=== PATIENT | male | born 1955 | race Caucasian/White ===

== ENCOUNTER 2016-12-09 04:18 | Inpatient (IN) | payer MEDICARE, OTHER ==
[2016-12-09] MEDS ORDERED: NS 0.9% 1000 ML* 1,000 ML IV SCH (04:45)
[2016-12-09 04:57] LABS: Hematocrit 38 % (42-52); Hemoglobin 12.8 g/dl (14.0-18.0); Mean Corpuscular HGB Conc 34 g/dl (31-36); Mean Corpuscular Hemoglobin 28 pg (27-31); Mean Corpuscular Volume 84 fL (80-94); Mean Platelet Volume 9 um3 (7.4-10.4); Red Blood Count 4.51 10^6/ul (4.0-5.4); Red Cell Distribution Width 13 % (10.5-15); White Blood Count 6.5 10^3/ul (3.5-10.8)
[2016-12-09 05:07] LABS: Albumin 3.8 g/dL (3.2-5.2); BUN/Creatinine Ratio 13.3 (8-20); Calcium 9.1 mg/dL (8.6-10.3); EGFR African American 84.3 (>60); EGFR Non-African American 65.5 (>60); Globulin 3.1 g/dL (2-4); Total Bilirubin 0.3 mg/dL (0.2-1.0); Total Protein 6.9 g/dL (6.4-8.9)
[2016-12-09] MEDS ORDERED: Insulin REGULAR(*) 1 UNITS UNIT IV PUSH ONE (05:12)
[2016-12-09] MEDS ORDERED: hydrALAZINE IV* 20 MG/ML VIAL IV PRN (05:50)
[2016-12-09] MEDS ORDERED: Melatonin (NF) 3 MG TAB PO PRN (05:50)
[2016-12-09] MEDS ORDERED: Acetaminophen TAB* 325 MG PO PRN (05:50)
[2016-12-09] MEDS ORDERED: Ondansetron INJ* 2 MG/ML VIAL IV PRN (05:53)
--- NOTE | 2016-12-09 06:14 | ED ---
Rachel Ugalde Matthew, scribed for Nicanor Knowles on 12/09/16 at 0523 . Neurological HPI - HPI Summary HPI Summary: A 61 y/o male presents to the ED by EMS after sustaining a fall this morning. Per EMS, the patient was found on the ground. At that time, he had slurred speech and unsteady gait. The patient was last seen well at 21:00 yesterday. Upon arrival to the ED, the patient states that he feels fine and denies any complaints. - History of Current Complaint Chief Complaint: EDNeurologicalDeficit Stated Complaint: STROKE Time Seen by Provider: 12/09/16 04:27 Hx Obtained From: Patient Onset/Duration: Started hours ago, Resolved Onset Severity: Moderate Current Severity: None Pain Intensity: 0 Pain Scale Used: 0-10 Numeric Associated Signs and Symptoms: Positive: Negative - Additional Pertinent History Primary Care Physician: ARABELLA - Allergy/Home Medications Allergies/Adverse Reactions: Allergies Allergy/AdvReac Type Severity Reaction Status Date / Time No Known Allergies Allergy Verified 03/12/13 05:38 PMH/Surg Hx/FS Hx/Imm Hx Endocrine/Hematology History: Reports: Hx Diabetes Cardiovascular History: Reports: Hx Angina, Hx Coronary Artery Disease, Hx Hypercholesterolemia, Hx Hypertension, Other Cardiovascular Problems/Disorders - carotid stenosis, intermediate coronary syndrome Denies: Hx Pacemaker/ICD Respiratory History: Reports: Other Respiratory Problems/Disorders - smoker Denies: Hx Asthma, Hx Chronic Obstructive Pulmonary Disease (COPD) History: Denies: Hx Dialysis, Hx Renal Disease Musculoskeletal History: Reports: Hx Back Problems - spinal fusion, laminerctomy decompression Sensory History: Reports: Hx Contacts or Glasses Denies: Hx Hearing Aid Opthamlomology History: Reports: Hx Contacts or Glasses Neurological History: Reports: Hx Seizures, Hx Spinal Cord Injury, Hx Transient Ischemic Attacks (TIA), Other Neuro Impairments/Disorders - essential tremor disorder Denies: Hx Dementia Psychiatric History: Reports: Hx Depression - off & on past 25 yrs, Hx Inpatient Treatment - in [facility] 2009, Hx Suicide Attempt - SI/ATTEMPT 05/2010 Denies: Hx Panic Disorder, Hx of Violent Episodes Against Others - Surgical History Surgery Procedure, Year, and Place: cardiac event, [facility] 1979, spinal fusion 1969-no metal he believes, lamanectomy, dental work, multiple broken bones including skull in high school PRIOR MRI 06/20/08, right CEA Hx Anesthesia Reactions: No - Immunization History Date of Tetanus Vaccine: unk Date of Influenza Vaccine: unk Infectious Disease History: No Infectious Disease History: Denies: Traveled Outside the [place] in Last 30 Days - Family History Known Family History: Positive: Diabetes - Social History Alcohol Use: None Hx Substance Use: No Substance Use Type: Reports: None Hx Tobacco Use: Yes Smoking Status (MU): Heavy Every Day Tobacco Smoker Type: Cigarettes Amount Used/How Often: 1 PPD Length of Time of Smoking/Using Tobacco: 40 years Have You Smoked in the Last Year: Yes Review of Systems Constitutional: Negative Eyes: Negative ENT: Negative Cardiovascular: Negative Respiratory: Negative Gastrointestinal: Negative Genitourinary: Negative Musculoskeletal: Negative Skin: Negative Neurological: Negative Psychological: Normal All Other Systems Reviewed And Are Negative: Yes Physical Exam Triage Information Reviewed: Yes Vital Signs On Initial Exam: Initial Vitals Temp Pulse Resp BP Pulse Ox 98.0 F 84 16 126/66 100 12/09/16 04:51 12/09/16 04:51 12/09/16 04:51 12/09/16 04:51 12/09/16 04:51 Vital Signs Reviewed: Yes Appearance: Positive: Well-Appearing, No Pain Distress Skin: Positive: Warm, Skin Color Reflects Adequate Perfusion, Dry Head/Face: Positive: Normal Head/Face Inspection Eyes: Positive: EOMI, [place] ENT: Positive: Normal ENT inspection Neck: Positive: Supple, Nontender Respiratory/Lung Sounds: Positive: Clear to Auscultation, Breath Sounds Present Cardiovascular: Positive: RRR, Pulses are Symmetrical in both Upper and Lower Extremities Abdomen Description: Positive: Nontender, Soft Bowel Sounds: Positive: Present Musculoskeletal: Positive: Normal, Strength/ROM Intact Neurological: Positive: Normal, Sensory/Motor Intact, Alert, Oriented to Person Place, Time, CN Intact II-III, Speech Normal. Negative: Facial Droop, Slurred Speech, Pronator Drift Present Psychiatric: Positive: Affect/Mood Appropriate - Brittney Coma Scale Coma Scale Total: 15 Diagnostics - Vital Signs Vital Signs Temp Pulse Resp BP Pulse Ox 12/09/16 04:51 98.0 F 84 16 126/66 100 - Laboratory Lab Results: Lab Results 12/09/16 Range/Units 04:45 WBC 6.5 (3.5-10.8) 10^3/ul RBC 4.51 (4.0-5.4) 10^6/ul Hgb 12.8 L (14.0-18.0) g/dl Hct 38 L (42-52) % MCV 84 (80-94) fL MCH 28 (27-31) pg MCHC 34 (31-36) g/dl RDW 13 (10.5-15) % Plt Count 154 (150-450) 10^3/ul MPV 9 (7.4-10.4) um3 Neut % (Auto) 70.4 (38-83) % Lymph % (Auto) 15.6 L (25-47) % [place] % (Auto) 10.6 H (1-9) % Eos % (Auto) 2.2 (0-6) % Baso % (Auto) 1.2 (0-2) % Absolute Neuts (auto) 4.6 (1.5-7.7) 10^3/ul Absolute Lymphs (auto) 1.0 (1.0-4.8) 10^3/ul Absolute Monos (auto) 0.7 (0-0.8) 10^3/ul Absolute Eos (auto) 0.1 (0-0.6) 10^3/ul Absolute Basos (auto) 0.1 (0-0.2) 10^3/ul Absolute Nucleated RBC 0 10^3/ul Nucleated RBC % 0 Result Diagrams: 12/09/16 04:45 12/09/16 04:45 Lab Statement: Any lab studies that have been ordered have been reviewed, and results considered in the medical decision making process. - Radiology CXR Xray Interpretation: No Acute Changes Radiology Interpretation Completed By: ED Physician - CT Brain CT CT Interpretation: No Acute Changes - No CT evidence of acute infarct, hemorrhage, or mass effect. Patchy periventricular and subcortical white matter hypoattenuations seen. These are nonspecific and can be seen in the setting of chronic microvascular ischemic changes. Intracranial vascular calcifications noted. Nonspecific 8.3mm lobular hyper density seen in the left foramina of luscka of unclear clinical significance. Recommended follow up with MRI for further characterization. No hydrocephalus. CT Interpretation Completed By: Radiologist NIH Scale - NIH Scale Level of Consciousness: Alert/Keenly Responsive Ask Patient the Month and His/Her Age: Both Correct Ask Pt to Open/Close Eyes and Crude Tester/Release Non-Paretic Hand: Both Correctly Best Gaze (Only Horizontal Eye Movement): Normal Visual Field Testing: No Visual Loss Facial Paresis-Pt to Smile & Close Eyes or Grimace Symmetry: Normal/Symmetrical Motor Function - Right Arm: No Drift-Holds 10 Seconds Motor Function - Left Arm: No Drift-Holds 10 Seconds Motor Function - Right Leg: No Drift-Holds 10 Seconds Motor Function - Left Leg: No Drift-Holds 10 Seconds Limb Ataxia-Must be out of Proportion to Weakness Present: Absent Sensory (Use Pinprick to Test Arms/Legs/Trunk/Face): Normal Best Language (Describe Picture, Name Items): No Aphasia Dysarthria (Read Several Words): Normal Extinction and Inattention: No Abnormality Total Score: 0 Course/Dx - Course Assessment/Plan: A 61 y/o male presents to the ED by EMS after sustaining a fall this morning. Per EMS, the patient was found on the ground. At that time, he had slurred speech and unsteady gait. The patient was last seen well at 21: 00 yesterday. Upon arrival to the ED, the patient states that he feels fine and denies any complaints. Labs were reviewed and show an elevated glucose of 537. CXR shows no acute changes. Brain CT shows no evidence of acute infarct, hemorrhage, or mass effect. NIH was found to be 0. The patients symptoms were resolving upon arrival to the ED. Discussed the case with Dr. Junior who will admit the patient into his services. - Diagnoses Provider Diagnoses: TIA (transient ischemic attack), Hyperglycemia During the Visit The Following Alert/Code Occurred: Code Romero - Physician Notifications Discussed Care of Patient With: Dr. Junior (Hospitalist) at 05:44 -- Notified of patient's history and will admit the patient into his services. - Critical Care Time Critical Care Time: 30-74 min Discharge - Discharge Plan Condition: Stable Disposition: ADMITTED TO [facility] documentation as recorded by the Rachel shah Matthew accurately reflects the service I personally performed and the decisions made by me, Nicanor Knowles.
[2016-12-09 07:00] LABS: HDL Cholesterol 44.9 mg/dL
--- NOTE | 2016-12-09 08:02 | RAD ---
Indication: Stroke, weakness. CT of the brain was performed without IV contrast. Comparison is made with previous exam dated March 12, 2013 Ventricular structures are midline. No midline shift is noted. The extraction spaces are unremarkable. There is no evidence of intracranial mass or hemorrhage. No other high or low density lesions are identified. Periventricular lucency consistent with chronic ischemic White matter change is noted. No significant change is noted since prior exam. The bony structures demonstrates mastoid air cells and paranasal sinuses to be grossly unremarkable. IMPRESSION: CHRONIC ISCHEMIC WHITE MATTER CHANGE WITH NO INTRACRANIAL MASS OR HEMORRHAGE. Findings discussed with Dr. Knowles at 4:[address] Whitten from [facility]. This is documented on PACS.
--- NOTE | 2016-12-09 08:04 | HP ---
H&P (Free Text) History and Physical: PCP: Arcenio Shell MD Date/Time of Evaluation: 12/09/2016 0600 CC: syncope, TIA HPI: Mr Doty is a 61YO male HX recurrent TIAs & DM who was up at 0215 having some diarrhea. After leaving the restroom, he suddenly developed some spinning dizziness and the next thing he knew he was on his hands and knees across his house outside of his bedroom door on his hands and knees. His who had been asleep heard him knocking and helped him up to bed. He was noted to have a lump on the back of his head. Some uncertain time later, he got up to use the restroom again having diarrhea and upon leaving the bathroom his noticed he paused and stared into space, not responding to her talking to him. This lasted only a minute and when he came out of it his speech was garbled and he had a R facial droop. Upon arrival to [facility], all his symptoms were resolved. He does admit to some non-radiating substernal chest pressure with mild SOB, but no N/V, diaphoresis, or other associations after the syncope. PMedHx DM2 HTN septic knee recurrent TIAs carotid artery disease s/p R CEA essential tremor depression Allergies No Known Allergies Allergy (Verified 03/12/13 05:38) Ambulatory Orders Nursing to reconcile. PSurgHx lumbar laminectomy R CEA SocHx: current 1/2PPD cigarettes, no alcohol or recreational drugs; lives with his ; full code status FamHx: positive for HTN, DM ROS: as above, otherwise reviewed and all were negative Constitutional: NAD, normally developed, obese white male vitals: Vital Signs Temp 36.7 C 12/09/16 04:51 Pulse 84 12/09/16 04:51 Resp 16 12/09/16 04:51 BP 126/66 12/09/16 04:51 Pulse Ox 100 12/09/16 04:51 Intake & Output 12/08/16 12/08/16 12/09/16 11:59 23:59 12:59 Weight 79.832 kg HEENM: atraumatic; sclera/conjunctiva: non-icteric/clear; hearing: clinically intact; oropharynx: clear, mucosa moist Neck: soft tissue: non-tender; thyroid: normal Pulmonary: clear to auscultation bilaterally, good aeration, no accessory muscle use CV: RR/RR, normal S1S2, no carotid bruit, no jugular venous distention, 2+ B DP/ PT, no edema Abdominal: soft, non-distended, non-tender, no rebound/guarding/rigidity, normoactive bowel sounds, no hepatosplenomegaly or masses, no costovertebral angle tenderness Musculoskeletal: general: grossly intact; gait: stable Integumental: normal appearance & texture of exposed skin Neurological cranial nerves III/IV/: symmetric light reflex, EOMI/PERRLA V: intact facial sensation VII: intact facial symmetry VIII: intact hearing IX/X: symmetric palatal motion, no dysarthria XII: midline tongue protrusion, normal voice articulation motor: L handed LUE: 4/5 proximally, distally, & delivery helper strength RUE: 4/5 proximally, distally, & delivery helper strength LLE: 4/5 proximally & distally RLE: 4/5 proximally & distally coordination finger/nose: symmetric, hindered by essential tremor sensory crude touch: intact globally pinprick: mildly decreased LUE proprioception: intact B feet Psychiatric orientation: AA&O to PPS affect: calm mood: cooperative/pleasant eye contact: good content: reliable memory: absent regarding part of event responses: timely insight: fair Testing: Lab Results 12/09/16 12/09/16 12/09/16 Range/Units 04:45 04:45 04:45 WBC 6.5 (3.5-10.8) 10^3/ul RBC 4.51 (4.0-5.4) 10^6/ul Hgb 12.8 L (14.0-18.0) g/dl Hct 38 L (42-52) % MCV 84 (80-94) fL MCH 28 (27-31) pg MCHC 34 (31-36) g/dl RDW 13 (10.5-15) % Plt Count 154 (150-450) 10^3/ul MPV 9 (7.4-10.4) um3 Neut % (Auto) 70.4 (38-83) % Lymph % (Auto) 15.6 L (25-47) % [place] % (Auto) 10.6 H (1-9) % Eos % (Auto) 2.2 (0-6) % Baso % (Auto) 1.2 (0-2) % Absolute Neuts (auto) 4.6 (1.5-7.7) 10^3/ul Absolute Lymphs (auto) 1.0 (1.0-4.8) 10^3/ul Absolute Monos (auto) 0.7 (0-0.8) 10^3/ul Absolute Eos (auto) 0.1 (0-0.6) 10^3/ul Absolute Basos (auto) 0.1 (0-0.2) 10^3/ul Absolute Nucleated RBC 0 10^3/ul Nucleated RBC % 0 INR (Anticoag Therapy) 0.86 L (0.89-1.11) Sodium 128 L (133-145) mmol/L Potassium 5.0 (3.5-5.0) mmol/L Chloride 96 L (101-111) mmol/L Carbon Dioxide 27 (22-32) mmol/L Anion Gap 5 (2-11) mmol/L BUN 15 (6-24) mg/dL Creatinine 1.13 (0.67-1.17) mg/dL Est GFR ( Amer) 84.3 (>60) Est GFR (Non-Af Amer) 65.5 (>60) BUN/Creatinine Ratio 13.3 (8-20) Glucose 537 H* (70-100) mg/dL POC Glucose (mg/dL) (74-106) mg/dL Calcium 9.1 (8.6-10.3) mg/dL Total Bilirubin 0.30 (0.2-1.0) mg/dL AST 8 L (13-39) U/L ALT 13 (7-52) U/L Alkaline Phosphatase 61 (34-104) U/L Total Protein 6.9 (6.4-8.9) g/dL Albumin 3.8 (3.2-5.2) g/dL Globulin 3.1 (2-4) g/dL Albumin/Globulin Ratio 1.2 (1-3) Triglycerides 300 mg/dL Cholesterol 173 mg/dL LDL Cholesterol 68 mg/dL HDL Cholesterol 44.9 mg/dL 12/09/16 12/09/16 Range/Units 06:39 07:36 WBC (3.5-10.8) 10^3/ul RBC (4.0-5.4) 10^6/ul Hgb (14.0-18.0) g/dl Hct (42-52) % MCV (80-94) fL MCH (27-31) pg MCHC (31-36) g/dl RDW (10.5-15) % Plt Count (150-450) 10^3/ul MPV (7.4-10.4) um3 Neut % (Auto) (38-83) % Lymph % (Auto) (25-47) % [place] % (Auto) (1-9) % Eos % (Auto) (0-6) % Baso % (Auto) (0-2) % Absolute Neuts (auto) (1.5-7.7) 10^3/ul Absolute Lymphs (auto) (1.0-4.8) 10^3/ul Absolute Monos (auto) (0-0.8) 10^3/ul Absolute Eos (auto) (0-0.6) 10^3/ul Absolute Basos (auto) (0-0.2) 10^3/ul Absolute Nucleated RBC 10^3/ul Nucleated RBC % INR (Anticoag Therapy) (0.89-1.11) Sodium (133-145) mmol/L Potassium (3.5-5.0) mmol/L Chloride (101-111) mmol/L Carbon Dioxide (22-32) mmol/L Anion Gap (2-11) mmol/L BUN (6-24) mg/dL Creatinine (0.67-1.17) mg/dL Est GFR ( Amer) (>60) Est GFR (Non-Af Amer) (>60) BUN/Creatinine Ratio (8-20) Glucose (70-100) mg/dL POC Glucose (mg/dL) 233 H 252 H (74-106) mg/dL Calcium (8.6-10.3) mg/dL Total Bilirubin (0.2-1.0) mg/dL AST (13-39) U/L ALT (7-52) U/L Alkaline Phosphatase (34-104) U/L Total Protein (6.4-8.9) g/dL Albumin (3.2-5.2) g/dL Globulin (2-4) g/dL Albumin/Globulin Ratio (1-3) Triglycerides mg/dL Cholesterol mg/dL LDL Cholesterol mg/dL HDL Cholesterol mg/dL ECG, personally reviewed: CXR, personally reviewed: IMPRESSION: No CT evidence of acute infarct, hemorrhage, or mass effect. Patchy periventricular and subcortical white matter hypoattenuation seen. These are non-specific and can be seen in the setting of chronic microvascular ischemic changes. Intracranial vascular calcifications noted. Impression: 61M presenting with syncope and post-dromal chest pressure/SOB, slurred speech, & R facial droop DIAGNOSIS & PLAN Primary syncope/TIA : telemetry : neurochecks : supplemental oxygen : aspirin : carotid US : MRI brain WO : no indication for PT/ST/OT : supportive care chest pressure : telemetry : supplemental oxygen : aspirin : trend troponin : consider stress test on Saturday vs cardiology consult in AM DM2, uncontrolled : insulin carb ratio diet : basal/bolus/correctional protocol : check A1c Secondary HTN : review meds once reconciled carotid artery disease s/p R CEA : review meds once reconciled essential tremor : review meds once reconciled depression : review meds once reconciled Admission Rational: inpatient for TIA & cardiac work up not able to be completed w/i 24hours DVTp: heparin SQ Code Status: full HCP:
[2016-12-09 08:34] LABS: Troponin I 0.01 ng/mL (<0.04)
--- NOTE | 2016-12-09 08:37 | PN ---
Subjective Date of Service: 12/09/16 Interval History: Patient reports he feels much better and his symptoms resolved prior to coming into the hospital and haven't returned. He reports it has been "many years since a TIA, maybe 2012". He denies any weakness, dizziness, numbness or tingling. No slurred speech. He reports he feels a little wobbly on his feet. Per patient he started to developed diarrhea 10 months ago intermittently, starting 3 months ago it has been daily with up to 6 water stools a day. He is followed by Dr. Farris. Objective Active Medications: Acetaminophen (Tylenol Tab*) 650 mg PO Q6H PRN PRN Reason: FEVER/PAIN Aspirin (Aspirin Tab*) 325 mg PO DAILY ANGUS Docusate Sodium (Colace Cap*) 200 mg PO BID ANGUS Heparin Sodium (Porcine) (Heparin Vial(*)) 5,000 units SUBCUT Q8HR ANGUS Hydralazine HCl (Apresoline Iv*) 10 mg IV Q4H PRN PRN Reason: Systolic >170 Sodium Chloride (Ns 0.9% 1000 Ml*) 1,000 mls @ 125 mls/hr IV PER RATE [facility] Insulin Glargine (Lantus(*)) 16 units SUBCUT 2100 ANGUS Stop: 12/10/16 20:00 Insulin Human Lispro (Humalog*) 0 units SUBCUT AC ANGUS PRN Reason: Protocol Insulin Human Lispro (Humalog*) 0 units SUBCUT ACHS ANGUS PRN Reason: Protocol Melatonin (Melatonin (Nf)) 3 mg PO BEDTIME PRN; Protocol PRN Reason: Sleep Omeprazole (Prilosec Cap*) 20 mg PO DAILY@0600 ANGUS Ondansetron HCl (Zofran Inj*) 4 mg IV Q6H PRN PRN Reason: NAUSEA Vital Signs 12/09/16 12/09/16 12/09/16 06:00 06:30 07:00 Pulse Rate 77 Respiratory 15 16 17 Rate Blood Pressure 114/59 107/40 104/51 (mmHg) O2 Sat by Pulse 99 Oximetry 12/09/16 08:08 Pulse Rate 81 Respiratory 18 Rate Blood Pressure (mmHg) O2 Sat by Pulse Oximetry Oxygen Devices in Use Now: None Appearance: obese female laying in bed in NAD. A+O x3 Eyes: No Scleral Icterus, PERRLA Ears/Nose/Mouth/Throat: - - Dry MM Neck: NL Appearance and Movements; NL JVP Respiratory: Symmetrical Chest Expansion and Respiratory Effort, Clear to Auscultation Cardiovascular: NL Sounds; No Murmurs; No JVD, RRR, No Edema Abdominal: NL Sounds; No Tenderness; No Distention Extremities: No Edema, No Clubbing, Cyanosis Skin: No Rash or Ulcers, No Nodules or Sclerosis Neurological: Alert and Oriented x 3, NL Sensation, NL Muscle Strength and Tone , - - tongue is midlien. No noted facial droop. No pronator drift, Clear speech. 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 Strength 5/5 throught, full ROM throughout. + sensation to extremities Lines/Tubes/Other Access: Clean, Dry and Intact Peripheral IV Nutrition: Taking PO's Result Diagrams: 12/09/16 04:45 12/09/16 04:45 Additional Lab and Data: Lab Results 12/09/16 Range/Units 04:45 WBC 6.5 (3.5-10.8) 10^3/ul RBC 4.51 (4.0-5.4) 10^6/ul Hgb 12.8 L (14.0-18.0) g/dl Hct 38 L (42-52) % MCV 84 (80-94) fL MCH 28 (27-31) pg MCHC 34 (31-36) g/dl RDW 13 (10.5-15) % Plt Count 154 (150-450) 10^3/ul MPV 9 (7.4-10.4) um3 Neut % (Auto) 70.4 (38-83) % Lymph % (Auto) 15.6 L (25-47) % [place] % (Auto) 10.6 H (1-9) % Eos % (Auto) 2.2 (0-6) % Baso % (Auto) 1.2 (0-2) % Absolute Neuts (auto) 4.6 (1.5-7.7) 10^3/ul Absolute Lymphs (auto) 1.0 (1.0-4.8) 10^3/ul Absolute Monos (auto) 0.7 (0-0.8) 10^3/ul Absolute Eos (auto) 0.1 (0-0.6) 10^3/ul Absolute Basos (auto) 0.1 (0-0.2) 10^3/ul Absolute Nucleated RBC 0 10^3/ul Nucleated RBC % 0 Assess/Plan/Problems-Billing Assessment: Mr. Doty is a 61 yo male with a PMH of hx of stroke 13 years ago , and hx of multiple TIAs, s/p carotid endarectomy, DM2, hx of septic knee and HTN who presented to the emergency department on 12/09 with c/o syncope, Chest pressure/sob, diarrhea, dizziness and slurred speech and R facial droop, symptoms resolved [place] [facility] [place] - Patient Problems (1) TIA (transient ischemic attack) Comment: - Concerning for TIA. Possible syncopal episode. Pts symptoms have resolved. - Plan for MRI WO, carotid US, CTA head/neck - Continue tele monitoring, neuro checks - Pt underwent a SINGH 02/2013 with no noted PFO. Plan to repeat TTE with bubble study. - Neuro consult - check fasting lipids in am (2) Syncope Comment: - unclear etiology at this time - continue tele monitoring - check orthostatic - TTE (3) Chest pain Comment: - resolved, suspect stress related - Initial troponin 0.01, recheck 2nd trop - negative Nuclear stress test 12/2015 (4) Hyponatremia Comment: - suspect dehydration. - continue NS @ 125 ml/hr - recheck in am (5) Diabetes mellitus Comment: - FSBG ACHS - Continue Lantus 16 units Qday, Lispro SS and carb counting scale - add on HgA1C (6) Essential tremor Comment: - continue lamictal (7) Chronic diarrhea Comment: - followed by Dr. Farris - developed diarrhea 10 months ago, no dx. Plan for Barium study at the end of the month. - suspect the patient is dehydrated. - Fluid resusitation. - monitor stool output (8) DVT prophylaxis Comment: SQ heparin (9) Full code status Status and Disposition: inpatient for syncope, and concern for TIA. Home when medically stable
--- NOTE | 2016-12-09 08:47 | RAD ---
Indication: Stroke. Single frontal view of the chest performed at 0446 hours was reviewed. Comparison is made with previous exam dated April 19, 2016. No mediastinal shift is noted. Heart is of normal size and configuration. Lung landers appear clear. IMPRESSION: NO ACTIVE CARDIOPULMONARY DISEASE IS NOTED.
[2016-12-09] MEDS ORDERED: Docusate CAP* 100 MG PO SCH (09:00)
[2016-12-09] MEDS ORDERED: Iohexol 350* (CONTRAST) 500 ML MDV IV ONE (09:27)
[2016-12-09] MEDS: Aspirin TAB* 325 MG PO SCH ×2 (10:08→11:04)
[2016-12-09] MEDS: Insulin LISPRO* 1 UNITS UNIT SUBCUT SCH ×7 (10:09→21:06)
[2016-12-09] MEDS: Omeprazole CAP* 20 MG PO SCH (10:09)
--- NOTE | 2016-12-09 11:54 | RAD ---
Indication: Transient ischemic attack. Contrast: Administered 80.3 ml of OMNIPAQUE 350 mg/ml CTA of the neck and head was performed after IV contrast administration. Coronal, sagittal and 3-D reconstructed images were obtained. The aortic arch and origin of the great vessels are unremarkable. Atherosclerosis of the aortic arch is noted. The common carotid arteries bilaterally are unremarkable. The right common carotid bulb demonstrates no intimal wall thickening. The origin of the right internal carotid artery is unremarkable. No evidence of carotid artery dissection is noted. The left common carotid artery demonstrates soft plaque in the mid left common carotid artery. There is plaque at the origin of the left internal carotid artery which is calcific. There may be a less than 50% stenosis of the origin of left internal carotid artery. No evidence of carotid artery dissection is noted. CTA of the head demonstrates intracranial carotid arteries demonstrate normal bifurcation. Anterior and middle cerebral arteries are unremarkable. Posterior cerebral arteries are unremarkable. No aneurysmal dilatation or branch occlusion is noted. IMPRESSION: Less than 50% STENOSIS AT THE ORIGIN OF THE LEFT INTERNAL CAROTID ARTERY DUE TO CALCIFIED PLAQUE. NO CAROTID ARTERY DISSECTION IS NOTED. NO BRANCH OCCLUSION IS NOTED. NO A RESIDUAL DILATATION IS NOTED.
[2016-12-09] MEDS: NS 0.9% 1000 ML* 1,000 ML IV SCH ×2 (12:55→21:23)
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
[2016-12-09] MEDS ORDERED: Ondansetron TAB* 4 MG PO PRN (17:57)
[2016-12-09] MEDS: Dicyclomine CAP* 10 MG PO SCH ×2 (20:11→23:27)
[2016-12-09] MEDS ORDERED: Insulin GLARGINE(*) 1 UNITS UNIT SUBCUT SCH ×3 (21:00)
[2016-12-09] MEDS: lamoTRIgine TAB(*) 100 MG PO SCH (21:05)
[2016-12-09] MEDS: LORazepam TAB(*) 1 MG PO SCH (21:06)
[2016-12-10] MEDS: Dicyclomine CAP* 10 MG PO SCH ×3 (05:58→17:33)
[2016-12-10] MEDS: Heparin VIAL(*) 5000 UNITS/ML VIAL (FIVE THOUSAND) SUBCUT SCH ×2 (05:59→13:54)
[2016-12-10] MEDS: Omeprazole CAP* 20 MG PO SCH (05:59)
[2016-12-10 07:05] LABS: Hematocrit 35 % (42-52); Mean Corpuscular HGB Conc 35 g/dl (31-36); Mean Corpuscular Hemoglobin 29 pg (27-31); Mean Corpuscular Volume 84 fL (80-94); Mean Platelet Volume 8 um3 (7.4-10.4); Red Blood Count 4.16 10^6/ul (4.0-5.4); Red Cell Distribution Width 13 % (10.5-15); White Blood Count 6.9 10^3/ul (3.5-10.8)
[2016-12-10 07:17] LABS: BUN/Creatinine Ratio 11.7 (8-20); Calcium 8.8 mg/dL (8.6-10.3); EGFR African American 104.2 (>60); EGFR Non-African American 81.1 (>60); HDL Cholesterol 46.7 mg/dL; Potassium 4.4 mmol/L (3.5-5.0)
[2016-12-10] MEDS ORDERED: BuPROPion XL* 300 MG TAB.XL PO SCH (09:00)
[2016-12-10] MEDS ORDERED: Sertraline* 50 MG TAB PO SCH (09:00)
[2016-12-10] MEDS: Insulin LISPRO* 1 UNITS UNIT SUBCUT SCH ×6 (09:28→17:33)
[2016-12-10] MEDS: Aspirin TAB* 325 MG PO SCH (09:29)
[2016-12-10] MEDS: LORazepam TAB(*) 1 MG PO SCH ×2 (09:30→17:26)
[2016-12-10] MEDS: lamoTRIgine TAB(*) 100 MG PO SCH (09:30)
--- NOTE | 2016-12-10 10:05 | RAD ---
Indication: Transient ischemic attack, weakness. Image Sequences: Sagittal and axial T1, axial T2, FLAIR, diffusion and susceptibility weighted images of the brain were obtained. Comparison is made with previous exam dated March 12, 2013. Ventricular structures are midline. No midline shift is noted. The extra-axial spaces are unremarkable. Periventricular signal abnormality in the left parietal lobe is noted. This was present on previous exam and has not significantly changed. This likely represents an old infarct and is unchanged. No restriction of diffusion is noted. Currently, no areas of restriction of diffusion is noted. The FLAIR images demonstrate some increased signal in the bridgette which is unchanged from previous exam. Mild ethmoid sinusitis is noted. The orbits are otherwise unremarkable. The mastoid air cells are unremarkable. IMPRESSION: 1. On the FLAIR images, periventricular signal abnormality in the left lateral ventricle appears to be unchanged from previous exam and is consistent with old infarct. No restriction of diffusion is noted currently. 2. Chronic ischemic White matter change is noted. This appears stable since previous exam.
[2016-12-10 12:22] VITALS: BP 138/64
--- NOTE | 2016-12-10 14:28 | CONSULT ---
Subjective Reason for Visit: syncope, TIA Admission Date: 12/09/16 Glucose Level On Admission: 537 History Of Present Illness: Mr. Doty is a 61 year old male who was found by his after a syncopal episode with garbled speech and right sided facial droop. He has a history of multiple TIAs in the past. He was brought to the hospital and admitted. On admission, he was found to have a glucose of 537. He has been a type II diabetic for years. Has never had any formal diabetes education. Does not count carbohydrates. Checks blood sugar twice a day. He reports that his fasting blood glucose has been in the 170-200 range. On the day that he had the syncopal episode, he ate a pint of ice cream and some banana cream pie. He is not exercising at all right now due to a healing ulcer on his right foot, but has been more active in the past. Patient History Surgical History: Yes Surgery Procedure, Year, and Place: SPINAL FUSION, ENDARTECTOMY 2012, COMPRESSION FX, LAMINECTOMY, KNEE SURGERY Lives With: Partner Marital Status: Social Support: is at bedside and is supportive Preferred/Primary Language: Frisian Hx Tobacco Use: Yes Exercise: none now, enjoys swimming Review Of Systems - Review of Systems Constant: No Weight Loss, No Weight Gain, No Anorexia, No Poor Appetite Respiratory: No Shortness Of Breath, No Productive Cough, No Pulmonary Conditions, - Abdominal: - - reports diarrhea Skin: - - healing ulcer plantar aspect of right foot Endocrine: - - reports polyuria, polyphagia, and polydipsia Objective Allergies Allergy/AdvReac Type Severity Reaction Status Date / Time No Known Allergies Allergy Verified 03/12/13 05:38 Home Medications Medication Instructions Recorded Confirmed Type glipiZIDE TAB.XL* [Glucotrol Xl*] 5 mg PO DAILY 03/12/13 12/09/16 History BuPROPion XL* [Bupropion XL*] 300 mg PO DAILY tab.xl 10/03/15 12/09/16 Rx lamoTRIgine TAB(*) [Lamictal 200 mg PO BID tab 10/03/15 12/09/16 Rx TAB(*)] metFORMIN* [Glucophage 1000 MG TAB 1,000 mg PO 0800,1700 tab 10/03/15 12/09/16 Rx *] Lisinopril TAB* [Prinivil TAB 10 20 mg PO DAILY #30 tab 10/19/15 12/09/16 Rx MG*] Dicyclomine CAP* [Bentyl CAP*] 10 mg PO Q6H 12/09/16 12/09/16 History Insulin LISPRO* [HumaLOG*] 1 units SUBCUT SEE INSTRUCTIONS 12/09/16 12/09/16 History Lorazepam [Ativan 1 MG TAB] 1 mg PO TID 12/09/16 12/09/16 History Metoclopramide TAB* 10 mg PO TID PRN 12/09/16 12/09/16 History Ondansetron HCl [Zofran 4 MG TAB] 4 mg PO Q8H PRN 12/09/16 12/09/16 History Pravastatin Sodium [Pravachol] 20 mg PO DAILY 12/09/16 12/09/16 History Sertraline HCl 50 mg PO DAILY 12/09/16 12/09/16 History Sertraline HCl [Zoloft] 200 mg PO BID 12/09/16 12/09/16 History Hospital Medications: Current Medications Acetaminophen (Tylenol Tab*) 650 mg PO Q6H PRN PRN Reason: FEVER/PAIN Aspirin (Aspirin Tab*) 325 mg PO DAILY [facility] Last Admin: 12/10/16 09:29 Dose: 325 mg Bupropion HCl (Bupropion Xl*) 300 mg PO DAILY [facility] Last Admin: 12/10/16 09:49 Dose: 300 mg Dicyclomine HCl (Bentyl Cap*) 10 mg PO Q6H [facility] Last Admin: 12/10/16 13:49 Dose: 10 mg Heparin Sodium (Porcine) (Heparin Vial(*)) 5,000 units SUBCUT Q8HR [facility] Last Admin: 12/10/16 13:54 Dose: Not Given Hydralazine HCl (Apresoline Iv*) 10 mg IV Q4H PRN PRN Reason: Systolic >170 Insulin Glargine (Lantus(*)) 16 units SUBCUT 2100 [facility] Stop: 12/10/16 20:00 Last Admin: 12/09/16 21:07 Dose: 16 units Insulin Human Lispro (Humalog*) 0 units SUBCUT AC [facility] PRN Reason: Protocol Last Admin: 12/10/16 13:14 Dose: 7 units Insulin Human Lispro (Humalog*) 0 units SUBCUT ACHS [facility] PRN Reason: Protocol Last Admin: 12/10/16 13:15 Dose: 6 units Lamotrigine (Lamictal Tab(*)) 200 mg PO BID [facility] Last Admin: 12/10/16 09:30 Dose: 200 mg Lorazepam (Ativan Tab(*)) 1 mg PO TID [facility] Last Admin: 12/10/16 09:30 Dose: 1 mg Melatonin (Melatonin (Nf)) 3 mg PO BEDTIME PRN; Protocol PRN Reason: Sleep Omeprazole (Prilosec Cap*) 20 mg PO DAILY@0600 [facility] Last Admin: 12/10/16 05:59 Dose: 20 mg Ondansetron HCl (Zofran Inj*) 4 mg IV Q6H PRN PRN Reason: NAUSEA Ondansetron HCl (Zofran Tab*) 4 mg PO Q8H PRN PRN Reason: NAUSEA Sertraline HCl (Zoloft*) 50 mg PO DAILY [facility] Last Admin: 12/10/16 09:32 Dose: 50 mg Lab Data: Sodium 134 mmol/L (133-145) 12/10/16 06:31 Potassium 4.4 mmol/L (3.5-5.0) 12/10/16 06:31 BUN 11 mg/dL (6-24) 12/10/16 06:31 Creatinine 0.94 mg/dL (0.67-1.17) 12/10/16 06:31 Hemoglobin A1c 9.7 % (Less than 6.0) H 12/09/16 04:45 Calcium 8.8 mg/dL (8.6-10.3) 12/10/16 06:31 AST 8 U/L (13-39) L 12/09/16 04:45 ALT 13 U/L (7-52) 12/09/16 04:45 Triglycerides 239 mg/dL 12/10/16 06:31 Cholesterol 179 mg/dL 12/10/16 06:31 LDL Cholesterol 85 mg/dL 12/10/16 06:31 Vital Signs: Vital Signs 12/10/16 12/10/16 12/10/16 07:51 07:58 08:00 Temperature Pulse Rate 70 Respiratory 20 15 15 Rate Blood Pressure 115/60 (mmHg) O2 Sat by Pulse 96 Oximetry 12/10/16 12/10/16 12/10/16 09:30 11:30 12:09 Temperature 36.7 C Pulse Rate 72 Respiratory 14 15 14 Rate Blood Pressure 138/64 (mmHg) O2 Sat by Pulse 99 Oximetry 12/10/16 13:49 Temperature Pulse Rate Respiratory 16 Rate Blood Pressure (mmHg) O2 Sat by Pulse Oximetry Height: 5 ft 7 in Weight: 80.286 kg Body Mass Index (BMI): 27.7 Physical Exam General Appearance: Positive: Alert, Oriented x3, Well Developed, Overweight, Lying In Bed Dentition: Positive: Dentition in Good Repair Respiratory: Positive: Non-Labored Peripheral Extremities: Positive: Pulse: Dosalis Pedis Skin: Ulcers - 1 cm healing ulcer right plantar foot, Insulin Injection Sites - benign Plan Of Care Patient's Next Step: Pt to be discharged to home. He has a significant knowledge deficit related to diabetes. We discussed in detail carbohydrate counting and reading nutrition labels, as well as signs and symptoms of hyper and hypoglycemia. Discussed weight and exercise and their role in the disease process. Briefly discussed the pathophysiology and progression of the disease. I encouraged him to follow up at [facility] for further diabetes education, Living Well with Diabetes, and/or DSME classes. He and his are interested in this and will follow up on an outpatient basis Referral To: [facility] For Further OutPT Diabetic Training Diagnosis: Type II diabetes, not well controlled Discharge Plan: Follow up at [facility] as an outpatient Education Prior Diabetic Education: No Education Provided: Insulin To Carb Ratio and Carb Counting, Blood Glucose Monitoring Handouts Provided: Living well with diabetes, my plate, 60 gm. carbohydrate Goals Goals: According to the [place] [employer], the following are your goals for Hemaglobin A1C, Blood Glucose, Cholesterol and Blood Pressure. Hemaglobin A1C * <7.0% for most * <6.5% for "healthy" * <8.0% for "Less Healthy" Blood Glucose * Fasting Blood Glucose: 80-130 mg/dl * 2 Hour Post Prandial Glucose <180 mg/dl Cholesterol * Triglycerides <150 * LDL <100, Overt CVD <70 * HDL >40
--- NOTE | 2016-12-10 16:44 | DCNOTE ---
Subjective Date of Service: 12/10/16 Interval History: Pt reports he feels much better and would like to go home. Pt has been ambulating around the unit w/o difficulty. No dizziness, sob or CP. No fevers or chills Objective Active Medications: Acetaminophen (Tylenol Tab*) 650 mg PO Q6H PRN PRN Reason: FEVER/PAIN Aspirin (Aspirin Tab*) 325 mg PO DAILY [facility] Last Admin: 12/10/16 09:29 Dose: 325 mg Bupropion HCl (Bupropion Xl*) 300 mg PO DAILY [facility] Last Admin: 12/10/16 09:49 Dose: 300 mg Dicyclomine HCl (Bentyl Cap*) 10 mg PO Q6H [facility] Last Admin: 12/10/16 13:49 Dose: 10 mg Heparin Sodium (Porcine) (Heparin Vial(*)) 5,000 units SUBCUT Q8HR [facility] Last Admin: 12/10/16 13:54 Dose: Not Given Hydralazine HCl (Apresoline Iv*) 10 mg IV Q4H PRN PRN Reason: Systolic >170 Insulin Glargine (Lantus(*)) 16 units SUBCUT 2100 [facility] Stop: 12/10/16 20:00 Last Admin: 12/09/16 21:07 Dose: 16 units Insulin Human Lispro (Humalog*) 0 units SUBCUT AC [facility] PRN Reason: Protocol Last Admin: 12/10/16 13:14 Dose: 7 units Insulin Human Lispro (Humalog*) 0 units SUBCUT ACHS [facility] PRN Reason: Protocol Last Admin: 12/10/16 13:15 Dose: 6 units Lamotrigine (Lamictal Tab(*)) 200 mg PO BID [facility] Last Admin: 12/10/16 09:30 Dose: 200 mg Lorazepam (Ativan Tab(*)) 1 mg PO TID [facility] Last Admin: 12/10/16 09:30 Dose: 1 mg Melatonin (Melatonin (Nf)) 3 mg PO BEDTIME PRN; Protocol PRN Reason: Sleep Omeprazole (Prilosec Cap*) 20 mg PO DAILY@0600 [facility] Last Admin: 12/10/16 05:59 Dose: 20 mg Ondansetron HCl (Zofran Inj*) 4 mg IV Q6H PRN PRN Reason: NAUSEA Ondansetron HCl (Zofran Tab*) 4 mg PO Q8H PRN PRN Reason: NAUSEA Sertraline HCl (Zoloft*) 50 mg PO DAILY [facility] Last Admin: 12/10/16 09:32 Dose: 50 mg Vital Signs 12/09/16 12/09/16 12/09/16 19:40 20:00 20:11 Temperature 98.4 F Pulse Rate 91 Respiratory 16 15 16 Rate Blood Pressure 112/88 (mmHg) O2 Sat by Pulse 97 Oximetry 12/09/16 12/09/16 12/09/16 21:06 22:11 23:06 Temperature Pulse Rate Respiratory 16 14 15 Rate Blood Pressure (mmHg) O2 Sat by Pulse Oximetry 12/09/16 12/09/16 12/10/16 23:27 23:54 03:59 Temperature 98.7 F 98.2 F Pulse Rate 81 71 Respiratory 15 16 16 Rate Blood Pressure 137/59 146/63 (mmHg) O2 Sat by Pulse 97 96 Oximetry 12/10/16 12/10/16 12/10/16 05:58 07:51 07:58 Temperature Pulse Rate 70 Respiratory 16 20 15 Rate Blood Pressure 115/60 (mmHg) O2 Sat by Pulse 96 Oximetry 12/10/16 12/10/16 12/10/16 08:00 09:30 11:30 Temperature Pulse Rate Respiratory 15 14 15 Rate Blood Pressure (mmHg) O2 Sat by Pulse Oximetry 12/10/16 12/10/16 12:09 13:49 Temperature 98.0 F Pulse Rate 72 Respiratory 14 16 Rate Blood Pressure 138/64 (mmHg) O2 Sat by Pulse 99 Oximetry Oxygen Devices in Use Now: None Appearance: 61 yo male sitting up on the side of the bed in NAD. A+Ox3. Eyes: No Scleral Icterus, PERRLA Ears/Nose/Mouth/Throat: NL Teeth, Lips, Gums, Mucous Membranes Moist Neck: NL Appearance and Movements; NL JVP Respiratory: Symmetrical Chest Expansion and Respiratory Effort, Clear to Auscultation Cardiovascular: NL Sounds; No Murmurs; No JVD, RRR, No Edema Abdominal: NL Sounds; No Tenderness; No Distention Extremities: No Edema, No Clubbing, Cyanosis Skin: No Rash or Ulcers, No Nodules or Sclerosis Neurological: Alert and Oriented x 3, NL Sensation, NL Gait, NL Muscle Strength and Tone Lines/Tubes/Other Access: Clean, Dry and Intact Peripheral IV Nutrition: Taking PO's Result Diagrams: 12/10/16 06:31 12/10/16 06:31 Additional Lab and Data: Lab Results 12/09/16 Range/Units 04:45 WBC 6.5 (3.5-10.8) 10^3/ul RBC 4.51 (4.0-5.4) 10^6/ul Hgb 12.8 L (14.0-18.0) g/dl Hct 38 L (42-52) % MCV 84 (80-94) fL MCH 28 (27-31) pg MCHC 34 (31-36) g/dl RDW 13 (10.5-15) % Plt Count 154 (150-450) 10^3/ul MPV 9 (7.4-10.4) um3 Neut % (Auto) 70.4 (38-83) % Lymph % (Auto) 15.6 L (25-47) % Giles % (Auto) 10.6 H (1-9) % Eos % (Auto) 2.2 (0-6) % Baso % (Auto) 1.2 (0-2) % Absolute Neuts (auto) 4.6 (1.5-7.7) 10^3/ul Absolute Lymphs (auto) 1.0 (1.0-4.8) 10^3/ul Absolute Monos (auto) 0.7 (0-0.8) 10^3/ul Absolute Eos (auto) 0.1 (0-0.6) 10^3/ul Absolute Basos (auto) 0.1 (0-0.2) 10^3/ul Absolute Nucleated RBC 0 10^3/ul Nucleated RBC % 0 Assess/Plan/Problems-Billing Assessment: Mr. Doty is a 61 yo male with a PMH of hx of stroke 13 years ago , and hx of multiple TIAs, s/p carotid endarectomy, DM2, hx of septic knee and HTN who presented to the emergency department on 12/09 with c/o syncope, Chest pressure/sob, diarrhea, dizziness and slurred speech and R facial droop, symptoms resolved upon arrival to [facility] [place]. - Patient Problems (1) TIA (transient ischemic attack) Comment: - Possible TIA vs hypovolemia, with dizziness, difficulty talking and possible right-sided facial droop episode. was found to have positive orthostasis suspect 2nd to hypovolemia from diarrhea/dehydration. - Appreciate neuro consult - agrees that this could be a possible TIA but in the setting of orthostasis and hyperglycemia this episode pore likely mimics a TIA. - Plan for MRI brain wo showing no acute cva - carotid US, - CTA head/neck - less than 50% stenosis at the origin of the left internal carotid artery, no dissection or branch occlusion noted. - Pt underwent a SINGH 02/2013 with no noted PFO. - TTE with bubble study - shows no PFO, normal TTE with EF 55-60% - Per Neuro continue ASA 325 mg po daily and statin (2) Syncope Comment: - suspect orthostasis (3) Chest pain Comment: - resolved, suspect stress related - Initial troponin 0.01, recheck 2nd trop - negative Nuclear stress test 12/2015 (4) Hyponatremia Comment: - suspect dehydration, resolved with IVFs. (5) Diabetes mellitus Comment: - FSBG ACHS - Continue Lantus 16 units Qday, Lispro SS and carb counting scale - add on HgA1C (6) Essential tremor Comment: - continue lamictal (7) Chronic diarrhea Comment: - followed by Dr. Farris - developed diarrhea 10 months ago, no dx. Plan for Barium study at the end of the month. - suspect the patient is dehydrated. - Fluid resusitation. - monitor stool output (8) DVT prophylaxis Comment: SQ heparin (9) Full code status Status and Disposition: inpatient for syncope, and concern for TIA. DC home today
--- NOTE | 2016-12-10 17:47 | ECHO ---
Patient: SANDRITA GUARDADO [facility] Rec#: [id number] : 1955 Date: 12/10/2016 Age: 61y Height: 170.18 cm / 67.0 in Weight: 80.29 kg / 177.0 lbs Sex: M BSA: 1.92 Room#: [facility] Admit Date#: 12/09/2016 Type: Inpatient Referring: Tiffanie Hope Reading: Jayy Carroll MD Skimmer Scoop Operator: Juan Monson RDCS CC: Gabbie Shell Transthoracic Echocardiogram Indication: TIA BP: 146/63 HR: 78 Rhythm: NSR Findings History: DM,ANGINA,CAD, HLD, HTN, carotid stenosissmoker. depression tia, seizure Technical Comments: The study quality is fair. Completed 1635 Left Ventricle: The left ventricular chamber size is normal. Mild concentric left ventricular hypertrophy is observed. Global left ventricular wall motion and contractility are within normal limits. There is normal left ventricular systolic function. The estimated ejection fraction is 55-60%. Abnormal left ventricular diastolic filling is observed, consistent with impaired relaxation. Left Atrium: The left atrial chamber size is normal. Right Ventricle: The right ventricular cavity size is normal. The right ventricular global systolic function is normal. Right Atrium: The right atrial cavity size is normal. Interatrial septum appears intact without evidence of shunting. The bubble study is negative. Aortic Valve: The aortic valve is trileaflet. There is no evidence of aortic regurgitation. There is no evidence of aortic stenosis. Mitral Valve: The mitral valve leaflets appear normal. There is no evidence of mitral regurgitation. There is no evidence of mitral stenosis. Tricuspid Valve: There is no evidence of tricuspid valve regurgitation. Pulmonic Valve: The pulmonic valve appears normal. There is no evidence of pulmonic regurgitation. There is no pulmonic stenosis. Pericardium: There is no pericardial effusion. Aorta: The ascending aorta is not well visualized. There is no dilatation of the aortic arch. There is no dilation of the aortic root. Pulmonary Artery: The main pulmonary artery is not well visualized. Venous: The inferior vena cava is dilated. There is a greater than 50% respiratory change in the inferior vena cava dimension. Contrast: Normal saline was used as contrast for the bubble study. image 64 Conclusions Global left ventricular wall motion and contractility are within normal limits. There is normal left ventricular systolic function. The estimated ejection fraction is 55-60%. Mild concentric left ventricular hypertrophy is observed. The right ventricular global systolic function is normal. Interatrial septum appears intact without evidence of shunting. The bubble study is negative. There is no evidence of aortic regurgitation. There is no evidence of aortic stenosis. There is no evidence of mitral regurgitation. There is no evidence of tricuspid valve regurgitation. There is no pericardial effusion. Measurements Name Value Normal Range RVIDd (AP) 2D 1.8 cm (0.9 - 2.6) RVDdMajor (2D) 2.6 cm (2.2 - 4.4) RAd ISD 4CH 3.7 cm (3.4 - 4.9) RA (A4C)W 3.1 cm (2.9 - 4.6) IVSd (2D) 1.2 cm (0.6 - 1) LVPWd (2D) 1.1 cm (0.6 - 1) LVIDd (2D) 4 cm (3.6 - 5.4) LVIDs (2D) 2.9 cm - LV FS (2D) 26 % (25 - 45) Aortic Annulus 2.1 cm (1.4 - 2.6) Ao root diameter (2D) 2.3 cm (2.1 - 3.5) Aortic arch 2.1 cm (1.8 - 3.4) LA dimension (AP) 2D 3.4 cm (2.3 - 3.8) LAd ISD 4CH 4.5 cm (2.9 - 5.3) LA ISD 4CH W 3.9 cm (2.5 - 4.5) Name Value Normal Range LA ESV SP 4CH (A/L) 41 ml - LA ESV SP 2CH (A/L) 26 ml - LA ESV BP (A/L) 34 ml - LA ESV BP (A/L) index 17.89 ml/m2 - LA ESV SP 4CH (MOD) 37 ml - LA ESV SP 2CH (MOD) 26 ml - Name Value Normal Range MV E-wave Vmax 0.67 m/sec - MV deceleration time 133 msec - MV A-wave Vmax 0.76 m/sec - MV E:A ratio 0.88 ratio - LV septal e' Vmax 0.06 m/sec - LV lateral e' Vmax 0.06 m/sec - LV E:e' septal ratio 11.1 ratio - LV E:e' lateral ratio 11.1 ratio - Name Value Normal Range LVOT diameter 2 cm - LVOT Vmax 0.8 m/sec - LVOT mean gradient 1.51 mmHg - Name Value Normal Range IVC diameter 2.1 cm - Name Value Normal Range PV Vmax 0.9 m/sec -
--- NOTE | 2016-12-11 07:33 | PN ---
NEUROLOGICAL FOLLOWUP: DATE OF FOLLOWUP: 12/10/2016. PATIENT OF: Tiffanie Hope NP HISTORY: The patient was seen by Dr. Major yesterday. The patient notes he feels back to normal other than being tired. He had some mild possible right facial droop yesterday and had some difficulty with speech. Dr. Major was not sure whether this was a TIA or TIA mimic from his hyperglycemia. He has had no further symptoms. MEDICATIONS: He is now on aspirin in addition to his home medicines as listed yesterday includin. Metformin 1000 mg b.i.d. 2. Lamotrigine 1200 b.i.d. for depression. 3. Glipizide 5 mg daily. 4. Sertraline 50 daily/200 b.i.d. 5. Pravachol 20 mg daily. 6. Zofran 4 mg q.8 hours. 7. Metoclopramide 10 mg t.i.d. 8. Lisinopril 20 mg daily. 9. Insulin Lantus. 10. Bupropion. PHYSICAL EXAMINATION: Temperature 98, pulse 72, respirations 16, blood pressure 138/64. He is alert and oriented with normal speech and comprehension. Cranial nerves II through XII intact. Motor exam revealed normal tone and strength. Negative pronator drift. Sensation intact to light touch. Reflexes 1 and equal. Chest: Clear. Cardiovascular: Regular rate and rhythm. Abdomen: Soft, positive bowel sounds. DIAGNOSTIC STUDIES/LAB DATA: His echo was pending. His MRI scan was reviewed and showed some small vessel ischemic disease, but no acute stroke. His CTA as reported by Dr. Major yesterday showed some left carotid stenosis of less than 50%. His LDL was 85. IMPRESSION AND PLAN: Mr. Doty is currently asymptomatic and may have had a transient ischemic attack or transient ischemic attack mimic yesterday. Has no additional recommendations other than him being on an antiplatelet medication. He should be resumed on a statin. It would be reasonable to get a followup carotid ultrasound sometime in the next year to track his carotid stenosis. No other recommendation at this time. Thank you for sharing his case. [id number]/[facility] #: [id number] LETY
--- NOTE | 2016-12-11 12:22 | DS ---
DISCHARGE SUMMARY: DATE OF ADMISSION: 12/09/16 DATE OF DISCHARGE: 12/10/16 PROVIDER: Aissatou Castellanos NP ATTENDING PHYSICIAN: Dr. Shell* (report dictated by Aissatou Castellanos NP) PRIMARY CARE PROVIDER: Dr. Gabbie Shell. PRIMARY DIAGNOSES: 1. Possible transient ischemic attack versus orthostasis secondary to dehydration. 2. Uncontrolled diabetes. HISTORY OF PRESENT ILLNESS AND HOSPITAL COURSE: Please see history and physical by Dr. Junior for full admission details. In summary, this is a 61-year-old male with a past medical history of TIA and history of stroke approximately 13 years ago. Status post carotid endarterectomy, insulin- dependent type 2 diabetes, history of septic knee and hypertension who presented to the emergency department on 12/09/16 with a complaint of syncope, chest discomfort, shortness of breath, dizziness, slurred speech, and possible right fascial droop. The patient reports that he had gotten up in the middle of the night, went to the bathroom, when he got off the toilet he suddenly developed some spinning dizziness and the next thing he knew he was on his hands and knees on the opposite side of the room. He reports that he did hit his head and had a lump on the back of his head. The patient's helped the patient back to the bed. Later in the evening the patient got up to the bathroom again, reports he was having diarrhea and his noted that he was staring out into space, not responding to her talking to him and had some garbled speech and possible right-sided fascial droop. The patient then came to the emergency department for further evaluation. In the emergency department , the patient reports that all of his symptoms resolved. He underwent a brain CT which showed "chronic ischemic white matter change with no intracranial mass or hemorrhage". The patient was admitted to the hospitalist service on telemetry. He was seen in consultation by Dr. Major who recommended the patient should undergo a stroke workup and which he did with a brain MRI, head and neck CTA, and transthoracic echocardiogram with bubble study. The patient's workup was completely negative. Dr. Major suspects that this could possibly be a TIA, but also notes that the patient was found to have positive orthostatic vital signs on admission and also was hyperglycemic with blood sugar in the 400s. The patient has been well throughout his hospitalization. Symptoms completely resolved. On examination of the patient yesterday, the patient was noted to have very dry mucous membranes. His orthostatic vital signs were checked and was noted to be significant orthostasis. He was given IV fluids and the patient reports he feels much better. The patient reports that he is followed for chronic diarrhea by Dr. Farris and is supposed to undergo a barium fluoroscopy later this month. He reports over the past 3 months his diarrhea has become chronic having up to 6 watery stools a day. Most likely this has caused the patient to be dehydrated. His sodium was noted to be 128 on admission which resolved after he was given fluid. In regards, to the patient's uncontrolled type 2 diabetes the patient was seen in consultation by [facility] elementary educator who has referred the patient for followup in their office. The patient's blood sugars were noted to be around the 200s; however, we did have him off most of his home medications and had him on a sliding scale. The patient is going to return back on his prior medications and is going to keep a blood sugar log, as well as a food diary. In regards to the patient's syncope, suspected secondary to orthostasis. The patient did complain of chest pressure after one of his episodes in the bathroom , but suspect this is stress related as his troponins were negative at 0.01. He had no noted EKG changes. DISCHARGE MEDICATIONS: 1. Insulin Lispro per the patient's instructions with his insulin pump. 2. Wellbutrin XL 300 mg p.o. daily. 3. Sertraline HCL 50 mg p.o. daily. 4. Metoclopramide 10 mg p.o. t.i.d. p.r.n. 5. Bentyl 10 mg p.o. q.6 hours. 6. Pravastatin sodium 20 mg p.o. daily. 7. Zoloft 200 mg p.o. b.i.d. 8. Ativan 1 mg p.o. t.i.d. 9. Zofran 4 mg p.o. q.8 hours p.r.n. 10. Lisinopril 20 mg p.o. daily. 11. Metformin 1000 mg p.o. b.i.d. 12. Lamictal 20 mg p.o. b.i.d. 13. Glipizide XL 500 mg p.o. daily. 14. Aspirin 325 mg p.o. daily. DISCHARGE PLAN: 1. The patient is stable for discharge home. The patient has been ambulating around the unit without any difficulty and without any dizziness. 2. Followup with Dr. Gabbie Shell within 3 to 5 days. 3. Neurology recommended the patient followup with a carotid ultrasound in 1 year. 4. Recommendation from neurology was to continue on aspirin 325 mg daily and his statin. 5. Referral to [facility] for diabetes education and management. TIME SPENT: Approximately 60 minutes was spent on this discharge. AISSATOU CASTELLANOS NP CC: Dr. Gabbie Shell* [id number]/[facility] #: [id number] MTDD
[2016-12-11 13:42] LABS: Dil Russell Viper Ven Confirm 1.2 ratio (0.0 - 1.1); LAC DRVVT Mix Ratio 1.2 ratio (0.0 - 1.1); LUP Hexthrombin Time (Bovine) 18 sec (15 - 23); Protein C Activity 152 % (70 - 150)
[2016-12-11 17:02] LABS: LAC APTT 31 sec (26 - 36); LAC INR 0.9; Lac DRVVT Screen Ratio 1.2 ratio (0.0 - 1.1); Prothrombin Time(LAC) 9.9 sec
[2016-12-13 11:55] LABS: Prothrombin 20210 Mutation Negative (Negative)
[2017-01-03 11:50] LABS: Thrombin Time 18 sec (15 - 23)
== END 2016-12-10 18:55 | disposition home or self-care (01) | DRG 312 ==
LOC: ED 04:18 → MEDTELE 05:59
PROVIDERS: ADMIT Hospitalist; ATTEND Internal Medicine
DX: I95.1 Orthostatic hypotension (principal); E11.65 Type 2 diabetes mellitus with hyperglycemia; E87.1 Hypo-osmolality and hyponatremia; G45.9 Transient cerebral ischemic attack, unspecified; I25.10 Atherosclerotic heart disease of native coronary artery without angina pectoris; E78.00 Pure hypercholesterolemia, unspecified; F17.210 Nicotine dependence, cigarettes, uncomplicated; Z98.1 Arthrodesis status; Z86.73 Personal history of transient ischemic attack (TIA), and cerebral infarction without residual deficits; F32.9 Major depressive disorder, single episode, unspecified; R29.700 NIHSS score 0; Z82.49 Family history of ischemic heart disease and other diseases of the circulatory system; Z83.3 Family history of diabetes mellitus; E66.9 Obesity, unspecified; R07.89 Other chest pain; R25.1 Tremor, unspecified; K52.9 Noninfective gastroenteritis and colitis, unspecified; Z68.27 Body mass index [BMI] 27.0-27.9, adult; Z80.9 Family history of malignant neoplasm, unspecified; E86.0 Dehydration; Z79.82 Long term (current) use of aspirin; Z79.4 Long term (current) use of insulin
CPT/HCPCS: 36415; 70450; 70496; 70498; 70551; 71010; 80048; 80053; 80061; 81240; 82550; 82553; 83036; 84484; 85025; 85300; 85303; 85306; 85307; 85390; 85610; 85613; 85670; 85730; 93005; 93306; 99221; A9270-GY; J1644; Q9967

== ENCOUNTER 2018-04-14 19:57 | Inpatient (IN) | payer MEDICARE, OTHER ==
[2018-04-14 21:01] LABS: ABS Basophils 0.1 10^3/ul (0-0.2); ABS Eosinophils 0.1 10^3/ul (0-0.6); ABS Lymphocytes 0.6 10^3/ul (1.0-4.8); ABS Monocytes 0.7 10^3/ul (0-0.8); ABS Neutrophils 5.6 10^3/ul (1.5-7.7); ABS Nucleated RBC 0 10^3/ul; Eosinophil % 1.6 % (0-6); Hematocrit 43 % (42-52); Hemoglobin 14.8 g/dl (14.0-18.0); Lymphocyte % 8.5 % (25-47); Mean Corpuscular HGB Conc 34 g/dl (31-36); Mean Corpuscular Hemoglobin 31 pg (27-31); Mean Corpuscular Volume 90 fL (80-94); Mean Platelet Volume 7.3 um3 (7.4-10.4); Nucleated Red Blood Cells % 0.1; Platelet Count 183 10^3/ul (150-450); Red Blood Count 4.78 10^6/ul (4.00-5.40); Red Cell Distribution Width 14 % (10.5-15); White Blood Count 7.2 10^3/ul (3.5-10.8)
[2018-04-14 21:20] LABS: EGFR Non-African American 69.6 (>60)
--- NOTE | 2018-04-14 22:19 | ED ---
Lower Extremity - HPI Summary HPI Summary: Patient sent from urgent care for further evaluation of redness and discoloration to left foot with possible necrosis of left great toe, possible ischemia to second third and fourth toes of left foot. Patient states area of darkened skin appeared until about 4 days ago. Denies fever, pain, purulent discharge, trauma, N/V, abdominal pain, cp, sob, change in urine oir BM.. History of DM, CAD, HTN, HDL, TIA - History of Current Complaint Chief Complaint: EDExtremityLower Stated Complaint: LT FT TOE INJURY Time Seen by Provider: 04/14/18 20:28 Hx Obtained From: Patient Mechanism Of Injury: Unknown Severity Currently: None Pain Intensity: 0 Pain Scale Used: 0-10 Numeric Associated Signs And Symptoms: Positive: Swelling, Redness - Risk Factors Gout Risk Factors: Age Over 40, Male, Diabetes - Allergies/Home Medications Allergies/Adverse Reactions: Allergies Allergy/AdvReac Type Severity Reaction Status Date / Time No Known Allergies Allergy Verified 04/14/18 20:05 PMH/Surg Hx/FS Hx/Imm Hx Endocrine/Hematology History: Reports: Hx Diabetes Cardiovascular History: Reports: Hx Angina, Hx Coronary Artery Disease, Hx Hypercholesterolemia, Hx Hypertension - pt denies, Other Cardiovascular Problems /Disorders - carotid stenosis, intermediate coronary syndrome Denies: Hx Pacemaker/ICD Respiratory History: Reports: Other Respiratory Problems/Disorders - smoker Denies: Hx Asthma, Hx Chronic Obstructive Pulmonary Disease (COPD) History: Denies: Hx Dialysis, Hx Renal Disease Musculoskeletal History: Reports: Hx Back Problems - spinal fusion, laminerctomy decompression, Hx Orthopedic Injury - septic arthritis left knee Sensory History: Reports: Hx Contacts or Glasses Denies: Hx Hearing Aid Opthamlomology History: Reports: Hx Contacts or Glasses Neurological History: Reports: Hx Seizures, Hx Spinal Cord Injury, Hx Transient Ischemic Attacks (TIA), Other Neuro Impairments/Disorders - essential tremor disorder Denies: Hx Dementia Psychiatric History: Reports: Hx Depression - off & on past 25 yrs, Hx Inpatient Treatment - in [facility], Hx Suicide Attempt - SI/ATTEMPT 05/2010 Denies: Hx Panic Disorder, Hx of Violent Episodes Against Others - Surgical History Surgery Procedure, Year, and Place: SPINAL FUSION, ENDARTECTOMY 2012, COMPRESSION FX, LAMINECTOMY, KNEE SURGERY Hx Anesthesia Reactions: No - Immunization History Date of Tetanus Vaccine: Shot "within past ten years" Date of Influenza Vaccine: unk Infectious Disease History: No Infectious Disease History: Denies: Traveled Outside the [place] in Last 30 Days - Family History Known Family History: Positive: Diabetes - Social History Alcohol Use: None Hx Substance Use: No Substance Use Type: Reports: None Hx Tobacco Use: Yes Smoking Status (MU): Heavy Every Day Tobacco Smoker Type: Cigarettes Amount Used/How Often: 1 PPD Length of Time of Smoking/Using Tobacco: 40 years Have You Smoked in the Last Year: Yes Review of Systems Constitutional: Negative Eyes: Negative ENT: Negative Cardiovascular: Negative Respiratory: Negative Gastrointestinal: Negative Genitourinary: Negative Musculoskeletal: Negative Skin: Other Neurological: Negative Psychological: Normal All Other Systems Reviewed And Are Negative: Yes Physical Exam - Summary Physical Exam Summary: Likely necrosis medial aspect of left great toe. Signs of ischemia on toe tenderness for of left foot. Redness to left foot and ankle versus right foot. Nontender. Pulses and sensation intact. No purulent discharge or foul odor noted. Triage Information Reviewed: Yes Vital Signs On Initial Exam: Initial Vitals Temp Pulse Resp BP Pulse Ox 97.7 F 95 16 150/81 96 04/14/18 20:05 04/14/18 20:05 04/14/18 20:05 04/14/18 20:05 04/14/18 20:05 Vital Signs Reviewed: Yes Appearance: Positive: Well-Appearing Skin: Positive: Warm Head/Face: Positive: Normal Head/Face Inspection Eyes: Positive: Normal Neck: Positive: Supple Respiratory/Lung Sounds: Positive: Clear to Auscultation Cardiovascular: Positive: Normal Abdomen Description: Positive: Nontender Musculoskeletal: Positive: Normal Neurological: Positive: Normal Psychiatric: Positive: Normal AVPU Assessment: Alert - Brittney Coma Scale Best Eye Response: 4 - Spontaneous Best Motor Response: 6 - Obeys Commands Best Verbal Response: 5 - Oriented Coma Scale Total: 15 Diagnostics - Vital Signs Vital Signs Temp Pulse Resp BP Pulse Ox 04/14/18 21:14 98.1 F 86 18 137/69 100 04/14/18 20:05 97.7 F 95 16 150/81 96 - Laboratory Lab Results: Lab Results 04/14/18 04/14/18 04/14/18 Range/Units 20:49 20:49 20:49 WBC 7.2 (3.5-10.8) 10^3/ul RBC 4.78 (4.00-5.40) 10^6/ul Hgb 14.8 (14.0-18.0) g/dl Hct 43 (42-52) % MCV 90 (80-94) fL MCH 31 (27-31) pg MCHC 34 (31-36) g/dl RDW 14 (10.5-15) % Plt Count 183 (150-450) 10^3/ul MPV 7.3 L (7.4-10.4) um3 Neut % (Auto) 78.4 (38-83) % Lymph % (Auto) 8.5 L (25-47) % Bowman % (Auto) 10.2 H (0-7) % Eos % (Auto) 1.6 (0-6) % Baso % (Auto) 1.3 (0-2) % Absolute Neuts (auto) 5.6 (1.5-7.7) 10^3/ul Absolute Lymphs (auto) 0.6 L (1.0-4.8) 10^3/ul Absolute Monos (auto) 0.7 (0-0.8) 10^3/ul Absolute Eos (auto) 0.1 (0-0.6) 10^3/ul Absolute Basos (auto) 0.1 (0-0.2) 10^3/ul Absolute Nucleated RBC 0 10^3/ul Nucleated RBC % 0.1 Sodium 134 L (135-145) mmol/L Potassium 4.0 (3.5-5.0) mmol/L Chloride 96 L (101-111) mmol/L Carbon Dioxide 29 (22-32) mmol/L Anion Gap 9 (2-11) mmol/L BUN 15 (6-24) mg/dL Creatinine 1.07 (0.67-1.17) mg/dL Est GFR ( Amer) 84.2 (>60) Est GFR (Non-Af Amer) 69.6 (>60) BUN/Creatinine Ratio 14.0 (8-20) Glucose 342 H (70-100) mg/dL Lactic Acid 2.2 H* (0.5-2.0) mmol/L Calcium 9.7 (8.6-10.3) mg/dL Total Bilirubin 0.50 (0.2-1.0) mg/dL AST 12 L (13-39) U/L ALT 11 (7-52) U/L Alkaline Phosphatase 66 (34-104) U/L C-Reactive Protein 56.04 H (<8.01) mg/L Total Protein 7.0 (6.4-8.9) g/dL Albumin 3.6 (3.2-5.2) g/dL Globulin 3.4 (2-4) g/dL Albumin/Globulin Ratio 1.1 (1-3) Result Diagrams: 04/14/18 20:49 04/14/18 20:49 Lab Statement: Any lab studies that have been ordered have been reviewed, and results considered in the medical decision making process. Lower Extremity Course/Dx - Course Course Of Treatment: Patient sent from urgent care for further evaluation of redness and discoloration to left foot with possible necrosis of left great toe , possible ischemia to second third and fourth toes of left foot. Patient states area of darkened skin appeared until about 4 days ago. Denies fever, pain, purulent discharge, trauma, N/V, abdominal pain, cp, sob, change in urine oir BM.. History of DM, CAD, HTN, HDL, TIA. PE:" Likely necrosis medial aspect of left great toe. Signs of ischemia on toe tenderness for of left foot. Redness to left foot and ankle versus right foot. Nontender. Pulses and sensation intact. No purulent discharge or foul odor noted. Vital signs within normal limits and stable. Labs unremarkable other than lactic of 2.2. Imaging negative for osteo. - Diagnoses Provider Diagnoses: Diabetic infection of left foot Discharge - Sign-Out/Discharge Documenting (check all that apply): Patient Departure - Discharge Plan Condition: Stable Disposition: ADMITTED TO [facility] Referrals: Gabbie Shell MD [Primary Care Provider] - - Billing Disposition and Condition Condition: STABLE Disposition: Admitted to [facility]
[2018-04-14] MEDS ORDERED: Vancomycin(*) 1,000 MG in NS 0.9% 250 ML* 250 ML IVPB ONE (22:21)
[2018-04-15] MEDS ORDERED: Senna TAB PO PRN (00:32)
[2018-04-15] MEDS ORDERED: Ondansetron INJ* 2 MG/ML VIAL IV PRN (00:32)
[2018-04-15] MEDS ORDERED: Docusate CAP* 100 MG PO PRN (00:32)
[2018-04-15] MEDS ORDERED: Acetaminophen TAB* 325 MG PO PRN (00:32)
[2018-04-15] MEDS ORDERED: Dextrose 50% Syringe 50 ML* 25 GM/50 ML SYRINGE IV PUSH PRN ×2 (00:34→08:48)
[2018-04-15] MEDS ORDERED: Cefepime 2 GM in Dextrose(*) 2 GM/50 ML BAG IV ONE (00:59)
[2018-04-15] MEDS ORDERED: Insulin GLARGINE(*) 1 UNITS UNIT SUBCUT SCH (01:00)
[2018-04-15] MEDS ORDERED: Vancomycin(*) 0 MG in NS 0.9% 250 ML* 250 ML IVPB SCH (01:00)
[2018-04-15] MEDS: Cefepime 2 GM in Dextrose(*) 2 GM/50 ML BAG IV SCH ×2 (01:10→12:52)
[2018-04-15] MEDS ORDERED: Vancomycin per Pharmacy* NOTE FOLLOW UP PRN (01:27)
[2018-04-15] MEDS ORDERED: Vancomycin(*) 500 MG in NS 0.9% 250 ML* 250 ML IVPB ONE (01:30)
[2018-04-15] MEDS: metroNIDAZOLE IV 500 MG/100ML* 500 MG/100 ML BAG IVPB SCH ×2 (01:50→14:06)
--- NOTE | 2018-04-15 04:23 | HP ---
HISTORY AND PHYSICAL: DATE OF ADMISSION: 04/15/18 TIME OF EVALUATION: 0030. PRIMARY CARE PHYSICIAN: Doroteo Willis MD CHIEF COMPLAINT: Right first toe wound. HISTORY OF PRESENT ILLNESS: This is a 62-year-old male with past medical history of diabetes and tobacco use, presents to the emergency room from urgent care with a right great toe wound. The patient states he had a pedicure few weeks ago, but had no complications or wounds after that, and then 3 to 4 days ago, he noticed a wound on his right great toe and over the past few days, the redness, swelling and pain have gotten worse. He went to urgent care and they sent him here to the emergency room. The patient states in the past he had a left heel ulcer. He had some subjective fevers and chills at home. He denies any neuropathy or complications from his diabetes, however, 2 weeks ago, his hemoglobin A1c was 8.1. He also complains of left calf pain when ambulating. No chest pain or shortness of breath. No nausea, vomiting, diarrhea, abdominal pain, or urinary symptoms. Otherwise, review of systems is negative. In the emergency room, the patient had labs, imaging. He was given vancomycin and referred to the hospitalist service for further evaluation. PAST MEDICAL HISTORY: 1. Diabetes. 2. History of recurrent TIAs. 3. History of coronary artery disease, status post right CVA. 4. Essential tremor. 5. Depression. 6. History of septic knee. 7. Hypertension. 8. History of mild traumatic brain injury. MEDICATIONS: 1. CBD oil one cap p.o. q. 6 hours as needed for his essential tremor. 2. Lamictal 200 mg p.o. daily. 3. Zoloft 100 mg daily. 4. Metformin 1000 mg p.o. b.i.d. 5. Glucotrol 10 mg daily. 6. Humalog as directed, a.c. ALLERGIES: No known drug allergies. FAMILY HISTORY: Reviewed and noncontributory. SOCIAL HISTORY: The patient lives at home with his . He is still smoking one pack a day for the past 50 years. No alcohol or illicit drug use. 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 His healthcare proxy is , Maryam. Code status, full code. REVIEW OF SYSTEMS: A 14-point review of systems as mentioned in the HPI. Otherwise, negative. PHYSICAL EXAMINATION GENERAL: In no acute distress, resting comfortably. VITAL SIGNS: Temp 98.1, pulse rate 84, respiratory rate 18, oxygen saturation 100% on room air, and blood pressure 166/94. HEENT: Head: Normocephalic. Pupils are equal, reactive, anicteric. Oropharynx: Mucous membranes are moist. NECK: Supple. No lymphadenopathy. RESPIRATORY: Diminished breath sounds. No wheezing, rhonchi, or rales. CARDIAC: Regular rate and rhythm. Soft systolic murmur heard throughout. ABDOMEN: Soft, nontender, nondistended. EXTREMITIES: His right foot, more predominantly on his great toe has surrounding erythema and ecchymosis with a necrotic wound on the lateral aspect of his right great toe. He has pulses, DP and posterior tibialis on Doppler bilaterally. He has good cap refill. Extremities are warm. NEUROLOGIC: Alert and oriented x3. No gross focal neurologic deficits. LABORATORY DATA: White count 7.2, hemoglobin 14.8, hematocrit 43, platelets 193. Sodium 134, potassium 4, chloride 96, bicarb 29. BUN 15 and creatinine 1.07. Glucose 342. Lactic 2.2. CRP is 56. ASSESSMENT AND PLAN: This is a 62-year-old male with past medical history of diabetes and tobacco use, who presents to the emergency room from urgent care with great toe necrotic ulcer. 1. Right great toe necrotic ulcer with surrounding cellulitis. Assessment: The patient does not meet criteria for sepsis. Blood cultures were drawn. He was given vancomycin. I suspect he has underlying peripheral vascular disease with his history and cannot rule out a DVT as well. There is also concern for possible osteomyelitis; however, he states the swelling has been going on for the past 3 to 4 days. Plan: We will continue the vancomycin , add cefepime and Flagyl. Check his hemoglobin A1c. We will order ankle brachial indices to evaluate for peripheral vascular disease. He will likely be a candidate for revascularization. Consider follow with Infectious Disease and further imaging of his toe per ID recommendations and we will order a Doppler ultrasound to rule out DVT. 2. Chronic medical problems, diabetes. We will hold on the oral agents, and place him on lispro sliding scale, and Lantus at 10. 3. Depression. Continue his Lamictal and sertraline. 4. FEN: Place the patient on diabetic diet. 5. DVT prophylaxis: The patient scores high risk. We will place him on heparin subcu t.i.d. 6. Code status: Full code. PATIENT TIME: Greater than 40 minutes was spent doing history and physical, more than half the time was spent in direct patient contact. [id number]/[facility] #: [id number] MTDD
[2018-04-15] MEDS: Heparin VIAL(*) 5000 UNITS/ML VIAL (FIVE THOUSAND) SUBCUT SCH ×3 (05:31→21:26)
[2018-04-15] MEDS ORDERED: Insulin LISPRO* 1 UNITS UNIT SUBCUT SCH (07:30)
[2018-04-15] MEDS ORDERED: Vancomycin(*) 1,000 MG in NS 0.9% 250 ML* 250 ML IVPB SCH (07:30)
--- NOTE | 2018-04-15 08:05 | RAD ---
INDICATION: Erythema of the left great toe COMPARISON: None. TECHNIQUE: 3 views of the left foot were obtained. FINDINGS: The adequately corticated bones are properly aligned. Joint spaces appear maintained. No fracture, dislocation or focal bony abnormality is seen. There is calcified atherosclerosis overlying the distal LEGAL TECHNICIAN and plantar arteries posteriorly and BRYN and dorsalis pedis anteriorly. IMPRESSION: 1. NO RADIOGRAPHIC EVIDENCE OF OSTEOMYELITIS. 2. THERE IS COARSE CALCIFICATION OF THE VISUALIZED INFRAPOPLITEAL ARTERIES. PLEASE CORRELATE TO SIGNS AND SYMPTOMS OF ARTERIAL INSUFFICIENCY IN ADEQUATE ARTERIAL FLOW CAN EXACERBATE LOWER EXTREMITY WOUNDS (I.E. "CRITICAL LIMB ISCHEMIA"). NONINVASIVE VASCULAR WORKUP COULD INCLUDE JOSE AND LEFT LOWER EXTREMITY ARTERIAL DUPLEX SONOGRAPHY.
[2018-04-15] MEDS: lamoTRIgine TAB(*) 100 MG PO SCH (08:37)
[2018-04-15] MEDS: Sertraline* 100 MG TAB PO SCH (08:38)
--- NOTE | 2018-04-15 12:06 | RAD ---
INDICATION: Necrotic left great toe COMPARISON: None. TECHNIQUE: Ankle-brachial indices and Doppler tracings were obtained of the lower extremities bilaterally. Volume pulse recordings were acquired at the bilateral ankles. REPORT: Ankle-brachial indices: Right: Value (SBP) Index Brachial: 171 Posterior tibialis: 151 0.87 Dorsalis pedis: 145 0.83 Left: Value (SBP) Index Brachial: 174 Posterior tibialis: 121 0.70 Dorsalis pedis: 107 0.61 Doppler waveforms (acquired at rest): In the interrogated lower extremity arteries, Doppler waveforms are biphasic in all distributions with reduced amplitude recorded in the left relative to the right. Volume pulse recordings (acquired at rest): Volume pulse recordings, measured at the bilateral ankles, are symmetric. IMPRESSION: ABIs are consistent with arterial insufficiency/claudication worse at the left than the right with derangement waveforms bilaterally and reduced amplitude recorded on the left.
--- NOTE | 2018-04-15 12:21 | RAD ---
INDICATION: Necrotic left great toe COMPARISON: Same day JOSE that demonstrates left worse than right claudication values TECHNIQUE: Escobar scale, color Doppler, and spectral analysis utilized to image the left lower extremity arteries. Flow velocities were determined at each visualized artery. REPORT: The left common femoral artery, proximal femoral profundus, superficial femoral artery, popliteal artery and infrapopliteal arteries exhibit patency. At the distal superficial femoral artery there are increased velocities measuring 155 cm/s which is more than 2 standard deviations above the average velocity. More proximally the flow velocity is measured at 83 cm/s yielding an approximate velocity ratio between the arteries of 221 which potentially corresponds to 50-75% degree stenosis. At other levels the arterial flow velocities and ratios of the femoral-popliteal arteries are within normal limits. There is no abrupt transition and velocities to indicate significant stenosis. There are no pathologically dilated arteries visualized. IMPRESSION: Elevated flow velocities at the distal left superficial femoral artery when compared to the more proximal segment of the artery correspond to at least 50% degree stenosis. Mean Arterial diameter and Peak Systolic Flow Velocities Artery Diameter SD (cm) Velocity SD (cm/sec) Ext. Iliac 0.79 +/- 0.13 119.3 +/- 21.7 Common Femoral 0.82 +/- 0.14 114.1 +/- 24.9 Superficial Femoral (Prox.) 0.60 +/- 0.12 90.8 +/- 13.6 Superficial Femoral (Dist.) 0.54 +/- 0.11 93.6 +/- 14.1 Popliteal 0.52 +/- 0.11 68.8 +/- 13.5 Adapted from [employer] Introduction to Vascular Sonography 5th ed. Diagnostic Criteria Femoral Popliteal Segment Stenosis Peak Velocity Velocity Ratio Normal < 150 cm/sec < 1.5:1 30%-49% 150 -200 cm/sec 1.5:1 ? 2:1 50%-75% 200 ? 400 cm/sec 2:1 ? 4::1 Occlusion No color saturation Adapted from Edwar DV, Teo MANE, et al.
[2018-04-15] MEDS: Insulin LISPRO* 1 UNITS UNIT SUBCUT SCH ×3 (12:50→21:25)
[2018-04-15] MEDS: Insulin GLARGINE(*) 1 UNITS UNIT SUBCUT SCH (12:51)
--- NOTE | 2018-04-15 15:31 | PN ---
Subjective Date of Service: 04/15/18 Interval History: Patient seen and examined. Patient complaints of left calf pain with ambulation , and some pain in the left foot. Denies SOB, no chest pain, no fevers or chills , sign other at bedside. No further complaints. Objective Active Medications: Acetaminophen (Tylenol Tab*) 650 mg PO Q4H PRN PRN Reason: FEVER/PAIN Al Hydrox/Mg Hydrox/Simethicone (Maalox Plus*) 30 ml PO Q6H PRN PRN Reason: INDIGESTION Dextrose (D50w Syringe 50 Ml*) 12.5 gm IV PUSH .FOR FS < 60 - SS PRN PRN Reason: FS < 60 Docusate Sodium (Colace Cap*) 100 mg PO BID PRN PRN Reason: CONSTIPATION Heparin Sodium (Porcine) (Heparin Vial(*)) 5,000 units SUBCUT Q8HR [facility] Last Admin: 04/15/18 13:10 Dose: 5,000 units Cefepime HCl (Maxipime 2 Gm In Dextrose Duplex (*)) 2 gm in 50 mls @ 100 mls/ hr IV Q12H [facility] Last Admin: 04/15/18 12:52 Dose: 100 mls/hr Metronidazole/Sodium Chloride (Flagyl 500 Mg Ivpb*) 500 mg in 100 mls @ 100 mls /hr IVPB Q12H [facility] Last Admin: 04/15/18 14:06 Dose: 100 mls/hr Insulin Glargine (Lantus(*)) 20 units SUBCUT Q24H [facility] Last Admin: 04/15/18 12:51 Dose: 20 units Insulin Human Lispro (Humalog*) 0 units SUBCUT ACHS [facility]; Protocol Last Admin: 04/15/18 12:50 Dose: 4 units Lamotrigine (Lamictal Tab(*)) 200 mg PO DAILY [facility] Last Admin: 04/15/18 08:37 Dose: 200 mg Ondansetron HCl (Zofran Inj*) 4 mg IV Q4H PRN PRN Reason: NAUSEA/VOMITING Pharmacy Profile Note (Vancomycin Trough Check) 1 note FOLLOW UP 729 ONE Stop: 04/16/18 07:31 Senna (Senokot Tab*) 1 tab PO BID PRN PRN Reason: CONSTIPATION Sertraline HCl (Zoloft*) 100 mg PO DAILY [facility] Last Admin: 04/15/18 08:38 Dose: 100 mg Vital Signs - 8 hr 04/15/18 04/15/18 07:40 08:00 Temperature 97.9 F Pulse Rate 80 Respiratory 17 16 Rate Blood Pressure 155/85 (mmHg) O2 Sat by Pulse 98 Oximetry Oxygen Devices in Use Now: None Appearance: Alert, NAD Eyes: No Scleral Icterus, PERRLA Ears/Nose/Mouth/Throat: NL Teeth, Lips, Gums, Mucous Membranes Moist Neck: NL Appearance and Movements; NL JVP, Trachea Midline Respiratory: Symmetrical Chest Expansion and Respiratory Effort, Clear to Auscultation Cardiovascular: NL Sounds; No Murmurs; No JVD, - - edema and erythema to the dorsal aspect of the left foot Abdominal: NL Sounds; No Tenderness; No Distention, No Hepatosplenomegaly Extremities: - - unable to palpate pulses on left DP and PT, doppler pulses auscultated Skin: - - necrotic left great toe with dusky appearance on the plantar aspect of the left toes, healed wound to right foot also on the plantar aspect Neurological: Alert and Oriented x 3 Nutrition: Taking PO's Result Diagrams: 04/14/18 20:49 04/14/18 20:49 Additional Lab and Data: Lab Results 04/14/18 04/14/18 04/14/18 Range/Units 20:49 20:49 20:49 WBC 7.2 (3.5-10.8) 10^3/ul RBC 4.78 (4.00-5.40) 10^6/ul Hgb 14.8 (14.0-18.0) g/dl Hct 43 (42-52) % MCV 90 (80-94) fL MCH 31 (27-31) pg MCHC 34 (31-36) g/dl RDW 14 (10.5-15) % Plt Count 183 (150-450) 10^3/ul MPV 7.3 L (7.4-10.4) um3 Neut % (Auto) 78.4 (38-83) % Lymph % (Auto) 8.5 L (25-47) % [place] % (Auto) 10.2 H (0-7) % Eos % (Auto) 1.6 (0-6) % Baso % (Auto) 1.3 (0-2) % Absolute Neuts (auto) 5.6 (1.5-7.7) 10^3/ul Absolute Lymphs (auto) 0.6 L (1.0-4.8) 10^3/ul Absolute Monos (auto) 0.7 (0-0.8) 10^3/ul Absolute Eos (auto) 0.1 (0-0.6) 10^3/ul Absolute Basos (auto) 0.1 (0-0.2) 10^3/ul Absolute Nucleated RBC 0 10^3/ul Nucleated RBC % 0.1 Sodium 134 L (135-145) mmol/L Potassium 4.0 (3.5-5.0) mmol/L Chloride 96 L (101-111) mmol/L Carbon Dioxide 29 (22-32) mmol/L Anion Gap 9 (2-11) mmol/L BUN 15 (6-24) mg/dL Creatinine 1.07 (0.67-1.17) mg/dL Est GFR ( Amer) 84.2 (>60) Est GFR (Non-Af Amer) 69.6 (>60) BUN/Creatinine Ratio 14.0 (8-20) Glucose 342 H (70-100) mg/dL Lactic Acid 2.2 H* (0.5-2.0) mmol/L Calcium 9.7 (8.6-10.3) mg/dL Total Bilirubin 0.50 (0.2-1.0) mg/dL AST 12 L (13-39) U/L ALT 11 (7-52) U/L Alkaline Phosphatase 66 (34-104) U/L C-Reactive Protein 56.04 H (<8.01) mg/L Total Protein 7.0 (6.4-8.9) g/dL Albumin 3.6 (3.2-5.2) g/dL Globulin 3.4 (2-4) g/dL Albumin/Globulin Ratio 1.1 (1-3) Assess/Plan/Problems-Billing Assessment: THis is a 62 year old male patient with history of DM, PAD and chronic foot wounds that has presented with necrotic lrft great toe, r/o osteomyelitis. - Patient Problems (1) Non-healing open wound of toe Code(s): S91.109A - UNSP OPEN WOUND OF UNSP TOE(S) W/O DAMAGE TO NAIL, INIT SNOMED Code(s): 263560037 Comment: - Likely 2/2 PAD and DM - MRI foot to r/o osteo, consult ortho when results obtained - Consult ID for atbx management - ABIs and arterial dopplers complete, see above - Consult Dr. Mahan for revascularization evaluation - Continue cefepime and vanco for now (2) Peripheral arterial disease Code(s): I73.9 - PERIPHERAL VASCULAR DISEASE, UNSPECIFIED SNOMED Code(s): 051659562 Comment: - Positive for claudication per patient report - Vascular studies as above with ABIs - Consult placed with Dr. Mahan for vascular evaluation (3) Diabetes mellitus Code(s): E11.9 - TYPE 2 DIABETES MELLITUS WITHOUT COMPLICATIONS SNOMED Code(s) : 61873643 Comment: - Increase lantus in presence of necrosis - lispro SS, monitor ACHS (4) DVT prophylaxis Code(s): DEJ0747 - SNOMED Code(s): 683003049 Comment: - SQ heparin (5) Full code status Code(s): Z78.9 - OTHER SPECIFIED HEALTH STATUS SNOMED Code(s): 769576891 Status and Disposition: remain inpatient pending surgical evaluation and IV atbx.
--- NOTE | 2018-04-15 15:41 | CONS ---
CONSULTATION REPORT: DATE OF CONSULT: 04/15/18 REQUESTING PROVIDER: Steffanie Bradley NP. CONSULTING SERVICE: Infectious Disease. REASON FOR CONSULT: Left foot infection. IMPRESSION: 1. Left medial great toe small area of dry gangrene in the setting of what looks like diffuse emboli throughout his left foot. This is in the setting of claudication range JOSE. 2. Type 2 diabetes. 3. History of transient ischemic attack and stroke. 4. History of staphylococcal cellulitis and abscess after a left knee trauma. RECOMMENDATIONS: We will stop his vancomycin and change to cefepime and ceftriaxone. Continue the Flagyl. Most importantly, he will need a vascular evaluation to prevent further embolization. HISTORY OF PRESENT ILLNESS: This is a 62-year-old man with diabetes, admitted with left great toe pain and swelling. It came on over the last few days, initially with swelling, redness, and spread throughout the forefoot and then half of his toe turned black, so he came to the hospital yesterday. He has had weeks of fevers, chills, and sweats. When he came to the hospital, his white count was 7. He was afebrile. Blood cultures were sent and are pending. He had an x-ray of his foot that showed calcification of the arteries in the foot. He had an JOSE that showed claudication range changes in the left foot and leg. Today, the redness and swelling in his foot has improved both he thinks with keeping his foot up and from antibiotics. He was not keeping his foot up for the most part at home. PAST MEDICAL HISTORY: 1. Type 2 diabetes with peripheral neuropathy. 2. History of TIA. 3. Coronary artery disease. 4. Essential tremor. 5. Depression. 6. Trauma to the left knee, complicated by infection. 7. Hypertension. 8. Mild traumatic brain injury. MEDICATIONS: 1. Tylenol. 2. Docusate. 3. Heparin subcutaneous injection. 4. Insulin glargine. 5. Lamictal. 6. Cefepime 2 g every 12 hours. 7. Flagyl 500 mg every 12 hours. 8. Vancomycin. 9. Sertraline. 10. Senna. ALLERGIES: No known drug allergies. SOCIAL HISTORY: He lives in [place]. No injection drugs. He lives with his . 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 REVIEW OF SYSTEMS: All negative to a 14-point review of systems, except as noted above in the history of present illness. PHYSICAL EXAM: Vital Signs: Temperature is 36.6, heart rate 80, respiratory rate 17, blood pressure 155/85, oxygen saturation 98% on room air. In general, he is awake, not in distress. Neurologic: He is oriented x3. Follows all commands. Moves all of his extremities. HEENT: There is no conjunctival hemorrhage. Oropharynx is without lesions. Neck is supple without mass. Heart has regular rate and rhythm without murmurs, rubs, or gallops. Lungs are clear to auscultation bilaterally. Abdomen: Soft, nontender, nondistended. There are bowel sounds present. Skin: There is splinter hemorrhage or rash. Musculoskeletal: The left great toe medial third of it is necrotic and black with surrounding blanched skin and then erythematous skin extending up into the forefoot with diffuse edema in that distribution and then petechiae throughout the first through fifth toes as well. There is no tenderness to palpation. LABORATORY DATA: White blood cell count 7, hemoglobin 14, platelets 183. Creatinine is 1. CRP 56. Please see impressions and recommendations as outlined above. Thanks for asking me to see Mr. Doty in consultation. [id number]/[facility] #: [id number] LETY
[2018-04-16] MEDS: Cefepime 2 GM in Dextrose(*) 2 GM/50 ML BAG IV SCH ×2 (00:41→13:18)
[2018-04-16] MEDS: metroNIDAZOLE IV 500 MG/100ML* 500 MG/100 ML BAG IVPB SCH ×2 (01:22→14:06)
[2018-04-16] MEDS: Heparin VIAL(*) 5000 UNITS/ML VIAL (FIVE THOUSAND) SUBCUT SCH ×3 (05:44→21:35)
[2018-04-16] MEDS ORDERED: Vancomycin Trough Check NOTE FOLLOW UP ONE (07:30)
[2018-04-16] MEDS: lamoTRIgine TAB(*) 100 MG PO SCH (08:06)
[2018-04-16] MEDS: Sertraline* 100 MG TAB PO SCH (08:07)
[2018-04-16] MEDS: Insulin LISPRO* 1 UNITS UNIT SUBCUT SCH ×4 (08:07→20:33)
--- NOTE | 2018-04-16 09:04 | RAD ---
Indication: Left great toe osteomyelitis. Image sequences: Sagittal T1, STIR, coronal T1, STIR, axial T1 and STIR images great toe was obtained. There is ulcer of the dorsal aspect of the great toe distal phalanx. There is some bone marrow edema noted in the distal phalanx of the great toe however no bone marrow replacement is noted. This is likely due to reactive edema. Diffuse soft tissue swelling of the foot is noted. No evidence of drainable fluid collections are noted. Muscular edema surrounds the foot especially at the region of the metatarsals. IMPRESSION: Minimal bone marrow edema is noted in the distal phalanx of the great toe. No bone marrow replacement is noted in the abnormal signal is likely due to reactive edema. Diffuse muscular edema is noted surrounding the foot with no other evidence of osteomyelitis.
--- NOTE | 2018-04-16 12:31 | CONSULT ---
Consult Consult: Date of Service: 04/16/18 Consulting Service: Hospitalists Reason: Vascular evaluation in a patient with a necrotic left great toe DATE OF ADMISSION: 04/15/18 PRIMARY CARE PHYSICIAN: Gabbie Shell MD (Focused) HISTORY OF PRESENT ILLNESS: The patient's "Melvi" is at his bedside during H&P and supplements his history. This is a 62-year-old male with past medical history of diabetes and tobacco use , presented to the emergency room from urgent care with a left great toe wound. The patient states he had a pedicure few weeks ago, but had no complications or wounds after that, and then 3 to 4 days ago, he noticed a wound on his right great toe and over the past few days, the redness, swelling and pain have gotten worse. He went to urgent care and they sent him here to the emergency room. The patient states in the past he had a left heel ulcer. He reports ~6 months of left calf aching when he walks to his mailbox and back ( about 50 yards). He also reports having to take "rests" when taking his dog for a walk due to left calf aching that resolves with rest. No chest pain or shortness of breath. No nausea, vomiting, diarrhea, abdominal pain, or urinary symptoms. Otherwise, review of systems is negative. PAST MEDICAL HISTORY: 1. Diabetes. 2. History of recurrent TIAs. 3. History of coronary artery disease, status post right CVA. 4. Essential tremor. 5. Depression. 6. History of septic knee. 7. Hypertension. 8. History of mild traumatic brain injury. MEDICATIONS: 1. CBD oil one cap p.o. q. 6 hours as needed for his essential tremor. 2. Lamictal 200 mg p.o. daily. 3. Zoloft 100 mg daily. 4. Metformin 1000 mg p.o. b.i.d. 5. Glucotrol 10 mg daily. 6. Humalog as directed, a.c. ALLERGIES: No known drug allergies. Physical Exam: Selected Entries 04/16/18 07:17 Temperature 98.1 F Temperature Oral Source Pulse Rate 78 Respiratory 15 Rate Blood Pressure 140/85 (mmHg) Blood Pressure 96 Mean O2 Sat by Pulse 96 Oximetry Patient on Room Yes Air NAD, AAO x 3 CTAB RRR, S1/S2 2+ pulses palpated at the bilateral upper extremities 2+ pulses at the bilateral [employer], right pop and right DPA Questionable pulse palpated at left pop Cannot palpate left pedal pulses Black, necrotic tissue overlying the medial cuticle of the left great toe. There is mottling of the remainder of the left great toe and similar mottling is seen at the remaining left toes Neuromuscular function of LE is grossly intact. Patient reports + light touch sensation on plantar surface of feet Relevant Imaging: Patient Name: SANDRITA GUARDADO Medical Record#: [id number] Ordering Physician: Steffanie Bradley NP Acct.#: [id number] : 1955 Age: 62 Sex: M Location: [address] [place] [address] Exam Date: 04/15/18835 ADM Status: ADM IN Order Information: VL ANK/ BRACHIAL INDICES Accession Number: [id number] CPT: 31691 INDICATION: Necrotic left great toe COMPARISON: None. TECHNIQUE: Ankle-brachial indices and Doppler tracings were obtained of the lower extremities bilaterally. Volume pulse recordings were acquired at the bilateral ankles. REPORT: Ankle-brachial indices: Right: Value (SBP) Index Brachial: 171 Posterior tibialis: 151 0.87 Dorsalis pedis: 145 0.83 Left: Value (SBP) Index Brachial: 174 Posterior tibialis: 121 0.70 Dorsalis pedis: 107 0.61 Doppler waveforms (acquired at rest): In the interrogated lower extremity arteries, Doppler waveforms are biphasic in all distributions with reduced amplitude recorded in the left relative to the right. Volume pulse recordings (acquired at rest): Volume pulse recordings, measured at the bilateral ankles, are symmetric. IMPRESSION: ABIs are consistent with arterial insufficiency/claudication worse at the left than the right with derangement waveforms bilaterally and reduced amplitude recorded on the left. Patient Name: SANDRITA GUARDADO Medical Record#: [id number] Ordering Physician: Steffanie Bradley NP Acct.#: [id number] : 1955 Age: 62 Sex: M Location: [address] [place] [address] Exam Date: 04/15/18832 ADM Status: ADM IN Order Information: VL LOWER EXT ART DUPLEX LEFT Accession Number: [id number] CPT: 42325 INDICATION: Necrotic left great toe COMPARISON: Same day JOSE that demonstrates left worse than right claudication values TECHNIQUE: Escobar scale, color Doppler, and spectral analysis utilized to image the left lower extremity arteries. Flow velocities were determined at each visualized artery. REPORT: The left common femoral artery, proximal femoral profundus, superficial femoral artery, popliteal artery and infrapopliteal arteries exhibit patency. At the distal superficial femoral artery there are increased velocities measuring 155 cm/s which is more than 2 standard deviations above the average velocity. More proximally the flow velocity is measured at 83 cm/s yielding an approximate velocity ratio between the arteries of 221 which potentially corresponds to 50-75% degree stenosis. At other levels the arterial flow velocities and ratios of the femoral- popliteal arteries are within normal limits. There is no abrupt transition and velocities to indicate significant stenosis. There are no pathologically dilated arteries visualized. IMPRESSION: Elevated flow velocities at the distal left superficial femoral artery when compared to the more proximal segment of the artery correspond to at least 50% degree stenosis. Labs: Laboratory Tests 04/14/18 04/14/18 04/15/18 20:49 20:49 07:27 WBC 7.2 RBC 4.78 Hgb 14.8 Hct 43 Neut % (Auto) 78.4 BUN 15 Creatinine 1.07 Est GFR (Non-Af Amer) 69.6 POC Glucose (mg/dL) 233 H Glucose Meter Confirm C-Reactive Protein 56.04 H 04/15/18 04/15/18 04/15/18 11:34 16:36 20:49 WBC RBC Hgb Hct Neut % (Auto) BUN Creatinine Est GFR (Non-Af Amer) POC Glucose (mg/dL) 305 H 323 H Glucose Meter Confirm 312 H C-Reactive Protein 04/16/18 04/16/18 07:23 11:58 WBC RBC Hgb Hct Neut % (Auto) BUN Creatinine Est GFR (Non-Af Amer) POC Glucose (mg/dL) 178 H > 444 H* Glucose Meter Confirm C-Reactive Protein Summary: Critical Limb Ischemia. Mr. Guardado is a 62 year old cigarette smoking diabetic with a partially necrotic left great toe. Recent non-invasive vascular imaging indicates bilateral lower extremity arterial insufficiency, worse on the left. This is consistent with his reported history of left calf claudication and now a necrotic wound at the left great toe. He has high velocity flow in the left SFA consistent with at least 50% stenosis which corresponds to his weak left popliteal pulse and claudication history. The good news is the MRI does definitely show signs of osteomyelitis and he is not currently exhibiting signs of systemic sepsis other then elevated CRP. Recommendation/Plan: 1. Left leg arteriogram with anticipated revascularization/augmentation. I anticipate he will at least have a left SFA lesion to treat. 2. Systemic antibiotic therapy per Dr. Pérez (the patient is familiar with him and speaks of him highly). 3. I want to discuss with orthopaedic surgery about planning angiography with potential amputation and/or debridement. 4. The angiogram could occur on this hospital admission or later as an outpatient. 5. Recommend ASA 81 mg PO daily and start Plavix 75 mg po daily.
[2018-04-16] MEDS: Insulin GLARGINE(*) 1 UNITS UNIT SUBCUT SCH (13:21)
[2018-04-16] MEDS ORDERED: Insulin LISPRO* 1 UNITS UNIT SUBCUT ONE (14:00)
--- NOTE | 2018-04-16 19:48 | CONS ---
CONSULTATION REPORT: DATE OF CONSULT: 04/15/18 ATTENDING PROVIDER: Dr. Sanchez Webster. REASON FOR CONSULT: Left foot infection, dry gangrene of left great toe. HISTORY OF PRESENT ILLNESS: Mr. Doty is a 62-year-old male with past medical history of diabetes, tobacco use, recurrent TIAs, coronary artery disease, who presented to the emergency room on 04/15/18 after being sent in from an Urgent Care due to left great toe necrosis and infection. He states that the black discoloration of his great toe did not start until 3 to 4 days before he came into the hospital. He states that it started as a small black dot and the blackened area has worsened, and the foot has become erythematous. He also notes that he did not have any dusky discoloration throughout the toes until the past 3 days. He does have some mild pain of the left foot. He states that since he has arrived to the hospital, the swelling and erythema of the left foot has greatly improved. At baseline he does have some decreased sensation of bilateral lower extremities; but he does have the ability to feel all aspects of his feet. The patient is a diabetic and his last A1c was 8.1. His blood sugars usually run between 175 and 225. Over the past 3 months he has experienced left calf pain with ambulation that occurs with walking to the end of his driveway, which is roughly 20 yards. The patient has had some subjective fever and chills at home. PAST MEDICAL HISTORY: Includes diabetes; recurrent TIAs; last 1 year ago, 2 strokes, last in 2003 with memory impairment, resultant in essential tremor; depression; history of septic knee; hypertension; history of mild traumatic brain injury. PAST PSYCHIATRIC HISTORY: No history of adverse effects from anesthesia, laminectomy at age 15, carotid endarterectomy, and appendectomy. MEDICATIONS: 1. Lamictal 200 mg p.o. daily, though the patient denies any history of seizures. 2. Zoloft 100 mg p.o. daily. 3. Metformin 500 mg p.o. b.i.d. 4. Glucotrol 10 mg daily. 5. Humalog 30 units daily is used via 24-hour pump. He does not currently use CBD oil as listed in his chart, he has been certified and will be starting use in the future. ALLERGIES: No known drug allergies. FAMILY HISTORY: None noted. SOCIAL HISTORY: The patient lives at home with his , Maryam, who is his healthcare proxy. He smokes 1 pack per day for the past 50 years. No alcohol or illicit drug use. 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 REVIEW OF SYSTEMS: General: Confirms fever and chills prior to admission HEENT: Does have history of mild TBI, stroke and multiple CVAs. No headache or change in vision Cardiac: Denies chest pain or irregular beats. Denies history of heart attack Respiratory: Denies shortness of breath or cough. Denies history of asthma or COPD GI: Denies abdominal pain, nausea, vomiting, diarrhea : No dysuria, no known BPH MSK: left foot with redness and blackened great toe Neuro: Denies tingling or numbness of extremities Skin: red left foot, black spot of left great toe Hematology: Denies history of blood clot. PHYSICAL EXAM: The patient is well appearing, in no acute distress. Vital Signs: Temperature 98.1, pulse rate 78, respiratory rate 15, oxygen saturation 96, blood pressure 148/85. HEENT: Head normocephalic and atraumatic. Pupils EOMI. Respiratory: Normal rate and effort of breathing. Cardiovascular: Radial pulse 2+ and regular. On the left lower extremity, DP and PT are not palpable, though confirmed by Hospitalist with Doppler. Right lower extremity DP 1+, PT not palpable, though again confirmed by Hospitalist with Doppler. Extremities: Left great toe with a necrotic wound along the medial and inferior nail bed. Mild erythema spanning to mid foot. Dusky appearance of toes 1 through 4 both on the dorsal and plantar surface. The patient's sensation is intact to light touch throughout the left lower extremity, though he states that he has a decreased sensation. He is able to wiggle all toes. There is no foul odor. Toe was not hot to touch. There is no discharge. ASSESSMENT: Left medial great toe with dark dry gangrene. PLAN/RECOMMENDATIONS: The patient will be seen by Dr. Mahan today to determine if revascularization is an option. After vascular status is optimized , debridement of the gangrenous area would be required. As long as patient does not become systemically ill, and appearance of toes does not worsen, it would be acceptable to hold surgical debridement/ amputation for a short time until revascularization is complete. The patient will remain on antibiotics as recommended by Hospitalist and infectious disease service. He will be weightbearing as tolerated. His left toes should be wrapped with a loose gauze dressing for protection and prevention of infection. SAIDA ADAM [id number]/[facility] #: [id number] MTDRosa
[2018-04-17] MEDS: Cefepime 2 GM in Dextrose(*) 2 GM/50 ML BAG IV SCH ×2 (01:06→13:36)
[2018-04-17] MEDS: metroNIDAZOLE IV 500 MG/100ML* 500 MG/100 ML BAG IVPB SCH ×2 (01:49→14:13)
[2018-04-17] MEDS: Heparin VIAL(*) 5000 UNITS/ML VIAL (FIVE THOUSAND) SUBCUT SCH ×3 (06:04→22:13)
[2018-04-17] MEDS: lamoTRIgine TAB(*) 100 MG PO SCH (08:38)
[2018-04-17] MEDS: Sertraline* 100 MG TAB PO SCH (08:38)
[2018-04-17] MEDS: Insulin LISPRO* 1 UNITS UNIT SUBCUT SCH ×4 (08:39→22:07)
--- NOTE | 2018-04-17 08:45 | CONSULT ---
Consult Consult: I saw Price this morning. Please see Jyoti Mcdaniels's note for full H&P details. Price has DM, PVD and is a smoker. He has a few days of necrosis developing at the medial aspect of his left hallux. His other toes on the left are dusky with sluggish capillary refill. He had abnormal JOSE's. MRI did not reveal underlying osteomyelitis. I spoke with Dr. Mahan and he will do angiogram and try to improve vascular supply. I explained to Price that I am worried that he could lose the forefoot given the appearance. I discussed the need to quit smoking. He will remain on oral antibotics. We will await the results of his angiogram and vascular intervention. Jose Juan King MD
[2018-04-17] MEDS: Al Hydrox/Mg Hydrox/Simet LIQ* 30 ML UDC PO PRN ×2 (12:12→22:15)
[2018-04-17] MEDS: Insulin GLARGINE(*) 1 UNITS UNIT SUBCUT SCH (12:13)
--- NOTE | 2018-04-17 16:23 | PN ---
Subjective Date of Service: 04/17/18 Interval History: He denies pain or numbness of either foot. He states the L foot looks better today--it was darker yesterday. No chills, sweats. Appetite OK. Objective Active Medications: Acetaminophen (Tylenol Tab*) 650 mg PO Q4H PRN PRN Reason: FEVER/PAIN Al Hydrox/Mg Hydrox/Simethicone (Maalox Plus*) 30 ml PO Q6H PRN PRN Reason: INDIGESTION Last Admin: 04/17/18 12:12 Dose: 30 ml Dextrose (D50w Syringe 50 Ml*) 12.5 gm IV PUSH .FOR FS < 60 - SS PRN PRN Reason: FS < 60 Docusate Sodium (Colace Cap*) 100 mg PO BID PRN PRN Reason: CONSTIPATION Heparin Sodium (Porcine) (Heparin Vial(*)) 5,000 units SUBCUT Q8HR [facility] Last Admin: 04/17/18 14:14 Dose: 5,000 units Cefepime HCl (Maxipime 2 Gm In Dextrose Duplex (*)) 2 gm in 50 mls @ 100 mls/ hr IV Q12H [facility] Last Admin: 04/17/18 13:36 Dose: 100 mls/hr Metronidazole/Sodium Chloride (Flagyl 500 Mg Ivpb*) 500 mg in 100 mls @ 100 mls /hr IVPB Q12H [facility] Last Admin: 04/17/18 14:13 Dose: 100 mls/hr Insulin Glargine (Lantus(*)) 20 units SUBCUT Q24H [facility] Last Admin: 04/17/18 12:13 Dose: 20 units Insulin Human Lispro (Humalog*) 0 units SUBCUT ACHS [facility]; Protocol Last Admin: 04/17/18 12:12 Dose: 3 units Lamotrigine (Lamictal Tab(*)) 200 mg PO DAILY [facility] Last Admin: 04/17/18 08:38 Dose: 200 mg Ondansetron HCl (Zofran Inj*) 4 mg IV Q4H PRN PRN Reason: NAUSEA/VOMITING Senna (Senokot Tab*) 1 tab PO BID PRN PRN Reason: CONSTIPATION Sertraline HCl (Zoloft*) 100 mg PO DAILY [facility] Last Admin: 04/17/18 08:38 Dose: 100 mg Vital Signs - 8 hr 04/17/18 04/17/18 04/17/18 08:24 11:21 15:21 Temperature 97.9 F 98.2 F Pulse Rate 88 77 Respiratory 20 20 18 Rate Blood Pressure 137/69 136/63 (mmHg) O2 Sat by Pulse 99 93 Oximetry Oxygen Devices in Use Now: None Appearance: Alert, supine in bed. In good spirits. Looks comfortable. Eyes: No Scleral Icterus Respiratory: Symmetrical Chest Expansion and Respiratory Effort, Clear to Auscultation, Clear to Percussion Cardiovascular: NL Sounds; No Murmurs; No JVD, RRR, No Edema, - Extremities: No Edema, No Clubbing, Cyanosis, - Skin: No Nodules or Sclerosis, - - L toes all dusky. L great toe open most of lateral surface, dry gangrene Result Diagrams: 04/14/18 20:49 04/14/18 20:49 Additional Lab and Data: Lab Results 04/14/18 04/14/18 04/14/18 Range/Units 20:49 20:49 20:49 WBC 7.2 (3.5-10.8) 10^3/ul RBC 4.78 (4.00-5.40) 10^6/ul Hgb 14.8 (14.0-18.0) g/dl Hct 43 (42-52) % MCV 90 (80-94) fL MCH 31 (27-31) pg MCHC 34 (31-36) g/dl RDW 14 (10.5-15) % Plt Count 183 (150-450) 10^3/ul MPV 7.3 L (7.4-10.4) um3 Neut % (Auto) 78.4 (38-83) % Lymph % (Auto) 8.5 L (25-47) % [place] % (Auto) 10.2 H (0-7) % Eos % (Auto) 1.6 (0-6) % Baso % (Auto) 1.3 (0-2) % Absolute Neuts (auto) 5.6 (1.5-7.7) 10^3/ul Absolute Lymphs (auto) 0.6 L (1.0-4.8) 10^3/ul Absolute Monos (auto) 0.7 (0-0.8) 10^3/ul Absolute Eos (auto) 0.1 (0-0.6) 10^3/ul Absolute Basos (auto) 0.1 (0-0.2) 10^3/ul Absolute Nucleated RBC 0 10^3/ul Nucleated RBC % 0.1 Sodium 134 L (135-145) mmol/L Potassium 4.0 (3.5-5.0) mmol/L Chloride 96 L (101-111) mmol/L Carbon Dioxide 29 (22-32) mmol/L Anion Gap 9 (2-11) mmol/L BUN 15 (6-24) mg/dL Creatinine 1.07 (0.67-1.17) mg/dL Est GFR ( Amer) 84.2 (>60) Est GFR (Non-Af Amer) 69.6 (>60) BUN/Creatinine Ratio 14.0 (8-20) Glucose 342 H (70-100) mg/dL Lactic Acid 2.2 H* (0.5-2.0) mmol/L Calcium 9.7 (8.6-10.3) mg/dL Total Bilirubin 0.50 (0.2-1.0) mg/dL AST 12 L (13-39) U/L ALT 11 (7-52) U/L Alkaline Phosphatase 66 (34-104) U/L C-Reactive Protein 56.04 H (<8.01) mg/L Total Protein 7.0 (6.4-8.9) g/dL Albumin 3.6 (3.2-5.2) g/dL Globulin 3.4 (2-4) g/dL Albumin/Globulin Ratio 1.1 (1-3) Microbiology and Other Data: Microbiology 04/14/18 20:48 Aerobic Blood Culture - Preliminary Blood Venous No Growth Day 2 Anaerobic Blood Culture - Preliminary No Growth Day 2 04/14/18 20:48 Aerobic Blood Culture - Preliminary Blood Venous No Growth Day 2 Anaerobic Blood Culture - Preliminary No Growth Day 2 Assess/Plan/Problems-Billing Assessment: THis is a 62 year old male patient with history of DM, PAD and chronic foot wounds that has presented with necrotic lrft great toe, r/o osteomyelitis. - Patient Problems (1) Non-healing open wound of toe Current Visit: Yes Status: Acute Code(s): S91.109A - UNSP OPEN WOUND OF UNSP TOE(S) W/O DAMAGE TO NAIL, INIT SNOMED Code(s): 232829146 Comment: - Likely 2/2 PAD and DM - MRI foot did not show definite evidence of osteo. - ABIs and arterial dopplers complete, likely SFA lesion +/- other lesions. Dr. Mahan will do angiogram/revasc 04/18. - Continue cefepime and metronidazole. (2) Diabetes mellitus Current Visit: No Status: Chronic Code(s): E11.9 - TYPE 2 DIABETES MELLITUS WITHOUT COMPLICATIONS SNOMED Code(s): 59157988 Comment: - Increase lantus to 26 U start 04/18, extra 6 U 04/17 to catch up. - lispro SS, monitor ACHS Hold home metformin. (3) Tobacco abuse Current Visit: Yes Status: Acute Code(s): Z72.0 - TOBACCO USE SNOMED Code( s): 111888901 Comment: Pt advised to quit smoking and avoid second hand smoke. I warned him that smoking would make it more likely for his foot problem to ascend his leg. (4) Mild traumatic brain injury Current Visit: No Status: Acute Priority: High Onset Date: 09/29/15 Code (s): S06.9X9A - UNSP INTRACRANIAL INJURY W LOC OF UNSP DURATION, INIT SNOMED Code(s): 374304261 Comment: Possible reason he is on lamotrigine. Status and Disposition: remain inpatient pending surgical evaluation and IV atbx.
[2018-04-17] MEDS ORDERED: Insulin GLARGINE(*) 1 UNITS UNIT SUBCUT ONE (16:24)
[2018-04-17] MEDS: Aspirin 81 mg CHEW TAB* 81 MG TAB.CHEW PO SCH (18:06)
[2018-04-17] MEDS: Clopidogrel TAB* 75 MG PO SCH (18:06)
[2018-04-17] MEDS ORDERED: Insulin LISPRO* 1 UNITS UNIT SUBCUT ONE (21:55)
[2018-04-18] MEDS: metroNIDAZOLE IV 500 MG/100ML* 500 MG/100 ML BAG IVPB SCH ×2 (01:38→17:05)
[2018-04-18] MEDS: Cefepime 2 GM in Dextrose(*) 2 GM/50 ML BAG IV SCH ×2 (02:50→18:20)
[2018-04-18] MEDS: Heparin VIAL(*) 5000 UNITS/ML VIAL (FIVE THOUSAND) SUBCUT SCH ×3 (04:10→21:00)
[2018-04-18] MEDS: Insulin LISPRO* 1 UNITS UNIT SUBCUT SCH ×4 (08:16→20:59)
[2018-04-18] MEDS: lamoTRIgine TAB(*) 100 MG PO SCH (08:54)
[2018-04-18] MEDS: Sertraline* 100 MG TAB PO SCH (08:54)
[2018-04-18] MEDS: Aspirin 81 mg CHEW TAB* 81 MG TAB.CHEW PO SCH (08:54)
[2018-04-18] MEDS: Clopidogrel TAB* 75 MG PO SCH (08:54)
[2018-04-18] MEDS ORDERED: Iohexol 350 (CONTRAST) 200 ML MDV IV ONE (11:47)
[2018-04-18] MEDS ORDERED: Lidocaine 1% INJ* 10 MG/ML 30 ML SDV ONE (11:47)
[2018-04-18] MEDS ORDERED: Heparin 2 UNITS/ML IVPREMIX* 2,000 ML IV ONE (11:47)
[2018-04-18] MEDS ORDERED: Midazolam* 1 MG/ML 10 ML VIAL (10 MG) ONE (12:02)
[2018-04-18] MEDS ORDERED: fentaNYL* 50 MCG/ML 5 ML VIAL (250 MCG VIAL) ONE (12:02)
[2018-04-18] MEDS ORDERED: nitroGLYCERIN DRIP* 25,000 MCG/250 ML BTL ONE (12:03)
[2018-04-18] MEDS ORDERED: Heparin(*) 1000 UNIT/ML 10 ML VIAL CATH LAB IV ONE (12:13)
[2018-04-18] MEDS ORDERED: Al Hydrox/Mg Hydrox/Simet LIQ* 30 ML UDC ONE (12:15)
[2018-04-18] MEDS ORDERED: Ondansetron INJ* 2 MG/ML VIAL ONE ×2 (12:18→16:13)
[2018-04-18] MEDS ORDERED: VERAPAMIL 2.5 MG/ML 2 ML VIAL ** 5 mg/2 ml ONE (13:29)
[2018-04-18] MEDS ORDERED: Heparin 2 UNITS/ML IVPREMIX* 1,000 ML IV ONE (14:00)
--- NOTE | 2018-04-18 17:31 | PN ---
Subjective Date of Service: 04/18/18 Interval History: Patient was seen and examined. Reports feeling well. Spoke with Dr. Mahan earlier, hade LLE revascular procedure done today. Please refer to procedure note for details. Patient denies leg pain, calf pain or SOB. Feels hungry, denies abdominal pain or nausea. Had 2 episodes of emesis at begining and end of procedure, he thinks due to meds, but feels better now. Dr. Mahan described coffee ground emesis to me, will plan on coverage with PPI and check labs in AM. Family History: Unchanged from Admission Social History: Unchanged from Admission Past Medical History: Unchanged from Admission Objective Active Medications: Acetaminophen (Tylenol Tab*) 650 mg PO Q4H PRN PRN Reason: FEVER/PAIN Al Hydrox/Mg Hydrox/Simethicone (Maalox Plus*) 30 ml PO Q6H PRN PRN Reason: INDIGESTION Last Admin: 04/17/18 22:15 Dose: 30 ml Aspirin (Aspirin 81 Mg Chew Tab*) 81 mg PO DAILY [facility] Last Admin: 04/18/18 08:54 Dose: 81 mg Clopidogrel Bisulfate (Plavix Tab*) 75 mg PO DAILY [facility] Last Admin: 04/18/18 08:54 Dose: 75 mg Dextrose (D50w Syringe 50 Ml*) 12.5 gm IV PUSH .FOR FS < 60 - SS PRN PRN Reason: FS < 60 Docusate Sodium (Colace Cap*) 100 mg PO BID PRN PRN Reason: CONSTIPATION Heparin Sodium (Porcine) (Heparin Vial(*)) 5,000 units SUBCUT Q8HR [facility] Last Admin: 04/18/18 16:11 Dose: Not Given Cefepime HCl (Maxipime 2 Gm In Dextrose Duplex (*)) 2 gm in 50 mls @ 100 mls/ hr IV Q12H [facility] Last Admin: 04/18/18 02:50 Dose: 100 mls/hr Metronidazole/Sodium Chloride (Flagyl 500 Mg Ivpb*) 500 mg in 100 mls @ 100 mls /hr IVPB Q12H [facility] Last Admin: 04/18/18 17:05 Dose: 100 mls/hr Insulin Glargine (Lantus(*)) 26 units SUBCUT Q24HR@1200 [facility] Insulin Human Lispro (Humalog*) 0 units SUBCUT ACHS [facility]; Protocol Lamotrigine (Lamictal Tab(*)) 200 mg PO DAILY [facility] Last Admin: 04/18/18 08:54 Dose: 200 mg Ondansetron HCl (Zofran Inj*) 4 mg IV Q4H PRN PRN Reason: NAUSEA/VOMITING Pantoprazole Sodium (Protonix Iv*) 40 mg IV BID [facility] Senna (Senokot Tab*) 1 tab PO BID PRN PRN Reason: CONSTIPATION Sertraline HCl (Zoloft*) 100 mg PO DAILY [facility] Last Admin: 04/18/18 08:54 Dose: 100 mg Vital Signs - 8 hr 04/18/18 04/18/18 04/18/18 09:31 09:37 09:41 Temperature Pulse Rate 83 84 Respiratory 16 16 17 Rate Blood Pressure 135/83 (mmHg) O2 Sat by Pulse 98 92 Oximetry 04/18/18 04/18/18 04/18/18 09:42 10:00 10:12 Temperature Pulse Rate 84 82 82 Respiratory 17 15 20 Rate Blood Pressure 133/89 147/83 (mmHg) O2 Sat by Pulse 97 97 95 Oximetry 04/18/18 04/18/18 04/18/18 10:42 11:00 11:12 Temperature Pulse Rate 80 81 89 Respiratory 19 15 21 Rate Blood Pressure 142/68 157/77 (mmHg) O2 Sat by Pulse 96 94 97 Oximetry 04/18/18 04/18/18 04/18/18 11:42 16:54 16:57 Temperature 97.8 F 97.8 F Pulse Rate 86 79 79 Respiratory 18 18 Rate Blood Pressure 138/79 157/85 157/85 (mmHg) O2 Sat by Pulse 94 96 96 Oximetry Oxygen Devices in Use Now: None Appearance: Appears comfortable and in NAD Eyes: No Scleral Icterus, PERRLA Ears/Nose/Mouth/Throat: Clear Oropharnyx, Mucous Membranes Moist Neck: NL Appearance and Movements; NL JVP, Trachea Midline Respiratory: Symmetrical Chest Expansion and Respiratory Effort, Clear to Auscultation Cardiovascular: NL Sounds; No Murmurs; No JVD, RRR Abdominal: NL Sounds; No Tenderness; No Distention Extremities: No Edema, - - LLE with a clean dry dressing just next to medial maleulus. No bleeding or discharge. Left great toe with black eschar noted at tip and medial aspect. 2nd toe appears to be more "pink" per patient. Pedal pulse 1+ Skin: No Rash or Ulcers Neurological: Alert and Oriented x 3, NL Sensation, NL Muscle Strength and Tone Nutrition: Taking PO's Result Diagrams: 04/14/18 20:49 04/14/18 20:49 Additional Lab and Data: Lab Results 04/14/18 04/14/18 04/14/18 Range/Units 20:49 20:49 20:49 WBC 7.2 (3.5-10.8) 10^3/ul RBC 4.78 (4.00-5.40) 10^6/ul Hgb 14.8 (14.0-18.0) g/dl Hct 43 (42-52) % MCV 90 (80-94) fL MCH 31 (27-31) pg MCHC 34 (31-36) g/dl RDW 14 (10.5-15) % Plt Count 183 (150-450) 10^3/ul MPV 7.3 L (7.4-10.4) um3 Neut % (Auto) 78.4 (38-83) % Lymph % (Auto) 8.5 L (25-47) % [place] % (Auto) 10.2 H (0-7) % Eos % (Auto) 1.6 (0-6) % Baso % (Auto) 1.3 (0-2) % Absolute Neuts (auto) 5.6 (1.5-7.7) 10^3/ul Absolute Lymphs (auto) 0.6 L (1.0-4.8) 10^3/ul Absolute Monos (auto) 0.7 (0-0.8) 10^3/ul Absolute Eos (auto) 0.1 (0-0.6) 10^3/ul Absolute Basos (auto) 0.1 (0-0.2) 10^3/ul Absolute Nucleated RBC 0 10^3/ul Nucleated RBC % 0.1 Sodium 134 L (135-145) mmol/L Potassium 4.0 (3.5-5.0) mmol/L Chloride 96 L (101-111) mmol/L Carbon Dioxide 29 (22-32) mmol/L Anion Gap 9 (2-11) mmol/L BUN 15 (6-24) mg/dL Creatinine 1.07 (0.67-1.17) mg/dL Est GFR ( Amer) 84.2 (>60) Est GFR (Non-Af Amer) 69.6 (>60) BUN/Creatinine Ratio 14.0 (8-20) Glucose 342 H (70-100) mg/dL Lactic Acid 2.2 H* (0.5-2.0) mmol/L Calcium 9.7 (8.6-10.3) mg/dL Total Bilirubin 0.50 (0.2-1.0) mg/dL AST 12 L (13-39) U/L ALT 11 (7-52) U/L Alkaline Phosphatase 66 (34-104) U/L C-Reactive Protein 56.04 H (<8.01) mg/L Total Protein 7.0 (6.4-8.9) g/dL Albumin 3.6 (3.2-5.2) g/dL Globulin 3.4 (2-4) g/dL Albumin/Globulin Ratio 1.1 (1-3) Microbiology and Other Data: Microbiology 04/14/18 20:48 Aerobic Blood Culture - Preliminary Blood Venous No Growth Day 2 Anaerobic Blood Culture - Preliminary No Growth Day 2 04/14/18 20:48 Aerobic Blood Culture - Preliminary Blood Venous No Growth Day 2 Anaerobic Blood Culture - Preliminary No Growth Day 2 Diagnostic Imaging: . EKG Data: . Assess/Plan/Problems-Billing Assessment: THis is a 62 year old male patient with history of DM, PAD and chronic foot wounds that has presented with necrotic left great toe with surrounding dry gangrene, who is s/p revascularization earlier today. - Patient Problems (1) Non-healing open wound of toe Current Visit: Yes Status: Acute Comment: - Likely 2/2 PAD and DM - MRI foot did not show definite evidence of osteo. - ABIs and arterial dopplers complete, likely SFA lesion +/- other lesions. Dr. Mahan did an angiogram/revasc 04/18. - Continue cefepime and metronidazole. - May still need partial or total big toe amputation, awit orthopedic recommendation (2) Peripheral arterial disease Current Visit: Yes Status: Acute Comment: - Positive for claudication per patient report - Vascular studies as above with ABIs - Consult placed with Dr. Mahan for vascular evaluation (3) Tobacco abuse Current Visit: Yes Status: Acute Comment: - Pt advised to quit smoking and avoid second hand smoke. - I warned him that smoking would make it more likely for his foot problem to ascend his leg. (4) Depression Current Visit: No Status: Acute Comment: - Continue wellbutrin and zoloft. (5) Diabetes mellitus Current Visit: No Status: Chronic Comment: - Increase lantus to 26 U start 04/18, extra 6 U 04/17 to catch up. - lispro SS, monitor ACHS - Hold home metformin. - Patient would like to resume his Insulin pump, will re-evaluate in AM since he has been NPO most of today. (6) Essential tremor Current Visit: No Status: Chronic Comment: - Continue lamictal (7) DVT prophylaxis Current Visit: No Status: Acute Comment: - SQ heparin (8) Full code status Current Visit: No Status: Acute Status and Disposition: Remain inpatient, anticipate discharge when medically stable.
--- NOTE | 2018-04-18 18:00 | RAD ---
CPT II Codes: G9500 Procedure(s) performed: 1. Diagnostic pelvic and right lower extremity arteriogram. 2. Revascularization of 100% occluded right popliteal artery and tibioperoneal trunk. 3. Atherectomy of right superficial femoral artery, popliteal artery and tibioperoneal trunk. 4. Balloon angioplasty of the right superficial femoral artery, popliteal artery, tibioperoneal trunk and posterior tibial artery. 5. Percutaneous Minx closure device deployed at the right common femoral artery. Date of service: April 18, 2018 Indication for procedure: Critical limb ischemia. Partially gangrenous left great toe. Six-month history of walking limiting claudication pain. Comparison: Lower extremity arterial duplex and JOSE dated April 15, 2018 Contrast: 130 mL on the patent 350 Fluoroscopy Time: 29 minutes Vessels Accessed: 1. Percutaneous access was obtained with ultrasound guidance in the right common femoral artery in the retrograde direction towards the heart. 2. Left posterior tibial artery in the retrograde direction towards the heart. Catheter arteriography, with the catheter tip located within the lumen of the following arteries, was performed at the right external iliac artery, aorta, left external iliac artery, left common femoral artery, left superficial femoral artery and left posterior tibial artery.. Anesthesia: Conscious sedation with IV Fentanyl and Versed as well as local 1% lidocaine injected locally at the arteriotomy site. Conscious sedation time: Timeout: 1222 hours Case end: 1600 hours Total conscious sedation time: 3 hours and 38 minutes Additional medications: * 900 mcg IA nitroglycerin injected intermittently throughout the course of the procedure to alleviate arterial spasm. * IV heparin 5000 Units to achieve a goal ACT of 250-300. * The patient received 1 mg of p.o. Ativan prior to the onset of the procedure. * The patient received a "radial cocktail" injected into the left posterior tibial artery which included 3000 units heparin, 3 mg of verapamil and 300 mcg of nitroglycerin. PROCEDURE NOTE AND INTRAPROCEDURAL IMAGING FINDINGS: Immediately prior to the procedure the patient signed consent after thoroughly discussing all risks, benefits and alternative therapies. The patient was positioned on the fluoroscopy table in the supine position and the bilateral groins were shaved, prepped and the patient was draped in standard sterile fashion. Using fluoroscopic imaging the location of the right common femoral head was marked externally with a skin marker on the patient's groin. Utilizing sonographic guidance and palpation, the right common femoral artery was cannulated overlying the femoral head with a 21-gauge needle. An ultrasound image was saved. A microwire was slowly and smoothly advanced into the common femoral artery under fluoroscopic imaging. No buckling of the wire was visualized to indicate dissection. With the wire securing percutaneous arterial access, the needle was removed and a 5-[place] access sheath was advanced under fluoroscopic control into the common femoral artery retrograde into the right external iliac artery securing access. Contrast injected into the access sheath with the tip at the right external iliac artery demonstrates appropriate arteriotomy access point above the femoral bifurcation and below the inferior per gastric artery. Patent arterial flow is documented from the right external iliac artery into the proximal femoral profundus and right superficial femoral artery. A 0.035 inch wire was advanced into the aorta followed by a multi sidehole flush catheter. Power injector aortography was performed showing the infrarenal abdominal aorta to be adequately patent with adequate flow in the bilateral iliac arteries as far as the bilateral proximal superficial femoral arteries and femoral profundus arteries. The wire was reinserted and access was obtained across the iliac bifurcation with a C2 C5 [place] catheter. A 0.035 inch hydrophilic wire was advanced into the left superficial femoral artery and over this wire the multiside hole flush catheter was advanced until the tip was in the left common femoral artery. Arteriography of the proximal left superficial femoral artery shows the proximal artery as well as the femoral profundus to be adequately patent. Beginning at the mid-level superficial femoral artery there are series of high-grade stenoses culminating and complete occlusion of the the popliteal artery. Hypertrophy of the medial geniculate arteries indicate a chronic condition. More inferiorly the proximal BRYN, PRESSFITTER and peroneal arteries fill by collateralized flow. The tibioperoneal trunk is occluded as well. Over the wire securing access across the iliac bifurcation the short 5-[place] sheath was removed and replaced with a 65 cm length 7-[place] destination sheath which was advanced until the tip was in the left common femoral artery under fluoroscopic control. Arteriography of the upper left lower leg shows the PRESSFITTER, peroneal and BRYN arteries to be mostly patent. There are several small foci of narrowing in the left PRESSFITTER and likely in the BRYN as well. Under fluoroscopic guidance the long access sheath was advanced into the left superficial femoral artery as far as it would go to provide support for revascularization. Utilizing a wire and catheter combination attempt was made to revascularize the occluded popliteal artery from the right common femoral access point. This proved unsuccessful. It was decided this point to access the left posterior tibial artery to revascularize the occluded left popliteal artery in the retrograde fashion. The left foot and ankle were prepped and draped according to sterile procedure. The skin overlying the left PRESSFITTER was anesthetized with 1% lidocaine and access was obtained in the artery with a 21-gauge needle under sonographic guidance. An image was saved of the wire and needle in the left posterior tibial artery. Utilizing a combination of a destination microcatheter and 0.014" Runthrough wire the occluded left popliteal artery and tibioperoneal trunk was revascularize without signs of dissection. The microwire was advanced into the long access sheath and advanced out of the right common femoral arteriotomy. At this point "through and through" access was obtained from the right common femoral artery to the posterior tibial artery. The destination microcatheter was advanced over the microwire from the right common femoral artery as far as the left posterior tibial artery. The wire was then removed and standard access was obtained from the right common femoral artery across the occluded left popliteal and tibioperoneal trunk. The microwire was exchanged for a 0.014 inch Viperwire for the purpose of atherectomy. Over the microwire a 2.2 mm Vanleer atherectomy device was advanced to the mid-level left superficial femoral artery and atherectomy was performed at the area of multiple stenoses of the left superficial femoral artery. The device was advanced further and slow atherectomy was performed at the occluded left popliteal artery into the tibioperoneal trunk. A total of 3 atherectomy passes were made under fluoroscopic control. Subsequent arteriogram showed some restored flow through the previously occluded popliteal artery. The atherectomy device was removed and the Viper wire was exchanged for the 0.014" Runthrough and the tip was positioned in the distal left posterior tibial artery. Over this wire balloon angioplasty was performed across the left SFA and popliteal artery utilizing a 4 mm x 120 mm Nanocross balloon balloon angioplasty was performed into the ostium of the left posterior tibial artery as well. During each inflation the balloon was inflated up to 13 himanshu corresponding to a diameter measurement of 4.3 mm. The balloon was removed and subsequent arteriogram showed improved flow through the previously occluded arterial circuit. Next, a 2.5-3.0 mm by 210 mm Nanocross balloon was advanced over the microwire and balloon angioplasty was performed with long the entire length of the left posterior tibial artery. The balloon was ultimately inflated to 13 himanshu corresponding to a distal diameter measurement of 2.7 mm in a proximal diameter measurement of 3.3 mm. The balloon remained inflated for a total of 4 minutes to address vasospasm. The balloon was removed and arteriogram with the tip of the sheath in the mid-level left superficial femoral artery demonstrates in-line flow as far as the distal PRESSFITTER and peroneal arteries. A catheter was advanced over the wire and the microwire was exchanged for a 0.035 inch hydrophilic wire which was advanced into the distal posterior tibial artery. Over this wire a 5 mm x 120 mm paclitaxel coated InPact balloon was advanced across the previously occluded left popliteal artery and tibioperoneal trunk and balloon angioplasty was performed. The balloon was inflated to 8 himanshu corresponding to a diameter measurement of 5 mm and remain inflated for a total of 4 minutes to ensure adequate drug delivery to the endothelium. The same balloon was drawn back and balloon angioplasty was performed throughout the remainder of the SFA up to the proximal portion, this time inflating the balloon to 13 himanshu corresponding to a diameter measurement of 5.3 mm. During each inflation the balloon remained inflated for a total of 3 minutes. Final arteriogram shows vastly improved brisk flow from the mid-level SFA as far as the distal infrapopliteal arteries. Of particular relevance is filling of the dorsalis pedis artery and pedal loop via the anterior tibial artery and branches of the left peroneal artery. The posterior tibial artery fills briskly up to the distal access sheath, not an unexpected finding with an access sheath occluding the lumen distally. Over the wire the 65 cm length access sheath was exchanged for a new 7-[place], 11 cm length access sheath intended specifically for percutaneous arterial closure. Through the side arm of the access sheath arteriography of the right common femoral artery demonstrated an appropriate puncture of the common femoral artery above the bifurcation and below the inferior epigastric artery. After an appropriate resterilization of the arteriotomy and exchange for new sterile gloves, a Minx closure device was deployed at the common femoral arteriotomy and pressure held for approximately 15 minutes. Simultaneously the 4-[place] sheath at the left posterior tibial artery was removed and direct manual pressure was held for approximately 20 minutes. There is no signs of bleeding and a sterile bandage was applied to the medial left ankle. There were no signs of bleeding at the right common femoral artery percutaneous arterial access site and the site was dressed with sterile gauze and Tegaderm. The patient tolerated the procedure well and was transferred to angiography holding bay for standard post procedural observation. SUMMARY OF PROCEDURE, IMAGING FINDINGS AND INTERVENTIONS PERFORMED: 1. Diagnostic studies performed: * Arterial access was obtained at the right common femoral artery in the retrograde direction (i.e. towards the heart) with ultrasound guidance. A sonographic image was recorded. * After unsuccessful attempts to revascularize the occluded popliteal artery from an antegrade approach, arterial access was obtained at the left posterior tibial artery in the retrograde direction (i.e. towards the heart) with ultrasound guidance. A sonographic image was recorded. * Diagnostic catheter angiography (necessary to perform the appropriate interventions) was performed with the catheter tip in the right external iliac artery, aorta, left external iliac artery, left common femoral artery, left superficial femoral artery and left posterior tibial artery. * Catheter arteriography was performed of the lower abdominal aorta and bilateral iliac arterial system as far as the proximal femoral arteries bilaterally followed by the entire arterial circuit of the left lower extremity as far as the forefoot. * At the conclusion of the procedure arteriography was performed through the side arm of the access sheath to image the distal right external iliac artery, right common femoral artery and proximal superficial femoral artery and femoral profundus. 2. Interpretation of diagnostic studies performed: * Multifocal stenoses beginning at the mid-level left superficial femoral artery culminating and complete occlusion of the left popliteal artery that extends into the left tibioperoneal trunk. The infrapopliteal arteries fill by collateralized flow, predominantly the left geniculate arteries. * I suspect that the previous arterial duplex which documented a patent popliteal artery was in fact measuring the hypertrophied collateralized left geniculate arteries. * Multifocal stenoses in the left posterior tibial artery and to a lesser extent the left anterior tibial artery. * Arteriography performed for the purpose of deploying a percutaneous arterial closure device demonstrates adequately patent right external iliac artery, common femoral artery and proximal superficial femoral artery and femoral profundus. 3. Surgical interventions performed: * Catheter wire revascularization of the 100% occluded left popliteal artery and tibioperoneal trunk. After attempt to revascularize from the antegrade direction was unsuccessful, percutaneous access was obtained at the left posterior tibial artery and the occluded arteries were revascularized from the retrograde approach. * Frontal cutting atherectomy of the left superficial femoral artery, popliteal artery and tibioperoneal trunk with a 2.2 mm Vanleer atherectomy device. * Balloon angioplasty of the left popliteal artery, tibioperoneal trunk and proximal most posterior tibial artery with a 4 mm x 120 mm Nanocross balloon. * Balloon angioplasty of the left posterior tibial artery with a 2.5-3.0 mm x 120 mm Nanocross balloon. * Balloon angioplasty of the left popliteal artery and tibioperoneal trunk with a 5 mm x 120 mm paclitaxel coated InPact balloon. * Balloon angioplasty of the left mid-level and distal superficial femoral artery with a 5 mm x 120 mm paclitaxel coated InPact balloon (after the drug been deployed in the popliteal artery and tibioperoneal trunk). In the SFA the 5 mm balloon was inflated to 13 himanshu corresponding to a diameter measurement of 5.39 mm. * Closure of the right common femoral artery was achieved with a Minx closure device followed by 15 minutes of gentle manual pressure. Closure of the left posterior tibial artery was achieved with direct manual pressure x20 minutes. 4. Interpretation of interventions performed: * Final arteriography demonstrated widely patent brisk flow through the left superficial femoral artery through the previously occluded left popliteal artery and tibioperoneal trunk and into the infrapopliteal arteries. * Of particular relevance in the presence of a necrotic left great toe there is filling of the pedal loop from the BRYN and branches of the peroneal artery. * The percutaneous access sheath in the left posterior tibial artery occludes flow during this final arteriogram but in-line flow is anticipated in the distal most left posterior tibial artery after the sheath is removed.. Plan: 1. Aspirin 81 mg p.o. daily for life. 2. Plavix 75 mg p.o. daily x 6 months. 3. Clinical and imaging follow-up according to standard Interventional Radiology protocol. 4. The patient will return to his inpatient room to be managed medically by the hospitalist service. 5. The patient had two episodes of emesis while in the care of IR. He received IV zofran 4 mg x 2. I advised Aldo CINTRON that the emesis appeared like "coffee grounds" indicating possible bleed. I advised IV Protonix as discontinuing ASA and Plavix will increase the likelihood of re-occluding the left popliteal artery.
[2018-04-18] MEDS: Insulin GLARGINE(*) 1 UNITS UNIT SUBCUT SCH (18:19)
[2018-04-18] MEDS: Pantoprazole IV* 40 MG IV SCH (21:00)
[2018-04-19] MEDS: Cefepime 2 GM in Dextrose(*) 2 GM/50 ML BAG IV SCH ×2 (00:21→13:27)
[2018-04-19] MEDS: metroNIDAZOLE IV 500 MG/100ML* 500 MG/100 ML BAG IVPB SCH ×2 (01:07→14:22)
[2018-04-19] MEDS: Heparin VIAL(*) 5000 UNITS/ML VIAL (FIVE THOUSAND) SUBCUT SCH ×2 (05:39→14:21)
[2018-04-19 06:38] LABS: ABS Basophils 0.1 10^3/ul (0-0.2); ABS Eosinophils 0.2 10^3/ul (0-0.6); ABS Lymphocytes 0.6 10^3/ul (1.0-4.8); ABS Monocytes 0.8 10^3/ul (0-0.8); ABS Neutrophils 5.5 10^3/ul (1.5-7.7); ABS Nucleated RBC 0 10^3/ul; Eosinophil % 2.3 % (0-6); Hematocrit 40 % (42-52); Lymphocyte % 7.9 % (25-47); Mean Corpuscular HGB Conc 35 g/dl (31-36); Mean Corpuscular Hemoglobin 31 pg (27-31); Mean Corpuscular Volume 89 fL (80-94); Nucleated Red Blood Cells % 0; Platelet Count 160 10^3/ul (150-450); Red Blood Count 4.46 10^6/ul (4.00-5.40); Red Cell Distribution Width 14 % (10.5-15); White Blood Count 7.1 10^3/ul (3.5-10.8)
[2018-04-19 06:57] LABS: EGFR Non-African American 80.8 (>60)
[2018-04-19] MEDS: Sertraline* 100 MG TAB PO SCH (09:11)
[2018-04-19] MEDS: Clopidogrel TAB* 75 MG PO SCH (09:11)
[2018-04-19] MEDS: lamoTRIgine TAB(*) 100 MG PO SCH (09:11)
[2018-04-19] MEDS: Aspirin 81 mg CHEW TAB* 81 MG TAB.CHEW PO SCH (09:11)
[2018-04-19] MEDS: Insulin LISPRO* 1 UNITS UNIT SUBCUT SCH ×2 (09:13→13:28)
[2018-04-19] MEDS: Pantoprazole IV* 40 MG IV SCH (09:13)
--- NOTE | 2018-04-19 10:24 | CONSULT ---
Consult Consult: I saw Price this morning. He had a catheter revascularization yesterday. He tolerated this well. The hallux looks about the same. It is still dusky. There is still the necrotic area medially. The other toes may look a little bit better. We will plan to continue antibiotics for now. We will give the revascularization more time and give the hallux some more time to declare itself or improve. If he is otherwise, ready for discharge, he will followup with me on Saturday for a repeat check of the toes. We discussed concerning symptoms that should prompt a trip to the emergency room earlier than Saturday. Jose Juan King MD
[2018-04-19] MEDS: Insulin GLARGINE(*) 1 UNITS UNIT SUBCUT SCH (13:27)
[2018-04-19 15:23] VITALS: BP 151/81
--- NOTE | 2018-04-21 06:26 | DS ---
DISCHARGE SUMMARY: DATE OF ADMISSION: 04/15/18 DATE OF DISCHARGE: 04/19/18 ADMITTING PROVIDER: Michelle Siu MD ATTENDING PHYSICIAN ON DAY OF DISCHARGE: Sami Nicholson MD CONSULTING INFECTIOUS DISEASE PHYSICIAN: Jamar Pérez MD CONSULTING INTERVENTIONAL RADIOLOGIST: Richardson Kahn MD CONSULTING ORTHOPEDIC SURGEON: Jose Juan King MD PRIMARY CARE PHYSICIAN: Dr. Gabbie Shell. CHIEF COMPLAINT: Left first toe wound with pain and erythema; claudication. PRINCIPAL DIAGNOSES: 1. Critical limb ischemia of the left foot; status post revascularization via Interventional Radiology with Dr. Mahan. 2. Diabetic foot wound. 3. Uncontrolled diabetes mellitus. HISTORY OF PRESENT ILLNESS AND HOSPITAL COURSE: Price Doty is a 62-year-old male with past medical history of insulin dependent (uses insulin pump) diabetes mellitus, tobacco use, coronary artery disease, TIAs, right CVA, essential tremor, depression, septic knee, hypertension, mild traumatic brain injury, who had noticed wounds of his left great toe over the last week with increased redness, swelling, and pain, also had subjective fevers and chills. He also complained of left calf pain with ambulation. He was referred to hospitalist service for admission, started on vancomycin. There was suspicion for peripheral vascular disease. He had an MRI of the left lower extremity without contrast, which showed minimal bone marrow edema noted in the distal phalanx of the great toe, no bone marrow replacement is noted. Abnormal signals likely due to reactive edema, diffuse muscular edema is noted surrounding the foot with no other evidence of osteomyelitis. He had ankle brachial index consistent with arterial insufficiency/qualitatively worse at the left than the right with left posterior tibialis 0.70 and left dorsal pedis 0.61, right posterior tibialis 0.87 and right dorsalis pedis 0.83. He had arterial duplex of the left lower extremity, which showed elevated distal left superficial femoral artery flow velocities corresponding to at least [address] Kishan Pérez of Infectious Disease was consulted and the patient was switched to cefepime and Flagyl. Dr. Mahan of Interventional Radiology performed a complex revascularization procedure on 04/18/18. Please see his note for full details, but briefly there was found to be multifocal stenosis beginning at the midlevel of the left superficial femoral artery culminating with complete occlusion of the left popliteal artery that extends into the left tibioperoneal trunk. There was infrapopliteal artery filled by collateralized flow predominantly via the left geniculate artery. There is multifocal stenosis of the left posterior tibial artery and to the lesser extent the left anterior tibial artery. After failed anterograde revascularization from the right common femoral artery, a retrograde approach from the left posterior tibial artery resulted in a widely patent brisk flow of the left superficial femoral artery to the previously occluded left popliteal artery in the tibioperoneal trunk into the inferior popliteal arteries. There was filling noted in the left pedal loop from the BRYN and branches of the peroneal artery. The patient was started on aspirin 81 mg daily for life and Plavix 75 mg p.o. daily for 6 months. He had an episode of emesis both before and after the procedure, which was suspicious for possible coffee-grounds and started on a Protonix IV given the necessity for the dual antiplatelet unless there be reocclusion of the left popliteal artery. Dr. King followed the patient throughout the admission and is planning on seeing the patient as an outpatient on 04/22/18, to check on the progress of his dusky, necrotic toe as there is concern that even with revascularization, the toe and the forefoot may still be in danger of needing amputation. The patient, of note, did not show any signs of systemic illness. He had no white count, was afebrile. He was continued on the IV antibiotics through the day of discharge and then transitioned tentatively to oral agents, clindamycin and Levaquin until final antibiotic arrangements from Dr. Kishan Pérez can be obtained. Of note, the patient's A1c 2 weeks prior to admission was reportedly 8.1%. He uses insulin pump. The patient was able to ambulate and was stable for discharge. The patient had no growth for 5 days from 2 sets of blood cultures. His initial CRP on admission was 56. He had a lactic acid of 2.2. DISCHARGE MEDICATIONS: Include: 1. Amlodipine 5 mg daily (new). 2. Aspirin 81 mg daily (new). 3. CBD 1 capsule p.o. q.6 hours p.r.n. 4. Clindamycin 300 mg p.o. t.i.d. for 10 days (new). 5. Plavix 75 mg p.o. daily (for at least 6 months, new). 6. Docusate 100 mg p.o. b.i.d. 40 tabs (new). 7. Glipizide 10 mg p.o. daily. 8. Lamictal 200 mg p.o. daily. 9. Levaquin 750 mg p.o. daily for 10 days (new). 10. Metformin 1000 mg p.o. b.i.d. 11. Nicotine patch 14 mg transdermal patch daily (new). 12. Sertraline 100 mg p.o. daily. 13. Insulin Lispro per insulin pump. DISCHARGE DIET: Heart-healthy, consistent carbohydrates. ACTIVITY LEVEL: No restrictions. Weightbearing as tolerated on the left forefoot/toe. FOLLOWUP: The patient is going to follow up with Dr. King on 04/22/18, 3 days after discharge. He also should call the office of Dr. Kishan Pérez to schedule outpatient followup and get final recommendations for his antibiotic use. Attempts were made to clarify with Dr. Kishan Pérez prior to discharge, but not available by phone. The patient should follow up with his primary care provider, Dr. Gabbie Shell within 7 days of discharge. He is also given a card for the [facility] if Dr. Shell or associates are not available. TIME SPENT ON DISCHARGE: 45 minutes. [id number]/[facility] #: [id number] [facility]
--- NOTE | 2018-04-25 16:29 | PN ---
Subjective Date of Service: 04/16/18 Interval History: Patient seen and examined, states pain and claudication in the calf, denies fever or chills, states toe wound looking worse/larger. No SOB, no chest pain. Family History: Unchanged from Admission Social History: Unchanged from Admission Past Medical History: Unchanged from Admission Objective Oxygen Devices in Use Now: None Appearance: Alert, NAD Eyes: No Scleral Icterus, PERRLA Ears/Nose/Mouth/Throat: NL Teeth, Lips, Gums, Clear Oropharnyx Neck: NL Appearance and Movements; NL JVP, Trachea Midline Respiratory: Symmetrical Chest Expansion and Respiratory Effort, Clear to Auscultation Cardiovascular: NL Sounds; No Murmurs; No JVD, RRR Abdominal: NL Sounds; No Tenderness; No Distention Extremities: - - foot edema increasing Neurological: Alert and Oriented x 3, NL Sensation Nutrition: Taking PO's Result Diagrams: 04/19/18 06:25 04/19/18 06:25 Additional Lab and Data: Lab Results 04/14/18 04/14/18 04/14/18 Range/Units 20:49 20:49 20:49 WBC 7.2 (3.5-10.8) 10^3/ul RBC 4.78 (4.00-5.40) 10^6/ul Hgb 14.8 (14.0-18.0) g/dl Hct 43 (42-52) % MCV 90 (80-94) fL MCH 31 (27-31) pg MCHC 34 (31-36) g/dl RDW 14 (10.5-15) % Plt Count 183 (150-450) 10^3/ul MPV 7.3 L (7.4-10.4) um3 Neut % (Auto) 78.4 (38-83) % Lymph % (Auto) 8.5 L (25-47) % Branch % (Auto) 10.2 H (0-7) % Eos % (Auto) 1.6 (0-6) % Baso % (Auto) 1.3 (0-2) % Absolute Neuts (auto) 5.6 (1.5-7.7) 10^3/ul Absolute Lymphs (auto) 0.6 L (1.0-4.8) 10^3/ul Absolute Monos (auto) 0.7 (0-0.8) 10^3/ul Absolute Eos (auto) 0.1 (0-0.6) 10^3/ul Absolute Basos (auto) 0.1 (0-0.2) 10^3/ul Absolute Nucleated RBC 0 10^3/ul Nucleated RBC % 0.1 Sodium 134 L (135-145) mmol/L Potassium 4.0 (3.5-5.0) mmol/L Chloride 96 L (101-111) mmol/L Carbon Dioxide 29 (22-32) mmol/L Anion Gap 9 (2-11) mmol/L BUN 15 (6-24) mg/dL Creatinine 1.07 (0.67-1.17) mg/dL Est GFR ( Amer) 84.2 (>60) Est GFR (Non-Af Amer) 69.6 (>60) BUN/Creatinine Ratio 14.0 (8-20) Glucose 342 H (70-100) mg/dL Lactic Acid 2.2 H* (0.5-2.0) mmol/L Calcium 9.7 (8.6-10.3) mg/dL Total Bilirubin 0.50 (0.2-1.0) mg/dL AST 12 L (13-39) U/L ALT 11 (7-52) U/L Alkaline Phosphatase 66 (34-104) U/L C-Reactive Protein 56.04 H (<8.01) mg/L Total Protein 7.0 (6.4-8.9) g/dL Albumin 3.6 (3.2-5.2) g/dL Globulin 3.4 (2-4) g/dL Albumin/Globulin Ratio 1.1 (1-3) Microbiology and Other Data: Microbiology 04/14/18 20:48 Aerobic Blood Culture - Preliminary Blood Venous No Growth Day 2 Anaerobic Blood Culture - Preliminary No Growth Day 2 04/14/18 20:48 Aerobic Blood Culture - Preliminary Blood Venous No Growth Day 2 Anaerobic Blood Culture - Preliminary No Growth Day 2 Diagnostic Imaging: . EKG Data: . Assess/Plan/Problems-Billing Assessment: This is a 62 year old male patient with history of DM, PAD and chronic foot wounds that has presented with necrotic left great toe with surrounding dry gangrene, who is in need of orthopedic evaluation and arterial revascularization. - Patient Problems (1) Non-healing open wound of toe Code(s): S91.109A - UNSP OPEN WOUND OF UNSP TOE(S) W/O DAMAGE TO NAIL, INIT SNOMED Code(s): 173225063 Comment: - Likely 2/2 PAD and DM - MRI foot did not show definite evidence of osteo. - ABIs and arterial dopplers complete, revascularization planned for this week with Dr. Armenta. - Continue cefepime and metronidazole - May still need partial or total big toe amputation, awit orthopedic recommendation (2) Peripheral arterial disease Code(s): I73.9 - PERIPHERAL VASCULAR DISEASE, UNSPECIFIED SNOMED Code(s): 606468559 Comment: - Positive for claudication per patient report - Vascular studies as above with ABIs - Dr. Mahan following (3) Diabetes mellitus Code(s): E11.9 - TYPE 2 DIABETES MELLITUS WITHOUT COMPLICATIONS SNOMED Code(s) : 51078705 Comment: - Continue lantus and lispro SS and adjust based on sugars (4) DVT prophylaxis Code(s): LCS2659 - SNOMED Code(s): 521838452 Comment: - SQ heparin (5) Full code status Code(s): Z78.9 - OTHER SPECIFIED HEALTH STATUS SNOMED Code(s): 529080890 Status and Disposition: Remain inpatient, DC home vs rehab after procedures complete.
== END 2018-04-19 17:15 | disposition home or self-care (01) | DRG 271 ==
LOC: ED 19:57 → MED 04-15 00:32
PROVIDERS: ADMIT Pediatrics; ATTEND Internal Medicine
PROC: 04CT3ZZ Extirpation of Matter from Right Peroneal Artery, Percutaneous Approach (ICD-10-PCS; 2018-04-18)
PROC: 047K3ZZ Dilation of Right Femoral Artery, Percutaneous Approach (ICD-10-PCS; 2018-04-18)
PROC: 047R3ZZ Dilation of Right Posterior Tibial Artery, Percutaneous Approach (ICD-10-PCS; 2018-04-18)
PROC: 047T3ZZ Dilation of Right Peroneal Artery, Percutaneous Approach (ICD-10-PCS; 2018-04-18)
PROC: 04CM3ZZ Extirpation of Matter from Right Popliteal Artery, Percutaneous Approach (ICD-10-PCS; 2018-04-18)
PROC: 04CK3ZZ Extirpation of Matter from Right Femoral Artery, Percutaneous Approach (ICD-10-PCS; 2018-04-18)
PROC: B41FYZZ Fluoroscopy of Right Lower Extremity Arteries using Other Contrast (ICD-10-PCS; 2018-04-18)
PROC: 047M3ZZ Dilation of Right Popliteal Artery, Percutaneous Approach (ICD-10-PCS; principal; 2018-04-18 12:30)
DX: E11.52 Type 2 diabetes mellitus with diabetic peripheral angiopathy with gangrene (principal); L97.528 Non-pressure chronic ulcer of other part of left foot with other specified severity; I70.262 Atherosclerosis of native arteries of extremities with gangrene, left leg; E11.621 Type 2 diabetes mellitus with foot ulcer; L97.519 Non-pressure chronic ulcer of other part of right foot with unspecified severity; I25.10 Atherosclerotic heart disease of native coronary artery without angina pectoris; I10 Essential (primary) hypertension; E78.5 Hyperlipidemia, unspecified; R40.2142 Coma scale, eyes open, spontaneous, at arrival to emergency department; R40.2362 Coma scale, best motor response, obeys commands, at arrival to emergency department; R40.2252 Coma scale, best verbal response, oriented, at arrival to emergency department; G25.0 Essential tremor; F17.210 Nicotine dependence, cigarettes, uncomplicated; F32.9 Major depressive disorder, single episode, unspecified; E11.40 Type 2 diabetes mellitus with diabetic neuropathy, unspecified; L03.031 Cellulitis of right toe; Z86.73 Personal history of transient ischemic attack (TIA), and cerebral infarction without residual deficits; Z98.1 Arthrodesis status; Z83.3 Family history of diabetes mellitus
CPT/HCPCS: 36415; 75736; 76937; 80048; 80053; 80202; 82947; 83605; 85025; 85347; 86140; 87040; 93922; 99156; 99157; 99284; A9270-GY; C1724; C1725; C1760; C1769; C1887; C1894; J0692; J1644; J2250; J2405; J3010; J3370; J3490

== ENCOUNTER 2018-04-24 08:05 | Day surgery (SDC) | payer OTHER, MEDICARE ==
[~2018-04-24 08:05] MED LIST: Buffered Lidocaine 0.9% SYRIN* 5 ML/SYR SYRINGE INTRADERM ONE; Famotidine IV* 10 MG/ML 2 ML (20 mg) IV ONE
[2018-04-24] MEDS ORDERED: Famotidine IV* 10 MG/ML 2 ML (20 mg) ONE (08:10)
[2018-04-24] MEDS ORDERED: ceFAZolin 2 GM PREMIX (*) 2 GM/50 ML BAG IVPB ONE (08:11)
[2018-04-24] MEDS ORDERED: Insulin LISPRO* 1 UNITS UNIT SUBCUT ONE ×2 (08:44→12:35)
[2018-04-24] MEDS ORDERED: fentaNYL* 50 MCG/ML 2 ML VIAL (100 MCG VIAL) ONE (11:06)
[2018-04-24] MEDS ORDERED: Midazolam* 1 MG/ML 5 ML VIAL (5 MG) ONE (11:06)
[2018-04-24] MEDS ORDERED: Bupivacaine 0.25% SDV PF* 10 ML VIAL INJ ONE (11:19)
[2018-04-24] MEDS ORDERED: HYDROcodone/ACETAMIN 5-325 MG* 1 TAB PO PRN (11:23)
[2018-04-24] MEDS ORDERED: fentaNYL* 50 MCG/ML 2 ML VIAL (100 MCG VIAL) IV PRN (11:23)
[2018-04-24] MEDS ORDERED: oxyCODONE/Acetamin 5/325 MG* TAB PO PRN (11:23)
[2018-04-24] MEDS ORDERED: Naloxone* 0.4 MG/ML 1 ML VIAL IV PRN (11:23)
[2018-04-24] MEDS ORDERED: PROCHLORPERAZINE INJ 5 MG/ML 2 ML VIAL IV PRN (11:23)
[2018-04-24] MEDS ORDERED: Labetalol IV* 5 MG/ML 20 ML VIAL ONE (11:48)
--- NOTE | 2018-04-24 12:27 | OP ---
Operative Report - Blank - Operative Report Date of Operation: 04/24/18 Note: PATIENT: Price Doty DATE OF : 1955 DATE OF SURGERY: 04/24/2018 SURGEON: Jose Juan King MD SYSTEMS DEVELOPMENT MANAGER: SAIDA Rea, whos assistance was necessary for positioning, retraction, help with instrumentation, and closure. ANESTHESIOLOGIST: Dr. Louis PREOPERATIVE DIAGNOSIS: Left great toe gangrene and osteomyelitis POSTOPERATIVE DIAGNOSIS: Left great toe gangrene and osteomyelitis OPERATION: Left great toe amputation ANESTHESIA: MAC IMPLANTS: none TOURNIQUET TIME: none SPECIMENS: Toe to pathology ESTIMATED BLOOD LOSS: minimal COMPLICATIONS: none STATUS: Stable from the operating room to the recovery room. INDICATIONS FOR PROCEDURE: Price has left great toe gangrene with infection and osteomyelitis. He recently underwent interventional revascularization of the left lower extremity. Both operative and non operative treatment alternatives were reviewed. Further, the nature and risks of surgery were reviewed in careful detail. Our discussions regarding the risks of surgery included, but were not limited to, wound infection, wound problems, nerve injury, neuroma, RSD, persistent symptoms, blood clot, persistent or worsening infection, failure of the surgery, need for further amputation, and even the remote chance of catastrophic complication, including loss of limb. DESCRIPTION OF PROCEDURE: The patient was seen in the preoperative holding unit and informed written consent was obtained. The appropriate extremity was marked. The patient was then brought to the operating room and carefully positioned on the operating room table. Anesthesia was induced. All bony prominences were padded with great care. A chlorhexidine based pre-scrub was performed followed by a chloraprep prep and drape in standard sterile fashion. A surgical safety pause was then conducted in which we confirmed the appropriate patient, extremity, planned procedure, availability of equipment, indication and administration of antibiotics, and DVT prophylaxis in the form of a compression boot on the non- surgical extremity. I made an incision to remove the distal aspect of the toe. I maintained as much healthy soft-tissue length as was possible. The phalanges were dissected out and the toe was amputated at the level of the mid-proximal phalanx by utilizing an oscillating saw. The toe was then sent to pathology. The remaining soft tissues were healthy appearing. There was no purulence expressed from more proximal. We then irrigated copiously. The skin edges were pink. We closed with 3-0 monocryl and then 3-0 nylon and then placed a sterile dressing. The patient was then awakened from anesthesia and transferred to the recovery room in stable condition. There were no complications. All needle and sponge counts were correct at the end of the case. ATTESTATION: I attest I was present and scrubbed and performed the critical portions of the procedure myself. POSTOPERATIVE PLAN: The patient may be heel weight-bearing in a post-operative shoe and will follow up will be in 1 week for a wound check, but we will likely leave the sutures in for 3 weeks. Antibiotic treatment will be guided by the infectious disease service.
[2018-04-24] MEDS ORDERED: oxyCODONE/Acetamin 5/325 MG* TAB ONE (13:20)
[2018-04-24 13:38] VITALS: BP 147/75
== END 2018-04-24 13:56 | disposition home or self-care (01) ==
LOC: OR 08:05
PROVIDERS: ATTEND Orthopaedic Surgery
DX: M86.172 Other acute osteomyelitis, left ankle and foot (principal); E11.52 Type 2 diabetes mellitus with diabetic peripheral angiopathy with gangrene; Z79.84 Long term (current) use of oral hypoglycemic drugs; F17.210 Nicotine dependence, cigarettes, uncomplicated; Z86.73 Personal history of transient ischemic attack (TIA), and cerebral infarction without residual deficits; R25.1 Tremor, unspecified; I10 Essential (primary) hypertension; Z87.820 Personal history of traumatic brain injury; I25.10 Atherosclerotic heart disease of native coronary artery without angina pectoris; I73.9 Peripheral vascular disease, unspecified
CPT/HCPCS: 88305; 88311; A9270-GY; J0690; J2250; J3010; J3490

== ENCOUNTER 2018-05-27 16:11 | Inpatient (IN) | payer OTHER, MEDICARE ==
[2018-05-27] MEDS ORDERED: Acetaminophen TAB* 325 MG PO PRN (16:20)
[2018-05-27] MEDS ORDERED: diPHENhydraMINE IV* 50 MG/ML 1 ml VIAL (BENADRYL) IV PRN (16:26)
[2018-05-27] MEDS ORDERED: Ondansetron INJ* 2 MG/ML VIAL IV PRN (16:26)
--- OUTSIDE RECORDS SUMMARY | 2018-05-27 17:06 | XMS REPORT ---
:1955 External Reference #:[id number] Author Organization [employer] Address [address] [facility] [place] [address] [place] [address] Phone [phone] Care Team Providers Name Role Phone Gabbie Shell MD Primary Care Physician Unavailable Payers Type Date Identification Numbers Payment Provider Subscriber Commercial Effective: Policy Number: [id number] salome-[facility] Maryam Guardado 2010 PayID: [id number] [address] [place] [address] Medigap Part B Policy Number: [id number] Medicare Price Guardado PayID: [id number] [address] [place] [address] Medigap Part B Expires: 2018 Policy Number: [employer] Maryam Waterman [id number] Debby Group Number: [id number] [address] PayID: [id number] [place] [address] Workers Compensation Onset: 2015 Policy Number: Jorden Price Guardado [id number] Group Number: [id number] [address] PayID: [id number] [place] [address] Problems Date Description Provider Status Onset: 04/24/2018 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 Onset: 04/22/2018 Acute osteomyelitis of ankle Jose Juan King MD Active and/or foot Onset: 04/16/2018 Type 2 diabetes w diabetic Steffanie Bradley NP Active 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 Onset: 04/16/2018 Peripheral vascular disease Steffanie Bradley NP Active Social History Type Date Description Comments Smoking Patient is a current smoker, smokes every day 1 ppd x 45 yrs Allergies, Adverse Reactions, Alerts Date Description Reaction Status Severity Comments 05/12/2013 NKDA active Medications Medication Date Status Form Strength Qnty SIG Indications Ordering Provider Keflex 05/05/ Active Capsules 250mg 30caps Take 1 [facility] 2018 capsule chanell King MD Oxycodone HCL 04/24/ Active Tablets 5mg 15tabs 1 tab [facility] 2018 every 4-6 jose King as MD needed for pain mdd 4 Metformin HCL / Active Tablets 1000mg 180tab 1 po bid Unknown 0000 s Zoloft / Active 100mg 2 po Unknown 0000 daily Lamictal / Active Tablets 200mg 1 by Unknown 0000 mouth twice daily Lisinopril / Active Tablets 20mg 1 by Unknown 0000 mouth every day Glipizide / Active Tablets 5mg 1 by Unknown 0000 mouth once a day Glucotrol XL / Active Tablets ER 10mg Unknown 0000 24HR Humalog / Active Unknown 0000 Clindamycin HCL 05/02/ Hx Capsules 300mg 30caps Take 1 [facility] 2017 - Capsule Fernando, 05/07/ By Mouth 2017 Three Times Daily Clindamycin HCL 11/01/ Hx Capsules 300mg 90caps 1 tabs by Jamar Jordan 2015 - mouth 3 Macqueen, 01/03/ times a M.D. 2015 day Lamictal 05/13/ Hx Tablets 25mg Paul Macario 2012 - Dori, 05/13/ M.D. 2012 Lamictal 05/13/ Hx Tablets 100mg 90tabs 1 and 12 Paul Macario 2012 - malika and Dori, 10/26/ /2 qhs M.D. 2015 for 2 wks then 1 and /2 qam and 1 qhs for 2 wks then 1 and 1/2 bid Lantus Solostar / Hx Solution 100Unit/ML 5units inject 50 Unknown 0000 - units sc 04/21/ in 2018 morning, inject 7 units sc at hs Bupropion HCL / Hx Tablets ER 300mg 1 by Unknown ER (XL) 0000 - 24HR mouth 04/21/ every day 2018 Lamictal 00/00/ Hx (?) 1 po Unknown 0000 - daily 2012 Lipitor /00/ Hx Tablets 20mg 90tabs one tab Unknown 0000 - po qhs 2015 Aspirin 00/00/ Hx 325mg 1 tab po Unknown 0000 - daily 2015 Clindamycin HCL 00/00/ Hx Capsules 300mg 1 capsule Unknown 0000 - by mouth 2016 times a day Cefazolin 0000/ Hx Solution 1gm 2 gm iv Unknown Sodium 0000 - Rec every 17/ hours 2016 Percocet 0000/ Hx Tablets 5-325mg 1 by Unknown 0000 - mouth 04/21/ every 2018 hours as needed pain Bentyl 00/ Hx Capsules 10mg take 1 Unknown 0000 - tablet by 2015 with every meal Tramadol HCL 00/ Hx Tablets 50mg 1 tablets Unknown 0000 - every 04/06/ hours as 2016 needed Levofloxacin /00/ Hx Tablets 750mg Take 1 Unknown 0000 - Tablet By Mouth 2017 Every Day Clindamycin HCL 00/00/ Hx Capsules 300mg Take 1 Unknown 0000 - Capsule 04/21/ By Mouth 2017 Three Times Daily Metronidazole /00/ Hx Tablets 500mg Take 1 Unknown 0000 - Tablet By 04/21/ Mouth 2017 Three Times Daily Vital Signs Date Vital Result Comment 05/20/2018 Height 67 inches 5'7" Weight 183.00 lb Heart Rate 88 /min BP Systolic Sitting 112 mmHg BP Diastolic Sitting 72 mmHg Body Temperature 97.4 F Pain Level 0 BMI (Body Mass Index) 28.7 kg/m2 05/09/2018 Height 66 inches 5'6" Weight 182.00 lb Heart Rate 88 /min BP Systolic Sitting 148 mmHg BP Diastolic Sitting 80 mmHg Body Temperature 97.3 F BMI (Body Mass Index) 29.4 kg/m2 05/08/2018 Height 66 inches 5'6" Weight 184.00 lb Heart Rate 86 /min BP Systolic Sitting 102 mmHg BP Diastolic Sitting 64 mmHg Respiratory Rate 14 /min Body Temperature 97.3 F BMI (Body Mass Index) 29.7 kg/m2 05/02/2018 Height 66 inches 5'6" Weight 192.00 lb Heart Rate 84 /min BP Systolic Sitting 110 mmHg BP Diastolic Sitting 68 mmHg Body Temperature 99.3 F Pain Level 0 BMI (Body Mass Index) 31.0 kg/m2 04/22/2018 Height 66 inches 5'6" Weight 192.00 lb Heart Rate 92 /min Respiratory Rate 20 /min Body Temperature 20.0 F Pain Level 1 BMI (Body Mass Index) 31.0 kg/m2 01/05/2016 Height 66 inches 5'6" Weight 200.00 lb Body Temperature 96.7 F Pain Level 0 BMI (Body Mass Index) 32.3 kg/m2 11/30/2015 Height 66 inches 5'6" Weight 191.00 lb Heart Rate 84 /min BP Systolic Sitting 106 mmHg BP Diastolic Sitting 60 mmHg Respiratory Rate 14 /min Body Temperature 96.9 F BMI (Body Mass Index) 30.8 kg/m2 11/16/2015 Height 66 inches 5'6" Weight 200.00 lb Heart Rate 84 /min BP Systolic Sitting 124 mmHg BP Diastolic Sitting 82 mmHg Respiratory Rate 14 /min Body Temperature 98.2 F BMI (Body Mass Index) 32.3 kg/m2 11/11/2015 Height 66 inches 5'6" Weight 200.00 lb Respiratory Rate 18 /min Pain Level 0 BMI (Body Mass Index) 32.3 kg/m2 11/03/2015 Height 66 inches 5'6" Weight 203.00 lb Heart Rate 96 /min BP Systolic Sitting 130 mmHg BP Diastolic Sitting 72 mmHg Respiratory Rate 16 /min Body Temperature 97.7 F BMI (Body Mass Index) 32.8 kg/m2 10/28/2015 Height 66 inches 5'6" Weight 195.00 lb Body Temperature 97.1 F BMI (Body Mass Index) 31.5 kg/m2 07/29/2013 Heart Rate 76 /min BP Systolic Sitting 118 mmHg BP Diastolic Sitting 82 mmHg Pain Level 18 05/12/2013 Heart Rate 84 /min BP Systolic Sitting 148 mmHg BP Diastolic Sitting 84 mmHg Respiratory Rate 16 /min Results Test Date Test Result H/L Range Note Laboratory test 04/24/2018 Surgical Pathology SEE RESULT BELOW 1 finding Laboratory test 04/24/2018 Point of Care 234 mg/dL High 70-100 2 finding Glucose Laboratory test 04/24/2018 Point of Care 232 mg/dL High 70-100 3 finding Glucose Laboratory test 04/24/2018 Point of Care 281 mg/dL High 70-100 4 finding Glucose Laboratory test 04/24/2018 Point of Care 331 mg/dL High 70-100 5 finding Glucose Comp Metabolic Panel 11/14/2015 Sodium 135 mmol/L 133-145 Potassium 5.0 mmol/L 3.5-5.0 Chloride 101 mmol/L 101-111 Co2 Carbon Dioxide 27 mmol/L 22-32 Anion Gap 7 mmol/L 2-11 Glucose 192 mg/dL High 70-100 Blood Urea Nitrogen 16 mg/dL 6-24 Creatinine 0.88 mg/dL 0.67-1.17 BUN/Creatinine Ratio 18.2 8-20 Calcium 8.7 mg/dL 8.6-10.3 Total Protein 6.0 g/dL Low 6.4-8.9 Albumin 3.4 g/dL 3.2-5.2 Globulin 2.6 g/dL 2-4 Albumin/Globulin Ratio 1.3 1-3 Total Bilirubin 0.20 mg/dL 0.2-1.0 Alkaline Phosphatase 69 U/L 34-104 Alt 4 U/L Low 7-52 Ast 12 U/L Low 13-39 Egfr Non- 87.8 >60 Egfr 112.9 >60 6 Laboratory test finding 11/14/2015 C Reactive Protein 2.79 mg/L < 5.00 7 CBC Auto Diff 11/14/2015 White Blood Count 8.0 10^3/uL 3.5-10.8 Red Blood Count 4.22 10^6/uL 4.0-5.4 Hemoglobin 11.8 g/dL Low 14.0-18.0 Hematocrit 36 % Low 42-52 Mean Corpuscular Volume 84 fL 80-94 Mean Corpuscular Hemoglobin 28 pg 27-31 Mean Corpuscular HGB Conc 33 g/dL 31-36 Red Cell Distribution Width 14 % 10.5-15 Platelet Count 150 10^3/uL 150-450 Mean Platelet Volume 8 um3 7.4-10.4 Abs Neutrophils 5.8 10^3/uL 1.5-7.7 Abs Lymphocytes 1.0 10^3/uL 1.0-4.8 Abs Monocytes 0.7 10^3/uL 0-0.8 Abs Eosinophils 0.5 10^3/uL 0-0.6 Abs Basophils 0.1 10^3/uL 0-0.2 Abs Nucleated RBC 0.01 10^3/uL Granulocyte % 72.4 % 38-83 Lymphocyte % 12.0 % Low 25-47 Monocyte % 8.6 % 1-9 Eosinophil % 6.0 % 0-6 Basophil % 1.0 % 0-2 Nucleated Red Blood Cells % 0.1 Laboratory test finding 11/14/2015 Erythrocyte Sed Rate 66 mm/Hr High 0- 20 Comp Metabolic Panel 11/08/2015 Sodium 135 mmol/L 133-145 Potassium 5.1 mmol/L High 3.5-5.0 Chloride 101 mmol/L 101-111 Co2 Carbon Dioxide 27 mmol/L 22-32 Anion Gap 7 mmol/L 2-11 Glucose 307 mg/dL High 70-100 Blood Urea Nitrogen 12 mg/dL 6-24 Creatinine 0.93 mg/dL 0.67-1.17 BUN/Creatinine Ratio 12.9 8-20 Calcium 9.0 mg/dL 8.6-10.3 Total Protein 6.3 g/dL Low 6.4-8.9 Albumin 3.6 g/dL 3.2-5.2 Globulin 2.7 g/dL 2-4 Albumin/Globulin Ratio 1.3 1-3 Total Bilirubin 0.20 mg/dL 0.2-1.0 Alkaline Phosphatase 89 U/L 34-104 Alt 5 U/L Low 7-52 Ast 13 U/L 13-39 Egfr Non- 82.3 >60 Egfr 105.9 >60 8 Laboratory test finding 11/08/2015 C Reactive Protein 4.89 mg/L < 5.00 9 CBC Auto Diff 11/08/2015 White Blood Count 7.3 10^3/uL 3.5-10.8 Red Blood Count 4.45 10^6/uL 4.0-5.4 Hemoglobin 12.3 g/dL Low 14.0-18.0 Hematocrit 38 % Low 42-52 Mean Corpuscular Volume 84 fL 80-94 Mean Corpuscular Hemoglobin 28 pg 27-31 Mean Corpuscular HGB Conc 33 g/dL 31-36 Red Cell Distribution Width 14 % 10.5-15 Platelet Count 184 10^3/uL 150-450 Mean Platelet Volume 8 um3 7.4-10.4 Abs Neutrophils 5.4 10^3/uL 1.5-7.7 Abs Lymphocytes 0.9 10^3/uL Low 1.0-4.8 Abs Monocytes 0.6 10^3/uL 0-0.8 Abs Eosinophils 0.3 10^3/uL 0-0.6 Abs Basophils 0.1 10^3/uL 0-0.2 Abs Nucleated RBC 0.04 10^3/uL Granulocyte % 74.1 % 38-83 Lymphocyte % 12.3 % Low 25-47 Monocyte % 8.4 % 1-9 Eosinophil % 4.2 % 0-6 Basophil % 1.0 % 0-2 Nucleated Red Blood Cells % 0.6 Laboratory test finding 11/08/2015 Erythrocyte Sed Rate 77 mm/Hr High 0- 20 Laboratory test finding 10/31/2015 Erythrocyte Sed Rate 95 mm/Hr High 0- 20 CBC Auto Diff 10/31/2015 White Blood Count 9.1 10^3/uL 3.5-10.8 Red Blood Count 4.36 10^6/uL 4.0-5.4 Hemoglobin 12.3 g/dL Low 14.0-18.0 Hematocrit 36 % Low 42-52 Mean Corpuscular Volume 82 fL 80-94 Mean Corpuscular Hemoglobin 28 pg 27-31 Mean Corpuscular HGB Conc 35 g/dL 31-36 Red Cell Distribution Width 14 % 10.5-15 Platelet Count 228 10^3/uL 150-450 Mean Platelet Volume 8 um3 7.4-10.4 Abs Neutrophils 6.8 10^3/uL 1.5-7.7 Abs Lymphocytes 1.1 10^3/uL 1.0-4.8 Abs Monocytes 0.8 10^3/uL 0-0.8 Abs Eosinophils 0.4 10^3/uL 0-0.6 Abs Basophils 0.1 10^3/uL 0-0.2 Abs Nucleated RBC 0.01 10^3/uL Granulocyte % 74.6 % 38-83 Lymphocyte % 11.6 % Low 25-47 Monocyte % 8.8 % 1-9 Eosinophil % 4.4 % 0-6 Basophil % 0.6 % 0-2 Nucleated Red Blood Cells % 0.1 Laboratory test finding 10/31/2015 C Reactive Protein 9.73 mg/L High < 5.00 10 Comp Metabolic Panel 10/31/2015 Sodium 134 mmol/L 133-145 Potassium 4.3 mmol/L 3.5-5.0 Chloride 100 mmol/L Low 101-111 Co2 Carbon Dioxide 27 mmol/L 22-32 Anion Gap 7 mmol/L 2-11 Glucose 140 mg/dL High 70-100 Blood Urea Nitrogen 19 mg/dL 6-24 Creatinine 0.96 mg/dL 0.67-1.17 BUN/Creatinine Ratio 19.8 8-20 Calcium 8.6 mg/dL 8.6-10.3 Total Protein 6.3 g/dL Low 6.4-8.9 Albumin 3.4 g/dL 3.2-5.2 Globulin 2.9 g/dL 2-4 Albumin/Globulin Ratio 1.2 1-3 Total Bilirubin 0.30 mg/dL 0.2-1.0 Alkaline Phosphatase 96 U/L 34-104 Alt 5 U/L Low 7-52 Ast 13 U/L 13-39 Egfr Non- 79.4 >60 Egfr 102.1 >60 11 CBC Auto Diff 10/24/2015 White Blood Count 10.3 10^3/uL 3.5-10.8 Red Blood Count 4.23 10^6/uL 4.0-5.4 Hemoglobin 11.9 g/dL Low 14.0-18.0 Hematocrit 35 % Low 42-52 Mean Corpuscular Volume 84 fL 80-94 Mean Corpuscular Hemoglobin 28 pg 27-31 Mean Corpuscular HGB Conc 34 g/dL 31-36 Red Cell Distribution Width 14 % 10.5-15 Platelet Count 203 10^3/uL 150-450 Mean Platelet Volume 8 um3 7.4-10.4 Abs Neutrophils 8.3 10^3/uL High 1.5-7.7 Abs Lymphocytes 0.7 10^3/uL Low 1.0-4.8 Abs Monocytes 0.9 10^3/uL High 0-0.8 Abs Eosinophils 0.3 10^3/uL 0-0.6 Abs Basophils 0.1 10^3/uL 0-0.2 Abs Nucleated RBC 0 10^3/uL Granulocyte % 80.4 % 38-83 Lymphocyte % 7.0 % Low 25-47 Monocyte % 8.7 % 1-9 Eosinophil % 3.3 % 0-6 Basophil % 0.6 % 0-2 Nucleated Red Blood Cells % 0 Comp Metabolic Panel 10/24/2015 Sodium 136 mmol/L 133-145 Potassium 4.9 mmol/L 3.5-5.0 Chloride 102 mmol/L 101-111 Co2 Carbon Dioxide 27 mmol/L 22-32 Anion Gap 7 mmol/L 2-11 Glucose 215 mg/dL High 70-100 Blood Urea Nitrogen 15 mg/dL 6-24 Creatinine 1.05 mg/dL 0.67-1.17 BUN/Creatinine Ratio 14.3 8-20 Calcium 8.9 mg/dL 8.6-10.3 Total Protein 6.4 g/dL 6.4-8.9 Albumin 3.6 g/dL 3.2-5.2 Globulin 2.8 g/dL 2-4 Albumin/Globulin Ratio 1.3 1-3 Total Bilirubin 0.30 mg/dL 0.2-1.0 Alkaline Phosphatase 104 U/L 34-104 Alt 6 U/L Low 7-52 Ast 15 U/L 13-39 Egfr Non- 71.6 >60 Egfr 92.0 >60 12 Laboratory test 10/24/2015 C Reactive Protein 15.74 mg/L High < 5.00 13 finding Laboratory test 10/13/2015 Point of Care 150 mg/dL High 74-106 14 finding Glucose Laboratory test 10/13/2015 Wound Culture/Sensi SEE RESULT BELOW 15 finding Tissue (BX) Culture & Gram St SEE RESULT BELOW 16 MRSA/S. aureus Ssti PCR SEE RESULT BELOW 17 Anaerobic Culture SEE RESULT BELOW 18 Laboratory test finding 10/13/2015 Wound Culture/Sensi SEE RESULT BELOW 19 Tissue (BX) Culture & Gram St SEE RESULT BELOW 20 MRSA/S. aureus Ssti PCR SEE RESULT BELOW 21 Anaerobic Culture SEE RESULT BELOW 22 Laboratory test finding 10/13/2015 Wound Culture/Sensi SEE RESULT BELOW 23 Tissue (BX) Culture & Gram St SEE RESULT BELOW 24 MRSA/S. aureus Ssti PCR SEE RESULT BELOW 25 Anaerobic Culture SEE RESULT BELOW 26 Laboratory test finding 10/13/2015 Wound Culture/Sensi SEE RESULT BELOW 27 Tissue (BX) Culture & Gram St SEE RESULT BELOW 28 MRSA/S. aureus Ssti PCR SEE RESULT BELOW 29 Anaerobic Culture SEE RESULT BELOW 30 Laboratory test finding 10/13/2015 Mycobacterial Culture See Comment 31 1 SEE RESULT BELOW Name: PRICE GUARDADO : [address]: Jose Juan King MD Acct: [id number] Unit: [id number] AGE: 62 Location: OR Re04/24/18 SEX: M Status: DEP [facility] SPEC: [id number] GABO: 04/24/18- SUBM DR: Jose Juan King MD REQ: [id number] RECD: 04/24/18 STATUS: SOUT _ ORDERED: Decal, LEVEL 4 FINAL DIAGNOSIS Left great toe, amputation: -- Suppurative gangrenous necrosis with abscess formation. -- Soft tissue margins of resection are viable. -- No evidence of acute osteomyelitis. PRE-OPERATIVE DIAGNOSIS Left hallux gangrene with infection GROSS DESCRIPTION The specimen is received in formalin labeled, Left Great Toe, and consists of a 4.3 x 3.2 by up to 2.2 cm disarticulated digit partially surfaced by a chavez-white unguis. The margin of resection appears viable. The specimen is partially surface by a black desiccated to scabrous lesion measuring up to 3.6 cm, 0.2 cm from the dorsal skin margin. The remaining skin is chavez-pink wrinkled and scaly. The subcutaneous tissue is focally erythematous. The specimen is inked as follows: dorsal margin blue and plantar margin black, and computer help desk representative sections are submitted in cassettes A and B to include bone following decalcification in cassette A. Signed by and Reported on: Abby Ellis MD 04/29/18 1052 END OF REPORT DEPARTMENT OF PATHOLOGY, [address] [place] [address] Vinayak Yanez M.D. Director [facility] # [id number] 2 Senior Windows Administrator: [id number] 3 Senior Windows Administrator: [id number] 4 Senior Windows Administrator: [id number] 5 Senior Windows Administrator: [id number] 6 Because ethnic data is not always readily available, this report includes an eGFR for both -Americans and non- Americans. The National Kidney Disease Education Program (NKDEP) does not endorse the use of the MDRD equation for patients that are not between the ages of 18 and 70, are , have extremes of body size, muscle mass, or nutritional status, or are non- or non-. According to the National Kidney Foundation, irrespective of diagnosis, the stage of the disease is based on the level of kidney function: Stage Description GFR(mL/min/1.73 m(2)) 1 Kidney damage with normal or decreased GFR 90 2 Kidney damage with mild decrease in GFR 60-89 3 Moderate decrease in GFR 30-59 4 Severe decrease in GFR 15-29 5 Kidney failure <15 (or dialysis) 7 Acute inflammation: >10.00 8 Because ethnic data is not always readily available, this report includes an eGFR for both -Americans and non- Americans. The National Kidney Disease Education Program (NKDEP) does not endorse the use of the MDRD equation for patients that are not between the ages of 18 and 70, are , have extremes of body size, muscle mass, or nutritional status, or are non- or non-. According to the National Kidney Foundation, irrespective of diagnosis, the stage of the disease is based on the level of kidney function: Stage Description GFR(mL/min/1.73 m(2)) 1 Kidney damage with normal or decreased GFR 90 2 Kidney damage with mild decrease in GFR 60-89 3 Moderate decrease in GFR 30-59 4 Severe decrease in GFR 15-29 5 Kidney failure <15 (or dialysis) 9 Acute inflammation: >10.00 10 Acute inflammation: >10.00 11 Because ethnic data is not always readily available, this report includes an eGFR for both -Americans and non- Americans. The National Kidney Disease Education Program (NKDEP) does not endorse the use of the MDRD equation for patients that are not between the ages of 18 and 70, are , have extremes of body size, muscle mass, or nutritional status, or are non- or non-. According to the National Kidney Foundation, irrespective of diagnosis, the stage of the disease is based on the level of kidney function: Stage Description GFR(mL/min/1.73 m(2)) 1 Kidney damage with normal or decreased GFR 90 2 Kidney damage with mild decrease in GFR 60-89 3 Moderate decrease in GFR 30-59 4 Severe decrease in GFR 15-29 5 Kidney failure <15 (or dialysis) 12 Because ethnic data is not always readily available, this report includes an eGFR for both -Americans and non- Americans. The National Kidney Disease Education Program (NKDEP) does not endorse the use of the MDRD equation for patients that are not between the ages of 18 and 70, are , have extremes of body size, muscle mass, or nutritional status, or are non- or non-. According to the National Kidney Foundation, irrespective of diagnosis, the stage of the disease is based on the level of kidney function: Stage Description GFR(mL/min/1.73 m(2)) 1 Kidney damage with normal or decreased GFR 90 2 Kidney damage with mild decrease in GFR 60-89 3 Moderate decrease in GFR 30-59 4 Severe decrease in GFR 15-29 5 Kidney failure <15 (or dialysis) 13 Acute inflammation: >10.00 14 Senior Windows Administrator: [id number] FERNANDO PETTIT 15 SEE RESULT BELOW Name: PRICE GUARDADO : [address]: Jessie Lazar MD Acct: [id number] Unit: [id number] AGE: 60 Location: SDS Re10/13/15 SEX: M Status: REG SDC SPEC: [id number] GABO: 10/13/15-[address]: Jessie Lazar MD REQ: [id number] RECD: 10/13/15 STATUS: RES OTHR DR: Gabbie Shell MD _ SOURCE: WOUND SPDESC:KNEE LEFT ORDERED: Anaerobic Cult/R, MRSA/SA SSTI/R, Culture Stain/R, Fungal - Other /R, Acid Fast Stain/U Procedure Result Reported Site Anaerobic Culture PENDING MRSA/S. aureus SSTI PCR PENDING Wound/Misc Gram Stain Final 10/13/15- 1846 ML 3+ Neutrophils 4+ Gram Positive Cocci 3+ Gram Positive Bacilli 1+ Gram Negative Bacilli Wound/Misc Culture PENDING Fungal Cult - Other Sources PENDING Acid Fast Stain - Direct PENDING * ML - MAIN LAB (PSYCHIATRIC) . END OF REPORT * ML=Testing performed at Main Lab DEPARTMENT OF PATHOLOGY, [address] [place] [address] Vinayak Yanez M.D. Director [facility] # [id number] 16 SEE RESULT BELOW Name: PRICE GUARDADO : [address]: Jessie Lazar MD Acct: [id number] Unit: [id number] AGE: 60 Location: [facility] [id number] Re10/13/15 Dis: 10/19/15 SEX: M Status: DIS IN SPEC: [id number] GABO: 10/13/15-1640 [facility] DR: Jessie Lazar MD REQ: [id number] RECD: 10/13/15286 STATUS: RES OTHR DR: Gabbie Shell MD _ SOURCE: WOUND SPDESC:KNEE LEFT ORDERED: Tissue Cult/GS/R, Fungal - Other/R, Acid Fast Stain/U COMMENTS: CLOSTRIDIUM FINDINGS IN ADDITION TO S. AUREUS: Verbal to DR. SHELL by [id number] at 1411 on 10/15/15. Results read back accurately. Procedure Result Reported Site Tissue Gram Stain Final 10/13/15- 1850 ML 2+ Neutrophils 2+ Gram Positive Cocci 2+ Gram Positive Bacilli Preparation By Direct Smear Tissue Culture Final 10/17/15- 0836 ML Organism 1 STAPHYLOCOCCUS AUREUS Quantity 3+ Organism 2 CLOSTRIDIUM PERFRINGENS Quantity 3+ Anaerobic sensitivities are not routinely performed. Positive isolates will be saved for one week. Please call the Microbiology Laboratory if susceptibility testing is needed. Fungal Cult - Other Sources Preliminary 10/24/15- 1326 ML Fungal Culture No Growth of Mycotic Organisms 1 week Acid Fast Stain - Direct Final 10/14/15- 0818 ML AFB Smear Result No Acid Fast Bacillus Present (Negative) Preparation By Direct Smear CONTINUED ON NEXT PAGE * ML=Testing performed at Main Lab DEPARTMENT OF PATHOLOGY, [address] [place] [address] Vinayak Yanez M.D. Director [facility] # [id number] Patient: PRICE GUARDADO [id number] (Continued) Specimen: [id number] Collected: 10/13/15 Received: 10/13/15 (Continued) Procedure Result Reported Site Acid Fast Stain - Direct Final (continued) 10/14/15817 Due to limited sensitivity of the smear, results should be used as an adjunct in evaluating the patient's status and cultural examination is highly recommended for diagnosis. * ML - MAIN LAB ([facility]) . END OF REPORT * ML=Testing performed at Main Lab DEPARTMENT OF PATHOLOGY, [address] [place] [address] Vinayak Ynaez M.D. Director [facility] # [id number] 17 SEE RESULT BELOW Name: DEBBYPRICE : [address]: Jessie Lazar MD Acct: [id number] Unit: [id number] AGE: 60 Location: [place] [address] Re10/13/15 SEX: M Status: ADM IN SPEC: [id number] GABO: 10/13/15-1640 [facility] DR: Jessie Lazar MD REQ: [id number] RECD: 10/13/15296 STATUS: RES OTHR DR: Gabbie Shell MD _ SOURCE: WOUND SPDESC:KNEE LEFT ORDERED: Anaerobic Cult/R, MRSA/SA SSTI/R, Culture Stain/R, Fungal - Other /R, Acid Fast Stain/U COMMENTS: Verbal to GEMINI CHAWLA by [id number] at 2020 on 10/13/15. Results read back accurately. Procedure Result Reported Site Anaerobic Culture PENDING MRSA/S. aureus SSTI PCR Final 10/13/15- 2017 ML Organism 1 MRSA NEGATIVE Organism 2 S.AUREUS POSITIVE Wound/Misc Gram Stain Final 10/13/15- 184 ML 3+ Neutrophils 4+ Gram Positive Cocci 3+ Gram Positive Bacilli 1+ Gram Negative Bacilli Wound/Misc Culture Preliminary 10/14/15- 1330 ML Organism 1 STAPHYLOCOCCUS AUREUS Quantity 3+ Fungal Cult - Other Sources PENDING Acid Fast Stain - Direct Final 10/14/15- 0810 ML AFB Smear Result No Acid Fast Bacillus Present (Negative) Preparation By Direct Smear CONTINUED ON NEXT PAGE * ML=Testing performed at Main Lab DEPARTMENT OF PATHOLOGY, [address] [place] [address] Vinayak Yanez M.D. Director [facility] # [id number] Patient: PRICE GUARDADO [id number] (Continued) Specimen: [id number] Collected: 10/13/15 Received: 10/13/15 (Continued) Procedure Result Reported Site Acid Fast Stain - Direct Final (continued) 10/14/15809 Due to limited sensitivity of the smear, results should be used as an adjunct in evaluating the patient's status and cultural examination is highly recommended for diagnosis. * ML - MAIN LAB ([facility]) . END OF REPORT * ML=Testing performed at Main Lab DEPARTMENT OF PATHOLOGY, [address] [place] [address] Vinayak Yanez M.D. Director [facility] # [id number] 18 SEE RESULT BELOW Name: PRICE GUARDADO : [address]: Jessie Lazar MD Acct: [id number] Unit: [id number] AGE: 60 Location: [facility] 338-01 Re10/13/15 Dis: 10/19/15 SEX: M Status: DIS IN SPEC: [id number] GABO: 10/13/15-1640 [facility] DR: Jessie Lazar MD REQ: [id number] RECD: 10/13/15 STATUS: RES OTHR DR: Gabbie Shell MD _ SOURCE: WOUND SPDESC:KNEE LEFT ORDERED: Anaerobic Cult/R, MRSA/SA SSTI/R, Culture Stain/R, Fungal - Other /R, Acid Fast Stain/U COMMENTS: Verbal to GEMINI CHAWLA by [id number] at 2020 on 10/13/15. Results read back accurately. CLOSTRIDIUM FINDINGS IN ADDITION TO S. AUREUS: Verbal to DR. SHELL by [id number] at 1411 on 10/15/15. Results read back accurately. Procedure Result Reported Site Anaerobic Culture Final 10/17/15- 834 ML Organism 1 CLOSTRIDIUM PERFRINGENS Quantity 3+ Anaerobic sensitivities are not routinely performed. Positive isolates will be saved for one week. Please call the Microbiology Laboratory if susceptibility testing is needed. MRSA/S. aureus SSTI PCR Final 10/13/15- 2017 ML Organism 1 MRSA NEGATIVE Organism 2 S.AUREUS POSITIVE Wound/Misc Gram Stain Final 10/15/15845 ML 3+ Neutrophils 4+ Gram Positive Cocci 3+ Gram Positive Bacilli 1+ Gram Negative Bacilli Wound/Misc Culture Final 10/15/15- 845 ML CONTINUED ON NEXT PAGE * ML=Testing performed at Main Lab DEPARTMENT OF PATHOLOGY, [address] [place] [address] Vinayak Yanez M.D. Director [facility] # [id number] Patient: PRICE GUARDADO [id number] (Continued) Specimen: [id number] Collected: 10/13/15 Received: 10/13/15 (Continued) Procedure Result Reported Site Wound/Misc Culture Final (continued) 10/15/15 08 Organism 1 STAPHYLOCOCCUS AUREUS Quantity 3+ 1. STAPHYLOCOCCUS AUREUS M.I.C. RX --------- ------ Penicillin >=0.5 R Clindamycin <=0.25 S Erythromycin <=0.25 S Gentamicin <=0.5 S Linezolid 2 S Nitrofurantoin 32 S Oxacillin <=0.25 S * Quinupristin/Dalfopristin <=0.25 S Rifampin <=0.5 S Tetracycline <=1 S Doxycycline - Deduced S * Minocycline - Deduced S Trimethoprim/Sulfamethoxazole <=10 S Vancomycin 1 S Imipenem-Deduced S * Ampicillin/Sulbactam-Deduced S Cefazolin-Deduced S * These antibiotics are not available in the [facility] Formulary Contact the Microbiology Department for any additional antibiotic reporting. Fungal Cult - Other Sources Preliminary 10/24/15- 1325 ML Fungal Culture No Growth of Mycotic Organisms 1 week Acid Fast Stain - Direct Final 10/14/15- 0810 ML CONTINUED ON NEXT PAGE * ML=Testing performed at Main Lab DEPARTMENT OF PATHOLOGY, [address] [place] [address] Vinayak Yanez M.D. Director [facility] # [id number] Patient: PRICE GUARDADO [id number] (Continued) Specimen: [id number] Collected: 10/13/15 Received: 10/13/15 (Continued) Procedure Result Reported Site Acid Fast Stain - Direct Final (continued) 10/14/15809 AFB Smear Result No Acid Fast Bacillus Present (Negative) Preparation By Direct Smear Due to limited sensitivity of the smear, results should be used as an adjunct in evaluating the patient's status and cultural examination is highly recommended for diagnosis. * ML - MAIN LAB (PSYCHIATRIC) . END OF REPORT * ML=Testing performed at Main Lab DEPARTMENT OF PATHOLOGY, [address] [place] [address] Vinayak Yanez M.D. Director [facility] # [id number] 19 SEE RESULT BELOW Name: PRICE GUARDADO : [address]: Jessie Lazar MD Acct: [id number] Unit: [id number] AGE: 60 Location: [facility] Re10/13/15 SEX: M Status: REG SDC SPEC: [id number] GABO: 10/13/15-1640 [facility] DR: Jessie Lazar MD REQ: [id number] RECD: 10/13/15-8034 STATUS: RES OTHR DR: Gabbie Shell MD _ SOURCE: WOUND SPDESC:KNEE LEFT ORDERED: Anaerobic Cult/R, MRSA/SA SSTI/R, Culture Stain/R, Fungal - Other /R, Acid Fast Stain/U Procedure Result Reported Site Anaerobic Culture PENDING MRSA/S. aureus SSTI PCR PENDING Wound/Misc Gram Stain Final 10/13/15- 1846 ML 3+ Neutrophils 4+ Gram Positive Cocci 3+ Gram Positive Bacilli 1+ Gram Negative Bacilli Wound/Misc Culture PENDING Fungal Cult - Other Sources PENDING Acid Fast Stain - Direct PENDING * ML - MAIN LAB ([facility]) . END OF REPORT * ML=Testing performed at Main Lab DEPARTMENT OF PATHOLOGY, [address] [place] [address] Vinayak Yanez M.D. Director [facility] # [id number] 20 SEE RESULT BELOW Name: PRICE GUARDADO : [address]: Jessie Lazar MD Acct: [id number] Unit: [id number] AGE: 60 Location: [place] [address]- Re10/13/15 Dis: 10/19/15 SEX: M Status: DIS IN SPEC: [id number] GABO: 10/13/15-1640 [facility] DR: Jessie Lazar MD REQ: [id number] RECD: 10/13/15 STATUS: RES OTHR DR: Gabbie Shell MD _ SOURCE: WOUND SPDESC:KNEE LEFT ORDERED: Tissue Cult/GS/R, Fungal - Other/R, Acid Fast Stain/U COMMENTS: CLOSTRIDIUM FINDINGS IN ADDITION TO S. AUREUS: Verbal to DR. SHELL by [id number] at 1411 on 10/15/15. Results read back accurately. Procedure Result Reported Site Tissue Gram Stain Final 10/13/15- 1850 ML 2+ Neutrophils 2+ Gram Positive Cocci 2+ Gram Positive Bacilli Preparation By Direct Smear Tissue Culture Final 10/17/15- 835 ML Organism 1 STAPHYLOCOCCUS AUREUS Quantity 3+ Organism 2 CLOSTRIDIUM PERFRINGENS Quantity 3+ Anaerobic sensitivities are not routinely performed. Positive isolates will be saved for one week. Please call the Microbiology Laboratory if susceptibility testing is needed. Fungal Cult - Other Sources Preliminary 10/24/15- 1326 ML Fungal Culture No Growth of Mycotic Organisms 1 week Acid Fast Stain - Direct Final 10/14/15- 817 ML AFB Smear Result No Acid Fast Bacillus Present (Negative) Preparation By Direct Smear CONTINUED ON NEXT PAGE * ML=Testing performed at Main Lab DEPARTMENT OF PATHOLOGY, [address] [place] [address] Vinayak Yanez M.D. Director [facility] # [id number] Patient: PRICE GUARDADO [id number] (Continued) Specimen: [id number] Collected: 10/13/15 Received: 10/13/15 (Continued) Procedure Result Reported Site Acid Fast Stain - Direct Final (continued) 10/14/15817 Due to limited sensitivity of the smear, results should be used as an adjunct in evaluating the patient's status and cultural examination is highly recommended for diagnosis. * ML - MAIN LAB ([facility]) . END OF REPORT * ML=Testing performed at Main Lab DEPARTMENT OF PATHOLOGY, [address] [place] [address] Vinayak Yanez M.D. Director [facility] # [id number] 21 SEE RESULT BELOW Name: PRICE GUARDADO : [address]: Jessie Lazar MD Acct: [id number] Unit: [id number] AGE: 60 Location: [facility] 338- Re10/13/15 SEX: M Status: ADM IN SPEC: [id number] GABO: 10/13/15-1640 [facility] DR: Jessie Lazar MD REQ: [id number] RECD: 10/13/15 STATUS: RES OTHR DR: Gabbie Shell MD _ SOURCE: WOUND SPDESC:KNEE LEFT ORDERED: Anaerobic Cult/R, MRSA/SA SSTI/R, Culture Stain/R, Fungal - Other /R, Acid Fast Stain/U COMMENTS: Verbal to GEMINI CHAWLA by [id number] at 2020 on 10/13/15. Results read back accurately. Procedure Result Reported Site Anaerobic Culture PENDING MRSA/S. aureus SSTI PCR Final 10/13/15- 2018 ML Organism 1 MRSA NEGATIVE Organism 2 S.AUREUS POSITIVE Wound/Misc Gram Stain Final 10/13/15- 1846 ML 3+ Neutrophils 4+ Gram Positive Cocci 3+ Gram Positive Bacilli 1+ Gram Negative Bacilli Wound/Misc Culture Preliminary 10/14/15- 1331 ML Organism 1 STAPHYLOCOCCUS AUREUS Quantity 3+ Fungal Cult - Other Sources PENDING Acid Fast Stain - Direct Final 10/14/15- 10 ML AFB Smear Result No Acid Fast Bacillus Present (Negative) Preparation By Direct Smear CONTINUED ON NEXT PAGE * ML=Testing performed at Main Lab DEPARTMENT OF PATHOLOGY, [address] [place] [address] Vinayak Yanez M.D. Director [facility] # [id number] Patient: PRICE GUARDADO [id number] (Continued) Specimen: [id number] Collected: 10/13/15 Received: 10/13/15 (Continued) Procedure Result Reported Site Acid Fast Stain - Direct Final (continued) 10/14/15- 809 Due to limited sensitivity of the smear, results should be used as an adjunct in evaluating the patient's status and cultural examination is highly recommended for diagnosis. * ML - MAIN LAB ([facility]) . END OF REPORT * ML=Testing performed at Main Lab DEPARTMENT OF PATHOLOGY, [address] [place] [address] Vinayak Yanez M.D. Director [facility] # [id number] 22 SEE RESULT BELOW Name: PRICE GUARDADO : [address]: Jessie Lazar MD Acct: [id number] Unit: [id number] AGE: 60 Location: [facility] 338-01 Re10/13/15 Dis: 10/19/15 SEX: M Status: DIS IN SPEC: [id number] GABO: 10/13/15-[address]: Jessie Lazar MD REQ: [id number] RECD: 10/13/15 STATUS: RES OTHR DR: Gabbie Shell MD _ SOURCE: WOUND SPDESC:KNEE LEFT ORDERED: Anaerobic Cult/R, MRSA/SA SSTI/R, Culture Stain/R, Fungal - Other /R, Acid Fast Stain/U COMMENTS: Verbal to GEMINI CHAWLA by [id number] at 2020 on 10/13/15. Results read back accurately. CLOSTRIDIUM FINDINGS IN ADDITION TO S. AUREUS: Verbal to DR. SHELL by [id number] at 1411 on 10/15/15. Results read back accurately. Procedure Result Reported Site Anaerobic Culture Final 10/17/15- 834 ML Organism 1 CLOSTRIDIUM PERFRINGENS Quantity 3+ Anaerobic sensitivities are not routinely performed. Positive isolates will be saved for one week. Please call the Microbiology Laboratory if susceptibility testing is needed. MRSA/S. aureus SSTI PCR Final 10/13/15- 2017 ML Organism 1 MRSA NEGATIVE Organism 2 S.AUREUS POSITIVE Wound/Misc Gram Stain Final 10/15/15845 ML 3+ Neutrophils 4+ Gram Positive Cocci 3+ Gram Positive Bacilli 1+ Gram Negative Bacilli Wound/Misc Culture Final 10/15/15- 845 ML CONTINUED ON NEXT PAGE * ML=Testing performed at Main Lab DEPARTMENT OF PATHOLOGY, [address] [place] [address] Vinayak Yanez M.D. Director [facility] # [id number] Patient: PRICE GUARDADO [id number] (Continued) Specimen: [id number] Collected: 10/13/15 Received: 10/13/15 (Continued) Procedure Result Reported Site Wound/Misc Culture Final (continued) 10/15/15845 Organism 1 STAPHYLOCOCCUS AUREUS Quantity 3+ 1. STAPHYLOCOCCUS AUREUS M.I.C. RX --------- ------ Penicillin >=0.5 R Clindamycin <=0.25 S Erythromycin <=0.25 S Gentamicin <=0.5 S Linezolid 2 S Nitrofurantoin 32 S Oxacillin <=0.25 S * Quinupristin/Dalfopristin <=0.25 S Rifampin <=0.5 S Tetracycline <=1 S Doxycycline - Deduced S * Minocycline - Deduced S Trimethoprim/Sulfamethoxazole <=10 S Vancomycin 1 S Imipenem-Deduced S * Ampicillin/Sulbactam-Deduced S Cefazolin-Deduced S * These antibiotics are not available in the [facility] Formulary Contact the Microbiology Department for any additional antibiotic reporting. Fungal Cult - Other Sources Preliminary 10/31/15- 1443 ML Fungal Culture No Growth of Mycotic Organisms 2 weeks Acid Fast Stain - Direct Final 10/14/15- 0810 ML CONTINUED ON NEXT PAGE * ML=Testing performed at Main Lab DEPARTMENT OF PATHOLOGY, [address] [place] [address] Vinayak Yanez M.D. Director [facility] # [id number] Patient: PRICE GUARDADO [id number] (Continued) Specimen: [id number] Collected: 10/13/15-1640 Received: 10/13/15-1753 (Continued) Procedure Result Reported Site Acid Fast Stain - Direct Final (continued) 10/14/15809 AFB Smear Result No Acid Fast Bacillus Present (Negative) Preparation By Direct Smear Due to limited sensitivity of the smear, results should be used as an adjunct in evaluating the patient's status and cultural examination is highly recommended for diagnosis. * ML - MAIN LAB ([facility]) . END OF REPORT * ML=Testing performed at Main Lab DEPARTMENT OF PATHOLOGY, [address] [place] [address] Vinayak Yanez M.D. Director [facility] # [id number] 23 SEE RESULT BELOW Name: PRICE GUARDADO : [address]: Jessie Lazar MD Acct: [id number] Unit: [id number] AGE: 60 Location: [facility] Re10/13/15 SEX: M Status: REG SDC SPEC: [id number] GABO: 10/13/15-1640 [facility] DR: Jessie Lazar MD REQ: [id number] RECD: 10/13/15 STATUS: RES OTHR DR: Gabbie Shell MD _ SOURCE: WOUND SPDESC:KNEE LEFT ORDERED: Anaerobic Cult/R, MRSA/SA SSTI/R, Culture Stain/R, Fungal - Other /R, Acid Fast Stain/U Procedure Result Reported Site Anaerobic Culture PENDING MRSA/S. aureus SSTI PCR PENDING Wound/Misc Gram Stain Final 10/13/15- 1846 ML 3+ Neutrophils 4+ Gram Positive Cocci 3+ Gram Positive Bacilli 1+ Gram Negative Bacilli Wound/Misc Culture PENDING Fungal Cult - Other Sources PENDING Acid Fast Stain - Direct PENDING * ML - MAIN LAB ([facility]) . END OF REPORT * ML=Testing performed at Main Lab DEPARTMENT OF PATHOLOGY, [address] [place] [address] Vinayak Yanez M.D. Director [facility] # [id number] 24 SEE RESULT BELOW Name: PRICE GUARDADO : [address]: Jessie Lazar MD Acct: [id number] Unit: [id number] AGE: 60 Location: [facility] 338-01 Re10/13/15 Dis: 10/19/15 SEX: M Status: DIS IN SPEC: [id number] GABO: 10/13/15-[address] [place] [address] DR: Jessie Lazar MD REQ: [id number] RECD: 10/13/157656 STATUS: RES OTHR DR: Gabbie Shell MD _ SOURCE: WOUND SPDESC:KNEE LEFT ORDERED: Tissue Cult/GS/R, Fungal - Other/R, Acid Fast Stain/U COMMENTS: CLOSTRIDIUM FINDINGS IN ADDITION TO S. AUREUS: Verbal to DR. SHELL by [id number] at 1411 on 10/15/15. Results read back accurately. Procedure Result Reported Site Tissue Gram Stain Final 10/13/15- 1850 ML 2+ Neutrophils 2+ Gram Positive Cocci 2+ Gram Positive Bacilli Preparation By Direct Smear Tissue Culture Final 10/17/15- 0836 ML Organism 1 STAPHYLOCOCCUS AUREUS Quantity 3+ Organism 2 CLOSTRIDIUM PERFRINGENS Quantity 3+ Anaerobic sensitivities are not routinely performed. Positive isolates will be saved for one week. Please call the Microbiology Laboratory if susceptibility testing is needed. Fungal Cult - Other Sources Preliminary 11/07/15- 1230 ML Fungal Culture No Growth of Mycotic Organisms 3 weeks Acid Fast Stain - Direct Final 10/14/15- 0818 ML AFB Smear Result No Acid Fast Bacillus Present (Negative) Preparation By Direct Smear CONTINUED ON NEXT PAGE * ML=Testing performed at Main Lab DEPARTMENT OF PATHOLOGY, [address] [place] [address] Vinayak Yanez M.D. Director [facility] # [id number] Patient: PRICE GUARDADO [id number] (Continued) Specimen: [id number] Collected: 10/13/15 Received: 10/13/15 (Continued) Procedure Result Reported Site Acid Fast Stain - Direct Final (continued) 10/14/15817 Due to limited sensitivity of the smear, results should be used as an adjunct in evaluating the patient's status and cultural examination is highly recommended for diagnosis. * ML - MAIN LAB ([facility]) . END OF REPORT * ML=Testing performed at Main Lab DEPARTMENT OF PATHOLOGY, [address] [place] [address] Vinayak Yanez M.D. Director [facility] # [id number] 25 SEE RESULT BELOW Name: PRICE GUARDADO : [address]: Jessie Lazar MD Acct: [id number] Unit: [id number] AGE: 60 Location: [place] [address] Re10/13/15 SEX: M Status: ADM IN SPEC: [id number] GABO: 10/13/15-1640 [facility] DR: Jessie Lazar MD REQ: [id number] RECD: 10/13/152644 STATUS: RES OTHR DR: Gabbie Shell MD _ SOURCE: WOUND SPDESC:KNEE LEFT ORDERED: Anaerobic Cult/R, MRSA/SA SSTI/R, Culture Stain/R, Fungal - Other /R, Acid Fast Stain/U COMMENTS: Verbal to GEMINI CHAWLA by [id number] at 2020 on 10/13/15. Results read back accurately. Procedure Result Reported Site Anaerobic Culture PENDING MRSA/S. aureus SSTI PCR Final 10/13/15- 2017 ML Organism 1 MRSA NEGATIVE Organism 2 S.AUREUS POSITIVE Wound/Misc Gram Stain Final 10/13/15- 1846 ML 3+ Neutrophils 4+ Gram Positive Cocci 3+ Gram Positive Bacilli 1+ Gram Negative Bacilli Wound/Misc Culture Preliminary 10/14/15- 1331 ML Organism 1 STAPHYLOCOCCUS AUREUS Quantity 3+ Fungal Cult - Other Sources PENDING Acid Fast Stain - Direct Final 10/14/15- 0810 ML AFB Smear Result No Acid Fast Bacillus Present (Negative) Preparation By Direct Smear CONTINUED ON NEXT PAGE * ML=Testing performed at Main Lab DEPARTMENT OF PATHOLOGY, [address] [place] [address] Vinayak Yanez M.D. Director [facility] # [id number] Patient: PRICE GUARDADO [id number] (Continued) Specimen: [id number] Collected: 10/13/15 Received: 10/13/15 (Continued) Procedure Result Reported Site Acid Fast Stain - Direct Final (continued) 10/14/15809 Due to limited sensitivity of the smear, results should be used as an adjunct in evaluating the patient's status and cultural examination is highly recommended for diagnosis. * ML - MAIN LAB (PSYCHIATRIC) . END OF REPORT * ML=Testing performed at Main Lab DEPARTMENT OF PATHOLOGY, [address] [place] [address] Vinayak Yanez M.D. Director [facility] # [id number] 26 SEE RESULT BELOW Name: DEBBYPRICE : [address]: Jessie Lazar MD Acct: [id number] Unit: [id number] AGE: 60 Location: [place] [address]- Re10/13/15 Dis: 10/19/15 SEX: M Status: DIS IN SPEC: [id number] GABO: 10/13/15-1640 [facility] DR: Jessie Lazar MD REQ: [id number] RECD: 10/13/15 STATUS: RES OTHR DR: Gabbie Shell MD _ SOURCE: WOUND SPDESC:KNEE LEFT ORDERED: Anaerobic Cult/R, MRSA/SA SSTI/R, Culture Stain/R, Fungal - Other /R, Acid Fast Stain/U COMMENTS: Verbal to GEMINI CHAWLA by [id number] at 2020 on 10/13/15. Results read back accurately. CLOSTRIDIUM FINDINGS IN ADDITION TO S. AUREUS: Verbal to DR. SHELL by [id number] at 1411 on 10/15/15. Results read back accurately. Procedure Result Reported Site Anaerobic Culture Final 10/17/15834 ML Organism 1 CLOSTRIDIUM PERFRINGENS Quantity 3+ Anaerobic sensitivities are not routinely performed. Positive isolates will be saved for one week. Please call the Microbiology Laboratory if susceptibility testing is needed. MRSA/S. aureus SSTI PCR Final 10/13/152017 ML Organism 1 MRSA NEGATIVE Organism 2 S.AUREUS POSITIVE Wound/Misc Gram Stain Final 10/15/15845 ML 3+ Neutrophils 4+ Gram Positive Cocci 3+ Gram Positive Bacilli 1+ Gram Negative Bacilli Wound/Misc Culture Final 10/15/15845 ML CONTINUED ON NEXT PAGE * ML=Testing performed at Main Lab DEPARTMENT OF PATHOLOGY, [address] [place] [address] Vinayak Yanez M.D. Director [facility] # [id number] Patient: PRICE GUARDADO [id number] (Continued) Specimen: [id number] Collected: 10/13/15 Received: 10/13/15 (Continued) Procedure Result Reported Site Wound/Misc Culture Final (continued) 10/15/15845 Organism 1 STAPHYLOCOCCUS AUREUS Quantity 3+ 1. STAPHYLOCOCCUS AUREUS M.I.C. RX --------- ------ Penicillin >=0.5 R Clindamycin <=0.25 S Erythromycin <=0.25 S Gentamicin <=0.5 S Linezolid 2 S Nitrofurantoin 32 S Oxacillin <=0.25 S * Quinupristin/Dalfopristin <=0.25 S Rifampin <=0.5 S Tetracycline <=1 S Doxycycline - Deduced S * Minocycline - Deduced S Trimethoprim/Sulfamethoxazole <=10 S Vancomycin 1 S Imipenem-Deduced S * Ampicillin/Sulbactam-Deduced S Cefazolin-Deduced S * These antibiotics are not available in the [facility] Formulary Contact the Microbiology Department for any additional antibiotic reporting. Fungal Cult - Other Sources Preliminary 11/07/15- 1229 ML Fungal Culture No Growth of Mycotic Organisms 3 weeks Acid Fast Stain - Direct Final 10/14/15- 0810 ML CONTINUED ON NEXT PAGE * ML=Testing performed at Main Lab DEPARTMENT OF PATHOLOGY, [address] [place] [address] Vinayak Yanez M.D. Director [facility] # [id number] Patient: PRICE GUARDADO [id number] (Continued) Specimen: [id number] Collected: 10/13/15 Received: 10/13/15 (Continued) Procedure Result Reported Site Acid Fast Stain - Direct Final (continued) 10/14/15809 AFB Smear Result No Acid Fast Bacillus Present (Negative) Preparation By Direct Smear Due to limited sensitivity of the smear, results should be used as an adjunct in evaluating the patient's status and cultural examination is highly recommended for diagnosis. * ML - MAIN LAB (PSYCHIATRIC) . END OF REPORT * ML=Testing performed at Main Lab DEPARTMENT OF PATHOLOGY, [address] [place] [address] Vinayak Yanez M.D. Director [facility] # [id number] 27 SEE RESULT BELOW Name: PRICE GUARDADO : [address]: Jessie Lazar MD Acct: [id number] Unit: [id number] AGE: 60 Location: [facility] Re10/13/15 SEX: M Status: REG [facility] SPEC: [id number] GABO: 10/13/15-[address] [place] [address] DR: Jessie Lazar MD REQ: [id number] RECD: 10/13/15 STATUS: RES ILANAHR DR: Gabbie Shell MD _ SOURCE: WOUND SPDESC:KNEE LEFT ORDERED: Anaerobic Cult/R, MRSA/SA SSTI/R, Culture Stain/R, Fungal - Other /R, Acid Fast Stain/U Procedure Result Reported Site Anaerobic Culture PENDING MRSA/S. aureus SSTI PCR PENDING Wound/Misc Gram Stain Final 10/13/151845 ML 3+ Neutrophils 4+ Gram Positive Cocci 3+ Gram Positive Bacilli 1+ Gram Negative Bacilli Wound/Misc Culture PENDING Fungal Cult - Other Sources PENDING Acid Fast Stain - Direct PENDING * ML - MAIN LAB ([facility]) . END OF REPORT * ML=Testing performed at Main Lab DEPARTMENT OF PATHOLOGY, [address] [place] [address] Vinayak Yanez M.D. Director [facility] # [id number] 28 SEE RESULT BELOW Name: DEBBYPRICE Arcenio : [address]: Jessie Lazar MD Acct: [id number] Unit: [id number] AGE: 60 Location: [facility] 338- Re10/13/15 Dis: 10/19/15 SEX: M Status: DIS IN SPEC: [id number] GABO: 10/13/15-1640 [facility] DR: Jessie Lazar MD REQ: [id number] RECD: 10/13/15 STATUS: DOLORES CARLOS DR: Gabbie Shell MD _ SOURCE: WOUND SPDESC:KNEE LEFT ORDERED: Tissue Cult/GS/R, Fungal - Other/R, Acid Fast Stain/U COMMENTS: CLOSTRIDIUM FINDINGS IN ADDITION TO S. AUREUS: Verbal to DR. SHELL by [id number] at 1411 on 10/15/15. Results read back accurately. Procedure Result Reported Site Tissue Gram Stain Final 10/13/15- 1850 ML 2+ Neutrophils 2+ Gram Positive Cocci 2+ Gram Positive Bacilli Preparation By Direct Smear Tissue Culture Final 10/17/15- 0836 ML Organism 1 STAPHYLOCOCCUS AUREUS Quantity 3+ Organism 2 CLOSTRIDIUM PERFRINGENS Quantity 3+ Anaerobic sensitivities are not routinely performed. Positive isolates will be saved for one week. Please call the Microbiology Laboratory if susceptibility testing is needed. Fungal Cult - Other Sources Final 11/14/15- 1428 ML Fungal Culture No Growth of Mycotic Organisms 4 weeks Acid Fast Stain - Direct Final 10/14/15- 08 ML AFB Smear Result No Acid Fast Bacillus Present (Negative) Preparation By Direct Smear CONTINUED ON NEXT PAGE * ML=Testing performed at Main Lab DEPARTMENT OF PATHOLOGY, [address] [place] [address] Vinayak Yanez M.D. Director [facility] # [id number] Patient: PRICE GUARDADO [id number] (Continued) Specimen: [id number] Collected: 10/13/15 Received: 10/13/15 (Continued) Procedure Result Reported Site Acid Fast Stain - Direct Final (continued) 10/14/15817 Due to limited sensitivity of the smear, results should be used as an adjunct in evaluating the patient's status and cultural examination is highly recommended for diagnosis. * ML - MAIN LAB ([facility]) . END OF REPORT * ML=Testing performed at Main Lab DEPARTMENT OF PATHOLOGY, [address] [place] [address] Vinayak Yanez M.D. Director [facility] # [id number] 29 SEE RESULT BELOW Name: PRICE GUARDADO : [address]: Jessie Lazar MD Acct: [id number] Unit: [id number] AGE: 60 Location: [place] [address]- Re10/13/15 SEX: M Status: ADM IN SPEC: [id number] GABO: 10/13/15-1640 [facility] DR: Jessie Lazar MD REQ: [id number] RECD: 10/13/15 STATUS: RES OTHR DR: Gabbie Shell MD _ SOURCE: WOUND SPDESC:KNEE LEFT ORDERED: Anaerobic Cult/R, MRSA/SA SSTI/R, Culture Stain/R, Fungal - Other /R, Acid Fast Stain/U COMMENTS: Verbal to GEMINI CHAWLA by [id number] at 2020 on 10/13/15. Results read back accurately. Procedure Result Reported Site Anaerobic Culture PENDING MRSA/S. aureus SSTI PCR Final 10/13/152017 ML Organism 1 MRSA NEGATIVE Organism 2 S.AUREUS POSITIVE Wound/Misc Gram Stain Final 10/13/15- 1846 ML 3+ Neutrophils 4+ Gram Positive Cocci 3+ Gram Positive Bacilli 1+ Gram Negative Bacilli Wound/Misc Culture Preliminary 10/14/15- 1331 ML Organism 1 STAPHYLOCOCCUS AUREUS Quantity 3+ Fungal Cult - Other Sources PENDING Acid Fast Stain - Direct Final 10/14/15- 0810 ML AFB Smear Result No Acid Fast Bacillus Present (Negative) Preparation By Direct Smear CONTINUED ON NEXT PAGE * ML=Testing performed at Main Lab DEPARTMENT OF PATHOLOGY, [address] [place] [address] Vinayak Yanez M.D. Director [facility] # [id number] Patient: PRICE GUARDADO [id number] (Continued) Specimen: [id number] Collected: 10/13/15-1639 Received: 10/13/15-1753 (Continued) Procedure Result Reported Site Acid Fast Stain - Direct Final (continued) 10/14/15809 Due to limited sensitivity of the smear, results should be used as an adjunct in evaluating the patient's status and cultural examination is highly recommended for diagnosis. * ML - MAIN LAB ([facility]) . END OF REPORT * ML=Testing performed at Main Lab DEPARTMENT OF PATHOLOGY, [address] [place] [address] Vinayak Yanez M.D. Director [place] # [id number] SEE RESULT BELOW Name: PRICE GUARDADO : [address]: Jessie Lazar MD Acct: [id number] Unit: [id number] AGE: 60 Location: [facility] 338-01 Re10/13/15 Dis: 10/19/15 SEX: M Status: DIS IN SPEC: [id number] GABO: 10/13/15-1640 [facility] DR: Jessie Lazar MD REQ: [id number] RECD: 10/13/15 STATUS: COMP [facility] DR: Gabbie Shell MD _ SOURCE: WOUND SPDESC:KNEE LEFT ORDERED: Anaerobic Cult/R, MRSA/SA SSTI/R, Culture Stain/R, Fungal - Other /R, Acid Fast Stain/U COMMENTS: Verbal to GEMINI CHAWLA by [id number] at 2020 on 10/13/15. Results read back accurately. CLOSTRIDIUM FINDINGS IN ADDITION TO S. AUREUS: Verbal to DR. SHELL by [id number] at 1411 on 10/15/15. Results read back accurately. Procedure Result Reported Site Anaerobic Culture Final 10/17/15- 834 ML Organism 1 CLOSTRIDIUM PERFRINGENS Quantity 3+ Anaerobic sensitivities are not routinely performed. Positive isolates will be saved for one week. Please call the Microbiology Laboratory if susceptibility testing is needed. MRSA/S. aureus SSTI PCR Final 10/13/15- 2017 ML Organism 1 MRSA NEGATIVE Organism 2 S.AUREUS POSITIVE Wound/Misc Gram Stain Final 10/15/15845 ML 3+ Neutrophils 4+ Gram Positive Cocci 3+ Gram Positive Bacilli 1+ Gram Negative Bacilli Wound/Misc Culture Final 10/15/15845 ML CONTINUED ON NEXT PAGE * ML=Testing performed at Main Lab DEPARTMENT OF PATHOLOGY, [address] [place] [address] Vinayak Yanez M.D. Director [facility] # [id number] Patient: PRICE GUARDADO [id number] (Continued) Specimen: [id number] Collected: 10/13/15-1639 Received: 10/13/15-1753 (Continued) Procedure Result Reported Site Wound/Misc Culture Final (continued) 10/15/15845 Organism 1 STAPHYLOCOCCUS AUREUS Quantity 3+ 1. STAPHYLOCOCCUS AUREUS M.I.C. RX --------- ------ Penicillin >=0.5 R Clindamycin <=0.25 S Erythromycin <=0.25 S Gentamicin <=0.5 S Linezolid 2 S Nitrofurantoin 32 S Oxacillin <=0.25 S * Quinupristin/Dalfopristin <=0.25 S Rifampin <=0.5 S Tetracycline <=1 S Doxycycline - Deduced S * Minocycline - Deduced S Trimethoprim/Sulfamethoxazole <=10 S Vancomycin 1 S Imipenem-Deduced S * Ampicillin/Sulbactam-Deduced S Cefazolin-Deduced S * These antibiotics are not available in the [facility] Formulary Contact the Microbiology Department for any additional antibiotic reporting. Fungal Cult - Other Sources Final 11/14/15- 1427 ML Fungal Culture No Growth of Mycotic Organisms 4 weeks Acid Fast Stain - Direct Final 10/14/15- 0810 ML CONTINUED ON NEXT PAGE * ML=Testing performed at Main Lab DEPARTMENT OF PATHOLOGY, [address] [place] [address] Vinayak Yanez M.D. Director [facility] # [id number] Patient: PRICE GUARDADO [id number] (Continued) Specimen: [id number] Collected: 10/13/15 Received: 10/13/15 (Continued) Procedure Result Reported Site Acid Fast Stain - Direct Final (continued) 10/14/15809 AFB Smear Result No Acid Fast Bacillus Present (Negative) Preparation By Direct Smear Due to limited sensitivity of the smear, results should be used as an adjunct in evaluating the patient's status and cultural examination is highly recommended for diagnosis. * ML - MAIN LAB (PSYCHIATRIC) . END OF REPORT * ML=Testing performed at Main Lab DEPARTMENT OF PATHOLOGY, [address] [place] [address] Vinayak Yanez M.D. Director [facility] # [id number] SOURCE: KNEE, KNEE WOUND SWAB MYCOBACTERIAL CULTURE FINAL No growth after 60 days of incubation. Test Performed by: [facility] - [address] [address] Planimeter Operator: Cam Isidro II, M.D., Ph.D. Procedures Date CPT Code Description Status 04/24/2018 72860 Amputation,Toe;Interphalangeal Joint Completed 04/24/2018 46307 Amputation,Toe;Interphalangeal Joint Completed 04/24/2018 48637 Amputation,Toe;Interphalangeal Joint Completed 04/24/2018 91133 Amputation,Toe;Interphalangeal Joint Completed 04/18/2018 37821 Moderate Sedation Services; Same Phys Each Additional Completed 15 Mins 04/18/2018 24917 Moderate Sedation Services; Same Phys Intl 15 Mins; PT Completed >=5 Years 04/18/2018 93705 Ultrasound Guidance For Vascular Access Completed 04/18/2018 57612 Angio Extremity, Bilateral Completed 04/18/2018 83396 Revascularization,Endovascular W/Atherectomy, Inc Completed Angioplasty 04/18/2018 38813 Revascularization,Endovascular W/Atherectomy, Inc Completed Angioplasty 12/10/2016 74271 ECHO Transthorasic Realtime 2D W Doppler & Color Flow Completed Hosp 12/09/2016 45785 EKG, Interpretation Only Completed 01/10/2016 92569 Stress Test Supervsn W/Out I/R Completed 01/10/2016 83365 Treadmill Interp/Report Only Completed 10/15/2015 65695 Arthroscopy,Knee For Infection,Lavage & Drainage Completed 10/15/2015 57289 Arthroscopy,Knee For Infection,Lavage & Drainage Completed 10/15/2015 18131 Arthroscopy,Knee For Infection,Lavage & Drainage Completed 10/15/2015 95725 Arthroscopy,Knee For Infection,Lavage & Drainage Completed 10/13/2015 19947 Arthroscopy,Knee,Meniscectomy Medial Or Lateral Completed 10/13/2015 25630 Arthroscopy,Knee,Meniscectomy Medial Or Lateral Completed 10/13/2015 18520 Arthroscopy,Knee For Infection,Lavage & Drainage Completed 05/18/2013 23111 EEG Recording Awake & Asleep Completed 03/13/2013 48286 Color Flow Doppler/Interp & Reprt Completed 03/13/2013 79224 Pulse Wave/Continuous-Interp.RPT Completed 03/13/2013 50672 Echocardiography, Transesophageal, Real Time W/Image 2D Completed W/W/O M-M Encounters Type Date Location Provider CPT E/M Dx Office Visit 05/08/2018 [facility] Madalyn Jordan 43181 Z89.412 1:40p Infectious Diseases Gabrielle García E11.52 Office Visit 04/22/2018 1:30p [facility] [place] [address] M86.172 C.M.A. Office Visit 04/19/2018 9:33a [facility] [place] [address] Z47.89 C.M.A. Office Visit 04/19/2018 11:31a [facility] [place] [address] L97.513 Assoc,pc Hospitalists E11.52 I73.9 Office Visit 04/18/2018 11:30a [facility] Aldo Lambert, 90150 L97.513 Assoc,pc Hospitalists [place] E11.52 I73.9 F32.9 G25.0 Office Visit 04/17/2018 11:30a [facility] Assoc,pc Joe Ramírez, 53552 L97.513 Hospitalists Gabrielle E11.52 Office Visit 04/16/2018 1:09p [facility] Assoc,pc Steffanie Larsen 64424 I73.9 Hospitalists MARJORIE Bradley E11.51 Office Visit 04/16/2018 9:11a [facility] Richardson Mahan, 91920 I70.213 Of Pal Anthony M87.878 Office Visit 04/15/2018 2:11p [facility] SAIDA Rea 48084 M87.078 C.M.A. L03.032 Office Visit 04/15/2018 11:29a [facility] [place]oc,[place] [address] L97.513 Hospitalists E11.9 F32.9 Office Visit 04/15/2018 12:44p [facility] Madalyn García, 62826 E11.52 Infectious Diseases Gabrielle Z86.73 Office Visit 12/10/2016 2:49p [facility] [address] G45.9 Office Visit 12/10/2016 3:56p [facility], Tiffanie Hope, 03561 R07.2 Hospitalists ARCHITECTURAL INTERN R55 E11.9 G45.9 Office Visit 12/09/2016 1:48p [facility] Sae Major, 38828 G45.9 M.D. Office Visit 12/09/2016 3:55p [facility], Orlin Junior 45546 R55 Hospitalstephan LI M.D. R07.2 E11.9 G45.9 Office Visit 01/10/2016 12:51p [facility] Sadie Rivera, 12837 R07.9 Assoc, ARCHITECTURAL INTERN Hospitalists N17.9 E11.9 I10 Office Visit 01/09/2016 12:50p [facility], Ezekiel Curtis.Lionel 38452 R07.9 Hospitalists E11.9 N17.9 I10 Office Visit 11/30/2015 3:20p [facility] Madalyn Jordan 49656 M00.062 Infectious Noé García M.D. Office Visit 11/16/2015 3:20p [facility] Madalyn Jordan 11670 M00.062 Infectious Noé García M.D. B96.7 Office Visit 11/03/2015 2:00p [facility] Madalyn Jordan 22347 M00.062 Infectious Noé García M.D. M00.062 Office Visit 10/19/2015 9:02a [facility] Madalyn Jordan 95533 M00.062 Infectious Noé García M.D. L02.416 Office Visit 10/19/2015 10:02a [facility] [place] [address] M00.062 Assoc, Hospitalists B96.7 E11.8 Office Visit 10/18/2015 8:56a [facility] Madalyn Jordan 35077 M00.062 Infectious Noé García M.D. R19.7 V99.xxxA B96.7 Office Visit 10/18/2015 10:02a [facility], Sanchez Shell, 92368 M00.062 Hospitalstephan Anthony E11.8 B96.7 Office Visit 10/17/2015 10:01a [facility], Sanchez Shell, 94196 M00.062 Hospitalists Gabrielle B96.7 E11.8 Office Visit 10/16/2015 10:00a [facility], [place], 10618 M00.062 Hospitalists Gabrielle B96.7 E11.8 Office Visit 10/15/2015 10:00a [facility], [place], 12079 M00.062 Hospitalists Gabrielle B96.7 E11.8 Office Visit 10/14/2015 9:59a [facility], Nasima [place], 13167 M00.062 Hospitalists D.O. E11.8 Office Visit 10/13/2015 9:58a [facility] Tiffanie Hope, 27471 M00.062 Assoc, Hospitalists ARCHITECTURAL INTERN E11.8 Office Visit 10/13/2015 7:00a [facility] [place] [address] M25.562 C.M.A. M25.462 S81.012A B96.89 Office Visit 07/29/2013 8:30a [facility] [place], 58066 333.1 Services Of Rag Baler M.D. Office Visit 06/19/2013 11:30a [facility] [place], 93481 437.9 Services Of Rag Baler M.D. Office Visit 05/12/2013 10:45a [facility] [place], 93007 345.40 Services Of Rag Baler M.D. 438.89 331.83 Office Visit 03/13/2013 12:53p [facility] Sanchez [place], 13693 435.9 Services Of Rag Baler M.D. Office Visit 03/13/2013 2:43p [facility] Nasiam Colmenares, 44120 784.51 Assoc, Hospitalists D.O. 272.2 435.9 305.1 Office Visit 03/12/2013 12:52p [facility] [place], 86866 435.9 Services Of Rag Baler M.D. Office Visit 03/12/2013 2:42p [facility] [place] [address] 784.51 Assoc, Hospitalists 272.2 434.11 305.1 Plan of Care Future Appointment(s):05/27/2018 3:00 pm - Jose Juan King [facility]
--- OUTSIDE RECORDS SUMMARY | 2018-05-27 17:06 | XMS REPORT ---
:1955 External Reference #:[id number] Author Organization [employer] Address [address] [place] [address] [place] [address] Phone [phone] Care Team Providers Name Role Phone Gabbie Shell MD Primary Care Physician Unavailable Payers Type Date Identification Numbers Payment Provider Subscriber Commercial Effective: Policy Number: [id number] [facility] Maryam Guardado 2010 PayID: [id number] [address] [place] [address] Medigap Part B Expires: 2018 Policy Number: Medicare Price Guardado [id number] PayID: [id number] [address] [place] [address] Medigap Part B Expires: 2018 Policy Number: Medicare Price Guardado [id number] PayID: [id number] [address] [place] [address] Medigap Part B Expires: 2018 Policy Number: [employer] Maryam Guevara [id number] Debby Group Number: [id number] [address] PayID: [id number] [place] [address] Workers Compensation Onset: 2015 Policy Number: Jorden Guardado [id number] Group Number: [id number] [address] PayID: [id number] [place] Pardo [id number] Problems Date Description Provider Status Onset: 05/27/2018 Cellulitis of left lower limb Jose Juan King MD Active Onset: 05/27/2018 Dehiscence of surgical wound Jose Juan King MD Active Onset: 04/24/2018 Type 2 diabetes mellitus with [...] 05/05/ Active Capsules 250mg 30caps Take 1 [facility] 2017 capsule viridiana Kingd Oxycodone HCL 04/24/ Active Tablets 5mg 15tabs 1 tab [facility] 2017 every 4-6 Fernando, hours as MD needed for pain mdd 4 [...] 05/02/ Hx Capsules 300mg 30caps Take 1 [facility] 2017 - Capsule Fernando, 05/07/ By Mouth 2018 Three Times Daily Clindamycin HCL 11/01/ Hx Capsules 300mg 90caps 1 tabs by Jamar Jordan 2015 - mouth 3 Macqueen, 01/03/ times a M.D. 2015 day Lamictal 05/13/ Hx Tablets 25mg Paul Macario 2012 - Dori, 05/13/ M.D. 2012 Lamictal 05/13/ Hx Tablets 100mg 90tabs 1 and 10/01 Paul Macario 2012 - qa and Dori, 10/26/ 10/01 qhs M.D. 2016 for 2 wks then 1 and 1/2 qam and 1 qhs for 2 wks then 1 and 1/2 bid Lantus Solostar // Hx Solution 100Unit/ML 5units inject 50 Unknown 0000 - units sc in 2018 morning, inject 7 units sc at hs Bupropion HCL 00/00/ Hx Tablets ER 300mg 1 by Unknown ER (XL) 0000 - 24HR mouth every day 2017 Lamictal 00/00/ Hx (?) 1 po Unknown 0000 - daily 2012 Lipitor /00/ Hx Tablets 20mg 90tabs one tab Unknown 0000 - po qhs 2015 Aspirin /00/ Hx 325mg 1 tab po Unknown 0000 - daily 2015 Clindamycin HCL 00/00/ Hx Capsules 300mg 1 capsule Unknown 0000 - by mouth 11/01/ four 2016 times a day Cefazolin 00/00/ Hx Solution 1gm 2 gm iv Unknown Sodium 0000 - Rec every 8 02/17/ hours 2015 Percocet 00/ Hx Tablets 5-325mg 1 by Unknown 0000 - mouth 04/21/ every 4 2018 hours as needed pain Bentyl 00/00/ Hx Capsules 10mg take 1 Unknown 0000 - tablet by 2015 with every meal Tramadol HCL 00/ Hx Tablets 50mg 1 tablets Unknown 0000 - every 6 04/06/ hours as 2016 needed Levofloxacin /00/ Hx Tablets 750mg Take 1 Unknown 0000 - Tablet By 04/21/ Mouth 2017 Every Day Clindamycin HCL 00/00/ Hx Capsules 300mg Take 1 Unknown 0000 - Capsule 04/21/ By Mouth 2017 Three Times Daily Metronidazole /00/ Hx Tablets 500mg Take 1 Unknown 0000 - Tablet By 04/21/ Mouth 2017 Three Times Daily Vital Signs Date Vital Result Comment 05/27/2018 Height 67 inches 5'7" Heart Rate 68 /min Respiratory Rate 20 /min Body Temperature 99.9 F Pain Level 0 05/20/2018 Height 67 inches 5'7" Weight 183.00 [...] Comment 31 1 SEE RESULT BELOW Name: DEBBYPRICE Arcenio : [address]: Jose Juan King MD Acct: [id number] Unit: [id number] AGE: 62 Location: [place] Re04/24/18 SEX: M Status: [facility]C: [id number] GABO: 04/24/18- [facility] DR: Jose Juan King MD REQ: [id number] RECD: 04/24/181440 STATUS: SOUT _ ORDERED: [facility], LEVEL 4 FINAL DIAGNOSIS Left great toe, [...] margin blue and plantar margin black, and sales representative jewelry sections are submitted in cassettes A and B to include bone following decalcification in cassette A. Signed by and Reported on: Abby Ellis MD 04/29/18 1052 END OF REPORT DEPARTMENT OF PATHOLOGY, [address] [place] [address] Vinayak Yanez M.D. Director [facility] # [id number] 2 Investment Counselor: [id number] 3 Investment Counselor: [id number] 4 Investment Counselor: [id number] 5 Investment Counselor: [id number] 6 Because ethnic data is not always [...] (or dialysis) 13 Acute inflammation: >10.00 14 Investment Counselor: [id number] FERNANDO HODAN 15 SEE RESULT BELOW Name: PRICE GUARDADO Arcenio : [address]: Jessie Lazar MD Acct: [id number] Unit: [id number] AGE: 60 Location: SDS Re10/13/15 SEX: M Status: REG SDC SPEC: [id number] GABO: 10/13/15-[address]: Jessie Lazar MD REQ: [id number] RECD: 10/13/15 STATUS: RES OTHR DR: Gabbie [...] Direct PENDING * ML - MAIN LAB ([facility]) . END OF REPORT * ML=Testing performed at Main Lab DEPARTMENT OF PATHOLOGY, [address] [place] [address] Vinayak Yanez M.D. Director [facility] # [id number] 16 SEE RESULT BELOW Name: PRICE GUARDADO : [address]: Jessie Lazar MD Acct: [id number] Unit: [id number] AGE: 60 Location: [facility] 338-01 Re10/13/15 Dis: 10/19/15 SEX: M Status: DIS IN SPEC: [id number] GABO: 10/13/15-[address]: Jessie Lazar MD REQ: [id number] RECD: 10/13/15 STATUS: RES OTHR DR: Gabbie Shell MD _ SOURCE: WOUND SPDESC:KNEE LEFT ORDERED: Tissue Cult/GS/R, Fungal - Other/R, Acid Fast Stain/U COMMENTS: CLOSTRIDIUM FINDINGS IN ADDITION TO S. AUREUS: Verbal to DR. SHELL by [id number] at 1411 on 10/15/15. Results read back [...] performed at Main Lab DEPARTMENT OF PATHOLOGY, [address] [place] [address] Vinayak Yanez M.D. Director [facility] # [id number] Patient: PRICE GUARDADO [id number] (Continued) Specimen: [id number] Collected: 10/13/15 Received: 10/13/15 (Continued) Procedure Result Reported Site Acid Fast Stain - Direct Final (continued) 10/14/15817 Due to limited sensitivity of the smear, results should be used as an adjunct in evaluating the patient's status and cultural examination is highly recommended for diagnosis. * ML - MAIN LAB ([facility]) . END OF REPORT * ML=Testing performed at Main Lab DEPARTMENT OF PATHOLOGY, [address] [place] [address] Vinayak Yanez M.D. Director [facility] # [id number] 17 SEE RESULT BELOW Name: PRICE GUARDADO : [address]: Jessie Lazar MD Acct: [id number] Unit: [id number] AGE: 60 Location: [facility] 338-01 Re10/13/15 SEX: M Status: ADM IN SPEC: [id number] GABO: 10/13/15-[address] [facility] [address]: Jessie Lazar MD REQ: [id number] RECD: 10/13/15 STATUS: RES OTHR DR: Gabbie Shell MD _ SOURCE: WOUND SPDESC:KNEE LEFT ORDERED: Anaerobic Cult/R, MRSA/SA SSTI/R, Culture Stain/R, Fungal - Other /R, Acid Fast Stain/U COMMENTS: Verbal to GEMINI HASKINSZONIA CHAWLA by [id number] at 2020 on 10/13/15. Results read back [...] performed at Main Lab DEPARTMENT OF PATHOLOGY, [address] [place] [address] Vinayak Yanez M.D. Director [facility] # [id number] Patient: PRICE GUARDADO [id number] (Continued) Specimen: [id number] Collected: 10/13/15 Received: 10/13/15175 (Continued) Procedure Result Reported Site Acid Fast Stain - Direct Final (continued) 10/14/15 01 Due to limited sensitivity of the smear, results should be used as an adjunct in evaluating the patient's status and cultural examination is highly recommended for diagnosis. * ML - MAIN LAB ([facility]) . END OF REPORT * ML=Testing performed at Main Lab DEPARTMENT OF PATHOLOGY, [address] [place] [address] Vinayak Yanez M.D. Director [facility] # [id number] 18 SEE RESULT BELOW Name: PRICE GUARDADO : [address]: Jessie Lazar MD Acct: [id number] Unit: [id number] AGE: 60 Location: [place] [address]- Re10/13/15 Dis: 10/19/15 SEX: M Status: DIS IN SPEC: [id number] GABO: 10/13/15-16[address] [facility] [address]: Jessie Lazar MD REQ: [id number] RECD: 10/13/15337 STATUS: RES OTHR DR: Gabbie Shell MD _ SOURCE: WOUND SPDESC:KNEE LEFT ORDERED: Anaerobic Cult/R, MRSA/SA SSTI/R, Culture Stain/R, Fungal - Other /R, Acid Fast Stain/U COMMENTS: Verbal to GEMINI CHAWLA by [id number] at 2020 on 10/13/15. Results read back accurately. CLOSTRIDIUM FINDINGS IN ADDITION TO S. AUREUS: Verbal to DR. SHELL by [id number] at 1411 on 10/15/15. Results read back [...] 2 S.AUREUS POSITIVE Wound/Misc Gram Stain Final 10/15/15- 845 ML 3+ Neutrophils 4+ Gram Positive Cocci 3+ Gram Positive Bacilli 1+ Gram Negative Bacilli Wound/Misc Culture Final 10/15/15845 ML CONTINUED ON NEXT PAGE * ML=Testing performed at Main Lab DEPARTMENT OF PATHOLOGY, [address] [place] [address] Vinayak Yanez M.D. Director [facility] # [id number] Patient: PRICE GUARDADO [id number] (Continued) Specimen: [id number] Collected: 10/13/15 Received: 10/13/15 (Continued) Procedure Result [...] These antibiotics are not available in the [facility] Formulary Contact the Microbiology Department for any additional antibiotic reporting. Fungal Cult - Other Sources Preliminary 10/24/15- 1325 ML Fungal Culture No Growth of Mycotic Organisms 1 week Acid Fast Stain - Direct Final 10/14/15- 0810 ML CONTINUED ON NEXT PAGE * ML=Testing performed at Main Lab DEPARTMENT OF PATHOLOGY, [address] [place] [address] Vinayak Yanez M.D. Director [facility] # [id number] Patient: PRICE GUARDADO [id number] (Continued) Specimen: [id number] Collected: 10/13/15 Received: 10/13/15 (Continued) Procedure Result Reported Site Acid Fast Stain - Direct Final (continued) 10/14/15- 08 AFB Smear Result No Acid Fast Bacillus Present (Negative) Preparation By Direct Smear Due to limited sensitivity of the smear, results should be used as an adjunct in evaluating the patient's status and cultural examination is highly recommended for diagnosis. * ML - MAIN LAB ([facility]) . END OF REPORT * ML=Testing performed at Main Lab DEPARTMENT OF PATHOLOGY, [address] [place] [address] Vinayak Yanez M.D. Director [facility] # [id number] 19 SEE RESULT BELOW Name: PRICE GUARDADO : [address]: Jessie Lazar MD Acct: [id number] Unit: [id number] AGE: 60 Location: [facility] Re10/13/15 SEX: M Status: REG [facility] SPEC: [id number] GABO: 10/13/15-[address] [facility] [address]: Jessie Lazar MD REQ: [id number] RECD: 10/13/15 STATUS: RES OTHR DR: Gabbie Shell MD _ SOURCE: WOUND SPDESC:KNEE LEFT ORDERED: Anaerobic Cult/R, MRSA/SA SSTI/R, Culture Stain/R, Fungal - Other /R, Acid Fast Stain/U Procedure Result Reported Site Anaerobic Culture PENDING MRSA/S. aureus SSTI PCR PENDING Wound/Misc Gram Stain Final 10/13/15- 1845 ML 3+ Neutrophils 4+ Gram Positive Cocci 3+ Gram Positive Bacilli 1+ Gram Negative Bacilli Wound/Misc Culture PENDING Fungal Cult - Other Sources PENDING Acid Fast Stain - Direct PENDING * ML - MAIN LAB ([facility]) . END OF REPORT * ML=Testing performed at Main Lab DEPARTMENT OF PATHOLOGY, [address] [place] [address] Vinayak Yanez M.D. Director [facility] # [id number] 20 SEE RESULT BELOW Name: SHOELAYNEPRICE : [address]: Jessie Lazar MD Acct: [id number] Unit: [id number] AGE: 60 Location: [place] [address]- Re10/13/15 Dis: 10/19/15 SEX: M Status: DIS IN SPEC: [id number] GABO: 10/13/15-[address] [facility] [address]: Jessie Lazar MD REQ: [id number] RECD: 10/13/15 STATUS: RES OTHR DR: Gabbie Shell MD _ SOURCE: WOUND SPDESC:KNEE LEFT ORDERED: Tissue Cult/GS/R, Fungal - Other/R, Acid Fast Stain/U COMMENTS: CLOSTRIDIUM FINDINGS IN ADDITION TO S. AUREUS: Verbal to DR. SHELL by [id number] at 1411 on 10/15/15. Results read back [...] performed at Main Lab DEPARTMENT OF PATHOLOGY, [address] [place] [address] iVnayak Yanez M.D. Director [facility] # [id number] Patient: PRICE GUARDADO [id number] (Continued) Specimen: [id number] Collected: 10/13/15 Received: 10/13/15-1755 (Continued) Procedure Result Reported Site Acid Fast Stain - Direct Final (continued) 10/14/15817 Due to limited sensitivity of the smear, results should be used as an adjunct in evaluating the patient's status and cultural examination is highly recommended for diagnosis. * ML - MAIN LAB ([facility]) . END OF REPORT * ML=Testing performed at Main Lab DEPARTMENT OF PATHOLOGY, [address] [place] [address] Vinayak Yanez M.D. Director [facility] # [id number] 21 SEE RESULT BELOW Name: PRICE GUARDADO : [address]: Jessie Lazar MD Acct: [id number] Unit: [id number] AGE: 60 Location: [facility] 338- Re10/13/15 SEX: M Status: ADM IN SPEC: [id number] GABO: 10/13/15-[address] [facility] [address]: Jessie Lazar MD REQ: [id number] RECD: 10/13/15 STATUS: RES OTHR DR: Gabbie Shell MD _ SOURCE: WOUND SPDESC:KNEE LEFT ORDERED: Anaerobic Cult/R, MRSA/SA SSTI/R, Culture Stain/R, Fungal - Other /R, Acid Fast Stain/U COMMENTS: Verbal to GEMINI CHAWLA by [id number] at 2020 on 10/13/15. Results read back [...] performed at Main Lab DEPARTMENT OF PATHOLOGY, [address] [place] [address] Vinayak Yanez M.D. Director [facility] # [id number] Patient: PRICE GUARDADO [id number] (Continued) Specimen: [id number] Collected: 10/13/15 Received: 10/13/15 (Continued) Procedure Result Reported Site Acid Fast Stain - Direct Final (continued) 10/14/15809 Due to limited sensitivity of the smear, results should be used as an adjunct in evaluating the patient's status and cultural examination is highly recommended for diagnosis. * ML - MAIN LAB ([facility]) . END OF REPORT * ML=Testing performed at Main Lab DEPARTMENT OF PATHOLOGY, [address] [place] [address] Vinayak Yanez M.D. Director [facility] # [id number] 22 SEE RESULT BELOW Name: PRICE GUARDADO : [address]: Jessie Lazar MD Acct: [id number] Unit: [id number] AGE: 60 Location: [place] [address]- Re10/13/15 Dis: 10/19/15 SEX: M Status: DIS IN SPEC: [id number] GABO: 10/13/15-[address] [facility] [address]: Jessie Laazr MD REQ: [id number] RECD: 10/13/15 STATUS: RES OTHR DR: Gabbie Shell MD _ SOURCE: WOUND SPDESC:KNEE LEFT ORDERED: Anaerobic Cult/R, MRSA/SA SSTI/R, Culture Stain/R, Fungal - Other /R, Acid Fast Stain/U COMMENTS: Verbal to GEMINI CHAWLA by [id number] at 2020 on 10/13/15. Results read back accurately. CLOSTRIDIUM FINDINGS IN ADDITION TO S. AUREUS: Verbal to DR. SHELL by [id number] at 1411 on 10/15/15. Results read back accurately. Procedure Result Reported Site Anaerobic Culture Final 10/17/15- 0835 ML Organism 1 CLOSTRIDIUM PERFRINGENS Quantity 3+ [...] ON NEXT PAGE * ML=Testing performed at [facility] Lab DEPARTMENT OF PATHOLOGY, [address] [place] [address] Vinayak Yanez M.D. Director [facility] # [id number] Patient: PRICE GUARDADO [id number] (Continued) Specimen: [id number] Collected: 10/13/15 Received: 10/13/15 (Continued) Procedure Result Reported Site Wound/Misc Culture Final (continued) 10/15/15- 845 Organism 1 STAPHYLOCOCCUS AUREUS Quantity 3+ 1. [...] These antibiotics are not available in the [facility] Formulary Contact the Microbiology Department for any additional antibiotic reporting. Fungal Cult - Other Sources Preliminary 10/31/15- 1443 ML Fungal Culture No Growth of Mycotic Organisms 2 weeks Acid Fast Stain - Direct Final 10/14/15- 0810 ML CONTINUED ON NEXT PAGE * ML=Testing performed at Main Lab DEPARTMENT OF PATHOLOGY, [address] [place] [address] Vinayak Yanez M.D. Director [facility] # [id number] Patient: PRICE GUARDADO [id number] (Continued) Specimen: [id number] Collected: 10/13/15 Received: 10/13/15 (Continued) Procedure Result Reported Site Acid Fast Stain - Direct Final (continued) 10/14/15809 AFB Smear Result No Acid Fast Bacillus Present (Negative) Preparation By Direct Smear Due to limited sensitivity of the smear, results should be used as an adjunct in evaluating the patient's status and cultural examination is highly recommended for diagnosis. * ML - MAIN LAB ([facility]) . END OF REPORT * ML=Testing performed at Main Lab DEPARTMENT OF PATHOLOGY, [address] [place] [address] Vinayak Yanez M.D. Director [facility] # [id number] 23 SEE RESULT BELOW Name: PRICE GUARDADO : [address]: Jessie Lazar MD Acct: [id number] Unit: [id number] AGE: 60 Location: [facility] Re10/13/15 SEX: M Status: REG SDC SPEC: [id number] GABO: 10/13/15-[address] [facility] [address]: Jessie Lazar MD REQ: [id number] RECD: 10/13/15 STATUS: RES [facility] DR: Gabbie Shell MD _ SOURCE: WOUND SPDESC:KNEE LEFT ORDERED: Anaerobic Cult/R, MRSA/SA SSTI/R, Culture Stain/R, Fungal - Other /R, Acid Fast Stain/U Procedure Result Reported Site Anaerobic Culture PENDING MRSA/S. aureus SSTI PCR PENDING Wound/Misc Gram Stain Final 10/13/15- 1845 ML 3+ Neutrophils 4+ Gram Positive Cocci 3+ Gram Positive Bacilli 1+ Gram Negative Bacilli Wound/Misc Culture PENDING Fungal Cult - Other Sources PENDING Acid Fast Stain - Direct PENDING * ML - MAIN LAB ([facility]) . END OF REPORT * ML=Testing performed at Main Lab DEPARTMENT OF PATHOLOGY, [address] [place] [address] Vinayak Yanez M.D. Director [facility] # [id number] 24 SEE RESULT BELOW Name: PRICE GUARDADO : [address]: Jessie Lazar MD Acct: [id number] Unit: [id number] AGE: 60 Location: [facility] 338-01 Re10/13/15 Dis: 10/19/15 SEX: M Status: DIS IN SPEC: [id number] GABO: 10/13/15-[address] [facility] [address]: Jessie Lazar MD REQ: [id number] RECD: 10/13/15 STATUS: RES OTHR DR: Gabbie Shell MD _ SOURCE: WOUND SPDESC:KNEE LEFT ORDERED: Tissue Cult/GS/R, Fungal - Other/R, Acid Fast Stain/U COMMENTS: CLOSTRIDIUM FINDINGS IN ADDITION TO S. AUREUS: Verbal to DR. SHELL by [id number] at 1411 on 10/15/15. Results read back [...] performed at Main Lab DEPARTMENT OF PATHOLOGY, [address] [place] [address] Vinayak Yanez M.D. Director [facility] # [id number] Patient: PRICE GUARDADO [id number] (Continued) Specimen: [id number] Collected: 10/13/15-1639 Received: 10/13/15 (Continued) Procedure Result Reported Site Acid Fast Stain - Direct Final (continued) 10/14/15- 817 Due to limited sensitivity of the smear, results should be used as an adjunct in evaluating the patient's status and cultural examination is highly recommended for diagnosis. * ML - MAIN LAB ([facility]) . END OF REPORT * ML=Testing performed at Main Lab DEPARTMENT OF PATHOLOGY, [address] [place] [address] Vinayak Yanez M.D. Director [facility] # [id number] 25 SEE RESULT BELOW Name: PRICE GUARDADO : [address]: Jessie Lazar MD Acct: [id number] Unit: [id number] AGE: 60 Location: [place] [address] Re10/13/15 SEX: M Status: ADM IN SPEC: [id number] GABO: 10/13/15-[address] [facility] [address]: Jessie Lazar MD REQ: [id number] RECD: 10/13/15 STATUS: RES OTHR DR: Gabbie Shell MD _ SOURCE: WOUND SPDESC:KNEE LEFT ORDERED: Anaerobic Cult/R, MRSA/SA SSTI/R, Culture Stain/R, Fungal - Other /R, Acid Fast Stain/U COMMENTS: Verbal to GEMINI CHAWLA by [id number] at 2020 on 10/13/15. Results read back [...] performed at Main Lab DEPARTMENT OF PATHOLOGY, [address] [place] [address] Vinayak Yanez M.D. Director [facility] # [id number] Patient: PRICE GUARDADO [id number] (Continued) Specimen: [id number] Collected: 10/13/15 Received: 10/13/15 (Continued) Procedure Result Reported Site Acid Fast Stain - Direct Final (continued) 10/14/15 Due to limited sensitivity of the smear, results should be used as an adjunct in evaluating the patient's status and cultural examination is highly recommended for diagnosis. * ML - MAIN LAB ([facility]) . END OF REPORT * ML=Testing performed at Main Lab DEPARTMENT OF PATHOLOGY, [address] [place] [address] Vinayak Yanez M.D. Director [facility] # [id number] 26 SEE RESULT BELOW Name: PRICE GUARDADO : [address]: Jessie Lazar MD Acct: [id number] Unit: [id number] AGE: 60 Location: [facility] 338-01 Re10/13/15 Dis: 10/19/15 SEX: M Status: DIS IN SPEC: [id number] GABO: 10/13/15-[address] [facility] [address]: Jessie Lazar MD REQ: [id number] RECD: 10/13/15657 STATUS: RES OTHR DR: Gabbie Shell MD _ SOURCE: WOUND SPDESC:KNEE LEFT ORDERED: Anaerobic Cult/R, MRSA/SA SSTI/R, Culture Stain/R, Fungal - Other /R, Acid Fast Stain/U COMMENTS: Verbal to GEMINI CHAWLA by [id number] at 2020 on 10/13/15. Results read back accurately. CLOSTRIDIUM FINDINGS IN ADDITION TO S. AUREUS: Verbal to DR. SHELL by [id number] at 1411 on 10/15/15. Results read back [...] performed at Main Lab DEPARTMENT OF PATHOLOGY, [address] [place] [address] Vinayak Yanez M.D. Director [facility] # [id number] Patient: PRICE GUARDADO [id number] (Continued) Specimen: [id number] Collected: 10/13/15-1639 Received: 10/13/15175 (Continued) Procedure Result Reported Site Wound/Misc Culture [...] These antibiotics are not available in the [facility] Formulary Contact the Microbiology Department for any additional antibiotic reporting. Fungal Cult - Other Sources Preliminary 11/07/15- 1229 ML Fungal Culture No Growth of Mycotic Organisms 3 weeks Acid Fast Stain - Direct Final 10/14/15- 0810 ML CONTINUED ON NEXT PAGE * ML=Testing performed at Main Lab DEPARTMENT OF PATHOLOGY, [address] [place] [address] Vianyak Yanez M.D. Director [facility] # [id number] Patient: PRICE GUARDADO [id number] (Continued) Specimen: [id number] Collected: 10/13/15-1639 Received: 10/13/15175 (Continued) Procedure Result Reported Site Acid Fast Stain - Direct Final (continued) 10/14/15809 AFB Smear Result No Acid Fast Bacillus Present (Negative) Preparation By Direct Smear Due to limited sensitivity of the smear, results should be used as an adjunct in evaluating the patient's status and cultural examination is highly recommended for diagnosis. * ML - MAIN LAB ([facility]) . END OF REPORT * ML=Testing performed at Main Lab DEPARTMENT OF PATHOLOGY, [address] [place] [address] Vinayak Yanez M.D. Director [facility] # [id number] 27 SEE RESULT BELOW Name: PRICE GUARDADO : [address]: Jessie Lazar MD Acct: [id number] Unit: [id number] AGE: 60 Location: [facility] Re/14/16 SEX: M Status: REG SDC SPEC: [id number] GABO: 10/13/15-[address] [facility] [address]: Jessie Lazar MD REQ: [id number] RECD: 10/13/15 STATUS: RES OTHR DR: Gabbie Shell MD _ SOURCE: WOUND SPDESC:KNEE LEFT ORDERED: Anaerobic Cult/R, MRSA/SA SSTI/R, Culture Stain/R, Fungal - Other /R, Acid Fast Stain/U Procedure Result Reported Site Anaerobic Culture PENDING MRSA/S. aureus SSTI PCR PENDING Wound/Misc Gram Stain Final 10/13/15- 8265 ML 3+ Neutrophils 4+ Gram Positive Cocci 3+ Gram Positive Bacilli 1+ Gram Negative Bacilli Wound/Misc Culture PENDING Fungal Cult - Other Sources PENDING Acid Fast Stain - Direct PENDING * ML - MAIN LAB ([facility]) . END OF REPORT * ML=Testing performed at Main Lab DEPARTMENT OF PATHOLOGY, [address] [place] [address] Vinayak Yanez M.D. Director [facility] # [id number] 28 SEE RESULT BELOW Name: PRICE GUARDADO : [address]: Jessie Lazar MD Acct: [id number] Unit: [id number] AGE: 60 Location: [facility] 338- Re10/13/15 Dis: 10/19/15 SEX: M Status: DIS IN SPEC: [id number] GABO: 10/13/15-[address] [facility] [address]: Jessie Lazar MD REQ: [id number] RECD: 10/13/15979 STATUS: COMP OTHR DR: Gabbie Shell MD _ SOURCE: WOUND SPDESC:KNEE LEFT ORDERED: Tissue Cult/GS/R, Fungal - Other/R, Acid Fast Stain/U COMMENTS: CLOSTRIDIUM FINDINGS IN ADDITION TO S. AUREUS: Verbal to DR. SHELL by [id number] at 1411 on 01/16/16. Results read back accurately. Procedure Result Reported [...] performed at Main Lab DEPARTMENT OF PATHOLOGY, [address] [place] [address] Vinayak Yanez M.D. Director [facility] # [id number] Patient: PRICE GUARDADO [id number] (Continued) Specimen: [id number] Collected: 10/13/15 Received: 10/13/15 (Continued) Procedure Result Reported Site Acid Fast Stain - Direct Final (continued) 10/14/15817 Due to limited sensitivity of the smear, results should be used as an adjunct in evaluating the patient's status and cultural examination is highly recommended for diagnosis. * ML - MAIN LAB ([facility]) . END OF REPORT * ML=Testing performed at Main Lab DEPARTMENT OF PATHOLOGY, [address] [place] [id number] Vinayak Yanez M.D. Director [facility] # [id number] 29 SEE RESULT BELOW Name: DEBBYPRICE C : [address]: Jessie Lazar MD Acct: [id number] Unit: [id number] AGE: 60 Location: [place] [address]- Re10/13/15 SEX: M Status: ADM IN SPEC: [id number] GABO: 10/13/15-[address] [facility] [address]: Jessie Lazar MD REQ: [id number] RECD: 10/13/15 STATUS: RES OTHR DR: Gabbie Shell MD _ SOURCE: WOUND SPDESC:KNEE LEFT ORDERED: Anaerobic Cult/R, MRSA/SA SSTI/R, Culture Stain/R, Fungal - Other /R, Acid Fast Stain/U COMMENTS: Verbal to GEMINI CHAWLA by [id number] at 2020 on 10/13/15. Results read back accurately. Procedure Result Reported Site Anaerobic Culture PENDING MRSA/S. aureus SSTI PCR Final 10/13/15- 2017 ML Organism 1 MRSA NEGATIVE Organism 2 S.AUREUS POSITIVE Wound/Misc Gram Stain Final 10/13/15- 1846 ML 3+ Neutrophils 4+ Gram Positive Cocci 3+ Gram Positive Bacilli 1+ Gram Negative Bacilli Wound/Misc Culture Preliminary 10/14/15- 133 ML Organism 1 STAPHYLOCOCCUS AUREUS Quantity 3+ Fungal Cult - Other Sources PENDING Acid Fast Stain - Direct Final 10/14/15- 0810 ML AFB Smear Result No Acid Fast Bacillus Present (Negative) Preparation By Direct Smear CONTINUED ON NEXT PAGE * ML=Testing performed at Main Lab DEPARTMENT OF PATHOLOGY, [address] [place] [address] Vinayak Yanez M.D. Director [facility] # [id number] Patient: PRICE GUARDADO [id number] (Continued) Specimen: [id number] Collected: 10/13/15-1639 Received: 10/13/15 (Continued) Procedure Result Reported Site Acid Fast Stain - Direct Final (continued) 10/14/15809 Due to limited sensitivity of the smear, results should be used as an adjunct in evaluating the patient's status and cultural examination is highly recommended for diagnosis. * ML - MAIN LAB ([facility]) . END OF REPORT * ML=Testing performed at Main Lab DEPARTMENT OF PATHOLOGY, [address] [place] [address] Vinayak Yanez M.D. Director [facility] # [id number] 30 SEE RESULT BELOW Name: PRICE GUARDADO : [address]: Jessie Lazar MD Acct: [id number] Unit: [id number] AGE: 60 Location: [place] [address] Re10/13/15 Dis: 10/19/15 SEX: M Status: DIS IN SPEC: [id number] GABO: 10/13/15-[address] [facility] [address]: Jessie Lazar MD REQ: [id number] RECD: 10/13/15 STATUS: COMP [facility] DR: Gabbie Shell MD _ SOURCE: WOUND SPDESC:KNEE LEFT ORDERED: Anaerobic Cult/R, MRSA/SA SSTI/R, Culture Stain/R, Fungal - Other /R, Acid Fast Stain/U COMMENTS: Verbal to GEMINI CHAWLA by [email or web address] at 2020 on 10/13/15. Results read back accurately. CLOSTRIDIUM FINDINGS IN ADDITION TO S. AUREUS: Verbal to DR. SHELL by [id number] at 1411 on 10/15/15. Results read back [...] performed at Main Lab DEPARTMENT OF PATHOLOGY, [address] [place] [address] Vinayak Yanez M.D. Director [facility] # [id number] Patient: PRICE GUARDADO [id number] (Continued) Specimen: [id number] Collected: 10/13/15-1639 Received: 10/13/15175 (Continued) Procedure Result Reported Site Wound/Misc Culture [...] These antibiotics are not available in the [facility] Formulary Contact the Microbiology Department for any additional antibiotic reporting. Fungal Cult - Other Sources Final 11/14/15- 1426 ML Fungal Culture No Growth of Mycotic Organisms 4 weeks Acid Fast Stain - Direct Final 10/14/15 08 ML CONTINUED ON NEXT PAGE * ML=Testing performed at Main Lab DEPARTMENT OF PATHOLOGY, [address] [place] [address] Vinayak Yanez M.D. Director [facility] # [id number] Patient: PRICE GUARDADO [id number] (Continued) Specimen: [id number] Collected: 10/13/15 Received: 10/13/15175 (Continued) Procedure Result Reported Site Acid Fast [...] performed at Main Lab DEPARTMENT OF PATHOLOGY, [address] [place] [address] Vinayak Yanez M.D. Director [facility] # [id number] 31 SOURCE: KNEE, KNEE WOUND SWAB MYCOBACTERIAL CULTURE FINAL No growth after 60 days of incubation. Test Performed by: [place] [address] [employer] Weaver: Cam Isidro II, M.D., Ph.D. Procedures Date CPT Code Description Status 04/24/2018 24126 Amputation,Toe;Interphalangeal Joint Completed 04/24/2018 05164 Amputation,Toe;Interphalangeal Joint Completed 04/24/2018 08158 Amputation,Toe;Interphalangeal Joint Completed 04/24/2018 22804 Amputation,Toe;Interphalangeal Joint Completed 04/18/2018 16294 Moderate Sedation Services; Same Phys Each Additional Completed 15 Mins 04/18/2018 47691 Moderate Sedation Services; Same Phys Intl 15 Mins; PT Completed >=5 Years 04/18/2018 81613 Ultrasound Guidance For Vascular Access Completed 04/18/2018 04898 Angio Extremity, Bilateral Completed 04/18/2018 60917 Revascularization,Endovascular W/Atherectomy, Inc Completed Angioplasty 04/18/2018 30358 Revascularization,Endovascular W/Atherectomy, Inc Completed Angioplasty 12/10/2016 40955 ECHO Transthorasic Realtime 2D W Doppler & Color Flow Completed Hosp 12/09/2016 81558 EKG, Interpretation Only Completed 01/10/2016 05017 Stress Test Supervsn W/Out I/R Completed 01/10/2016 97756 Treadmill Interp/Report Only Completed 10/15/2015 40902 Arthroscopy,Knee For Infection,Lavage & Drainage Completed 10/15/2015 99897 Arthroscopy,Knee For Infection,Lavage & Drainage Completed 10/15/2015 35608 Arthroscopy,Knee For Infection,Lavage & Drainage Completed 10/15/2015 82879 Arthroscopy,Knee For Infection,Lavage & Drainage Completed 10/13/2015 41259 Arthroscopy,Knee,Meniscectomy Medial Or Lateral Completed 10/13/2015 57004 Arthroscopy,Knee,Meniscectomy Medial Or Lateral Completed 10/13/2015 53857 Arthroscopy,Knee For Infection,Lavage & Drainage Completed 05/18/2013 54563 EEG Recording Awake & Asleep Completed 03/13/2013 90498 Color Flow Doppler/Interp & Reprt Completed 03/13/2013 70317 Pulse Wave/Continuous-Interp.RPT Completed 03/13/2013 01723 Echocardiography, Transesophageal, Real Time W/Image 2D Completed W/W/O M-M Encounters Type Date Location Provider CPT E/M Dx [facility] [address] Z89.412 1:40p Infectious Diseases Gabrielle García E11.52 Office Visit 04/22/2018 1:30p [facility] [place] [address] M86.172 [facility] Office Visit 04/19/2018 9:33a [facility] [place] [address] Z47.89 C[facility] Office Visit 04/19/2018 11:31a [facility] [place] [address] L97.513 Assoc, Hospitalists E11.52 I73.9 Office Visit 04/18/2018 11:30a [facility] Aldo Lambert, 57078 L97.513 Assoc,pc Hospitalists [place] E11.52 I73.9 F32.9 G25.0 Office Visit 04/17/2018 11:30a [facility] Assoc,pc Joe Ramírez, [address]9541 L97.513 Hospitalists Gabrielle E11.52 Office Visit 04/16/2018 1:09p [facility] Assoc,pc Steffanie Larsen [address]75[address] I73.9 Hospitalists MARJORIE Bradley E11.51 Office Visit 04/16/2018 9:11a [facility] Richardson Mahan, [address] I70.213 Of Pal Anthony M87.878 Office Visit 04/15/2018 2:11p [facility] SAIDA Rea [address] M87.078 C.M[facility]A. L03.032 Office Visit 04/15/2018 11:29a [facility] [address] L97.513 Hospitalists E11.9 F32.9 Office Visit 04/15/2018 12:44p [facility] Madalyn García, 29006 E11.52 Elizabeth Umanzor M.D. Z86.73 Office Visit 12/10/2016 2:49p [facility] [address] G45.9 Office Visit 12/10/2016 3:56p [facility], Tiffanie Hope, 30555 R07.2 Hospitalists [employer] SAL[employer]IST R55 E11.9 G45.9 Office Visit 12/09/2016 1:48p [facility] Sae Major, 70701 G45.9 M.D. Office Visit 12/09/2016 3:55p [facility], rOlin Junior [address]306 R55 Hospitalstephan LI M.D. 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 82719 R07.9 Hospitalists E11.9 N17.9 I10 Office Visit 11/30/2015 3:20p [facility] Madalyn Jordan 75594 M00.062 Infectious Noé García M.D. Office Visit 11/16/2015 3:20p [facility] Madalyn Jordan 49033 M00.062 Infectious Noé García M.D. B96.7 Office Visit 11/03/2015 2:00p [facility] Madalyn Jordan 77291 M00.062 Elizabeth García M.D. M00.062 Office Visit 10/19/2015 9:02a [facility] Madalyn Jordan [address]9623 M00.062 Infectious Noé García M.D. L02.416 Office Visit 10/19/2015 10:02a [facility] [place] [address] M00.062 Assoc, Hospitalists B96.7 E11.8 Office Visit 10/18/2015 8:56a [facility] Jamar Jordan 81836 M00.062 Infectious Diseases Gabrielle García R19.7 V99.xxxA B96.7 Office Visit 10/18/2015 10:02a [facility] Assoc, [place], [address] M00.062 Hospitalists Gabrielle E11.8 B96.7 Office Visit 10/17/2015 10:01a [facility] Assoc, [place], [address] M00.062 Hospitalists Gabrielle B96.7 E11.8 Office Visit 10/16/2015 10:00a [facility] Assoc, [place], [address]157 M00.062 Hospitalists MFreda B96.7 E11.8 Office Visit 10/15/2015 10:00a [facility] Assoc, [place], 609[address] M00.062 Hospitalists Gabrielle B96.7 E11.8 Office Visit 10/14/2015 9:59a [facility] Assoc, Nasima [place], 42318 M00.062 Hospitalists D.O. E11.8 Office Visit 10/13/2015 9:58a [facility] Tiffanie Hope, 05024 M00.062 Assoc, Hospitalists [employer] SAL[employer] SPECIALIST E11.8 Office Visit 10/13/2015 7:00a [facility] [place] [address] M25.562 C.M.A. M25.462 S81.012A B96.89 Office Visit 07/29/2013 8:30a [facility] [place], 238[address] 333.1 Services Of [employer] M.D. Office Visit 06/19/2013 11:30a [facility] [place] 62014 437.9 Services Of [employer] M.D. Office Visit 05/12/2013 10:45a [facility] [place] [address] 345.40 Services [facility] [employer] Gabrielle 438.89 331.83 Office Visit 03/13/2013 12:53p [facility] [place] [address] 435.9 Services Of [employer] M.D. Office Visit 03/13/2013 2:43p [facility] Nasima Colmenares, 16589 784.51 Assoc, Hospitalists D.O. 272.2 435.9 305.1 Office Visit 03/12/2013 12:52p [facility] [place], [address]39 435.9 Services Of [facility] M.D. Office Visit 03/12/2013 2:42p [facility] Michelle Siu, 77290 784.51 Assoc, Hospitalists 272.2 434.11 305.1 Plan of Care Future Appointment(s):05/29/2018 3:45 pm - USMAN Strange at [facility]05/29/2018 3:45 pm - Jose Juan King MD at [facility]05/27/2018 - [facility] King MDL03.116 Cellulitis of left lower limbFollow up:Follow Up:T81.31xA Disruption of external operation ( surgical) wound, NEC, init
--- OUTSIDE RECORDS SUMMARY | 2018-05-27 17:07 | XMS REPORT ---
:1955 External Reference #:[id number] Author Organization [employer] Address [address] [place] [address] [place] [address] Phone [phone] Care Team Providers Name Role Phone Gabbie Shell MD Primary Care Physician Unavailable Payers Type Date Identification Numbers Payment Provider Subscriber Commercial Effective: Policy Number: [id number] salome-[facility] Maryam Guardado 2010 PayID: [id number] [address] [place] [address] Medigap Part B Policy Number: [id number] Medicare Price Guardado PayID: [id number] [address] [place] [address] Medigap Part B Expires: 2018 Policy Number: [employer] Maryam Waterman [id number] Debby Group Number: [id number] [address] PayID: [id number] [place] [address] Workers Compensation Onset: 2015 Policy Number: Jorden Price Guardado [id number] Group Number: [id number] [address] PayID: [id number] [place] [address] Problems Date Description Provider Status Onset: 04/24/2018 [...] 05/05/ Active Capsules 250mg 30caps Take 1 [facility] 2018 capsule chanell King MD Oxycodone HCL 04/24/ Active Tablets 5mg 15tabs 1 tab [facility] 2018 every 4-6 jose King as [...] 05/02/ Hx Capsules 300mg 30caps Take 1 [facility] 2017 - Capsule Fernando, 05/07/ By [...] po Unknown 0000 - daily 2012 Lipitor 00/00/ Hx Tablets 20mg 90tabs one tab Unknown 0000 - po qhs 2015 Aspirin 00/00/ Hx 325mg 1 tab po Unknown 0000 - daily 2015 Clindamycin HCL 00/00/ Hx Capsules 300mg 1 capsule Unknown 0000 - by mouth 2016 times a day Cefazolin 0000/ Hx Solution 1gm 2 gm iv Unknown Sodium 0000 - Rec every 11/16/ hours 2016 Percocet 0000/ Hx Tablets 5-325mg 1 by Unknown 0000 - mouth 04/21/ every 2018 hours as needed pain Bentyl 0000/ Hx Capsules 10mg take 1 Unknown 0000 - tablet by 2015 with every meal Tramadol HCL 00/ Hx Tablets 50mg 1 tablets Unknown 0000 - every 6 04/06/ hours as 2016 needed Levofloxacin 00/ Hx Tablets 750mg Take 1 Unknown 0000 - Tablet By Mouth 2017 Every Day Clindamycin HCL 00/00/ Hx Capsules 300mg Take 1 Unknown 0000 - Capsule By Mouth 2017 Three Times Daily Metronidazole 00/00/ Hx Tablets 500mg Take 1 Unknown 0000 - Tablet By 04/21/ Mouth 2017 Three Times Daily Vital Signs Date Vital Result Comment 05/09/2018 Height 66 inches 5'6" Weight 182.00 [...] Attend Dr: Jose Juan King MD Acct: [id number] Unit: [id number] AGE: 62 Location: [place] Re04/24/18 SEX: M Status: [place]P [facility] SPEC: [id number] GABO: 04/24/18- [facility] DR: Jose Juan King MD REQ: [id number] RECD: 04/24/181440 STATUS: SOUT _ ORDERED: Decal, LEVEL 4 [...] margin blue and plantar margin black, and clearance representative sections are submitted in cassettes A and B to include bone following decalcification in cassette A. Signed by and Reported on: Abby Ellis MD 04/29/18 1052 END OF REPORT DEPARTMENT OF PATHOLOGY, [address] [place] [address] Vinayak Yanez M.D. 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 END OF REPORT * ML=Testing performed at Main Lab DEPARTMENT OF PATHOLOGY, [address] [place] [address] Vinayak Yanez M.D. Director [facility] # [id number] 16 SEE RESULT BELOW Name: PRICE GUARDADO : [address]: Jessie Lazar MD Acct: [id number] Unit: [id number] AGE: 60 Location: [facility] 338-01 Re10/13/15 Dis: 10/19/15 SEX: M Status: DIS IN SPEC: [id number] GABO: 10/13/15-[address] [facility] [address]: Jessie Lazar MD REQ: [id number] RECD: 10/13/15384 STATUS: RES OTHR DR: Gabbie Shell MD _ SOURCE: WOUND SPDESC:KNEE LEFT ORDERED: Tissue Cult/GS/R, Fungal - Other/R, Acid Fast Stain/U COMMENTS: CLOSTRIDIUM FINDINGS IN ADDITION TO S. AUREUS: Verbal to DR. SHELL by [id number] at 1411 on 10/15/15. Results read back [...] performed at Main Lab DEPARTMENT OF PATHOLOGY, [address] [place] [address] Vinayak Yanez M.D. Director [facility] # [id number] Patient: PRICE GUARDADO [id number] (Continued) Specimen: [id number] Collected: 10/13/15-1639 Received: 10/13/15 (Continued) Procedure Result Reported Site Acid Fast Stain - Direct Final (continued) 10/14/15817 Due to limited sensitivity of the smear, results should be used as an adjunct in evaluating the patient's status and cultural examination is highly recommended for diagnosis. * ML - MAIN LAB ([facility]) . END OF REPORT * ML=Testing performed at Main Lab DEPARTMENT OF PATHOLOGY, [address] [place] [address] Vinayak Yanez M.D. Director [facility] # [id number] 17 SEE RESULT BELOW Name: PRICE GUARDADO : [address]: Jessie Lazar MD Acct: [id number] Unit: [id number] AGE: 60 Location: [place] [address] Re10/13/15 SEX: M Status: ADM IN SPEC: [id number] GABO: 10/13/15-[address] [facility] [address]: Jessie Lazar MD REQ: [id number] RECD: 10/13/15 STATUS: RES OTHR DR: Gabbie Shell MD _ SOURCE: WOUND SPDESC:KNEE LEFT ORDERED: Anaerobic Cult/R, MRSA/SA SSTI/R, Culture Stain/R, Fungal - Other /R, Acid Fast Stain/U COMMENTS: Verbal to GEMINI CHAWLA by [id number] at 2020 on 10/13/15. Results read back [...] performed at Main Lab DEPARTMENT OF PATHOLOGY, [address] [place] [address] Vinayak Yanez M.D. Director [facility] # [id number] Patient: PRICE GUARDADO [id number] (Continued) Specimen: [id number] Collected: 10/13/15-1640 Received: 10/13/15 (Continued) Procedure Result Reported Site Acid Fast Stain - Direct Final (continued) 10/14/15809 Due to limited sensitivity of the smear, results should be used as an adjunct in evaluating the patient's status and cultural examination is highly recommended for diagnosis. * ML - MAIN LAB ([facility]) . END OF REPORT * ML=Testing performed at Main Lab DEPARTMENT OF PATHOLOGY, [address] [place] [address] Vinayak Yanez M.D. Director [facility] # [id number] 18 SEE RESULT BELOW Name: PRICE GUARDADO : [address]: Jessie Lazar MD Acct: [id number] Unit: [id number] AGE: 60 Location: [facility] 338-01 Re10/13/15 Dis: 10/19/15 SEX: M Status: DIS IN SPEC: [id number] GABO: 10/13/15-[address] [facility] [address]: Jessie Lazar MD REQ: [id number] RECD: 10/13/15 STATUS: RES OTHR DR: Gabbie Shell MD _ SOURCE: WOUND SPDESC:KNEE LEFT ORDERED: Anaerobic Cult/R, MRSA/SA SSTI/R, Culture Stain/R, Fungal - Other /R, Acid Fast Stain/U COMMENTS: Verbal to GEMINI CHAWLA by [id number] at 2020 on 10/13/15. Results read back accurately. CLOSTRIDIUM FINDINGS IN ADDITION TO S. AUREUS: Verbal to DR. SHELL by [id number] at 1411 on 10/15/15. Results read back accurately. Procedure Result Reported Site Anaerobic Culture Final 10/17/15- 08 ML Organism 1 CLOSTRIDIUM PERFRINGENS Quantity 3+ [...] performed at Main Lab DEPARTMENT OF PATHOLOGY, [address] [place] [address] Vinayak Yanez M.D. Director [facility] # [id number] Patient: PRICE GUARDADO [id number] (Continued) Specimen: [id number] Collected: 10/13/15 Received: 10/13/15175 (Continued) Procedure Result [...] These antibiotics are not available in the [facility] Formulary Contact the Microbiology Department for any additional antibiotic reporting. Fungal Cult - Other Sources Preliminary 10/24/15- 1325 ML Fungal Culture No Growth of Mycotic Organisms 1 week Acid Fast Stain - Direct Final 10/14/15- 0810 ML CONTINUED ON NEXT PAGE * ML=Testing performed at Main Lab DEPARTMENT OF PATHOLOGY, [address] [place] [address] Vinayak Yanez M.D. Director [facility] # [id number] Patient: PRICE GUARDADO [id number] (Continued) Specimen: [id number] Collected: 10/13/15 Received: 10/13/15 (Continued) Procedure Result Reported Site Acid Fast Stain - Direct Final (continued) 10/14/15809 AFB Smear Result No Acid Fast Bacillus Present (Negative) Preparation By Direct Smear Due to limited sensitivity of the smear, results should be used as an adjunct in evaluating the patient's status and cultural examination is highly recommended for diagnosis. * ML - MAIN LAB (PSYCHIATRIC1) . END OF REPORT * ML=Testing performed at Main Lab DEPARTMENT OF PATHOLOGY, [address] [place] [address] Vinayak Yanez M.D. Director [facility] # [id number] 19 SEE RESULT BELOW Name: PRICE GUARDADO : [address]: Jessie Lazar MD Acct: [id number] Unit: [id number] AGE: 60 Location: [facility] Re10/13/15 SEX: M Status: REG SDC SPEC: [id number] GABO: 10/13/15-[address] [facility] [address]: Jessie Lazar MD REQ: [id number] RECD: 10/13/15999 STATUS: RES OTHR DR: Gabbie Shell MD [...] Direct PENDING * ML - MAIN LAB (PSYCHIATRIC1) . END OF REPORT * ML=Testing performed at Main Lab DEPARTMENT OF PATHOLOGY, [address] [place] [address] Vinayak Yanez M.D. Director [facility] # [id number] 20 SEE RESULT BELOW Name: PRICE GUARDADO : [address]: Jessie Lazar MD Acct: [id number] Unit: [id number] AGE: 60 Location: [facility] 338-01 Re10/13/15 Dis: 10/19/15 SEX: M Status: DIS IN SPEC: [id number] GABO: 10/13/15-[address]: Jessie Lazar MD REQ: [id number] RECD: 10/13/15 STATUS: RES OTHR DR: Gabbie Shell MD _ SOURCE: WOUND SPDESC:KNEE LEFT ORDERED: Tissue Cult/GS/R, Fungal - Other/R, Acid Fast Stain/U COMMENTS: CLOSTRIDIUM FINDINGS IN ADDITION TO S. AUREUS: Verbal to DR. SHELL by [id number] at 1411 on 10/15/15. Results read back [...] performed at Main Lab DEPARTMENT OF PATHOLOGY, [address] [place] [address] Vinayak Yanez M.D. Director [facility] # [id number] Patient: PRICE GUARDADO [id number] (Continued) Specimen: [id number] Collected: 10/13/15 Received: 10/13/15-175 (Continued) Procedure Result Reported Site Acid Fast Stain - Direct Final (continued) 10/14/15- 817 Due to limited sensitivity of the smear, results should be used as an adjunct in evaluating the patient's status and cultural examination is highly recommended for diagnosis. * ML - MAIN LAB ([facility]) . END OF REPORT * ML=Testing performed at Main Lab DEPARTMENT OF PATHOLOGY, [address] [place] [address] Vinayak Yanez M.D. Director [facility] # [id number] 21 SEE RESULT BELOW Name: PRICE GUARDADO : [address]: Jessie Lazar MD Acct: [id number] Unit: [id number] AGE: 60 Location: [facility] 338-01 Re10/13/15 SEX: M Status: ADM IN SPEC: [id number] GABO: 10/13/15-[address]: Jessie Lazar MD REQ: [id number] RECD: 10/13/15 STATUS: RES OTHR DR: Gabbie Shell MD _ SOURCE: WOUND SPDESC:KNEE LEFT ORDERED: Anaerobic Cult/R, MRSA/SA SSTI/R, Culture Stain/R, Fungal - Other /R, Acid Fast Stain/U COMMENTS: Verbal to GEMINI CHAWLA by [id number] at 2020 on 10/13/15. Results read back [...] performed at Main Lab DEPARTMENT OF PATHOLOGY, [address] [place] [address] Vinayak Yanez M.D. Director [facility] # [id number] Patient: PRICE GUARDADO [id number] (Continued) Specimen: [id number] Collected: 10/13/15 Received: 10/13/15 (Continued) Procedure Result Reported Site Acid Fast Stain - Direct Final (continued) 10/14/15 02 Due to limited sensitivity of the smear, results should be used as an adjunct in evaluating the patient's status and cultural examination is highly recommended for diagnosis. * ML - MAIN LAB (PSYCHIATRIC1) . END OF REPORT * ML=Testing performed at Main Lab DEPARTMENT OF PATHOLOGY, [address] [place] [address] Vinayak Yanez M.D. Director [facility] # [id number] 22 SEE RESULT BELOW Name: PRICE GUARDADO : [address]: Jessie Lazar MD Acct: [id number] Unit: [id number] AGE: 60 Location: [facility] 338-01 Re10/13/15 Dis: 10/19/15 SEX: M Status: DIS IN SPEC: [id number] GABO: 10/13/15-[address] [facility] [address]: Jessie Lazar MD REQ: [id number] RECD: 10/13/15 STATUS: RES OTHR DR: Gabbie Shell MD _ SOURCE: WOUND SPDESC:KNEE LEFT ORDERED: Anaerobic Cult/R, MRSA/SA SSTI/R, Culture Stain/R, Fungal - Other /R, Acid Fast Stain/U COMMENTS: Verbal to GEMINI HASKINSZONIA CHAWLA by [id number] at 2020 on 10/13/15. Results read back accurately. CLOSTRIDIUM FINDINGS IN ADDITION TO S. AUREUS: Verbal to DR. SHELL by [id number] at 1411 on 10/15/15. Results read back [...] performed at Main Lab DEPARTMENT OF PATHOLOGY, [address] [place] [address] Vinayak Yanez M.D. Director [facility] # [id number] Patient: PRICE GUARDADO [id number] (Continued) Specimen: [id number] Collected: 10/13/15 Received: 10/13/15 (Continued) Procedure Result [...] These antibiotics are not available in the [facility] Formulary Contact the Microbiology Department for any additional antibiotic reporting. Fungal Cult - Other Sources Preliminary 10/31/15- 1443 ML Fungal Culture No Growth of Mycotic Organisms 2 weeks Acid Fast Stain - Direct Final 10/14/15- 0810 ML CONTINUED ON NEXT PAGE * ML=Testing performed at Main Lab DEPARTMENT OF PATHOLOGY, [address] [place] [address] Vinayak Yanez M.D. Director [facility] # [id number] Patient: PRICE GUARDADO [id number] (Continued) Specimen: [id number] Collected: 10/13/15-1639 Received: 10/13/15-1754 (Continued) Procedure Result Reported Site Acid Fast Stain - Direct Final (continued) 10/14/15809 AFB Smear Result No Acid Fast Bacillus Present (Negative) Preparation By Direct Smear Due to limited sensitivity of the smear, results should be used as an adjunct in evaluating the patient's status and cultural examination is highly recommended for diagnosis. * ML - MAIN LAB (PSYCHIATRIC1) . END OF REPORT * ML=Testing performed at Main Lab DEPARTMENT OF PATHOLOGY, [address] [place] [address] Vinayak Yanez M.D. Director [facility] # [id number] 23 SEE RESULT BELOW Name: PRICE GUARDADO : [address]: Jessie Lazar MD Acct: [id number] Unit: [id number] AGE: 60 Location: [facility] Re10/13/15 SEX: M Status: REG SDC SPEC: [id number] GABO: 10/13/15-[address] [facility] [address]: Jessie Lazar MD REQ: [id number] RECD: 10/13/15 STATUS: RES OTHR DR: Gabbie [...] Direct PENDING * ML - MAIN LAB ([facility]) . END OF REPORT * ML=Testing performed at Main Lab DEPARTMENT OF PATHOLOGY, [address] [place] [address] Vinayak Yanez M.D. Director [facility] # [id number] 24 SEE RESULT BELOW Name: PRICE GUARDADO : [address]: Jessie Lazar MD Acct: [id number] Unit: [id number] AGE: 60 Location: [facility] 338-01 Re10/13/15 Dis: 10/19/15 SEX: M Status: DIS IN SPEC: [id number] GABO: 10/13/15-[address] [facility] [address]: Jessie Lazar MD REQ: [id number] RECD: 10/13/15 STATUS: RES OTHR DR: Gabbie Shell MD _ SOURCE: WOUND SPDESC:KNEE LEFT ORDERED: Tissue Cult/GS/R, Fungal - Other/R, Acid Fast Stain/U COMMENTS: CLOSTRIDIUM FINDINGS IN ADDITION TO S. AUREUS: Verbal to DR. SHELL by [id number] at 1411 on 10/15/15. Results read back [...] performed at Main Lab DEPARTMENT OF PATHOLOGY, [address] [place] [address] Vinayak Yanez M.D. Director [facility] # [id number] Patient: PRICE GUARDADO [id number] (Continued) Specimen: [id number] Collected: 10/13/15 Received: 10/13/15 (Continued) Procedure Result Reported Site Acid Fast Stain - Direct Final (continued) 10/14/15817 Due to limited sensitivity of the smear, results should be used as an adjunct in evaluating the patient's status and cultural examination is highly recommended for diagnosis. * ALICIA - MAIN LAB (PSYCHIATRIC1) . END OF REPORT * ML=Testing performed at Main Lab DEPARTMENT OF PATHOLOGY, [address] [place] [address] Vinayak Yanez M.D. Director [facility] # [id number] 25 SEE RESULT BELOW Name: DEBBYPRICE : [address]: Jessie Lazar MD Acct: [id number] Unit: [id number] AGE: 60 Location: [place] [address] Re10/13/15 SEX: M Status: ADM IN SPEC: [id number] GABO: 10/13/15-[address] [facility] [address]: Jessie Lazar MD REQ: [id number] RECD: 10/13/15 STATUS: RES OTHR DR: Gabbie Shell MD _ SOURCE: WOUND SPDESC:KNEE LEFT ORDERED: Anaerobic Cult/R, MRSA/SA SSTI/R, Culture Stain/R, Fungal - Other /R, Acid Fast Stain/U COMMENTS: Verbal to GEMINI CHAWLA by [id number] at 2020 on 10/13/15. Results read back accurately. Procedure Result Reported Site Anaerobic Culture PENDING MRSA/S. aureus SSTI PCR Final 10/13/15- 2017 ML Organism 1 MRSA NEGATIVE Organism 2 S.AUREUS POSITIVE Wound/Misc Gram Stain Final 10/13/15- 1845 ML [...] performed at Main Lab DEPARTMENT OF PATHOLOGY, [address] [place] [address] Vinayak Yanez M.D. Director [facility] # [id number] Patient: PRICE GUARDADO [id number] (Continued) Specimen: [id number] Collected: 10/13/15-1639 Received: 10/13/15-1753 (Continued) Procedure Result Reported Site Acid Fast Stain - Direct Final (continued) 10/14/15809 Due to limited sensitivity of the smear, results should be used as an adjunct in evaluating the patient's status and cultural examination is highly recommended for diagnosis. * ML - MAIN LAB (PSYCHIATRIC1) . END OF REPORT * ML=Testing performed at Main Lab DEPARTMENT OF PATHOLOGY, [address] [place] [address] Vinayak Yanez M.D. Director [facility] # [id number] 26 SEE RESULT BELOW Name: PRICE GUARDADO : [address]: Jessie Lazar MD Acct: [id number] Unit: [id number] AGE: 60 Location: [facility] 338-01 Re10/13/15 Dis: 10/19/15 SEX: M Status: DIS IN SPEC: [id number] GABO: 10/13/15-[address] [facility] [address]: Jessie Lazar MD REQ: [id number] RECD: 10/13/15 STATUS: RES OTHR DR: Gabbie Shell MD _ SOURCE: WOUND SPDESC:KNEE LEFT ORDERED: Anaerobic Cult/R, MRSA/SA SSTI/R, Culture Stain/R, Fungal - Other /R, Acid Fast Stain/U COMMENTS: Verbal to GEMINI CHAWLA by [id number] at 2020 on 10/13/15. Results read back accurately. CLOSTRIDIUM FINDINGS IN ADDITION TO S. AUREUS: Verbal to DR. SHELL by [id number] at 1411 on 10/15/15. Results read back [...] performed at Main Lab DEPARTMENT OF PATHOLOGY, [address] [place] [address] Vinayak Yanez M.D. Director [facility] # [id number] Patient: PRICE GUARDADO [id number] (Continued) Specimen: [id number] Collected: 10/13/15 Received: 10/13/15 (Continued) Procedure Result [...] These antibiotics are not available in the [facility] Formulary Contact the Microbiology Department for any additional antibiotic reporting. Fungal Cult - Other Sources Preliminary 11/07/15- 1229 ML Fungal Culture No Growth of Mycotic Organisms 3 weeks Acid Fast Stain - Direct Final 10/14/15- 0810 ML CONTINUED ON NEXT PAGE * ML=Testing performed at Main Lab DEPARTMENT OF PATHOLOGY, [address] [place] [address] Vinayak Yanez M.D. Director [facility] # [id number] Patient: PRICE GUARDADO [id number] (Continued) Specimen: [id number] Collected: 10/13/15 Received: 10/13/15 (Continued) Procedure Result Reported Site Acid Fast Stain - Direct Final (continued) 10/14/15809 AFB Smear Result No Acid Fast Bacillus Present (Negative) Preparation By Direct Smear Due to limited sensitivity of the smear, results should be used as an adjunct in evaluating the patient's status and cultural examination is highly recommended for diagnosis. * ML - MAIN LAB (PSYCHIATRIC1) . END OF REPORT * ML=Testing performed at Main Lab DEPARTMENT OF PATHOLOGY, [address] [place] [address] Vinayak Yanez M.D. Director [facility] # [id number] 27 SEE RESULT BELOW Name: PRICE GUARDADO : [address]: Jessie Lazar MD Acct: [id number] Unit: [id number] AGE: 60 Location: [facility] Re10/13/15 SEX: M Status: REG SDC SPEC: [id number] GABO: 10/13/15-[address] [facility] [address]: Jessie Lazar MD REQ: [id number] RECD: 10/13/151754 STATUS: RES OTHR DR: Gabbie Shell MD _ SOURCE: WOUND SPDESC:KNEE LEFT ORDERED: Anaerobic Cult/R, MRSA/SA SSTI/R, Culture Stain/R, Fungal - Other /R, Acid Fast Stain/U Procedure Result Reported Site Anaerobic Culture PENDING MRSA/S. aureus SSTI PCR PENDING Wound/Misc Gram Stain Final 10/13/15- 6 ML 3+ Neutrophils 4+ Gram Positive Cocci 3+ Gram Positive Bacilli 1+ Gram Negative Bacilli Wound/Misc Culture PENDING Fungal Cult - Other Sources PENDING Acid Fast Stain - Direct PENDING * ML - MAIN LAB ([facility]) . END OF REPORT * ML=Testing performed at Main Lab DEPARTMENT OF PATHOLOGY, [address] [place] [address] Vinayak Yanez M.D. Director [facility] # [id number] 28 SEE RESULT BELOW Name: PRICE GUARDADO : [address]: Jessie Lazar MD Acct: [id number] Unit: [id number] AGE: 60 Location: [facility] 338-01 Re10/13/15 Dis: 10/19/15 SEX: M Status: DIS IN SPEC: [id number] GABO: 10/13/15-[address] [facility] [address]: Jessie Lazar MD REQ: [id number] RECD: 10/13/15 STATUS: COMP OTHR DR: Gabbie Shell MD _ SOURCE: WOUND SPDESC:KNEE LEFT ORDERED: Tissue Cult/GS/R, Fungal - Other/R, Acid Fast Stain/U COMMENTS: CLOSTRIDIUM FINDINGS IN ADDITION TO S. AUREUS: Verbal to DR. SHELL by [id number] at 1411 on 10/15/15. Results read back [...] Fungal Cult - Other Sources Final 11/14/15- 142 ML Fungal Culture No Growth of Mycotic Organisms 4 weeks Acid Fast Stain - Direct Final 10/14/15- 817 ML AFB Smear Result No Acid Fast Bacillus Present (Negative) Preparation By Direct Smear CONTINUED ON NEXT PAGE * ML=Testing performed at Main Lab DEPARTMENT OF PATHOLOGY, [address] [place] [address] Vinayak Yanez M.D. Director [facility] # [id number] Patient: PRICE GUARDADO [id number] (Continued) Specimen: [id number] Collected: 10/13/15-1639 Received: 10/13/15-175 (Continued) Procedure Result Reported Site Acid Fast Stain - Direct Final (continued) 10/14/15817 Due to limited sensitivity of the smear, results should be used as an adjunct in evaluating the patient's status and cultural examination is highly recommended for diagnosis. * ML - MAIN LAB (PSYCHIATRIC1) . END OF REPORT * ML=Testing performed at Main Lab DEPARTMENT OF PATHOLOGY, [address] [place] [address] Vinayak Yanez M.D. Director [facility] # [id number] 29 SEE RESULT BELOW Name: RPICE GUARDADO : [address]: Jessie Lazar MD Acct: [id number] Unit: [id number] AGE: 60 Location: [facility] 338- Re10/13/15 SEX: M Status: ADM IN SPEC: [id number] GABO: 10/13/15-[address] [facility] [address]: Jessie Lazar MD REQ: [id number] RECD: 10/13/15 STATUS: RES OTHR DR: Gabbie Shell MD _ SOURCE: WOUND SPDESC:KNEE LEFT ORDERED: Anaerobic Cult/R, MRSA/SA SSTI/R, Culture Stain/R, Fungal - Other /R, Acid Fast Stain/U COMMENTS: Verbal to GEMINI CHAWLA by [id number] at 2020 on 10/13/15. Results read back [...] performed at Main Lab DEPARTMENT OF PATHOLOGY, [address] [place] [address] Vinayak Yanez M.D. Director [facility] # [id number] Patient: PRICE GUARDADO [id number] (Continued) Specimen: [id number] Collected: 10/13/15 Received: 10/13/15175 (Continued) Procedure Result Reported Site Acid Fast Stain - Direct Final (continued) 10/14/15- 08 Due to limited sensitivity of the smear, results should be used as an adjunct in evaluating the patient's status and cultural examination is highly recommended for diagnosis. * ML - MAIN LAB (PSYCHIATRIC1) . END OF REPORT * ML=Testing performed at Main Lab DEPARTMENT OF PATHOLOGY, [address] [place] [address] Vinayak Yanez M.D. Director [facility] # [id number] 30 SEE RESULT BELOW Name: PRICE GUARDADO : [address]: Jessie Lazar MD Acct: [id number] Unit: [id number] AGE: 60 Location: [facility] 338-01 Re10/13/15 Dis: 10/19/15 SEX: M Status: DIS IN SPEC: [id number] GABO: 10/13/15-[address]: Jessie Lazar MD REQ: [id number] RECD: 10/13/15 STATUS: COMP [facility] DR: Gabbie Shell MD _ SOURCE: WOUND SPDESC:KNEE LEFT ORDERED: Anaerobic Cult/R, MRSA/SA SSTI/R, Culture Stain/R, Fungal - Other /R, Acid Fast Stain/U COMMENTS: Verbal to GEMINI CHAWLA by [id number] at 2020 on 10/13/15. Results read back accurately. CLOSTRIDIUM FINDINGS IN ADDITION TO S. AUREUS: Verbal to DR. SHELL by [id number] at 1411 on 10/15/15. Results read back [...] performed at Main Lab DEPARTMENT OF PATHOLOGY, [address] [place] [address] Vinayak Yanez M.D. Director [facility] # [id number] Patient: PRICE GUARDADO [id number] (Continued) Specimen: [id number] Collected: 10/13/15 Received: 10/13/15 (Continued) Procedure Result Reported Site Wound/Misc Culture Final (continued) 01/16/16- 0846 Organism 1 STAPHYLOCOCCUS AUREUS Quantity 3+ 1. [...] These antibiotics are not available in the [facility] Formulary Contact the Microbiology Department for any additional antibiotic reporting. Fungal Cult - Other Sources Final 11/14/15- 1427 ML Fungal Culture No Growth of Mycotic Organisms 4 weeks Acid Fast Stain - Direct Final 10/14/15- 0810 ML CONTINUED ON NEXT PAGE * ML=Testing performed at Main Lab DEPARTMENT OF PATHOLOGY, [address] [place] [address] Vinayak Yanez M.D. Director [facility] # [id number] Patient: PRICE GUARDADO [id number] (Continued) Specimen: [id number] Collected: 10/13/15-1640 Received: 10/13/15 (Continued) Procedure Result Reported Site Acid Fast Stain - Direct Final (continued) 10/14/15809 AFB Smear Result No Acid Fast Bacillus Present (Negative) Preparation By Direct Smear Due to limited sensitivity of the smear, results should be used as an adjunct in evaluating the patient's status and cultural examination is highly recommended for diagnosis. * ML - MAIN LAB (PSYCHIATRIC1) . END OF REPORT * ML=Testing performed at Main Lab DEPARTMENT OF PATHOLOGY, [address] [place] [address] Vinayak Yanez M.D. Director [facility] # [id number] SOURCE: KNEE, KNEE WOUND SWAB MYCOBACTERIAL CULTURE FINAL No growth after 60 days of incubation. Test Performed by: [place] [address] Asset Accountant: Cam Isidro II, M.D., Ph.D. Procedures Date CPT Code Description Status 04/24/2018 49108 Amputation,Toe;Interphalangeal Joint Completed 04/24/2018 02805 Amputation,Toe;Interphalangeal Joint Completed 04/24/2018 99763 Amputation,Toe;Interphalangeal Joint Completed 04/24/2018 13171 Amputation,Toe;Interphalangeal Joint Completed 12/10/2016 17392 ECHO Transthorasic Realtime 2D W Doppler & Color Flow Completed Hosp 12/09/2016 08846 EKG, Interpretation Only Completed 01/10/2016 20871 Treadmill Interp/Report Only Completed 01/10/2016 10609 Stress Test Supervsn W/Out I/R Completed 10/15/2015 97846 Arthroscopy,Knee For Infection,Lavage & Drainage Completed 10/15/2015 26515 Arthroscopy,Knee For Infection,Lavage & Drainage Completed 10/15/2015 84386 Arthroscopy,Knee For Infection,Lavage & Drainage Completed 10/15/2015 81020 Arthroscopy,Knee For Infection,Lavage & Drainage Completed 10/13/2015 91487 Arthroscopy,Knee,Meniscectomy Medial Or Lateral Completed 10/13/2015 84501 Arthroscopy,Knee,Meniscectomy Medial Or Lateral Completed 10/13/2015 21463 Arthroscopy,Knee For Infection,Lavage & Drainage Completed 05/18/2013 40984 EEG Recording Awake & Asleep Completed 03/13/2013 97152 Color Flow Doppler/Interp & Reprt Completed 03/13/2013 30806 Pulse Wave/Continuous-Interp.RPT Completed 03/13/2013 90978 Echocardiography, Transesophageal, Real Time W/Image 2D Completed W/W/O M-M Encounters Type Date Location Provider CPT E/M Dx Office Visit 04/22/2018 [facility] [place] [address] M86.172 1:30p C.M.A. Office Visit 04/19/2018 [facility] [place] [address] Z47.89 9:33a C.M.A. Office Visit 04/19/2018 [facility] [place] [address] L97.513 11:31a Hospitalists E11.52 I73.9 Office Visit 04/18/2018 11:30a [facility] Fausto, 83734 L97.513 Assoc,pc Hospitalists SAIDA E11.52 I73.9 F32.9 G25.0 Office Visit 04/17/2018 11:30a [facility] Joe Ramírez, 30646 L97.513 Hospitalists Gabrielle E11.52 Office Visit 04/16/2018 1:09p [facility] Steffanie Larsen 03644 I73.9 Hospitalists MARJORIE Bradley E11.51 Office Visit 04/15/2018 12:44p [facility] Madalyn García, 10614 E11.52 Infectious Diseases Gabrielle Z86.73 Office Visit 04/15/2018 11:29a [facility], [place] [address] L97.513 Hospitalists E11.9 F32.9 Office Visit 12/10/2016 2:49p [facility] [address] G45.9 Office Visit 12/10/2016 3:56p [facility], Tiffanie Hope, 83666 R07.2 Hospitalists [place] [employer] R55 E11.9 G45.9 Office Visit 12/09/2016 3:55p [facility] [place], [address] R55 Hospitalists Gabrielle R07.2 E11.9 G45.9 Office Visit 12/09/2016 1:48p [facility] Sae Major, 53261 G45.9 M.D. Office Visit 01/10/2016 12:51p [facility], Sadie 01918 R07.9 Hospitalists Xavier harrison NP N17.9 E11.9 I10 Office Visit 01/09/2016 12:50p [facility] Estefanía Lewis, N.PAdrianna 53733 R07.9 Hospitalists E11.9 N17.9 I10 Office Visit 11/30/2015 3:20p [facility] Madalyn Jordan 35986 M00.062 Infectious Diseases Gabrielle García Office Visit 11/16/2015 3:20p [facility] Madalyn Jordan 71137 M00.062 Infectious Diseases Gabrielle García B96.7 Office Visit 11/03/2015 2:00p [facility] Jamar Jordan 58733 M00.062 Infectious Diseases Gabrilele García M00.062 Office Visit 10/19/2015 10:02a [facility] [place] [address] M00.062 Assoc, Hospitalists B96.7 E11.8 Office Visit 10/19/2015 9:02a [facility] Jamar Jordan 38628 M00.062 Infectious Diseases Gabrielle García L02.416 Office Visit 10/18/2015 8:56a [facility] Jamar Jordan 38501 M00.062 Infectious Diseases Gabrielle García R19.7 V99.xxxA B96.7 Office Visit 10/18/2015 10:02a [facility], 61232 M00.062 Hospitalists Gabrielle E11.8 B96.7 Office Visit 10/17/2015 10:[facility], 47540 M00.062 Hospitalists Gabrielle B96.7 E11.8 Office Visit 10/16/2015 10:00a [facility], 08262 M00.062 Hospitalists Gabrielle B96.7 E11.8 Office Visit 10/15/2015 10:00a [facility], 57392 M00.062 Hospitalists Gabrielle B96.7 E11.8 Office Visit 10/14/2015 9:59a [facility], Nasima Colmenares, 60203 M00.062 Hospitalists D.O. E11.8 Office Visit 10/13/2015 9:58a [facility] Tiffanie Hope, 01942 M00.062 Assoc, Hospitalists [employer] [place] [employer] E11.8 Office Visit 10/13/2015 7:00a [facility] [place] [address] M25.562 C.M.A. M25.462 S81.012A B96.89 Office Visit 07/29/2013 8:30a [facility] [place], [address]98 333.1 [facility] Worker M.D. Office Visit 06/19/2013 11:30a [facility] [place], 87997 437.9 [facility] [facility] M.D. Office Visit 05/12/2013 10:45a [facility] [place], 88178 345.40 [facility] M.D. 438.89 331.83 Office Visit 03/13/2013 12:53p [facility] Sanchez [place], 16609 435.9 [facility] M.D. Office Visit 03/13/2013 2:43p [facility] Nasima Colmenares, 43356 784.51 Assoc, Hospitalists D.O. 272.2 435.9 305.1 Office Visit 03/12/2013 12:52p [facility] [place], 85231 435.9 [facility] [facility] M.D. Office Visit 03/12/2013 2:42p [facility] Michelleying SiuDO 49783 784.51 Assoc, Hospitalists 272.2 434.11 305.1 Plan of Care Future Appointment(s):05/20/2018 1:00 pm - [facility] at [facility]05/09/2018 - [facility] MDZ89.412 Acquired absence of left great toeFollow up:Follow Up: 1 week
--- OUTSIDE RECORDS SUMMARY | 2018-05-27 17:07 | XMS REPORT ---
:1955 External Reference #:[id number] Author Organization [employer] Address [address] [place] [address] [place] [address] Phone [phone] Care Team Providers Name Role Phone Gabbie Shell MD Primary Care Physician Unavailable Payers Type Date Identification Numbers Payment Provider Subscriber Commercial Effective: Policy Number: [id number] salome-[facility] Maryam Guardado 2010 PayID: [id number] [address] [place] [address] Medigap Part B Policy Number: [id number] Medicare Price Guardado PayID: [id number] [address] [place] [address] Medigap Part B Expires: 2018 Policy Number: [employer] Maryam Waterman [id number] Debby Group Number: [id number] [address] PayID: [id number] [place] [address] Workers Compensation Onset: 2015 Policy Number: Jorden Price Guardado [id number] Group Number: [id number] [address] PayID: [id number] [place] [address] Problems Date Description Provider Status Onset: 04/24/2018 [...] Form Strength Qnty SIG Indications Ordering Provider Oxycodone HCL 04/24/ Active Tablets 5mg 15tabs 1 tab Jose Juan 2018 every 4-6 Fernando, hours as MD needed [...] Humalog / Active Unknown 0000 Clindamycin HCL 11/01/ Hx Capsules 300mg 90caps 1 tabs by Jamar Jordan 2015 - mouth 3 Macqueen, 01/03/ times a M.D. 2015 day Lamictal 05/13/ Hx Tablets 25mg Paul Macario 2012 - Dori, 05/13/ M.D. 2012 Lamictal 05/13/ Hx Tablets 100mg 90tabs 1 and 12 Paul Macario 2012 - malika and Dori, 10/26/ 10/01 qhs M.D. 2015 for 2 wks then 1 and 2 qam and 1 qhs for 2 wks then 1 and /2 bid Lantus Solostar / Hx Solution 100Unit/ML 5units inject 50 Unknown 0000 - units sc 04/21/ in 2018 morning, inject 7 units sc at hs Bupropion HCL / Hx Tablets ER 300mg 1 by Unknown ER (XL) 0000 - 24HR mouth 04/21/ every day 2018 Lamictal / Hx (?) 1 po Unknown 0000 - daily 2012 Lipitor / Hx Tablets 20mg 90tabs one tab Unknown 0000 - po qhs 2015 Aspirin / Hx 325mg 1 tab po Unknown 0000 - daily 2015 Clindamycin HCL 00/00/ Hx Capsules 300mg 1 capsule Unknown 0000 - by mouth 2016 times a day Cefazolin 0000/ Hx Solution 1gm 2 gm iv Unknown Sodium 0000 - Rec every 8 2015 Percocet 00/00/ Hx Tablets 5-325mg 1 by Unknown 0000 - mouth 04/21/ every 2018 hours as needed pain Bentyl 0000/ Hx Capsules 10mg take 1 Unknown 0000 - tablet by 2015 with every meal Tramadol HCL 00/ Hx Tablets 50mg 1 tablets Unknown 0000 - every 6 01/03/ hours as 2016 needed Levofloxacin 0000/ Hx Tablets 750mg Take 1 Unknown 0000 - Tablet By Mouth 2017 Every Day Clindamycin HCL 00/00/ Hx Capsules 300mg Take 1 Unknown 0000 - Capsule By Mouth 2017 Three Times Daily Metronidazole 00/00/ Hx Tablets 500mg Take 1 Unknown 0000 - Tablet By Mouth 2017 Three Times Daily Vital Signs Date Vital Result Comment 05/02/2018 Height 66 inches 5'6" Weight 192.00 [...] Attend Dr: Jose Juan King MD Acct: [id number] Unit: [id number] AGE: 62 Location: [place] Re04/24/18 SEX: M Status: WINIFRED DIXON SPEC: [id number] GABO: 04/24/18- [facility] DR: Jose Juan King MD REQ: [id number] RECD: 04/24/18-1440 STATUS: SOUT _ ORDERED: Decal, LEVEL 4 [...] margin blue and plantar margin black, and office machines sales representative sections are submitted in cassettes A and B to include bone following decalcification in cassette A. Signed by and Reported on: Abby Ellis MD 04/29/18 1052 END OF REPORT DEPARTMENT OF PATHOLOGY, [address] [place] [address] Vinayak Yanez M.D. Director [facility] # [id number] 2 Fiberglass Laminator: [id number] 3 Fiberglass Laminator: [id number] 4 Fiberglass Laminator: [id number] 5 Fiberglass Laminator: [id number] 6 Because ethnic data is not always [...] (or dialysis) 13 Acute inflammation: >10.00 14 Fiberglass Laminator: [id number] FERNANDO PETTIT 15 SEE RESULT BELOW Name: DEBBYPRICE : [address]: Jessie Lazar MD Acct: [id number] Unit: [id number] AGE: 60 Location: [facility] Re10/13/15 SEX: M Status: REG SDC SPEC: [id number] GABO: 10/13/15-[address] [facility] [address]: Jessie Lazar MD REQ: [id number] RECD: 10/13/151754 STATUS: RES OT DR: Gabbie Shell MD _ SOURCE: WOUND [...] Direct PENDING * ML - MAIN LAB ([facility]) . END OF REPORT * ML=Testing performed at Main Lab DEPARTMENT OF PATHOLOGY, [address] [place] [address] Vinayak Yanez M.D. Director [facility] # [id number] 16 SEE RESULT BELOW Name: PRICE GUARDADO : [address]: Jessie Lazar MD Acct: [id number] Unit: [id number] AGE: 60 Location: [place] [address]- Re10/13/15 Dis: 10/19/15 SEX: M Status: DIS IN SPEC: [id number] GABO: 10/13/15-[address] [facility] [address]: Jessie Lazar MD REQ: [id number] RECD: 10/13/15 STATUS: RES OTHR DR: Gabbie Shell MD _ SOURCE: WOUND SPDESC:KNEE LEFT ORDERED: Tissue Cult/GS/R, Fungal - Other/R, Acid Fast Stain/U COMMENTS: CLOSTRIDIUM FINDINGS IN ADDITION TO S. AUREUS: Verbal to DR. SHELL by [id number] at 1411 on 10/15/15. Results read back [...] performed at Main Lab DEPARTMENT OF PATHOLOGY, [address] [place] [address] Vinayak Yanez M.D. Director [facility] # [id number] Patient: PRICE GUARDADO [id number] (Continued) Specimen: [id number] Collected: 10/13/15 Received: 10/13/15 (Continued) Procedure Result Reported Site Acid Fast Stain - Direct Final (continued) 10/14/15817 Due to limited sensitivity of the smear, results should be used as an adjunct in evaluating the patient's status and cultural examination is highly recommended for diagnosis. * ML - MAIN LAB ([facility]) . END OF REPORT * ML=Testing performed at Main Lab DEPARTMENT OF PATHOLOGY, [address] [place] [address] Vinayak Yanez M.D. Director [facility] # [id number] 17 SEE RESULT BELOW Name: PRICE GUARDADO : [address]: Jessie Lazar MD Acct: [id number] Unit: [id number] AGE: 60 Location: [facility] 338- Re10/13/15 SEX: M Status: ADM IN SPEC: [id number] GABO: 10/13/15-[address] [facility] [address]: Jessie Lazar MD REQ: [id number] RECD: 10/13/15 STATUS: RES OTHR DR: Gabbie Shell MD _ SOURCE: WOUND SPDESC:KNEE LEFT ORDERED: Anaerobic Cult/R, MRSA/SA SSTI/R, Culture Stain/R, Fungal - Other /R, Acid Fast Stain/U COMMENTS: Verbal to GEMINI CHAWLA by [id number] at 2020 on 10/13/15. Results read back [...] performed at Main Lab DEPARTMENT OF PATHOLOGY, [address] [place] [address] Vinayak Yanez M.D. Director [facility] # [id number] Patient: PRICE GUARDADO [id number] (Continued) Specimen: [id number] Collected: 10/13/15-1639 Received: 10/13/15355 (Continued) Procedure Result Reported Site Acid Fast Stain - Direct Final (continued) 10/14/15- 809 Due to limited sensitivity of the smear, results should be used as an adjunct in evaluating the patient's status and cultural examination is highly recommended for diagnosis. * ML - MAIN LAB ([facility]) . END OF REPORT * ML=Testing performed at Main Lab DEPARTMENT OF PATHOLOGY, [address] [place] [address] Vinayak Yanez M.D. Director [facility] # [id number] 18 SEE RESULT BELOW Name: PRICE GUARDADO : [address]: Jessie Lazar MD Acct: [id number] Unit: [id number] AGE: 60 Location: [facility] 338-01 Re10/13/15 Dis: 10/19/15 SEX: M Status: DIS IN SPEC: [id number] GABO: 10/13/15-[address]: Jessie Lazar MD REQ: [id number] RECD: 10/13/15 STATUS: RES OTHR DR: Gabbie Shell MD _ SOURCE: WOUND SPDESC:KNEE LEFT ORDERED: Anaerobic Cult/R, MRSA/SA SSTI/R, Culture Stain/R, Fungal - Other /R, Acid Fast Stain/U COMMENTS: Verbal to GEMINI CHAWLA by [id number] at 2020 on 10/13/15. Results read back accurately. CLOSTRIDIUM FINDINGS IN ADDITION TO S. AUREUS: Verbal to DR. SHELL by [id number] at 1411 on 10/15/15. Results read back [...] performed at Main Lab DEPARTMENT OF PATHOLOGY, [address] [place] [address] Vinayak Yanez M.D. Director [facility] # [id number] Patient: PRICE GUARDADO [id number] (Continued) Specimen: [id number] Collected: 10/13/15 Received: 10/13/15 (Continued) Procedure Result [...] These antibiotics are not available in the [facility] Formulary Contact the Microbiology Department for any additional antibiotic reporting. Fungal Cult - Other Sources Preliminary 10/24/15- 1325 ML Fungal Culture No Growth of Mycotic Organisms 1 week Acid Fast Stain - Direct Final 10/14/15- 0810 ML CONTINUED ON NEXT PAGE * ML=Testing performed at Main Lab DEPARTMENT OF PATHOLOGY, [address] [place] [address] Vinayak Yanez M.D. Director [facility] # [id number] Patient: PRICE GUARDADO [id number] (Continued) Specimen: [id number] Collected: 10/13/15-1640 Received: 10/13/15-1753 (Continued) Procedure Result Reported Site Acid Fast Stain - Direct Final (continued) 10/14/15809 AFB Smear Result No Acid Fast Bacillus Present (Negative) Preparation By Direct Smear Due to limited sensitivity of the smear, results should be used as an adjunct in evaluating the patient's status and cultural examination is highly recommended for diagnosis. * ML - MAIN LAB ([facility]) . END OF REPORT * ML=Testing performed at Main Lab DEPARTMENT OF PATHOLOGY, [address] [place] [address] Vinayak Yanez M.D. Director [facility] # [id number] 19 SEE RESULT BELOW Name: PRICE GUARDADO : [address]: Jessie Lazar MD Acct: [id number] Unit: [id number] AGE: 60 Location: [facility] Re10/13/15 SEX: M Status: REG SDC SPEC: [id number] GABO: 10/13/15-[address] [facility] [address]: Jessie Lazar MD REQ: [id number] RECD: 10/13/15 STATUS: RES OTHR DR: Gabbie [...] performed at Main Lab DEPARTMENT OF PATHOLOGY, [address] [place] [address] Vinayak Yanez M.D. Director [facility] # [id number] 20 SEE RESULT BELOW Name: PRICE GUARDADO : [address]: Jessie Lazar MD Acct: [id number] Unit: [id number] AGE: 60 Location: [facility] 338-01 Re10/13/15 Dis: 10/19/15 SEX: M Status: DIS IN SPEC: [id number] GABO: 10/13/[address]: Jessie Lazar MD REQ: [id number] RECD: 10/13/15725 STATUS: RES OTHR DR: Gabbie Shell MD _ SOURCE: WOUND SPDESC:KNEE LEFT ORDERED: Tissue Cult/GS/R, Fungal - Other/R, Acid Fast Stain/U COMMENTS: CLOSTRIDIUM FINDINGS IN ADDITION TO S. AUREUS: Verbal to DR. SHELL by [id number] at 1411 on 10/15/15. Results read back [...] performed at Main Lab DEPARTMENT OF PATHOLOGY, [address] [place] [address] Vinayak Yanez M.D. Director [facility] # [id number] Patient: PRICE GUARDADO [id number] (Continued) Specimen: [id number] Collected: 10/13/15 Received: 10/13/15 (Continued) Procedure Result Reported Site Acid Fast Stain - Direct Final (continued) 10/14/15817 Due to limited sensitivity of the smear, results should be used as an adjunct in evaluating the patient's status and cultural examination is highly recommended for diagnosis. * ML - MAIN LAB ([facility]) . END OF REPORT * ML=Testing performed at Main Lab DEPARTMENT OF PATHOLOGY, [address] [place] [address] Vinayak Yanez M.D. Director [facility] # [id number] 21 SEE RESULT BELOW Name: PRICE GUARDADO : [address]: Jessie Lazar MD Acct: [id number] Unit: [id number] AGE: 60 Location: [place] [address] Re10/13/15 SEX: M Status: ADM IN SPEC: [id number] GABO: 10/13/15-[address] [facility] [address]: Jessie Lazar MD REQ: [id number] RECD: 10/13/154264 STATUS: RES OTHR DR: Gabbie Shell MD _ SOURCE: WOUND SPDESC:KNEE LEFT ORDERED: Anaerobic Cult/R, MRSA/SA SSTI/R, Culture Stain/R, Fungal - Other /R, Acid Fast Stain/U COMMENTS: Verbal to GEMINI REYES PHARM by [id number] at 2020 on 10/13/15. Results read back [...] performed at Main Lab DEPARTMENT OF PATHOLOGY, [address] [place] [address] Vinayak Yanez M.D. Director [facility] # [id number] Patient: PRICE GUARDADO [id number] (Continued) Specimen: [id number] Collected: 10/13/15 Received: 10/13/15 (Continued) Procedure Result Reported Site Acid Fast Stain - Direct Final (continued) 10/14/15809 Due to limited sensitivity of the smear, results should be used as an adjunct in evaluating the patient's status and cultural examination is highly recommended for diagnosis. * ML - MAIN LAB ([facility]) . END OF REPORT * ML=Testing performed at Main Lab DEPARTMENT OF PATHOLOGY, [address] [place] [address] Vinayak Yanez M.D. Director [facility] # [id number] 22 SEE RESULT BELOW Name: DEBBYPRICE : [address]: Jessie Lazar MD Acct: [id number] Unit: [id number] AGE: 60 Location: [place] [address]- Re10/13/15 Dis: 10/19/15 SEX: M Status: DIS IN SPEC: [id number] GABO: 10/13/15-[address] [facility] [address]: Jessie Lazar MD REQ: [id number] RECD: 10/13/15 STATUS: RES OTHR DR: Gabbie Shell MD _ SOURCE: WOUND SPDESC:KNEE LEFT ORDERED: Anaerobic Cult/R, MRSA/SA SSTI/R, Culture Stain/R, Fungal - Other /R, Acid Fast Stain/U COMMENTS: Verbal to GEMINI REYES PHARM by [id number] at 2020 on 10/13/15. Results read back accurately. CLOSTRIDIUM FINDINGS IN ADDITION TO S. AUREUS: Verbal to DR. SHELL by [id number] at 1411 on 10/15/15. Results read back [...] performed at Main Lab DEPARTMENT OF PATHOLOGY, [address] [place] [address] Vinayka Yanez M.D. Director [facility] # [id number] Patient: PRICE GUARDADO [id number] (Continued) Specimen: [id number] Collected: 10/13/15 Received: 10/13/15 (Continued) Procedure Result [...] These antibiotics are not available in the [facility] Formulary Contact the Microbiology Department for any additional antibiotic reporting. Fungal Cult - Other Sources Preliminary 10/31/15- 1443 ML Fungal Culture No Growth of Mycotic Organisms 2 weeks Acid Fast Stain - Direct Final 10/14/15- 0810 ML CONTINUED ON NEXT PAGE * ML=Testing performed at Main Lab DEPARTMENT OF PATHOLOGY, [address] [place] [address] Vinayak Yanez M.D. Director [facility] # [id number] Patient: PRICE GUARDADO [id number] (Continued) Specimen: [id number] Collected: 10/13/15 Received: 10/13/15 (Continued) Procedure Result Reported Site Acid Fast Stain - Direct Final (continued) 10/14/15809 AFB Smear Result No Acid Fast Bacillus Present (Negative) Preparation By Direct Smear Due to limited sensitivity of the smear, results should be used as an adjunct in evaluating the patient's status and cultural examination is highly recommended for diagnosis. * ML - MAIN LAB ([facility]) . END OF REPORT * ML=Testing performed at Main Lab DEPARTMENT OF PATHOLOGY, [address] [place] [address] Vinayak Yanez M.D. Director [facility] # [id number] 23 SEE RESULT BELOW Name: DEBBYPRICE : [address]: Jessie Lazar MD Acct: [id number] Unit: [id number] AGE: 60 Location: [facility] Re10/13/15 SEX: M Status: [facility] SPEC: [id number] GABO: 10/13/15-[address] [facility] [address]: Jessie Lazar MD REQ: [id number] RECD: 10/13/15 STATUS: RES OTHR DR: Gabbie [...] Direct PENDING * ML - MAIN LAB ([facility]) . END OF REPORT * ML=Testing performed at Main Lab DEPARTMENT OF PATHOLOGY, [address] [place] [address] Vinayak Yanez M.D. Director [facility] # [id number] 24 SEE RESULT BELOW Name: PRICE GUARDADO Arcenio : [address]: Jessie Lazar MD Acct: [id number] Unit: [id number] AGE: 60 Location: [facility] 338- Re10/13/15 Dis: 10/19/15 SEX: M Status: DIS IN SPEC: [id number] GABO: 10/13/15-[address] [facility] [address]: Jessie Lazar MD REQ: [id number] RECD: 10/13/15 STATUS: RES OTHR DR: Gabbie Shell MD _ SOURCE: WOUND SPDESC:KNEE LEFT ORDERED: Tissue Cult/GS/R, Fungal - Other/R, Acid Fast Stain/U COMMENTS: CLOSTRIDIUM FINDINGS IN ADDITION TO S. AUREUS: Verbal to DR. SHELL by [id number] at 1411 on 10/15/15. Results read back [...] performed at Main Lab DEPARTMENT OF PATHOLOGY, [address] [place] [address] Vinayak Yanez M.D. Director [facility] # [id number] Patient: PRICE GUARDADO [id number] (Continued) Specimen: [id number] Collected: 10/13/15 Received: 10/13/15829 (Continued) Procedure Result Reported Site Acid Fast Stain - Direct Final (continued) 10/14/15817 Due to limited sensitivity of the smear, results should be used as an adjunct in evaluating the patient's status and cultural examination is highly recommended for diagnosis. * ML - MAIN LAB ([facility]) . END OF REPORT * ML=Testing performed at Main Lab DEPARTMENT OF PATHOLOGY, [address] [place] [address] Vinayak Yanez M.D. Director [facility] # [id number] 25 SEE RESULT BELOW Name: PRICE GUARDADO : [address]: Jessie Lazar MD Acct: [id number] Unit: [id number] AGE: 60 Location: [place] [address] Re10/13/15 SEX: M Status: ADM IN SPEC: [id number] GABO: 10/13/15-[address] [facility] [address]: Jessie Lazar MD REQ: [id number] RECD: 10/13/15 STATUS: RES OTHR DR: Gabbie Shell MD _ SOURCE: WOUND SPDESC:KNEE LEFT ORDERED: Anaerobic Cult/R, MRSA/SA SSTI/R, Culture Stain/R, Fungal - Other /R, Acid Fast Stain/U COMMENTS: Verbal to GEMINI CHAWLA by [id number] at 2020 on 10/13/15. Results read back [...] performed at Main Lab DEPARTMENT OF PATHOLOGY, [address] [place] [address] Vinayak Yanez M.D. Director [facility] # [id number] Patient: PRICE GUARDADO [id number] (Continued) Specimen: [id number] Collected: 10/13/15-1639 Received: 10/13/15-1753 (Continued) Procedure Result Reported Site Acid Fast Stain - Direct Final (continued) 10/14/15- 809 Due to limited sensitivity of the smear, results should be used as an adjunct in evaluating the patient's status and cultural examination is highly recommended for diagnosis. * ML - MAIN LAB ([facility]) . END OF REPORT * ML=Testing performed at Main Lab DEPARTMENT OF PATHOLOGY, [address] [place] [address] Vinayak Yanez M.D. Director [facility] # [id number] 26 SEE RESULT BELOW Name: PRICE GUARDADO : [address]: Jessie Lazar MD Acct: [id number] Unit: [id number] AGE: 60 Location: [facility] 338-01 Re10/13/15 Dis: 10/19/15 SEX: M Status: DIS IN SPEC: [id number] GABO: 10/13/15-[address] [facility] [address]: Jsesie Lazar MD REQ: [id number] RECD: 10/13/15 STATUS: RES OTHR DR: Gabbie Shell MD _ SOURCE: WOUND SPDESC:KNEE LEFT ORDERED: Anaerobic Cult/R, MRSA/SA SSTI/R, Culture Stain/R, Fungal - Other /R, Acid Fast Stain/U COMMENTS: Verbal to GEMINI CHAWLA by [id number] at 2020 on 10/13/15. Results read back accurately. CLOSTRIDIUM FINDINGS IN ADDITION TO S. AUREUS: Verbal to DR. SHELL by [id number] at 1411 on 10/15/15. Results read back [...] performed at Main Lab DEPARTMENT OF PATHOLOGY, [address] [place] [address] Vinayak Yanez M.D. Director [facility] # [id number] Patient: PRICE GUARDADO [id number] (Continued) Specimen: [id number] Collected: 10/13/15 Received: 10/13/15-175 (Continued) Procedure Result Reported Site Wound/Misc Culture [...] These antibiotics are not available in the [facility] Formulary Contact the Microbiology Department for any additional antibiotic reporting. Fungal Cult - Other Sources Preliminary 11/07/15- 1229 ML Fungal Culture No Growth of Mycotic Organisms 3 weeks Acid Fast Stain - Direct Final 10/14/15- 0810 ML CONTINUED ON NEXT PAGE * ML=Testing performed at Main Lab DEPARTMENT OF PATHOLOGY, [address] [place] [address] Vinayak Yanez M.D. Director [facility] # [id number] Patient: PRICE GUARDADO [id number] (Continued) Specimen: [id number] Collected: 10/13/15 Received: 10/13/15 (Continued) Procedure Result Reported Site Acid Fast Stain - Direct Final (continued) 10/14/15809 AFB Smear Result No Acid Fast Bacillus Present (Negative) Preparation By Direct Smear Due to limited sensitivity of the smear, results should be used as an adjunct in evaluating the patient's status and cultural examination is highly recommended for diagnosis. * ML - MAIN LAB ([facility]) . END OF REPORT * ML=Testing performed at Main Lab DEPARTMENT OF PATHOLOGY, [address] [place] [address] Vinayak Yanez M.D. Director [facility] # [id number] 27 SEE RESULT BELOW Name: PRICE GUARDADO Arcenio : [address]: Jessie Lazar MD Acct: [id number] Unit: [id number] AGE: 60 Location: [facility] Re10/13/15 SEX: M Status: REG SDC SPEC: [id number] GABO: 10/13/15-[address] [facility] [address]: Jessie Lazar MD REQ: [id number] RECD: 10/13/15 STATUS: RES OTHR DR: Gabbie [...] Direct PENDING * ML - MAIN LAB ([facility]) . END OF REPORT * ML=Testing performed at Main Lab DEPARTMENT OF PATHOLOGY, [address] [place] [address] Vinayak Yanez M.D. Director [facility] # [id number] 28 SEE RESULT BELOW Name: PRICE GUARDADO : [address]: Jessie Lazar MD Acct: [id number] Unit: [id number] AGE: 60 Location: [facility] 338-01 Re10/13/15 Dis: 10/19/15 SEX: M Status: DIS IN SPEC: [id number] GABO: 10/13/15-[address]: Jessie Lazar MD REQ: [id number] RECD: 10/13/15 STATUS: DOLORES ACRLOS DR: Gabbie Shell MD _ SOURCE: WOUND SPDESC:KNEE LEFT ORDERED: Tissue Cult/GS/R, Fungal - Other/R, Acid Fast Stain/U COMMENTS: CLOSTRIDIUM FINDINGS IN ADDITION TO S. AUREUS: Verbal to DR. SHELL by [id number] at 1411 on 10/15/15. Results read back [...] performed at Main Lab DEPARTMENT OF PATHOLOGY, [address] [place] [address] Vinayak Yanez M.D. Director [facility] # [id number] Patient: PRICE GUARDADO [id number] (Continued) Specimen: [id number] Collected: 10/13/15 Received: 10/13/15 (Continued) Procedure Result Reported Site Acid Fast Stain - Direct Final (continued) 10/14/15817 Due to limited sensitivity of the smear, results should be used as an adjunct in evaluating the patient's status and cultural examination is highly recommended for diagnosis. * ML - MAIN LAB ([facility]) . END OF REPORT * ML=Testing performed at Main Lab DEPARTMENT OF PATHOLOGY, [address] [place] [address] Vinayak Yanez M.D. Director [facility] # [id number] 29 SEE RESULT BELOW Name: PRICE GUARDADO : [address]: Jessie Lazar MD Acct: [id number] Unit: [id number] AGE: 60 Location: [facility] 338-01 Re10/13/15 SEX: M Status: ADM IN SPEC: [id number] GABO: 10/13/15-[address] [facility] [address]: Jessie Lazar MD REQ: [id number] RECD: 10/13/15 STATUS: RES OTHR DR: Gabbie Rudyard MD _ SOURCE: WOUND SPDESC:KNEE LEFT ORDERED: Anaerobic Cult/R, MRSA/SA SSTI/R, Culture Stain/R, Fungal - Other /R, Acid Fast Stain/U COMMENTS: Verbal to GEMINI CHAWLA by [id number] at 2020 on 10/13/15. Results read back [...] performed at Main Lab DEPARTMENT OF PATHOLOGY, [address] [place] [address] Vinayak Yanez M.D. Director [facility] # [id number] Patient: PRICE GUARDADO [id number] (Continued) Specimen: [id number] Collected: 10/13/15 Received: 10/13/15 (Continued) Procedure Result Reported Site Acid Fast Stain - Direct Final (continued) 10/14/15809 Due to limited sensitivity of the smear, results should be used as an adjunct in evaluating the patient's status and cultural examination is highly recommended for diagnosis. * ML - MAIN LAB ([facility]) . END OF REPORT * ML=Testing performed at Main Lab DEPARTMENT OF PATHOLOGY, [address] [place] [address] Vinayak Yanez M.D. Director [facility] # [id number] 30 SEE RESULT BELOW Name: PRICE GUARDADO Arcenio : [address]: Jessie Lazar MD Acct: [id number] Unit: [id number] AGE: 60 Location: [place] [address] Re10/13/15 Dis: 10/19/15 SEX: M Status: DIS IN SPEC: [id number] GABO: 10/13/15-[address] [facility] [address]: Jessie Lazar MD REQ: [id number] RECD: 10/13/15773 STATUS: COMP OTHR DR: Gabbie Shell MD _ SOURCE: WOUND SPDESC:KNEE LEFT ORDERED: Anaerobic Cult/R, MRSA/SA SSTI/R, Culture Stain/R, Fungal - Other /R, Acid Fast Stain/U COMMENTS: Verbal to GEMINI CHAWLA by [id number] at 2020 on 10/13/15. Results read back accurately. CLOSTRIDIUM FINDINGS IN ADDITION TO S. AUREUS: Verbal to DR. SHELL by [id number] at 1411 on 10/15/15. Results read back [...] performed at Main Lab DEPARTMENT OF PATHOLOGY, [address] [place] [address] Vinayak Yanez M.D. Director [facility] # [id number] Patient: PRICE GUARDADO [id number] (Continued) Specimen: [id number] Collected: 10/13/15-1639 Received: 10/13/15 (Continued) Procedure Result [...] These antibiotics are not available in the [facility] Formulary Contact the Microbiology Department for any additional antibiotic reporting. Fungal Cult - Other Sources Final 11/14/15- 1427 ML Fungal Culture No Growth of Mycotic Organisms 4 weeks Acid Fast Stain - Direct Final 10/14/15- 0810 ML CONTINUED ON NEXT PAGE * ML=Testing performed at Main Lab DEPARTMENT OF PATHOLOGY, [address] [place] [address] Vinayak Yanez M.D. Director [facility] # [id number] Patient: PRICE GUARDADO [id number] (Continued) Specimen: [id number] Collected: 10/13/15-1639 Received: 10/13/15-175 (Continued) Procedure Result Reported Site Acid Fast Stain - Direct Final (continued) 10/14/15- 08 AFB Smear Result No Acid Fast Bacillus Present (Negative) Preparation By Direct Smear Due to limited sensitivity of the smear, results should be used as an adjunct in evaluating the patient's status and cultural examination is highly recommended for diagnosis. * ML - MAIN LAB ([facility]) . END OF REPORT * ML=Testing performed at Main Lab DEPARTMENT OF PATHOLOGY, [address] [place] [address] Vinayak Yanez M.D. Director [facility] # [id number] SOURCE: KNEE, KNEE WOUND SWAB MYCOBACTERIAL CULTURE FINAL No growth after 60 days of incubation. Test Performed by: [address] [address] [employer]: Cam Isidro II, M.D., Ph.D. Procedures Date CPT Code Description Status 04/24/2018 04782 Amputation,Toe;Interphalangeal Joint Completed 04/24/2018 37251 Amputation,Toe;Interphalangeal Joint Completed 04/24/2018 42724 Amputation,Toe;Interphalangeal Joint Completed 04/24/2018 34619 Amputation,Toe;Interphalangeal Joint Completed 12/10/2016 52771 ECHO Transthorasic Realtime 2D W Doppler & Color Flow Completed Hosp 12/09/2016 85970 EKG, Interpretation Only Completed 01/10/2016 30276 Treadmill Interp/Report Only Completed 01/10/2016 66822 Stress Test Supervsn W/Out I/R Completed 10/15/2015 62300 Arthroscopy,Knee For Infection,Lavage & Drainage Completed 10/15/2015 34793 Arthroscopy,Knee For Infection,Lavage & Drainage Completed 10/15/2015 02696 Arthroscopy,Knee For Infection,Lavage & Drainage Completed 10/15/2015 91080 Arthroscopy,Knee For Infection,Lavage & Drainage Completed 10/13/2015 32794 Arthroscopy,Knee,Meniscectomy Medial Or Lateral Completed 10/13/2015 90170 Arthroscopy,Knee,Meniscectomy Medial Or Lateral Completed 10/13/2015 51620 Arthroscopy,Knee For Infection,Lavage & Drainage Completed 05/18/2013 84814 EEG Recording Awake & Asleep Completed 03/13/2013 87536 Color Flow Doppler/Interp & Reprt Completed 03/13/2013 93068 Pulse Wave/Continuous-Interp.RPT Completed 03/13/2013 03888 Echocardiography, Transesophageal, Real Time W/Image 2D Completed W/W/O M-M Encounters Type Date Location Provider CPT E/M Dx Office Visit 04/22/2018 [facility] [place] [address] M86.172 1:30p C.M.A. Office Visit 04/19/2018 [facility] [place] [address] Z47.89 9:33a C.M.A. Office Visit [facility]/19[facility]2018 [facility] [place] [address] L97.513 11:31a Hospitalists E11.52 I73.9 Office Visit 04/18/2018 11:30a [facility] Aldo Lamebrt, 58292 L97.513 Assoc,pc Hospitalists [place] E11.52 I73.9 F32.9 G25.0 Office Visit 04/17/2018 11:30a [facility],pc Joe Ramírez, 74856 L97.513 Hospitalists Gabrielle E11.52 Office Visit 04/16/2018 1:09p [facility],pc Steffanie Larsen 18224 I73.9 Hospitalists MARJORIE Bradley E11.51 Office Visit 04/15/2018 12:44p [facility] Madalyn García, 07241 E11.52 Infectious Diseases Gabrielle Z86.73 Office Visit 04/15/2018 11:29a [facility], [place] [address] L97.513 Hospitalists E11.9 F32.9 Office Visit 12/10/2016 2:49p [facility] [address] G45.9 Office Visit 12/10/2016 3:56p [facility], Tiffanie Hope, 48407 R07.2 Hospitalists [employer] R55 E11.9 G45.9 Office Visit 12/09/2016 3:55p [facility], [place], [address] R55 Hospitalists M.DAdrianna R07.2 E11.9 G45.9 Office Visit 12/09/2016 1:48p [facility] Sae Major, 09086 G45.9 M.D. Office Visit 01/10/2016 12:51p [facility], Sadie 93164 R07.9 Hospitalists Xavier harrison NP N17.9 E11.9 I10 Office Visit 01/09/2016 12:50p [facility], Ezekiel Curtis.Lionel 83955 R07.9 Hospitalists E11.9 N17.9 I10 Office Visit 11/30/2015 3:20p [facility] Madalyn Jordan 24943 M00.062 Infectious Noé García M.D. Office Visit 11/16/2015 3:20p [facility] Madalyn Jordan 13057 M00.062 Infectious Noé García M.D. B96.7 Office Visit 11/03/2015 2:00p [facility] Madalyn Jordan 80009 M00.062 Infectious Noé García M.D. M00.062 Office Visit 10/19/2015 10:02a [facility] [place] [address] M00.062 Assoc, Hospitalists B96.7 E11.8 Office Visit 10/19/2015 9:02a [facility] Madalyn Jordan 36925 M00.062 Infectious Noé García M.D. L02.416 Office Visit 10/18/2015 8:56a [facility] Madalyn Jordan 87462 M00.062 Infectious Noé García M.D. R19.7 V99.xxxA B96.7 Office Visit 10/18/2015 10:02a [facility], Sanchez Rudyard, 50274 M00.062 Hospitalists M.Julian E11.8 B96.7 Office Visit 10/17/2015 10:01a [facility], Sanchez Rudyard, 00458 M00.062 Hospitalists Gabrielle B96.7 E11.8 Office Visit 10/16/2015 10:00a [facility], Sanchez Rudyard, 48488 M00.062 Hospitalists MFreda B96.7 E11.8 Office Visit 10/15/2015 10:00a [facility], Sanchez Rudyard, 51686 M00.062 Hospitalists MFreda B96.7 E11.8 Office Visit 10/14/2015 9:59a [facility], Nasima Darrian, 55903 M00.062 Hospitalists D.O. E11.8 Office Visit 10/13/2015 9:58a [facility] Tiffanie Hope, 24234 M00.062 Assoc, Hospitalists [employer] E11.8 Office Visit 10/13/2015 7:00a [facility] [place] [address] M25.562 C.M.A. M25.462 S81.012A B96.89 Office Visit 07/29/2013 8:30a [facility] Paul [place], 19198 333.1 Services Of [employer] M.D. Office Visit 06/19/2013 11:30a [facility] [place], 40695 437.9 Services Of [employer] M.D. Office Visit 05/12/2013 10:45a [facility] [place] 65286 345.40 Services [facility] [employer] M.D. 438.89 331.83 Office Visit 03/13/2013 12:53p [facility] Sanchez Warren, 82058 435.9 Services Of [employer] M.D. Office Visit 03/13/2013 2:43p [facility] Nasima Colmenares, 049[address] 784.51 Assoc, Hospitalists D.O. 272.2 435.9 305.1 Office Visit 03/12/2013 12:52p [facility] Sanchez [place], 37906 435.9 Services [facility] [employer] M.D. Office Visit 03/12/2013 2:42p [facility] [place] [address] 784.51 Assoc, Hospitalists 272.2 434.11 305.1 Plan of Care Future Appointment(s):05/09/2018 1:15 pm - Jose Juan King MD at [facility].05/08/2018 1:40 pm - Jamar García M.D. at [facility]
--- OUTSIDE RECORDS SUMMARY | 2018-05-27 17:07 | XMS REPORT ---
:1955 External Reference #:[id number] Author Organization [facility] Address [address] [place] [address] [place] [address] Phone [phone] Care Team Providers Name Role Phone Gabbie Shell MD Primary Care Physician Unavailable Payers Type Date Identification Numbers Payment Provider Subscriber Medicare Primary Policy Number: [id number] Medicare Price Guardado PayID: [id number] [address] [place] [address] Commercial Effective: 2010 Policy Number: Aetna-CPHL Maryam Guardado [id number] PayID: [id number] [address] [place] [address] Medigap Part B Expires: 2018 Policy Number: Aetna Insurance Maryam Waterman [id number] Debby Group Number: [id number] [address] PayID: [id number] [place] [address] Workers Compensation Onset: 2015 Policy Number: Jorden Price Guardado [id number] Group Number: [id number] [address] PayID: [id number] [place] [address] Problems Date Description Provider Status Onset: 04/24/2018 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 Onset: 04/22/2018 Acute osteomyelitis of ankle Jose Juan King MD Active and/or foot Onset: 04/16/2018 Type 2 diabetes w diabetic Steffanie Bradley NP Active 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 Onset: 04/16/2018 Peripheral vascular disease Steffanie Bradley, MARJORIE Active Social History Type Date Description Comments Smoking Patient is a current smoker, smokes every day 1 ppd x 45 yrs Allergies, Adverse Reactions, Alerts Date Description Reaction Status Severity Comments 05/12/2013 NKDA active Medications Medication Date Status Form Strength Qnty SIG Indications Ordering Provider Keflex 05/05/ Active Capsules 250mg 30caps Take 1 [facility] 2017 capsule chanell King MD Oxycodone HCL 04/24/ Active Tablets 5mg 15tabs 1 tab [facility] 2018 every 4-6 jose King as MD [...] 05/02/ Hx Capsules 300mg 30caps Take 1 [facility] 2017 - Capsule Fernando, 05/07/ By Mouth [...] 2015 for 2 wks then 1 and 1/2 [...] Unknown Sodium 0000 - Rec every 8 0217/ hours 2016 Percocet 00/00/ Hx Tablets 5-325mg 1 by Unknown 0000 - mouth 04/21/ every 2018 hours as needed pain Bentyl 0000/ Hx Capsules 10mg take 1 Unknown 0000 - tablet by 2015 with every meal Tramadol HCL 00/ Hx Tablets 50mg 1 tablets Unknown 0000 - every 6 04/06/ hours as 2016 needed Levofloxacin 00/00/ Hx Tablets 750mg Take 1 Unknown 0000 - Tablet By Mouth 2018 Every Day Clindamycin HCL 00/00/ Hx Capsules 300mg Take 1 Unknown 0000 - Capsule 04/21/ By Mouth 2018 Three Times Daily Metronidazole 00/00/ Hx Tablets 500mg Take 1 Unknown 0000 - Tablet By 04/21/ Mouth 2017 Three Times Daily Vital Signs Date Vital Result Comment 05/08/2018 Height 66 inches 5'6" Weight 184.00 [...] Attend Dr: Jose Juan King MD Acct: [id number] Unit: [id number] AGE: 62 Location: [place] Re04/24/18 SEX: M Status: WINIFRED SMITH SPEC: [id number] GABO: 04/24/18- [facility] DR: Jose Juan King MD REQ: [id number] RECD: 04/24/181440 STATUS: SOUT _ ORDERED: Decal, [...] margin blue and plantar margin black, and billing representative sections are submitted in cassettes A and B to include bone following decalcification in cassette A. Signed by and Reported on: Abby Ellis MD 04/29/18 1052 END OF REPORT DEPARTMENT OF PATHOLOGY, [address] [place] [address] Vinayak Yanez M.D. Director [facility] # [id number] 2 Portable Track Crew Chief: [id number] 3 Portable Track Crew Chief: [id number] 4 Portable Track Crew Chief: [id number] 5 Portable Track Crew Chief: [id number] 6 Because ethnic data is not always [...] (or dialysis) 13 Acute inflammation: >10.00 14 Portable Track Crew Chief: [id number] FERNANDO PETTIT 15 SEE RESULT BELOW Name: PRICE GUARDADO : [address]: Jessie Lazar MD Acct: [id number] Unit: [id number] AGE: 60 Location: [facility] Re10/13/15 SEX: M Status: REG [facility] SPEC: [id number] GABO: 10/13/15-1640 [facility] DR: Jessie Lazar MD REQ: [id number] RECD: 10/13/15 STATUS: RES OTHR DR: Gabbie [...] Direct PENDING * ML - MAIN LAB ([facility]) . END OF REPORT * ML=Testing performed at Main Lab DEPARTMENT OF PATHOLOGY, [address] [place] [address] Vinayak Yanez M.D. Director [facility] # [id number] 16 SEE RESULT BELOW Name: PRICE GUARADDO : [address]: Jessie Lazar MD Acct: [id number] Unit: [id number] AGE: 60 Location: [place] [address] Re10/13/15 Dis: 10/19/15 SEX: M Status: DIS IN SPEC: [id number] GABO: 10/13/15-1640 [facility] DR: Jessie Lazar MD REQ: [id number] RECD: 10/13/15 STATUS: RES OTHR DR: Gabbie Shell MD _ SOURCE: WOUND SPDESC:KNEE LEFT ORDERED: Tissue Cult/GS/R, Fungal - Other/R, Acid Fast Stain/U COMMENTS: CLOSTRIDIUM FINDINGS IN ADDITION TO S. AUREUS: Verbal to DR. SHELL by [id number] at 1411 on 10/15/15. Results read back [...] performed at Main Lab DEPARTMENT OF PATHOLOGY, [address] [place] [address] Vinayak Yanez M.D. Director [facility] # [id number] Patient: PRICE GUARDADO [id number] (Continued) Specimen: [id number] Collected: 10/13/15-1639 Received: 10/13/15 (Continued) Procedure Result Reported Site Acid Fast Stain - Direct Final (continued) 10/14/15- 817 Due to limited sensitivity of the smear, results should be used as an adjunct in evaluating the patient's status and cultural examination is highly recommended for diagnosis. * ML - MAIN LAB ([facility]) . END OF REPORT * ML=Testing performed at Main Lab DEPARTMENT OF PATHOLOGY, [address] [place] [address] Vinayak Yanez M.D. Director [facility] # [id number] 17 SEE RESULT BELOW Name: PRICE GUARDADO : [address]: Jessie Lazar MD Acct: [id number] Unit: [id number] AGE: 60 Location: [facility] Re10/13/15 SEX: M Status: ADM IN SPEC: [id number] GABO: 10/13/15-1640 [facility] DR: Jessie Lazar MD REQ: [id number] RECD: 10/13/15 STATUS: RES OTHR DR: Gabbie Shell MD _ SOURCE: WOUND SPDESC:KNEE LEFT ORDERED: Anaerobic Cult/R, MRSA/SA SSTI/R, Culture Stain/R, Fungal - Other /R, Acid Fast Stain/U COMMENTS: Verbal to GEMINI CHAWLA by [id number] at 2020 on 10/13/15. Results read back [...] performed at Main Lab DEPARTMENT OF PATHOLOGY, [address] [place] [address] Vinayak Yanez M.D. Director [facility] # [id number] Patient: PRICE GUARDADO [id number] (Continued) Specimen: [id number] Collected: 10/13/15 Received: 10/13/15 (Continued) Procedure Result Reported Site Acid Fast Stain - Direct Final (continued) 10/14/15809 Due to limited sensitivity of the smear, results should be used as an adjunct in evaluating the patient's status and cultural examination is highly recommended for diagnosis. * ML - MAIN LAB ([facility]) . END OF REPORT * ML=Testing performed at Main Lab DEPARTMENT OF PATHOLOGY, [address] [place] [address] Vinayak Yanez M.D. Director [facility] # [id number] 18 SEE RESULT BELOW Name: PRICE GUARDADO : [address]: Jessie Lazar MD Acct: [id number] Unit: [id number] AGE: 60 Location: [facility] 338-01 Re10/13/15 Dis: 10/19/15 SEX: M Status: DIS IN SPEC: [id number] GABO: 10/13/15-1640 [facility] DR: Jessie Lazar MD REQ: [id number] RECD: 10/13/15 STATUS: RES OTHR DR: Gabbie Shell MD _ SOURCE: WOUND SPDESC:KNEE LEFT ORDERED: Anaerobic Cult/R, MRSA/SA SSTI/R, Culture Stain/R, Fungal - Other /R, Acid Fast Stain/U COMMENTS: Verbal to GEMINI CHAWLA by [id number] at 2020 on 10/13/15. Results read back accurately. CLOSTRIDIUM FINDINGS IN ADDITION TO S. AUREUS: Verbal to DR. SHELL by [id number] at 1411 on 10/15/15. Results read back [...] ON NEXT PAGE * ML=Testing performed at [facility] Lab DEPARTMENT OF PATHOLOGY, [address] [place] [address] Vinayak Yanez M.D. Director [facility] # [id number] Patient: PRICE GUARDADO [id number] (Continued) Specimen: [id number] Collected: 10/13/15-1639 Received: 10/13/15 (Continued) Procedure Result [...] These antibiotics are not available in the [facility] Formulary Contact the Microbiology Department for any additional antibiotic reporting. Fungal Cult - Other Sources Preliminary 10/24/15- 1325 ML Fungal Culture No Growth of Mycotic Organisms 1 week Acid Fast Stain - Direct Final 10/14/15- 0810 ML CONTINUED ON NEXT PAGE * ML=Testing performed at Main Lab DEPARTMENT OF PATHOLOGY, [address] [place] [address] Vinayak Yanez M.D. Director [facility] # [id number] Patient: PRICE GUARDADO [id number] (Continued) Specimen: [id number] Collected: 10/13/15-1639 Received: 10/13/15 (Continued) Procedure Result Reported Site Acid Fast Stain - Direct Final (continued) 10/14/15809 AFB Smear Result No Acid Fast Bacillus Present (Negative) Preparation By Direct Smear Due to limited sensitivity of the smear, results should be used as an adjunct in evaluating the patient's status and cultural examination is highly recommended for diagnosis. * ML - MAIN LAB ([facility]) . END OF REPORT * ML=Testing performed at Main Lab DEPARTMENT OF PATHOLOGY, [address], [place], [place] [address] Vinayak Yanez M.D. Director [facility] # [id number] 19 SEE RESULT BELOW Name: PRICE GUARDADO : [address]: Jessie Lazar MD Acct: [id number] Unit: [id number] AGE: 60 Location: [facility] Re10/13/15 SEX: M Status: REG SDC SPEC: [id number] GABO: 10/13/15-1640 [facility] DR: Jessie Lazar MD REQ: [id number] RECD: 10/13/15 STATUS: RES OTHR DR: Gabbie [...] performed at Main Lab DEPARTMENT OF PATHOLOGY, [address] [place] [address] Vinayak Yanez M.D. Director [facility] # [id number] 20 SEE RESULT BELOW Name: PRICE GUARDADO : [address]: Jessie Lazar MD Acct: [id number] Unit: [id number] AGE: 60 Location: [facility] 338-01 Re10/13/15 Dis: 10/19/15 SEX: M Status: DIS IN SPEC: [id number] GABO: 10/13/15-1640 [facility] DR: Jessie Lazar MD REQ: [id number] RECD: 10/13/15 STATUS: RES OTHR DR: Gabbie Shell MD _ SOURCE: WOUND SPDESC:KNEE LEFT ORDERED: Tissue Cult/GS/R, Fungal - Other/R, Acid Fast Stain/U COMMENTS: CLOSTRIDIUM FINDINGS IN ADDITION TO S. AUREUS: Verbal to DR. SHELL by [id number] at 1411 on 10/15/15. Results read back [...] performed at Main Lab DEPARTMENT OF PATHOLOGY, [address] [place] [address] Vinayak Yanez M.D. Director [facility] # [id number] Patient: PRICE GUARDADO [id number] (Continued) Specimen: [id number] Collected: 10/13/15-1639 Received: 10/13/15175 (Continued) Procedure Result Reported Site Acid Fast Stain - Direct Final (continued) 10/14/15- 817 Due to limited sensitivity of the smear, results should be used as an adjunct in evaluating the patient's status and cultural examination is highly recommended for diagnosis. * ML - MAIN LAB ([facility]) . END OF REPORT * ML=Testing performed at Main Lab DEPARTMENT OF PATHOLOGY, [address] [place] [address] Vinayak Yanez M.D. Director [facility] # [id number] 21 SEE RESULT BELOW Name: PRICE GUARDADO : [address]: Jessie Lazar MD Acct: [id number] Unit: [id number] AGE: 60 Location: [facility] 338-01 Re10/13/15 SEX: M Status: ADM IN SPEC: [id number] GABO: 10/13/15-[address]: Jessie Lazar MD REQ: [id number] RECD: 10/13/15 STATUS: RES OTHR DR: Gabbie Shell MD _ SOURCE: WOUND SPDESC:KNEE LEFT ORDERED: Anaerobic Cult/R, MRSA/SA SSTI/R, Culture Stain/R, Fungal - Other /R, Acid Fast Stain/U COMMENTS: Verbal to GEMINI HASKINSZONIA CHAWLA by [id number] at 2020 on 10/13/15. Results read back [...] performed at Main Lab DEPARTMENT OF PATHOLOGY, [address] [place] [address] Vinayak Yanez M.D. Director [facility] # [id number] Patient: PRICE GUARDADO [id number] (Continued) Specimen: [id number] Collected: 10/13/15 Received: 10/13/15 (Continued) Procedure Result Reported Site Acid Fast Stain - Direct Final (continued) 10/14/15809 Due to limited sensitivity of the smear, results should be used as an adjunct in evaluating the patient's status and cultural examination is highly recommended for diagnosis. * ML - MAIN LAB ([facility]) . END OF REPORT * ML=Testing performed at Main Lab DEPARTMENT OF PATHOLOGY, [address] [place] [address] Vinayak Yanez M.D. Director [facility] # [id number] 22 SEE RESULT BELOW Name: PRICE GUARDADO : [address]: Jessie Lazar MD Acct: [id number] Unit: [id number] AGE: 60 Location: [place] [address]- Re10/13/15 Dis: 10/19/15 SEX: M Status: DIS IN SPEC: [id number] GABO: 10/13/15-1640 [facility] DR: Jessie Lazar MD REQ: [id number] RECD: 10/13/15-1754 STATUS: RES OTHR DR: Gabbie Shell MD _ SOURCE: WOUND SPDESC:KNEE LEFT ORDERED: Anaerobic Cult/R, MRSA/SA SSTI/R, Culture Stain/R, Fungal - Other /R, Acid Fast Stain/U COMMENTS: Verbal to GEMINI AMY CHAWLA by [id number] at 2020 on 10/13/15. Results read back accurately. CLOSTRIDIUM FINDINGS IN ADDITION TO S. AUREUS: Verbal to DR. SHELL by [id number] at 1411 on 10/15/15. Results read back [...] performed at Main Lab DEPARTMENT OF PATHOLOGY, [address] [place] [address] Vinayak Yanez M.D. Director [facility] # [id number] Patient: PRICE GUARDADO [id number] (Continued) Specimen: [id number] Collected: 10/13/15 Received: 10/13/15 (Continued) Procedure Result [...] These antibiotics are not available in the [facility] Formulary Contact the Microbiology Department for any additional antibiotic reporting. Fungal Cult - Other Sources Preliminary 10/31/15- 1443 ML Fungal Culture No Growth of Mycotic Organisms 2 weeks Acid Fast Stain - Direct Final 10/14/15- 0810 ML CONTINUED ON NEXT PAGE * ML=Testing performed at Main Lab DEPARTMENT OF PATHOLOGY, [address] [place] [address] Vinayak Yanez M.D. Director [facility] # [id number] Patient: PRICE GUARDADO [id number] (Continued) Specimen: [id number] Collected: 10/13/15-1639 Received: 10/13/15-175 (Continued) Procedure Result Reported Site Acid Fast Stain - Direct Final (continued) 10/14/15- 809 AFB Smear Result No Acid Fast Bacillus Present (Negative) Preparation By Direct Smear Due to limited sensitivity of the smear, results should be used as an adjunct in evaluating the patient's status and cultural examination is highly recommended for diagnosis. * ML - MAIN LAB ([facility]) . END OF REPORT * ML=Testing performed at Main Lab DEPARTMENT OF PATHOLOGY, [address] [place] [address] Vinayak Yanez M.D. Director [facility] # [id number] 23 SEE RESULT BELOW Name: PRICE GUARDADO : [address]: Jessie Lazar MD Acct: [id number] Unit: [id number] AGE: 60 Location: [facility] Re10/13/15 SEX: M Status: REG [facility] SPEC: [id number] GABO: 10/13/15-1640 [facility] DR: Jessie Lazar MD REQ: [id number] RECD: 10/13/15 STATUS: RES OTHR DR: Gabbie [...] Direct PENDING * ML - MAIN LAB ([facility]) . END OF REPORT * ML=Testing performed at Main Lab DEPARTMENT OF PATHOLOGY, [address] [place] [address] Vinayak Yanez M.D. Director [facility] # [id number] 24 SEE RESULT BELOW Name: PRICE GUARDADO : [address]: Jessie Lazar MD Acct: [id number] Unit: [id number] AGE: 60 Location: [facility] 338-01 Re10/13/15 Dis: 10/19/15 SEX: M Status: DIS IN SPEC: [id number] GABO: 10/13/15-1640 [facility] DR: Jessie Lazar MD REQ: [id number] RECD: 10/13/15722 STATUS: RES OTHR DR: Gabbie Shell MD _ SOURCE: WOUND SPDESC:KNEE LEFT ORDERED: Tissue Cult/GS/R, Fungal - Other/R, Acid Fast Stain/U COMMENTS: CLOSTRIDIUM FINDINGS IN ADDITION TO S. AUREUS: Verbal to DR. SHELL by [id number] at 1411 on 10/15/15. Results read back [...] performed at Main Lab DEPARTMENT OF PATHOLOGY, [address] [place] [address] Vinayak Yanez M.D. Director [facility] # [id number] Patient: PRICE GUARDADO [id number] (Continued) Specimen: [id number] Collected: 10/13/15-1639 Received: 10/13/15 (Continued) Procedure Result Reported Site Acid Fast Stain - Direct Final (continued) 10/14/15817 Due to limited sensitivity of the smear, results should be used as an adjunct in evaluating the patient's status and cultural examination is highly recommended for diagnosis. * ML - MAIN LAB ([facility]) . END OF REPORT * ML=Testing performed at Main Lab DEPARTMENT OF PATHOLOGY, [address] [place] [address] Vinayak Yanez M.D. Director [facility] # [id number] 25 SEE RESULT BELOW Name: PRICE GUARDADO : [address]: Jessie Lazar MD Acct: [id number] Unit: [id number] AGE: 60 Location: [address] Re10/13/15 SEX: M Status: ADM IN SPEC: [id number] GABO: 10/13/15-1640 [facility] DR: Jessie Lazar MD REQ: [id number] RECD: 10/13/15 STATUS: RES OTHR DR: Gabbie Shell MD _ SOURCE: WOUND SPDESC:KNEE LEFT ORDERED: Anaerobic Cult/R, MRSA/SA SSTI/R, Culture Stain/R, Fungal - Other /R, Acid Fast Stain/U COMMENTS: Verbal to GEMINI CHAWLA by [id number] at 2020 on 10/13/15. Results read back [...] ON NEXT PAGE * ML=Testing performed at [facility] Lab DEPARTMENT OF PATHOLOGY, [address] [place] [address] Vinayak Yanez M.D. Director [facility] # [id number] Patient: PRICE GUARDADO [id number] (Continued) Specimen: [id number] Collected: 10/13/15-1640 Received: 10/13/15 (Continued) Procedure Result Reported Site Acid Fast Stain - Direct Final (continued) 10/14/15809 Due to limited sensitivity of the smear, results should be used as an adjunct in evaluating the patient's status and cultural examination is highly recommended for diagnosis. * ML - MAIN LAB ([facility]) . END OF REPORT * ML=Testing performed at Main Lab DEPARTMENT OF PATHOLOGY, [address] [place] [address] Vinayak Yanez M.D. Director [facility] # [id number] 26 SEE RESULT BELOW Name: PRICE GUARDADO : [address]: Jessie Lazar MD Acct: [id number] Unit: [id number] AGE: 60 Location: [place] [address]- Re10/13/15 Dis: 10/19/15 SEX: M Status: DIS IN SPEC: [id number] GABO: 10/13/15-1640 [facility] DR: Jessie Lazar MD REQ: [id number] RECD: 10/13/15 STATUS: RES OTHR DR: Gabbie Shell MD _ SOURCE: WOUND SPDESC:KNEE LEFT ORDERED: Anaerobic Cult/R, MRSA/SA SSTI/R, Culture Stain/R, Fungal - Other /R, Acid Fast Stain/U COMMENTS: Verbal to GEMINI CHAWLA by [id number] at 2020 on 10/13/15. Results read back accurately. CLOSTRIDIUM FINDINGS IN ADDITION TO S. AUREUS: Verbal to DR. SHELL by [id number] at 1411 on 10/15/15. Results read back [...] ON NEXT PAGE * ML=Testing performed at [facility] Lab DEPARTMENT OF PATHOLOGY, [address] [place] [address] Vinayak Yanez M.D. Director [facility] # [id number] Patient: PRICE GUARDADO [id number] (Continued) Specimen: [id number] Collected: 10/13/15 Received: 10/13/15 (Continued) Procedure Result [...] These antibiotics are not available in the [facility] Formulary Contact the Microbiology Department for any additional antibiotic reporting. Fungal Cult - Other Sources Preliminary 11/07/15- 1229 ML Fungal Culture No Growth of Mycotic Organisms 3 weeks Acid Fast Stain - Direct Final 10/14/15809 ML CONTINUED ON NEXT PAGE * ML=Testing performed at Main Lab DEPARTMENT OF PATHOLOGY, [address] [place] [address] Vinayak Yanez M.D. Director [facility] # [id number] Patient: PRICE GUARDADO [id number] (Continued) Specimen: [id number] Collected: 10/13/15 Received: 10/13/15 (Continued) Procedure Result [...] performed at Main Lab DEPARTMENT OF PATHOLOGY, [address] [place] [address] Vinayak Yanez M.D. Director [facility] # [id number] 27 SEE RESULT BELOW Name: PRICE GUARDADO : [address]: Jessie Lazar MD Acct: [id number] Unit: [id number] AGE: 60 Location: [facility] Re10/13/15 SEX: M Status: REG SDC SPEC: [id number] GABO: 10/13/15-1640 [facility] DR: Jessie Lazar MD REQ: [id number] RECD: 10/13/15921 STATUS: RES OTHR DR: Gabbie Shell MD [...] Direct PENDING * ML - MAIN LAB ([facility]) . END OF REPORT * ML=Testing performed at Main Lab DEPARTMENT OF PATHOLOGY, [address] [place] [address] Vinayak Yanez M.D. Director [facility] # [id number] 28 SEE RESULT BELOW Name: PRICE GUARDADO : [address]: Jessie Lazar MD Acct: [id number] Unit: [id number] AGE: 60 Location: [facility] 338-01 Re10/13/15 Dis: 10/19/15 SEX: M Status: DIS IN SPEC: [id number] GABO: 10/13/15-1640 [facility] DR: Jessie Lazar MD REQ: [id number] RECD: 10/13/15 STATUS: COMP OTHR DR: Gabbie Shell MD _ SOURCE: WOUND SPDESC:KNEE LEFT ORDERED: Tissue Cult/GS/R, Fungal - Other/R, Acid Fast Stain/U COMMENTS: CLOSTRIDIUM FINDINGS IN ADDITION TO S. AUREUS: Verbal to DR. SHELL by [id number] at 1411 on 10/15/15. Results read back [...] ON NEXT PAGE * ML=Testing performed at [facility] Lab DEPARTMENT OF PATHOLOGY, [address] [place] [address] Vinayak Yanez M.D. Director [facility] # [id number] Patient: PRICE GUARDADO [id number] (Continued) Specimen: [id number] Collected: 10/13/15-1639 Received: 10/13/15-175 (Continued) Procedure Result Reported Site Acid Fast Stain - Direct Final (continued) 10/14/15- 817 Due to limited sensitivity of the smear, results should be used as an adjunct in evaluating the patient's status and cultural examination is highly recommended for diagnosis. * ML - MAIN LAB ([facility]) . END OF REPORT * ML=Testing performed at Main Lab DEPARTMENT OF PATHOLOGY, [address] [place] [address] Vinayak Yanez M.D. Director [facility] # [id number] 29 SEE RESULT BELOW Name: PRICE GUARDADO : [address]: Jessie Lazar MD Acct: [id number] Unit: [id number] AGE: 60 Location: [facility] 338-01 Re10/13/15 SEX: M Status: ADM IN SPEC: [id number] GABO: 10/13/15-[address]: Jessie Lazar MD REQ: [id number] RECD: 10/13/15 STATUS: RES OTHR DR: Gabbie Shell MD _ SOURCE: WOUND SPDESC:KNEE LEFT ORDERED: Anaerobic Cult/R, MRSA/SA SSTI/R, Culture Stain/R, Fungal - Other /R, Acid Fast Stain/U COMMENTS: Verbal to GMEINI CHAWLA by [id number] at 2020 on 10/13/15. Results read back [...] performed at Main Lab DEPARTMENT OF PATHOLOGY, [address] [place] [address] Vinayak Yanez M.D. Director [facility] # [id number] Patient: PRICE GUARDADO [id number] (Continued) Specimen: [id number] Collected: 10/13/15 Received: 10/13/15 (Continued) Procedure Result Reported Site Acid Fast Stain - Direct Final (continued) 10/14/15809 Due to limited sensitivity of the smear, results should be used as an adjunct in evaluating the patient's status and cultural examination is highly recommended for diagnosis. * ML - MAIN LAB ([facility]) . END OF REPORT * ML=Testing performed at Main Lab DEPARTMENT OF PATHOLOGY, [address] [place] [address] Vinayak Yanez M.D. Director [facility] # [id number] 30 SEE RESULT BELOW Name: PRICE GUARDADO Arcenio : [address]: Jessie Lazar MD Acct: [id number] Unit: [id number] AGE: 60 Location: [facility] 338-01 Re10/13/15 Dis: 10/19/15 SEX: M Status: DIS IN SPEC: [id number] GABO: 10/13/15-[address] [place] [address] DR: Jessie Lazar MD REQ: [id number] RECD: 10/13/15 STATUS: DOLORES CARLOS DR: Gabbie Shell MD _ SOURCE: WOUND SPDESC:KNEE LEFT ORDERED: Anaerobic Cult/R, MRSA/SA SSTI/R, Culture Stain/R, Fungal - Other /R, Acid Fast Stain/U COMMENTS: Verbal to GEMINI AMY CHAWLA by [id number] at 2020 on 10/13/15. Results read back accurately. CLOSTRIDIUM FINDINGS IN ADDITION TO S. AUREUS: Verbal to DR. SHELL by [id number] at 1411 on 10/15/15. Results read back [...] performed at Main Lab DEPARTMENT OF PATHOLOGY, [address] [place] [address] Vinayak Yanez M.D. Director [facility] # [id number] Patient: DEBBYPRICE Rg [id number] (Continued) Specimen: [id number] Collected: 10/13/15 Received: 10/13/15 (Continued) Procedure Result [...] These antibiotics are not available in the [facility] Formulary Contact the Microbiology Department for any additional antibiotic reporting. Fungal Cult - Other Sources Final 11/14/15- 1427 ML Fungal Culture No Growth of Mycotic Organisms 4 weeks Acid Fast Stain - Direct Final 10/14/15- 0810 ML CONTINUED ON NEXT PAGE * ML=Testing performed at Main Lab DEPARTMENT OF PATHOLOGY, [address] [place] [address] Vinayak Yanez M.D. Director [facility] # [id number] Patient: PRICE GUARDADO [id number] (Continued) Specimen: [id number] Collected: 10/13/15 Received: 10/13/151754 (Continued) Procedure Result Reported Site Acid Fast Stain - Direct Final (continued) 10/14/15809 AFB Smear Result No Acid Fast Bacillus Present (Negative) Preparation By Direct Smear Due to limited sensitivity of the smear, results should be used as an adjunct in evaluating the patient's status and cultural examination is highly recommended for diagnosis. * ML - MAIN LAB ([facility]) . END OF REPORT * ML=Testing performed at Main Lab DEPARTMENT OF PATHOLOGY, [address] [place] [address] Vinayak Yanez M.D. Director [facility] # [id number] SOURCE: KNEE, KNEE WOUND SWAB MYCOBACTERIAL CULTURE FINAL No growth after 60 days of incubation. Test Performed by: [address] [address] Engraving Operator: Cam Isidro II, M.D., Ph.D. Procedures Date CPT Code Description Status 04/24/2018 60968 Amputation,Toe;Interphalangeal Joint Completed 04/24/2018 09782 Amputation,Toe;Interphalangeal Joint Completed 04/24/2018 24887 Amputation,Toe;Interphalangeal Joint Completed 04/24/2018 71110 Amputation,Toe;Interphalangeal Joint Completed 12/10/2016 59724 ECHO Transthorasic Realtime 2D W Doppler & Color Flow Completed Hosp 12/09/2016 89307 EKG, Interpretation Only Completed 01/10/2016 34046 Treadmill Interp/Report Only Completed 01/10/2016 89119 Stress Test Supervsn W/Out I/R Completed 10/15/2015 47975 Arthroscopy,Knee For Infection,Lavage & Drainage Completed 10/15/2015 72762 Arthroscopy,Knee For Infection,Lavage & Drainage Completed 10/15/2015 17605 Arthroscopy,Knee For Infection,Lavage & Drainage Completed 10/15/2015 26124 Arthroscopy,Knee For Infection,Lavage & Drainage Completed 10/13/2015 54480 Arthroscopy,Knee,Meniscectomy Medial Or Lateral Completed 10/13/2015 50652 Arthroscopy,Knee,Meniscectomy Medial Or Lateral Completed 10/13/2015 00216 Arthroscopy,Knee For Infection,Lavage & Drainage Completed 05/18/2013 10435 EEG Recording Awake & Asleep Completed 03/13/2013 85709 Color Flow Doppler/Interp & Reprt Completed 03/13/2013 53740 Pulse Wave/Continuous-Interp.RPT Completed 03/13/2013 50145 Echocardiography, Transesophageal, Real Time W/Image 2D Completed W/W/O M-M Encounters Type Date Location Provider CPT E/M Dx [facility] [address] Z89.412 1:40p Infectious Diseases Gabrielle García E11.52 Office Visit 04/22/2018 1:30p [facility] [place] [address] M86.172 C[facility] Office Visit 04/19/2018 9:33a [facility] [place] [address] Z47.89 C.M.A. Office Visit 04/19/2018 11:31a [facility] [place] [address] L97.513 Assoc,pc Hospitalists E11.52 I73.9 Office Visit 04/18/2018 11:30a [facility] Aldo Lambert 99021 L97.513 Assoc,pc Hospitalists [place] E11.52 I73.9 F32.9 G25.0 Office Visit 04/17/2018 11:30a [facility] Joe Ramírez, [address]124 L97.513 Hospitalists Gabrielle E11.52 Office Visit 04/16/2018 1:09p [facility] Steffanie [place] [address] I73.9 Hospitalists MARJORIE Bradley E11.51 Office Visit 04/15/2018 12:44p [facility] Madalyn García, 17286 E11.52 Infectious Diseases Gabrielle Z86.73 Office Visit 04/15/2018 11:29a [facility] [address] L97.513 Hospitalists E11.9 F32.9 Office Visit 12/10/2016 2:49p [facility] [address] G45.9 Office Visit 12/10/2016 3:56p [facility], Tiffanie Hope, 12091 R07.2 Hospitalists CATTLE KILLER R55 E11.9 G45.9 Office Visit 12/09/2016 1:48p [facility] Sae Major, 33271 G45.9 M.D. Office Visit 12/09/2016 3:55p [facility] Orlin Junior 74000 R55 Hospitalists Gabrielle LI R07.2 E11.9 G45.9 Office Visit 01/10/2016 12:51p [facility] Sadie Rivera, 82808 R07.9 Assoc, CATTLE KILLER Hospitalists N17.9 E11.9 I10 Office Visit 01/09/2016 12:50p [facility] Estefanía Lewis, N.P. 08551 R07.9 Hospitalists E11.9 N17.9 I10 Office Visit 11/30/2015 3:20p [facility] Madalyn Jordan 15501 M00.062 Infectious Noé García M.D. Office Visit 11/16/2015 3:20p [facility] Madalyn Jordan 32502 M00.062 Infectious Diseases Gabrielle García B96.7 Office Visit 11/03/2015 2:00p [facility] Madalyn Jordan 51682 M00.062 Infectious Diseases Gabrielle García M00.062 Office Visit 10/19/2015 9:02a [facility] Jamar Jordan 30177 M00.062 Infectious Diseases Gabrielle García L02.416 Office Visit 10/19/2015 10:02a [facility] [place] [address] M00.062 Assoc, Hospitalists B96.7 E11.8 Office Visit 10/18/2015 8:56a [facility] Jamar Jordan 40862 M00.062 Infectious Diseases Gabrielle García R19.7 V99.xxxA B96.7 Office Visit 10/18/2015 10:02a [facility] Assoc, [place], 55549 M00.062 Hospitalists Gabrielle E11.8 B96.7 Office Visit 10/17/2015 [facility] [place], 24119 M00.062 Hospitalists Gabirelle B96.7 E11.8 Office Visit 10/16/2015 10:00a [facility] Assoc, [place], 55153 M00.062 Hospitalists Gabrielle B96.7 E11.8 Office Visit 10/15/2015 10:00a [facility] [place], [address]858 M00.062 Hospitalists Gabrielle B96.7 E11.8 Office Visit 10/14/2015 9:59a [facility], Nasima Colmenares, 71639 M00.062 Hospitalists D.O. E11.8 Office Visit 10/13/2015 9:58a [facility] Tiffanie Hope, 38702 M00.062 Assoc, Hospitalists CATTLE KILLER E11.8 Office Visit 10/13/2015 7:00a [facility] [place] [address] M25.562 C.M.A. M25.462 S81.012A B96.89 Office Visit 07/29/2013 8:30a [facility] [place], 22343 333.1 Services Of Pal Anthony Office Visit 06/19/2013 11:30a [facility] [place], 48858 437.9 Services Of Continuity Tester M.D. Office Visit 05/12/2013 10:45a [facility] Paul Macario Arnold, 67231 345.40 Services Of Continuity Tester M.D. 438.89 331.83 Office Visit 03/13/2013 12:53p [facility] [place], [address]0864 435.9 Services Of Continuity Tester M.D. Office Visit 03/13/2013 2:43p [facility] Nasima Col[place], [address] 784.51 [facility] D.O. 272.2 435.9 305.1 Office Visit 03/12/2013 12:52p [facility] Sanchez [place], 29827 435.9 Services Of [facility] M.D. Office Visit 03/12/2013 2:42p [facility] [place] [address] 784.51 [facility] Hospital[facility] 272.2 434.11 305.1 Plan of Care Future Appointment(s):05/09/2018 1:15 pm - Jose Juan King MD at [facility].M.A.05/08/2018 - Jamar García M.D.Z89.412 Acquired absence of left great toeComments:call if drainage, swelling, or nsygiY90.52 Type 2 diabetes w diabetic peripheral angiopathy w gangreneComments:healing well , no cellulitis, finish keflex as prescribed
--- OUTSIDE RECORDS SUMMARY | 2018-05-27 17:09 | XMS REPORT ---
:1955 External Reference #:[id number] Author Organization [facility] Address [address] [place] [address] Phone [phone] Care Team Providers Name Role Phone Gabbie Botello M.D. Care Team Information Release Specialist Unavailable Gabbie Botello M.D. Primary Care Physician Unavailable Payers Type Date Identification Payment Subscriber Numbers Provider Health Maintenance Effective: Policy Number: [facility] ([facility]) 09/30/2010 [id number] [facility] Number: [id number] [id number] PayID: [id number] [place] [address] Commercial Policy Number: [id number] Insurance Change Price [employer] Name: Medicare PayID: [id number] Problems Date Description Provider Status Onset: 10/28/2014 Essential tremor Cas Salas Active Onset: 10/28/2014 Mixed hyperlipidemia Cas Salas Active Onset: 10/28/2014 Depressive disorder Doroteo Willis M.D. Active Onset: 10/28/2014 Type 2 diabetes mellitus with Gabbie Botello M.D. Active multiple complications Onset: 10/28/2014 Complex partial epileptic seizure Gabbie Botello M.D. Active Onset: 10/28/2014 History of cerebrovascular Gabbie Botello M.D. Active accident without residual deficits Onset: 09/08/2015 Type II diabetes mellitus Gabbie Botello M.D. Active uncontrolled Onset: 01/17/2016 Tobacco user Gabbie Botello M.D. Active Onset: 04/19/2016 Nausea and vomiting Paco Hurt M.D. 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 Active Onset: 05/02/2012 Cellulitis and abscess of upper Yogesh Eliud Hutton M.D. Resolved limb Resolved: 10/28/2014 Onset: 10/28/2014 Cerebral artery occlusion Doroteo Willis M.D. Resolved Resolved: 05/08/2016 Family History Date Family Member(s) Problem(s) Comments Father Cancer Father due to Cancer () Father Heart Disease Mother due to Natural Causes () Mother Hypertension Number of Children 3 Social History Type Date Description Comments Marital Status Patient is Diet Patient is on a diabetic diet Occupation working for [email or web address] Cigarette Use Former Cigarette Smoker ETOH Use Denies alcohol use Smoking Patient is a former smoker Allergies, Adverse Reactions, Alerts Date Description Reaction Status Severity Comments 05/02/2012 NKDA active Medications Medication Date Status Form Strength Qnty SIG Indications Ordering Provider Loperamide 02/22/ Active Capsules 2mg 90cap 2 tabs at R19.7 Gabbie HCL 2018 s onset of [place], diarrhea and M.D. can repeat after each loose stool max 8 tabs daily Lancets Ultra 10/02/ Active Misc Thin 30G 300un tests blood Gabbie Thin 30G 2018 its glucose three [place], times day - M.D. dx: e11.9 - last seen 08/29/17 Glipizide ER 06/19/ Active Tablets 10mg 30tab 1 tab by E11.65 Gabbie 2017 ER 24HR s mouth every [place], day M.D. Metformin HCL 04/16/ Active Tablets 500mg 1 by mouth E11.65 2016 daily [place], M.D. Lorazepam 11/27/ Active Tablets 1mg 90tab 1/2-1 tab by F33.0 Gabbie 2016 s mouth three [place], times a day M.D. as needed Freestyle 05/03/ Active Strips 180un test 3x daily E11.65 Gabbie Insulinx 2015 its dx:e11.9 [place], Blood Glucose M.D. Test Strips Freestyle 02/05/ Active Kit W/Device 1unit monitor blood Gabbie Insulinx 2016 s glucose [place], Blood Glucose fasting 3x M.D. Monitoring daily System Pravastatin 05/16/ Active Tablets 20mg 90tab Take 1 Tablet E78.2 Paco F. Sodium 2014 s By Mouth [place], Every Day M.D. Maximum Daily Dose Of 1 Per Day Wellbutrin / Active Tablets 300mg 1 po qd Unknown 0000 Lamictal / Active Tablets 200mg 1 po bid Unknown 0000 V-Go 30 / Active insulin Unknown 0000 disposable pump-apply daily to deliver 1.25 units per hour and on demand Docusate / Active Capsules 100mg 1 by mouth Unknown Sodium 0000 twice a day as needed constipation Plavix / Active Tablets 75mg 1 by mouth Unknown 0000 every day Nicotine / Active Patches 14mg/24HR apply new Unknown Transdermal 0000 24HR patch daily System Glipizide ER 08/30/ Hx Tablets 5mg 90tab 1 tab by E11.65 Gabbie 2016 - ER 24HR s mouth every , 04/16/ day M.D. 2017 Dicyclomine 07/25/ Hx Capsules 10mg 90cap 1 tab every 6 R15.2 Gabbie HCL 2016 - s hours a , 04/16/ needed M.D. 2017 Reglan 05/03/ Hx Tablets 10mg 30tab take 1 tablet R11.2 Doroteo Nava 2016 - s by mouth 3 [place], 06/19/ times daily M.D. 2017 as needed Lisinopril 12/05/ Hx Tablets 20mg 30tab 1 by mouth E11.65 Gabbie 2016 - s every day , 06/19/ M.D. 2017 Dicyclomine 05/05/ Hx Capsules 10mg 90cap 1 tab every 6 R15.2 Gabbie HCL 2015 - s hours a [place], 01/16/ needed M.D. 2016 Lisinopril 01/14/ Hx Tablets 5mg 30tab 1 by mouth E11.65 Gabbie 2015 - s every day , 12/05/ M.D. 2016 Glipizide ER 10/28/ Hx Tablets 10mg 30tab 1 tab by E11.65 Gabbie 2015 - ER 24HR s mouth every , 08/30/ day M.D. 2016 Lantus 10/28/ Hx Solution 100Unit/M 6unit 25 units in E11.65 Doroteo Chiu 2015 - Pen-Injec L s the morning Breiman, 06/19/ t and 50 units M.D. 2016 at night Lantus 10/11/ Hx Solution 100Unit/M 1mont inject 55 Doroteo Chiu 2015 - Pen-Injec L h units q pm as Isadorapiterberenice, 10/28/ t directed M.D. 2015 Glipizide XL 04/04/ Hx Tablets 5mg 30tab Take 1 Tablet Doroteo Nava 2013 - ER 24HR s By Mouth One Lazaro, 01/08/ Time Daily M.D. 2015 Pravastatin 07/21/ Hx Tablets 10mg 30tab 1 by mouth 272.2 Gabbie Sodium 2012 - s every day [place], 05/16/ M.D. 2015 Bactrim DS 11/04/ Hx Tablets 800-160mg 20tab 1 po bid x 10 682.3 Heidi 2012 - january fill Rm, 11/18/ w/ generic Afnp-C 2013 Glipizide ER 11/04/ Hx Tablets 5mg 30tab Take One 250.00 Heidi 2012 - ER 24HR s Tablet By Rm, 10/28/ Mouth Once Afnp-C 2015 Daily Amoxicillin/C 05/02/ Hx Tablets 875-125mg 20tab 1 bid w/ Yogesh kulkarniulanate 2011 - s food. Midura, Potassium 09/02/ M.D. 2012 Keflex 05/07/ Hx Capsules 500mg 20cap 1 po bid Doroteo Nava 2010 - s Lazaro, 05/02/ M.D. 2012 BD Pen Needle 04/09/ Hx 100un use twice a Doroteo Coates 2010 - day with Lazaro, 31GX5/16"_8mm 06/19/ lantus pen dx M.D. 2016 250.00 Vicodin 03/02/ Hx Tablets 5-500mg 30tab 1 po q4hrs Doroteo Nava 2010 - s prn Lazaro, 05/02/ M.D. 2012 Handicapped 02/21/ Hx needs Doroteo Nava [place]ing [place] 2010 - handicapped Lazaro, 01/11/ sticker for M.D. 2015 3 mths due to back pain [place] 01/12/ Hx use day Doroteo Haider 2010 - Lazaro, 09/02/ M.D. 2012 Lantus 01/12/ Hx Sopn 100Unit/M 15uni inject 55 Doroteo Chiu 2010 - L ts units under Breiman, 10/11/ the skin M.D. 2015 every evening as directed Ativan 04/06/ Hx Tablets 0.5mg 90tab 1 po tid Doroteo Nava 2010 - s [place], 01/12/ M.D. 2010 Elete 01/26/ Hx 1BLT elete Doroteo Nava 2009 - glucometer [facility], 01/16/ sticks M.D. 2016 Lantus 01/26/ Hx Solution 100Unit/M 1vial 30units daily [facility] 2009 [facility] adventis M.[facility]. 2011 santifi pen Lantus 01/25/ Hx use 10 Doroteo Alcaraz 2009 - units at [facility], 02/21/ night M.D. 2010 Lantus Pen 01/25/ Hx Misc 31GX5/16 100un syringes and Doroteo Nava [place] 2009 - its needles [facility] 06[facility]19/ M.D. 2016 Pravachol 05/06/ Hx Tabs 40mg 30tab Take One Doroteo Messina - s Tablet By Lazaro, 09/02/ Mouth AT M.D. 2011 Bedtime Lexapro 04/25/ Hx Tablets 10mg 30tab 1 po qd Doroteo Nava 2009 - s Breimaberenice, 06/20/ M.D. 2009 Penvk 03/18/ Hx 500 20uni use bid x Doroteo Nava 2009 - ts 10 days Isadoraimaberenice, 04/25/ M.D. 2009 Vitamin B 02/04/ Hx Capsules po qd [facility] 2009 - [facility] 02/21/ [facility] 2011 [facility] [place] Aspirin 02/04/ Hx Tablets 81mg 1 po qd [facility] - [facility] 05/05/ [facility] 2015 [facility] [place] Metformin HCL 02/04/ Hx Tablets 1000mg 60tab take 1 tablet E11.65 Doroteo Nava 2009 - s by mouth two Breiman, 04/16/ times daily M.D. 2016 Chantix / Hx 1unit as directed Doroteo Drake 0000 - s Isadoraimaberenice, 02/25/ M.D. 2008 Lisinopril / Hx Tablets 2.5mg 1 po qd Unknown 0000 - 2009 Lexapro / Hx Tablets 10mg 30tab 1 po qd Unknown 0000 - s 2010 Zoloft / Hx Tablets 200mg 90tab 1 po qd Unknown 0000 - s 2015 Lamictal / Hx Chewtabs 2mg Unknown 0000 - 2012 Imodium A-D / Hx Tablets 2mg take 1 tablet Unknown 0000 - by mouth loose 2016 bowel movement then 1 tab after each additional episode as needed (mdd=4 tabs) Vital Signs Date Vital Result Comment 04/28/2018 BP Systolic 112 mmHg BP Diastolic 60 mmHg Heart Rate 74 /min Body Temperature 97.3 F Respiratory Rate 17 /min Height 66 inches 5'6" 02/22/2018 BP Systolic 114 mmHg BP Diastolic 60 mmHg Heart Rate 78 /min Body Temperature 98.6 F Respiratory Rate 16 /min Height 66 inches 5'6" Weight 190.25 lb BMI (Body Mass Index) 30.7 kg/m2 12/23/2017 BP Systolic 126 mmHg BP Diastolic 78 mmHg Heart Rate 72 /min Body Temperature 97.9 F Respiratory Rate 16 /min Height 66 inches 5'6" Weight 181.25 lb BMI (Body Mass Index) 29.3 kg/m2 08/20/2017 BP Systolic 96 mmHg BP Diastolic 58 mmHg Heart Rate 58 /min Body Temperature 97.7 F Height 66 inches 5'6" Weight 177.12 lb BMI (Body Mass Index) 28.6 kg/m2 06/19/2017 BP Systolic 112 mmHg BP Diastolic 70 mmHg Heart Rate 78 /min Body Temperature 97.9 F Respiratory Rate 16 /min Height 66 inches 5'6" Weight 173.50 lb BMI (Body Mass Index) 28.0 kg/m2 04/16/2017 BP Systolic 142 mmHg BP Diastolic 80 mmHg Heart Rate 76 /min Body Temperature 97.4 F Height 66 inches 5'6" Weight 183.00 lb BMI (Body Mass Index) 29.5 kg/m2 01/15/2017 BP Systolic 110 mmHg BP Diastolic 60 mmHg Heart Rate 84 /min Body Temperature 97.5 F Respiratory Rate 16 /min Height 66 inches 5'6" Weight 178.00 lb BMI (Body Mass Index) 28.7 kg/m2 11/27/2016 BP Systolic 120 mmHg BP Diastolic 80 mmHg Heart Rate 80 /min Body Temperature 97.9 F Respiratory Rate 18 /min Height 66 inches 5'6" Weight 179.00 lb BMI (Body Mass Index) 28.9 kg/m2 07/25/2016 BP Systolic 100 mmHg BP Diastolic 60 mmHg Heart Rate 72 /min Body Temperature 97.5 F Respiratory Rate 16 /min Height 66 inches 5'6" Weight 190.38 lb BMI (Body Mass Index) 30.7 kg/m2 06/19/2016 BP Systolic 104 mmHg BP Diastolic 62 mmHg Heart Rate 96 /min Body Temperature 98.2 F Respiratory Rate 20 /min Height 66 inches 5'6" Weight 186.38 lb BMI (Body Mass Index) 30.1 kg/m2 05/03/2016 BP Systolic 116 mmHg BP Diastolic 64 mmHg Heart Rate 96 /min Body Temperature 98.1 F Respiratory Rate 16 /min Height 66 inches 5'6" Weight 184.25 lb BMI (Body Mass Index) 29.7 kg/m2 04/14/2016 BP Systolic 138 mmHg BP Diastolic 80 mmHg Heart Rate 96 /min Body Temperature 98.1 F Respiratory Rate 16 /min Height 66 inches 5'6" Weight 185.00 lb BMI (Body Mass Index) 29.9 kg/m2 01/17/2016 BP Systolic 116 mmHg BP Diastolic 70 mmHg Heart Rate 88 /min Body Temperature 98.1 F Respiratory Rate 16 /min Height 66 inches 5'6" Weight 191.00 lb BMI (Body Mass Index) 30.8 kg/m2 12/08/2015 BP Systolic 98 mmHg BP Diastolic 60 mmHg Heart Rate 88 /min Body Temperature 97.7 F Height 66 inches 5'6" Weight 191.00 lb BMI (Body Mass Index) 30.8 kg/m2 09/08/2015 BP Systolic 116 mmHg BP Diastolic 60 mmHg Heart Rate 78 /min Body Temperature 96.4 F Respiratory Rate 16 /min Weight 203.25 lb 07/07/2015 BP Systolic 110 mmHg BP Diastolic 66 mmHg Heart Rate 84 /min Body Temperature 97.8 F Respiratory Rate 16 /min Weight 199.12 lb 05/05/2015 BP Systolic 154 mmHg BP Diastolic 70 mmHg Heart Rate 96 /min Body Temperature 97.3 F Respiratory Rate 16 /min Height 66 inches 5'6" Weight 195.00 lb BMI (Body Mass Index) 31.5 kg/m2 01/11/2015 BP Systolic 120 mmHg BP Diastolic 70 mmHg Heart Rate 88 /min Body Temperature 98.8 F Respiratory Rate 16 /min Height 66 inches 5'6" Weight 196.00 lb BMI (Body Mass Index) 31.6 kg/m2 01/06/2015 BP Systolic 120 mmHg BP Diastolic 76 mmHg Heart Rate 88 /min Body Temperature 96.9 F Respiratory Rate 18 /min Height 66 inches 5'6" Weight 193.00 lb BMI (Body Mass Index) 31.1 kg/m2 10/28/2014 BP Systolic 116 mmHg BP Diastolic 78 mmHg Heart Rate 90 /min Body Temperature 96.1 F Respiratory Rate 16 /min Height 66 inches 5'6" Weight 190.38 lb BMI (Body Mass Index) 30.7 kg/m2 10/05/2014 BP Systolic 112 mmHg BP Diastolic 62 mmHg Heart Rate 84 /min Body Temperature 97.5 F Respiratory Rate 18 /min Height 66 inches 5'6" Weight 189.00 lb BMI (Body Mass Index) 30.5 kg/m2 07/21/2013 BP Systolic 136 mmHg BP Diastolic 80 mmHg Heart Rate 72 /min Body Temperature 97.3 F Respiratory Rate 18 /min Height 66 inches 5'6" Weight 199.38 lb BMI (Body Mass Index) 32.2 kg/m2 03/10/2013 BP Systolic 102 mmHg BP Diastolic 60 mmHg Heart Rate 88 /min Body Temperature 97.6 F Respiratory Rate 20 /min Height 66 inches 5'6" Weight 193.00 lb BMI (Body Mass Index) 31.1 kg/m2 12/02/2012 BP Systolic 118 mmHg BP Diastolic 70 mmHg Heart Rate 76 /min Body Temperature 97.4 F Height 66 inches 5'6" Weight 187.00 lb BMI (Body Mass Index) 30.2 kg/m2 11/18/2012 BP Systolic 110 mmHg BP Diastolic 54 mmHg Heart Rate 72 /min Body Temperature 96.7 F Respiratory Rate 18 /min Height 66 inches 5'6" Weight 187.25 lb BMI (Body Mass Index) 30.2 kg/m2 11/04/2012 BP Systolic 110 mmHg BP Diastolic 70 mmHg Heart Rate 96 /min Height 66 inches 5'6" Weight 181.00 lb BMI (Body Mass Index) 29.2 kg/m2 10/02/2012 BP Systolic 130 mmHg BP Diastolic 80 mmHg Heart Rate 76 /min Body Temperature 97.0 F Height 66 inches 5'6" Weight 181.00 lb BMI (Body Mass Index) 29.2 kg/m2 09/02/2012 BP Systolic 110 mmHg BP Diastolic 68 mmHg Heart Rate 76 /min Height 66 inches 5'6" Weight 180.00 lb BMI (Body Mass Index) 29.0 kg/m2 05/02/2012 BP Systolic 118 mmHg BP Diastolic 60 mmHg Heart Rate 78 /min Body Temperature 96.8 F Height 66 inches 5'6" Weight 179.00 lb BMI (Body Mass Index) 28.9 kg/m2 05/07/2011 BP Systolic 118 mmHg BP Diastolic 80 mmHg Heart Rate 76 /min Respiratory Rate 14 /min Height 66 inches 5'6" Weight 191.00 lb BMI (Body Mass Index) 30.8 kg/m2 03/02/2011 BP Systolic 100 mmHg BP Diastolic 60 mmHg Heart Rate 88 /min Body Temperature 97.0 F Respiratory Rate 20 /min Height 66 inches 5'6" Weight 187.00 lb BMI (Body Mass Index) 30.2 kg/m2 02/21/2011 BP Systolic 120 mmHg BP Diastolic 68 mmHg Heart Rate 80 /min Body Temperature 98.7 F Respiratory Rate 24 /min Height 66 inches 5'6" Weight 187.00 lb BMI (Body Mass Index) 30.2 kg/m2 01/12/2011 BP Systolic 128 mmHg BP Diastolic 72 mmHg Heart Rate 76 /min Height 66 inches 5'6" Weight 182.00 lb BMI (Body Mass Index) 29.4 kg/m2 04/06/2010 BP Systolic 122 mmHg BP Diastolic 72 mmHg Heart Rate 88 /min Weight 186.00 lb 03/10/2010 BP Systolic 110 mmHg BP Diastolic 70 mmHg Heart Rate 80 /min Body Temperature 99.1 F Weight 188.00 lb 01/25/2010 BP Systolic 100 mmHg BP Diastolic 58 mmHg Heart Rate 110 /min Height 66 inches 5'6" Weight 188.00 lb BMI (Body Mass Index) 30.3 kg/m2 06/20/2009 BP Systolic 110 mmHg BP Diastolic 72 mmHg Heart Rate 112 /min Height 66 inches 5'6" Weight 190.00 lb BMI (Body Mass Index) 30.7 kg/m2 04/25/2009 BP Systolic 98 mmHg BP Diastolic 60 mmHg Heart Rate 92 /min Weight 187.00 lb 03/18/2009 BP Systolic 114 mmHg BP Diastolic 82 mmHg Heart Rate 78 /min Body Temperature 98.4 F Weight 190.00 lb 02/25/2009 BP Systolic 120 mmHg BP Diastolic 70 mmHg Heart Rate 98 /min Body Temperature 97.9 F Respiratory Rate 16 /min Weight 191.00 lb 02/04/2009 BP Systolic 120 mmHg BP Diastolic 88 mmHg Heart Rate 84 /min Body Temperature 98.1 F Respiratory Rate 20 /min Height 66 inches 5'6" Weight 189.00 lb BMI (Body Mass Index) 30.5 kg/m2 Results Test Date Test Result H/L Range Note Laboratory test finding 04/24/2018 Point of Care Glucose 234 mg/dL High 70 -100 1 Laboratory test finding 04/24/2018 Point of Care Glucose 232 mg/dL High 70 -100 2 Laboratory test finding 04/24/2018 Point of Care Glucose 281 mg/dL High 70 -100 3 Laboratory test finding 04/24/2018 Point of Care Glucose 331 mg/dL High 70 -100 4 Laboratory test finding 12/23/2017 Hemoglobin A1c (Fma) 9.0 % High 4.1- 5.7 Comprehensive Metabolic 08/29/2017 Sodium 139 mEq/L 134-149 Prof Potassium 4.9 mEq/L 3.6-5.5 Chloride 104 mEq/L 94-112 Carbon Dioxide 27 mEq/L 21-32 Glucose 83 mg/dL 70-105 BUN 19 mg/dL 6-26 Creatinine 1.2 mg/dL 0.6-1.4 BUN/Creat Ratio 15.8 CALC 8.0-36.0 Calcium 9.2 mg/dL 8.6-10.2 Total Protein 6.4 g/dL 6.4-8.3 Albumin 4.0 g/dL 3.8-5.5 Globulin 2.4 g/dL 2.0-4.8 A/G Ratio 1.7 CALC 0.6-2.3 Alk. Phosphatase 57 U/L 22-95 Alt (SGPT) 13 U/L 7-35 Ast (Sgot) 12 U/L 5-34 Total Bilirubin 0.2 mg/dL 0.2-1.3 GFR Non- >60 ml/min/1.73m^ >=60 GFR >60 ml/min/1.73m^ >=60 Lipid Profile 08/29/2017 Cholesterol 179 mg/dL 120-200 Triglycerides 174 mg/dL 30-200 HDL Cholesterol 49 mg/dL 30-70 LDL (Calculated) 95 CALC 0-129 VLDL Cholesterol 35 mg/dL 0-50 HDL Risk Factor 3.7 CALC 0.0-4.4 Complete Blood Count 08/29/2017 WBC 8.1 x10^3/UL 3.6-9.6 RBC 4.69 x10^6/UL 3.90-5.70 HGB 13.8 g/dL 12.1-17.2 HCT 40 % 36-50 MCV 84.0 fL 82.2-97.4 MCH 29.4 pg 27.6-33.3 MCHC 34.8 g/dL 33.0-35.5 RDW 13.8 % High 11.6-13.7 PLT 206 x10^3/UL 150-400 MPV 7.8 fL 7.4-10.4 Gran # 6.3 x10^3/UL 1.5-7.2 Lymph# 1.4 x10^3/UL 0.7-4.9 Will# 0.4 x10^3/UL 0.1-0.9 Gran % 76.6 % High 42.2-75.2 Lymph % 18.1 % Low 20.5-51.1 Will% 5.3 % 1.7-9.3 Laboratory test finding 08/29/2017 TSH 1.98 mIU/L 0.50-6.00 Free T4 1.25 ng/dL 0.75-1.54 Laboratory test finding 08/29/2017 Hemoglobin A1c (Fma) 8.7 % High 4.1- 5.7 Laboratory test finding 06/19/2017 Hemoglobin A1c (Fma) 7.8 % High 4.1- 5.7 Laboratory test finding 04/16/2017 Hemoglobin A1c (Fma) 7.4 % High 4.1- 5.7 Comp Metabolic Panel 03/08/2017 Sodium 134 mmol/L 133-145 Potassium 5.2 mmol/L High 3.5-5.0 Chloride 103 mmol/L 101-111 Co2 Carbon Dioxide 24 mmol/L 22-32 Anion Gap 7 mmol/L 2-11 Glucose 134 mg/dL High 70-100 Blood Urea Nitrogen 26 mg/dL High 6-24 Creatinine 1.14 mg/dL 0.67-1.17 BUN/Creatinine Ratio 22.8 High 8-20 Calcium 9.2 mg/dL 8.6-10.3 Total Protein 6.4 g/dL 6.4-8.9 Albumin 3.6 g/dL 3.2-5.2 Globulin 2.8 g/dL 2-4 Albumin/Globulin Ratio 1.3 1-3 Total Bilirubin 0.30 mg/dL 0.2-1.0 Alkaline Phosphatase 49 U/L 34-104 Alt 14 U/L 7-52 Ast 13 U/L 13-39 Egfr Non- 64.9 >60 Egfr 83.4 >60 5 Laboratory test 03/08/2017 Hemoglobin A1c 8.5 % High Less than 6.0 6 finding (Glyco HGB) Laboratory test 03/08/2017 Stool For Blood SEE RESULT 7 finding BELOW Laboratory test 03/08/2017 Clotest SEE RESULT 8 finding BELOW Laboratory test 03/08/2017 Point of Care 154 mg/dL High 74-106 9 finding Glucose Inr/Protime 03/08/2017 Inr 0.88 Low 0.89-1.11 CBC Auto Diff 03/08/2017 White Blood Count 6.9 10^3/uL 3.5-10.8 Red Blood Count 4.32 10^6/uL 4.0-5.4 Hemoglobin 12.3 g/dL Low 14.0-18.0 Hematocrit 36 % Low 42-52 Mean Corpuscular Volume 84 fL 80-94 Mean Corpuscular Hemoglobin 28 pg 27-31 Mean Corpuscular HGB Conc 34 g/dL 31-36 Red Cell Distribution Width 14 % 10.5-15 Platelet Count 152 10^3/uL 150-450 Mean Platelet Volume 8 um3 7.4-10.4 Abs Neutrophils 4.9 10^3/uL 1.5-7.7 Abs Lymphocytes 1.1 10^3/uL 1.0-4.8 Abs Monocytes 0.8 10^3/uL 0-0.8 Abs Eosinophils 0.1 10^3/uL 0-0.6 Abs Basophils 0 10^3/uL 0-0.2 Abs Nucleated RBC 0.01 10^3/uL Granulocyte % 71.0 % 38-83 Lymphocyte % 16.0 % Low 25-47 Monocyte % 11.4 % High 1-9 Eosinophil % 0.9 % 0-6 Basophil % 0.7 % 0-2 Nucleated Red Blood Cells % 0.2 Laboratory test finding 03/08/2017 Surgical Interface SEE RESULT BELOW 10 Order Laboratory test finding 11/30/2016 C Difficile PCR SEE RESULT BELOW 11 Comprehensive Metabolic 11/27/2016 Sodium 132 mEq/L Low 134-149 Prof Potassium 6.3 mEq/L High 3.6-5.5 12 Chloride 100 mEq/L 94-112 Carbon Dioxide 25 mEq/L 21-32 Glucose 469 mg/dL High 70-105 13 BUN 18 mg/dL 6-26 Creatinine 1.1 mg/dL 0.6-1.4 BUN/Creat Ratio 16.4 CALC 8.0-36.0 Calcium 9.5 mg/dL 8.6-10.2 Total Protein 7.0 g/dL 6.4-8.3 Albumin 4.0 g/dL 3.8-5.5 Globulin 3.0 g/dL 2.0-4.8 A/G Ratio 1.3 CALC 0.6-2.3 Alk. Phosphatase 68 U/L 22-95 Alt (SGPT) 16 U/L 7-35 Ast (Sgot) 13 U/L 5-34 Total Bilirubin 0.4 mg/dL 0.2-1.3 GFR Non- >60 ml/min/1.73m^ >=60 GFR >60 ml/min/1.73m^ >=60 Laboratory test finding 11/27/2016 TSH 1.07 mIU/L 0.50-6.00 Free T4 1.21 ng/dL 0.75-1.54 Complete Blood Count 11/27/2016 WBC 7.2 x10^3/UL 3.6-9.6 RBC 4.76 x10^6/UL 3.90-5.70 HGB 13.9 g/dL 12.1-17.2 HCT 40 % 36-50 MCV 85.0 fL 82.2-97.4 MCH 29.3 pg 27.6-33.3 MCHC 34.5 g/dL 33.0-35.5 RDW 13.4 % 11.6-13.7 PLT 218 x10^3/UL 150-400 MPV 7.4 fL 7.4-10.4 Gran # 6.1 x10^3/UL 1.5-7.2 Lymph# 0.8 x10^3/UL 0.7-4.9 Will# 0.3 x10^3/UL 0.1-0.9 Gran % 84.0 % High 42.2-75.2 Lymph % 11.5 % Low 20.5-51.1 Will% 4.5 % 1.7-9.3 Laboratory test finding 11/27/2016 Hemoglobin A1c (Fma) 8.8 % High 4.1- 5.7 Laboratory test finding 07/25/2016 Hemoglobin A1c (Fma) 7.9 % High 4.1- 5.7 Laboratory test finding 05/31/2016 Point of Care Glucose 231 mg/dL High 74 -106 14 Laboratory test finding 05/31/2016 Inr/Protime 0.99 0.89-1.11 Partial Thrombo Time PTT 32.7 seconds 26.0-36.3 CBC Auto Diff 05/31/2016 White Blood Count 8.9 10^3/uL 3.5-10.8 Red Blood Count 4.22 10^6/uL 4.0-5.4 Hemoglobin 12.3 g/dL Low 14.0-18.0 Hematocrit 36 % Low 42-52 Mean Corpuscular Volume 85 fL 80-94 Mean Corpuscular Hemoglobin 29 pg 27-31 Mean Corpuscular HGB Conc 34 g/dL 31-36 Red Cell Distribution Width 13 % 10.5-15 Platelet Count 200 10^3/uL 150-450 Mean Platelet Volume 8 um3 7.4-10.4 Abs Neutrophils 6.2 10^3/uL 1.5-7.7 Abs Lymphocytes 1.3 10^3/uL 1.0-4.8 Abs Monocytes 0.9 10^3/uL High 0-0.8 Abs Eosinophils 0.4 10^3/uL 0-0.6 Abs Basophils 0.2 10^3/uL 0-0.2 Abs Nucleated RBC 0.04 10^3/uL Granulocyte % 68.9 % 38-83 Lymphocyte % 14.1 % Low 25-47 Monocyte % 9.9 % High 1-9 Eosinophil % 4.9 % 0-6 Basophil % 2.2 % High 0-2 Nucleated Red Blood Cells % 0.4 Laboratory test finding 05/31/2016 Troponin I 0.01 ng/mL <0.03 15 CKMB 05/31/2016 CKMB ng/mL 3.1 ng/mL 0.6-6.3 Comp Metabolic Panel 05/31/2016 Sodium 133 mmol/L 133-145 Chloride 103 mmol/L 101-111 Co2 Carbon Dioxide 23 mmol/L 22-32 Glucose 162 mg/dL High 70-100 Blood Urea Nitrogen 28 mg/dL High 6-24 Creatinine 1.20 mg/dL High 0.67-1.17 BUN/Creatinine Ratio 23.3 High 8-20 Calcium 9.6 mg/dL 8.6-10.3 Total Protein 7.4 g/dL 6.4-8.9 Albumin 3.9 g/dL 3.2-5.2 Globulin 3.5 g/dL 2-4 Albumin/Globulin Ratio 1.1 1-3 Total Bilirubin 0.40 mg/dL 0.2-1.0 Alkaline Phosphatase 60 U/L 34-104 Alt 15 U/L 7-52 Egfr Non- 61.3 >60 Egfr 78.9 >60 16 Potassium 5.2 mmol/L High 3.5-5.0 Anion Gap 7 mmol/L 2-11 Ast 17 U/L 13-39 Laboratory test finding 05/31/2016 Lipase 28 U/L 11.0-82.0 Creatine Kinase(CK) 74 U/L 10-223 C Reactive Protein 3.78 mg/L < 5.00 17 CBC Electronic (a) 05/03/2016 WBC 9.5 3.6-9.6 RBC 4.46 3.90-5.70 Hemoglobin (Fma/CMC/CTX) 13.2 g/dL 12.1 - 17.2 Hematocrit (Fma/CMC/CTX) 39.4 % 36.1 - 50.3 Platelets 222 10^3/ul 150-400 Lymph% 14.8 % Low 17.0-48.0 Mixed% 4.5 Neutrophils % 80.7 Mean Corpuscular Vol 88 82.2-97.4 Mean Corpuscular Hemoglobin 29.7 27.6-33.3 Mean Corpuscular Hemo Concen 33.6 32.0-36.0 RDW 13.0 11.6-13.7 Mean Platelet Volume 6.5 5.5-11.0 Lyme AB/Western Blot Reflex 05/03/2016 Lyme IgG/IgM Ab <0.91 ISR 0.00- 0.90 18, 19 Lyme Disease Ab, Quant, IgM <0.80 index 0.00-0.79 18, 20 Comprehensive Metabolic Prof 05/03/2016 Sodium 140 mEq/L 134-149 Potassium 5.3 mEq/L 3.6-5.5 Chloride 106 mEq/L 94-112 Carbon Dioxide 27 mEq/L 21-32 Glucose 104 mg/dL 70-105 BUN 15 mg/dL 6-26 Creatinine 1.1 mg/dL 0.6-1.4 BUN/Creat Ratio 13.6 CALC 8.0-36.0 Calcium 9.8 mg/dL 8.6-10.2 Total Protein 6.4 g/dL 6.4-8.3 Albumin 4.0 g/dL 3.8-5.5 Globulin 2.4 g/dL 2.0-4.8 A/G Ratio 1.7 CALC 0.6-2.3 Alk. Phosphatase 53 U/L 22-95 Alt (SGPT) 17 U/L 7-35 Ast (Sgot) 20 U/L 5-34 Total Bilirubin 0.3 mg/dL 0.2-1.3 GFR Non- >60 ml/min/1.73m^ >=60 GFR >60 ml/min/1.73m^ >=60 Laboratory test finding 04/19/2016 Lactic Acid 0.9 mmol/L 0.5-2.0 21 Laboratory test finding 04/14/2016 Hemoglobin A1c (Fma) 9.5 % High 4.1- 5.7 CBC Electronic (Fma) 04/14/2016 WBC 6.3 3.6-9.6 RBC 4.31 3.90-5.70 Hemoglobin (Fma/CMC/CTX) 12.8 g/dL 12.1 - 17.2 Hematocrit (Fma/CMC/CTX) 37.9 % 36.1 - 50.3 Platelets 200 10^3/ul 150-400 Lymph% 15.9 % Low 17.0-48.0 Mixed% 7.1 Neutrophils % 77.0 Mean Corpuscular Vol 88 82.2-97.4 Mean Corpuscular Hemoglobin 29.7 27.6-33.3 Mean Corpuscular Hemo Concen 33.7 32.0-36.0 RDW 13.2 11.6-13.7 Mean Platelet Volume 7.3 5.5-11.0 Comprehensive Metabolic Prof 04/14/2016 Sodium 136 mEq/L 134-149 Potassium 6.3 mEq/L High 3.6-5.5 22 Chloride 100 mEq/L 94-112 Carbon Dioxide 27 mEq/L 21-32 Glucose 571 mg/dL High 70-105 23 BUN 13 mg/dL 6-26 Creatinine 0.9 mg/dL 0.6-1.4 BUN/Creat Ratio 14.4 CALC 8.0-36.0 Calcium 9.2 mg/dL 8.6-10.2 Total Protein 6.8 g/dL 6.4-8.3 Albumin 4.0 g/dL 3.8-5.5 Globulin 2.8 g/dL 2.0-4.8 A/G Ratio 1.4 CALC 0.6-2.3 Alk. Phosphatase 65 U/L 22-95 Alt (SGPT) 14 U/L 7-35 Ast (Sgot) 15 U/L 5-34 Total Bilirubin 0.3 mg/dL 0.2-1.3 GFR Non- >60 ml/min/1.73m^ >=60 GFR >60 ml/min/1.73m^ >=60 Lipid Profile 04/14/2016 Cholesterol 189 mg/dL 120-200 Triglycerides 265 mg/dL High 30-200 HDL Cholesterol 46 mg/dL 30-70 LDL (Calculated) 90 CALC 0-129 VLDL Cholesterol 53 mg/dL High 0-50 HDL Risk Factor 4.1 CALC 0.0-4.4 Laboratory test finding 04/14/2016 TSH 1.57 mIU/L 0.50-6.00 Free T4 1.11 ng/dL 0.75-1.54 LDL, Direct 100 mg/dL 0-130 Laboratory test finding 01/09/2016 Inr/Protime 1.00 0.89-1.11 Partial Thrombo Time PTT 35.4 seconds 26.0-36.3 D Dimer Quantitative < 200 ng/mL Less Than 230 24 Lactic Acid 2.6 mmol/L High 0.5-2.0 25 B Type Natriuretic Peptide 34 pg/mL 26 Comp Metabolic Panel 01/09/2016 Sodium 133 mmol/L 133-145 Potassium 4.6 mmol/L 3.5-5.0 Chloride 101 mmol/L 101-111 Co2 Carbon Dioxide 24 mmol/L 22-32 Anion Gap 8 mmol/L 2-11 Glucose 175 mg/dL High 70-100 Blood Urea Nitrogen 20 mg/dL 6-24 Creatinine 1.30 mg/dL High 0.67-1.17 BUN/Creatinine Ratio 15.4 8-20 Calcium 9.8 mg/dL 8.6-10.3 Total Protein 6.7 g/dL 6.4-8.9 Albumin 3.8 g/dL 3.2-5.2 Globulin 2.9 g/dL 2-4 Albumin/Globulin Ratio 1.3 1-3 Total Bilirubin 0.30 mg/dL 0.2-1.0 Alkaline Phosphatase 55 U/L 34-104 Alt 15 U/L 7-52 Ast 14 U/L 13-39 Egfr Non- 55.9 >60 Egfr 71.9 >60 27 Laboratory test finding 01/09/2016 Magnesium 1.9 mg/dL 1.9-2.7 Lipase 34 U/L 11.0-82.0 Creatine Kinase 116 U/L 10-223 C Reactive Protein 6.20 mg/L High < 5.00 28 Troponin I 0.01 ng/mL <0.03 29 CKMB 01/09/2016 CKMB ng/mL 4.5 ng/mL 0.6-6.3 Laboratory test finding 01/09/2016 TSH (Thyroid Stim Horm) 0.99 ?IU/mL 0.34-5.60 CBC Auto Diff 01/09/2016 White Blood Count 8.9 10^3/uL 3.5-10.8 Red Blood Count 4.82 10^6/uL 4.0-5.4 Hemoglobin 13.4 g/dL Low 14.0-18.0 Hematocrit 39 % Low 42-52 Mean Corpuscular Volume 82 fL 80-94 Mean Corpuscular Hemoglobin 28 pg 27-31 Mean Corpuscular HGB Conc 34 g/dL 31-36 Red Cell Distribution Width 14 % 10.5-15 Platelet Count 190 10^3/uL 150-450 Mean Platelet Volume 8 um3 7.4-10.4 Abs Neutrophils 7.0 10^3/uL 1.5-7.7 Abs Lymphocytes 0.8 10^3/uL Low 1.0-4.8 Abs Monocytes 0.8 10^3/uL 0-0.8 Abs Eosinophils 0.1 10^3/uL 0-0.6 Abs Basophils 0.1 10^3/uL 0-0.2 Abs Nucleated RBC 0.01 10^3/uL Granulocyte % 78.8 % 38-83 Lymphocyte % 9.4 % Low 25-47 Monocyte % 9.3 % High 1-9 Eosinophil % 1.6 % 0-6 Basophil % 0.9 % 0-2 Nucleated Red Blood Cells % 0.1 Comp Metabolic Panel 10/31/2015 Sodium 134 mmol/L [...] Egfr Non- 79.4 >60 Egfr 102.1 >60 30 Laboratory test finding 10/31/2015 C Reactive Protein 9.73 mg/L High < 5.00 31 CBC Auto Diff 10/31/2015 White Blood Count [...] Red Blood Cells % 0.1 Laboratory test 10/31/2015 Erythrocyte Sed Rate 95 mm/Hr High 0-20 finding Laboratory test 10/13/2015 Point of Care Glucose 150 mg/dL High 74-106 32 finding Laboratory test 10/13/2015 Wound Culture/Sensi SEE RESULT BELOW 33 finding Tissue (BX) Culture & Gram St SEE RESULT BELOW 34 MRSA/S. aureus Ssti PCR SEE RESULT BELOW 35 Anaerobic Culture SEE RESULT BELOW 36 Mycobacterial Culture See Comment 37 Laboratory test finding 10/13/2015 Point of Care 281 mg/dL High 74-106 38 Glucose Laboratory test finding 10/13/2015 Troponin I 0.01 ng/mL <0.03 39 Body Fluid Cell Count 10/13/2015 Body Fluid Source Synovial Fluid 40 Body Fluid Appearance Bloody 40 Body Fluid Color (SEE NOTE) 40, 41 Body Fluid Volume 1.5 mL 40 Body Fluid WBC 13189 40 Body Fluid [place] [address] 40 Body Fluid Neutrophils 94 40 Body Fluid Other Cells 6 40 Body Fluid Total Cells Counted 100 40 Body Fluid Comment (SEE NOTE) 40, 42 Fluid Reviewed By MD (SEE NOTE) 40, 43 Laboratory test finding 10/13/2015 Troponin I 0.02 ng/mL <0.03 44 Hemoglobin A1c (Glyco HGB) 7.4 % High Less than 6.0 45 Blood Culture SEE RESULT BELOW 46 Laboratory test finding 10/13/2015 Body Fluid Culture SEE RESULT BELOW 47 (Bottles) Body Fluid Cell Count 10/13/2015 Body Fluid Source Synovial Fluid Body Fluid Appearance Cloudy Body Fluid Color [place] Body Fluid Volume 10 mL Body Fluid WBC TNP Body Fluid RBC TNP Body Fluid Neutrophils 93 Body Fluid Band 1 Body Fluid Lymph 5 Body Fluid Will 1 Body Fluid Total Cells Counted 100 Fluid Reviewed By MD (SEE NOTE) 48 Body Fluid Total Protein 10/13/2015 Total Protein, BF 1.4 g/dL 49 Fluid Source SYNOVIAL FLUID 50 Body Fluid Glucose 10/13/2015 Glucose, BF 323 mg/dL 51 Fluid Source SYNOVIAL 52 Comp Metabolic Panel 10/13/2015 Sodium 134 mmol/L 133-145 Potassium 4.7 mmol/L 3.5-5.0 Chloride 97 mmol/L Low 101-111 Co2 Carbon Dioxide 28 mmol/L 22-32 Anion Gap 9 mmol/L 2-11 Glucose 362 mg/dL High 70-100 Blood Urea Nitrogen 17 mg/dL 6-24 Creatinine 1.06 mg/dL 0.67-1.17 BUN/Creatinine Ratio 16.0 8-20 Calcium 9.9 mg/dL 8.6-10.3 Total Protein 7.2 g/dL 6.4-8.9 Albumin 3.9 g/dL 3.2-5.2 Globulin 3.3 g/dL 2-4 Albumin/Globulin Ratio 1.2 1-3 Total Bilirubin 0.30 mg/dL 0.2-1.0 Alkaline Phosphatase 112 U/L High 34-104 Alt 16 U/L 7-52 Ast 13 U/L 13-39 Egfr Non- 70.8 >60 Egfr 91.0 >60 53 Laboratory test finding 10/13/2015 C Reactive Protein 16.59 mg/L High < 5.00 54 CBC Auto Diff 10/13/2015 White Blood Count 15.3 10^3/uL High 3.5-10.8 Red Blood Count 4.75 10^6/uL 4.0-5.4 Hemoglobin 13.3 g/dL Low 14.0-18.0 Hematocrit 40 % Low 42-52 Mean Corpuscular Volume 84 fL 80-94 Mean Corpuscular Hemoglobin 28 pg 27-31 Mean Corpuscular HGB Conc 33 g/dL 31-36 Red Cell Distribution Width 14 % 10.5-15 Platelet Count 258 10^3/uL 150-450 Mean Platelet Volume 7 um3 Low 7.4-10.4 Abs Neutrophils 13.1 10^3/uL High 1.5-7.7 Abs Lymphocytes 0.6 10^3/uL Low 1.0-4.8 Abs Monocytes 1.3 10^3/uL High 0-0.8 Abs Eosinophils 0.2 10^3/uL 0-0.6 Abs Basophils 0.1 10^3/uL 0-0.2 Abs Nucleated RBC 0 10^3/uL Granulocyte % 85.9 % High 38-83 Lymphocyte % 3.9 % Low 25-47 Monocyte % 8.4 % 1-9 Eosinophil % 1.4 % 0-6 Basophil % 0.4 % 0-2 Nucleated Red Blood Cells % 0 Laboratory test finding 10/13/2015 Erythrocyte Sed Rate 86 mm/Hr High 0- 20 Wound Culture/Sensi SEE RESULT BELOW 55 Inr/Protime 10/13/2015 Inr 1.01 0.89-1.11 Type & Screen 10/13/2015 Patient Blood Type A Positive Antibody Screen NEGATIVE Laboratory test finding 09/08/2015 Hemoglobin A1c 8.4 % High 4.1-5.7 (Fma/CMC,CX) Comprehensive Metabolic 05/11/2015 Sodium 138 mEq/L 134-149 Prof Potassium 5.1 mEq/L 3.6-5.5 Chloride 104 mEq/L 94-112 Carbon Dioxide 27 mEq/L 21-32 Glucose 352 mg/dL High 70-105 56 BUN 13 mg/dL 6-26 Creatinine 0.9 mg/dL 0.6-1.4 BUN/Creat Ratio 14.4 CALC 8.0-36.0 Calcium 9.6 mg/dL 8.6-10.2 Total Protein 6.8 g/dL 6.4-8.3 Albumin 3.8 g/dL 3.8-5.5 Globulin 3.0 g/dL 2.0-4.8 A/G Ratio 1.3 CALC 0.6-2.3 Alk. Phosphatase 56 U/L 22-95 Alt (SGPT) 13 U/L 7-35 Ast (Sgot) 11 U/L 5-34 Total Bilirubin 0.3 mg/dL 0.2-1.3 GFR Non- >60 ml/min/1.73m^ >=60 GFR >60 ml/min/1.73m^ >=60 Laboratory test finding 05/11/2015 TSH 0.98 mIU/L 0.50-6.00 Lipid Profile 05/11/2015 Cholesterol 210 mg/dL High 120-200 Triglycerides 198 mg/dL 30-200 HDL Cholesterol 45 mg/dL 30-70 LDL (Calculated) 125 CALC 0-129 VLDL Cholesterol 40 mg/dL 0-50 HDL Risk Factor 4.7 CALC High 0.0-4.4 Complete Blood Count 05/11/2015 WBC 8.0 x10^3/UL 3.6-9.6 RBC 4.71 x10^6/UL 3.90-5.70 HGB 13.6 g/dL 12.1-17.2 HCT 40 % 36-50 MCV 84.0 fL 82.2-97.4 MCH 28.9 pg 27.6-33.3 MCHC 34.5 g/dL 33.0-35.5 RDW 13.6 % 11.6-13.7 PLT 164 x10^3/UL 150-400 MPV 7.2 fL Low 7.4-10.4 Gran # 6.7 x10^3/UL 1.5-7.2 Lymph# 0.9 x10^3/UL 0.7-4.9 Will# 0.4 x10^3/UL 0.1-0.9 Gran % 82.3 % High 42.2-75.2 Lymph % 11.9 % Low 20.5-51.1 Will% 5.8 % 1.7-9.3 Laboratory test finding 05/11/2015 Hemoglobin A1c (Fma/CMC,CX) 9.0% % High 4.1-5.7 Ua - Micro (a) 05/11/2015 Appearance clear Color yellow Glucose, Urine (Fma/CMC/CTX) >=1000 High hx:dm Bilirubin neg Ketones neg SP Grav 1.025 Blood trace-lysed PH 7.0 Protein ssa=3+ Urobil 2.0 Nitrite neg Leukocytes (Fma/CMC/[facility]) neg Hyaline - /Lpf Granular - /Lpf WBC (Fma,[facility]) - RBC 2-3 Mucus (Fma/CBC/[facility]) sm amt /Lpf Epith rare /Lpf Bacteria - /Hpf Amorphous (Fma/CMC/[facility]) - /Lpf Crystals, Fluid (Fma/CMC/CTX) - Laboratory test finding 01/11/2015 Hemoglobin A1c ([facility]ma/CMC,CX) 9.2 % High 4.1-5.7 Ua - Micro (Fma) 01/11/2015 Appearance clear Color yellow Glucose, Urine (Fma/CMC/CTX) >=1000 Bilirubin - Ketones - SP Grav >=1.030 Blood small PH 5.5 Protein ssa +3 Urobil 0.2 Nitrite - Leukocytes (Fma/CMC/[facility]) - Hyaline - /Lpf Granular - /Lpf WBC (Fma,[facility]) 4-6 RBC 0-1 Mucus mod amt /Lpf Epith - /Lpf Bacteria trace /Hpf Amorphous - /Lpf Crystals, Fluid (Fma/CMC/CTX) - Laboratory test 01/11/2015 Microalb, Random >300.0 mg/L mg/L High 0.5-37 finding (Fma/CMC/CTX) CBC Electronic (a) 01/11/2015 WBC 7.6 3.6-9.6 RBC 5.10 3.90-5.70 Hemoglobin (Fma/CMC/CTX) 14.4 g/dL 12.1 - 17.2 Hematocrit (Fma/CMC/CTX) 42.9 % 36.1 - 50.3 Platelets 202 10^3/ul 150-400 Lymph% 17.1 % 17.0-48.0 Mixed% 5.9 Neutrophils % 77.0 Mean Corpuscular Vol 84 82.2-97.4 Mean Corpuscular Hemoglobin 28.3 27.6-33.3 Mean Corpuscular Hemo Concen 33.6 32.0-36.0 RDW 13.2 11.6-13.7 Mean Platelet Volume 6.8 5.5-11.0 Comprehensive Metabolic Prof 01/11/2015 Sodium 142 mEq/L 134-149 Potassium 4.4 mEq/L 3.6-5.5 Chloride 97 mEq/L 94-112 Carbon Dioxide 28 mEq/L 21-32 Glucose 155 mg/dL High 70-105 57 BUN 19 mg/dL 6-26 Creatinine 0.8 mg/dL 0.6-1.4 BUN/Creat Ratio 23.8 CALC 8.0-36.0 Calcium 9.2 mg/dL 8.6-10.2 Total Protein 7.1 g/dL 6.4-8.3 Albumin 3.9 g/dL 3.8-5.5 Globulin 3.2 g/dL 2.0-4.8 A/G Ratio 1.2 CALC 0.6-2.3 Alk. Phosphatase 68 U/L 22-95 Alt (SGPT) 18 U/L 7-35 Ast (Sgot) 15 U/L 5-34 Total Bilirubin 0.4 mg/dL 0.2-1.3 Laboratory test finding 01/11/2015 TSH 1.56 mIU/L 0.50-6.00 Lipid Profile 01/11/2015 Cholesterol 273 mg/dL High 120-200 Triglycerides 274 mg/dL High 30-200 HDL Cholesterol 42 mg/dL 30-70 LDL (Calculated) 176 CALC High 0-129 58 VLDL Cholesterol 55 mg/dL High 0-50 HDL Risk Factor 6.5 CALC High 0.0-4.4 Laboratory test finding 01/11/2015 LDL, Direct 170 mg/dL High 0-130 Comprehensive Metabolic Prof 10/05/2014 Sodium 135 mEq/L 134-149 Potassium 5.0 mEq/L 3.6-5.5 Chloride 95 mEq/L 94-112 Carbon Dioxide 28 mEq/L 21-32 Glucose 361 mg/dL High 70-105 59 BUN 16 mg/dL 6-26 Creatinine 0.8 mg/dL 0.6-1.4 BUN/Creat Ratio 20.0 CALC 8.0-36.0 Calcium 9.9 mg/dL 8.6-10.2 Total Protein 7.3 g/dL 6.4-8.3 Albumin 3.8 g/dL 3.8-5.5 Globulin 3.5 g/dL 2.0-4.8 A/G Ratio 1.1 CALC 0.6-2.3 Alk. Phosphatase 68 U/L 22-95 Alt (SGPT) 23 U/L 7-35 Ast (Sgot) 19 U/L 5-34 Total Bilirubin 0.4 mg/dL 0.2-1.3 Complete Blood Count 10/05/2014 WBC 8.8 x10^3/UL 3.6-9.6 RBC 5.40 x10^6/UL 3.90-5.70 HGB 15.4 g/dL 12.1-17.2 HCT 46 % 36-50 MCV 85.0 fL 82.2-97.4 MCH 28.6 pg 27.6-33.3 MCHC 33.5 g/dL 33.0-35.5 RDW 11.7 % 11.6-13.7 PLT 167 x10^3/UL 150-400 MPV 7.8 fL 7.4-10.4 Gran # 7.4 x10^3/UL High 1.5-7.2 Lymph# 1.1 x10^3/UL 0.7-4.9 Will# 0.3 x10^3/UL 0.1-0.9 Gran % 82.0 % High 42.2-75.2 Lymph % 13.5 % Low 20.5-51.1 Will% 4.5 % 1.7-9.3 Laboratory test finding 10/05/2014 Hemoglobin A1c (Fma/CMC,CX) 12.4 % High 4.1-5.7 Sed Rate (a[place] [place] 38 mm Laboratory test finding 07/21/2013 Hemoglobin A1c 9.7% % High 4.1-5.7 (a/CMC,CX) Comprehensive Metabolic 06/16/2013 Albumin 4.4 g/dL 3.8-5.5 Prof Alk. Phos. 64 U/L 22-95 Alt (SGPT) 20 U/L 10-40 Ast (Sgot) 17 U/L 5-34 BUN 12 mg/dL 6-26 Calcium 9.5 mg/dL 8.6-10.2 Chloride 105 mEq/L 94-112 Creatinine 0.9 mg/dL 0.6-1.4 Carbon Dioxide 27 mEq/L 21-32 Glucose 118 mg/dL High 70-105 60 Sodium 135 mEq/L 134-149 Total Bilirubin 0.4 mg/dL 0.2-1.3 Total Protein 7.3 g/dL 6.3-8.1 Potassium 4.6 mEq/L 3.6-5.5 Globulin 2.8 g/dL 2.0-4.8 A/G Ratio 1.6 Calc 0.6-2.3 BUN/Creat Ratio 13.3 Calc 8.0-36.0 Lipid Profile 06/16/2013 Cholesterol 284 mg/dL High 120-200 HDL 46 mg/dL 30-70 Triglycerides 302 mg/dL High 30-200 HDL Risk Factor 6.2 CALC High 0.0-4.4 LDL (Calculated) 178 CALC High 0-129 VLDL (Calculated) 60 mg/dL High 0-50 Laboratory test finding 06/16/2013 LDL (Direct) 185 mg/dL High 0-130 CBC Electronic ([facility]) 06/16/2013 WBC 8.4 3.6-9.6 RBC 5.19 3.90-5.70 Hemoglobin (Fma/CMC/CTX) 14.9 g/dL 12.1 - 17.2 Hematocrit (a/[facility] [place] 44.5 % 36.1 - 50.3 Platelets 173 10^3/ul 150-400 Lymph% 19.1 Low 20.5-51.1 Mixed% 5.9 Neutrophils % 75.0 Mean Corpuscular Vol 86 82.2-97.4 Mean Corpuscular Hemoglobin 28.6 27.6-33.3 Mean Corpuscular Hemo Concen 33.4 32.0-36.0 RDW 12.0 11.6-13.7 Mean Platelet Volume 7.2 6.5-11.0 Urinalysis 03/12/2013 Urine Color Yellow Urine Appearance Clear Urine Specific [place] (SEE NOTE) 1.010-1.030 61 Urine Esterase Negative Negative Urine Nitrate Negative Negative Urine Urobilinogen Negative E.U./dL Negative Urine Protein Trace mg/dL Negative Urine pH 5.0 5-9 Urine Blood Trace Negative Urine Ketones Negative mg/dL Negative Urine Bilirubin Negative Negative Urine Glucose 3+ mg/dL Negative Urine Microscopic 03/12/2013 Urine WBC None Seen None Seen Urine RBC 1+ (<3 /hpf) None Seen Urine Epithelial Cells 1+ Squamous /hpf None Seen CBC Auto Diff 03/12/2013 White Blood Count 11.4 10^3/uL High 4.8-10.8 Red Blood Count 4.51 10^6/uL 4.0-5.4 Hemoglobin 12.9 g/dL Low 14.0-18.0 Hematocrit 38 % Low 42-52 Mean Corpuscular Volume 84 fL 80-94 Mean Corpuscular Hemoglobin 29 pg 27-31 Mean Corpuscular HGB Conc 34 g/dL 31-36 Red Cell Distribution Width 14 % 10.5-15 Platelet Count 145 10^3/uL Low 150-450 Mean Platelet Volume 8 um3 7.4-10.4 Abs Neutrophils 9.3 10^3/uL High 1.5-7.7 Abs Lymphocytes 0.9 10^3/uL Low 1.0-4.8 Abs Monocytes 1.0 10^3/uL High 0-0.8 Abs Eosinophils 0.2 10^3/uL 0-0.6 Abs Basophils 0.1 10^3/uL 0-0.2 Abs Nucleated RBC 0.01 10^3/uL Granulocyte % 81.0 % 38-83 Lymphocyte % 8.2 % Low 25-47 Monocyte % 8.4 % 1-9 Eosinophil % 1.9 % 0-6 Basophil % 0.5 % 0-2 Nucleated Red Blood Cells % 0.1 Inr/Protime 03/12/2013 Inr 0.86 Low 0.87-0.97 Comp Metabolic Panel 03/12/2013 Sodium 134 mmol/L 133-145 Potassium 4.0 mmol/L 3.5-5.0 Chloride 101 mmol/L 101-111 Co2 Carbon Dioxide 25.0 mmol/L 22-32 Anion Gap 8.0 mmol/L 2-11 Glucose 187 mg/dL High 70-100 Blood Urea Nitrogen 14 mg/dL 6-24 Creatinine 0.70 mg/dL 0.50-1.40 BUN/Creatinine Ratio 20.0 8-20 Calcium 8.7 mg/dL 8.1-9.9 Total Protein 5.9 g/dL Low 6.2-8.1 Albumin 3.5 g/dL Low 3.6-5.4 Globulin 2.4 g/dL 2-4 Albumin/Globulin Ratio 1.5 1-3 Total Bilirubin 0.5 mg/dL 0.4-1.5 Alkaline Phosphatase 51 U/L 30-110 Alt 18 U/L 14-54 Ast 19 U/L 12-42 Egfr Non- 115.4 >60 Egfr 148.4 >60 62 Laboratory test finding 03/12/2013 Creatine Kinase 67 U/L 0-200 Troponin I 0.04 ng/mL 0-0.06 63 Alcohol < 10 mg/dL Less Than 10 64 B Type Natriuretic Peptide 27.0 pg/mL 0-100 Laboratory test finding 03/10/2013 Hemoglobin A1c 8.9 % High 4.1-5.7 (Fma/CMC,CX) Laboratory test finding 12/02/2012 Glucose, Serum 192 mg/dL High 70-105 (Fma/CMC/CTX) Hemoglobin A1c (Fma/CMC,CX) 9.2 % High 4.1-5.7 Laboratory test 11/18/2012 Glucose, Serum 96 mg/dL 70-105 finding (Fma/CMC/CTX) Surgical Pathology 11/11/2012 S RUN DATE: 65 11/12/ <SEE NOTE> Laboratory test 11/04/2012 Glucose, Serum 397 mg/dL High 70-105 finding (Fma/CMC/CTX) Laboratory test 10/02/2012 Glucose, Serum 236 mg/dL High 70-105 finding (Fma/CMC/CTX) Comprehensive 09/02/2012 Albumin 4.6 g/dL 3.8-5.5 Metabolic Prof Alk. Phos. 73 U/L 22-95 Alt (SGPT) 15 U/L 10-40 Ast (Sgot) 14 U/L 5-34 BUN 12 mg/dL 6-26 Calcium 9.1 mg/dL 8.6-10.2 Chloride 99 mEq/L 94-112 Creatinine 0.8 mg/dL 0.6-1.4 Carbon Dioxide 26 mEq/L 21-32 Glucose 429 mg/dL High 70-105 66 Sodium 134 mEq/L 134-149 Total Bilirubin 0.5 mg/dL 0.2-1.3 Total Protein 7.6 g/dL 6.3-8.1 Potassium 5.0 mEq/L 3.6-5.5 Globulin 3.0 g/dL 2.0-4.8 A/G Ratio 1.5 Calc 0.6-2.2 BUN/Creat Ratio 13.9 Calc 8.0-36.0 Laboratory test finding 09/02/2012 Hemoglobin A1c 14.0 % High 4.1-5.7 ([facility] [place] Basic Metabolic Profile 05/02/2012 BUN 13 mg/dL 6-26 Calcium 8.6 mg/dL 8.6-10.2 Chloride 91 mEq/L Low 94-112 67 Creatinine 0.9 mg/dL 0.6-1.4 Carbon Dioxide 25 mEq/L 21-32 Glucose 450 mg/dL High 70-105 68 Sodium 132 mEq/L Low 134-149 69 Potassium 4.3 mEq/L 3.6-5.5 BUN/Creat Ratio 15.7 Calc 8.0-36.0 Laboratory test finding 05/02/2012 Hemoglobin A1c ([facility] [place]CX[place] 12.5 % High 4.1-5.7 Laboratory test finding 05/07/2011 Hemoglobin A1c ([facility] [place]CX[place] 9.6 % High 4.1-5.7 Laboratory test finding 01/12/2011 Hemoglobin A1c ([facility] [place] 10.8 % High 4.1-5.7 CBC Electronic ([facility]) 01/12/2011 WBC 8.4 3.6-9.6 RBC 5.56 3.90-5.70 Hemoglobin ([facility] [place]CTX) 16.3 g/dL 12.1 - 17.2 Hematocrit ([facility] [place]CTX) 48.3 % 36.1 - 50.3 Platelets 185 10^3/ul 150-400 Lymph% 13.6 Low 20.5-51.1 Mixed% 4.0 Neutrophils % 82.4 Mean Corpuscular Vol 87 82.2-97.4 Mean Corpuscular Hemoglobin 29.4 27.6-33.3 Mean Corpuscular Hemo Concen 33.8 32.0-36.0 RDW 11.3 Low 11.6-13.7 Mean Platelet Volume 8.1 6.5-11.0 Laboratory test finding 01/12/2011 TSH 1.63 mIU/L 0.50-6.00 Laboratory test finding 01/12/2011 Testosterone, Serum 406 ng/dL 193-740 CBC With Electronic Diff 06/07/2010 White Blood Count 6.7 CUMM 4.8-10.8 Red Cell Count 5.01 CUMM 4.6-6.2 Hemoglobin 17.2 g/dL 14.0-18.0 Hematocrit 48 % 42-52 Mean Corpuscular Volume 96 um3 High 80-94 Mean Corpuscular Hemoglob 34 pg High 27-31 Mean Corpuscular HGB Cone 36 g/dL 32-36 Redcell Distribution WDTH 12 % 10.5-15 Platelet Count 151 CUMM 150-450 Mean Platelet Volume 6.3 um3 Low 7.4-10.4 Gran % 67.5 % 38-83 Lymph % 17.8 % Low 25-47 Mononuclear % 11.7 % High 1-9 Eosinophil % 2.5 % 0-6 Basophil % 0.5 % 0-2 Abs Lymphs 1.2 1.0-4.8 Abs Mononuclear 0.8 0-0.8 Absolute Neutrophil Count 4.5 1.5-7.7 Abs Eosinophils 0.2 0-0.6 Abs Basophils 0 0-0.2 70 Laboratory test finding 06/07/2010 Alcohol < 10.0 mg/dL None Detected 71 TSH 1.67 MIU/ML 0.34-5.60 Comp Metabolic Panel 06/07/2010 Sodium 137 mmol/L 135-145 Potassium 4.5 mmol/L 3.5-5.0 Chloride 99 mmol/L Low 101-111 Co2 (Carbon Dioxide) 24.0 mmol/L 22-32 Anion Gap 14.0 mmol/L High 2-11 72 Glucose 183 mg/dL High 70-100 73 BUN 4 mg/dL Low 6-24 Creatinine 0.70 mg/dL 0.50-1.40 One Over Creatinine 1.40 BUN/Creatinine Ratio 5.7 Low 8-20 Calcium 9.8 mg/dL 8.1-9.9 Total Protein 8.0 GM/DL 6.2-8.1 Albumin 4.2 GM/DL 3.6-5.4 Globulin 3.8 GM/DL 2-4 Albumin/Globulin Ratio 1.1 1-3 Bilirubin Total 1.1 mg/dL 0.4-1.5 74 Alkaline Phosphatase 48 U/L 39-117 Alt (SGPT) 53 U/L 17-63 Ast (Sgot) 74 U/L High 12-42 eGFR Non- 124.0 > 60 eGFR 150.0 > 60 75 Laboratory test 01/25/2010 Hemoglobin A1c 7.3 % High 4.1-5.7 finding (a[place] [place] Laboratory test 02/04/2009 Hemoglobin A1c 7.8 % High 4.1-5.7 finding (a/[facility] [place] Laboratory test 02/04/2009 TSH 1.79 mIU/L 0.50-6.00 76 finding Complete Blood Count 02/04/2009 WBC 5.2 x10^3/uL 3.6-9.6 76 Gran# 3.5 x10^3/uL 1.5-7.2 76 Gran% 67.5 % 42.2-75.2 76 HCT 49 % 36-50 76 HGB 17.4 g/dL High 12.1-17.2 76 Lymph# 1.3 x10^3/uL 0.7-4.9 76 Lymph% 25.0 % 20.5-51.1 76 MCH 33.2 pg 27.6-33.3 76 MCV 94.2 fL 82.2-97.4 76 MCHC 35.3 g/dL 33.0-35.5 76 Mo# 0.4 x10^3/uL 0.1-0.9 76 Mo% 7.5 % 1.7-9.3 76 MPV 7.8 fL 7.4-10.4 76 PLT 132 x10^3/uL Low 150-400 76, 77 RBC 5.22 x10^6/uL 3.90-5.70 76 RDW 11.7 % 11.6-13.7 76 Lipid Profile 02/04/2009 Cholesterol 227 mg/dL High 120-200 76 HDL 59 mg/dL 30-70 76 Triglycerides 241 mg/dL High 30-200 76 HDL Risk Factor 3.9 CALC Low 4.2-7.0 76 LDL (Calculated) 120 CALC 0-129 76 VLDL (Calculated) 48 mg/dL 0-50 76 [facility] Metabolic [facility] 02/04/2009 Albumin 4.2 g/dL 3.8-5.5 76 Alk. Phos. 55 U/L 22-95 76 Alt (SGPT) 55 U/L High 10-40 76 Ast (Sgot) 46 U/L High 5-34 76 BUN 10 mg/dL 6-26 76 Calcium 9.7 mg/dL 8.6-10.2 76 Chloride 100 mEq/L 94-112 76 Creatinine 0.8 mg/dL 0.6-1.4 76 Carbon Dioxide 32 mEq/L 21-32 76 Glucose 283 mg/dL High 70-105 76, 78 Sodium 137 mEq/L 134-149 76 Total Bilirubin 0.6 mg/dL 0.2-1.3 76 Total Protein 7.1 g/dL 6.3-8.1 76 Potassium 5.3 mEq/L 3.6-5.5 76 Globulin 3.0 g/dL 2.0-4.8 76 A/G Ratio 1.4 Calc 0.6-2.2 76 BUN/Creat Ratio 12.7 Calc 8.0-36.0 76 1 Harbour Master: [id number] Harbour Master: [id number] Harbour Master: [id number] Harbour Master: [id number] 5 Because ethnic data is not always readily [...] 15-29 5 Kidney failure <15 (or dialysis) 6 Therapeutic target for the treatment of diabetes Mellitus patients is <7% HBA1C, and in selective patients <6.0%.Please refer to [place] [employer] Diabetic care guidelines for further information. 7 SEE RESULT BELOW Name: PRICE GUARDADO Arcenio : [address]: Raul Farris MD Acct: [id number] Unit: [id number] AGE: 61 Location: ENDO Re03/08/17 SEX: M Status: REG REF SPEC: [id number] GABO: 03/08/17-1159 [facility] DR: Raul Farris MD REQ: [id number] RECD: 03/08/17-1225 STATUS: DOLORES CARLOS DR: Gabbie Botello MD _ SOURCE: STOOL SPDESC: ORDERED: Occult Bl, Diag Procedure Result Reported Site Stool Occult Blood (1) Final 03/08/17- 1249 ML Stool Occult Blood Negative Collection Date (1) 03/08/17 * ML - [facility] ([facility]) . END OF REPORT * ML=Testing performed at Main Lab DEPARTMENT OF PATHOLOGY, [address] [place] [address] Vinayak Yanez M.D. Director [facility] # [id number] SEE RESULT BELOW Name: PRICE GUARDADO : [address]: Raul Farris MD Acct: [id number] Unit: [id number] AGE: 61 Location: ENDO Re03/08/17 SEX: M Status: REG REF SPEC: [id number] GABO: 03/08/17-1142 [facility] DR: Raul Farris MD REQ: [id number] RECD: 03/08/176 STATUS: DOLORES CARLOS DR: Gabbie Botello MD _ SOURCE: RASHAD TRAVIS [facility]: ORDERED: Clotest Procedure Result Reported Site Clotest Final 03/09/17- 49 ML Clotest Negative * ML - MAIN LAB ([facility]) . END OF REPORT * ML=Testing performed at Main Lab DEPARTMENT OF PATHOLOGY, [address] [place] [address] Vinayak Yanez M.D. Director [facility] # [id number] Harbour Master: [id number] SEE RESULT BELOW Name: PRICE GUARDADO : [address]: Raul Farris MD Acct: [id number] Unit: [id number] AGE: 61 Location: ENDO Re03/08/17 SEX: M Status: DEP REF SPEC: [id number] GABO: 03/08/17-1427 [facility] DR: Raul Farris MD REQ: [id number] RECD: 03/08/17 STATUS: DARIANA CARLOS DR: Gabbie oBtello MD _ ORDERED: LEVEL 4/3 FINAL DIAGNOSIS 1. Small bowel, third portion of duodenum, biopsy: -- Small bowel mucosa with normal villous architecture and no significant pathologic abnormality. 2. Stomach, biopsies: --Gastric fundic type mucosa with mild diffuse chronic inflammation. -- No active gastritis nor Helicobacter pylori-like organisms are identified. 3. Esophagus, 26 cm, biopsy: -- Squamous mucosa with mild reflux esophagitis with reactive epithelial changes. -- No glandular component identified. CLINICAL HISTORY 2-3 times per week in AM dry heaves for 5-10 minutes; black stool 3 days ago PRE-OPERATIVE DIAGNOSIS 2) Gastroparesis versus amyloid POST-OPERATIVE DIAGNOSIS Larynx - symmetric; esophagus- normal; esophagogastric 39; stomach - bezoar in fundus - medium, and scattered debris GROSS DESCRIPTION 1. The specimen is received in formalin labeled, Biopsy Third Portion Duodenum, and consists of two chavez-pink irregular to polypoid soft tissue fragments measuring 0.6 x 0.3 x 0.1 cm and 0.9 x 0.3 x 0.1 cm which are entirely submitted in one cassette. 2. The specimen is received in formalin labeled, Gastric Biopsies, Gastroparesis Versus CONTINUED ON NEXT PAGE * ML=Testing performed at Main Lab DEPARTMENT OF PATHOLOGY, 78 [place] [address] Vinayak Yanez M.D. Director [facility] # [id number] RUN DATE: 03/11/17 [facility] LAB LIVE PAGE 2 Patient: DEBBYPRICE [id number] (Continued) GROSS DESCRIPTION (Continued) GROSS DESCRIPTION (Continued) Amyloid, and consists of three speckled chavez-white irregular to polypoid soft tissue fragments ranging from 0.2 x 0.2 x 0.2 cm to 0.5 x 0.3 x 0.2 cm which are entirely submitted in one cassette. 3. The specimen is received in formalin labeled, Biopsy Esophageal Nodule at 26 cm, and consists of a 0.6 x 0.4 by up to 0.2 cm aggregate of white-pink irregular to polypoid soft tissue fragments which is entirely submitted in one cassette. Signed (signature on file) Vinayak Yanez MD 1408 END OF REPORT * ML=Testing performed at Main Lab DEPARTMENT OF PATHOLOGY, [address] [place] [address] Vinayak Yanez M.D. Director [facility] # [id number] 11 SEE RESULT BELOW Name: PRICE GUARDADO : [address]: Gabbie Botello MD Acct: [id number] Unit: [id number] AGE: 61 Location: [facility] Re11/30/16 SEX: M Status: REG REF SPEC: [id number] GABO: 11/30/16 [facility] DR: Gabbie Botello MD REQ: [id number] RECD: 11/30/16-1024 STATUS: DOLORES CARLOS DR: Rosalva Tinoco [facility] _ SOURCE: STOOL SPDESC: ORDERED: CAdrianna nicholson PCR/S, Stool Culture/R, O P: Ofelia/Lina/R Procedure Result Reported Site Stool Culture Final 12/02/16- 1144 ML Result No enteric pathogens isolated Testing for Salmonella, Shigella, Aeromonas, Plesiomonas, Yersinia and Campylobacter are included in a Stool Culture. Vibrio spp not routinely tested for in a stool culture. If testing is desired, please request specifically when placing test order. Sensitivities not routinely performed on stool isolates, as antibiotics may prolong the carriage rate of bacteria. Please contact the microbiology lab if sensitivities are required. Shiga Toxin 1 2 Final 12/03/16- 1008 ML Organism 1 Negative Shiga Toxin 1 2 Immunochromatographic Assay C. difficile PCR Final 11/30/16- 1156 ML Organism 1 027 Presumptive NEGATIVE Organism 2 Toxigenic C.diff NEGATIVE O P: Giardia/Cryptospor Screen Final 11/30/16- 1223 ML Organism 1 Neg Cryptosporidium/Giardia CONTINUED ON NEXT PAGE * ML=Testing performed at Main Lab DEPARTMENT OF PATHOLOGY, [address] [place] [address] Vinayak Yanez M.D. Director [facility] # [id number] Patient: PRICE GUARDADO [id number] (Continued) Specimen: [id number] Collected: 11/30/16 Received: 11/30/16-1024 (Continued) Procedure Result Reported Site O P: Giardia/Cryptospor Screen Final (continued) 11/30/16- 1223 Giardia and cryptosporidium antigen testing performed by enzyme immunoassay. If patient is immunocompromised or has traveled to or is from a developing country, a full ova and parasite exam with microscopic (OPMIC) is recommended. All samples will be held one month in case full ova and parasite testing is requested. Contact the Microbiology Department at [phone]. TEST LIMITATIONS: As with all diagnostic procedures, the results obtained should be used in conjunction with other clinical information available the physician, including confirmation by another method. Negative results can occur in samples containing antigen below lower limits of detection of the assay. One negative specimen does not rule out the possibility of a parasitic infection. To improve detection it is recommended that three specimens be collected on separate days over a period of not more than seven days. The use of colonic washes, aspirates or other diluted sample types has not been established and could affect the performance of the assay. Stool samples contaminated with an oily or particulate base (eg. Barium, mineral oil etc.) could interfere with the test and are not recommended. * ML - MAIN LAB ([facility]) . END OF REPORT * ML=Testing performed at Main Lab DEPARTMENT OF PATHOLOGY, [address] [place] [address] Vinayak Yanez M.D. Director [facility] # [id number] 12 RESULTS VERIFIED BY REPEAT ANALYSIS 13 RESULTS VERIFIED BY REPEAT ANALYSIS 14 Harbour Master: [id number] TENZIN GOMEZ 15 Reference Range and Interpretation: TnI (ng/mL) Interpretation Less Than 0.03 ng/mL Not supportive of diagnosis of GA 0.03 - 0.50 ng/mL Indeterminate: suggest serial studies if clinically indicated. Greater than 0.5 ng/mL Consistent with diagnosis of GA 16 Because ethnic data is not always readily [...] 15-29 5 Kidney failure <15 (or dialysis) 17 Acute inflammation: >10.00 18 1 SST 19 Negative <0.91 Equivocal 0.91 - 1.09 Positive >1.09 20 Negative <0.80 Equivocal 0.80 - 1.19 Positive >1.19 IgM levels may peak at 3-6 weeks post infection, then gradually decline. 21 [facility] Severe Sepsis and Septic Shock Management Bundle Measure requires all lactic acids initially measuring >2.0 mmol/L be repeated. 22 RESULTS VERIFIED BY REPEAT ANALYSIS 23 RESULTS VERIFIED BY REPEAT ANALYSIS 24 Please note: The following may produce a false positive D Dimer test: - Rheumatoid factor greater than 60 IU/ml - Plasma hemoglobin greater than 0.05 gm/dl - Bilirubin greater than 50 mg/dl - Lipids greater than 1000 mg/dl - FDP greater than 20 ug/ml 25 Critical Result LACT:2.6 Called to [id number] at: 17:51:37 by:[id number] Read back by:[id number] [facility] Severe Sepsis and Septic Shock Management Bundle Measure requires all lactic acids initially measuring >2.0mmol/L be repeated. 26 >100 to <200 pg/mL: likely compensated congestive heart failure (CHF) 200 to 400 pg/mL: likely moderate CHF >400 pg/mL: likely moderate to severe CHF 27 Because ethnic data is not always readily [...] 15-29 5 Kidney failure <15 (or dialysis) 28 Acute inflammation: >10.00 29 Reference Range and Interpretation: TnI (ng/mL) Interpretation Less Than 0.03 ng/mL Not supportive of diagnosis of GA 0.03 - 0.50 ng/mL Indeterminate: suggest serial studies if clinically indicated. Greater than 0.5 ng/mL Consistent with diagnosis of GA 30 Because ethnic data is not always readily [...] 15-29 5 Kidney failure <15 (or dialysis) 31 Acute inflammation: >10.00 32 Harbour Master: [id number] FERNANDO PETTIT 33 SEE RESULT BELOW Name: PRICE GUARDADO : [address]: Jessie Lazar MD Acct: [id number] Unit: [id number] AGE: 60 Location: [facility] Re10/13/15 SEX: M Status: REG SDC SPEC: [id number] GABO: 10/13/15-1640 [facility] DR: Jessie Lazar MD REQ: [id number] RECD: 10/13/15707 STATUS: RES [facility] DR: Gabbie Botello MD _ SOURCE: WOUND SPDESC:KNEE LEFT ORDERED: [...] Direct PENDING * ML - MAIN LAB ([facility]) . END OF REPORT * ML=Testing performed at Main Lab DEPARTMENT OF PATHOLOGY, [address] [place] [address] Vinayak Yanez M.D. Director [facility] # [id number] 34 SEE RESULT BELOW Name: PRICE GUARDDAO : [address]: Jessie Lazar MD Acct: [id number] Unit: [id number] AGE: 60 Location: [facility] 338-01 Re10/13/15 Dis: 10/19/15 SEX: M Status: DIS IN SPEC: [id number] GABO: 10/13/15-1640 [facility] DR: Jessie Lazar MD REQ: [id number] RECD: 10/13/15 STATUS: COMP OTHR DR: Gabbie Botello MD _ SOURCE: WOUND SPDESC:KNEE LEFT ORDERED: Tissue Cult/GS/R, Fungal - Other/R, Acid Fast Stain/U COMMENTS: CLOSTRIDIUM FINDINGS IN ADDITION TO S. AUREUS: Verbal to DR. BOTELLO by [id number] at 1411 on 10/15/15. Results read back [...] at Main Lab DEPARTMENT OF PATHOLOGY, [address] [place] [address] Vinayak Yanez M.D. Director [facility] # [id number] Patient: PRICE GUARDADO [id number] (Continued) Specimen: [id number] Collected: 10/13/15-1640 Received: 10/13/15175 (Continued) Procedure Result Reported Site Acid Fast Stain - Direct Final (continued) 10/14/15817 Due to limited sensitivity of the smear, results should be used as an adjunct in evaluating the patient's status and cultural examination is highly recommended for diagnosis. * ML - MAIN LAB ([facility]) . END OF REPORT * ML=Testing performed at Main Lab DEPARTMENT OF PATHOLOGY, [address] [place] [address] Vinayak Yanez M.D. Director [facility] # [id number] 35 SEE RESULT BELOW Name: PRICE GUARDADO : [address]: Jessie Lazar MD Acct: [id number] Unit: [id number] AGE: 60 Location: [facility] 338- Re10/13/15 SEX: M Status: ADM IN SPEC: [id number] GABO: 10/13/15-1640 [facility] DR: Jessie Lazar MD REQ: [id number] RECD: 10/13/15 STATUS: RES OTHR DR: Gabbie Botello MD _ SOURCE: WOUND SPDESC:KNEE LEFT ORDERED: Anaerobic Cult/R, MRSA/SA SSTI/R, Culture Stain/R, Fungal - Other /R, Acid Fast Stain/U COMMENTS: Verbal to GEMINI CHAWLA by [id number] at 2020 on 10/13/15. Results read back [...] at Main Lab DEPARTMENT OF PATHOLOGY, [address] [place] [address] Vinayak Yanez M.D. Director [facility] # [id number] Patient: PRICE GUARDADO [id number] (Continued) Specimen: [id number] Collected: 10/13/15 Received: 10/13/15 (Continued) Procedure Result Reported Site Acid Fast Stain - Direct Final (continued) 10/14/15- 08 Due to limited sensitivity of the smear, results should be used as an adjunct in evaluating the patient's status and cultural examination is highly recommended for diagnosis. * ML - MAIN LAB ([facility]) . END OF REPORT * ML=Testing performed at Main Lab DEPARTMENT OF PATHOLOGY, [address] [place] [address] Vinayak Yanez M.D. Director [facility] # [id number] 36 SEE RESULT BELOW Name: PRICE GUARDADO : [address]: Jessie Lazar MD Acct: [id number] Unit: [id number] AGE: 60 Location: [facility] 338-01 Re10/13/15 Dis: 10/19/15 SEX: M Status: DIS IN SPEC: [id number] GABO: 10/13/15-[address]: Jessie Lazar MD REQ: [id number] RECD: 10/13/15 STATUS: COMP [facility] DR: Gabbie Botello MD _ SOURCE: WOUND SPDESC:KNEE LEFT ORDERED: Anaerobic Cult/R, MRSA/SA SSTI/R, Culture Stain/R, Fungal - Other /R, Acid Fast Stain/U COMMENTS: Verbal to GEMINI CHAWLA by [id number] at 2020 on 10/13/15. Results read back accurately. CLOSTRIDIUM FINDINGS IN ADDITION TO S. AUREUS: Verbal to DR. BOTELLO by [id number] at 1411 on 10/15/15. Results read back [...] S.AUREUS POSITIVE Wound/Misc Gram Stain Final 10/15/15- 0846 ML 3+ Neutrophils 4+ Gram Positive Cocci 3+ Gram Positive Bacilli 1+ Gram Negative Bacilli Wound/Misc Culture Final 10/15/15- 0846 ML CONTINUED ON NEXT PAGE * ML=Testing performed at Main Lab DEPARTMENT OF PATHOLOGY, [address] [place] [address] Vinayak Yanez M.D. Director [facility] # [id number] Patient: PRICE GUARDADO [id number] (Continued) Specimen: [id number] Collected: 10/13/15 Received: 10/13/15175 (Continued) Procedure Result [...] These antibiotics are not available in the [facility] Formulary Contact the Microbiology Department for any additional antibiotic reporting. Fungal Cult - Other Sources Final 11/14/15- 142 ML Fungal Culture No Growth of Mycotic Organisms 4 weeks Acid Fast Stain - Direct Final 10/14/15- 0810 ML CONTINUED ON NEXT PAGE * ML=Testing performed at Main Lab DEPARTMENT OF PATHOLOGY, [address] [place] [address] Vinayak Yanez M.D. Director [facility] # [id number] Patient: PRICE GUARDADO [id number] (Continued) Specimen: [id number] Collected: 10/13/15-1639 Received: 10/13/15 (Continued) Procedure Result Reported Site Acid Fast Stain - Direct Final (continued) 10/14/15809 AFB Smear Result No Acid Fast Bacillus Present (Negative) Preparation By Direct Smear Due to limited sensitivity of the smear, results should be used as an adjunct in evaluating the patient's status and cultural examination is highly recommended for diagnosis. * ML - MAIN LAB ([facility]) . END OF REPORT * ML=Testing performed at Main Lab DEPARTMENT OF PATHOLOGY, [address] [place] [address] Vinayak Yanez M.D. Director [facility] # [id number] 37 SOURCE: KNEE, KNEE WOUND SWAB MYCOBACTERIAL CULTURE FINAL No growth after 60 days of incubation. Test Performed by: [place] [id number] Inter Com Installer: Cam Isidro II, M.D., Ph.D. 38 SHAD MATTHEWS to be notified Harbour Master: [id number] BRANHAM 39 Reference Range and Interpretation: TnI (ng/mL) Interpretation Less Than 0.03 ng/mL Not supportive of diagnosis of GA 0.03 - 0.50 ng/mL Indeterminate: suggest serial studies if clinically indicated. Greater than 0.5 ng/mL Consistent with diagnosis of GA 40 Comment: L knee, second specimen in EDTA tube 41 Red 42 Differential performed on concentrated smear. 43 Acute inflammation. Recommend correlation with microbiology culture studies. Reviewed by Abby Ellis MD 44 Reference Range and Interpretation: TnI (ng/mL) Interpretation Less Than 0.03 ng/mL Not supportive of diagnosis of GA 0.03 - 0.50 ng/mL Indeterminate: suggest serial studies if clinically indicated. Greater than 0.5 ng/mL Consistent with diagnosis of GA 45 Therapeutic target for the treatment of diabetes Mellitus patients is <7% HBA1C, and in selective patients <6.0%.Please refer to [employer] Diabetic care guidelines for further information. 46 SEE RESULT BELOW Name: PRICE GUARDADO : [address]: Jessie Lazar MD Acct: [id number] Unit: [id number] AGE: 60 Location: [place] [address] Re10/13/15 SEX: M Status: ADM IN SPEC: [id number] GABO: 10/13/15 [facility] DR: Jackie Dockery MD REQ: [id number] RECD: 10/13/15 STATUS: DOLORES CARLOS DR: Gabbie Botello MD _ SOURCE: BLOOD,[facility]: ORDERED: Blood Cult Procedure Result Reported Site Aerobic Culture Bottle Final 10/18/15934 ML No Growth Day 5 Anaerobic Culture Bottle Final 10/18/15934 ML No Growth Day 5 * ML - MAIN LAB ([facility]) . END OF REPORT * ML=Testing performed at Main Lab DEPARTMENT OF PATHOLOGY, [address] [place] [address] Vinayak Yanez M.D. Director [facility] # [id number] 47 SEE RESULT BELOW Name: PRICE GUARDADO : [address]: Jessie Lazar MD Acct: [id number] Unit: [id number] AGE: 60 Location: [address] Re10/13/15 SEX: M Status: ADM IN SPEC: [id number] GABO: 10/13/[address]: Jackie Dockery MD REQ: [id number] RECD: 10/13/15 STATUS: DOLORES CARLOS DR: Gabbie Botello MD _ SOURCE: ANNELISE TORRES SPDESC: ORDERED: BF Cult Bottles Procedure Result Reported Site BF Aerobic Culture Bottle Final 10/18/15- 0434 ML No Growth Day 5 BF Anaerobic Culture Bottle Final 10/18/15- 0434 ML No Growth Day 5 * ML - [facility] ([facility]) . END OF REPORT * ML=Testing performed at [facility] DEPARTMENT OF PATHOLOGY, [address] [place] [address] Vinayak Yanez M.D. Director [facility] # [id number] 48 Acute inflammation. Recommend correlation with microbiology culture studies. Reviewed by Abby Ellis MD 49 REFERENCE VALUE Not Applicable 50 Test Performed by: [place] [address] Inter Com Installer: Cam Isidro II, M.D., Ph.D. 51 REFERENCE VALUE Not Applicable 52 Test Performed by: [place] [address] Inter Com Installer: Cam Isidro II, M.D., Ph.D. 53 Because ethnic data is not always readily [...] 15-29 5 Kidney failure <15 (or dialysis) 54 Acute inflammation: >10.00 55 SEE RESULT BELOW Name: PRICE GUARDADO Arcenio : [address]: Jessie Lazar MD Acct: [id number] Unit: [id number] AGE: 60 Location: [place] [address] Re10/13/15 SEX: M Status: ADM IN SPEC: [id number] GABO: 10/13/15 [facility] DR: Jackie Dockery MD REQ: [id number] RECD: 10/13/15 STATUS: DOLORES CARLOS DR: Gabbie Botello MD _ SOURCE: [facility] SOUR SPDESC:KNEE LEFT ORDERED: Culture Stain COMMENTS: Comment: Left knee laceration swab CORRECTED RESULT: Verbal to [id number] by [id number] at 0822 on 10/13/15. Results read back accurately. CLOSTRIDIUM FINDINGS IN ADDITION TO S. AUREUS: Verbal to DR. BOTELLO by [id number] at 1411 on 10/15/15. Results read back accurately. Procedure Result Reported Site Wound/Misc Gram Stain Final 10/13/15- 823 ML 2+ Neutrophils 3+ Gram Positive Cocci in Clusters, resembling Staph WITH LARGE GRAM VARIABLE BACILLI Wound/Misc Culture Final 10/15/15- 1421 ML Organism 1 STAPHYLOCOCCUS AUREUS Quantity 3+ Organism 2 CLOSTRIDIUM PERFRINGENS Quantity 3+ Anaerobic sensitivities are not routinely performed. Positive isolates will be saved for one week. Please call the Microbiology Laboratory if susceptibility testing is needed. CONTINUED ON NEXT PAGE * ML=Testing performed at Main Lab DEPARTMENT OF PATHOLOGY, [address] [place] [address] Vinayak Yanez M.D. Director [facility] # [id number] Patient: PRICE GUARDADO [id number] (Continued) Specimen: [id number] Collected: 10/13/15 Received: 10/13/15 (Continued) Procedure Result Reported Site Wound/Misc Culture Final (continued) 10/15/15 142 1. STAPHYLOCOCCUS AUREUS M.I.C. RX --------- ------ Penicillin >=0.5 R Clindamycin <=0.25 S Erythromycin <=0.25 S Gentamicin <=0.5 S Linezolid 2 S Nitrofurantoin 32 S Oxacillin <=0.25 S * Quinupristin/Dalfopristin <=0.25 S Rifampin <=0.5 S Tetracycline <=1 S Doxycycline - Deduced S * Minocycline - Deduced S Trimethoprim/Sulfamethoxazole <=10 S Vancomycin <=0.5 S Imipenem-Deduced S * Ampicillin/Sulbactam-Deduced S Cefazolin-Deduced S * These antibiotics are not available in the [facility] Formulary Contact the Microbiology Department for any additional antibiotic reporting. * ML - MAIN LAB ([facility]) . END OF REPORT * ML=Testing performed at Main Lab DEPARTMENT OF PATHOLOGY, [address] [place] [address] Vinayak Yanez M.D. Director [facility] # [id number] 56 RESULTS VERIFIED BY REPEAT ANALYSIS 57 consistent w/ previous results 58 INVALID 59 RESULTS VERIFIED BY REPEAT ANALYSIS 60 RESULT SUN'D 61 GREATER THAN 1.060 62 Because ethnic data is not always readily [...] 15-29 5 Kidney failure <15 (or dialysis) 63 Reference Range and Interpretation: TnI (ng/mL) Interpretation Less Than 0.06 ng/mL Not supportive of diagnosis of GA 0.06 - 0.50 ng/mL Indeterminate: suggest serial studies if clinically indicated. Greater than 0.5 ng/mL Consistent with diagnosis of GA 64 The detection limit for Ethanol is 10.0 mg/dl . Values less than 10.0 mg/dl cannot be accurately measured. 65 RUN DATE: 11/12/12 [facility] LAB LIVE PAGE 1 RUN TIME: [address] [place] [address] Specimen Inquiry Name: PRICE GUARDADO : [address]: Eliot Valiente MD Acct: [id number] Unit: [id number] AGE: 57 Location: ENDO Re11/11/12 SEX: M Status: REG REF SPEC: [id number] GABO: 11/11/12- [facility] DR: Eliot Valiente MD REQ: [id number] RECD: 11/11/12 STATUS: DARIANA CARLOS DR: Doroteo Willis MD _ ORDERED: LEVEL IV/2 FINAL DIAGNOSIS 1. Colon, transverse, biopsy: Hyperplastic polyp. 2. Colon, 20 cm., biopsy: Disaggregated small bowel mucosa with hyperplastic change. CLINICAL HISTORY History of fecal incontinence, no history of a previous colonoscopy POST-OPERATIVE DIAGNOSIS Colon polypectomies; no cause of incontinence identified GROSS DESCRIPTION 1. The specimen is received in formalin labelled Price Guardado, Transverse Colon Polyp, and consists of a polypoid chavez, soft tissue fragment measuring 0.6 x 0.5 x 0.5 cm. Submitted entirely, one cassette. 2. The specimen is received in formalin labelled Price Guardado, Colon Polyp at 20 cm., and consists of chavez-pink, soft tissue fragments measuring 0.2 x 0.1 x 0.1 cm. in aggregate. Submitted entirely, one cassette. Signed (signature on file) Vinayak Yanez MD 1321 END OF REPORT * ML=Testing performed at Main Lab DEPARTMENT OF PATHOLOGY, [address] [place] [address] Vinayak Yanez M.D. Director [facility] Permit #[id number] 66 results sun'd and triaged provider 67 RESULT SUN'D 68 RESULT SUN'D MD AWARE 69 RESULT SUN'D 70 Lymphopenia % H H Check Failed 71 The detection limit for ETHANOL is 10.0 mg/dl . Values less than 10.0 mg/dl cannot be accurately measured. . 72 Anion gap measurement may be of limited value in the presence of any alkalosis, especially in a combined acid base disorder. . 73 Note change in reference range as of 05/20/08. The change was based on recommendations from the [place] [employer]. 74 A metabolite of Naproxen, O-desmethylnaproxen, has been shown to interfere with the Jendrassik-Janine method for measuring total bilirubin. Samples from patients who have taken Naproxen have shown spurious elevation in total bilirubin levels. 75 Because ethnic data is not always readily [...] 15-29 5 Kidney failure <15 (or dialysis) 76 FASTING 77 results rechecked 78 RESULTS RECKD' Procedures Date CPT Code Description Status 12/23/2017 85622 Finger Or Heel Stick Completed 06/19/2017 73270 Finger Or Heel Stick Completed 04/16/2017 96508 Finger Or Heel Stick Completed 03/30/2017 Diabetic Retinal Eye Exam Completed 07/25/2016 21064 Finger Or Heel Stick Completed 04/19/2016 38112 Makenzie-Noninvasive physiologic studies of upper or lower Completed extremity 09/08/2015 43132 Finger Or Heel Stick Completed 07/21/2013 90645 Finger Or Heel Stick Completed 03/10/2013 94660 Finger Or Heel Stick Completed 12/02/2012 66116 Finger Or Heel Stick Completed 11/18/2012 98248 Finger Or Heel Stick Completed 11/11/2012 Colonoscopy Completed 11/04/2012 73484 Finger Or Heel Stick Completed 10/02/2012 76141 Finger Or Heel Stick Completed Encounters Type Date Location Provider CPT E/M Dx Office Visit 02/22/2018 11:20a Main Office Gabbie Botello M.D. 05860 R19.7 F33.0 I70.213 G40.89 E11.65 Z12.11 Office Visit 12/23/2017 12:00p Main Office Gabbie Botello M.D. 20212 E11.65 G25.0 E78.2 Z12.11 Office Visit 08/20/2017 1:20p [facility] Gabbie Botello M.D. 90291 E11.65 E78.2 F33.0 G25.0 Office Visit 06/19/2017 10:40a [facility] Gabbie Botello M.D. 17085 E11.65 E78.2 F33.0 I70.213 G25.0 G40.89 M25.511 Office Visit 04/16/2017 1:30p Main Office Gabbie Botello M.D. 81794 E11.65 E78.2 F33.0 I70.213 Office Visit 01/15/2017 2:40p Main Office Gabbie Botello M.D. 37117 E11.65 E78.2 R11.10 F33.0 Office Visit 11/27/2016 1:00p [facility] Gabbie Botello M.D. 11100 E11.65 E78.2 F33.0 R11.10 R19.7 G25.0 Office Visit 07/25/2016 1:40p [facility] Gabbie Botello M.D. 16486 E11.65 E78.2 I70.213 R19.7 Office Visit 06/19/2016 10:00a Main Office Heidi AbdallaCas 35810 M79.671 R23.8 Office Visit 05/03/2016 5:00p Main Office Gabbie Botello M.D. 26220 E11.65 R11.2 Office Visit 04/14/2016 9:00a Main Office Cas Robert 92399 E11.65 R53.83 M79.604 M79.605 R11.2 E78.1 Office Visit 01/17/2016 1:40p Main Office Gabbie Botello M.D. 24031 E11.65 E78.2 Z71.6 F17.210 Office Visit 12/08/2015 5:00p Main Office Gabbie Botello M.D. 64400 E11.65 E78.2 Office Visit 09/08/2015 5:20p Main Office Gabbie Botello M.D. 46196 E11.65 R15.2 Office Visit 07/07/2015 6:40p Main Office Gabbie Botello M.D. 15893 E11.65 E78.2 R15.2 Office Visit 05/05/2015 8:00p Main Office Gabbie Botello M.D. 34856 250.82 272.2 787.63 Office Visit 01/11/2015 10:10a Main Office Gabbie Botello M.D. 86067 784.7 787.63 250.00 Office Visit 01/06/2015 5:00p Main Office Gabbie Botello M.D. 09377 250.82 272.2 791.0 272.1 Office Visit 10/28/2014 7:30p Main Office Gabbie Botello M.D. 93521 250.82 272.2 Office Visit 10/05/2014 10:30a Main Office Cas Robert 21774 250.82 787.91 250.00 Office Visit 07/21/2013 1:00p Main Office Imelda Salas-C 29294 250.00 333.1 272.2 Office Visit 03/10/2013 1:00p Main Office Imelda Salas-C 83598 250.00 729.5 Office Visit 12/02/2012 1:15p Main Office Moncadanp-C 89478 250.00 Office Visit 11/18/2012 12:00p Main Office Moncadanp-C 26004 250.00 Office Visit 11/04/2012 1:00p Main Office Moncadanp-C 16192 250.00 682.3 Office Visit 10/02/2012 1:15p Main Office Imelda Salas-C 15571 250.02 788.34 Office Visit 09/02/2012 1:15p Main Office Imelda Salas-C 49239 250.02 Office Visit 05/02/2012 10:00a Main Office Yogesh Hutton M.D. 59172 682.3 250.00 Office Visit 05/07/2011 11:00a Main Office Doroteo Willis M.D. 57477 782.1 250.00 Office Visit 03/02/2011 11:20a Main Office Doroteo Willis M.D. 90496 723.1 724.5 Office Visit 02/21/2011 1:20p Main Office Doroteo Willis M.D. 18569 723.1 724.5 955.2 368.2 Office Visit 01/12/2011 9:40a Main Office Doroteo Willis M.D. 45936 311 250.00 780.79 Office Visit 04/06/2010 10:00a Main Office Doroteo Willis M.D. 29132 311 300.00 Office Visit 03/10/2010 11:20a Main Office Doroteo Willis M.D. 58663 311 Office Visit 01/25/2010 1:20p Main Office Doroteo Willis M.D. 07263 250.00 434.91 Office Visit 06/20/2009 1:00p Main Office Doroteo Willis M.D. 87125 311 434.91 Office Visit 04/25/2009 9:40a Main Office Doroteo Willis M.D. 34286 311 Office Visit 03/18/2009 11:00a Main Office Doroteo Willis M.D. 24692 523.01 Office Visit 02/25/2009 11:00a Main Office Doroteo Willis M.D. 76566 250.00 Office Visit 02/04/2009 9:40a Main Office Doroteo Willis M.D. 91316 V77.1 V77.0 V77.91 V78.1 250.00 305.1 Plan of Care Future Appointment(s):08/25/2018 12:20 pm - Gabbie Botello M.D. at [id number] - Imelda Robert-[id number] Type 2 diabetes mellitus with hyperglycemiaFollow up:Followup:. (Follow up)I73.9 Peripheral vascular disease, unspecifiedAllComments:~B_~U_Medication Management~b_~u_ Patient Understands medications he's taking? Yes No Are there Barriers to Adherence? Yes No Has the patient been asked about herbal supplements and therapies, and OTC meds? Yes No ~B_~U_Care Plan~b_~u_1. Patient has been queried about patient's goals/preferences and functional/lifestyle goals at relevant visits. If relevant, describe: na2. Treatment goals as explained to the patient: abovecont dm control cont off tobacco 3. Are therebarriers to meeting treatment goals? Yes No If Yes, please describe:4. Self- Management goals as described to the patient: Yes No continued f/u with Dr Moe f/u with endocrine routine nail and foot care with podiatryroutine f/u with pcp 07/17
[2018-05-27] MEDS ORDERED: ZOSYN 3.375 GM x ONE DOSE over 30 miuntes IVPB ×2 (18:30)
[2018-05-27 18:46] LABS: ABS Basophils 0 10^3/ul (0-0.2); ABS Eosinophils 0.1 10^3/ul (0-0.6); ABS Lymphocytes 0.5 10^3/ul (1.0-4.8); ABS Monocytes 0.9 10^3/ul (0-0.8); ABS Neutrophils 5.4 10^3/ul (1.5-7.7); ABS Nucleated RBC 0 10^3/ul; Hematocrit 33 % (42-52); Hemoglobin 11.7 g/dl (14.0-18.0); Lymphocyte % 7.6 % (25-47); Mean Corpuscular HGB Conc 36 g/dl (31-36); Mean Corpuscular Hemoglobin 31 pg (27-31); Mean Corpuscular Volume 87 fL (80-94); Mean Platelet Volume 7.8 um3 (7.4-10.4); Nucleated Red Blood Cells % 0; Platelet Count 132 10^3/ul (150-450); Red Blood Count 3.78 10^6/ul (4.00-5.40); Red Cell Distribution Width 12 % (10.5-15); White Blood Count 6.9 10^3/ul (3.5-10.8)
[2018-05-27] MEDS ORDERED: Dextrose 50% Syringe 50 ML* 25 GM/50 ML SYRINGE IV PUSH PRN (19:02)
[2018-05-27] MEDS ORDERED: Insulin REGULAR(*) 1 UNITS UNIT IV PUSH ONE (19:24)
[2018-05-27] MEDS ORDERED: Insulin LISPRO* 1 UNITS UNIT SUBCUT SCH (21:00)
--- NOTE | 2018-05-27 21:58 | CONS ---
CONSULTATION REPORT: DATE OF CONSULT: 05/27/18 PROVIDER: Aissatou Castellanos NP ATTENDING PHYSICIAN: Dr. Alvarez (report dictated by Aissatou Castellanos NP). PRIMARY CARE PROVIDER: Dr. Willis. REFERRING PHYSICIAN: Dr. King, orthopedic surgeon. REASON FOR CONSULT: Co-medical management, preoperative risk evaluation. HISTORY OF PRESENT ILLNESS: Mr. Doty is a 62-year-old male with a past medical history of insulin dependent type 2 diabetes, tobacco abuse, peripheral vascular disease, history of coronary artery disease, status post CVA, and recurrent TIAs, essential tremor, depression, hypertension, history of mild traumatic brain injury and recent left great toe gangrene and osteomyelitis status post amputation on 04/24/18, who presents today to the [facility] as a direct admit under the orthopedic group for nonhealing wound with concern for infection. The patient was seen in the orthopedic office today by Dr. King, who direct admitted the patient to this short stay surgical unit for IV antibiotics, MRI, blood work with plan to potentially take the patient to the OR for further surgical intervention. The patient was seen and evaluated at the bedside where he was found to be alert and oriented x3, in no acute distress. The patient reports that he has been feeling well and has been at home, able to ambulate on his foot and has been followed by the orthopedic team as an outpatient. He reports today that Dr. King looked at his foot and noted that there was "a hole with pus and wants me to have IV antibiotics and potentially will require further surgical intervention." The patient reports that he has been feeling well and denies any fevers or chills. No nausea, vomiting, diarrhea, abdominal pain. His only complaint is that he has been more fatigue than normal. The patient denies any shortness of breath or chest pain at rest or with the exertion. No recent illness since he was discharged. The patient reports that he wears an insulin pump and his sugars have been controlled at home. Please note that the patient did have a prior hospitalization from 04/15/18 to 04/19/18 for left first toe wound with claudication in which he was diagnosed with critical limb ischemia of the left foot and underwent a revascularization with Interventional Radiology with Dr. Mahan. It was after that the patient was discharged to home on antibiotics that he underwent the left great toe amputation on 04/24/18 PAST MEDICAL HISTORY: 1. Insulin-dependent type 2 diabetes. 2. Recurrent TIAs. 3. History of CVA. 4. History of coronary artery disease. 5. Essential tremor. 6. Depression. 7. History of septic knee. 8. Hypertension. 9. History of mild traumatic brain injury. 10. Status post left great toe amputation with toe gangrene and osteomyelitis surgery, 04/24/18. MEDICATIONS: 1. Metformin 1000 mg p.o. b.i.d. 2. Lamictal 200 mg p.o. q.a.m. 3. Glipizide 10 mg p.o. q.a.m. 4. Norvasc 5 mg p.o. q.a.m. 5. Zoloft 100 mg p.o. q.a.m. 6. Nitro patch 14 mg/24 hours transderm daily. 7. Lispro 30 units per insulin pump given over the course of 24 hours and p.r.n. lispro sliding scale. 8. Colace 100 mg p.o. b.i.d. p.r.n. 9. Plavix 75 mg p.o. q.p.m. 10. Aspirin 81 mg p.o. q.a.m. 11. CBD oil 1 cap p.o. q.6 hours p.r.n. ALLERGIES: No known allergies. FAMILY HISTORY: Reviewed and noncontributory. SOCIAL HISTORY: The patient reports he is trying to quit smoking tobacco. He has smoked 1 pack a day for the past 50 years. Denies alcohol or illicit drug abuse. 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 He lives at home with his Maryam, who is his healthcare proxy. He is a full code. REVIEW OF SYSTEMS: A 14-point review of systems was performed. All the pertinent positives and negatives are mentioned in the history of present illness, otherwise are negative. PHYSICAL EXAM: Vital signs: Temperature 98.8, heart rate 103, respirations 18 , pulse oximetry 99% on room air, blood pressure 93/60. General Appearance: A 62- year-old male, alert and oriented x3, in no acute distress, very pleasant, good historian. HEENT: Head is normocephalic, atraumatic. Pupils are equal and reactive to light. Oropharynx is clear. Moist mucous membranes. Neck: Supple. Cardiac: S1, S2. Regular rate and rhythm. Slightly tachycardic. Lungs are clear to auscultation bilaterally with good aeration throughout. Abdomen: Soft, nontender, nondistended. Normal bowel sounds throughout. Obese. Left lateral quad has intact insulin pump. Extremities: Left foot has gauze that is clean, dry, and intact. No drainage noted. Bilateral lower extremities are warm, pink, and well perfused. Neuro: Alert and oriented x3. No focal deficits noted. DIAGNOSTIC STUDIES/LAB DATA: Labs from 05/27/18, WBC 6.9, Hgb 11.7, Hct 33, platelet count 132. BMP is pending at the time of dictation. ASSESSMENT AND PLAN: Mr. Doty is a 62-year-old male with a past medical history of insulin-dependent type 2 diabetes, recent diagnosis of critical limb ischemia, status post revascularization now is status post left great big toe amputation in which he has been followed by the orthopedic team, found to have a nonhealing wound, which is now there is a concern for infection who was direct admitted by the orthopedic team for IV antibiotics and possible further surgical intervention. 1. Left great toe wound infection. The patient is status post amputation of most of the left toe but there still appears to be some of the toe left, which is bandaged at the time of evaluation. Per the patient, the orthopedic team evaluated his wound today and felt that it requires IV antibiotics and possible possible further surgical intervention. The patient denies any fevers or chills. He is noted to have a heart rate of 106 and soft blood pressures systolically in the 90s. He has no leukocytosis. Will add on a lactic acid to his labs this evening. The patient has been started on LR at 75 mL an hour by the orthopedic team; however, due to his mild tachycardia and soft blood pressures, we will give the patient 1 L at 150 mL an hour x1 L, then decrease the dose to 75 mL an hour. The patient has been started on Zosyn by the orthopedic team. Plan for MRI of the left lower extremity. The patient is stable and doing well and is asymptomatic at this time. His preoperative revised cardiac risk index is class 4 risk placing him in the 11% risk of major cardiac event. The patient did recently have surgery at the end of March and did well. EKG showing normal sinus rhythm in comparison to prior EKG there are no noted changes. Last echocardiogram was 12/10/16 showing normal left ventricular wall motion and contractility WNLs, EF 55-60%, mild LVH, normal right ventricular global systolic function, no evidence of aortic stenosis, valvular function WNLs. The patient is optimized to proceed with surgery from a medical standpoint without the need for further cardiac testing. 2. Type 2 diabetes, insulin-dependent. The plan will be to discontinue the patient's insulin pump and check fingersticks a.c. and h.s. with lispro sliding scale. The patient does not use any long-acting insulin. We will continue to monitor closely. Consistent carb diet. Hold metformin and glipizide. 3. Peripheral vascular disease. The patient was recently revascularized on with Interventional Radiology in which he was found to have critical limb ischemia. The patient was discharged with aspirin and Plavix, which will be lifelong for the patient. The aspirin and Plavix will need to be held due to the plan to take the patient to the OR. 4. Tobacco abuse. Continue nicotine patch. 5. History of cerebrovascular accident. Currently hold aspirin and Plavix for anticipated surgery. 6. DVT prophylaxis. SCDs. 7. Code status. Full code. Hospital Medicine will continue to follow along and co-medical manage. TIME SPENT: Approximately 60 minutes were spent on this consultation. We will touch base with the ortho team to discuss plan. AISSATOU CASTELLANOS, MARJORIE [id number]/CPS #: [id number] LETY
--- NOTE | 2018-05-27 22:38 | RAD ---
EXAM: MR Left Lower Extremity Without Intravenous Contrast, Foot EXAM DATE/TIME: 05/27/2018 9:18 PM CLINICAL HISTORY: The patient age is 62 years old and is male; Signs and symptoms; Other: Osteomyelitis; Prior surgery; Surgery date: <1 month; Surgery type: Left great toe amputation; Patient HX: Pt had left great toe amputation on 04/24/18. Area is still not healing. Pt is a diabetic; Additional info: R/O osteomyelitis left foot. Motion on the images, talked with patient and ran propeller images; Best images possible Facility exam id and description: Mr mauriceex l wo mri lower extremity left w/o TECHNIQUE: Multiplanar magnetic resonance images of the left foot without intravenous contrast. COMPARISON: [facility] L WO MRI LOWER EXTREMITY LEFT W/O 04/15/2018 5:15 PM FINDINGS: LIGAMENTS: Medial collateral: No acute tear, as visualized. Lateral collateral: No acute tear, as visualized. Lisfranc: No visualized acute tear. TENDONS: Flexor: See below. Extensor: There is mild increased fluid surrounding the flexor hallucis tendon, consistent with tenosynovitis. Postoperative changes involve the flexor and extensor tendons to the great toe distally. Muscles: Progressive muscle edema is identified. This is suggestive of myositis or a complication of diabetes. Fluid: A small effusion is identified at the first MTP joint. Sinus tarsi: Edema is identified within the sinus tarsi. Plantar fascia: The plantar fascia extends out of the [id number] of the study, but is intact as visualized. Bones/joints: There is partial amputation of the great toe. This is new compared to the prior study. There is significant edema within the bone marrow of the remaining proximal first phalanx. This is suspicious for osteomyelitis, although postoperative change can contribute to this edema. Evaluation for abscess is limited by the absence of post contrast sequences. There is a small T2 hyperintense fluid collection or area of phlegmonous change at the amputation site of the great toe measuring 2.1 x 0.6 x 1.7 cm. This is likely postoperative or infectious in etiology. There is dorsal spurring at the talonavicular joint. No visualized dislocation. Soft tissues: There is soft tissue swelling of the foot, most significant dorsally and of the great toe. This is consistent with cellulitis in the appropriate clinical setting. Other findings: The study concentrates on the mid and forefoot. IMPRESSION: 1. There is partial amputation of the great toe. This is new compared to the prior study. 2. There is significant edema within the bone marrow of the remaining proximal first phalanx. This is suspicious for osteomyelitis, although postoperative change can contribute to this edema. 3. There is a small fluid collection or area of phlegmonous change at the amputation site of the great toe measuring 2.1 x 0.6 x 1.7 cm. This is likely postoperative or infectious in etiology. 4. There is soft tissue swelling of the foot, most significant dorsally and of the great toe. This is consistent with cellulitis in the appropriate clinical setting. 5. A small effusion is identified at the first MTP joint. 6. Progressive muscle edema is identified. This is suggestive of myositis or a complication of diabetes. 7. Mild tenosynovitis of the flexor hallucis tendon. 8. Additional findings described above.
[2018-05-27] MEDS: Insulin LISPRO* 1 UNITS UNIT SUBCUT SCH ×2 (22:50→22:51)
[2018-05-27] MEDS ORDERED: Piperacillin/Tazobac ADVAN(*) 3.375 GM in NS 0.9% 100 ML* 100 ML IVPB SCH (23:00)
[2018-05-28] MEDS: Insulin LISPRO* 1 UNITS UNIT SUBCUT SCH ×5 (04:20→20:04)
[2018-05-28] MEDS: ZOSYN 3.375 GM Q6H - Intermittant 30 min Infusion IVPB SCH ×8 (04:26→21:42)
[2018-05-28 05:37] LABS: ABS Basophils 0 10^3/ul (0-0.2); ABS Eosinophils 0.1 10^3/ul (0-0.6); ABS Lymphocytes 0.6 10^3/ul (1.0-4.8); ABS Monocytes 0.8 10^3/ul (0-0.8); ABS Neutrophils 3.6 10^3/ul (1.5-7.7); ABS Nucleated RBC 0 10^3/ul; Eosinophil % 2.7 % (0-6); Hematocrit 32 % (42-52); Hemoglobin 11.4 g/dl (14.0-18.0); Lymphocyte % 11.9 % (25-47); Mean Corpuscular HGB Conc 35 g/dl (31-36); Mean Corpuscular Hemoglobin 30 pg (27-31); Mean Corpuscular Volume 86 fL (80-94); Nucleated Red Blood Cells % 0.4; Platelet Count 124 10^3/ul (150-450); Red Blood Count 3.77 10^6/ul (4.00-5.40); Red Cell Distribution Width 12 % (10.5-15); White Blood Count 5.2 10^3/ul (3.5-10.8)
[2018-05-28 05:54] LABS: EGFR Non-African American 82.8 (>60)
--- NOTE | 2018-05-28 07:45 | PN ---
Subjective Date of Service: 05/28/18 Interval History: Pt reports he is doing well. Offers no complaints - overall feels better today. no fever/chills. Objective Active Medications: Acetaminophen (Tylenol Tab*) 650 mg PO Q6H PRN PRN Reason: PAIN OR TEMPERATURE Dextrose (D50w Syringe 50 Ml*) 12.5 gm IV PUSH .FOR FS < 60 - SS PRN PRN Reason: FS < 60 Diphenhydramine HCl (Benadryl Iv*) 25 mg IV Q6H PRN PRN Reason: PRURITIS Lactated Ringer's (Lactated Ringers 1000 Ml Bag*) 1,000 mls @ 75 mls/hr IV PER RATE [facility] Last Admin: 05/28/18 06:13 Dose: 75 mls/hr Piperacillin Sod/Tazobactam (Sod 3.375 gm/ Sodium Chloride) 100 mls @ 200 mls/ hr IVPB Q6H ANGUS Last Admin: 05/28/18 04:26 Dose: 200 mls/hr Insulin Human Lispro (Humalog*) 0 units SUBCUT Q4H [facility]; Protocol Last Admin: 05/28/18 04:20 Dose: 6 units Ondansetron HCl (Zofran Inj*) 4 mg IV Q6H PRN PRN Reason: NAUSEA Vital Signs - 8 hr 05/28/18 05/28/18 00:30 04:28 Temperature 100.0 F 98.1 F Pulse Rate 87 80 Respiratory 16 16 Rate Blood Pressure 109/68 126/61 (mmHg) O2 Sat by Pulse 93 95 Oximetry Oxygen Devices in Use Now: None Appearance: A+Ox3 62 yo male sitting up in bed in NAD Eyes: No Scleral Icterus, PERRLA Ears/Nose/Mouth/Throat: NL Teeth, Lips, Gums, Clear Oropharnyx, Mucous Membranes Moist Respiratory: Symmetrical Chest Expansion and Respiratory Effort, Clear to Auscultation Cardiovascular: RRR, No Edema Abdominal: NL Sounds; No Tenderness; No Distention Skin: - - left tow bandage CD+I - peripheral extremitys are warm & Pick Neurological: Alert and Oriented x 3, NL Sensation, NL Muscle Strength and Tone Lines/Tubes/Other Access: Clean, Dry and Intact Peripheral IV Nutrition: Taking PO's Result Diagrams: 05/28/18 10:49 05/28/18 10:49 Assess/Plan/Problems-Billing Assessment: Mr. Doty is a 62-year-old male with a past medical history of insulin-dependent type 2 diabetes, recent diagnosis of critical limb ischemia, status post revascularization now is status post left great big toe amputation in which he has been followed by the orthopedic team, found to have a non- healing wound and concern for infection who was direct admitted by the orthopedic team for IV antibiotics and possible further surgical intervention. - Patient Problems (1) Non-healing open wound of toe Comment: - Dispo per Orth Team - ID following - recommends continue zosyn, cx sent - also will await intraoperative cx - Plan for OR tomorrow. - NPO after midnight (2) Acute kidney injury Comment: Resolved with IVFs (3) Peripheral arterial disease Comment: - Hx of claudication s/p revascularzation March 2018 - Hold plavix/ASA for surgery - restarting when cleared by Ortho post-op (4) Diabetes mellitus Comment: - blood sugars high today - insulin scale adjusted - Give 5 units lantus x 1 now - Continue lispro SS and adjust based on sugars (5) DVT prophylaxis Comment: HSQ (6) Full code status Status and Disposition: inpatient. Dispo per Ortho team. Hospital Medicine will follow along for co- medical management
--- NOTE | 2018-05-28 09:21 | PN ---
Progress Note - Progress Note Date of Service: 05/28/18 SOAP: Subjective: []Patient seen at bedside. He is feeling well without fever, chills or left foot pain. He was sent in from our office yesterday due to a nonhealing wound and infection of his left toe. Objective: []General: Well appearing, NAD LLE: dressing soaked through with purulence and blood, dressing changed. 1 x 0.5 cm open lesion with purulence on distal tip of great toe stump. Erythema and warmth spans back to the MTP with no streaking proximally. Lacks sensation of foot at baseline. Cap refill less than two seconds distally. Vital Signs Temp 98.1 F 05/28/18 07:12 Pulse 72 05/28/18 07:12 Resp 17 05/28/18 07:12 BP 136/67 05/28/18 07:12 Pulse Ox 97 05/28/18 07:12 Intake & Output 05/27/18 05/28/18 05/28/18 18:59 06:59 18:59 Intake Total 1709 Output Total 0 Balance 1709 Weight 180 lb 180 lb Intake: IV Fluids 959 ABX - PIPERACILLIN 110 LR 849 Oral 750 Output: Urine 0 Other: Estimated Void Medium # Voids 1 Laboratory Last Values WBC 5.2 10^3/ul (3.5-10.8) 05/28/18 05:07 RBC 3.77 10^6/ul (4.00-5.40) L 05/28/18 05:07 Hgb 11.4 g/dl (14.0-18.0) L 05/28/18 05:07 Hct 32 % (42-52) L 05/28/18 05:07 MCV 86 fL (80-94) 05/28/18 05:07 MCH 30 pg (27-31) 05/28/18 05:07 MCHC 35 g/dl (31-36) 05/28/18 05:07 RDW 12 % (10.5-15) 05/28/18 05:07 Plt Count 124 10^3/ul (150-450) L 05/28/18 05:07 MPV 8.0 um3 (7.4-10.4) 05/28/18 05:07 Neut % (Auto) 70.0 % (38-83) 05/28/18 05:07 Lymph % (Auto) 11.9 % (25-47) L 05/28/18 05:07 [place] % (Auto) 14.5 % (0-7) H 05/28/18 05:07 Eos % (Auto) 2.7 % (0-6) 05/28/18 05:07 Baso % (Auto) 0.9 % (0-2) 05/28/18 05:07 Absolute Neuts (auto) 3.6 10^3/ul (1.5-7.7) 05/28/18 05:07 Absolute Lymphs (auto) 0.6 10^3/ul (1.0-4.8) L 05/28/18 05:07 Absolute Monos (auto) 0.8 10^3/ul (0-0.8) 05/28/18 05:07 Absolute Eos (auto) 0.1 10^3/ul (0-0.6) 05/28/18 05:07 Absolute Basos (auto) 0 10^3/ul (0-0.2) 05/28/18 05:07 Absolute Nucleated RBC 0 10^3/ul 05/28/18 05:07 Nucleated RBC % 0.4 05/28/18 05:07 ESR 86 mm/Hr (0-20) H 05/27/18 18:39 Sodium 136 mmol/L (135-145) 05/28/18 05:07 Potassium 4.0 mmol/L (3.5-5.0) 05/28/18 05:07 Chloride 104 mmol/L (101-111) 05/28/18 05:07 Carbon Dioxide 25 mmol/L (22-32) 05/28/18 05:07 Anion Gap 7 mmol/L (2-11) 05/28/18 05:07 BUN 11 mg/dL (6-24) 05/28/18 05:07 Creatinine 0.92 mg/dL (0.67-1.17) 05/28/18 05:07 Est GFR ( Amer) 100.2 (>60) 05/28/18 05:07 Est GFR (Non-Af Amer) 82.8 (>60) 05/28/18 05:07 BUN/Creatinine Ratio 12.0 (8-20) 05/28/18 05:07 Glucose 235 mg/dL (70-100) H 05/28/18 05:07 POC Glucose (mg/dL) 201 mg/dL (70-100) H 05/28/18 07:48 Lactic Acid 2.0 mmol/L (0.5-2.0) 05/27/18 19:19 Calcium 8.5 mg/dL (8.6-10.3) L 05/28/18 05:07 C-Reactive Protein 113.09 mg/L (<8.01) H 05/27/18 18:39 Assessment: [] Left great toe infection/ nonhealing wound Plan: []Heel WB LLE To OR tomorrow with Dr King. NPO at midnight. Heparin today for DVT prophylaxis to be held at midnight.
[2018-05-28 11:02] LABS: ABS Basophils 0 10^3/ul (0-0.2); ABS Eosinophils 0.2 10^3/ul (0-0.6); ABS Lymphocytes 0.7 10^3/ul (1.0-4.8); ABS Monocytes 0.8 10^3/ul (0-0.8); ABS Neutrophils 3.7 10^3/ul (1.5-7.7); ABS Nucleated RBC 0 10^3/ul; Eosinophil % 3.4 % (0-6); Hematocrit 32 % (42-52); Lymphocyte % 12.3 % (25-47); Mean Corpuscular HGB Conc 35 g/dl (31-36); Mean Corpuscular Hemoglobin 30 pg (27-31); Mean Corpuscular Volume 87 fL (80-94); Mean Platelet Volume 7.8 um3 (7.4-10.4); Nucleated Red Blood Cells % 0; Platelet Count 134 10^3/ul (150-450); Red Blood Count 3.65 10^6/ul (4.00-5.40); Red Cell Distribution Width 13 % (10.5-15); White Blood Count 5.3 10^3/ul (3.5-10.8)
[2018-05-28] MEDS: Heparin VIAL(*) 5000 UNITS/ML VIAL (FIVE THOUSAND) SUBCUT SCH ×2 (11:15→18:05)
[2018-05-28 11:25] LABS: EGFR Non-African American 68.8 (>60)
[2018-05-28 11:31] LABS: INR 0.97 (0.77-1.02)
--- NOTE | 2018-05-28 12:29 | CONS ---
CONSULTATION REPORT: DATE OF CONSULT: 05/28/18 REQUESTING PHYSICIAN: Dr. King CONSULTING SERVICE: Infectious Disease. REASON FOR CONSULTATION: Left foot infection. IMPRESSION: 1. Recent left great toe gangrene status post partial amputation of the toe and Group B strep infection. Now with incision dehiscence, abscess, acute osteomyelitis of the proximal phalanx, could be strep again or a secondary infection. 2. Diabetes with neuropathy. 3. Peripheral vascular disease. RECOMMENDATIONS: We will continue Zosyn 3.375 g every 8 hours, I will take a wound swab. He will have operative cultures when he has debridement. HISTORY OF PRESENT ILLNESS: This is a 62-year-old male with vascular disease and recent admission mid March with left great toe gangrene status post amputation of the distal phalanx. He had a course of oral antibiotics for about 3 weeks postoperatively, did well except for one small area of the incision that never healed up and he started to have some drainage, redness and swelling there. Because of his symptoms, he was directed to the hospital by Dr. King. He was started on Zosyn overnight and is tolerating that well. He had an MRI last night that showed bone marrow edema in the proximal phalanx as well as abscess and myositis. He is tolerating the antibiotics well. Redness and swelling are about the same today. Minimal pain. PAST MEDICAL HISTORY: 1. Peripheral vascular disease and history of left lower extremity below-the- knee intervention. 2. Type 2 diabetes with neuropathy. 3. Recurrent TIA. 4. Stroke. 5. Coronary artery disease. 6. Essential tremor. 7. Depression. 8. History of septic arthritis, knee. 9. Hypertension. 10. Traumatic brain injury. 11. Left great toe partial amputation 04/24/18. ALLERGIES: No known drug allergies. MEDICATIONS: 1. Tylenol. 2. Heparin subcutaneous injection. 3. Insulin regular. 4. Zosyn 3.375 g every 6 hours. SOCIAL HISTORY: Lives in [place] with his . He has no travel or sick contacts. He is a nonsmoker. FAMILY HISTORY: No current infections. REVIEW OF SYSTEMS: All negative to 14-point review of systems except as noted above in the history of present illness. PHYSICAL EXAM: Vital Signs: Temperature 36.7, heart rate 70, respiratory rate 17, blood pressure 136/67, oxygen saturation 97% on room air. In general, he is awake not in distress. Neurologic: He is oriented x3. Follows commands. He has decreased sensation to light touch in both feet. HEENT: There is no conjunctival hemorrhage. Oropharynx without lesions. Neck is supple without mass. Heart: Regular rate and rhythm without murmurs, rubs, or gallops. Lungs : Clear to auscultation bilaterally. Abdomen: Soft, nontender, nondistended. There is bowel sounds present. Skin: There is no rashes, or splinter hemorrhage. Musculoskeletal: There is 1+ dorsalis pedis pulse on the left. The great toe is partially absent. The amputation stump, there is open wound with some fibrinous material, serous drainage, surrounding erythema and edema. LABORATORY DATA: White blood cell count 5, hemoglobin 11.4, platelets 124, creatinine 0.9, glucose was 534 on admission. CRP 113. Please see impression and recommendations as outlined above. Thanks for asking me to see Mr. Doty in consultation. [id number]/CPS #: [id number] MTDD
--- NOTE | 2018-05-28 13:29 | PN ---
Objective Active Medications: Acetaminophen (Tylenol Tab*) 650 mg PO Q6H PRN PRN Reason: PAIN OR TEMPERATURE Dextrose (D50w Syringe 50 Ml*) 12.5 gm IV PUSH .FOR FS < 60 - SS PRN PRN Reason: FS < 60 Diphenhydramine HCl (Benadryl Iv*) 25 mg IV Q6H PRN PRN Reason: PRURITIS Heparin Sodium (Porcine) (Heparin Vial(*)) 5,000 units SUBCUT Q8H [facility] Stop: 05/28/18 23:59 Last Admin: 05/28/18 11:15 Dose: 5,000 units Lactated Ringer's (Lactated Ringers 1000 Ml Bag*) 1,000 mls @ 75 mls/hr IV PER RATE [facility] Last Admin: 05/28/18 06:13 Dose: 75 mls/hr Piperacillin Sod/Tazobactam (Sod 3.375 gm/ Sodium Chloride) 100 mls @ 200 mls/ hr IVPB Q6H [facility] Last Admin: 05/28/18 10:12 Dose: 200 mls/hr Insulin Human Lispro (Humalog*) 0 units SUBCUT Q4H [facility]; Protocol Last Admin: 05/28/18 12:25 Dose: 12 units Ondansetron HCl (Zofran Inj*) 4 mg IV Q6H PRN PRN Reason: NAUSEA Vital Signs - 8 hr 05/28/18 05/28/18 05/28/18 07:12 08:00 11:51 Temperature 98.1 F 98.6 F Pulse Rate 72 73 Respiratory 17 18 17 Rate Blood Pressure 136/67 132/71 (mmHg) O2 Sat by Pulse 97 98 Oximetry Oxygen Devices in Use Now: None Result Diagrams: 05/28/18 10:49 05/28/18 10:49 Assess/Plan/Problems-Billing Assessment: Mr. Doty is a 62-year-old male with a past medical history of insulin-dependent type 2 diabetes, recent diagnosis of critical limb ischemia, status post revascularization now is status post left great big toe amputation in which he has been followed by the orthopedic team, found to have a non- healing wound and concern for infection who was direct admitted by the orthopedic team for IV antibiotics and possible further surgical intervention. - Patient Problems (1) Non-healing open wound of toe Comment: - Dispo per Orth Team - (2) Acute kidney injury Comment: Resolved with IVFs (3) Peripheral arterial disease Comment: - Hx of claudication s/p revascularzation March 2018 (4) Diabetes mellitus Comment: - Continue lispro SS and adjust based on sugars (5) DVT prophylaxis Comment: (6) Full code status Status and Disposition: inpatient. Dispo per Ortho team. Hospital Medicine will follow along for co- medical management
[2018-05-28] MEDS ORDERED: Insulin GLARGINE(*) 1 UNITS UNIT SUBCUT ONE (13:57)
[2018-05-28] MEDS ORDERED: Buffered Lidocaine 0.9% SYRIN* 5 ML/SYR SYRINGE INTRADERM ONE (15:19)
[2018-05-29] MEDS: Insulin LISPRO* 1 UNITS UNIT SUBCUT SCH ×6 (00:27→20:51)
[2018-05-29] MEDS: ZOSYN 3.375 GM Q6H - Intermittant 30 min Infusion IVPB SCH ×8 (04:12→21:06)
[2018-05-29 05:41] LABS: ABS Basophils 0 10^3/ul (0-0.2); ABS Eosinophils 0.2 10^3/ul (0-0.6); ABS Lymphocytes 0.9 10^3/ul (1.0-4.8); ABS Monocytes 0.6 10^3/ul (0-0.8); ABS Neutrophils 2.9 10^3/ul (1.5-7.7); ABS Nucleated RBC 0 10^3/ul; Eosinophil % 4.6 % (0-6); Hematocrit 33 % (42-52); Hemoglobin 11.7 g/dl (14.0-18.0); Lymphocyte % 20.1 % (25-47); Mean Corpuscular HGB Conc 36 g/dl (31-36); Mean Corpuscular Hemoglobin 31 pg (27-31); Mean Corpuscular Volume 86 fL (80-94); Nucleated Red Blood Cells % 0.2; Platelet Count 152 10^3/ul (150-450); Red Blood Count 3.84 10^6/ul (4.00-5.40); Red Cell Distribution Width 12 % (10.5-15); White Blood Count 4.7 10^3/ul (3.5-10.8)
[2018-05-29 05:51] LABS: INR 0.94 (0.77-1.02)
[2018-05-29 05:58] LABS: EGFR Non-African American 87.2 (>60)
--- NOTE | 2018-05-29 09:12 | PN ---
Subjective Date of Service: 05/29/18 Interval History: Patient reports he feels "pretty good today" reporting he slept well. He denies any pain, no fever/chills. No N/V/D. Objective Active Medications: Acetaminophen (Tylenol Tab*) 650 mg PO Q6H PRN PRN Reason: PAIN OR TEMPERATURE Dextrose (D50w Syringe 50 Ml*) 12.5 gm IV PUSH .FOR FS < 60 - SS PRN PRN Reason: FS < 60 Diphenhydramine HCl (Benadryl Iv*) 25 mg IV Q6H PRN PRN Reason: PRURITIS Lactated Ringer's (Lactated Ringers 1000 Ml Bag*) 1,000 mls @ 75 mls/hr IV PER RATE [facility] Last Admin: 05/29/18 00:29 Dose: 75 mls/hr Piperacillin Sod/Tazobactam (Sod 3.375 gm/ Sodium Chloride) 100 mls @ 200 mls/ hr IVPB Q6H [facility] Last Admin: 05/29/18 04:12 Dose: 200 mls/hr Lactated Ringer's (Lactated Ringers 1000 Ml Bag*) 1,000 mls @ 125 mls/hr IV PER RATE [facility] Last Admin: 05/29/18 06:53 Dose: 125 mls/hr Insulin Human Lispro (Humalog*) 0 units SUBCUT Q4H [facility]; Protocol Last Admin: 05/29/18 04:14 Dose: 3 units Ondansetron HCl (Zofran Inj*) 4 mg IV Q6H PRN PRN Reason: NAUSEA Vital Signs - 8 hr 05/29/18 05/29/18 04:24 07:26 Temperature 98.0 F 98.2 F Pulse Rate 68 71 Respiratory 16 16 Rate Blood Pressure 135/75 105/64 (mmHg) O2 Sat by Pulse 97 100 Oximetry Oxygen Devices in Use Now: None Appearance: A+O x3 62 yo male sitting up on the side of thebed reading on his computer in NAD Eyes: No Scleral Icterus, PERRLA Ears/Nose/Mouth/Throat: NL Teeth, Lips, Gums, Mucous Membranes Moist Neck: NL Appearance and Movements; NL JVP Respiratory: Symmetrical Chest Expansion and Respiratory Effort, Clear to Auscultation Cardiovascular: NL Sounds; No Murmurs; No JVD, RRR, No Edema Abdominal: NL Sounds; No Tenderness; No Distention, - - obese Extremities: - - left great toe/foot wrapped in CD+I dressing with no noted drainage. LE warm, pink and well perfused. Neurological: Alert and Oriented x 3, NL Sensation, NL Muscle Strength and Tone Lines/Tubes/Other Access: Clean, Dry and Intact Peripheral IV Nutrition: - - NPO Result Diagrams: 05/29/18 05:06 05/29/18 05:06 Microbiology and Other Data: Microbiology 05/28/18 10:20 Skin and Soft Tissue MRSA/MSSA (PCR - Final Toe Mrsa Negative S.aureus Positive Gram Stain - Final Assess/Plan/Problems-Billing Assessment: Mr. Doty is a 62-year-old male with a past medical history of insulin-dependent type 2 diabetes, recent diagnosis of critical limb ischemia, status post revascularization now is status post left great big toe amputation in which he has been followed by the orthopedic team, found to have a non- healing wound and concern for infection who was direct admitted by the orthopedic team for IV antibiotics and possible further surgical intervention. - Patient Problems (1) Non-healing open wound of toe Comment: - Dispo per Orth Team - ID following - recommends continue zosyn, cx sent - also will await intraoperative cx - Plan for OR today - NPO (2) Acute kidney injury Comment: Resolved with IVFs (3) Peripheral arterial disease Comment: - Hx of claudication s/p revascularzation March 2018 - Hold plavix/ASA for surgery - restarting when cleared by Ortho post-op (4) Diabetes mellitus Comment: - FSBG Q4hrs with lispro SS (5) DVT prophylaxis Comment: HSQ (6) Full code status Status and Disposition: inpatient. Dispo per Ortho team. Hospital Medicine will follow along for co- medical management
[2018-05-29] MEDS ORDERED: Insulin REGULAR(*) 1 UNITS UNIT ONE (13:08)
[2018-05-29] MEDS ORDERED: Lidocaine 2% PF * 5 ML VIAL ONE ×2 (13:26→15:03)
[2018-05-29] MEDS ORDERED: ROPIVACAINE 5 MG/ML 30 ML BTL (0.5%) ONE (13:26)
[2018-05-29] MEDS ORDERED: Propofol* 10 MG/ML 20 ML BTL IV PUSH ONE (15:03)
[2018-05-29] MEDS ORDERED: Midazolam* 1 MG/ML 2 ML VIAL (2 MG) ONE (15:27)
[2018-05-29] MEDS ORDERED: Acetaminophen TAB* 325 MG PO PRN (15:31)
[2018-05-29] MEDS ORDERED: Naloxone* 0.4 MG/ML 1 ML VIAL IV PRN (15:31)
[2018-05-29] MEDS ORDERED: Ondansetron INJ* 2 MG/ML VIAL IV PRN (15:31)
[2018-05-29] MEDS ORDERED: fentaNYL* 50 MCG/ML 2 ML VIAL (100 MCG VIAL) IV PRN (15:31)
[2018-05-29] MEDS ORDERED: oxyCODONE TAB* 5 MG TAB PO PRN ×2 (17:02)
[2018-05-29] MEDS ORDERED: Morphine INJ* 2 MG/ML 1 ML SYRINGE (TWO MG - NEW SYRINGE VERSION) IV PRN (17:03)
[2018-05-29 18:04] LABS: ABS Basophils 0 10^3/ul (0-0.2); ABS Eosinophils 0.2 10^3/ul (0-0.6); ABS Lymphocytes 0.7 10^3/ul (1.0-4.8); ABS Monocytes 0.4 10^3/ul (0-0.8); ABS Neutrophils 2.9 10^3/ul (1.5-7.7); ABS Nucleated RBC 0 10^3/ul; Eosinophil % 4.2 % (0-6); Hematocrit 36 % (42-52); Hemoglobin 12.7 g/dl (14.0-18.0); Lymphocyte % 17.4 % (25-47); Mean Corpuscular HGB Conc 35 g/dl (31-36); Mean Corpuscular Hemoglobin 30 pg (27-31); Mean Corpuscular Volume 86 fL (80-94); Mean Platelet Volume 7.7 um3 (7.4-10.4); Nucleated Red Blood Cells % 0.2; Platelet Count 176 10^3/ul (150-450); Red Blood Count 4.21 10^6/ul (4.00-5.40); Red Cell Distribution Width 12 % (10.5-15); White Blood Count 4.2 10^3/ul (3.5-10.8)
[2018-05-29 18:49] LABS: EGFR Non-African American 83.9 (>60)
--- NOTE | 2018-05-29 20:13 | OP ---
Operative Report - Blank - Operative Report Date of Operation: 05/29/18 Note: PATIENT: Price Doty DATE OF : 1955 DATE OF SURGERY: 05/29/2018 SURGEON: Jose Juan King MD SOFTWARE APPLICATIONS DESIGNER: SAIDA Rea, whos assistance was necessary for positioning, retraction, help with instrumentation, and closure. ANESTHESIOLOGIST: Dr. Roldan PREOPERATIVE DIAGNOSIS: Left great toe wound dehiscence, infection and osteomyelitis POSTOPERATIVE DIAGNOSIS: Left great toe wound dehiscence, infection and osteomyelitis OPERATION: 1. Left foot great toe irrigation and debridement 2. Left great toe proximal phalanx bone incision for osteomyelitis 3. Secondary wound closure of left great toe wound ANESTHESIA: MAC IMPLANTS: None TOURNIQUET TIME: None SPECIMENS: Culture swabs and bone sent to microbiology. ESTIMATED BLOOD LOSS: Minimal COMPLICATIONS: none STATUS: Stable from the operating room to the recovery room and then back to the hospital floor INDICATIONS FOR PROCEDURE: Price had a prior partial left great toe amputation for gangrene. He developed dehiscence of the wound and then developed an infection. MRI showed possible early osteomyelitis at the distal aspect of the remaining proximal phalanx. Both operative and non-operative treatment alternatives were reviewed. Further, the nature and risks of surgery were reviewed in careful detail, in the office as well as the pre-operative holding area. Our discussions regarding the risks of surgery included, but were not limited to, persistent or worsening infection , wound problems, nerve injury, neuroma, RSD, persistent symptoms, blood clot, failure of the surgery, need for further amputation, and even the remote chance of catastrophic complication, including loss of limb. DESCRIPTION OF PROCEDURE: The patient was seen in the preoperative holding unit and informed written consent was obtained. The appropriate extremity was marked. The patient was then brought to the operating room and carefully positioned on the operating room table. Anesthesia was induced. All bony prominences were padded with great care. A chlorhexidine based pre-scrub was performed followed by a Betadine prep and drape in standard sterile fashion. A surgical safety pause was then conducted in which we confirmed the appropriate patient, extremity, planned procedure, availability of equipment, indication and administration of antibiotics, and DVT prophylaxis in the form of a compression boot on the non- surgical extremity. I began with Esmarch exsanguination of the limb, avoiding the great toe, and placement of an ankle Esmarch tourniquet. I then ellipsed out the 1 cm x 1 cm ulcer at the tip of the great toe. I then sharply debrided with a 15 blade scalpel all infected and nonviable appearing tissue at the skin, subcutaneous, fascial, tendinous, and periosteal layers. I then incised the bone of the distal aspect of the remaining proximal phalanx. It was soft. Bone and culture swabs were then sent to microbiology. I used a rongeur to remove the distal aspect of the remaining bone. Once all nonviable and infected-appearing tissue was removed, the wound was copiously irrigated with sterile saline. The remaining wound was 4 cm in width. I then closed the wound in a layered fashion utilizing 3-0 Monocryl for the deep layer, dermal layer, and 3-0 nylon for the skin. A sterile dressing was then applied. The patient was then awakened from anesthesia and transferred to the recovery room in stable condition. There were no complications. All needle and sponge counts were correct at the end of the case. ATTESTATION: I attest I was present and scrubbed and performed the critical portions of the procedure myself. POSTOPERATIVE PLAN: He will remain heel weightbearing. Antibiotics will be guided by the infectious disease service.
[2018-05-29 20:21] LABS: INR 0.95 (0.77-1.02)
[2018-05-29] MEDS ORDERED: Insulin GLARGINE(*) 1 UNITS UNIT SUBCUT ONE (20:45)
[2018-05-29] MEDS ORDERED: Insulin LISPRO* 1 UNITS UNIT SUBCUT ONE (20:46)
[2018-05-29] MEDS ORDERED: Dextrose 50% Syringe 50 ML* 25 GM/50 ML SYRINGE IV PUSH PRN (20:46)
[2018-05-30] MEDS ORDERED: Dextrose 50% Syringe 50 ML* 25 GM/50 ML SYRINGE IV PUSH PRN ×2 (01:42→13:04)
[2018-05-30] MEDS ORDERED: Insulin LISPRO* 1 UNITS UNIT SUBCUT ONE ×2 (01:42→13:04)
[2018-05-30] MEDS: Insulin LISPRO* 1 UNITS UNIT SUBCUT SCH ×6 (01:43→21:55)
[2018-05-30] MEDS: ZOSYN 3.375 GM Q6H - Intermittant 30 min Infusion IVPB SCH ×2 (03:56)
[2018-05-30 05:37] LABS: ABS Basophils 0 10^3/ul (0-0.2); ABS Eosinophils 0.2 10^3/ul (0-0.6); ABS Lymphocytes 0.8 10^3/ul (1.0-4.8); ABS Monocytes 0.7 10^3/ul (0-0.8); ABS Nucleated RBC 0 10^3/ul; Eosinophil % 3.9 % (0-6); Hematocrit 32 % (42-52); Hemoglobin 11.4 g/dl (14.0-18.0); Lymphocyte % 13.5 % (25-47); Mean Corpuscular HGB Conc 35 g/dl (31-36); Mean Corpuscular Hemoglobin 30 pg (27-31); Mean Corpuscular Volume 86 fL (80-94); Mean Platelet Volume 7.7 um3 (7.4-10.4); Nucleated Red Blood Cells % 0.1; Platelet Count 163 10^3/ul (150-450); Red Blood Count 3.75 10^6/ul (4.00-5.40); Red Cell Distribution Width 13 % (10.5-15); White Blood Count 5.8 10^3/ul (3.5-10.8)
[2018-05-30 05:40] LABS: EGFR Non-African American 75.2 (>60)
--- NOTE | 2018-05-30 08:42 | PN ---
Subjective Date of Service: 05/30/18 Interval History: Pt reports he is feeling "pretty good today" doesn't have any c/o other having to be in the hospital. He denies any pain. no fevers or chills. Reports good appetite. No N/V/D. Objective Active Medications: Acetaminophen (Tylenol Tab*) 650 mg PO Q6H PRN PRN Reason: PAIN OR TEMPERATURE Dextrose (D50w Syringe 50 Ml*) 12.5 gm IV PUSH .FOR FS < 60 - SS PRN PRN Reason: FS < 60 Diphenhydramine HCl (Benadryl Iv*) 25 mg IV Q6H PRN PRN Reason: PRURITIS Heparin Sodium (Porcine) (Heparin Vial(*)) 5,000 units SUBCUT Q8HR [facility] Lactated Ringer's (Lactated Ringers 1000 Ml Bag*) 1,000 mls @ 75 mls/hr IV PER RATE [facility] Last Admin: 05/29/18 00:29 Dose: 75 mls/hr Piperacillin Sod/Tazobactam (Sod 3.375 gm/ Sodium Chloride) 100 mls @ 200 mls/ hr IVPB Q6H [facility] Last Admin: 05/30/18 03:56 Dose: 200 mls/hr Lactated Ringer's (Lactated Ringers 1000 Ml Bag*) 1,000 mls @ 125 mls/hr IV PER RATE [facility] Last Admin: 05/30/18 02:00 Dose: 125 mls/hr Insulin Human Lispro (Humalog*) 0 units SUBCUT Q4H [facility]; Protocol Last Admin: 05/30/18 07:26 Dose: Not Given Morphine Sulfate (Morphine Inj ((Syringe))*) 2 mg IV Q2H PRN PRN Reason: PAIN - BREAKTHROUGH Ondansetron HCl (Zofran Inj*) 4 mg IV Q6H PRN PRN Reason: NAUSEA Oxycodone HCl (Roxycodone Tab*) 5 mg PO Q4H PRN PRN Reason: PAIN - MODERATE Oxycodone HCl (Roxycodone Tab*) 10 mg PO Q4H PRN PRN Reason: PAIN - SEVERE Vital Signs - 8 hr 05/30/18 05/30/18 03:58 07:14 Temperature 98.9 F 97.7 F Pulse Rate 85 80 Respiratory 18 16 Rate Blood Pressure 128/63 175/83 (mmHg) O2 Sat by Pulse 95 100 Oximetry Oxygen Devices in Use Now: None Appearance: 62 yo male laying in bed resting in NAD. A+O x3 Eyes: No Scleral Icterus, PERRLA Ears/Nose/Mouth/Throat: NL Teeth, Lips, Gums, Mucous Membranes Moist Neck: NL Appearance and Movements; NL JVP Respiratory: Symmetrical Chest Expansion and Respiratory Effort, Clear to Auscultation Cardiovascular: NL Sounds; No Murmurs; No JVD, RRR, No Edema Abdominal: NL Sounds; No Tenderness; No Distention Extremities: - - left foot in CD+I dressing with lona wrap - LE above dressing warm and well perfused. Neurological: Alert and Oriented x 3 Lines/Tubes/Other Access: Clean, Dry and Intact Peripheral IV Nutrition: Taking PO's Result Diagrams: 05/30/18 05:05 05/30/18 05:05 Microbiology and Other Data: Microbiology 05/28/18 10:20 Skin and Soft Tissue MRSA/MSSA (PCR - Final Toe Mrsa Negative S.aureus Positive Gram Stain - Final Assess/Plan/Problems-Billing Assessment: Mr. Doty is a 62-year-old male with a past medical history of insulin-dependent type 2 diabetes, recent diagnosis of critical limb ischemia, status post revascularization now is status post left great big toe amputation in which he has been followed by the orthopedic team, found to have a non- healing wound and concern for infection who was direct admitted by the orthopedic team for IV antibiotics and possible further surgical intervention. - Patient Problems (1) Non-healing open wound of toe Comment: - Dispo per Orth Team - POD #1 - ID following - discussed with ID - switch abx to Ancef 2gms Q8hr - cx growing staph aureus (2) Acute kidney injury Comment: Resolved with IVFs (3) Peripheral arterial disease Comment: - Hx of claudication s/p revascularzation March 2018 - Hold plavix/ASA for surgery - restarting when cleared by Ortho post-op (4) Diabetes mellitus Comment: - FSBG ACHS with lispro SS - was hyperglycemic last evening > 400 and was given Lantus 10 units along with extra lispro. Better control today - pt fasting BG 70 he reports he felt a symptomatic and ate a granola bar - will plan to continue FSBH ACHS and add lantus 5 units at bedtime. - Hold pts insulin pump (5) DVT prophylaxis Comment: HSQ (6) Full code status Status and Disposition: inpatient. Dispo per Ortho team. Hospital Medicine will follow along for co- medical management. Plan for IV abx.
[2018-05-30] MEDS: ceFAZolin 2 GM PREMIX in ORs 2 GM/50 ML BAG IVPB SCH ×2 (09:56→17:41)
[2018-05-30] MEDS ORDERED: Heparin VIAL(*) 5000 UNITS/ML VIAL (FIVE THOUSAND) SUBCUT SCH (12:00)
[2018-05-30] MEDS ORDERED: Aspirin 81 mg CHEW TAB* 81 MG TAB.CHEW PO ONE (12:40)
--- NOTE | 2018-05-30 13:12 | PN ---
Progress Note - Progress Note Date of Service: 05/30/18 SOAP: Subjective: [Pt seen sitting up in bed today. He states that he is doing well. Finds that his pain is manageable. Denies any chest pain, sob, nausea, vomiting. ] Objective: [General: A&O x3, NAD MSK, LLE: Dressing is CDI. + df/pf. bilateral lower extremities are tender to palpation, they do not appear swollen or red. ] Vital Signs Temp 97.9 F 05/30/18 11:29 Pulse 84 05/30/18 11:29 Resp 16 05/30/18 11:29 BP 145/60 05/30/18 11:29 Pulse Ox 100 05/30/18 11:29 Intake & Output 05/29/18 05/30/18 05/30/18 18:59 06:59 18:59 Intake Total 2273 3284 1335 Output Total 0 600 Balance 2273 2684 1335 Weight 180 lb Intake: IV Fluids 2273 1234 1035 ABX - PIPERACILLIN 200 200 55 LR 2073 1004 980 NS (0.9%) 30 Oral 0 2050 300 Output: Urine 0 600 Other: Estimated Void Medium # Bowel Movements 3 Estimated Stool Amount Medium # Voids 3 Assessment: [POD 1 1. Left foot great toe irrigation and debridement 2. Left great toe proximal phalanx bone incision for osteomyelitis 3. Secondary wound closure of left great toe wound] Plan: [obtain us of bilateral lower extremities due to pain on palpation to rule out DVT Continue with current pain medication Continue with current abx Psych consult as the pts group billing coordinator requested a consult before discharge Possible discharge tomorrow. ]
--- NOTE | 2018-05-30 15:40 | RAD ---
INDICATION: Pain and swelling. COMPARISON: None TECHNIQUE: Duplex interrogation of the both lower extremities was performed. FINDINGS: Deep veins: The common femoral, great saphenous, profunda femoris, proximal, mid, and distal deep femoral, popliteal, posterior tibial, and peroneal veins are patent bilaterally. There is normal compressibility, augmentation, and phasic flow. Superficial veins: There are no findings of superficial thrombophlebitis. Popliteal fossa:There is no evidence of a popliteal cyst. Soft tissues:There is bilateral dependent edema. IMPRESSION: BILATERAL LOWER EXTREMITY IMAGING DEMONSTRATES NO EVIDENCE OF ACUTE DEEP VENOUS THROMBOSIS.
[2018-05-30] MEDS: Clopidogrel TAB* 75 MG PO SCH (17:41)
[2018-05-30] MEDS ORDERED: Insulin GLARGINE(*) 1 UNITS UNIT SUBCUT SCH (21:00)
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
[2018-05-30] MEDS: amLODIPine TAB* 5 MG PO SCH (21:48)
[2018-05-30] MEDS: Heparin VIAL(*) 5000 UNITS/ML VIAL (FIVE THOUSAND) SUBCUT SCH (21:52)
[2018-05-31] MEDS: ceFAZolin 2 GM PREMIX in ORs 2 GM/50 ML BAG IVPB SCH ×3 (02:53→18:00)
[2018-05-31 06:06] LABS: ABS Basophils 0.1 10^3/ul (0-0.2); ABS Eosinophils 0.2 10^3/ul (0-0.6); ABS Lymphocytes 0.5 10^3/ul (1.0-4.8); ABS Monocytes 0.6 10^3/ul (0-0.8); ABS Neutrophils 3.6 10^3/ul (1.5-7.7); ABS Nucleated RBC 0 10^3/ul; Eosinophil % 4.6 % (0-6); Hematocrit 34 % (42-52); Lymphocyte % 9.1 % (25-47); Mean Corpuscular HGB Conc 35 g/dl (31-36); Mean Corpuscular Hemoglobin 30 pg (27-31); Mean Corpuscular Volume 85 fL (80-94); Mean Platelet Volume 7.9 um3 (7.4-10.4); Nucleated Red Blood Cells % 0.2; Platelet Count 173 10^3/ul (150-450); Red Blood Count 4.03 10^6/ul (4.00-5.40); Red Cell Distribution Width 13 % (10.5-15); White Blood Count 4.9 10^3/ul (3.5-10.8)
[2018-05-31] MEDS: Heparin VIAL(*) 5000 UNITS/ML VIAL (FIVE THOUSAND) SUBCUT SCH ×3 (06:09→20:30)
[2018-05-31 06:28] LABS: EGFR Non-African American 74.4 (>60)
[2018-05-31] MEDS: Insulin LISPRO* 1 UNITS UNIT SUBCUT SCH ×4 (10:02→20:32)
[2018-05-31] MEDS: Aspirin 81 mg CHEW TAB* 81 MG TAB.CHEW PO SCH (10:02)
[2018-05-31] MEDS: amLODIPine TAB* 5 MG PO SCH (10:02)
--- NOTE | 2018-05-31 10:35 | PN ---
Subjective Date of Service: 05/31/18 Interval History: Patient seen and examined. No acute overnight events. Patient states his mood is "ok", denies SI. No pain, ambulating with assistance. Denies SOB, no chest pain, no fevers or chills. Sugars have been labile. at bedside. Objective Active Medications: Acetaminophen (Tylenol Tab*) 650 mg PO Q6H PRN PRN Reason: PAIN OR TEMPERATURE Amlodipine Besylate (Norvasc Tab*) 5 mg PO QAM [facility] Last Admin: 05/31/18 10:02 Dose: 5 mg Aspirin (Aspirin 81 Mg Chew Tab*) 81 mg PO QAM [facility] Last Admin: 05/31/18 10:02 Dose: 81 mg Clopidogrel Bisulfate (Plavix Tab*) 75 mg PO QPM [facility] Last Admin: 05/30/18 17:41 Dose: 75 mg Dextrose (D50w Syringe 50 Ml*) 12.5 gm IV PUSH .FOR FS < 60 - SS PRN PRN Reason: FS < 60 Diphenhydramine HCl (Benadryl Iv*) 25 mg IV Q6H PRN PRN Reason: PRURITIS Heparin Sodium (Porcine) (Heparin Vial(*)) 5,000 units SUBCUT 0500,1300,2100 [facility] Last Admin: 05/31/18 06:09 Dose: 5,000 units Cefazolin Sodium/Dextrose (Kefzol 2 Gm Premix(*)) 2 gm in 50 mls @ 200 mls/hr IVPB Q8H [facility] Last Admin: 05/31/18 10:02 Dose: 200 mls/hr Insulin Human Lispro (Humalog*) 0 units SUBCUT [facility]; Protocol Last Admin: 05/31/18 10:02 Dose: 12 units Morphine Sulfate (Morphine Inj ((Syringe))*) 2 mg IV Q2H PRN PRN Reason: PAIN - BREAKTHROUGH Ondansetron HCl (Zofran Inj*) 4 mg IV Q6H PRN PRN Reason: NAUSEA Oxycodone HCl (Roxycodone Tab*) 5 mg PO Q4H PRN PRN Reason: PAIN - MODERATE Oxycodone HCl (Roxycodone Tab*) 10 mg PO Q4H PRN PRN Reason: PAIN - SEVERE Vital Signs - 8 hr 05/31/18 05/31/18 04:13 07:24 Temperature 98.3 F 97.8 F Pulse Rate 83 78 Respiratory 16 16 Rate Blood Pressure 137/71 138/66 (mmHg) O2 Sat by Pulse 98 97 Oximetry Oxygen Devices in Use Now: None Appearance: Alert, NAD Ears/Nose/Mouth/Throat: Mucous Membranes Moist, - - edentulous Neck: NL Appearance and Movements; NL JVP Respiratory: Symmetrical Chest Expansion and Respiratory Effort, Clear to Auscultation Cardiovascular: NL Sounds; No Murmurs; No JVD, RRR, No Edema Extremities: No Edema, - - dressing CDI Neurological: Alert and Oriented x 3, NL Sensation Nutrition: Taking PO's Result Diagrams: 05/31/18 05:13 05/31/18 05:13 Microbiology and Other Data: Microbiology 05/28/18 10:20 Skin and Soft Tissue MRSA/MSSA (PCR - Final Toe Mrsa Negative S.aureus Positive Gram Stain - Final Assess/Plan/Problems-Billing Assessment: This is a 62-year-old male with a past medical history of insulin-dependent type 2 diabetes, recent diagnosis of critical limb ischemia with recent revascularization, was directly admitted by the orthopedic team for IV antibiotics and surgical intervention, currently now is status post left great toe amputation. - Patient Problems (1) Non-healing open wound of toe Code(s): S91.109A - UNSP OPEN WOUND OF UNSP TOE(S) W/O DAMAGE TO NAIL, INIT SNOMED Code(s): 513180782 Comment: - POD2 left great toe debridement and amputation up to the proximal phalynx - POC as per ortho - ID following, abx to Ancef 2gms Q8hr - cx growing staph aureus (2) Depression Code(s): F32.9 - MAJOR DEPRESSIVE DISORDER, SINGLE EPISODE, UNSPECIFIED SNOMED Code(s): 88380987 Comment: - Making passive suicidal statements, has long history of MDD - Seen by psych who will re-evaluate Saturday - Patient contracts for safety - Patient has been off his wellbutrin and zoloft for several weeks. Will check with psych today, but I highly recommend he re-start during this admission, as this is likely contributing to his current depressed mood (3) Acute kidney injury Code(s): N17.9 - ACUTE KIDNEY FAILURE, UNSPECIFIED SNOMED Code(s): 13185167 Comment: - Resolved with IVFs (4) Diabetes mellitus Code(s): E11.9 - TYPE 2 DIABETES MELLITUS WITHOUT COMPLICATIONS SNOMED Code(s) : 44555802 Comment: - Sugars labile - Will allow patient to use home insulin pump (humalog 30units continuous Q24h ) and cover as needed AC and HS per lispro SS (5) Peripheral arterial disease Code(s): I73.9 - PERIPHERAL VASCULAR DISEASE, UNSPECIFIED SNOMED Code(s): 608581934 Comment: - Hx of claudication s/p revascularzation March 2018 - Restart ASA/plavix when cleared by Ortho post-op (6) DVT prophylaxis Code(s): JVN4932 - SNOMED Code(s): 452858371 Comment: - HSQ (7) Full code status Code(s): Z78.9 - OTHER SPECIFIED HEALTH STATUS SNOMED Code(s): 271498272 Status and Disposition: Remain inpatient, IV atbx as per ID. If plan for BHU, cannot go with PICC line.
[2018-05-31] MEDS ORDERED: Insulin LISPRO* FOR INSULIN PUMP SUBCUT SCH (12:00)
[2018-05-31] MEDS: Clopidogrel TAB* 75 MG PO SCH (18:00)
--- NOTE | 2018-05-31 19:41 | PN ---
Progress Note - Progress Note Date of Service: 05/31/18 SOAP: Subjective: Pt seen and examined at bedside. No complaint of pain. Denies CP, SOB, F/C. Vital Signs: Temp Pulse Resp BP Pulse Ox 98.3 F 89 18 103/53 99 05/31/18 16:11 05/31/18 16:11 05/31/18 16:11 05/31/18 16:11 05/31/18 16:11 Laboratory Last Values WBC 4.9 10^3/ul (3.5-10.8) 05/31/18 05:13 RBC 4.03 10^6/ul (4.00-5.40) 05/31/18 05:13 Hgb 12.0 g/dl (14.0-18.0) L 05/31/18 05:13 Hct 34 % (42-52) L 05/31/18 05:13 MCV 85 fL (80-94) 05/31/18 05:13 MCH 30 pg (27-31) 05/31/18 05:13 MCHC 35 g/dl (31-36) 05/31/18 05:13 RDW 13 % (10.5-15) 05/31/18 05:13 Plt Count 173 10^3/ul (150-450) 05/31/18 05:13 MPV 7.9 um3 (7.4-10.4) 05/31/18 05:13 Neut % (Auto) 72.1 % (38-83) 05/31/18 05:13 Lymph % (Auto) 9.1 % (25-47) L 05/31/18 05:13 [place] % (Auto) 13.1 % (0-7) H 05/31/18 05:13 Eos % (Auto) 4.6 % (0-6) 05/31/18 05:13 Baso % (Auto) 1.1 % (0-2) 05/31/18 05:13 Absolute Neuts (auto) 3.6 10^3/ul (1.5-7.7) 05/31/18 05:13 Absolute Lymphs (auto) 0.5 10^3/ul (1.0-4.8) L 05/31/18 05:13 Absolute Monos (auto) 0.6 10^3/ul (0-0.8) 05/31/18 05:13 Absolute Eos (auto) 0.2 10^3/ul (0-0.6) 05/31/18 05:13 Absolute Basos (auto) 0.1 10^3/ul (0-0.2) 05/31/18 05:13 Absolute Nucleated RBC 0 10^3/ul 05/31/18 05:13 Nucleated RBC % 0.2 05/31/18 05:13 ESR 86 mm/Hr (0-20) H 05/27/18 18:39 INR (Anticoag Therapy) 0.95 (0.77-1.02) 05/29/18 20:08 APTT 33.2 seconds (26.0-36.3) 05/29/18 20:08 Sodium 134 mmol/L (135-145) L 05/31/18 05:13 Potassium 5.3 mmol/L (3.5-5.0) H 05/31/18 05:13 Chloride 100 mmol/L (101-111) L 05/31/18 05:13 Carbon Dioxide 28 mmol/L (22-32) 05/31/18 05:13 Anion Gap 6 mmol/L (2-11) 05/31/18 05:13 BUN 8 mg/dL (6-24) 05/31/18 05:13 Creatinine 1.01 mg/dL (0.67-1.17) 05/31/18 05:13 Est GFR ( Amer) 90.0 (>60) 05/31/18 05:13 Est GFR (Non-Af Amer) 74.4 (>60) 05/31/18 05:13 BUN/Creatinine Ratio 7.9 (8-20) L 05/31/18 05:13 Glucose 376 mg/dL (70-100) H 05/31/18 12:57 POC Glucose (mg/dL) 241 mg/dL (70-100) H 05/31/18 17:35 Glucose Meter Confirm 448 mg/dL (70-100) H 05/30/18 01:13 Lactic Acid 2.0 mmol/L (0.5-2.0) 05/27/18 19:19 Calcium 9.5 mg/dL (8.6-10.3) 05/31/18 05:13 Magnesium 2.1 mg/dL (1.9-2.7) 05/29/18 05:06 C-Reactive Protein 113.09 mg/L (<8.01) H 05/27/18 18:39 Objective: Dressing C/D/I, NVI Assessment: s/p left great toe I&D Plan: Pain control Doppler negative for DVT Continue current Abx Appreciate Psych input
[2018-06-01] MEDS: ceFAZolin 2 GM PREMIX in ORs 2 GM/50 ML BAG IVPB SCH (03:06)
[2018-06-01] MEDS: Heparin VIAL(*) 5000 UNITS/ML VIAL (FIVE THOUSAND) SUBCUT SCH ×3 (05:39→20:55)
[2018-06-01 05:47] LABS: ABS Basophils 0 10^3/ul (0-0.2); ABS Eosinophils 0.3 10^3/ul (0-0.6); ABS Lymphocytes 0.8 10^3/ul (1.0-4.8); ABS Monocytes 0.7 10^3/ul (0-0.8); ABS Neutrophils 3.4 10^3/ul (1.5-7.7); ABS Nucleated RBC 0 10^3/ul; Eosinophil % 5.7 % (0-6); Hematocrit 32 % (42-52); Hemoglobin 11.7 g/dl (14.0-18.0); Lymphocyte % 14.6 % (25-47); Mean Corpuscular HGB Conc 36 g/dl (31-36); Mean Corpuscular Hemoglobin 31 pg (27-31); Mean Corpuscular Volume 85 fL (80-94); Mean Platelet Volume 7.8 um3 (7.4-10.4); Nucleated Red Blood Cells % 0.5; Platelet Count 171 10^3/ul (150-450); Red Blood Count 3.79 10^6/ul (4.00-5.40); Red Cell Distribution Width 12 % (10.5-15); White Blood Count 5.3 10^3/ul (3.5-10.8)
[2018-06-01] MEDS: Insulin LISPRO* 1 UNITS UNIT SUBCUT SCH ×4 (07:39→20:54)
[2018-06-01] MEDS: Cefepime 1 GM in Dextrose(*) 1 GM/50 ML BAG IV SCH ×2 (09:11→20:54)
[2018-06-01] MEDS: amLODIPine TAB* 5 MG PO SCH (09:11)
[2018-06-01] MEDS: LAMOTRIGINE 200 MG PO SCH (09:11)
[2018-06-01] MEDS: Aspirin 81 mg CHEW TAB* 81 MG TAB.CHEW PO SCH (09:11)
[2018-06-01] MEDS: Sertraline* 100 MG TAB PO SCH (09:11)
[2018-06-01] MEDS: Diphenoxylat/Atrop 2.5-0.025M* 1 TAB PO PRN (09:52)
--- NOTE | 2018-06-01 10:11 | PN ---
Progress Note - Progress Note Date of Service: 06/01/18 SOAP: Subjective: Pt seen and examined at bedside. No complaint of pain. Denies CP, SOB, F/C. Objective: A&O x3, NAD Dressing C/D/I, NVI, Calf non tender. Vital Signs Temp 97.9 F 06/01/18 08:10 Pulse 73 06/01/18 08:10 Resp 18 06/01/18 09:52 BP 115/62 06/01/18 08:10 Pulse Ox 100 06/01/18 08:10 Intake & Output 05/31/18 06/01/18 06/01/18 18:59 06:59 18:59 Intake Total 1000 1291 360 Output Total 0 0 Balance 1000 1291 360 Intake: IV Fluids 25 NS (0.9%) 25 IVPB 56 ABX - CEFAZOLIN 56 Oral 1000 1210 360 Output: Urine 0 0 Other: Estimated Void Medium Medium Date of Last Bowel 06/01/18 Movement # Bowel Movements 1 Estimated Stool Amount Medium # Voids 3 1 Assessment: s/p left great toe I&D Plan: Pain control Continue current Abx Psych meds restarted per hospitalist Will continue to monitor
--- NOTE | 2018-06-01 12:25 | PN ---
Subjective Date of Service: 06/01/18 Interval History: Patient seen and examined. Feeling well, denies fevers or chills. Ambulating on heel on affected side with walker for assistance. States his mood is improving, contracted for safety. Denies SOB, no chest pain, surgical pain well tolerated. Objective Active Medications: Acetaminophen (Tylenol Tab*) 650 mg PO Q6H PRN PRN Reason: PAIN OR TEMPERATURE Amlodipine Besylate (Norvasc Tab*) 5 mg PO QAM [facility] Last Admin: 06/01/18 09:11 Dose: 5 mg Aspirin (Aspirin 81 Mg Chew Tab*) 81 mg PO QAM [facility] Last Admin: 06/01/18 09:11 Dose: 81 mg Clopidogrel Bisulfate (Plavix Tab*) 75 mg PO QPM [facility] Last Admin: 05/31/18 18:00 Dose: 75 mg Dextrose (D50w Syringe 50 Ml*) 12.5 gm IV PUSH .FOR FS < 60 - SS PRN PRN Reason: FS < 60 Diphenhydramine HCl (Benadryl Iv*) 25 mg IV Q6H PRN PRN Reason: PRURITIS Diphenoxylate HCl/Atropine (Lomotil Tab*) 1 tab PO BID PRN PRN Reason: DIARRHEA Last Admin: 06/01/18 09:52 Dose: 1 tab Heparin Sodium (Porcine) (Heparin Vial(*)) 5,000 units SUBCUT 0500,1300,2100 [facility] Last Admin: 06/01/18 05:39 Dose: 5,000 units Cefepime HCl (Maxipime 1 Gm In Dextrose Duplex (*)) 1 gm in 50 mls @ 100 mls/ hr IV Q12H [facility] Last Admin: 06/01/18 09:11 Dose: 100 mls/hr Insulin Human Lispro (Humalog*) 0 units SUBCUT ACHS [facility]; Protocol Last Admin: 06/01/18 07:39 Dose: 12 units Insulin Human Lispro (Humalog*) 0 units SUBCUT .SEE PROTOCOL [facility]; Protocol Lamotrigine (Lamictal Xr (Nf)) 200 mg PO DAILY [facility] Last Admin: 06/01/18 09:11 Dose: 200 mg Morphine Sulfate (Morphine Inj ((Syringe))*) 2 mg IV Q2H PRN PRN Reason: PAIN - BREAKTHROUGH Ondansetron HCl (Zofran Inj*) 4 mg IV Q6H PRN PRN Reason: NAUSEA Oxycodone HCl (Roxycodone Tab*) 5 mg PO Q4H PRN PRN Reason: PAIN - MODERATE Oxycodone HCl (Roxycodone Tab*) 10 mg PO Q4H PRN PRN Reason: PAIN - SEVERE Sertraline HCl (Zoloft*) 100 mg PO DAILY [facility] Last Admin: 06/01/18 09:11 Dose: 100 mg Vital Signs - 8 hr 06/01/18 06/01/18 06/01/18 08:00 08:10 09:52 Temperature 97.9 F Pulse Rate 73 Respiratory 16 16 18 Rate Blood Pressure 115/62 (mmHg) O2 Sat by Pulse 94 100 Oximetry Oxygen Devices in Use Now: None Appearance: Alert, NAD Eyes: No Scleral Icterus, PERRLA Ears/Nose/Mouth/Throat: Clear Oropharnyx, Mucous Membranes Moist Neck: NL Appearance and Movements; NL JVP, Trachea Midline Respiratory: Symmetrical Chest Expansion and Respiratory Effort, Clear to Auscultation Cardiovascular: NL Sounds; No Murmurs; No JVD, RRR, No Edema Abdominal: NL Sounds; No Tenderness; No Distention Skin: - - dressing CDI, no drainage noted Neurological: Alert and Oriented x 3 Result Diagrams: 06/01/18 05:09 05/31/18 05:13 Microbiology and Other Data: Microbiology 05/28/18 10:20 Skin and Soft Tissue MRSA/MSSA (PCR - Final Toe Mrsa Negative S.aureus Positive Gram Stain - Final Assess/Plan/Problems-Billing Assessment: This is a 62-year-old male with a past medical history of insulin-dependent type 2 diabetes, recent diagnosis of critical limb ischemia with recent revascularization, was directly admitted by the orthopedic team for IV antibiotics and surgical intervention, currently now is status post left great toe amputation with debridement. - Patient Problems (1) Non-healing open wound of toe Code(s): S91.109A - UNSP OPEN WOUND OF UNSP TOE(S) W/O DAMAGE TO NAIL, INIT SNOMED Code(s): 527168310 Comment: - POD3 left great toe debridement and amputation up to the proximal phalynx - POC as per ortho - ID following, however, cultures showing multiple organisms today. Placed on cefepime to cover serratia and staph, but waiting on revised tissue culture from micro to determine if MRSA present or not. Will adjust accordingly when available, per Debra in lab, likely tomorrow when sample is re-run. Roseanne smith (2) Depression Code(s): F32.9 - MAJOR DEPRESSIVE DISORDER, SINGLE EPISODE, UNSPECIFIED SNOMED Code(s): 64695910 Comment: - Made passive suicidal statements earlier in the week, has long history of MDD - Seen by psych who will re-evaluate Saturday - Patient contracts for safety and is not making suicidal statements (passive or other) - Confirmed that patient was on lamotragine and sertraline and did well. Re- started these meds today, continue to monitor mood. (3) Acute kidney injury Code(s): N17.9 - ACUTE KIDNEY FAILURE, UNSPECIFIED SNOMED Code(s): 85318475 Comment: - Resolved with IVFs (4) Diabetes mellitus Code(s): E11.9 - TYPE 2 DIABETES MELLITUS WITHOUT COMPLICATIONS SNOMED Code(s) : 20405627 Comment: - Sugars labile - Restarted home insulin pump (humalog 30units continuous Q24h) and cover as needed AC and HS per lispro SS (5) Peripheral arterial disease Code(s): I73.9 - PERIPHERAL VASCULAR DISEASE, UNSPECIFIED SNOMED Code(s): 529768732 Comment: - Hx of claudication s/p revascularzation March 2018 - Restart ASA/plavix when cleared by Ortho post-op (6) DVT prophylaxis Code(s): CKV8916 - SNOMED Code(s): 620856952 Comment: - HSQ (7) Full code status Code(s): Z78.9 - OTHER SPECIFIED HEALTH STATUS SNOMED Code(s): 534114003 Status and Disposition: Remain inpatient, ID not available this weekend, continue to work closely with micro and pharmacy on appropriate therapy. If plan for BHU, cannot go with PICC line if patient needs rodent exterminator atbx, however, patient's depression appears to be improving. Dispo TBD.
[2018-06-01 12:48] LABS: Hematocrit 36 % (42-52); Hemoglobin 12.7 g/dl (14.0-18.0); Mean Corpuscular HGB Conc 35 g/dl (31-36); Mean Corpuscular Hemoglobin 30 pg (27-31); Mean Corpuscular Volume 85 fL (80-94); Mean Platelet Volume 7.7 um3 (7.4-10.4); Platelet Count 199 10^3/ul (150-450); Red Blood Count 4.26 10^6/ul (4.00-5.40); Red Cell Distribution Width 12 % (10.5-15); White Blood Count 6.3 10^3/ul (3.5-10.8)
[2018-06-01 13:49] LABS: ABS Basophils 0.1 10^3/ul (0-0.2); ABS Eosinophils 0.3 10^3/ul (0-0.6); ABS Lymphocytes 0.8 10^3/ul (1.0-4.8); ABS Monocytes 0.7 10^3/ul (0-0.8); ABS Neutrophils 4.5 10^3/ul (1.5-7.7); ABS Nucleated RBC 0 10^3/ul; Eosinophil % 4.4 % (0-6); Lymphocyte % 12.1 % (25-47); Nucleated Red Blood Cells % 0.1
[2018-06-01] MEDS: Clopidogrel TAB* 75 MG PO SCH (18:33)
[2018-06-01] MEDS: buPROPion SR TAB.SR* 150 MG PO SCH (20:55)
[2018-06-02] MEDS: Heparin VIAL(*) 5000 UNITS/ML VIAL (FIVE THOUSAND) SUBCUT SCH ×3 (05:19→21:48)
[2018-06-02] MEDS: amLODIPine TAB* 5 MG PO SCH (08:15)
[2018-06-02] MEDS: LAMOTRIGINE 200 MG PO SCH (08:15)
[2018-06-02] MEDS: buPROPion SR TAB.SR* 150 MG PO SCH ×2 (08:15→21:47)
[2018-06-02] MEDS: Insulin LISPRO* 1 UNITS UNIT SUBCUT SCH ×4 (08:15→22:03)
[2018-06-02] MEDS: Sertraline* 100 MG TAB PO SCH (08:15)
[2018-06-02] MEDS: Aspirin 81 mg CHEW TAB* 81 MG TAB.CHEW PO SCH (08:15)
[2018-06-02] MEDS: Cefepime 1 GM in Dextrose(*) 1 GM/50 ML BAG IV SCH ×2 (08:16→22:11)
--- NOTE | 2018-06-02 10:25 | PN ---
Progress Note - Progress Note Date of Service: 06/02/18 SOAP: Subjective: Pt sitting comfortably in chair. No complaint of pain. Denies F/C, CP, SOB. Vital Signs: Temp Pulse Resp BP Pulse Ox 97.5 F 70 16 135/72 96 06/02/18 07:19 06/02/18 07:19 06/02/18 07:30 06/02/18 07:19 06/02/18 07:30 Laboratory Last Values WBC 6.3 10^3/ul (3.5-10.8) 06/01/18 12:43 RBC 4.26 10^6/ul (4.00-5.40) 06/01/18 12:43 Hgb 12.7 g/dl (14.0-18.0) L 06/01/18 12:43 Hct 36 % (42-52) L 06/01/18 12:43 MCV 85 fL (80-94) 06/01/18 12:43 MCH 30 pg (27-31) 06/01/18 12:43 MCHC 35 g/dl (31-36) 06/01/18 12:43 RDW 12 % (10.5-15) 06/01/18 12:43 Plt Count 199 10^3/ul (150-450) 06/01/18 12:43 MPV 7.7 um3 (7.4-10.4) 06/01/18 12:43 Neut % (Auto) 71.7 % (38-83) 06/01/18 12:43 Lymph % (Auto) 12.1 % (25-47) L 06/01/18 12:43 [place] % (Auto) 10.7 % (0-7) H 06/01/18 12:43 Eos % (Auto) 4.4 % (0-6) 06/01/18 12:43 Baso % (Auto) 1.1 % (0-2) 06/01/18 12:43 Absolute Neuts (auto) 4.5 10^3/ul (1.5-7.7) 06/01/18 12:43 Absolute Lymphs (auto) 0.8 10^3/ul (1.0-4.8) L 06/01/18 12:43 Absolute Monos (auto) 0.7 10^3/ul (0-0.8) 06/01/18 12:43 Absolute Eos (auto) 0.3 10^3/ul (0-0.6) 06/01/18 12:43 Absolute Basos (auto) 0.1 10^3/ul (0-0.2) 06/01/18 12:43 Absolute Nucleated RBC 0 10^3/ul 06/01/18 12:43 Nucleated RBC % 0.1 06/01/18 12:43 ESR 86 mm/Hr (0-20) H 05/27/18 18:39 INR (Anticoag Therapy) 0.95 (0.77-1.02) 05/29/18 20:08 APTT 33.2 seconds (26.0-36.3) 05/29/18 20:08 Sodium 135 mmol/L (135-145) 06/01/18 12:43 Potassium 4.9 mmol/L (3.5-5.0) 06/01/18 13:53 Chloride 102 mmol/L (101-111) 06/01/18 12:43 Carbon Dioxide 29 mmol/L (22-32) 06/01/18 12:43 Anion Gap 4 mmol/L (2-11) 06/01/18 12:43 BUN 12 mg/dL (6-24) 06/01/18 12:43 Creatinine 1.15 mg/dL (0.67-1.17) 06/01/18 12:43 Est GFR ( Amer) 77.5 (>60) 06/01/18 12:43 Est GFR (Non-Af Amer) 64.0 (>60) 06/01/18 12:43 BUN/Creatinine Ratio 10.4 (8-20) 06/01/18 12:43 Glucose 164 mg/dL (70-100) H 06/01/18 12:43 POC Glucose (mg/dL) 245 mg/dL (70-100) H 06/02/18 07:30 Glucose Meter Confirm 448 mg/dL (70-100) H 05/30/18 01:13 Lactic Acid 2.0 mmol/L (0.5-2.0) 05/27/18 19:19 Calcium 9.5 mg/dL (8.6-10.3) 06/01/18 12:43 Magnesium 2.1 mg/dL (1.9-2.7) 05/29/18 05:06 Total Bilirubin 0.40 mg/dL (0.2-1.0) 06/01/18 12:43 AST 25 U/L (13-39) 06/01/18 13:53 ALT 18 U/L (7-52) 06/01/18 12:43 Alkaline Phosphatase 80 U/L (34-104) 06/01/18 12:43 C-Reactive Protein 113.09 mg/L (<8.01) H 05/27/18 18:39 Total Protein 7.1 g/dL (6.4-8.9) 06/01/18 12:43 Albumin 3.7 g/dL (3.2-5.2) 06/01/18 12:43 Globulin 3.4 g/dL (2-4) 06/01/18 12:43 Albumin/Globulin Ratio 1.1 (1-3) 06/01/18 12:43 Objective: Dressing changed, Incision C/D/I. Calves soft, nontender. No edema. NVI Assessment: s/p left great toe I&D Plan: Continue abx Pain control Continue psych meds Will continue to follow
[2018-06-02] MEDS ORDERED: Vancomycin per Pharmacy* NOTE FOLLOW UP SCH (11:00)
[2018-06-02] MEDS ORDERED: Vancomycin(*) 1,500 MG in NS 0.9% 250 ML* 250 ML IVPB ONE (11:00)
[2018-06-02 12:15] LABS: ABS Basophils 0.1 10^3/ul (0-0.2); ABS Eosinophils 0.2 10^3/ul (0-0.6); ABS Lymphocytes 0.6 10^3/ul (1.0-4.8); ABS Monocytes 0.6 10^3/ul (0-0.8); ABS Neutrophils 3.3 10^3/ul (1.5-7.7); ABS Nucleated RBC 0 10^3/ul; Eosinophil % 3.6 % (0-6); Hematocrit 34 % (42-52); Hemoglobin 11.8 g/dl (14.0-18.0); Lymphocyte % 12.6 % (25-47); Mean Corpuscular HGB Conc 35 g/dl (31-36); Mean Corpuscular Hemoglobin 30 pg (27-31); Mean Corpuscular Volume 87 fL (80-94); Mean Platelet Volume 7.3 um3 (7.4-10.4); Nucleated Red Blood Cells % 0.3; Platelet Count 189 10^3/ul (150-450); Red Blood Count 3.93 10^6/ul (4.00-5.40); Red Cell Distribution Width 13 % (10.5-15); White Blood Count 4.7 10^3/ul (3.5-10.8)
[2018-06-02 12:31] LABS: EGFR Non-African American 64.7 (>60)
[2018-06-02] MEDS ORDERED: Insulin GLARGINE(*) 1 UNITS UNIT SUBCUT SCH (15:00)
[2018-06-02] MEDS ORDERED: Insulin LISPRO* 1 UNITS UNIT SUBCUT ONE (15:00)
--- NOTE | 2018-06-02 16:37 | PN ---
Subjective Date of Service: 06/02/18 Interval History: Patient seen and examined. No acute overnight events. Call to to explain tissue culture. Initiated vancomycin to cover MRSA based on conversation with micro today. Blood cx NTD, patient and aware. Patient denies SOB, no chest pain, no fevers or chills. Mood stable. Objective Active Medications: Acetaminophen (Tylenol Tab*) 650 mg PO Q6H PRN PRN Reason: PAIN OR TEMPERATURE [facility]*) [facility] Admin: 06/02/18 08:15 Dose: 5 mg Aspirin (Aspirin 81 Mg Chew Tab*) [facility] Last Admin: 06/02/18 08:15 Dose: 81 mg Bupropion HCl (Wellbutrin Sr Tab*) 150 mg PO BID [facility] Last Admin: 06/02/18 08:15 Dose: 150 mg Clopidogrel Bisulfate (Plavix Tab*) 75 mg PO QPM [facility] Last Admin: 06/01/18 18:33 Dose: 75 mg Dextrose (D50w Syringe 50 Ml*) 12.5 gm IV PUSH .FOR FS < 60 - SS PRN PRN Reason: FS < 60 Diphenhydramine HCl (Benadryl Iv*) 25 mg IV Q6H PRN PRN Reason: PRURITIS Diphenoxylate HCl/Atropine (Lomotil Tab*) 1 tab PO BID PRN PRN Reason: DIARRHEA Last Admin: 06/01/18 09:52 Dose: 1 tab Glipizide (Glucotrol Xl*) [facility] Heparin Sodium (Porcine) (Heparin Vial(*)) 5,000 units SUBCUT 0500,1300,2100 [facility] Last Admin: 06/02/18 14:16 Dose: 5,000 units Cefepime HCl (Maxipime 1 Gm In Dextrose Duplex (*)) 1 gm in 50 mls @ 100 mls/ hr IV Q12H [facility] Last Admin: 06/02/18 08:16 Dose: 100 mls/hr Vancomycin HCl 1,000 mg/ (Sodium Chloride) 250 mls @ 166.667 mls/hr IVPB Q8H [facility] Insulin Human Lispro (Humalog*) 0 units SUBCUT ACHS [facility]; Protocol Last Admin: 06/02/18 12:57 Dose: 15 units Insulin Human Lispro (Humalog*) 0 units SUBCUT .SEE PROTOCOL [facility]; Protocol Lamotrigine (Lamictal Xr (Nf)) 200 mg PO DAILY [facility] Last Admin: 06/02/18 08:15 Dose: 200 mg Metformin HCl (Glucophage*) 1,000 mg PO BID [facility] Morphine Sulfate (Morphine Inj ((Syringe))*) 2 mg IV Q2H PRN PRN Reason: PAIN - BREAKTHROUGH Ondansetron HCl (Zofran Inj*) 4 mg IV Q6H PRN PRN Reason: NAUSEA Oxycodone HCl (Roxycodone Tab*) 5 mg PO Q4H PRN PRN Reason: PAIN - MODERATE Oxycodone HCl (Roxycodone Tab*) 10 mg PO Q4H PRN PRN Reason: PAIN - SEVERE Pharmacy Consult (Vancomycin Per Pharmacy*) 1 note FOLLOW UP .VANC PER PHARMACY [facility] Pharmacy Profile Note (Vancomycin Trough Check) 1 note FOLLOW UP ONCE ONE Stop: 06/04/18 11:31 Sertraline HCl (Zoloft*) 100 mg PO DAILY [facility] Last Admin: 06/02/18 08:15 Dose: 100 mg Vital Signs - 8 hr 06/02/18 06/02/18 11:46 15:19 Temperature 98.6 F 98.0 F Pulse Rate 76 81 Respiratory 16 20 Rate Blood Pressure 151/65 122/59 (mmHg) O2 Sat by Pulse 100 95 Oximetry Oxygen Devices in Use Now: None Appearance: alert, NAD Eyes: No Scleral Icterus, PERRLA Ears/Nose/Mouth/Throat: Clear Oropharnyx, Mucous Membranes Moist Neck: NL Appearance and Movements; NL JVP, Trachea Midline Respiratory: Symmetrical Chest Expansion and Respiratory Effort, Clear to Auscultation Cardiovascular: NL Sounds; No Murmurs; No JVD, RRR, No Edema Abdominal: NL Sounds; No Tenderness; No Distention Extremities: No Clubbing, Cyanosis, - - dressing CDI Skin: No Rash or Ulcers Neurological: Alert and Oriented x 3, NL Sensation, NL Gait Nutrition: Taking PO's Result Diagrams: 06/02/18 12:09 06/02/18 12:09 Microbiology and Other Data: Microbiology 05/28/18 10:20 Skin and Soft Tissue MRSA/MSSA (PCR - Final Toe Mrsa Negative S.aureus Positive Gram Stain - Final Assess/Plan/Problems-Billing Assessment: This is a 62-year-old male with a past medical history of insulin-dependent type 2 diabetes, recent diagnosis of critical limb ischemia with recent revascularization, was directly admitted by the orthopedic team for IV antibiotics and surgical intervention, currently now is status post left great toe amputation with debridement. - Patient Problems (1) Non-healing open wound of toe Code(s): S91.109A - UNSP OPEN WOUND OF UNSP TOE(S) W/O DAMAGE TO NAIL, INIT SNOMED Code(s): 345998001 Comment: - POD4 left great toe debridement and amputation up to the proximal phalynx - POC as per ortho - ID following, however, cultures showing multiple organisms today, including MRSA. - Added vanco per pharmacy today and continue cefepime BID. (2) Depression Code(s): F32.9 - MAJOR DEPRESSIVE DISORDER, SINGLE EPISODE, UNSPECIFIED SNOMED Code(s): 11171011 Comment: - Made passive suicidal statements earlier in the week, has long history of MDD - Seen by psych who will re-evaluate Saturday - Patient contracts for safety and is not making suicidal statements (passive or other) - Restarted lamotragine, wellbutrin and sertraline (3) Acute kidney injury Code(s): N17.9 - ACUTE KIDNEY FAILURE, UNSPECIFIED SNOMED Code(s): 83603673 Comment: - Resolved with IVFs (4) Diabetes mellitus Code(s): E11.9 - TYPE 2 DIABETES MELLITUS WITHOUT COMPLICATIONS SNOMED Code(s) : 46140370 Comment: - Sugars labile - Restarted home insulin pump (humalog 30units continuous Q24h) and cover as needed AC and HS per lispro SS - Restarted PO meds today (5) Peripheral arterial disease Code(s): I73.9 - PERIPHERAL VASCULAR DISEASE, UNSPECIFIED SNOMED Code(s): 848251696 Comment: - Hx of claudication s/p revascularzation March 2018 - Restart ASA/plavix when cleared by Ortho post-op (6) DVT prophylaxis Code(s): LBO0344 - SNOMED Code(s): 355793421 Comment: - HSQ (7) Full code status Code(s): Z78.9 - OTHER SPECIFIED HEALTH STATUS SNOMED Code(s): 756757573 Status and Disposition: Remain inpatient, ID not available this weekend, continue to work closely with micro and pharmacy on appropriate therapy. If plan for BHU, cannot go with PICC line if patient needs long term care pharmacist atbx, however, patient's depression appears to be improving. Dispo TBD.
[2018-06-02] MEDS: Clopidogrel TAB* 75 MG PO SCH (17:10)
[2018-06-02] MEDS: Vancomycin(*) 1,000 MG in NS 0.9% 250 ML* 250 ML IVPB SCH (20:33)
[2018-06-02] MEDS: metFORMIN* 1,000 MG TAB PO SCH (21:47)
[2018-06-03] MEDS: Vancomycin(*) 1,000 MG in NS 0.9% 250 ML* 250 ML IVPB SCH ×3 (04:37→19:55)
[2018-06-03] MEDS: Heparin VIAL(*) 5000 UNITS/ML VIAL (FIVE THOUSAND) SUBCUT SCH ×3 (04:41→21:52)
[2018-06-03] MEDS: glipiZIDE TAB.XL* 5 MG PO SCH (08:46)
[2018-06-03] MEDS: Sertraline* 100 MG TAB PO SCH (08:46)
[2018-06-03] MEDS: LAMOTRIGINE 200 MG PO SCH (08:46)
[2018-06-03] MEDS: metFORMIN* 1,000 MG TAB PO SCH ×2 (08:46→21:52)
[2018-06-03] MEDS: Aspirin 81 mg CHEW TAB* 81 MG TAB.CHEW PO SCH (08:46)
[2018-06-03] MEDS: buPROPion SR TAB.SR* 150 MG PO SCH ×2 (08:46→21:52)
[2018-06-03] MEDS: Cefepime 1 GM in Dextrose(*) 1 GM/50 ML BAG IV SCH ×2 (08:46→21:52)
[2018-06-03] MEDS: amLODIPine TAB* 5 MG PO SCH (08:47)
[2018-06-03] MEDS: Insulin LISPRO* 1 UNITS UNIT SUBCUT SCH ×4 (08:47→21:52)
[2018-06-03 10:42] LABS: Hematocrit 30 % (42-52); Hemoglobin 10.4 g/dl (14.0-18.0); Mean Corpuscular HGB Conc 35 g/dl (31-36); Mean Corpuscular Hemoglobin 30 pg (27-31); Mean Corpuscular Volume 86 fL (80-94); Mean Platelet Volume 7.5 um3 (7.4-10.4); Platelet Count 157 10^3/ul (150-450); Red Blood Count 3.48 10^6/ul (4.00-5.40); Red Cell Distribution Width 13 % (10.5-15); White Blood Count 4.6 10^3/ul (3.5-10.8)
--- NOTE | 2018-06-03 10:52 | PN ---
Progress Note - Progress Note Date of Service: 06/03/18 SOAP: Subjective: []Patient seen and examined at bedside. He is feeling well with no feeling of fever, chills, CP, SOB, dizziness or nausea. Desires D/C when possible. Objective: []General: Well appearing, NAD LLE: Dressing changed, incision with well approximated wound edges, C/D/I without surrounding erythema or discharge. No tenderness of palpation. Calves soft, nontender. No edema. Assessment: s/p left great toe I&D Plan: Continue abx. On vancomycin and cefepime. Will require infusions x 21 days, likely DC tomorrow Will be seen by psych today to determine if any need for further inpatient intervention Likely DC tomorrow. Close follow up in clinic to follow incision healing due to questionable skin integrity Vital Signs Temp 98.0 F 06/03/18 07:58 Pulse 72 06/03/18 07:58 Resp 16 06/03/18 08:00 BP 112/64 06/03/18 07:58 Pulse Ox 94 06/03/18 08:00 Intake & Output 06/02/18 06/03/18 06/03/18 18:59 06:59 18:59 Intake Total 2200 2466 Output Total 250 Balance 2200 2216 Intake: IV Fluids 626 ABX - CEFEPIME 55 ABX - VANCOMYCIN 501 NS (0.9%) 70 Oral 2200 1840 Output: Urine 250 Other: Estimated Void Large Large # Bowel Movements 0 # Voids 1 2 Laboratory Last Values WBC 4.6 10^3/ul (3.5-10.8) 06/03/18 10:25 RBC 3.48 10^6/ul (4.00-5.40) L 06/03/18 10:25 Hgb 10.4 g/dl (14.0-18.0) L 06/03/18 10:25 Hct 30 % (42-52) L 06/03/18 10:25 MCV 86 fL (80-94) 06/03/18 10:25 MCH 30 pg (27-31) 06/03/18 10:25 MCHC 35 g/dl (31-36) 06/03/18 10:25 RDW 13 % (10.5-15) 06/03/18 10:25 Plt Count 157 10^3/ul (150-450) 06/03/18 10:25 MPV 7.5 um3 (7.4-10.4) 06/03/18 10:25 Neut % (Auto) 70.1 % (38-83) 06/02/18 12:09 Lymph % (Auto) 12.6 % (25-47) L 06/02/18 12:09 Teller % (Auto) 12.2 % (0-7) H 06/02/18 12:09 Eos % (Auto) 3.6 % (0-6) 06/02/18 12:09 Baso % (Auto) 1.5 % (0-2) 06/02/18 12:09 Absolute Neuts (auto) 3.3 10^3/ul (1.5-7.7) 06/02/18 12:09 Absolute Lymphs (auto) 0.6 10^3/ul (1.0-4.8) L 06/02/18 12:09 Absolute Monos (auto) 0.6 10^3/ul (0-0.8) 06/02/18 12:09 Absolute Eos (auto) 0.2 10^3/ul (0-0.6) 06/02/18 12:09 Absolute Basos (auto) 0.1 10^3/ul (0-0.2) 06/02/18 12:09 Absolute Nucleated RBC 0 10^3/ul 06/02/18 12:09 Nucleated RBC % 0.3 06/02/18 12:09 ESR 86 mm/Hr (0-20) H 05/27/18 18:39 INR (Anticoag Therapy) 0.95 (0.77-1.02) 05/29/18 20:08 APTT 33.2 seconds (26.0-36.3) 05/29/18 20:08 Sodium 133 mmol/L (135-145) L 06/02/18 12:09 Potassium 4.5 mmol/L (3.5-5.0) 06/02/18 16:52 Chloride 100 mmol/L (101-111) L 06/02/18 12:09 Carbon Dioxide 28 mmol/L (22-32) 06/02/18 12:09 Anion Gap 5 mmol/L (2-11) 06/02/18 12:09 BUN 16 mg/dL (6-24) 06/02/18 12:09 Creatinine 1.14 mg/dL (0.67-1.17) 06/02/18 12:09 Est GFR ( Amer) 78.3 (>60) 06/02/18 12:09 Est GFR (Non-Af Amer) 64.7 (>60) 06/02/18 12:09 BUN/Creatinine Ratio 14.0 (8-20) 06/02/18 12:09 Glucose 418 mg/dL (70-100) H 06/02/18 12:09 POC Glucose (mg/dL) 203 mg/dL (70-100) H 06/03/18 07:58 Glucose Meter Confirm 448 mg/dL (70-100) H 05/30/18 01:13 Lactic Acid 2.0 mmol/L (0.5-2.0) 05/27/18 19:19 Calcium 9.1 mg/dL (8.6-10.3) 06/02/18 12:09 Magnesium 2.1 mg/dL (1.9-2.7) 05/29/18 05:06 Total Bilirubin 0.40 mg/dL (0.2-1.0) 06/02/18 12:09 AST 33 U/L (13-39) 06/02/18 12:09 ALT 25 U/L (7-52) 06/02/18 12:09 Alkaline Phosphatase 93 U/L (34-104) 06/02/18 12:09 C-Reactive Protein 113.09 mg/L (<8.01) H 05/27/18 18:39 Total Protein 6.7 g/dL (6.4-8.9) 06/02/18 12:09 Albumin 3.6 g/dL (3.2-5.2) 06/02/18 12:09 Globulin 3.1 g/dL (2-4) 06/02/18 12:09 Albumin/Globulin Ratio 1.2 (1-3) 06/02/18 12:09
[2018-06-03 10:59] LABS: EGFR Non-African American 67.4 (>60)
[2018-06-03 11:13] LABS: ABS Basophils 0.1 10^3/ul (0-0.2); ABS Eosinophils 0.2 10^3/ul (0-0.6); ABS Lymphocytes 0.6 10^3/ul (1.0-4.8); ABS Monocytes 0.6 10^3/ul (0-0.8); ABS Neutrophils 3.2 10^3/ul (1.5-7.7); ABS Nucleated RBC 0 10^3/ul; Eosinophil % 4.3 % (0-6); Lymphocyte % 13.7 % (25-47); Nucleated Red Blood Cells % 0.2
[2018-06-03] MEDS: Clopidogrel TAB* 75 MG PO SCH (17:53)
--- NOTE | 2018-06-03 18:29 | PN ---
Subjective Date of Service: 06/03/18 Interval History: Patient seen and examined. Feeling well, mood improved. Ambulatory, no fevers or chills. Denies chest pain, no SOB. Discussed infusion with Reginova at home, patient agreeable. Objective Active Medications: Acetaminophen (Tylenol Tab*) 650 mg PO Q6H PRN PRN Reason: PAIN OR TEMPERATURE Amlodipine Besylate ([facility]vasc Tab*) [facility] [place] [place] Last Admin: 06/03/18 08:47 Dose: 5 mg Aspirin (Aspirin 81 Mg Chew Tab*) 81 mg PO QAM [facility] Last Admin: 06/03/18 08:46 Dose: 81 mg Bupropion HCl (Wellbutrin Sr Tab*) 150 mg PO BID [facility] Last Admin: 06/03/18 08:46 Dose: 150 mg Clopidogrel Bisulfate (Plavix Tab*) 75 mg PO QPM [facility] Last Admin: 06/03/18 17:53 Dose: 75 mg Dextrose (D50w Syringe 50 Ml*) 12.5 gm IV PUSH .FOR FS < 60 - SS PRN PRN Reason: FS < 60 Diphenhydramine HCl (Benadryl Iv*) 25 mg IV Q6H PRN PRN Reason: PRURITIS Diphenoxylate HCl/Atropine (Lomotil Tab*) 1 tab PO BID PRN PRN Reason: DIARRHEA Last Admin: 06/01/18 09:52 Dose: 1 tab Glipizide (Glucotrol Xl*) [facility] [place] [place] Last Admin: 06/03/18 08:46 Dose: 10 mg Heparin Sodium (Porcine) (Heparin Vial(*)) 5,000 units SUBCUT 0500,1300,2100 [facility] Last Admin: 06/03/18 13:49 Dose: 5,000 units Cefepime HCl (Maxipime 1 Gm In Dextrose Duplex (*)) 1 gm in 50 mls @ 100 mls/ hr IV Q12H [facility] Last Admin: 06/03/18 08:46 Dose: 100 mls/hr Vancomycin HCl 1,000 mg/ (Sodium Chloride) 250 mls @ 166.667 mls/hr IVPB Q8H [facility] Last Admin: 06/03/18 12:22 Dose: 166.667 mls/hr Insulin Human Lispro (Humalog*) 0 units SUBCUT [facility]; Protocol Last Admin: 06/03/18 17:10 Dose: Not Given Insulin Human Lispro (Humalog*) 0 units SUBCUT .SEE PROTOCOL [facility]; Protocol Lamotrigine (Lamictal Xr (Nf)) 200 mg PO DAILY [facility] Last Admin: 06/03/18 08:46 Dose: 200 mg Metformin HCl (Glucophage*) 1,000 mg PO BID [facility] Last Admin: 06/03/18 08:46 Dose: 1,000 mg Morphine Sulfate (Morphine Inj ((Syringe))*) 2 mg IV Q2H PRN PRN Reason: PAIN - BREAKTHROUGH Ondansetron HCl (Zofran Inj*) 4 mg IV Q6H PRN PRN Reason: NAUSEA Oxycodone HCl (Roxycodone Tab*) 5 mg PO Q4H PRN PRN Reason: PAIN - MODERATE Oxycodone HCl (Roxycodone Tab*) 10 mg PO Q4H PRN PRN Reason: PAIN - SEVERE Pharmacy Consult (Vancomycin Per Pharmacy*) 1 note FOLLOW UP .VANC PER PHARMACY [facility] Pharmacy Profile Note (Vancomycin Trough Check) 1 note FOLLOW UP ONCE ONE Stop: 06/04/18 11:31 Sertraline HCl (Zoloft*) 100 mg PO DAILY [facility] Last Admin: 06/03/18 08:46 Dose: 100 mg Vital Signs - 8 hr 06/03/18 06/03/18 12:20 12:31 Temperature 98.2 F Pulse Rate 72 Respiratory 16 16 Rate Blood Pressure 138/67 (mmHg) O2 Sat by Pulse 100 Oximetry Oxygen Devices in Use Now: None Appearance: alert, NAD Ears/Nose/Mouth/Throat: Clear Oropharnyx, Mucous Membranes Moist Neck: NL Appearance and Movements; NL JVP, Trachea Midline Respiratory: Symmetrical Chest Expansion and Respiratory Effort, Clear to Auscultation Cardiovascular: NL Sounds; No Murmurs; No JVD, RRR Abdominal: NL Sounds; No Tenderness; No Distention Extremities: No Edema, - - left foot dressing CDI Neurological: Alert and Oriented x 3, NL Sensation Nutrition: Taking PO's Result Diagrams: 06/03/18 10:25 06/03/18 10:25 Microbiology and Other Data: Microbiology 05/28/18 10:20 Skin and Soft Tissue MRSA/MSSA (PCR - Final Toe Mrsa Negative S.aureus Positive Gram Stain - Final Assess/Plan/Problems-Billing Assessment: This is a 62-year-old male with a past medical history of insulin-dependent type 2 diabetes, recent diagnosis of critical limb ischemia with recent revascularization, was directly admitted by the orthopedic team for IV antibiotics and surgical intervention, currently now is status post left great toe amputation with debridement. - Patient Problems (1) Non-healing open wound of toe Code(s): S91.109A - UNSP OPEN WOUND OF UNSP TOE(S) W/O DAMAGE TO NAIL, INIT SNOMED Code(s): 768283782 Comment: - POD5 left great toe debridement and amputation up to the proximal phalynx - POC as per ortho - ID following, however, cultures showing multiple organisms, including MRSA. - Per ID, ok to DC on vanco 1gram TID and cefepime 1 gram BID (2) Depression Code(s): F32.9 - MAJOR DEPRESSIVE DISORDER, SINGLE EPISODE, UNSPECIFIED SNOMED Code(s): 33511958 Comment: - Made passive suicidal statements earlier in the week, has long history of MDD - Seen by psych who will re-evaluate Saturday - Patient contracts for safety and is not making suicidal statements (passive or other). States his mood is greatly improved and he is happy to go home tomorrow - Restarted lamotragine, wellbutrin and sertraline with no adverse effects, will continue at DC (3) Acute kidney injury Code(s): N17.9 - ACUTE KIDNEY FAILURE, UNSPECIFIED SNOMED Code(s): 88027744 Comment: - Resolved with IVFs (4) Diabetes mellitus Code(s): E11.9 - TYPE 2 DIABETES MELLITUS WITHOUT COMPLICATIONS SNOMED Code(s) : 37113427 Comment: - Sugars labile - Restarted home insulin pump (humalog 30units continuous Q24h) and cover as needed AC and HS per lispro SS - Restarted PO meds 06/02 (5) Peripheral arterial disease Code(s): I73.9 - PERIPHERAL VASCULAR DISEASE, UNSPECIFIED SNOMED Code(s): 995752021 Comment: - Hx of claudication s/p revascularzation March 2018 - Restart ASA/plavix when cleared by Ortho post-op (6) DVT prophylaxis Code(s): CUJ8961 - SNOMED Code(s): 038335500 Comment: - HSQ (7) Full code status Code(s): Z78.9 - OTHER SPECIFIED HEALTH STATUS SNOMED Code(s): 181104946 Status and Disposition: DC in AM after PICC inserted and Mikel completes teaching.
[2018-06-03] MEDS: Diphenoxylat/Atrop 2.5-0.025M* 1 TAB PO PRN (19:54)
[2018-06-04] MEDS: Vancomycin(*) 1,000 MG in NS 0.9% 250 ML* 250 ML IVPB SCH (03:53)
[2018-06-04] MEDS: Heparin VIAL(*) 5000 UNITS/ML VIAL (FIVE THOUSAND) SUBCUT SCH (05:34)
[2018-06-04] MEDS: Aspirin 81 mg CHEW TAB* 81 MG TAB.CHEW PO SCH (08:25)
[2018-06-04] MEDS: buPROPion SR TAB.SR* 150 MG PO SCH (08:25)
[2018-06-04] MEDS: Insulin LISPRO* 1 UNITS UNIT SUBCUT SCH (08:25)
[2018-06-04] MEDS: metFORMIN* 1,000 MG TAB PO SCH (08:25)
[2018-06-04] MEDS: LAMOTRIGINE 200 MG PO SCH (08:25)
[2018-06-04] MEDS: glipiZIDE TAB.XL* 5 MG PO SCH (08:25)
[2018-06-04] MEDS: amLODIPine TAB* 5 MG PO SCH (08:25)
[2018-06-04] MEDS: Sertraline* 100 MG TAB PO SCH (08:25)
[2018-06-04] MEDS: Cefepime 1 GM in Dextrose(*) 1 GM/50 ML BAG IV SCH (08:31)
--- NOTE | 2018-06-04 10:33 | PN ---
Progress Note - Progress Note Date of Service: 06/04/18 SOAP: Subjective: CC: foot infection HPI: 62 yo man with DM and PAD and recent left great toe gangrene s/p partial amp then wound dehiscence and infection, now s/p I&D. He feels well. Has baseline diarrhea which is unchanged and no fever or rash. Objective: Vital Signs Temp 36.8 C 06/04/18 07:30 Pulse 76 06/04/18 07:30 Resp 16 06/04/18 08:46 BP 145/68 06/04/18 07:30 Pulse Ox 98 06/04/18 08:46 Intake & Output 06/03/18 06/04/18 06/04/18 18:59 06:59 18:59 Intake Total 500 2636 Output Total 500 Balance 500 2136 Intake: IV Fluids 616 ABX - CEFEPIME 50 ABX - VANCOMYCIN 520 NS (0.9%) 46 Oral 500 2020 Output: Urine 500 Other: Estimated Void Large Medium # Voids 1 1 Gen:awake, no distress HEENT: no thrush Heart:RRR no murmur Lungs:CTA BL Abd:+BS NTND soft Skin: no rash MSK: Left foot wrapped Microbiology 05/29/18 15:47 Wound Gram Stain - Final Tissue - Left Tissue Culture - Final MRSA Serratia Marcescens Enterococcus Faecalis Anaerobic Culture - Final Skin and Soft Tissue MRSA/MSSA (PCR - Final Mrsa Negative S.aureus Positive Assessment: 1. polymicrobial wound infection and acute osteomyelitis, left foot 2. PAD s/p intervention 3. T2DM Plan: 1. continue vancomycin and cefepime 1 gm IV Q12hrs day 04/26- with weekly cbc, cmp, crp, vanco trough 35 minutes floor time >50% face to face discussing fu abx plans
[2018-06-04] MEDS ORDERED: Vancomycin Trough Check NOTE FOLLOW UP ONE (11:30)
--- NOTE | 2018-06-04 11:37 | PN ---
Progress Note - Progress Note Date of Service: 06/04/18 SOAP: Subjective: [] Patient seen and examined at bedside. He is feeling well today with no fever , chills, CP, SOB, dizziness or nausea. Desires D/C to home. Objective: []General: Well appearing, NAD LLE: Dressing changed, incision with well approximated wound edges, C/D/I without surrounding erythema or discharge. Sensation intact to light touch and capillary refill is brisk distally. No tenderness of palpation. DP 1+ Calves soft, nontender. No edema. Assessment: s/p left great toe I&D Plan: Heel WB LLE DC to home. Had infusion teaching this morning. Will be on vancomycin and cefepime. Patient and educated to call orthopedic office with redness, drainage, wound separation, fever, chills, pain or any other wound concerns. F/U in clinic optimally Saturday, Saturday if unable with Dr. King to closely follow incision healing in light of questionable skin integrity and history of dehiscence Vital Signs Temp 98.2 F 06/04/18 07:30 Pulse 76 06/04/18 07:30 Resp 16 06/04/18 08:46 BP 145/68 06/04/18 07:30 Pulse Ox 98 06/04/18 08:46 Intake & Output 06/03/18 06/04/18 06/04/18 18:59 06:59 18:59 Intake Total 500 2636 Output Total 500 Balance 500 2136 Intake: IV Fluids 616 ABX - CEFEPIME 50 ABX - VANCOMYCIN 520 NS (0.9%) 46 Oral 500 2020 Output: Urine 500 Other: Estimated Void Large Medium # Voids 1 1 Laboratory Last Values WBC 4.6 10^3/ul (3.5-10.8) 06/03/18 10:25 RBC 3.48 10^6/ul (4.00-5.40) L 06/03/18 10:25 Hgb 10.4 g/dl (14.0-18.0) L 06/03/18 10:25 Hct 30 % (42-52) L 06/03/18 10:25 MCV 86 fL (80-94) 06/03/18 10:25 MCH 30 pg (27-31) 06/03/18 10:25 MCHC 35 g/dl (31-36) 06/03/18 10:25 RDW 13 % (10.5-15) 06/03/18 10:25 Plt Count 157 10^3/ul (150-450) 06/03/18 10:25 MPV 7.5 um3 (7.4-10.4) 06/03/18 10:25 Neut % (Auto) 68.7 % (38-83) 06/03/18 10:25 Lymph % (Auto) 13.7 % (25-47) L 06/03/18 10:25 [place] % (Auto) 12.0 % (0-7) H 06/03/18 10:25 Eos % (Auto) 4.3 % (0-6) 06/03/18 10:25 Baso % (Auto) 1.3 % (0-2) 06/03/18 10:25 Absolute Neuts (auto) 3.2 10^3/ul (1.5-7.7) 06/03/18 10:25 Absolute Lymphs (auto) 0.6 10^3/ul (1.0-4.8) L 06/03/18 10:25 Absolute Monos (auto) 0.6 10^3/ul (0-0.8) 06/03/18 10:25 Absolute Eos (auto) 0.2 10^3/ul (0-0.6) 06/03/18 10:25 Absolute Basos (auto) 0.1 10^3/ul (0-0.2) 06/03/18 10:25 Absolute Nucleated RBC 0 10^3/ul 06/03/18 10:25 Nucleated RBC % 0.2 06/03/18 10:25 ESR 86 mm/Hr (0-20) H 05/27/18 18:39 INR (Anticoag Therapy) 0.95 (0.77-1.02) 05/29/18 20:08 APTT 33.2 seconds (26.0-36.3) 05/29/18 20:08 Sodium 135 mmol/L (135-145) 06/03/18 10:25 Potassium 4.6 mmol/L (3.5-5.0) 06/03/18 10:25 Chloride 103 mmol/L (101-111) 06/03/18 10:25 Carbon Dioxide 28 mmol/L (22-32) 06/03/18 10:25 Anion Gap 4 mmol/L (2-11) 06/03/18 10:25 BUN 16 mg/dL (6-24) 06/03/18 10:25 Creatinine 1.10 mg/dL (0.67-1.17) 06/03/18 10:25 Est GFR ( Amer) 81.5 (>60) 06/03/18 10:25 Est GFR (Non-Af Amer) 67.4 (>60) 06/03/18 10:25 BUN/Creatinine Ratio 14.5 (8-20) 06/03/18 10:25 Glucose 349 mg/dL (70-100) H 06/03/18 10:25 POC Glucose (mg/dL) 202 mg/dL (70-100) H 06/04/18 07:14 Glucose Meter Confirm 448 mg/dL (70-100) H 05/30/18 01:13 Lactic Acid 2.0 mmol/L (0.5-2.0) 05/27/18 19:19 Calcium 8.6 mg/dL (8.6-10.3) 06/03/18 10:25 Magnesium 2.1 mg/dL (1.9-2.7) 05/29/18 05:06 Total Bilirubin 0.30 mg/dL (0.2-1.0) 06/03/18 10:25 AST 57 U/L (13-39) H 06/03/18 10:25 ALT 43 U/L (7-52) 06/03/18 10:25 Alkaline Phosphatase 98 U/L (34-104) 06/03/18 10:25 C-Reactive Protein 113.09 mg/L (<8.01) H 05/27/18 18:39 Total Protein 5.9 g/dL (6.4-8.9) L 06/03/18 10:25 Albumin 3.2 g/dL (3.2-5.2) 06/03/18 10:25 Globulin 2.7 g/dL (2-4) 06/03/18 10:25 Albumin/Globulin Ratio 1.2 (1-3) 06/03/18 10:25
[2018-06-04 12:38] VITALS: BP 153/88
--- NOTE | 2018-06-04 12:53 | DS ---
AMENDED REPORT NOW INCLUDES COSIGNER DESIGNATION - ESIGNED BEFORE ADJUSTMENT DATE OF ADMISSION: 05/27/2018 after direct admission from our office. DATE OF DISCHARGE: 06/04/2018. ATTENDING PROVIDER: Dr. King * (DICTATED BY SAIDA ADAM) HISTORY: Price had a prior partial left great toe amputation for gangrene. He developed dehiscence and infection of the wound. MRI showed possible early osteomyelitis at the distal aspect of the remaining proximal phalanx. The patient elected to undergo I and D of the left great toe. HOSPITAL COURSE: The patient was admitted to [facility] on 2017. He was started on IV Zosyn and on 05/29/2018, he underwent a left great toe irrigation and debridement, left great toe proximal phalanx bone incision for osteomyelitis, and secondary wound closure of the left great toe wound without complication. Due to culture growing staph aureus, the patient was switched to Ancef 2 gm q.8 hours. Cultures later grew serratia, staph, and enterococcus for which patient was switched to Cefepime. On June 02, Vancomycin was added due to culture growth of MRSA. The patient had a dressing change on June 02. Incision was clean, dry, and intact. Dressing was also changed on June 03 and June 04. Incision is clean, dry, and intact with all approximated wound edges. The skin integrity is somewhat poor. There is no discharge. There is no erythema or edema of the toe. There is no tenderness to palpation. The patient was seen by Infectious Disease on June 04 with the recommendation of continuation of Vancomycin and Cefepime with weekly CBC, CMP, CRP, and Vanco trough. Laboratory studies last done on June 03: White blood cell count 4.6, RBC 3.48, hemoglobin 10.4, hematocrit 30; sodium 135, potassium 4.6, glucose 349. The patient is deemed to be medically and orthopedically stable. Our hospitalist team discharged patient today June 04. Dr. Pérez is aware that with this discharge the patient will miss a day of Vanco, but he will receive Cefepime today. DISCHARGE MEDICATIONS: Medications to continue include: 1. Lamotrigine 200 mg p.o. q.a.m. 2. Sertraline 100 mg p.o. q.a.m. 3. Metformin b.i.d. 4. Glipizide 10 mg p.o. q.a.m. 5. Insulin Lispro as directed. 6. CBD oil one cap p.o. q.6 hours prn. 7. Docusate 100 mg p.o. b.i.d. 8. Amlodipine 5 mg p.o. q.a.m. 9. Aspirin 81 mg p.o. q.a.m. 10. Plavix 75 mg p.o. q.p.m. New medications: 1. Acetaminophen 650 mg p.o. q.6 hours prn. 2. Wellbutrin 100 mg p.o. b.i.d. 3. Lamotrigine 200 mg p.o. daily. 4. Oxycodone 5 mg p.o. q.8 hours prn, max daily dose of 3. 5. Sertraline 100 mg p.o. daily. 6. Antibiotics as ordered by Infectious Disease which include Cefepime 1 gm IV q.12 hours and Vancomycin 1,000 mg q.8 hours. DISCHARGE PLAN: The patient will be heel weightbearing on the infected side. Dry sterile dressing changes daily, nonadherent pad over the incision with a gauze wrap and then an Glenn wrap. Incision is to be kept clean, dry, and intact. Wound should be closely monitored. If you have any redness, drainage, pain, separation of incision, swelling, fever or chills, call the orthopedic office right away. Go to the emergency room with chest pain or shortness of breath. Follow-up with Dr. King June 06 or June 09, sooner is optimal with any concerns. SAIDA ADAM [id number]/[facility] #: [id number] LETY
== END 2018-06-04 12:39 | disposition home or self-care (01) | DRG 501 ==
LOC: SSU 16:59
PROVIDERS: ADMIT Orthopaedic Surgery; ATTEND Orthopaedic Surgery
PROC: 0QBR0ZZ Excision of Left Toe Phalanx, Open Approach (ICD-10-PCS; 2018-05-29)
PROC: 0LBW0ZZ Excision of Left Foot Tendon, Open Approach (ICD-10-PCS; principal; 2018-05-29 16:00)
PROC: 05H633Z Insertion of Infusion Device into Left Subclavian Vein, Percutaneous Approach (ICD-10-PCS; 2018-06-04)
DX: T87.81 Dehiscence of amputation stump (principal); M86.172 Other acute osteomyelitis, left ankle and foot; M86.672 Other chronic osteomyelitis, left ankle and foot; N17.9 Acute kidney failure, unspecified; L08.89 Other specified local infections of the skin and subcutaneous tissue; B95.62 Methicillin resistant Staphylococcus aureus infection as the cause of diseases classified elsewhere; B95.2 Enterococcus as the cause of diseases classified elsewhere; E11.69 Type 2 diabetes mellitus with other specified complication; E11.51 Type 2 diabetes mellitus with diabetic peripheral angiopathy without gangrene; F17.210 Nicotine dependence, cigarettes, uncomplicated; G25.0 Essential tremor; F32.9 Major depressive disorder, single episode, unspecified; I11.9 Hypertensive heart disease without heart failure; I25.10 Atherosclerotic heart disease of native coronary artery without angina pectoris; Z86.73 Personal history of transient ischemic attack (TIA), and cerebral infarction without residual deficits; Z79.84 Long term (current) use of oral hypoglycemic drugs; Z79.02 Long term (current) use of antithrombotics/antiplatelets; Z79.82 Long term (current) use of aspirin; Z79.4 Long term (current) use of insulin; Z79.899 Other long term (current) drug therapy; Z83.3 Family history of diabetes mellitus; Z82.49 Family history of ischemic heart disease and other diseases of the circulatory system
CPT/HCPCS: 36415; 80048; 80053; 80202; 82565; 82947; 83605; 83735; 84132; 84520; 85025; 85610; 85652; 85730; 86140; 87070; 87073; 87077; 87186; 87205; 87640; 87641; 88304; 88311; 93005; 93970; A9270-GY; C1751; G8978-GP-CI; G8979-GP-CI; G8980-GP-CI; G8987-GO-CI; G8988-GO-CI; G8989-GO-CI; J0690; J0692; J1644; J2250; J2543; J2704; J2795; J3370

== ENCOUNTER 2018-07-01 12:09 | Emergency (ER) | payer OTHER ==
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
--- OUTSIDE RECORDS SUMMARY | 2018-07-01 13:08 | XMS REPORT ---
:1955 External Reference #:[id number] Author Organization [employer] Address [address] [place] [address] [place] [address] Phone [phone] Care Team Providers Name Role Phone Gabbie Shell MD Primary Care Physician Unavailable Payers Type Date Identification Numbers Payment Provider Subscriber Commercial Effective: Policy Number: [id number] [employer] Maryam Guardado 2010 PayID: [id number] [address] [place] [address] Medigap Part B Expires: 2018 Policy Number: Medicare Price Guardado [id number] PayID: [id number] [address] [place] [address] Medigap Part B Expires: 2018 Policy Number: Medicare Price Guardado [id number] PayID: [id number] [address] [place] [address] Medigap Part B Expires: 2018 Policy Number: [employer] Insurance [facility] [id number] Rufinajuan francisco Group Number: [id number] [address] PayID: [id number] [place] [address] Workers Compensation Onset: 2015 Policy Number: Jorden Guardado [id number] Group Number: [id number] [address] PayID: [id number] [place] [address] Problems Date Description Provider Status Onset: 04/22/2018 Acute osteomyelitis of ankle Jose Juan King MD Active and/or foot Onset: 04/24/2018 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 Onset: 04/16/2018 Peripheral vascular disease Steffanie Suzie Bradley NP Active Onset: 04/16/2018 Type 2 diabetes w diabetic Steffanie Suzie Bradley NP Active 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 times per day Oxycodone HCL 04/24/ Active Tablets 5mg 15tabs 1 tab [facility] 2018 every 4-6 Fernando, hours as MD [...] 0000 24HR Humalog / Active Unknown 0000 Cefepime HCL / Active Solution 1gm grams Unknown 0000 Rec every 12 hours through [facility] Vancomycin HCL / Active Solution 1000mg iv every Unknown 0000 Rec 24 hours through [facility] Keflex 05/05/ Hx Capsules 250mg 30caps Take 1 [facility] 2017 - capsule Fernando, 06/09/ qid 2017 Clindamycin HCL 05/02/ Hx Capsules 300mg 30caps [...] 1 and 10/01 Paul Macario 2012 - qam and Dori, 10/01 qhs M.D. 2015 for 2 wks then 1 and 10/01 qam and 1 qhs for 2 wks then 1 and 10/01 bid Lantus Solostar / Hx Solution 100Unit/ML 5units inject 50 Unknown 0000 - units sc in 2017 morning, inject 7 units sc at hs Bupropion HCL / Hx Tablets ER 300mg 1 by Unknown ER (XL) 0000 - 24HR mouth every day 2017 Lamictal /00/ Hx (?) 1 po Unknown 0000 - daily 2012 Lipitor / Hx Tablets 20mg 90tabs one tab Unknown 0000 - po qhs 2015 Aspirin /00/ Hx 325mg 1 tab po Unknown 0000 - daily 2015 Clindamycin HCL 00/00/ Hx Capsules 300mg 1 capsule Unknown 0000 - by mouth 11/01/ 2016 times a day Cefazolin /00/ Hx Solution 1gm 2 gm iv Unknown Sodium 0000 - Rec every 8 02/17/ hours 2015 Percocet /00/ Hx Tablets 5-325mg 1 by Unknown 0000 - mouth 04/21/ every 4 2018 hours as needed pain Bentyl 00/00/ Hx Capsules 10mg take 1 Unknown 0000 - tablet by 11/02/ mouth 2016 with every meal Tramadol HCL /00/ Hx Tablets 50mg 1 tablets Unknown 0000 - every 6 04/06/ hours as 2016 needed Levofloxacin 00/00/ Hx Tablets 750mg Take 1 Unknown 0000 - Tablet By 04/21/ Mouth 2018 Every Day Clindamycin HCL 00/00/ Hx Capsules 300mg Take 1 Unknown 0000 - Capsule 04/21/ By Mouth 2018 Three Times Daily Metronidazole 00/00/ Hx Tablets 500mg Take 1 Unknown 0000 - Tablet By 04/21/ Mouth 2017 Three Times Daily Vital Signs Date Vital Result Comment 06/20/2018 Height 67 inches 5'7" Heart Rate 84 /min Respiratory Rate 12 /min Body Temperature 97.0 F Pain Level 0 06/16/2018 Height 67 inches 5'7" Weight 186.00 lb Heart Rate 80 /min BP Systolic Sitting 120 mmHg BP Diastolic Sitting 64 mmHg Respiratory Rate 14 /min Body Temperature 96.8 F BMI (Body Mass Index) 29.1 kg/m2 06/13/2018 Height 67 inches 5'7" Heart Rate 80 /min Respiratory Rate 20 /min Body Temperature 97.1 F Pain Level 0 06/06/2018 Height 65 inches 5'5" Weight 180.00 lb Heart Rate 80 /min BP Systolic 100 mmHg BP Diastolic 60 mmHg Respiratory Rate 14 /min Pain Level 0 BMI (Body Mass Index) 30.0 kg/m2 05/27/2018 Height 67 inches 5'7" Heart Rate [...] Test Date Test Result H/L Range Note Comp Metabolic Panel 06/17/2018 Sodium 133 mmol/L Low 135-145 Chloride 100 mmol/L Low 101-111 Co2 Carbon Dioxide 26 mmol/L 22-32 Blood Urea Nitrogen 21 mg/dL 6-24 Creatinine 1.64 mg/dL High 0.67-1.17 BUN/Creatinine Ratio 12.8 8-20 Calcium 9.4 mg/dL 8.6-10.3 Total Protein 6.6 g/dL 6.4-8.9 Albumin 3.8 g/dL 3.2-5.2 Globulin 2.8 g/dL 2-4 Albumin/Globulin Ratio 1.4 1-3 Total Bilirubin 0.40 mg/dL 0.2-1.0 Alkaline Phosphatase 75 U/L 34-104 Alt 25 U/L 7-52 Ast 27 U/L 13-39 Egfr Non- 42.5 >60 Egfr 51.4 >60 1 Potassium 5.3 mmol/L High 3.5-5.0 Anion Gap 7 mmol/L 2-11 Glucose 553 mg/dL High 70-100 2 Laboratory test finding 06/17/2018 Vancomycin Trough 21.6 g/mL C Reactive Protein 6.85 mg/L <8.01 Laboratory test finding 06/13/2018 C Difficile PCR SEE RESULT BELOW 3 CBC Auto Diff 06/11/2018 White Blood Count 6.9 10^3/uL 3.5-10.8 Red Blood Count 3.88 10^6/uL Low 4.00-5.40 Hemoglobin 11.4 g/dL Low 14.0-18.0 Hematocrit 33 % Low 42-52 Mean Corpuscular Volume 85 fL 80-94 Mean Corpuscular Hemoglobin 29 pg 27-31 Mean Corpuscular HGB Conc 35 g/dL 31-36 Red Cell Distribution Width 13 % 10.5-15 Platelet Count 185 10^3/uL 150-450 Mean Platelet Volume 8.0 um3 7.4-10.4 Abs Neutrophils 5.0 10^3/uL 1.5-7.7 Abs Lymphocytes 0.8 10^3/uL Low 1.0-4.8 Abs Monocytes 0.8 10^3/uL 0-0.8 Abs Eosinophils 0.2 10^3/uL 0-0.6 Abs Basophils 0.1 10^3/uL 0-0.2 Abs Nucleated RBC 0 10^3/uL Granulocyte % 72.8 % 38-83 Lymphocyte % 11.0 % Low 25-47 Monocyte % 11.4 % High 0-7 Eosinophil % 3.6 % 0-6 Basophil % 1.2 % 0-2 Nucleated Red Blood Cells % 0.1 Comp Metabolic Panel 06/11/2018 Sodium 137 mmol/L 135-145 Potassium 4.4 mmol/L 3.5-5.0 Chloride 102 mmol/L 101-111 Co2 Carbon Dioxide 25 mmol/L 22-32 Anion Gap 10 mmol/L 2-11 Glucose 227 mg/dL High 70-100 Blood Urea Nitrogen 17 mg/dL 6-24 Creatinine 1.59 mg/dL High 0.67-1.17 BUN/Creatinine Ratio 10.7 8-20 Calcium 9.3 mg/dL 8.6-10.3 Total Protein 6.4 g/dL 6.4-8.9 Albumin 3.7 g/dL 3.2-5.2 Globulin 2.7 g/dL 2-4 Albumin/Globulin Ratio 1.4 1-3 Total Bilirubin 0.50 mg/dL 0.2-1.0 Alkaline Phosphatase 87 U/L 34-104 Alt 17 U/L 7-52 Ast 14 U/L 13-39 Egfr Non- 44.1 >60 Egfr 53.3 >60 4 Laboratory test finding 06/11/2018 Vancomycin Trough 24.8 g/mL C Reactive Protein 4.81 mg/L <8.01 Laboratory test 04/24/2018 Point of Care 331 mg/dL High 70-100 5 finding Glucose Laboratory test 04/24/2018 Point of Care 281 mg/dL High 70-100 6 finding Glucose Laboratory test 04/24/2018 Point of Care 232 mg/dL High 70-100 7 finding Glucose Laboratory test 04/24/2018 Point of Care 234 mg/dL High 70-100 8 finding Glucose Laboratory test 04/24/2018 Surgical Pathology SEE RESULT BELOW 9 finding Comp Metabolic Panel 11/14/2015 Sodium 135 mmol/L [...] Egfr Non- 87.8 >60 Egfr 112.9 >60 10 Laboratory test finding 11/14/2015 C Reactive Protein 2.79 mg/L < 5.00 11 CBC Auto Diff 11/14/2015 White Blood Count [...] Sed Rate 66 mm/Hr High 0- 20 Laboratory test finding 11/08/2015 Erythrocyte Sed Rate 77 mm/Hr High 0- 20 CBC Auto Diff 11/08/2015 White Blood Count [...] Cells % 0.6 Laboratory test finding 11/08/2015 C Reactive Protein 4.89 mg/L < 5.00 12 Comp Metabolic Panel 11/08/2015 Sodium 135 mmol/L [...] Egfr Non- 82.3 >60 Egfr 105.9 >60 13 Comp Metabolic Panel 10/31/2015 Sodium 134 mmol/L [...] Egfr Non- 79.4 >60 Egfr 102.1 >60 14 Laboratory test finding 10/31/2015 C Reactive Protein 9.73 mg/L High < 5.00 15 CBC Auto Diff 10/31/2015 White Blood Count [...] Cells % 0.1 Laboratory test finding 10/31/2015 Erythrocyte Sed Rate 95 mm/Hr High 0- 20 CBC Auto Diff 10/24/2015 White Blood Count [...] Egfr Non- 71.6 >60 Egfr 92.0 >60 16 Laboratory test 10/24/2015 C Reactive Protein 15.74 mg/L High < 5.00 17 finding Laboratory test 10/13/2015 Point of Care 150 mg/dL High 74-106 18 finding Glucose Laboratory test 10/13/2015 Wound Culture/Sensi SEE RESULT BELOW 19 finding Tissue (BX) Culture & Gram St [...] RESULT BELOW 30 Laboratory test finding 10/13/2015 Wound Culture/Sensi SEE RESULT BELOW 31 Tissue (BX) Culture & Gram St SEE RESULT BELOW 32 MRSA/S. aureus Ssti PCR SEE RESULT BELOW 33 Anaerobic Culture SEE RESULT BELOW 34 Laboratory test finding 10/13/2015 Mycobacterial Culture See Comment 35 1 Because ethnic data is not always readily [...] 15-29 5 Kidney failure <15 (or dialysis) 2 Critical Result [id number] Called to GONSALO at: 13:25:55 by:[id number] Read back by: GONSALO 3 SEE RESULT BELOW Name: PRICE GUARDADO : [address]: Jamar Pérez MD Acct: [id number] Unit: [id number] AGE: 62 Location: [facility] Re06/13/18 SEX: M Status: REG REF SPEC: [id number] GABO: 06/13/18-[address]: Jamar Pérez MD REQ: [id number] RECD: 06/13/18 STATUS: COMP _ SOURCE: STOOL SPDESC: ORDERED: C. diff PCR Procedure Result Reported Site Stool Specimen Description Final 06/13/18- 1609 ML Stool Color Brown Stool Form Formed Stool Consistency Hard C. difficile PCR Final 06/13/18- 1609 ML Test not performed * ML - Main Lab . END OF REPORT DEPARTMENT OF PATHOLOGY, [address] [place] [address] Vinayak Yanez M.D. Director [facility] # [id number] 4 Because ethnic data is not always readily [...] 15-29 5 Kidney failure <15 (or dialysis) 5 Sexual Assault Counsellor: [id number] 6 Sexual Assault Counsellor: [id number] 7 Sexual Assault Counsellor: [id number] 8 Sexual Assault Counsellor: [id number] 9 SEE RESULT BELOW Name: PRICE GUARDADO : [address]: Jose Juan King MD Acct: [id number] Unit: [id number] AGE: 62 Location: [place] Re04/24/18 SEX: M Status: WINIFRED DIXON SPEC: [id number] GABO: 04/24/18- [facility] DR: Jose Juan King MD REQ: [id number] RECD: 04/24/18-7467 STATUS: SOUT _ ORDERED: [place], LEVEL 4 FINAL DIAGNOSIS Left great toe, [...] margin blue and plantar margin black, and livestock sales representative sections are submitted in cassettes A and B to include bone following decalcification in cassette A. Signed by and Reported on: Abby Ellis MD 04/29/18 1052 END OF REPORT DEPARTMENT OF PATHOLOGY, [address] [place] [address] Vinayak Yanez M.D. Director [facility] # [id number] 10 Because ethnic data is not always readily [...] 15-29 5 Kidney failure <15 (or dialysis) 11 Acute inflammation: >10.00 12 Acute inflammation: >10.00 13 Because ethnic data is not always readily [...] 15-29 5 Kidney failure <15 (or dialysis) 14 Because ethnic data is not always readily [...] 15-29 5 Kidney failure <15 (or dialysis) 15 Acute inflammation: >10.00 16 Because ethnic data is not always [...] (or dialysis) 17 Acute inflammation: >10.00 18 Sexual Assault Counsellor: [id number] FERNANDO PETTIT 19 SEE RESULT BELOW Name: PRICE GUARDADO : [address]: Jessie Lazar MD Acct: [id number] Unit: [id number] AGE: 60 Location: [facility] Re10/13/15 SEX: M Status: REG SDC SPEC: [id number] GABO: 10/13/15-1640 [facility] DR: Jessie Lazar MD REQ: [id number] RECD: 10/13/15071 STATUS: RES OT DR: Gabbie Shell MD [...] Direct PENDING * ML - MAIN LAB ([facility]) . END OF REPORT * ML=Testing performed at Main Lab DEPARTMENT OF PATHOLOGY, [address] [place] [address] Vinayak Yanez M.D. Director [facility] # [id number] 20 SEE RESULT BELOW Name: PRICE GUARDADO : [address]: Jessie Lazar MD Acct: [id number] Unit: [id number] AGE: 60 Location: [facility] 338-01 Re10/13/15 Dis: 10/19/15 SEX: M Status: DIS IN SPEC: [id number] GABO: 10/13/15-1640 [facility] DR: Jessie Lazar MD REQ: [id number] RECD: 10/13/15 STATUS: RES OTHR DR: Gabbie Shell MD _ SOURCE: WOUND SPDESC:KNEE LEFT ORDERED: Tissue Cult/GS/R, Fungal - Other/R, Acid Fast Stain/U COMMENTS: CLOSTRIDIUM FINDINGS IN ADDITION TO S. AUREUS: Verbal to DR. SHELL by [id number] at 1411 on 10/15/15. Results read back [...] performed at Main Lab DEPARTMENT OF PATHOLOGY, [address] [place] [address] Vinayak Yanez M.D. Director [facility] # [id number] Patient: PRICE GUARDADO [id number] (Continued) Specimen: [id number] Collected: 10/13/15-1639 Received: 10/13/15175 (Continued) Procedure Result Reported Site Acid Fast Stain - Direct Final (continued) 10/14/15817 Due to limited sensitivity of the smear, results should be used as an adjunct in evaluating the patient's status and cultural examination is highly recommended for diagnosis. * ML - MAIN LAB ([facility]) . END OF REPORT * ML=Testing performed at Main Lab DEPARTMENT OF PATHOLOGY, [address] [place] [address] Vinayak Yanez M.D. Director [facility] # [id number] 21 SEE RESULT BELOW Name: PRICE GUARDADO : [address]: Jessie Lazar MD Acct: [id number] Unit: [id number] AGE: 60 Location: [facility] 338- Re10/13/15 SEX: M Status: ADM IN SPEC: [id number] GABO: 10/13/15-[address]: Jessie Lazar MD REQ: [id number] RECD: 10/13/15 STATUS: RES OTHR DR: Gabbie Shell MD _ SOURCE: WOUND SPDESC:KNEE LEFT ORDERED: Anaerobic Cult/R, MRSA/SA SSTI/R, Culture Stain/R, Fungal - Other /R, Acid Fast Stain/U COMMENTS: Verbal to GEMINI CHAWLA by [id number] at 2020 on 10/13/15. Results read back [...] performed at Main Lab DEPARTMENT OF PATHOLOGY, [address] [place] [address] Vinayak Yanez M.D. Director [facility] # [id number] Patient: PRICE GUARDADO [id number] (Continued) Specimen: [id number] Collected: 10/13/15 Received: 10/13/15 (Continued) Procedure Result Reported Site Acid Fast Stain - Direct Final (continued) 10/14/15- 08 Due to limited sensitivity of the smear, results should be used as an adjunct in evaluating the patient's status and cultural examination is highly recommended for diagnosis. * ML - MAIN LAB ([facility]) . END OF REPORT * ML=Testing performed at Main Lab DEPARTMENT OF PATHOLOGY, [address] [place] [address] Vinayak Yanez M.D. Director [facility] # [id number] 22 SEE RESULT BELOW Name: PRICE GUARDADO : [address]: Jessie Lazar MD Acct: [id number] Unit: [id number] AGE: 60 Location: [facility] 338-01 Re10/13/15 Dis: 10/19/15 SEX: M Status: DIS IN SPEC: [id number] GABO: 10/13/15-[address]: Jessie Lazar MD REQ: [id number] RECD: 10/13/15 STATUS: RES OTHR DR: Gabbie Shell MD _ SOURCE: WOUND SPDESC:KNEE LEFT ORDERED: Anaerobic Cult/R, MRSA/SA SSTI/R, Culture Stain/R, Fungal - Other /R, Acid Fast Stain/U COMMENTS: Verbal to GEMINI AMY CHAWLA by [id number] at 2020 on 10/13/15. Results read back accurately. CLOSTRIDIUM FINDINGS IN ADDITION TO S. AUREUS: Verbal to DR. SHELL by [id number] at 1411 on 10/15/15. Results read back [...] S.AUREUS POSITIVE Wound/Misc Gram Stain Final 10/15/15- 46 ML 3+ Neutrophils 4+ Gram Positive Cocci 3+ Gram Positive Bacilli 1+ Gram Negative Bacilli Wound/Misc Culture Final 10/15/15- 0846 ML CONTINUED ON NEXT PAGE * ML=Testing performed at Main Lab DEPARTMENT OF PATHOLOGY, [address] [place] [address] Vinayak Yanez M.D. Director [facility] # [id number] Patient: PRICE GUARDADO [id number] (Continued) Specimen: [id number] Collected: 10/13/15 Received: 10/13/15 (Continued) Procedure Result Reported Site Wound/Misc Culture Final (continued) 10/15/1546 Organism 1 STAPHYLOCOCCUS AUREUS Quantity 3+ 1. [...] These antibiotics are not available in the [facility] Formulary Contact the Microbiology Department for any additional antibiotic reporting. Fungal Cult - Other Sources Preliminary 10/24/15- 1325 ML Fungal Culture No Growth of Mycotic Organisms 1 week Acid Fast Stain - Direct Final 10/14/15- 0810 ML CONTINUED ON NEXT PAGE * ML=Testing performed at Main Lab DEPARTMENT OF PATHOLOGY, [address] [place] [address] Vinayak Yanez M.D. Director [facility] # [id number] Patient: PRICE GUARDADO [id number] (Continued) Specimen: [id number] Collected: 10/13/15-1639 Received: 10/13/15 (Continued) Procedure Result Reported Site Acid Fast Stain - Direct Final (continued) 10/14/15809 AFB Smear Result No Acid Fast Bacillus Present (Negative) Preparation By Direct Smear Due to limited sensitivity of the smear, results should be used as an adjunct in evaluating the patient's status and cultural examination is highly recommended for diagnosis. * ML - MAIN LAB ([facility]) . END OF REPORT * ML=Testing performed at Main Lab DEPARTMENT OF PATHOLOGY, [address] [place] [address] Vinayak Yanez M.D. Director [facility] # [id number] 23 SEE RESULT BELOW Name: PRICE GUARDADO : [address]: Jessie Lazar MD Acct: [id number] Unit: [id number] AGE: 60 Location: [facility] Re10/13/15 SEX: M Status: REG SDC SPEC: [id number] GABO: 10/13/15-1640 [facility] DR: Jessie Lazar MD REQ: [id number] RECD: 10/13/15 STATUS: RES OTHR DR: Gabbie [...] Direct PENDING * ML - MAIN LAB ([facility]) . END OF REPORT * ML=Testing performed at Main Lab DEPARTMENT OF PATHOLOGY, [address] [place] [address] Vinayak Yanez M.D. Director [facility] # [id number] 24 SEE RESULT BELOW Name: PRICE GUARDADO : [address]: Jessie Lazar MD Acct: [id number] Unit: [id number] AGE: 60 Location: [facility] 338-01 Re10/13/15 Dis: 10/19/15 SEX: M Status: DIS IN SPEC: [id number] GABO: 10/13/15-[address]: Jessie Lazar MD REQ: [id number] RECD: 10/13/15 STATUS: RES OTHR DR: Gabbie Shell MD _ SOURCE: WOUND SPDESC:KNEE LEFT ORDERED: Tissue Cult/GS/R, Fungal - Other/R, Acid Fast Stain/U COMMENTS: CLOSTRIDIUM FINDINGS IN ADDITION TO S. AUREUS: Verbal to DR. SHELL by [id number] at 1411 on 10/15/15. Results read back [...] performed at Main Lab DEPARTMENT OF PATHOLOGY, [address] [place] [address] Vinayak Yanez M.D. Director [facility] # [id number] Patient: PRICE GUARDADO [id number] (Continued) Specimen: [id number] Collected: 10/13/15 Received: 10/13/15 (Continued) Procedure Result Reported Site Acid Fast Stain - Direct Final (continued) 10/14/15817 Due to limited sensitivity of the smear, results should be used as an adjunct in evaluating the patient's status and cultural examination is highly recommended for diagnosis. * ML - MAIN LAB ([facility]) . END OF REPORT * ML=Testing performed at Main Lab DEPARTMENT OF PATHOLOGY, [address] [place] [address] Vinayak Yanez M.D. Director [facility] # [id number] 25 SEE RESULT BELOW Name: PRICE GUARDADO : [address]: Jessie Lazar MD Acct: [id number] Unit: [id number] AGE: 60 Location: [facility] 338-01 Re10/13/15 SEX: M Status: ADM IN SPEC: [id number] GABO: 10/13/15-1640 [facility] DR: Jessie Lazar MD REQ: [id number] RECD: 10/13/151754 STATUS: RES OTHR DR: Gabbie Shell MD _ SOURCE: WOUND SPDESC:KNEE LEFT ORDERED: Anaerobic Cult/R, MRSA/SA SSTI/R, Culture Stain/R, Fungal - Other /R, Acid Fast Stain/U COMMENTS: Verbal to GEMINI REYES CAMMY by [id number] at 2020 on 10/13/15. Results read back [...] performed at Main Lab DEPARTMENT OF PATHOLOGY, [address] [place] [address] Vinayak Yanez M.D. Director [facility] # [id number] Patient: PRICE GUARDADO [id number] (Continued) Specimen: [id number] Collected: 10/13/15-1639 Received: 10/13/15 (Continued) Procedure Result Reported Site Acid Fast Stain - Direct Final (continued) 10/14/15809 Due to limited sensitivity of the smear, results should be used as an adjunct in evaluating the patient's status and cultural examination is highly recommended for diagnosis. * ML - MAIN LAB ([facility]) . END OF REPORT * ML=Testing performed at Main Lab DEPARTMENT OF PATHOLOGY, [address] [place] [address] Vinayak Yanez M.D. Director [facility] # [id number] 26 SEE RESULT BELOW Name: PRICE GUARDADO : [address]: Jessie Lazar MD Acct: [id number] Unit: [id number] AGE: 60 Location: [place] [address] Re10/13/15 Dis: 10/19/15 SEX: M Status: DIS IN SPEC: [id number] GABO: 10/13/15-1640 [facility] DR: Jessie Lazar MD REQ: [id number] RECD: 10/13/15701 STATUS: RES OTHR DR: Gabbie Shell MD _ SOURCE: WOUND SPDESC:KNEE LEFT ORDERED: Anaerobic Cult/R, MRSA/SA SSTI/R, Culture Stain/R, Fungal - Other /R, Acid Fast Stain/U COMMENTS: Verbal to GEMINI CHAWLA by [id number] at 2020 on 10/13/15. Results read back accurately. CLOSTRIDIUM FINDINGS IN ADDITION TO S. AUREUS: Verbal to DR. SHELL by [id number] at 1411 on 10/15/15. Results read back [...] performed at Main Lab DEPARTMENT OF PATHOLOGY, [address] [place] [address] Vinayak Yanez M.D. Director [facility] # [id number] Patient: PRICE GUARDADO [id number] (Continued) Specimen: [id number] Collected: 10/13/15-1639 Received: 10/13/15 (Continued) Procedure Result [...] These antibiotics are not available in the [facility] Formulary Contact the Microbiology Department for any additional antibiotic reporting. Fungal Cult - Other Sources Preliminary 10/31/15- 1443 ML Fungal Culture No Growth of Mycotic Organisms 2 weeks Acid Fast Stain - Direct Final 10/14/15- 0810 ML CONTINUED ON NEXT PAGE * ML=Testing performed at Main Lab DEPARTMENT OF PATHOLOGY, [address] [place] [address] Vinayak Yanez M.D. Director [facility] # [id number] Patient: PRICE GUARDADO [id number] (Continued) Specimen: [id number] Collected: 10/13/15 Received: 10/13/15-175 (Continued) Procedure Result Reported Site Acid Fast Stain - Direct Final (continued) 10/14/15- 809 AFB Smear Result No Acid Fast Bacillus Present (Negative) Preparation By Direct Smear Due to limited sensitivity of the smear, results should be used as an adjunct in evaluating the patient's status and cultural examination is highly recommended for diagnosis. * ML - MAIN LAB ([facility]) . END OF REPORT * ML=Testing performed at Main Lab DEPARTMENT OF PATHOLOGY, [address] [place] [address] Vinayak Yanez M.D. Director [facility] # [id number] 27 SEE RESULT BELOW Name: PRICE GUARDADO : [address]: Jessie Lazar MD Acct: [id number] Unit: [id number] AGE: 60 Location: [facility] Re10/13/15 SEX: M Status: REG [facility] SPEC: [id number] GABO: 10/13/15-[address]: Jessie Lazar MD REQ: [id number] RECD: 10/13/15 STATUS: RES OTHR DR: Gabbie [...] Direct PENDING * ML - MAIN LAB ([facility]) . END OF REPORT * ML=Testing performed at Main Lab DEPARTMENT OF PATHOLOGY, [address] [place] [address] Vinayak Yanez M.D. Director [facility] # [id number] 28 SEE RESULT BELOW Name: DEBBYPRICE : [address]: Jessie Lazar MD Acct: [id number] Unit: [id number] AGE: 60 Location: [place] [address]- Re10/13/15 Dis: 10/19/15 SEX: M Status: DIS IN SPEC: [id number] GABO: 10/13/15-1640 [facility] DR: Jessie Lazar MD REQ: [id number] RECD: 10/13/15 STATUS: RES OTHR DR: Gabbie Shell MD _ SOURCE: WOUND SPDESC:KNEE LEFT ORDERED: Tissue Cult/GS/R, Fungal - Other/R, Acid Fast Stain/U COMMENTS: CLOSTRIDIUM FINDINGS IN ADDITION TO S. AUREUS: Verbal to DR. SHELL by [id number] at 1411 on 10/15/15. Results read back [...] performed at Main Lab DEPARTMENT OF PATHOLOGY, [address] [place] [address] Vinayak Yanez M.D. Director [facility] # [id number] Patient: PRICE GUARDADO [id number] (Continued) Specimen: [id number] Collected: 10/13/15-1639 Received: 10/13/15 (Continued) Procedure Result Reported Site Acid Fast Stain - Direct Final (continued) 10/14/15817 Due to limited sensitivity of the smear, results should be used as an adjunct in evaluating the patient's status and cultural examination is highly recommended for diagnosis. * ML - MAIN LAB ([facility]) . END OF REPORT * ML=Testing performed at Main Lab DEPARTMENT OF PATHOLOGY, [address] [place] [address] Vinayak Yanez M.D. Director [facility] # [id number] 29 SEE RESULT BELOW Name: PRICE GUARDADO : [address]: Jessie Lazar MD Acct: [id number] Unit: [id number] AGE: 60 Location: [place] [address] Re10/13/15 SEX: M Status: ADM IN SPEC: [id number] GABO: 10/13/15-1640 [facility] DR: Jessie Lazar MD REQ: [id number] RECD: 10/13/15 STATUS: RES OTHR DR: Gabbie Shell MD _ SOURCE: WOUND SPDESC:KNEE LEFT ORDERED: Anaerobic Cult/R, MRSA/SA SSTI/R, Culture Stain/R, Fungal - Other /R, Acid Fast Stain/U COMMENTS: Verbal to GEMINI CHAWLA by [id number] at 2020 on 10/13/15. Results read back [...] performed at Main Lab DEPARTMENT OF PATHOLOGY, [address] [place] [address] Vinayak Yanez M.D. Director [facility] # [id number] Patient: PRICE GUARDADO [id number] (Continued) Specimen: [id number] Collected: 10/13/15 Received: 10/13/15 (Continued) Procedure Result Reported Site Acid Fast Stain - Direct Final (continued) 10/14/15809 Due to limited sensitivity of the smear, results should be used as an adjunct in evaluating the patient's status and cultural examination is highly recommended for diagnosis. * ML - MAIN LAB ([facility]) . END OF REPORT * ML=Testing performed at Main Lab DEPARTMENT OF PATHOLOGY, [address] [place] [address] Vinayak Yanez M.D. Director [facility] # [id number] 30 SEE RESULT BELOW Name: PRICE GUARDADO : [address]: Jessie Lazar MD Acct: [id number] Unit: [id number] AGE: 60 Location: [facility] 338-01 Re10/13/15 Dis: 10/19/15 SEX: M Status: DIS IN SPEC: [id number] GABO: 10/13/15-1640 [facility] DR: Jessie Lazar MD REQ: [id number] RECD: 10/13/15175 STATUS: RES OTHR DR: Gabbie Shell MD _ SOURCE: WOUND SPDESC:KNEE LEFT ORDERED: Anaerobic Cult/R, MRSA/SA SSTI/R, Culture Stain/R, Fungal - Other /R, Acid Fast Stain/U COMMENTS: Verbal to GEMINI CHAWLA by [id number] at 2020 on 10/13/15. Results read back accurately. CLOSTRIDIUM FINDINGS IN ADDITION TO S. AUREUS: Verbal to DR. SHELL by [id number] at 1411 on 10/15/15. Results read back [...] performed at Main Lab DEPARTMENT OF PATHOLOGY, [address] [place] [address] Vinayak Yanez M.D. Director [facility] # [id number] Patient: PRICE GUARDADO [id number] (Continued) Specimen: [id number] Collected: 10/13/15 Received: 10/13/15 (Continued) Procedure Result Reported Site Wound/Misc Culture Final (continued) 10/15/15- 46 Organism 1 STAPHYLOCOCCUS AUREUS Quantity 3+ 1. [...] These antibiotics are not available in the [facility] Formulary Contact the Microbiology Department for any additional antibiotic reporting. Fungal Cult - Other Sources Preliminary 11/07/15- 1229 ML Fungal Culture No Growth of Mycotic Organisms 3 weeks Acid Fast Stain - Direct Final 10/14/15- 0810 ML CONTINUED ON NEXT PAGE * ML=Testing performed at Main Lab DEPARTMENT OF PATHOLOGY, [address] [place] [address] Vinayak Yanez M.D. Director [facility] # [id number] Patient: PRICE GUARDADO [id number] (Continued) Specimen: [id number] Collected: 10/13/15-1639 Received: 10/13/15 (Continued) Procedure Result Reported Site Acid Fast Stain - Direct Final (continued) 10/14/15809 AFB Smear Result No Acid Fast Bacillus Present (Negative) Preparation By Direct Smear Due to limited sensitivity of the smear, results should be used as an adjunct in evaluating the patient's status and cultural examination is highly recommended for diagnosis. * ML - MAIN LAB ([facility]) . END OF REPORT * ML=Testing performed at Main Lab DEPARTMENT OF PATHOLOGY, [address] [place] [address] Vinayak Yanez M.D. Director [facility] # [id number] 31 SEE RESULT BELOW Name: DEBBYPRICE : [address]: Jessie Lazar MD Acct: [id number] Unit: [id number] AGE: 60 Location: [facility] Re10/13/15 SEX: M Status: REG SDC SPEC: [id number] GABO: 10/13/15-1640 [facility] DR: Jessie Lazar MD REQ: [id number] RECD: 10/13/15 STATUS: RES OTHR DR: Gabbie [...] Direct PENDING * ML - MAIN LAB ([facility]) . END OF REPORT * ML=Testing performed at Main Lab DEPARTMENT OF PATHOLOGY, [address] [place] [address] Vinayak Yanez M.D. Director [facility] # [id number] 32 SEE RESULT BELOW Name: PRICE GUARDADO : [address]: Jessie Lazar MD Acct: [id number] Unit: [id number] AGE: 60 Location: [facility] 338-01 Re10/13/15 Dis: 10/19/15 SEX: M Status: DIS IN SPEC: [id number] GABO: 10/13/15-[address]: Jessie Lazar MD REQ: [id number] RECD: 10/13/15 STATUS: COMP HR DR: Gabbie Shell MD _ SOURCE: WOUND SPDESC:KNEE LEFT ORDERED: Tissue Cult/GS/R, Fungal - Other/R, Acid Fast Stain/U COMMENTS: CLOSTRIDIUM FINDINGS IN ADDITION TO S. AUREUS: Verbal to DR. SHELL by [id number] at 1411 on 10/15/15. Results read back [...] performed at Main Lab DEPARTMENT OF PATHOLOGY, [address] [place] [address] Vinayak Yanez M.D. Director [facility] # [id number] Patient: PRICE GUARDADO [id number] (Continued) Specimen: [id number] Collected: 10/13/15 Received: 10/13/15175 (Continued) Procedure Result Reported Site Acid Fast Stain - Direct Final (continued) 10/14/15- 08 Due to limited sensitivity of the smear, results should be used as an adjunct in evaluating the patient's status and cultural examination is highly recommended for diagnosis. * ML - MAIN LAB ([facility]) . END OF REPORT * ML=Testing performed at Main Lab DEPARTMENT OF PATHOLOGY, [address] [place] [address] Vinayak Yanez M.D. Director [facility] # [id number] 33 SEE RESULT BELOW Name: PRICE GUARDADO : [address]: Jessie Lazar MD Acct: [id number] Unit: [id number] AGE: 60 Location: [facility] 338-01 Re10/13/15 SEX: M Status: ADM IN SPEC: [id number] GABO: 10/13/15-[address] [place] [address] DR: Jessie Lazar MD REQ: [id number] RECD: 10/13/154028 STATUS: RES OTHR DR: Gabbie Shell MD _ SOURCE: WOUND SPDESC:KNEE LEFT ORDERED: Anaerobic Cult/R, MRSA/SA SSTI/R, Culture Stain/R, Fungal - Other /R, Acid Fast Stain/U COMMENTS: Verbal to GEMINI HASKINSZONIA CHAWLA by [id number] at 2020 on 10/13/15. Results read back [...] performed at Main Lab DEPARTMENT OF PATHOLOGY, [address] [place] [address] Vinayak Yanez M.D. Director [facility] # [id number] Patient: PRICE GUARDADO [id number] (Continued) Specimen: [id number] Collected: 10/13/15 Received: 10/13/15 (Continued) Procedure Result Reported Site Acid Fast Stain - Direct Final (continued) 10/14/15809 Due to limited sensitivity of the smear, results should be used as an adjunct in evaluating the patient's status and cultural examination is highly recommended for diagnosis. * ML - MAIN LAB ([facility]) . END OF REPORT * ML=Testing performed at Main Lab DEPARTMENT OF PATHOLOGY, [address] [place] [address] Vinayak Yanez M.D. Director [facility] # [id number] 34 SEE RESULT BELOW Name: PRICE GUARDADO : [address]: Jessie Lazar MD Acct: [id number] Unit: [id number] AGE: 60 Location: [place] [address]- Re10/13/15 Dis: 10/19/15 SEX: M Status: DIS IN SPEC: [id number] GABO: 10/13/15-1640 [facility] DR: Jessie Lazar MD REQ: [id number] RECD: 10/13/15162 STATUS: DOLORES CARLOS DR: Gabbie Shell MD _ SOURCE: WOUND SPDESC:KNEE LEFT ORDERED: Anaerobic Cult/R, MRSA/SA SSTI/R, Culture Stain/R, Fungal - Other /R, Acid Fast Stain/U COMMENTS: Verbal to GEMINI CHAWLA by [id number] at 2020 on 10/13/15. Results read back accurately. CLOSTRIDIUM FINDINGS IN ADDITION TO S. AUREUS: Verbal to DR. SHELL by [id number] at 1411 on 10/15/15. Results read back [...] performed at Main Lab DEPARTMENT OF PATHOLOGY, [address] [place] [address] Vinayak Yanez M.D. Director [facility] # [id number] Patient: PRICE GUARDADO [id number] (Continued) Specimen: [id number] Collected: 10/13/15-1639 Received: 10/13/15 (Continued) Procedure Result [...] These antibiotics are not available in the [facility] Formulary Contact the Microbiology Department for any additional antibiotic reporting. Fungal Cult - Other Sources Final 11/14/15- 1427 ML Fungal Culture No Growth of Mycotic Organisms 4 weeks Acid Fast Stain - Direct Final 10/14/15- 0810 ML CONTINUED ON NEXT PAGE * ML=Testing performed at Main Lab DEPARTMENT OF PATHOLOGY, [address] [place] [address] Vinayak Yanez M.D. Director [facility] # [id number] Patient: PRICE GUARDADO [id number] (Continued) Specimen: [id number] Collected: 10/13/15 Received: 10/13/15-1753 (Continued) Procedure Result Reported Site Acid Fast Stain - Direct Final (continued) 10/14/15- 08 AFB Smear Result No Acid Fast Bacillus Present (Negative) Preparation By Direct Smear Due to limited sensitivity of the smear, results should be used as an adjunct in evaluating the patient's status and cultural examination is highly recommended for diagnosis. * ML - MAIN LAB ([facility]) . END OF REPORT * ML=Testing performed at Main Lab DEPARTMENT OF PATHOLOGY, [address] [place] [address] Vinayak Yanez M.D. Director [facility] # [id number] 35 SOURCE: KNEE, KNEE WOUND SWAB MYCOBACTERIAL CULTURE FINAL No growth after 60 days of incubation. Test Performed by: [facility] [place] [address] Tongue And Groove Machine Setter: Cam Isidro II, M.D., Ph.D. Procedures Date CPT Code Description Status 05/29/2018 49894 Incision Bone Cortex Foot Completed 05/29/2018 96801 Incision Bone Cortex Foot Completed 05/29/2018 43323 Layer Closure Of Wounds 2.6CM - 7.5CM Completed Neck,Hands,Feet,Genitalia 05/29/2018 04216 Layer Closure Of Wounds 2.6CM - 7.5CM Completed Neck,Hands,Feet,Genitalia 05/29/2018 64650 Debridement Tissue/Muscle/Bone Completed 05/29/2018 42063 Debridement Tissue/Muscle/Bone Completed 04/24/2018 62735 Amputation,Toe;Interphalangeal Joint Completed 04/24/2018 01192 Amputation,Toe;Interphalangeal Joint Completed 04/24/2018 93839 Amputation,Toe;Interphalangeal Joint Completed 04/24/2018 63427 Amputation,Toe;Interphalangeal Joint Completed 04/24/2018 13314 Amputation,Toe;Interphalangeal Joint Completed 04/18/2018 65972 Revascularization,Endovascular W/Atherectomy, Inc Completed Angioplasty 04/18/2018 94128 Revascularization,Endovascular W/Atherectomy, Inc Completed Angioplasty 04/18/2018 46637 Angio Extremity, Bilateral Completed 04/18/2018 39230 Ultrasound Guidance For Vascular Access Completed 04/18/2018 71198 Moderate Sedation Services; Same Phys Intl 15 Mins; PT Completed >=5 Years 04/18/2018 40091 Moderate Sedation Services; Same Phys Each Additional Completed 15 Mins 12/10/2016 18142 ECHO Transthorasic Realtime 2D W Doppler & Color Flow Completed [facility] 12/09/2016 54041 EKG, Interpretation Only Completed 01/10/2016 98241 Treadmill Interp/Report Only Completed 01/10/2016 62355 Stress Test Supervsn W/Out I/R Completed 10/15/2015 08657 Arthroscopy,Knee For Infection,Lavage & Drainage Completed 10/15/2015 58942 Arthroscopy,Knee For Infection,Lavage & Drainage Completed 10/15/2015 78452 Arthroscopy,Knee For Infection,Lavage & Drainage Completed 10/15/2015 61579 Arthroscopy,Knee For Infection,Lavage & Drainage Completed 10/13/2015 97389 Arthroscopy,Knee,Meniscectomy Medial Or Lateral Completed 10/13/2015 23081 Arthroscopy,Knee,Meniscectomy Medial Or Lateral Completed 10/13/2015 19269 Arthroscopy,Knee For Infection,Lavage & Drainage Completed 05/18/2013 39872 EEG Recording Awake & Asleep Completed 03/13/2013 08853 Color Flow Doppler/Interp & Reprt Completed 03/13/2013 26422 Pulse Wave/Continuous-Interp.RPT Completed 03/13/2013 19424 Echocardiography, Transesophageal, Real Time W/Image 2D Completed W/W/O M-M Encounters Type Date Location Provider CPT E/M Dx [facility] [address] T87.44 1:20p Infectious Diseases Gabrielle Pérez T81.31xA I73.9 Z79.2 R19.7 E11.51 E11.69 Office Visit 06/04/2018 1:00p [facility] Jamar Pérez, 13272 T87.44 Infectious Diseases M.D. E11.69 M86.172 Z89.412 Office Visit 06/03/2018 2:51p [facility] 29603 T81.31xD Assoc,pc Hospitalists Kirk, SUPERVISOR HOUSECLEANER F32.9 N17.9 E11.9 I73.9 Office Visit 06/02/2018 2:50p [facility] 58755 T81.31xD Assoc,pc Hospitalists Doto, SUPERVISOR HOUSECLEANER F32.9 N17.9 E11.9 I73.9 Office Visit 06/01/2018 2:50p [facility] 03049 T81.31xD Assoc,pc Hospitalists Kirk, SUPERVISOR HOUSECLEANER F32.9 N17.9 E11.9 I73.9 Office Visit 05/31/2018 2:50p [facility] 94280 T81.31xA Assoc,pc Hospitalists Kirk, SUPERVISOR HOUSECLEANER F32.9 N17.9 E11.9 I73.9 Office Visit 05/30/2018 2:49p [facility], 61579 T81.31xD Assoc, Hospitalists SUPERVISOR HOUSECLEANER I73.9 E11.9 Office Visit 05/29/2018 2:49p [facility], 72041 T81.31xD Assoc, Hospitalists SUPERVISOR HOUSECLEANER N17.9 I73.9 E11.9 Office Visit 05/28/2018 12:39p [facility] Jamar Pérez, 37438 T87.81 Infectious Diseases M.DAdrianna T87.44 Z89.412 E11.69 M86.172 Office Visit 05/28/2018 2:48p [facility], 65968 T81.31xD Assoc, Hospitalists SUPERVISOR HOUSECLEANER N17.9 I73.9 E11.9 Office Visit 05/28/2018 2:17p [facility] Rea 30324 L03.116 C.M.AAdrianna T81.31xA Office Visit 05/27/2018 2:48p [facility] Tiffanie Hope, 24642 T81.31xD Assoc, Hospitalists SUPERVISOR HOUSECLEANER Z89.412 E11.52 Z79.4 I73.9 Z71.6 Office Visit 05/08/2018 1:40p [facility] Madalyn Jordan 66343 Z89.412 Infectious Diseases Gabrielle Pérez E11.52 Office Visit 04/22/2018 1:30p [facility] [place] [address] M86.172 C.M.A. Office Visit 04/19/2018 9:33a [facility] [place] [address] Z47.89 C.M.A. Office Visit 04/19/2018 11:31a [facility] [place] [address] L97.513 Assoc,pc Hospitalists E11.52 I73.9 Office Visit 04/18/2018 11:30a [facility] Aldo Lambert, 91921 L97.513 Assoc,pc Hospitalists PA E11.52 I73.9 F32.9 G25.0 Office Visit 04/17/2018 11:30a [facility] Assoc, Joe Ramírez, 78383 L97.513 Hospitalists Gabrielle E11.52 Office Visit 04/16/2018 1:09p [facility] Assoc,pc Steffanie Larsen 70918 I73.9 Hospitalists MARJORIE Bradley E11.51 Office Visit 04/16/2018 9:11a [facility] Vascular Medicine Richardson Mahan, 16810 I70.213 Of Pal Anthony M87.878 Office Visit 04/15/2018 2:11p [facility] 54637 M87.078 C.M.A. L03.032 Office Visit 04/15/2018 11:29a [facility]oc, [place] [address] L97.513 Hospitalists E11.9 F32.9 Office Visit 04/15/2018 12:44p [facility] Jamar Pérez, 89985 E11.52 Infectious Diseases Gabrielle Z86.73 Office Visit 12/10/2016 2:49p [facility] [place] [address] G45.9 Office Visit 12/10/2016 3:56p [facility] Tiffanie Hope, 66875 R07.2 Hospitalists SUPERVISOR HOUSECLEANER R55 E11.9 G45.9 Office Visit 12/09/2016 3:55p [facility], [address] R55 Hospitalists MFreda R07.2 E11.9 G45.9 Office Visit 12/09/2016 1:48p [facility] Saekaila Cavazosleatha, 03884 G45.9 M.D. Office Visit 01/10/2016 12:51p [facility] Sadie 47793 R07.9 Hospitalists Xavier harrison NP N17.9 E11.9 I10 Office Visit 01/09/2016 12:50p [facility], Estefanía Lewis N.Robert. 43169 R07.9 Hospitalists E11.9 N17.9 I10 Office Visit 11/30/2015 3:20p [facility] Madalyn Jordan 54623 M00.062 Infectious Noé Pérez M.D. Office Visit 11/16/2015 3:20p [facility] Madalyn Jordan 82956 M00.062 Infectious Noé Pérez M.D. B96.7 Office Visit 11/03/2015 2:00p [facility] Madalyn Jordan 50892 M00.062 Infectious Noé Pérez M.D. M00.062 Office Visit 10/19/2015 9:02a [facility] Madalyn Joradn 87695 M00.062 Infectious Noé Pérez M.D. L02.416 Office Visit 10/19/2015 10:02a [facility] [place] [address] M00.062 Assoc, Hospitalists B96.7 E11.8 Office Visit 10/18/2015 8:56a [facility] Madalyn Jordan 17716 M00.062 Infectious Noé Pérez M.D. R19.7 V99.xxxA B96.7 Office Visit 10/18/2015 10:02a [facility], Sanchez Shell, 51178 M00.062 Hospitalists Gabrielle E11.8 B96.7 Office Visit 10/17/2015 10:01a [facility], Sanchez Hobart, 59683 M00.062 Hospitalists Gabrielle B96.7 E11.8 Office Visit 10/16/2015 10:00a [facility], Sanchez [place], 64336 M00.062 Hospitalists Gabrielle B96.7 E11.8 Office Visit 10/15/2015 10:00a [facility], Sanchez [place], 11045 M00.062 Hospitalists Gabrielle B96.7 E11.8 Office Visit 10/14/2015 9:59a [facility], Nasima Colmenares, 09866 M00.062 Hospitalists D.O. E11.8 Office Visit 10/13/2015 9:58a [facility] Tiffanie Hope, 67857 M00.062 Assoc, Hospitalists SUPERVISOR HOUSECLEANER E11.8 Office Visit 10/13/2015 7:00a [facility] [place] [address] M25.562 C.M.A. M25.462 S81.012A B96.89 Office Visit 07/29/2013 8:30a [facility] Paul [place], 19675 333.1 Services Of Yard Conductor M.D. Office Visit 06/19/2013 11:30a [facility] [place], 05731 437.9 Services Of Yard Conductor M.D. Office Visit 05/12/2013 10:45a [facility] [place], 27040 345.40 Services Of Yard Conductor M.D. 438.89 331.83 Office Visit 03/13/2013 12:53p [facility] Sanchez [place], 53102 435.9 Services Of Yard Conductor M.D. Office Visit 03/13/2013 2:43p [facility] Nasima Colmenares, 53309 784.51 Assoc, Hospitalists D.O. 272.2 435.9 305.1 Office Visit 03/12/2013 12:52p [facility] Sanchez [place], 62066 435.9 Services Of Yard Conductor M.D. Office Visit 03/12/2013 2:42p [facility] [place] [place] [address] 784.51 Assoc,pc Hospitalists 272.2 434.11 305.1 Plan of Care Future Appointment(s):07/07/2018 1:00 pm - Jose Juan King MD at [facility].06/20/2018 - Jose Juan King MDT87.44 Infection of amputation stump, left lower extremityFollow up:Follow Up: 2 weeks
--- OUTSIDE RECORDS SUMMARY | 2018-07-01 13:09 | XMS REPORT ---
:1955 External Reference #:[id number] Author Organization [employer] Address [address] [place] [address] [place] [address] Phone [phone] Care Team Providers Name Role Phone Gabbie Shell MD Primary Care Physician Unavailable Payers Type Date Identification Numbers Payment Provider Subscriber Commercial Effective: Policy Number: [id number] [employer]-[facility] Maryam Guardado 2010 PayID: [id number] [address] [place] [address] Medigap Part B Expires: 2018 Policy Number: Medicare Price Guardado [id number] PayID: [id number] [address] [place] [address] Medigap Part B Expires: 2018 Policy Number: Medicare Price Guardado [id number] PayID: [id number] [address] [place] [address] Medigap Part B Expires: 2018 Policy Number: [employer] Insurance [facility] [id number] Rufinajuan francisco Group Number: [id number] [address] PayID: [id number] [place] [address] Workers Compensation Onset: 2015 Policy Number: Jorden Guardado [id number] Group Number: [id number] [address] PayID: [id number] [place] [address] Problems Date Description Provider Status Onset: 04/22/2018 [...] 04/24/ Active Tablets 5mg 15tabs 1 tab [facility] 2018 every 4-6 Fernando, hours [...] Solution 1000mg iv every Unknown 0000 Rec 12 hours through [facility] Keflex 05/05/ Hx Capsules 250mg 30caps Take 1 [facility] 2017 - capsule Fernando, 06/09/ qid 2017 Clindamycin HCL 05/02/ Hx Capsules 300mg 30caps Take 1 [facility] 2017 - Capsule Fernando, 05/07/ By Mouth 2017 Three Times Daily Clindamycin HCL 11/01/ Hx Capsules 300mg 90caps 1 tabs by Jamar Jordan 2015 - mouth 3 Macqueen, 01/03/ times a M.D. 2015 day Lamictal 05/13/ Hx Tablets 25mg Paul Macario 2012 - Dori, 05/13/ M.D2012 Lamictal 05/13/ Hx Tablets 100mg 90tabs 1 [...] Unknown Sodium 0000 - Rec every 8 11/16/ hours 2015 Percocet /00/ Hx Tablets 5-325mg 1 by Unknown 0000 - mouth 04/21/ every 4 2018 hours as needed pain Bentyl 00/00/ Hx Capsules 10mg take 1 Unknown 0000 - tablet by 11/02/ mouth 2016 with every meal Tramadol HCL /00/ Hx Tablets 50mg 1 tablets Unknown 0000 - every 6 /06/ hours as 2016 needed Levofloxacin 00/00/ Hx [...] Daily Vital Signs Date Vital Result Comment 06/16/2018 Height 67 inches 5'7" Weight 186.00 [...] Test Result H/L Range Note Laboratory test 06/13/2018 C Difficile PCR SEE RESULT BELOW 1 finding CBC Auto Diff 06/11/2018 White Blood Count [...] Egfr Non- 44.1 >60 Egfr 53.3 >60 2 Laboratory test finding 06/11/2018 Vancomycin Trough 24.8 g/mL C Reactive Protein 4.81 mg/L <8.01 Laboratory test 04/24/2018 Surgical Pathology SEE RESULT BELOW 3 finding Laboratory test 04/24/2018 Point of Care 234 mg/dL High 70-100 4 finding Glucose Laboratory test 04/24/2018 Point of Care 232 mg/dL High 70-100 5 finding Glucose Laboratory test 04/24/2018 Point of Care 281 mg/dL High 70-100 6 finding Glucose Laboratory test 04/24/2018 Point of Care 331 mg/dL High 70-100 7 finding Glucose Comp Metabolic Panel 11/14/2015 Sodium [...] Egfr Non- 87.8 >60 Egfr 112.9 >60 8 Laboratory test finding 11/14/2015 C Reactive Protein 2.79 mg/L < 5.00 9 CBC Auto Diff 11/14/2015 White Blood Count [...] C Reactive Protein 4.89 mg/L < 5.00 10 Comp Metabolic Panel 11/08/2015 Sodium 135 mmol/L [...] Egfr Non- 82.3 >60 Egfr 105.9 >60 11 Comp Metabolic Panel 10/31/2015 Sodium 134 mmol/L [...] Egfr Non- 79.4 >60 Egfr 102.1 >60 12 Laboratory test finding 10/31/2015 C Reactive Protein 9.73 mg/L High < 5.00 13 CBC Auto Diff 10/31/2015 White Blood Count [...] Egfr Non- 71.6 >60 Egfr 92.0 >60 14 Laboratory test 10/24/2015 C Reactive Protein 15.74 mg/L High < 5.00 15 finding Laboratory test 10/13/2015 Point of Care 150 mg/dL High 74-106 16 finding Glucose Laboratory test 10/13/2015 Wound Culture/Sensi SEE RESULT BELOW 17 finding Tissue (BX) Culture & Gram St SEE RESULT BELOW 18 MRSA/S. aureus Ssti PCR SEE RESULT BELOW 19 Anaerobic Culture SEE RESULT BELOW 20 Laboratory test finding 10/13/2015 Wound Culture/Sensi SEE RESULT BELOW 21 Tissue (BX) Culture & Gram St SEE RESULT BELOW 22 MRSA/S. aureus Ssti PCR SEE RESULT BELOW 23 Anaerobic Culture SEE RESULT BELOW 24 Laboratory test finding 10/13/2015 Wound Culture/Sensi SEE RESULT BELOW 25 Tissue (BX) Culture & Gram St SEE RESULT BELOW 26 MRSA/S. aureus Ssti PCR SEE RESULT BELOW 27 Anaerobic Culture SEE RESULT BELOW 28 Laboratory test finding 10/13/2015 Wound Culture/Sensi SEE RESULT BELOW 29 Tissue (BX) Culture & Gram St SEE RESULT BELOW 30 MRSA/S. aureus Ssti PCR SEE RESULT BELOW 31 Anaerobic Culture SEE RESULT BELOW 32 Laboratory test finding 10/13/2015 Mycobacterial Culture See Comment 33 1 SEE RESULT BELOW Name: PRICE GUARDADO : [address]: Jamar Pérez MD Acct: [id number] Unit: [id number] AGE: 62 Location: [facility] Re06/13/18 SEX: M Status: REG REF SPEC: [id number] GABO: 06/13/18-[address]: Jamar Pérez MD REQ: [id number] RECD: 06/13/18 STATUS: COMP _ SOURCE: STOOL SPDESC: ORDERED: C. diff PCR Procedure Result Reported Site Stool Specimen Description Final 06/13/18- 1609 ML Stool Color Brown Stool Form Formed Stool Consistency Hard C. difficile PCR Final 06/13/18- 1609 ML Test not performed * ML - Main Lab . END OF REPORT DEPARTMENT OF PATHOLOGY, [address] [place] [address] Vinayak Yanez M.D. Director [facility] # [id number] 2 Because ethnic data is not always readily [...] 15-29 5 Kidney failure <15 (or dialysis) 3 SEE RESULT BELOW Name: DEBBYPRICE : [address]: Jose Jaun King MD Acct: [id number] Unit: [id number] AGE: 62 Location: [place] Re04/24/18 SEX: M Status: [facility] SPEC: [id number] GABO: 04/24/18- SUBM DR: Jose Juan King MD REQ: [id number] RECD: 04/24/183370 STATUS: SOUT _ ORDERED: Manuel, LEVEL 4 FINAL DIAGNOSIS Left great toe, [...] margin blue and plantar margin black, and claims service representative sections are submitted in cassettes A and B to include bone following decalcification in cassette A. Signed by and Reported on: Abby Ellis MD 04/29/18 1052 END OF REPORT DEPARTMENT OF PATHOLOGY, [address] [place] [address] Vinayak Yanez M.D. Director [facility] # [id number] 4 Manager Equipment: [id number] 5 Manager Equipment: [id number] 6 Manager Equipment: [id number] 7 Manager Equipment: [id number] 8 Because ethnic data is not always [...] (or dialysis) 13 Acute inflammation: >10.00 14 Because ethnic data is not always [...] (or dialysis) 15 Acute inflammation: >10.00 16 Manager Equipment: [id number] FERNANDO PETTIT 17 SEE RESULT BELOW Name: PRICE GUARDADO : [address]: Jessie Lazar MD Acct: [id number] Unit: [id number] AGE: 60 Location: [facility] Re10/13/15 SEX: M Status: REG SDC SPEC: [id number] GABO: 10/13/15-1640 [facility] DR: Jessie Lazar MD REQ: [id number] RECD: 10/13/154874 STATUS: RES OTHR DR: Gabbie Shell MD [...] performed at Main Lab DEPARTMENT OF PATHOLOGY, [address] [place] [address] Vinayak Yanez M.D. Director [facility] # [id number] 18 SEE RESULT BELOW Name: PRICE GUARDADO : [address]: Jessie Lazar MD Acct: [id number] Unit: [id number] AGE: 60 Location: [facility] 338-01 Re10/13/15 Dis: 10/19/15 SEX: M Status: DIS IN SPEC: [id number] GABO: 10/13/15-16[address] [facility] [address]: Jessie Lazar MD REQ: [id number] RECD: 10/13/15 STATUS: RES OTHR DR: Gabbie Shell MD _ SOURCE: WOUND SPDESC:KNEE LEFT ORDERED: Tissue Cult/GS/R, Fungal - Other/R, Acid Fast Stain/U COMMENTS: CLOSTRIDIUM FINDINGS IN ADDITION TO S. AUREUS: Verbal to DR. SHELL by [id number] at 1411 on 10/15/15. Results read back [...] performed at Main Lab DEPARTMENT OF PATHOLOGY, [address] [place] [address] Vinayak Yanez M.D. Director [facility] # [id number] Patient: PRICE GUARDADO [id number] (Continued) Specimen: [id number] Collected: 10/13/15 Received: 10/13/15175 (Continued) Procedure Result Reported Site Acid Fast Stain - Direct Final (continued) 10/14/15817 Due to limited sensitivity of the smear, results should be used as an adjunct in evaluating the patient's status and cultural examination is highly recommended for diagnosis. * ML - MAIN LAB ([facility]) . END OF REPORT * ML=Testing performed at Main Lab DEPARTMENT OF PATHOLOGY, [address] [place] [address] Vinayak Yanez M.D. Director [facility] # [id number] 19 SEE RESULT BELOW Name: PRICE GUARDADO : [address]: Jessie Lazar MD Acct: [id number] Unit: [id number] AGE: 60 Location: [facility] 338- Re10/13/15 SEX: M Status: ADM IN SPEC: [id number] GABO: 10/13/15-1640 [facility] [address]: Jessie Lazar MD REQ: [id number] RECD: 10/13/15 STATUS: RES OTHR DR: Gabbie Shell MD _ SOURCE: WOUND SPDESC:KNEE LEFT ORDERED: Anaerobic Cult/R, MRSA/SA SSTI/R, Culture Stain/R, Fungal - Other /R, Acid Fast Stain/U COMMENTS: Verbal to GEMINI CHAWLA by [id number] at 2020 on 10/13/15. Results read back [...] performed at Main Lab DEPARTMENT OF PATHOLOGY, [address] [place] [address] Vinayak Yanez M.D. Director [facility] # [id number] Patient: PRICE GUARDADO [id number] (Continued) Specimen: [id number] Collected: 10/13/15 Received: 10/13/15 (Continued) Procedure Result Reported Site Acid Fast Stain - Direct Final (continued) 10/14/15- 08 Due to limited sensitivity of the smear, results should be used as an adjunct in evaluating the patient's status and cultural examination is highly recommended for diagnosis. * ML - MAIN LAB ([facility]) . END OF REPORT * ML=Testing performed at Main Lab DEPARTMENT OF PATHOLOGY, [address] [place] [address] Vinayak Yanez M.D. Director [facility] # [id number] 20 SEE RESULT BELOW Name: PRICE GUARDADO : [address]: Jessie Lazar MD Acct: [id number] Unit: [id number] AGE: 60 Location: [facility] 338-01 Re10/13/15 Dis: 10/19/15 SEX: M Status: DIS IN SPEC: [id number] GABO: 10/13/15-[address]: Jessie Lazar MD REQ: [id number] RECD: 10/13/15 STATUS: RES OTHR DR: Gabbie Shell MD _ SOURCE: WOUND SPDESC:KNEE LEFT ORDERED: Anaerobic Cult/R, MRSA/SA SSTI/R, Culture Stain/R, Fungal - Other /R, Acid Fast Stain/U COMMENTS: Verbal to GEMINI CHAWLA by [id number] at 2020 on 10/13/15. Results read back accurately. CLOSTRIDIUM FINDINGS IN ADDITION TO S. AUREUS: Verbal to DR. SHELL by [id number] at 1411 on 10/15/15. Results read back [...] performed at Main Lab DEPARTMENT OF PATHOLOGY, [address] [place] [address] Vinayak Yanez M.D. Director [facility] # [id number] Patient: PRICE GUARDADO [id number] (Continued) Specimen: [id number] Collected: 10/13/15 Received: 10/13/15681 (Continued) Procedure Result Reported Site Wound/Misc Culture [...] These antibiotics are not available in the [facility] Formulary Contact the Microbiology Department for any additional antibiotic reporting. Fungal Cult - Other Sources Preliminary 10/24/15- 1325 ML Fungal Culture No Growth of Mycotic Organisms 1 week Acid Fast Stain - Direct Final 10/14/15- 08 ML CONTINUED ON NEXT PAGE * ML=Testing performed at Main Lab DEPARTMENT OF PATHOLOGY, [address] [place] [address] Vinayak Yanez M.D. Director [facility] # [id number] Patient: PRICE GUARDADO [id number] (Continued) Specimen: [id number] Collected: 10/13/15-1639 Received: 10/13/15 (Continued) Procedure Result Reported Site Acid Fast Stain - Direct Final (continued) 10/14/15809 AFB Smear Result No Acid Fast Bacillus Present (Negative) Preparation By Direct Smear Due to limited sensitivity of the smear, results should be used as an adjunct in evaluating the patient's status and cultural examination is highly recommended for diagnosis. * ML - MAIN LAB ([facility]) . END OF REPORT * ML=Testing performed at Main Lab DEPARTMENT OF PATHOLOGY, [address] [place] [address] Vinayak Yanez M.D. Director [facility] # [id number] 21 SEE RESULT BELOW Name: PRICE GUARDADO : [address]: Jessie Lazar MD Acct: [id number] Unit: [id number] AGE: 60 Location: [facility] Re10/13/15 SEX: M Status: REG SDC SPEC: [id number] GABO: 10/13/15-16[address] [facility] [address]: Jessie Lazar MD REQ: [id number] RECD: 10/13/15 STATUS: RES OTHR DR: Gabbie [...] Direct PENDING * ML - MAIN LAB ([facility]) . END OF REPORT * ML=Testing performed at Main Lab DEPARTMENT OF PATHOLOGY, [address] [place] [address] Vinayak Yanez M.D. Director [facility] # [id number] 22 SEE RESULT BELOW Name: PRICE GUARDADO : [address]: Jessie Lazar MD Acct: [id number] Unit: [id number] AGE: 60 Location: [facility] 338-01 Re10/13/15 Dis: 10/19/15 SEX: M Status: DIS IN SPEC: [id number] GABO: 10/13/15-[address]: Jessie aLzar MD REQ: [id number] RECD: 10/13/15 STATUS: RES OTHR DR: Gabbie Shell MD _ SOURCE: WOUND SPDESC:KNEE LEFT ORDERED: Tissue Cult/GS/R, Fungal - Other/R, Acid Fast Stain/U COMMENTS: CLOSTRIDIUM FINDINGS IN ADDITION TO S. AUREUS: Verbal to DR. SHELL by [id number] at 1411 on 10/15/15. Results read back [...] performed at Main Lab DEPARTMENT OF PATHOLOGY, [address] [place] [address] Vinayak Yanez M.D. Director [facility] # [id number] Patient: PRICE GUARDADO [id number] (Continued) Specimen: [id number] Collected: 10/13/15 Received: 10/13/15 (Continued) Procedure Result Reported Site Acid Fast Stain - Direct Final (continued) 10/14/15817 Due to limited sensitivity of the smear, results should be used as an adjunct in evaluating the patient's status and cultural examination is highly recommended for diagnosis. * ML - MAIN LAB ([facility]) . END OF REPORT * ML=Testing performed at Main Lab DEPARTMENT OF PATHOLOGY, [address] [place] [address] Vinayak Yanez M.D. Director [facility] # [id number] 23 SEE RESULT BELOW Name: PRICE GUARDADO : [address]: Jessie Lazar MD Acct: [id number] Unit: [id number] AGE: 60 Location: [facility] 338- Re10/13/15 SEX: M Status: ADM IN SPEC: [id number] GABO: 10/13/15-1640 [facility] DR: Jessie Lazar MD REQ: [id number] RECD: 10/13/15-1754 STATUS: RES OTHR DR: Gabbie Shell MD _ SOURCE: WOUND SPDESC:KNEE LEFT ORDERED: Anaerobic Cult/R, MRSA/SA SSTI/R, Culture Stain/R, Fungal - Other /R, Acid Fast Stain/U COMMENTS: Verbal to GEMINI REYES CAMMY by [id number] at 2020 on 10/13/15. Results read back [...] performed at Main Lab DEPARTMENT OF PATHOLOGY, [address] [place] [address] Vinayak Yanez M.D. Director [facility] # [id number] Patient: PRICE GUARDADO [id number] (Continued) Specimen: [id number] Collected: 10/13/15 Received: 10/13/15 (Continued) Procedure Result Reported Site Acid Fast Stain - Direct Final (continued) 10/14/15809 Due to limited sensitivity of the smear, results should be used as an adjunct in evaluating the patient's status and cultural examination is highly recommended for diagnosis. * ML - MAIN LAB ([facility]) . END OF REPORT * ML=Testing performed at Main Lab DEPARTMENT OF PATHOLOGY, [address] [place] [address] Vinayak Yanez M.D. Director [facility] # [id number] 24 SEE RESULT BELOW Name: PRICE GUARDADO : [address]: Jessie Lazar MD Acct: [id number] Unit: [id number] AGE: 60 Location: [place] [address] Re10/13/15 Dis: 10/19/15 SEX: M Status: DIS IN SPEC: [id number] GABO: 10/13/15-[address] [facility] [address]: Jessie Lazar MD REQ: [id number] RECD: 10/13/15 STATUS: RES OTHR DR: Gabbie Shell MD _ SOURCE: WOUND SPDESC:KNEE LEFT ORDERED: Anaerobic Cult/R, MRSA/SA SSTI/R, Culture Stain/R, Fungal - Other /R, Acid Fast Stain/U COMMENTS: Verbal to GEMINI CHAWLA by [id number] at 2020 on 10/13/15. Results read back accurately. CLOSTRIDIUM FINDINGS IN ADDITION TO S. AUREUS: Verbal to DR. SHELL by [id number] at 1411 on 10/15/15. Results read back [...] performed at Main Lab DEPARTMENT OF PATHOLOGY, [address] [place] [address] Vinayak Yanez M.D. Director [facility] # [id number] Patient: PRICE GUARDADO [id number] (Continued) Specimen: [id number] Collected: 10/13/15-1639 Received: 10/13/15 (Continued) Procedure Result [...] These antibiotics are not available in the [facility] Formulary Contact the Microbiology Department for any additional antibiotic reporting. Fungal Cult - Other Sources Preliminary 10/31/15- 1443 ML Fungal Culture No Growth of Mycotic Organisms 2 weeks Acid Fast Stain - Direct Final 10/14/15- 0810 ML CONTINUED ON NEXT PAGE * ML=Testing performed at Main Lab DEPARTMENT OF PATHOLOGY, [address] [place] [address] Vinayak Yanez M.D. Director [facility] # [id number] Patient: PRICE GUARDADO [id number] (Continued) Specimen: [id number] Collected: 10/13/15 Received: 10/13/15035 (Continued) Procedure Result Reported Site Acid Fast Stain - Direct Final (continued) 10/14/15 08 AFB Smear Result No Acid Fast Bacillus Present (Negative) Preparation By Direct Smear Due to limited sensitivity of the smear, results should be used as an adjunct in evaluating the patient's status and cultural examination is highly recommended for diagnosis. * ML - MAIN LAB ([facility]) . END OF REPORT * ML=Testing performed at Main Lab DEPARTMENT OF PATHOLOGY, [address] [place] [address] Vinayak Yanez M.D. Director [facility] # [id number] 25 SEE RESULT BELOW Name: PRICE GUARDADO : [address]: Jessie Lazar MD Acct: [id number] Unit: [id number] AGE: 60 Location: [facility] Re10/13/15 SEX: M Status: REG [facility] SPEC: [id number] GABO: 10/13/15-[address]: Jessie Lazar MD REQ: [id number] RECD: 10/13/15 STATUS: RES OTHR DR: Gabbie hSell MD _ SOURCE: WOUND SPDESC:KNEE LEFT ORDERED: Anaerobic Cult/R, MRSA/SA SSTI/R, Culture Stain/R, Fungal - Other /R, Acid Fast Stain/U Procedure Result Reported Site Anaerobic Culture PENDING MRSA/S. aureus SSTI PCR PENDING Wound/Misc Gram Stain Final 10/13/15- 184 ML 3+ Neutrophils 4+ Gram Positive Cocci 3+ Gram Positive Bacilli 1+ Gram Negative Bacilli Wound/Misc Culture PENDING Fungal Cult - Other Sources PENDING Acid Fast Stain - Direct PENDING * ML - MAIN LAB ([facility]) . END OF REPORT * ML=Testing performed at Main Lab DEPARTMENT OF PATHOLOGY, [address] [place] [address] Vinayak Yanez M.D. Director [facility] # [id number] 26 SEE RESULT BELOW Name: PRICE GUARDADO : [address]: Jessie Lazar MD Acct: [id number] Unit: [id number] AGE: 60 Location: [place] [address]- Re10/13/15 Dis: 10/19/15 SEX: M Status: DIS IN SPEC: [id number] GABO: 10/13/15-1640 [facility] DR: Jessie Lazar MD REQ: [id number] RECD: 10/13/15 STATUS: RES OTHR DR: Gabbie Shell MD _ SOURCE: WOUND SPDESC:KNEE LEFT ORDERED: Tissue Cult/GS/R, Fungal - Other/R, Acid Fast Stain/U COMMENTS: CLOSTRIDIUM FINDINGS IN ADDITION TO S. AUREUS: Verbal to DR. SHELL by [id number] at 1411 on 10/15/15. Results read back [...] performed at Main Lab DEPARTMENT OF PATHOLOGY, [address] [place] [address] Vinayak Yanez M.D. Director [facility] # [id number] Patient: PRICE GUARDADO [id number] (Continued) Specimen: [id number] Collected: 10/13/15-1640 Received: 10/13/15 (Continued) Procedure Result Reported Site Acid Fast Stain - Direct Final (continued) 10/14/15817 Due to limited sensitivity of the smear, results should be used as an adjunct in evaluating the patient's status and cultural examination is highly recommended for diagnosis. * ML - MAIN LAB ([facility]) . END OF REPORT * ML=Testing performed at Main Lab DEPARTMENT OF PATHOLOGY, [address] [place] [address] Vinayak Yanez M.D. Director [facility] # [id number] 27 SEE RESULT BELOW Name: PRICE GUARDADO : [address]: Jessie Lazar MD Acct: [id number] Unit: [id number] AGE: 60 Location: [place] [address] Re10/13/15 SEX: M Status: ADM IN SPEC: [id number] GABO: 10/13/15-1640 [facility] [address]: Jessie Lazar MD REQ: [id number] RECD: 10/13/15 STATUS: RES OTHR DR: Gabbie Shell MD _ SOURCE: WOUND SPDESC:KNEE LEFT ORDERED: Anaerobic Cult/R, MRSA/SA SSTI/R, Culture Stain/R, Fungal - Other /R, Acid Fast Stain/U COMMENTS: Verbal to GEMINI CHAWLA by [id number] at 2020 on 10/13/15. Results read back [...] performed at Main Lab DEPARTMENT OF PATHOLOGY, [address] [place] [address] Vinayak Yanez M.D. Director [facility] # [id number] Patient: PRICE GUARDADO [id number] (Continued) Specimen: [id number] Collected: 10/13/15 Received: 10/13/15 (Continued) Procedure Result Reported Site Acid Fast Stain - Direct Final (continued) 10/14/15- 809 Due to limited sensitivity of the smear, results should be used as an adjunct in evaluating the patient's status and cultural examination is highly recommended for diagnosis. * ML - MAIN LAB ([facility]) . END OF REPORT * ML=Testing performed at Main Lab DEPARTMENT OF PATHOLOGY, [address] [place] [address] Vinayak Yanez M.D. Director [facility] # [id number] 28 SEE RESULT BELOW Name: PRICE GUARDADO : [address]: Jessie Lazar MD Acct: [id number] Unit: [id number] AGE: 60 Location: [facility] 338-01 Re10/13/15 Dis: 01/20/16 SEX: M Status: DIS IN SPEC: [id number] GABO: 10/13/15-[address] [facility] [address]: Jessie Lazar MD REQ: [id number] RECD: 10/13/15 STATUS: RES OTHR DR: Gabbie Shell MD _ SOURCE: WOUND SPDESC:KNEE LEFT ORDERED: Anaerobic Cult/R, MRSA/SA SSTI/R, Culture Stain/R, Fungal - Other /R, Acid Fast Stain/U COMMENTS: Verbal to GEMINI CHAWLA by [id number] at 2020 on 10/13/15. Results read back accurately. CLOSTRIDIUM FINDINGS IN ADDITION TO S. AUREUS: Verbal to DR. SHELL by [id number] at 1411 on 10/15/15. Results read back [...] performed at Main Lab DEPARTMENT OF PATHOLOGY, [address] [place] [address] Vinayak Yanez M.D. Director [facility] # [id number] Patient: PRICE GUARDADO [id number] (Continued) Specimen: [id number] Collected: 10/13/15 Received: 10/13/15 (Continued) Procedure Result [...] These antibiotics are not available in the [facility] Formulary Contact the Microbiology Department for any additional antibiotic reporting. Fungal Cult - Other Sources Preliminary 11/07/15- 1229 ML Fungal Culture No Growth of Mycotic Organisms 3 weeks Acid Fast Stain - Direct Final 10/14/15- 0810 ML CONTINUED ON NEXT PAGE * ML=Testing performed at Main Lab DEPARTMENT OF PATHOLOGY, [address] [place] [address] Vinayak Yanez M.D. Director [facility] # [id number] Patient: PRICE GUARDADO [id number] (Continued) Specimen: [id number] Collected: 10/13/15-1639 Received: 10/13/15 (Continued) Procedure Result Reported Site Acid Fast Stain - Direct Final (continued) 10/14/15809 AFB Smear Result No Acid Fast Bacillus Present (Negative) Preparation By Direct Smear Due to limited sensitivity of the smear, results should be used as an adjunct in evaluating the patient's status and cultural examination is highly recommended for diagnosis. * ML - MAIN LAB ([facility]) . END OF REPORT * ML=Testing performed at Main Lab DEPARTMENT OF PATHOLOGY, [address] [place] [address] Vinayak Yanez M.D. Director [facility] # [id number] 29 SEE RESULT BELOW Name: DEBBYPRICE : [address]: Jessie Lazar MD Acct: [id number] Unit: [id number] AGE: 60 Location: [facility] Re10/13/15 SEX: M Status: REG SDC SPEC: [id number] GABO: 10/13/15-1640 [facility] DR: Jessie Lazar MD REQ: [id number] RECD: 10/13/15 STATUS: RES OTHR DR: Gabbie [...] Direct PENDING * ML - MAIN LAB ([facility]) . END OF REPORT * ML=Testing performed at Main Lab DEPARTMENT OF PATHOLOGY, [address] [place] [address] Vinayak Yanez M.D. Director [facility] # [id number] 30 SEE RESULT BELOW Name: PRICE GUARDADO : [address]: Jessie Lazar MD Acct: [id number] Unit: [id number] AGE: 60 Location: [facility] 338-01 Re10/13/15 Dis: 10/19/15 SEX: M Status: DIS IN SPEC: [id number] GABO: 10/13/15-[address]: Jessie Lazar MD REQ: [id number] RECD: 10/13/15 STATUS: COMP THE REHABILITATION [facility] DR: Gabbie Shell MD _ SOURCE: WOUND SPDESC:KNEE LEFT ORDERED: Tissue Cult/GS/R, Fungal - Other/R, Acid Fast Stain/U COMMENTS: CLOSTRIDIUM FINDINGS IN ADDITION TO S. AUREUS: Verbal to DR. SHELL by [id number] at 1411 on 10/15/15. Results read back [...] performed at Main Lab DEPARTMENT OF PATHOLOGY, [address] [place] [address] Vinayak Yanez M.D. Director [facility] # [id number] Patient: PRICE GUARDADO [id number] (Continued) Specimen: [id number] Collected: 10/13/15 Received: 10/13/15-311 (Continued) Procedure Result Reported Site Acid Fast Stain - Direct Final (continued) 10/14/15- 08 Due to limited sensitivity of the smear, results should be used as an adjunct in evaluating the patient's status and cultural examination is highly recommended for diagnosis. * ML - MAIN LAB ([facility]) . END OF REPORT * ML=Testing performed at Main Lab DEPARTMENT OF PATHOLOGY, [address] [place] [address] Vinayak Yanez M.D. Director [facility] # [id number] 31 SEE RESULT BELOW Name: DEBBYPRICE : [address]: Jessie Lazar MD Acct: [id number] Unit: [id number] AGE: 60 Location: [facility] [id number] Re10/13/15 SEX: M Status: ADM IN SPEC: [id number] GABO: 10/13/15-1640 [facility] DR: Jessie Lazar MD REQ: [id number] RECD: 10/13/15 STATUS: RES OTHR DR: Gabbie Shell MD _ SOURCE: WOUND SPDESC:KNEE LEFT ORDERED: Anaerobic Cult/R, MRSA/SA SSTI/R, Culture Stain/R, Fungal - Other /R, Acid Fast Stain/U COMMENTS: Verbal to GEMINI HASKINSZONIA CHAWLA by [id number] at 2020 on 10/13/15. Results read back [...] performed at Main Lab DEPARTMENT OF PATHOLOGY, [address] [place] [address] Vinayak Yanez M.D. Director [facility] # [id number] Patient: PRICE GUARDADO [id number] (Continued) Specimen: [id number] Collected: 10/13/15 Received: 10/13/15 (Continued) Procedure Result Reported Site Acid Fast Stain - Direct Final (continued) 10/14/15 75 Due to limited sensitivity of the smear, results should be used as an adjunct in evaluating the patient's status and cultural examination is highly recommended for diagnosis. * ML - MAIN LAB ([facility]) . END OF REPORT * ML=Testing performed at Main Lab DEPARTMENT OF PATHOLOGY, [address] [place] [address] Vinayak Yanez M.D. Director [facility] # [id number] 32 SEE RESULT BELOW Name: PRICE GUARDADO : [address]: Jessie Lazar MD Acct: [id number] Unit: [id number] AGE: 60 Location: [place] [address] Re10/13/15 Dis: 10/19/15 SEX: M Status: DIS IN SPEC: [id number] GABO: 10/13/15-16[address] [facility] [address]: Jessie Lazar MD REQ: [id number] RECD: 10/13/15249 STATUS: COMP TERRANCE DR: Gabbie Shell MD _ SOURCE: WOUND SPDESC:KNEE LEFT ORDERED: Anaerobic Cult/R, MRSA/SA SSTI/R, Culture Stain/R, Fungal - Other /R, Acid Fast Stain/U COMMENTS: Verbal to GEMINI CHAWLA by [id number] at 2020 on 10/13/15. Results read back accurately. CLOSTRIDIUM FINDINGS IN ADDITION TO S. AUREUS: Verbal to DR. SHELL by [id number] at 1411 on 10/15/15. Results read back [...] performed at Main Lab DEPARTMENT OF PATHOLOGY, [address] [place] [address] Vinayak Yanez M.D. Director [facility] # [id number] Patient: PRICE GUARDADO [id number] (Continued) Specimen: [id number] Collected: 10/13/15-1639 Received: 10/13/15 (Continued) Procedure Result [...] These antibiotics are not available in the [facility] Formulary Contact the Microbiology Department for any additional antibiotic reporting. Fungal Cult - Other Sources Final 11/14/15- 1427 ML Fungal Culture No Growth of Mycotic Organisms 4 weeks Acid Fast Stain - Direct Final 10/14/15- 0810 ML CONTINUED ON NEXT PAGE * ML=Testing performed at Main Lab DEPARTMENT OF PATHOLOGY, [address] [place] [address] Vinayak Yanez M.D. Director [facility] # [id number] Patient: PRICE GUARDADO [id number] (Continued) Specimen: [id number] Collected: 10/13/15 Received: 10/13/15 (Continued) Procedure Result Reported Site Acid Fast Stain - Direct Final (continued) 10/14/15- 08 AFB Smear Result No Acid Fast Bacillus Present (Negative) Preparation By Direct Smear Due to limited sensitivity of the smear, results should be used as an adjunct in evaluating the patient's status and cultural examination is highly recommended for diagnosis. * ML - MAIN LAB ([facility]) . END OF REPORT * ML=Testing performed at Main Lab DEPARTMENT OF PATHOLOGY, [address] [place] [address] Vinayak Yanez M.D. Director [facility] # [id number] 33 SOURCE: KNEE, KNEE WOUND SWAB MYCOBACTERIAL CULTURE FINAL No growth after 60 days of incubation. Test Performed by: [address] [address] Garden Consultant: Cam Isidro II, M.D., Ph.D. Procedures Date CPT Code Description Status 05/29/2018 02581 Incision Bone Cortex Foot Completed 05/29/2018 00446 Incision Bone Cortex Foot Completed 05/29/2018 54630 Layer Closure Of Wounds 2.6CM - 7.5CM Completed Neck,Hands,Feet,Genitalia 05/29/2018 70783 Layer Closure Of Wounds 2.6CM - 7.5CM Completed Neck,Hands,Feet,Genitalia 05/29/2018 52829 Debridement Tissue/Muscle/Bone Completed 05/29/2018 06613 Debridement Tissue/Muscle/Bone Completed 04/24/2018 21721 Amputation,Toe;Interphalangeal Joint Completed 04/24/2018 85731 Amputation,Toe;Interphalangeal Joint Completed 04/24/2018 43031 Amputation,Toe;Interphalangeal Joint Completed 04/24/2018 37540 Amputation,Toe;Interphalangeal Joint Completed 04/18/2018 13031 Revascularization,Endovascular W/Atherectomy, Inc Completed Angioplasty 04/18/2018 67532 Revascularization,Endovascular W/Atherectomy, Inc Completed Angioplasty 04/18/2018 99387 Angio Extremity, Bilateral Completed 04/18/2018 50308 Ultrasound Guidance For Vascular Access Completed 04/18/2018 40381 Moderate Sedation Services; Same Phys Intl 15 Mins; PT Completed >=5 Years 04/18/2018 65331 Moderate Sedation Services; Same Phys Each Additional Completed 15 Mins 12/10/2016 60575 ECHO Transthorasic Realtime 2D W Doppler & Color Flow Completed [facility] 12/09/2016 04454 EKG, Interpretation Only Completed 01/10/2016 74824 Treadmill Interp/Report Only Completed 01/10/2016 19150 Stress Test Supervsn W/Out I/R Completed 10/15/2015 14853 Arthroscopy,Knee For Infection,Lavage & Drainage Completed 10/15/2015 69577 Arthroscopy,Knee For Infection,Lavage & Drainage Completed 10/15/2015 54750 Arthroscopy,Knee For Infection,Lavage & Drainage Completed 10/15/2015 36021 Arthroscopy,Knee For Infection,Lavage & Drainage Completed 10/13/2015 19066 Arthroscopy,Knee,Meniscectomy Medial Or Lateral Completed 10/13/2015 59168 Arthroscopy,Knee,Meniscectomy Medial Or Lateral Completed 10/13/2015 57214 Arthroscopy,Knee For Infection,Lavage & Drainage Completed 05/18/2013 02795 EEG Recording Awake & Asleep Completed 03/13/2013 18744 Color Flow Doppler/Interp & Reprt Completed 03/13/2013 02742 Pulse Wave/Continuous-Interp.RPT Completed 03/13/2013 40102 Echocardiography, Transesophageal, Real Time W/Image 2D Completed W/W/O M-M Encounters Type Date Location Provider CPT E/M Dx Office Visit 06/04/2018 [facility] Jamar Jordan 45040 T87.44 1:00p Infectious Diseases Gabrielle Pérez E11.69 M86.172 Z89.412 Office Visit 06/03/2018 2:51p [facility] 55120 T81.31xD Assoc,pc Hospitalists Doto, PRODUCTION STAGE MANAGER F32.9 N17.9 E11.9 I73.9 Office Visit 06/02/2018 2:50p [facility] 14591 T81.31xD Assoc,pc Hospitalists Doto, PRODUCTION STAGE MANAGER F32.9 N17.9 E11.9 I73.9 Office Visit 06/01/2018 2:50p [facility] 98317 T81.31xD Assoc,pc Hospitalists Doto, PRODUCTION STAGE MANAGER F32.9 N17.9 E11.9 I73.9 Office Visit 05/31/2018 2:50p [facility] 44271 T81.31xA Assoc,pc Hospitalists Doto, PRODUCTION STAGE MANAGER F32.9 N17.9 E11.9 I73.9 Office Visit 05/30/2018 2:49p [facility], 36665 T81.31xD Assoc,pc Hospitalists PRODUCTION STAGE MANAGER I73.9 E11.9 Office Visit 05/29/2018 2:49p [facility], 53422 T81.31xD Assoc,pc Hospitalists PRODUCTION STAGE MANAGER N17.9 I73.9 E11.9 Office Visit 05/28/2018 2:17p [facility] Rea 72903 L03.116 C.M.A. T81.31xA Office Visit 05/28/2018 2:48p [facility], 85436 T81.31xD Assoc,pc Hospitalists PRODUCTION STAGE MANAGER N17.9 I73.9 E11.9 Office Visit 05/28/2018 12:39p [facility] Madalyn Pérez, 04647 T87.81 Infectious Diseases Gabrielle T87.44 Z89.412 E11.69 M86.172 Office Visit 05/27/2018 2:48p [facility] [place], 6[address] T81.31xD Assoc,pc Hospitalists PRODUCTION STAGE MANAGER Z89.412 E11.52 Z79.4 I73.9 Z71.6 Office Visit 05/08/2018 1:40p [facility] Madalyn Jordan 54218 Z89.412 Infectious Diseases Gabrielle Pérez E11.52 Office Visit 04/22/2018 1:30p [facility] [place] [address] M86.172 C.M.A. Office Visit 04/19/2018 11:31a [facility] [place] [address] L97.513 Assoc,pc Hospitalists E11.52 I73.9 Office Visit 04/19/2018 9:33a [facility] [place] [address] Z47.89 C.M.A. Office Visit 04/18/2018 11:30a [facility] Imtiaznathalie Fausto, 51381 L97.513 Assoc,pc Hospitalists PA E11.52 I73.9 F32.9 G25.0 Office Visit 04/17/2018 11:30a [facility] Assoc,pc Joe Ramírez, 24540 L97.513 Hospitalists Gabrielle E11.52 Office Visit 04/16/2018 9:11a [facility] Vascular Medicine Richardson Mahan, 04023 I70.213 Of Vp Product Gabrielle M87.878 Office Visit 04/16/2018 1:09p [facility] Assoc,pc Steffanie Larsen 22071 I73.9 Hospitalists MARJORIE Bradley E11.51 Office Visit 04/15/2018 12:44p [facility] Jamar Pérez, 51179 E11.52 Infectious Noé Anthony Z86.73 Office Visit [facility]2018 [facility] [place] [address] L97.513 Hospitalists E11.9 F32.9 Office Visit 04/15/2018 2:11p [facility] 24535 M87.078 C.M.A. L03.032 Office Visit 12/10/2016 3:56p [facility] [address] R07.2 Hospitalists R55 E11.9 G45.9 Office Visit 12/10/2016 2:49p [facility] [place] [address] G45.9 Office Visit 12/09/2016 1:48p [facility] Sae Major, 93007 G45.9 M.DAdrianna Office Visit 12/09/2016 3:55p [facility], Orlin Junior 30499 R55 Malcolm LI M.D. R07.2 E11.9 G45.9 Office Visit 01/10/2016 12:51p [facility] Sadie Miguel, 12385 R07.9 Assoc, PRODUCTION STAGE MANAGER Hospitalists N17.9 E11.9 I10 Office Visit 01/09/2016 12:50p [facility], Estefanía Lewis N.Lionel 97573 R07.9 Hospitalists E11.9 N17.9 I10 Office Visit 11/30/2015 3:20p [facility] Madalyn Jordan 25855 M00.062 Infectious Diseases Gabrielle Pérez Office Visit 11/16/2015 3:20p [facility] Madalyn Jordan 67516 M00.062 Infectious Noé Pérez M.D. B96.7 Office Visit 11/03/2015 2:00p [facility] Madalyn Jordan 46299 M00.062 Infectious Noé Pérez M.D. M00.062 Office Visit 10/19/2015 9:02a [facility] Madalyn Jordan 56321 M00.062 Infectious Noé Pérez M.D. L02.416 Office Visit 10/19/2015 10:02a [facility] [place] [address] M00.062 Assoc, Hospitalists B96.7 E11.8 Office Visit 10/18/2015 8:56a [facility] Madalyn Jordan 35664 M00.062 Infectious Noé Pérez M.D. R19.7 V99.xxxA B96.7 Office Visit 10/18/2015 10:02a [facility], Sanchez Shell, 73966 M00.062 Hospitalstephan Anthony E11.8 B96.7 Office Visit 10/17/2015 10:01a [facility], Sanchez Shell, 05856 M00.062 Hospitalstephan Anthony B96.7 E11.8 Office Visit 10/16/2015 10:00a [facility], Sanchez Shell, 48975 M00.062 Hospitalists Gabrielle B96.7 E11.8 Office Visit 10/15/2015 10:00a [facility],pc Sanchez Suleman, 05200 M00.062 Hospitalists Gabrielle B96.7 E11.8 Office Visit 10/14/2015 9:59a [facility],pc Nasima Colmenares, 54504 M00.062 Hospitalists D.O. E11.8 Office Visit 10/13/2015 9:58a [facility] Tiffanie [place], 96886 M00.062 Assoc, Hospitalists PRODUCTION STAGE MANAGER E11.8 Office Visit 10/13/2015 7:00a [facility] [place] [address] M25.562 C.M.A. M25.462 S81.012A B96.89 Office Visit 07/29/2013 8:30a [facility] Paul [place], 59956 333.1 Services Of Vp Product M.D. Office Visit 06/19/2013 11:30a [facility] Paul [place], [address] 437.9 Services Of Vp Product M.D. Office Visit 05/12/2013 10:45a [facility] Paul [place], 637[address] 345.40 Services Of Vp Product M.D. 438.89 331.83 Office Visit 03/13/2013 12:53p [facility] Sanchez Warren, 67477 435.9 Services Of Vp Product M.D. Office Visit 03/13/2013 2:43p [facility] Nasima Colmenares, 23455 784.51 Assoc, Hospitalists D.OAdrianna 272.2 435.9 305.1 Office Visit 03/12/2013 12:52p [facility] Sanchez Warren, 66112 435.9 Services Of Vp Product M.D. 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
--- OUTSIDE RECORDS SUMMARY | 2018-07-01 13:09 | XMS REPORT ---
:1955 External Reference #:[id number] Author Organization [employer] Address [address] [place] [address] [place] [address] Phone [phone] Care Team Providers Name Role Phone Gabbie Shell MD Primary Care Physician Unavailable Payers Type Date Identification Numbers Payment Provider Subscriber Commercial Effective: Policy Number: [id number] Aechristyna-[facility] Maryam Guardado 2010 PayID: [id number] [address] [place] [address] Medigap Part B Expires: 2018 Policy Number: Medicare Price Guardado [id number] PayID: [id number] [address] [place] [address] Medigap Part B Expires: 2018 Policy Number: Medicare Price Guardado [id number] PayID: [id number] [address] [place] [address] Medigap Part B Expires: 2018 Policy Number: [employer] Maryam Guevara [id number] Debby Group Number: [id number] [address] PayID: [id number] [place] [address] Workers Compensation Onset: 2015 Policy Number: Jorden Guardado [id number] Group Number: [id number] [address] PayID: [id number] MAMADOU Pardo [id number] Problems Date Description Provider Status Onset: 04/22/2018 Acute osteomyelitis of ankle Jose Juan King MD Active and/or foot Onset: 04/24/2018 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, MD Active gangrene Onset: 04/16/2018 Peripheral vascular [...] 1 tab [facility] 2017 every 4-6 Fernando, hours as MD [...] Solution 1000mg iv every Unknown 0000 Rec 8 hours through [facility] Keflex 05/05/ Hx Capsules 250mg 30caps Take 1 [facility] 2017 - capsule Fernando, 06/09/ qid 2017 Clindamycin HCL 05/02/ Hx Capsules 300mg 30caps Take 1 [facility] 2017 - Capsule Fernando, 05/07/ By Mouth 2018 Three Times Daily Clindamycin HCL 11/01/ Hx Capsules 300mg 90caps 1 tabs by Jamar Jordan 2015 - mouth 3 Macqueen, 04/06/ times a M.D. 2015 day Lamictal 05/13/ Hx Tablets 25mg Paul Macario 2012 - Dori, 05/13/ M.D2012 Lamictal 05/13/ Hx Tablets 100mg 90tabs 1 and 10/01 Paul Macario 2012 - malika and Dori, 10/01 qhs M.D. 2015 for 2 wks then 1 and 10/01 qam and 1 qhs for 2 wks then 1 and 2 bid Lantus Solostar / Hx Solution 100Unit/ML [...] Unknown 0000 - po qhs 2015 Aspirin 00/ Hx 325mg 1 tab po Unknown 0000 [...] 4 2018 hours as needed pain Bentyl /00/ Hx Capsules 10mg take 1 Unknown 0000 [...] Daily Vital Signs Date Vital Result Comment 06/13/2018 Height 67 inches 5'7" Heart Rate [...] Test Date Test Result H/L Range Note CBC Auto Diff 06/11/2018 White Blood Count [...] Egfr Non- 44.1 >60 Egfr 53.3 >60 1 Laboratory test finding 06/11/2018 Vancomycin Trough 24.8 g/mL C Reactive Protein 4.81 mg/L <8.01 Laboratory test 04/24/2018 Surgical Pathology SEE RESULT BELOW 2 finding Laboratory test 04/24/2018 Point of Care 234 mg/dL High 70-100 3 finding Glucose Laboratory test 04/24/2018 Point of Care 232 mg/dL High 70-100 4 finding Glucose Laboratory test 04/24/2018 Point of Care 281 mg/dL High 70-100 5 finding Glucose Laboratory test 04/24/2018 Point of Care 331 mg/dL High 70-100 6 finding Glucose Comp Metabolic Panel 11/14/2015 Sodium [...] Egfr Non- 87.8 >60 Egfr 112.9 >60 7 Laboratory test finding 11/14/2015 C Reactive Protein 2.79 mg/L < 5.00 8 CBC Auto Diff 11/14/2015 White Blood Count [...] Reactive Protein 4.89 mg/L < 5.00 9 Comp Metabolic Panel 11/08/2015 Sodium 135 mmol/L [...] Egfr Non- 82.3 >60 Egfr 105.9 >60 10 Comp Metabolic Panel 10/31/2015 Sodium 134 [...] Non- 79.4 >60 Egfr 102.1 >60 11 Laboratory test finding 10/31/2015 C Reactive Protein 9.73 mg/L High < 5.00 12 CBC Auto Diff 10/31/2015 White Blood Count [...] Egfr Non- 71.6 >60 Egfr 92.0 >60 13 Laboratory test 10/24/2015 C Reactive Protein 15.74 mg/L High < 5.00 14 finding Laboratory test 10/13/2015 Point of Care 150 mg/dL High 74-106 15 finding Glucose Laboratory test 10/13/2015 Wound Culture/Sensi SEE RESULT BELOW 16 finding Tissue (BX) Culture & Gram St SEE RESULT BELOW 17 MRSA/S. aureus Ssti PCR SEE RESULT BELOW 18 Anaerobic Culture SEE RESULT BELOW 19 Laboratory test finding 10/13/2015 Wound Culture/Sensi SEE RESULT BELOW 20 Tissue (BX) Culture & Gram St SEE RESULT BELOW 21 MRSA/S. aureus Ssti PCR SEE RESULT BELOW 22 Anaerobic Culture SEE RESULT BELOW 23 Laboratory test finding 10/13/2015 Wound Culture/Sensi SEE RESULT BELOW 24 Tissue (BX) Culture & Gram St SEE RESULT BELOW 25 MRSA/S. aureus Ssti PCR SEE RESULT BELOW 26 Anaerobic Culture SEE RESULT BELOW 27 Laboratory test finding 10/13/2015 Wound Culture/Sensi SEE RESULT BELOW 28 Tissue (BX) Culture & Gram St SEE RESULT BELOW 29 MRSA/S. aureus Ssti PCR SEE RESULT BELOW 30 Anaerobic Culture SEE RESULT BELOW 31 Laboratory test finding 10/13/2015 Mycobacterial Culture See Comment 32 1 Because ethnic data is not always [...] 5 Kidney failure <15 (or dialysis) 2 SEE RESULT BELOW Name: PRICE GUARDADO : [address]: Jose Juan King MD Acct: [id number] Unit: [id number] AGE: 62 Location: OR Re04/24/18 SEX: M Status: WINIFRED SDC SPEC: [id number] GABO: 04/24/18- SUBM DR: Jose Juan King MD REQ: [id number] RECD: 04/24/180 STATUS: SOUT _ ORDERED: Decal, LEVEL 4 [...] margin blue and plantar margin black, and artist's representative sections are submitted in cassettes A and B to include bone following decalcification in cassette A. Signed by and Reported on: Abby Ellis MD 04/29/18 1052 END OF REPORT DEPARTMENT OF PATHOLOGY, [address] [place] [address] Vinayak Yanez M.D. Director [facility] # [id number] 3 Glue Specialty Supervisor: [id number] Glue Specialty Supervisor: [id number] 5 Glue Specialty Supervisor: [id number] 6 Glue Specialty Supervisor: [id number] 7 Because ethnic data is not always readily [...] 15-29 5 Kidney failure <15 (or dialysis) 8 Acute inflammation: >10.00 9 Acute inflammation: >10.00 10 Because ethnic data is not always [...] 5 Kidney failure <15 (or dialysis) 11 Because ethnic data is not always [...] 5 Kidney failure <15 (or dialysis) 12 Acute inflammation: >10.00 13 Because ethnic [...] 5 Kidney failure <15 (or dialysis) 14 Acute inflammation: >10.00 15 Glue Specialty Supervisor: [id number] FERNANDO PETTIT 16 SEE RESULT BELOW Name: PRICE GUARDADO: [address]: Jessie Lazar MD Acct: [id number] Unit: [id number] AGE: 60 Location: SDS Re10/13/15 SEX: M Status: REG SDC SPEC: [id number] GABO: 10/13/15-[address] [facility] [address]: Jessie Lazar MD REQ: [id number] RECD: 10/13/15 STATUS: RES OTHR DR: Gabbie [...] Stain - Direct PENDING * ML - [facility] ([facility]) . END OF REPORT * ML=Testing performed at Main Lab DEPARTMENT OF PATHOLOGY, [address] [place] [address] Vinayak Yanez M.D. Director [facility] # [id number] 17 SEE RESULT BELOW Name: PRICE GUARDADO : [address]: Jessie Lazar MD Acct: [id number] Unit: [id number] AGE: 60 Location: [place] [address] Re10/13/15 Dis: 10/19/15 SEX: M Status: DIS IN SPEC: [id number] GABO: 10/13/15-[address] [facility] [address]: Jessie Lazar MD REQ: [id number] RECD: 10/13/15 STATUS: RES OTHR DR: Gabbie Shell MD _ SOURCE: WOUND SPDESC:KNEE LEFT ORDERED: Tissue Cult/GS/R, Fungal - Other/R, Acid Fast Stain/U COMMENTS: CLOSTRIDIUM FINDINGS IN ADDITION TO S. AUREUS: Verbal to DR. SHELL by [id number] at 1411 on 10/15/15. Results read back [...] performed at Main Lab DEPARTMENT OF PATHOLOGY, [address] [place] [address] Vinayak Yanez M.D. Director [facility] # [id number] Patient: PRICE GUARDADO [id number] (Continued) Specimen: [id number] Collected: 10/13/15 Received: 10/13/15 (Continued) Procedure Result Reported Site Acid Fast Stain - Direct Final (continued) 10/14/15817 Due to limited sensitivity of the smear, results should be used as an adjunct in evaluating the patient's status and cultural examination is highly recommended for diagnosis. * ML - MAIN LAB ([facility]) . END OF REPORT * ML=Testing performed at Main Lab DEPARTMENT OF PATHOLOGY, [address] [place] [address] Vinayak Yanez M.D. Director [facility] # [id number] 18 SEE RESULT BELOW Name: PRICE GUARDADO : [address]: Jessie Lazar MD Acct: [id number] Unit: [id number] AGE: 60 Location: [place] [address] Re10/13/15 SEX: M Status: ADM IN SPEC: [id number] GABO: 10/13/15-[address] [facility] [address]: Jessie Lazar MD REQ: [id number] RECD: 10/13/15525 STATUS: RES OTHR DR: Gabbie Shell MD _ SOURCE: WOUND SPDESC:KNEE LEFT ORDERED: Anaerobic Cult/R, MRSA/SA SSTI/R, Culture Stain/R, Fungal - Other /R, Acid Fast Stain/U COMMENTS: Verbal to GEMINI CHAWLA by [id number] at 2020 on 10/13/15. Results read back [...] performed at Main Lab DEPARTMENT OF PATHOLOGY, [address] [place] [address] Vinayak Yanez M.D. Director [facility] # [id number] Patient: PRICE GUARDADO [id number] (Continued) Specimen: [id number] Collected: 10/13/15-1639 Received: 10/13/15 (Continued) Procedure Result Reported Site Acid Fast Stain - Direct Final (continued) 10/14/15809 Due to limited sensitivity of the smear, results should be used as an adjunct in evaluating the patient's status and cultural examination is highly recommended for diagnosis. * ML - MAIN LAB ([facility]) . END OF REPORT * ML=Testing performed at Main Lab DEPARTMENT OF PATHOLOGY, [address] [place] [address] Vinayak Yanez M.D. Director [facility] # [id number] 19 SEE RESULT BELOW Name: PRICE GUARDADO Arcenio : [address]: Jessie Lazar MD Acct: [id number] Unit: [id number] AGE: 60 Location: [place] [address]- Re10/13/15 Dis: 10/19/15 SEX: M Status: DIS IN SPEC: [id number] GABO: 10/13/15-[address] [facility] [address]: Jessie Lazar MD REQ: [id number] RECD: 10/13/15 STATUS: RES OTHR DR: Gabbie Shell MD _ SOURCE: WOUND SPDESC:KNEE LEFT ORDERED: Anaerobic Cult/R, MRSA/SA SSTI/R, Culture Stain/R, Fungal - Other /R, Acid Fast Stain/U COMMENTS: Verbal to GEMINI CHAWLA by [id number] at 2020 on 10/13/15. Results read back accurately. CLOSTRIDIUM FINDINGS IN ADDITION TO S. AUREUS: Verbal to DR. SHELL by [id number] at 1411 on 10/15/15. Results read back [...] performed at Main Lab DEPARTMENT OF PATHOLOGY, [address] [place] [address] Vinayak Yanez M.D. Director [facility] # [id number] Patient: PRICE GUARDADO [id number] (Continued) Specimen: [id number] Collected: 10/13/15-1639 Received: 10/13/15 (Continued) Procedure Result [...] These antibiotics are not available in the [facility] Formulary Contact the Microbiology Department for any additional antibiotic reporting. Fungal Cult - Other Sources Preliminary 10/24/15- 1325 ML Fungal Culture No Growth of Mycotic Organisms 1 week Acid Fast Stain - Direct Final 10/14/15- 0810 ML CONTINUED ON NEXT PAGE * ML=Testing performed at Main Lab DEPARTMENT OF PATHOLOGY, [address] [place] [address] Vinayak Yanez M.D. Director [facility] # [id number] Patient: PRICE GUARDADO [id number] (Continued) Specimen: [id number] Collected: 10/13/15 Received: 10/13/15 (Continued) Procedure Result Reported Site Acid Fast Stain - Direct Final (continued) 10/14/15809 AFB Smear Result No Acid Fast Bacillus Present (Negative) Preparation By Direct Smear Due to limited sensitivity of the smear, results should be used as an adjunct in evaluating the patient's status and cultural examination is highly recommended for diagnosis. * ML - MAIN LAB ([facility]) . END OF REPORT * ML=Testing performed at Main Lab DEPARTMENT OF PATHOLOGY, [address] [place] [address] Vinayak Yanez M.D. Director [facility] # [id number] 20 SEE RESULT BELOW Name: PRICE GUARDADO : [address]: Jessie Lazar MD Acct: [id number] Unit: [id number] AGE: 60 Location: [facility] Re10/13/15 SEX: M Status: REG SDC SPEC: [id number] GAOB: 10/13/15-[address] [facility] [address]: Jessie Lazar MD REQ: [id number] RECD: 10/13/15 STATUS: RES OTHR DR: Gabbie [...] Direct PENDING * ML - MAIN LAB ([facility]) . END OF REPORT * ML=Testing performed at Main Lab DEPARTMENT OF PATHOLOGY, [address] [place] [address] Vinayak Yanez M.D. Director [facility] # [id number] 21 SEE RESULT BELOW Name: PRICE GUARDADO : [address]: Jessie Lazar MD Acct: [id number] Unit: [id number] AGE: 60 Location: [facility] 338-01 Re10/13/15 Dis: 10/19/15 SEX: M Status: DIS IN SPEC: [id number] GABO: 10/13/15-[address] [facility] [address]: Jessie Lazar MD REQ: [id number] RECD: 10/13/15 STATUS: RES OTHR DR: Gabbie Shell MD _ SOURCE: WOUND SPDESC:KNEE LEFT ORDERED: Tissue Cult/GS/R, Fungal - Other/R, Acid Fast Stain/U COMMENTS: CLOSTRIDIUM FINDINGS IN ADDITION TO S. AUREUS: Verbal to DR. SHELL by [id number] at 1411 on 10/15/15. Results read back [...] performed at Main Lab DEPARTMENT OF PATHOLOGY, [address] [place] [address] Vinayak Yanez M.D. Director [facility] # [id number] Patient: PRICE GUARDADO [id number] (Continued) Specimen: [id number] Collected: 10/13/15-1639 Received: 10/13/15-175 (Continued) Procedure Result Reported Site Acid Fast Stain - Direct Final (continued) 10/14/15817 Due to limited sensitivity of the smear, results should be used as an adjunct in evaluating the patient's status and cultural examination is highly recommended for diagnosis. * ML - MAIN LAB ([facility]) . END OF REPORT * ML=Testing performed at Main Lab DEPARTMENT OF PATHOLOGY, [address] [place] [address] Vinayak Yanez M.D. Director [facility] # [id number] 22 SEE RESULT BELOW Name: PRICE GUARDADO : [address]: Jessie Lazar MD Acct: [id number] Unit: [id number] AGE: 60 Location: [facility] 338- Re10/13/15 SEX: M Status: ADM IN SPEC: [id number] GABO: 10/13/15-[address] [facility] [address]: Jessie Lazar MD REQ: [id number] RECD: 10/13/15 STATUS: RES OTHR DR: Gabbie Shell MD _ SOURCE: WOUND SPDESC:KNEE LEFT ORDERED: Anaerobic Cult/R, MRSA/SA SSTI/R, Culture Stain/R, Fungal - Other /R, Acid Fast Stain/U COMMENTS: Verbal to GEMINI CHAWLA by [id number] at 2020 on 10/13/15. Results read back [...] performed at Main Lab DEPARTMENT OF PATHOLOGY, [address] [place] [address] Vinayak Yanez M.D. Director [facility] # [id number] Patient: PRICE GUARDADO [id number] (Continued) Specimen: [id number] Collected: 10/13/15 Received: 10/13/15 (Continued) Procedure Result Reported Site Acid Fast Stain - Direct Final (continued) 10/14/15- 08 Due to limited sensitivity of the smear, results should be used as an adjunct in evaluating the patient's status and cultural examination is highly recommended for diagnosis. * ML - MAIN LAB ([facility]) . END OF REPORT * ML=Testing performed at Main Lab DEPARTMENT OF PATHOLOGY, [address] [place] [address] Vinayak Yanez M.D. Director [facility] # [id number] 23 SEE RESULT BELOW Name: PRICE GUARDADO : [address]: Jessie Lazar MD Acct: [id number] Unit: [id number] AGE: 60 Location: [facility] 338-01 Re10/13/15 Dis: 10/19/15 SEX: M Status: DIS IN SPEC: [id number] GABO: 10/13/15-[address]: Jessie Lazar MD REQ: [id number] RECD: 10/13/15 STATUS: RES OTHR DR: Gabbie Shell MD _ SOURCE: WOUND SPDESC:KNEE LEFT ORDERED: Anaerobic Cult/R, MRSA/SA SSTI/R, Culture Stain/R, Fungal - Other /R, Acid Fast Stain/U COMMENTS: Verbal to GEMINI CHAWLA by [id number] at 2020 on 10/13/15. Results read back accurately. CLOSTRIDIUM FINDINGS IN ADDITION TO S. AUREUS: Verbal to DR. SHELL by [id number] at 1411 on 10/15/15. Results read back [...] performed at Main Lab DEPARTMENT OF PATHOLOGY, [address] [place] [address] Vinayak Yanez M.D. Director [facility] # [id number] Patient: PRICE GUARDADO [id number] (Continued) Specimen: [id number] Collected: 10/13/15 Received: 10/13/15 (Continued) Procedure Result [...] These antibiotics are not available in the [facility] Formulary Contact the Microbiology Department for any additional antibiotic reporting. Fungal Cult - Other Sources Preliminary 10/31/15- 1443 ML Fungal Culture No Growth of Mycotic Organisms 2 weeks Acid Fast Stain - Direct Final 10/14/15- 08 ML CONTINUED ON NEXT PAGE * ML=Testing performed at Main Lab DEPARTMENT OF PATHOLOGY, [address] [place] [address] Vinayak Yanez M.D. Director [facility] # [id number] Patient: PRICE GUARDADO [id number] (Continued) Specimen: [id number] Collected: 10/13/15-1639 Received: 10/13/15 (Continued) Procedure Result Reported Site Acid Fast Stain - Direct Final (continued) 10/14/15809 AFB Smear Result No Acid Fast Bacillus Present (Negative) Preparation By Direct Smear Due to limited sensitivity of the smear, results should be used as an adjunct in evaluating the patient's status and cultural examination is highly recommended for diagnosis. * ML - MAIN LAB ([facility]) . END OF REPORT * ML=Testing performed at Main Lab DEPARTMENT OF PATHOLOGY, [address] [place] [address] Vinayak Yanez M.D. Director [facility] # [id number] 24 SEE RESULT BELOW Name: PRICE GUARDADO : [address]: Jessie Lazar MD Acct: [id number] Unit: [id number] AGE: 60 Location: SDS Re10/13/15 SEX: M Status: REG SDC SPEC: [id number] GABO: 10/13/15-[address] [facility] [address]: Jessie Lazar MD REQ: [id number] RECD: 10/13/15 STATUS: RES OTHR DR: Gabbie [...] Direct PENDING * ML - MAIN LAB ([facility]) . END OF REPORT * ML=Testing performed at Main Lab DEPARTMENT OF PATHOLOGY, [address] [place] [address] Vinayak Yanez M.D. Director [facility] # [id number] 25 SEE RESULT BELOW Name: PRICE GUARDADO : [address]: Jessie Lazar MD Acct: [id number] Unit: [id number] AGE: 60 Location: [facility] 338-01 Re10/13/15 Dis: 10/19/15 SEX: M Status: DIS IN SPEC: [id number] GABO: 10/13/15-[address]: Jessie Lazar MD REQ: [id number] RECD: 10/13/15 STATUS: RES OTHR DR: Gabbie Shell MD _ SOURCE: WOUND SPDESC:KNEE LEFT ORDERED: Tissue Cult/GS/R, Fungal - Other/R, Acid Fast Stain/U COMMENTS: CLOSTRIDIUM FINDINGS IN ADDITION TO S. AUREUS: Verbal to DR. SHELL by [id number] at 1411 on 10/15/15. Results read back [...] performed at Main Lab DEPARTMENT OF PATHOLOGY, [address] [place] [address] Vinayak Yanez M.D. Director [facility] # [id number] Patient: PRICE GUARDADO [id number] (Continued) Specimen: [id number] Collected: 10/13/15 Received: 10/13/15 (Continued) Procedure Result Reported Site Acid Fast Stain - Direct Final (continued) 10/14/15817 Due to limited sensitivity of the smear, results should be used as an adjunct in evaluating the patient's status and cultural examination is highly recommended for diagnosis. * ML - MAIN LAB ([facility]) . END OF REPORT * ML=Testing performed at Main Lab DEPARTMENT OF PATHOLOGY, [address] [place] [address] Vinayak Yanez M.D. Director [facility] # [id number] 26 SEE RESULT BELOW Name: PRICE GUARDADO : [address]: Jessie Lazar MD Acct: [id number] Unit: [id number] AGE: 60 Location: [place] [address] Re10/13/15 SEX: M Status: ADM IN SPEC: [id number] GABO: 10/13/15-[address] [facility] [address]: Jessie Lazar MD REQ: [id number] RECD: 10/13/15 STATUS: RES OTHR DR: Gabbie Shell MD _ SOURCE: WOUND SPDESC:KNEE LEFT ORDERED: Anaerobic Cult/R, MRSA/SA SSTI/R, Culture Stain/R, Fungal - Other /R, Acid Fast Stain/U COMMENTS: Verbal to GEMINI REYES CMAMY by [id number] at 2020 on 10/13/15. Results read back [...] performed at Main Lab DEPARTMENT OF PATHOLOGY, [address] [place] [address] Vinayak Yanez M.D. Director [facility] # [id number] Patient: PRICE GUARDADO [id number] (Continued) Specimen: [id number] Collected: 10/13/15 Received: 10/13/15 (Continued) Procedure Result Reported Site Acid Fast Stain - Direct Final (continued) 10/14/15809 Due to limited sensitivity of the smear, results should be used as an adjunct in evaluating the patient's status and cultural examination is highly recommended for diagnosis. * ML - MAIN LAB ([facility]) . END OF REPORT * ML=Testing performed at Main Lab DEPARTMENT OF PATHOLOGY, [address] [place] [address] Vinayak Yanez M.D. Director [facility] # [id number] 27 SEE RESULT BELOW Name: PRICE GUARDADO : [address]: Jessie Lazar MD Acct: [id number] Unit: [id number] AGE: 60 Location: [place] [address] Re10/13/15 Dis: 10/19/15 SEX: M Status: DIS IN SPEC: [id number] GABO: 10/13/15-[address] [facility] [address]: Jessie Lazar MD REQ: [id number] RECD: 10/13/15 STATUS: RES OTHR DR: Gabbie Shell MD _ SOURCE: WOUND SPDESC:KNEE LEFT ORDERED: Anaerobic Cult/R, MRSA/SA SSTI/R, Culture Stain/R, Fungal - Other /R, Acid Fast Stain/U COMMENTS: Verbal to GEMINI CHAWLA by [id number] at 2020 on 10/13/15. Results read back accurately. CLOSTRIDIUM FINDINGS IN ADDITION TO S. AUREUS: Verbal to DR. SHELL by [id number] at 1411 on 10/15/15. Results read back [...] performed at Main Lab DEPARTMENT OF PATHOLOGY, [address] [place] [address] Vinayak Yanez M.D. Director [facility] # [id number] Patient: PRICE GUARDADO [id number] (Continued) Specimen: [id number] Collected: 10/13/15-1639 Received: 10/13/15 (Continued) Procedure Result [...] These antibiotics are not available in the [facility] Formulary Contact the Microbiology Department for any additional antibiotic reporting. Fungal Cult - Other Sources Preliminary 11/07/15- 1229 ML Fungal Culture No Growth of Mycotic Organisms 3 weeks Acid Fast Stain - Direct Final 10/14/15809 ML CONTINUED ON NEXT PAGE * ML=Testing performed at Main Lab DEPARTMENT OF PATHOLOGY, [address] [place] [address] Vinayak Yanez M.D. Director [facility] # [id number] Patient: PRICE GUARDADO [id number] (Continued) Specimen: [id number] Collected: 10/13/15 Received: 10/13/15-175 (Continued) Procedure Result Reported Site Acid Fast Stain - Direct Final (continued) 10/14/15- 08 AFB Smear Result No Acid Fast Bacillus Present (Negative) Preparation By Direct Smear Due to limited sensitivity of the smear, results should be used as an adjunct in evaluating the patient's status and cultural examination is highly recommended for diagnosis. * ML - MAIN LAB ([facility]) . END OF REPORT * ML=Testing performed at Main Lab DEPARTMENT OF PATHOLOGY, [address] [place] [address] Vinayak Yanez M.D. Director [facility] # [id number] 28 SEE RESULT BELOW Name: PRICE GUARDADO : [address]: Jessie Lazar MD Acct: [id number] Unit: [id number] AGE: 60 Location: [facility] Re10/13/15 SEX: M Status: REG [facility] SPEC: [id number] GABO: 10/13/15-Jimmie RANKIN DR: Jessie Lazar MD REQ: [id number] RECD: 10/13/15 STATUS: RES OTHR DR: Gabbie [...] Direct PENDING * ML - MAIN LAB ([facility]) . END OF REPORT * ML=Testing performed at Main Lab DEPARTMENT OF PATHOLOGY, [address] [place] [address] Vinayak Yanez M.D. Director [facility] # [id number] 29 SEE RESULT BELOW Name: DEBBYPRICE : [address]: Jessie Lazar MD Acct: [id number] Unit: [id number] AGE: 60 Location: [facility] 338-01 Re10/13/15 Dis: 10/19/15 SEX: M Status: DIS IN SPEC: [id number] GABO: 10/13/15-[address] [facility] [address]: Jessie Lazar MD REQ: [id number] RECD: 10/13/15 STATUS: DOLORES CARLOS DR: Gabbie Shell MD _ SOURCE: WOUND SPDESC:KNEE LEFT ORDERED: Tissue Cult/GS/R, Fungal - Other/R, Acid Fast Stain/U COMMENTS: CLOSTRIDIUM FINDINGS IN ADDITION TO S. AUREUS: Verbal to DR. SHELL by [id number] at 1411 on 10/15/15. Results read back [...] NEXT PAGE * ML=Testing performed at [facility] DEPARTMENT OF PATHOLOGY, [address] [place] [address] Vinayak Yanez M.D. Director [facility] # [id number] Patient: PRICE GUARDADO [id number] (Continued) Specimen: [id number] Collected: 10/13/15-1639 Received: 10/13/15 (Continued) Procedure Result Reported Site Acid Fast Stain - Direct Final (continued) 10/14/15817 Due to limited sensitivity of the smear, results should be used as an adjunct in evaluating the patient's status and cultural examination is highly recommended for diagnosis. * ML - MAIN LAB ([facility]) . END OF REPORT * ML=Testing performed at Main Lab DEPARTMENT OF PATHOLOGY, [address] [place] [address] Vinayak Yanez M.D. Director [facility] # [id number] 30 SEE RESULT BELOW Name: PRICE GUARDADO : [address]: Jessie Lazar MD Acct: [id number] Unit: [id number] AGE: 60 Location: [place] [address] Re10/13/15 SEX: M Status: ADM IN SPEC: [id number] GABO: 10/13/15-[address] [facility] [address]: Jessie Lazar MD REQ: [id number] RECD: 10/13/15 STATUS: RES OTHR DR: Gabbie Shell MD _ SOURCE: WOUND SPDESC:KNEE LEFT ORDERED: Anaerobic Cult/R, MRSA/SA SSTI/R, Culture Stain/R, Fungal - Other /R, Acid Fast Stain/U COMMENTS: Verbal to GEMINI CHAWLA by [id number] at 2020 on 10/13/15. Results read back [...] performed at Main Lab DEPARTMENT OF PATHOLOGY, [address] [place] [address] Vinayak Yanez M.D. Director [facility] # [id number] Patient: PRICE GUARDADO [id number] (Continued) Specimen: [id number] Collected: 10/13/15-1639 Received: 10/13/15 (Continued) Procedure Result Reported Site Acid Fast Stain - Direct Final (continued) 10/14/15809 Due to limited sensitivity of the smear, results should be used as an adjunct in evaluating the patient's status and cultural examination is highly recommended for diagnosis. * ML - MAIN LAB ([facility]) . END OF REPORT * ML=Testing performed at Main Lab DEPARTMENT OF PATHOLOGY, [address] [place] [address] Vinayak Yanez M.D. Director [facility] # [id number] 31 SEE RESULT BELOW Name: PRICE GUARDADO : [address]: Jessie Lazar MD Acct: [id number] Unit: [id number] AGE: 60 Location: [facility] 338-01 Re10/13/15 Dis: 10/19/15 SEX: M Status: DIS IN SPEC: [id number] GABO: 10/13/15-[address] [facility] [address]: Jessie Lazar MD REQ: [id number] RECD: 10/13/15 STATUS: COMP TERRANCE DR: Gabbie Shell MD _ SOURCE: WOUND SPDESC:KNEE LEFT ORDERED: Anaerobic Cult/R, MRSA/SA SSTI/R, Culture Stain/R, Fungal - Other /R, Acid Fast Stain/U COMMENTS: Verbal to GEMINI CHAWLA by [id number] at 2020 on 10/13/15. Results read back accurately. CLOSTRIDIUM FINDINGS IN ADDITION TO S. AUREUS: Verbal to DR. SHELL by [id number] at 1411 on 10/15/15. Results read back accurately. Procedure Result Reported Site Anaerobic Culture Final 10/17/15- 834 ML Organism 1 CLOSTRIDIUM PERFRINGENS Quantity 3+ Anaerobic sensitivities are not routinely performed. Positive isolates will be saved for one week. Please call the Microbiology Laboratory if susceptibility testing is needed. MRSA/S. aureus SSTI PCR Final 01/2017 ML Organism 1 MRSA NEGATIVE Organism 2 S.AUREUS POSITIVE Wound/Misc Gram Stain Final 10/15/15845 ML 3+ Neutrophils 4+ Gram Positive Cocci 3+ Gram Positive Bacilli 1+ Gram Negative Bacilli Wound/Misc Culture Final 10/15/15845 ML CONTINUED ON NEXT PAGE * ML=Testing performed at Main Lab DEPARTMENT OF PATHOLOGY, [address] [place] [address] Vinayak Yanez M.D. Director [facility] # [id number] Patient: PRICE GUARDADO [id number] (Continued) Specimen: [id number] Collected: 10/13/15-1639 Received: 10/13/15 (Continued) Procedure Result [...] These antibiotics are not available in the [facility] Formulary Contact the Microbiology Department for any additional antibiotic reporting. Fungal Cult - Other Sources Final 11/14/15- 1427 ML Fungal Culture No Growth of Mycotic Organisms 4 weeks Acid Fast Stain - Direct Final 10/14/15- 0810 ML CONTINUED ON NEXT PAGE * ML=Testing performed at Main Lab DEPARTMENT OF PATHOLOGY, [address] [place] [address] Vinayak Yanez M.D. Director [facility] # [id number] Patient: PRICE GUARDADO [id number] (Continued) Specimen: [id number] Collected: 10/13/15-1639 Received: 10/13/15 (Continued) Procedure Result Reported Site Acid Fast Stain - Direct Final (continued) 10/14/15809 AFB Smear Result No Acid Fast Bacillus Present (Negative) Preparation By Direct Smear Due to limited sensitivity of the smear, results should be used as an adjunct in evaluating the patient's status and cultural examination is highly recommended for diagnosis. * ML - MAIN LAB ([facility]) . END OF REPORT * ML=Testing performed at Main Lab DEPARTMENT OF PATHOLOGY, [address] [place] [address] Vinayak Yanez M.D. Director [facility] # [id number] 32 SOURCE: KNEE, KNEE WOUND SWAB MYCOBACTERIAL CULTURE FINAL No growth after 60 days of incubation. Test Performed by: [facility] - [address] [address] [employer]: Cam Isidro II, M.D., Ph.D. Procedures Date CPT Code Description Status 05/29/2018 14630 Incision Bone Cortex Foot Completed 05/29/2018 75218 Incision Bone Cortex Foot Completed 05/29/2018 25376 Layer Closure Of Wounds 2.6CM - 7.5CM Completed Neck,Hands,Feet,Genitalia 05/29/2018 50211 Layer Closure Of Wounds 2.6CM - 7.5CM Completed Neck,Hands,Feet,Genitalia 05/29/2018 71751 Debridement Tissue/Muscle/Bone Completed 05/29/2018 63193 Debridement Tissue/Muscle/Bone Completed 04/24/2018 61121 Amputation,Toe;Interphalangeal Joint Completed 04/24/2018 26033 Amputation,Toe;Interphalangeal Joint Completed 04/24/2018 06430 Amputation,Toe;Interphalangeal Joint Completed 04/24/2018 43297 Amputation,Toe;Interphalangeal Joint Completed 04/18/2018 73139 Revascularization,Endovascular W/Atherectomy, Inc Completed Angioplasty 04/18/2018 15646 Revascularization,Endovascular W/Atherectomy, Inc Completed Angioplasty 04/18/2018 25219 Angio Extremity, Bilateral Completed 04/18/2018 02573 Ultrasound Guidance For Vascular Access Completed 04/18/2018 28672 Moderate Sedation Services; Same Phys Intl 15 Mins; PT Completed >=5 Years 04/18/2018 09900 Moderate Sedation Services; Same Phys Each Additional Completed 15 Mins 12/10/2016 69108 ECHO Transthorasic Realtime 2D W Doppler & Color Flow Completed Hosp 12/09/2016 64111 EKG, Interpretation Only Completed 01/10/2016 21274 Treadmill Interp/Report Only Completed 01/10/2016 66648 Stress Test Supervsn W/Out I/R Completed 10/15/2015 22068 Arthroscopy,Knee For Infection,Lavage & Drainage Completed 10/15/2015 22694 Arthroscopy,Knee For Infection,Lavage & Drainage Completed 10/15/2015 78767 Arthroscopy,Knee For Infection,Lavage & Drainage Completed 10/15/2015 92395 Arthroscopy,Knee For Infection,Lavage & Drainage Completed 10/13/2015 78651 Arthroscopy,Knee,Meniscectomy Medial Or Lateral Completed 10/13/2015 67871 Arthroscopy,Knee,Meniscectomy Medial Or Lateral Completed 10/13/2015 31175 Arthroscopy,Knee For Infection,Lavage & Drainage Completed 05/18/2013 24844 EEG Recording Awake & Asleep Completed 03/13/2013 41278 Color Flow Doppler/Interp & Reprt Completed 03/13/2013 24882 Pulse Wave/Continuous-Interp.RPT Completed 03/13/2013 54952 Echocardiography, Transesophageal, Real Time W/Image 2D Completed W/W/O M-M Encounters Type Date Location Provider CPT E/M Dx [facility] [address] Z89.412 1:40p Infectious Diseases Gabrielle García E11.52 Office Visit 04/22/2018 1:30p [facility] [place] [address] M86.172 C.M.A. Office Visit 04/19/2018 9:33a [facility] [place] [address] Z47.89 C.M.A. Office Visit 04/19/2018 11:31a [facility] [place] [address] L97.513 Assoc, Hospitalists E11.52 I73.9 Office Visit 04/18/2018 11:30a [facility] Aldo Lambert, 56911 L97.513 Assoc,pc Hospitalists [place] E11.52 I73.9 F32.9 G25.0 Office Visit 04/17/2018 11:30a [facility] Assoc,pc Joe Ramírez, 26988 L97.513 Hospitalists Gabrielle E11.52 Office Visit 04/16/2018 1:09p [facility] Assoc,pc Steffanie Larsen 36176 I73.9 Hospitalists MARJORIE Bradley E11.51 Office Visit 04/16/2018 9:11a [facility] Richardson Mahan, 45452 I70.213 Of Pal Anthony M87.878 Office Visit 04/15/2018 2:11p [facility] SAIDA Rea 93775 M87.078 C.M.A. L03.032 Office Visit 04/15/2018 11:29a [facility], [place] [address] L97.513 Hospitalists E11.9 F32.9 Office Visit 04/15/2018 12:44p [facility] Madalyn García, 44597 E11.52 Elizabeth Umanzor M.D. Z86.73 Office Visit 12/10/2016 2:49p [facility] [address] G45.9 Office Visit 12/10/2016 3:56p [facility], Tiffanie Hope, 38803 R07.2 Hospitalists [employer]SEMBLY SUPERVISOR R55 E11.9 G45.9 Office Visit 12/09/2016 1:48p [facility] Sae Major, 35954 G45.9 M.D. Office Visit 12/09/2016 3:55p [facility], Orlin Junior 26127 R55 Hospitalstephan LI M.D. R07.2 E11.9 G45.9 Office Visit 01/10/2016 12:51p [facility] Sadie Rivera, 12371 R07.9 Assoc, ASSEMBLY SUPERVISOR Hospitalists N17.9 E11.9 I10 Office Visit 01/09/2016 12:50p [facility] Assoc, Ezekiel Curtis.Lionel 41827 R07.9 Hospitalists E11.9 N17.9 I10 Office Visit 11/30/2015 3:20p [facility] Madalyn Jordan 19817 M00.062 Infectious Noé García M.D. Office Visit 11/16/2015 3:20p [facility] Madalyn Jordan 52455 M00.062 Infectious Noé García M.D. B96.7 Office Visit 11/03/2015 2:00p [facility] Madalyn Jordan 98178 M00.062 Elizabeth García M.D. M00.062 Office Visit 10/19/2015 9:02a [facility] Madalyn Jordan 24500 M00.062 Elizabeth García M.D. L02.416 Office Visit 10/19/2015 10:02a [facility] [place] [address] M00.062 Assoc, Hospitalists B96.7 E11.8 Office Visit 10/18/2015 8:56a [facility] Jamar Jordan 98999 M00.062 Infectious Diseases Gabrielle García R19.7 V99.xxxA B96.7 Office Visit 10/18/2015 10:02a [facility], 09244 M00.062 Hospitalists Gabrielle E11.8 B96.7 Office Visit 10/17/2015 10:01a [facility], 00622 M00.062 Hospitalists Gabrielle B96.7 E11.8 Office Visit 10/16/2015 10:00a [facility], 94186 M00.062 Hospitalists Gabrielle B96.7 E11.8 Office Visit 10/15/2015 10:00a [facility] Assoc,[facility], 63296 M00.062 Hospitalists Gabrielle B96.7 E11.8 Office Visit 10/14/2015 9:59a [facility] Assoc, Nasima Prescottr, 85030 M00.062 Hospitalists D.O. E11.8 Office Visit 10/13/2015 9:58a [facility] Tiffanie Hope, 06394 M00.062 Ass, Hospitalists ASSEMBLY SUPERVISOR E11.8 Office Visit 10/13/2015 7:00a [facility] [place] [address] M25.562 C.M.A. M25.462 S81.012A B96.89 Office Visit 07/29/2013 8:30a [facility] [place] [address] 333.1 Services Of [employer] Developer M.D. Office Visit 06/19/2013 11:30a [facility] [place] [address] 437.9 Services Of [employer] M.D. Office Visit 05/12/2013 10:45a [facility] [place] [address] 345.40 Services Of [employer] Gabrielle 438.89 331.83 Office Visit 03/13/2013 12:53p [facility] [place] Warren 72781 435.9 Services Of [employer] M.DAdrianna Office Visit 03/13/2013 2:43p [facility] Nasima Colmenares, 00087 784.51 Assoc, Hospitalists D.O. 272.2 435.9 305.1 Office Visit 03/12/2013 12:52p [facility] [place], 42650 435.9 Services Of [facility] M.D. Office Visit 03/12/2013 2:42p [facility] Michelle Sherron, 12605 784.51 Assoc, Hospitalists 272.2 434.11 305.1 Plan of Care Future Appointment(s):06/20/2018 1:00 pm - Jose Juan King MD at [facility] C.MArley.06/16/2018 1:20 pm - Jamar García M.D. at [facility]
--- OUTSIDE RECORDS SUMMARY | 2018-07-01 13:10 | XMS REPORT ---
:1955 External Reference #:[id number] Author Organization [facility] Address [address] [place] [address] Phone [phone] Care Team Providers Name Role Phone Gabbie Shell M.D. 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 Primary Care Physician Unavailable Payers Type Date Identification Payment Subscriber Numbers Provider Health Maintenance Effective: Policy Number: [facility] ([facility]) 09/30/2010 [id number] [facility] Almarazjuan francisco Group Number: [id number] [address] PayID: [id number] [place] [address] Medigap Part B Effective: Policy Number: Medicare Justin Guardado 07/31/2018 [id number] PayID: [id number] [address] [place] [address] Commercial Policy Number: [id number] Insurance Change Price Guardado Group Name: Medicare PayID: [id number] Problems Date Description Provider Status Onset: 10/28/2014 Essential tremor Cas Salas Active Onset: 10/28/2014 Mixed hyperlipidemia Cas Salas Active Onset: 10/28/2014 Depressive disorder Doroteo Willis M.D. Active Onset: 10/28/2014 Type 2 diabetes mellitus with Gabbie Shell M.D. Active multiple complications Onset: 10/28/2014 Complex partial epileptic seizure Gabbie Shell M.D. Active Onset: 10/28/2014 History of cerebrovascular Gabbie Shell M.D. Active accident without residual deficits Onset: 09/08/2015 Type II diabetes mellitus Gabbie Shell M.D. Active uncontrolled Onset: 01/17/2016 Tobacco user Gabbie Shell M.D. Active Onset: 04/19/2016 Nausea and vomiting Paco Hurt M.D. 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 Active Onset: 05/02/2012 Cellulitis and abscess of upper Yogeshberenice Hutton M.D. Resolved limb Resolved: 10/28/2014 Onset: [...] on a diabetic diet Occupation working for [employer] Cigarette Use Former Cigarette Smoker ETOH Use Denies alcohol use Smoking Patient is a former smoker Allergies, Adverse Reactions, Alerts Date Description Reaction Status Severity Comments 05/02/2012 NKDA active Medications Medication Date Status Form Strength Qnty SIG Indications Ordering Provider Loperamide 02/22 Active Capsules 2mg 90cap 2 tabs at R19.7 s onset of , diarrhea and M.D. can repeat after each loose stool max 8 tabs daily Lancets 10/02 Active Misc Thin 30G 300un tests blood Gabbie Ultra Thin its glucose three [place], 30G times day - M.D. dx: e11.9 - last seen 08/29/17 Glipizide ER 06/19 Active Tablets ER 10mg 30tab 1 tab by E11.65 24HR s mouth every [place], day M.D. Metformin 04/16 Active Tablets 500mg 1 by mouth E11.65 Gabbie HCL daily [place], M.D. Lorazepam 11/27 Active Tablets 1mg 90tab 1/2-1 tab by F33.0 s mouth three [place], times a day M.D. as needed Freestyle 05/03 Active Strips 180un test 3x daily E1165 Gabbie Insulinx its dx:e11.9 [place], Blood M.D. Glucose Test Strips Freestyle 02/05 Active Kit W/Device 1unit monitor blood Gabbie Insulin s glucose [place], Blood fasting 3x M.D. Glucose daily Monitoring System Pravastatin 05/16 Active Tablets 20mg 90tab Take 1 Tablet E78.2 Paco F. s By Mouth Shallish, Every Day M.D. Maximum Daily Dose Of 1 Per Day Wellbutrin Active Tablets 300mg 1 po qd Unknown Lamictal Active Tablets 200mg 1 po bid Unknown V-Go 30 Active insulin Unknown disposable pump-apply daily to deliver 1.25 units per hour and on demand Docusate Active Capsules 100mg 1 by mouth Unknown Sodium twice a day as needed constipation Plavix Active Tablets 75mg 1 by mouth Unknown every day Nicotine Active Patches 14mg/24HR apply new Unknown Transdermal / 24HR patch daily System Vancomycin Active Solution Cephalexin Active Suspension Rec Glipizide ER 08/30 Hx Tablets ER 5mg 90tab 1 tab by E11.65 24HR s mouth every [place], - day M.D. 04/16 Dicyclomine 07/25 Hx Capsules 10mg 90cap 1 tab every 6 R15.2 Gabbie HCL /2015 s hours a [place], - needed M.D. 04/16 Reglan 05/03 Hx Tablets 10mg 30tab take 1 tablet R11.2 Doroteo J. s by mouth 3 Isadoraiman, - times daily M.D. 06/19 as needed Lisinopril 12/05 Hx Tablets 20mg 30tab 1 by mouth E11.65 s every day [place], - M.D. 06/19 Dicyclomine 05/05 Hx Capsules 10mg 90cap 1 tab every 6 R15.2 Gabbie HCL /2014 s hours a [place], - needed M.D. 01/16 Lisinopril 01/14 Hx Tablets 5mg 30tab 1 by mouth E11.65 s every day [place], - M.D. 12/05 Glipizide ER 10/28 Hx Tablets ER 10mg 30tab 1 tab by E11.65 24HR s mouth every [place], - day M.D. 08/30 Lantus 10/28 Hx Solution 100Unit/M 6unit 25 units in E11.65 Doroteo Chiu Pen-Inject L s the morning Isadoraberenice, - and 50 units M.D. 06/19 at night /2015 Lantus 10/11 Hx Solution 100Unit/M 1mont inject 55 Doroteo Chiu Pen-Inject L h units q pm as Lazaro, - directed M.D. 10/28 Glipizide XL 04/04 Hx Tablets ER 5mg 30tab Take 1 Tablet Doroteo Nava /2013 24HR s By Mouth One Lazaro, - Time Daily M.D. 01/08 Pravastatin 07/21 Hx Tablets 10mg 30tab 1 by mouth 272.2 s every day [place], - M.D. 05/16 Bactrim DS 11/04 Hx Tablets 800-160mg 20tab 1 po bid x 10 682.3 s days january fill Rm, - w/ generic Afnp-C 11/18 Glipizide ER 11/04 Hx Tablets ER 5mg 30tab Take One 250.00 24HR s Tablet By Rm, - Mouth Once Afnp-C 10/28 Amoxicillin/ 05/02 Hx Tablets 875-125mg 20tab 1 bid w/ Yogesh T. Clavulanate /2011 s food. Midura, Potassium - M.D. 09/02 Keflex 05/07 Hx Capsules 500mg 20cap 1 po bid Doroteo Nava /2010 s Lazaro - LeeanneDAdrianna 05/02 BD Pen 04/09 Hx 100un use twice a Doroteo Nava Needle Short /2010 its day with Lazaro, 31GX5/16"_8m - lantus pen dx M.DAdrianna m 06/19 250.00 Vicodin 03/02 Hx Tablets 5-500mg 30tab 1 po q4hrs Doroteo Nava /2010 s jongn Mandi Willis.DAdrianna 05/02 Handicapped 02/21 Hx needs Doroteo Nava Parking Pass /2010 handicapped [place], - sticker for M.D. 01/11 3 mths due to back pain [place]air 01/12 Hx use day Doroteo Nava Pen Lazaro, - M.D. 09/02 Lantus 01/12 Hx Sopn 100Unit/M 15uni inject 55 Doroteo Nava Solostar /2010 L ts units under Lazaro, - the skin M.D. 10/11 every as directed Ativan 04/06 Hx Tablets 0.5mg 90tab 1 po tid Doroteo Nava /2009 s Lazaro, - M.D. 01/12 Elete 01/26 Hx 1BLT elete Doroteo Nava /2009 glucometer Lazaro, - sticks M.D. 01/16 Lantus 01/26 Hx Solution 100Unit/M 1vial 30units daily Doroteo Nava /2009 L for Lazaro, - adventis M.D. 09/02 santifi pen Lantus 01/25 Hx use 10 Doroteo Nava Optipen /2009 units at [facility], - night M.D. 02/21 Lantus Pen 01/25 Hx Misc 31GX5/16 100un syringes and Doroteo Nava [place] /2009 its needles Lazaro - M.D. 06/19 Pravachol 05/06 Hx Tabs 40mg 30tab Take One Doroteo Nava /2008 s Tablet By Lazaro, - Mouth AT M.D. 09/02 Bedtime Lexapro 04/25 Hx Tablets 10mg 30tab 1 po qd Doroteo Nava /2008 s Mandi Willis M.DAdrianna 06/20 Penvk 03/18 Hx 500 20uni use bid x Doroteo Nava /2008 ts 10 days Mandi Willis M.DAdrianna 04/25 Vitamin B 02/04 Hx Capsules po qd [facility] 02/21 [facility] [place] Aspirin 02/[address] 81mg 1 po qd [facility] 05[facility] Metformin 02/04 Hx Tablets 1000mg 60tab take 1 tablet E11.65 Doroteo LIMA s by mouth two Lazaro, - times daily M.D. 04/16 Chantix Hx 1unit as directed Doroteo Drake /0000 s Mandi Willis M.D. 02/25 Lisinopril Hx Tablets 2.5mg 1 po qd Unknown /0000 - 01/25 Lexapro Hx Tablets 10mg 30tab 1 po qd Unknown /0000 s - 01/12 Zoloft / Hx Tablets 200mg 90tab 1 po qd Unknown / s - 01/16 Lamictal Hx Chewtabs 2mg Unknown / - 07/21 Imodium A-D Hx Tablets 2mg take 1 tablet Unknown by mouth - after loose 01/16 movement then 1 tab after each additional episode as needed (mdd=4 tabs) Vital Signs Date Vital Result Comment 06/12/2018 BP Systolic 136 mmHg BP Diastolic 60 mmHg Heart Rate 74 /min Body Temperature 97.5 F Respiratory Rate 16 /min 04/28/2018 BP Systolic 112 mmHg BP Diastolic [...] 6.3 x10^3/UL 1.5-7.2 Lymph# 1.4 x10^3/UL 0.7-4.9 Churchill# 0.4 x10^3/UL 0.1-0.9 Gran % 76.6 % High 42.2-75.2 Lymph % 18.1 % Low 20.5-51.1 Churchill% 5.3 % 1.7-9.3 Laboratory test finding 08/29/2017 [...] 6.1 x10^3/UL 1.5-7.2 Lymph# 0.8 x10^3/UL 0.7-4.9 Churchill# 0.3 x10^3/UL 0.1-0.9 Gran % 84.0 % High 42.2-75.2 Lymph % 11.5 % Low 20.5-51.1 Churchill% 4.5 % 1.7-9.3 Laboratory test finding 11/27/2016 [...] 3.78 mg/L < 5.00 17 CBC Electronic ([facility]) 05/03/2016 WBC 9.5 3.6-9.6 RBC 4.46 3.90-5.70 [...] Volume 1.5 mL 40 Body Fluid WBC 03434 40 Body Fluid RBC 11579 40 Body Fluid Neutrophils 94 40 Body [...] Body Fluid Appearance Cloudy Body Fluid Color Diagonal Body Fluid Volume 10 mL Body Fluid WBC TNP Body Fluid RBC TNP Body Fluid Neutrophils 93 Body Fluid Band 1 Body Fluid Lymph 5 Body Fluid Churchill 1 Body Fluid Total Cells Counted 100 [...] 6.7 x10^3/UL 1.5-7.2 Lymph# 0.9 x10^3/UL 0.7-4.9 Churchill# 0.4 x10^3/UL 0.1-0.9 Gran % 82.3 % High 42.2-75.2 Lymph % 11.9 % Low 20.5-51.1 Churchill% 5.8 % 1.7-9.3 Laboratory test finding 05/11/2015 Hemoglobin A1c (Fma/CMC,CX) 9.0% % High 4.1-5.7 Ua - Micro (Fma) 05/11/2015 Appearance clear Color yellow Glucose, Urine [...] Hyaline - /Lpf Granular - /Lpf WBC ([facility]) 4-6 RBC 0-1 Mucus mod amt /Lpf Epith - /Lpf Bacteria trace /Hpf Amorphous - /Lpf Crystals, Fluid (a/CMC/CTX) - Laboratory test 01/11/2015 Microalb, Random >300.0 mg/L mg/L High 0.5-37 finding (a/CMC/CTX) CBC Electronic ([facility]) 01/11/2015 WBC 7.6 3.6-9.6 RBC 5.10 3.90-5.70 Hemoglobin (a/CMC/CTX) 14.4 g/dL 12.1 - 17.2 Hematocrit (a/CMC/CTX) 42.9 % 36.1 - 50.3 Platelets 202 [...] x10^3/UL High 1.5-7.2 Lymph# 1.1 x10^3/UL 0.7-4.9 Churchill# 0.3 x10^3/UL 0.1-0.9 Gran % 82.0 % High 42.2-75.2 Lymph % 13.5 % Low 20.5-51.1 Churchill% 4.5 % 1.7-9.3 Laboratory test finding 10/05/2014 Hemoglobin A1c ([facility],CX) 12.4 % High 4.1-5.7 Sed Rate ([facility]) 38 mm Laboratory test finding 07/21/2013 Hemoglobin A1c 9.7% % High 4.1-5.7 ([facility],CX) Comprehensive Metabolic 06/16/2013 Albumin 4.4 g/dL 3.8-5.5 [...] (Direct) 185 mg/dL High 0-130 CBC Electronic ([facility]) 06/16/2013 WBC 8.4 3.6-9.6 RBC 5.19 3.90-5.70 Hemoglobin ([facility]/CTX) 14.9 g/dL 12.1 - 17.2 Hematocrit (Fma/CMC/CTX) 44.5 % 36.1 - 50.3 Platelets 173 10^3/ul 150-400 Lymph% 19.1 Low 20.5-51.1 Mixed% 5.9 Neutrophils % 75.0 Mean Corpuscular Vol 86 82.2-97.4 Mean Corpuscular Hemoglobin 28.6 27.6-33.3 Mean Corpuscular Hemo Concen 33.4 32.0-36.0 RDW 12.0 11.6-13.7 Mean Platelet Volume 7.2 6.5-11.0 Urinalysis 03/12/2013 Urine Color Yellow Urine Appearance Clear Urine Specific [place] (SEE NOTE) 1.010-1.030 61 Urine Esterase Negative [...] Glucose, Serum 236 mg/dL High 70-105 finding ([facility]/CMC/CTX) Comprehensive 09/02/2012 Albumin 4.6 g/dL 3.8-5.5 Metabolic [...] 09/02/2012 Hemoglobin A1c 14.0 % High 4.1-5.7 ([facility],CX) Basic Metabolic Profile 05/02/2012 BUN 13 mg/dL 6-26 Calcium 8.6 mg/dL 8.6-10.2 Chloride 91 mEq/L Low 94-112 67 Creatinine 0.9 mg/dL 0.6-1.4 Carbon Dioxide 25 mEq/L 21-32 Glucose 450 mg/dL High 70-105 68 Sodium 132 mEq/L Low 134-149 69 Potassium 4.3 mEq/L 3.6-5.5 BUN/Creat Ratio 15.7 Calc 8.0-36.0 Laboratory test finding 05/02/2012 Hemoglobin A1c ([facility]/CMC,CX) 12.5 % High 4.1-5.7 Laboratory test finding 05/07/2011 Hemoglobin A1c ([facility]/CMC,CX) 9.6 % High 4.1-5.7 Laboratory test finding 01/12/2011 Hemoglobin A1c ([facility],CX) 10.8 % High 4.1-5.7 CBC Electronic ([facility]) 01/12/2011 WBC 8.4 3.6-9.6 RBC 5.56 3.90-5.70 Hemoglobin (Fma/CMC/CTX) 16.3 g/dL 12.1 - 17.2 Hematocrit (Fma/CMC/CTX) 48.3 % 36.1 - 50.3 Platelets 185 [...] Hemoglobin A1c 7.3 % High 4.1-5.7 finding (a/[facility],CX) Laboratory test 02/04/2009 Hemoglobin A1c 7.8 % High 4.1-5.7 finding (a/[facility],CX) Laboratory test 02/04/2009 TSH 1.79 mIU/L 0.50-6.00 [...] 76 VLDL (Calculated) 48 mg/dL 0-50 76 Comprehensive Metabolic Prof 02/04/2009 Albumin 4.2 g/dL 3.8-5.5 76 Alk. [...] BUN/Creat Ratio 12.7 Calc 8.0-36.0 76 1 Sound Art Instructor: [id number] 2 Sound Art Instructor: [id number] Sound Art Instructor: [id number] 4 Sound Art Instructor: [id number] 5 Because ethnic data is not always [...] and in selective patients <6.0%.Please refer to [place] [employer] Diabetic care guidelines for further information. 7 SEE RESULT BELOW Name: PRICE GUARDADO : [address]: Raul Farris MD Acct: [id number] Unit: [id number] AGE: 61 Location: ENDO Re03/08/17 SEX: M Status: REG REF SPEC: [id number] GABO: 03/08/17-1159 [facility] DR: Raul Farris MD REQ: [id number] RECD: 03/08/17-1222 STATUS: DOLORES CARLOS DR: Gabbie Shell MD _ SOURCE: STOOL SPDESC: ORDERED: Occult Bl, Diag Procedure Result Reported Site Stool Occult Blood (1) Final 03/08/17- 1249 ML Stool Occult Blood Negative Collection Date (1) 03/08/17 * ML - MAIN LAB ([facility]) . END OF REPORT * ML=Testing performed at Main Lab DEPARTMENT OF PATHOLOGY, [address] [place] [address] Vinayak Yanez M.D. Director [facility] # [id number] 8 SEE RESULT BELOW Name: PRICE GUARDADO : [address]: Raul Farris MD Acct: [id number] Unit: [id number] AGE: 61 Location: ENDO Re03/08/17 SEX: M Status: REG REF SPEC: [id number] GABO: 03/08/17-1142 [facility] DR: Raul Farris MD REQ: [id number] RECD: 03/08/17 STATUS: DOLORES CARLOS DR: Gabbie Shell MD _ SOURCE: GAS ANTRUM SPDESC: ORDERED: Clotest Procedure Result Reported Site Clotest Final 03/09/17748 ML Clotest Negative * ML - MAIN LAB ([facility]) . END OF REPORT * ML=Testing performed at Main Lab DEPARTMENT OF PATHOLOGY, [address] [place] [address] Vinayak Yanez M.D. Director [facility] # [id number] 9 Sound Art Instructor: [id number] 10 SEE RESULT BELOW Name: PRICE GUARDADO Arcenio : [address]: Raul Farris MD Acct: [id number] Unit: [id number] AGE: 61 Location: ENDO Re03/08/17 SEX: M Status: DEP REF SPEC: [id number] GABO: 03/08/17-142 [facility] DR: Raul Farris MD REQ: [id number] RECD: 03/08/17-150 STATUS: DARIANA CARLOS DR: Gabbie Shell MD _ ORDERED: LEVEL 4/3 FINAL DIAGNOSIS [...] at Main Lab DEPARTMENT OF PATHOLOGY, [address] [place] [address] Vinayak Yanez M.D. Director [facility] # [id number] RUN DATE: 03/11/17 [facility] LAB LIVE PAGE 2 Patient: SHOJUAN FRANCISCOPRICE [id number] (Continued) GROSS DESCRIPTION (Continued) GROSS DESCRIPTION (Continued) [...] at Main Lab DEPARTMENT OF PATHOLOGY, [address] [place] [address] Vinayak Yanez M.D. Director [facility] # [id number] 11 SEE RESULT BELOW Name: PRICE GUARDADO : [address]: Gabbie Shell MD Acct: [id number] Unit: [id number] AGE: 61 Location: [facility] Re11/30/16 SEX: M Status: REG REF SPEC: [id number] GABO: 11/30/16-[address]: Gabbie Shell MD REQ: [id number] RECD: 11/30/16-1024 STATUS: DOLORES PRECIADO DR: Rosalva Tinoco [facility] _ SOURCE: STOOL SPDESC: ORDERED: C. diff PCR/S, Stool Culture/R, O P: Giar/Crypt/R Procedure Result Reported Site Stool Culture Final [...] at Main Lab DEPARTMENT OF PATHOLOGY, [address] [place] [address] Vinayak Yanez M.D. Director [facility] # [id number] Patient: PRICE GUARDADO [id number] (Continued) Specimen: [id number] Collected: 11/30/16 Received: 11/30/16 (Continued) Procedure Result Reported Site O P: [...] is requested. Contact the Microbiology Department at [phone]. TEST LIMITATIONS: As with all diagnostic procedures, [...] not recommended. * ML - MAIN LAB ([facility]) . END OF REPORT * ML=Testing performed at Main Lab DEPARTMENT OF PATHOLOGY, [address] [place] [address] Vinayak Yanez M.D. Director [facility] # [id number] 12 RESULTS VERIFIED BY REPEAT ANALYSIS 13 RESULTS VERIFIED BY REPEAT ANALYSIS 14 Sound Art Instructor: [id number] TENZIN GOMEZ 15 Reference Range and Interpretation: TnI (ng/mL) Interpretation Less Than 0.03 ng/mL Not supportive of diagnosis of DE 0.03 - 0.50 ng/mL Indeterminate: suggest serial studies if clinically indicated. Greater than 0.5 ng/mL Consistent with diagnosis of DE 16 Because ethnic data is not always [...] weeks post infection, then gradually decline. 21 [facility] Severe Sepsis and Septic Shock Management Bundle [...] ug/ml 25 Critical Result LACT:2.6 Called to [id number] at: 17:51:37 by:[id number] Read back by:[id number] [facility] Severe Sepsis and Septic Shock Management Bundle [...] 0.03 ng/mL Not supportive of diagnosis of DE 0.03 - 0.50 ng/mL Indeterminate: suggest serial studies if clinically indicated. Greater than 0.5 ng/mL Consistent with diagnosis of DE 30 Because ethnic data is not always [...] (or dialysis) 31 Acute inflammation: >10.00 32 Sound Art Instructor: [id number] FERNANDO PETTIT 33 SEE RESULT BELOW Name: PRICE GUARDADO : [address]: Jessie Lazar MD Acct: [id number] Unit: [id number] AGE: 60 Location: [facility] Re10/13/15 SEX: M Status: REG [facility] SPEC: [id number] GABO: 10/13/15-1640 [facility] DR: Jessie Lazar MD REQ: [id number] RECD: 10/13/15 STATUS: RES OTHR DR: Gabbie [...] Direct PENDING * ML - MAIN LAB ([facility]) . END OF REPORT * ML=Testing performed at Main Lab DEPARTMENT OF PATHOLOGY, [address] [place] [address] Vinayak Yanez M.D. Director [facility] # [id number] 34 SEE RESULT BELOW Name: PRICE GUARDADO : [address]: Jessie Lazar MD Acct: [id number] Unit: [id number] AGE: 60 Location: [place] [address] Re10/13/15 Dis: 10/19/15 SEX: M Status: DIS IN SPEC: [id number] GABO: 10/13/15-1640 [facility] DR: Jessie Lazar MD REQ: [id number] RECD: 10/13/15 STATUS: COMP OTHR DR: Gabbie Shell MD _ SOURCE: WOUND SPDESC:KNEE LEFT ORDERED: Tissue Cult/GS/R, Fungal - Other/R, Acid Fast Stain/U COMMENTS: CLOSTRIDIUM FINDINGS IN ADDITION TO S. AUREUS: Verbal to DR. SHELL by [id number] at 1411 on 10/15/15. Results read back [...] at Main Lab DEPARTMENT OF PATHOLOGY, [address] [place] [address] Vinayak Yanez M.D. Director [facility] # [id number] Patient: PRICE GUARDADO [id number] (Continued) Specimen: [id number] Collected: 10/13/15-1639 Received: 10/13/15 (Continued) Procedure Result Reported Site Acid Fast Stain - Direct Final (continued) 10/14/15- 817 Due to limited sensitivity of the smear, results should be used as an adjunct in evaluating the patient's status and cultural examination is highly recommended for diagnosis. * ML - MAIN LAB ([facility]) . END OF REPORT * ML=Testing performed at Main Lab DEPARTMENT OF PATHOLOGY, [address] [place] [address] Vinayak Yanez M.D. Director [facility] # [id number] 35 SEE RESULT BELOW Name: PRICE GUARDADO : [address]: Jessie Lazar MD Acct: [id number] Unit: [id number] AGE: 60 Location: [facility] Re10/13/15 SEX: M Status: ADM IN SPEC: [id number] GABO: 10/13/15-1640 [facility] DR: Jessie Lazar MD REQ: [id number] RECD: 10/13/15 STATUS: RES OTHR DR: Gabbie Shell MD _ SOURCE: WOUND SPDESC:KNEE LEFT ORDERED: Anaerobic Cult/R, MRSA/SA SSTI/R, Culture Stain/R, Fungal - Other /R, Acid Fast Stain/U COMMENTS: Verbal to GEMINI CHAWLA by [id number] at 2020 on 10/13/15. Results read back [...] at Main Lab DEPARTMENT OF PATHOLOGY, [address] [place] [address] Vinayak Yanez M.D. Director [facility] # [id number] Patient: PRICE GUARDADO [id number] (Continued) Specimen: [id number] Collected: 10/13/15 Received: 10/13/15 (Continued) Procedure Result Reported Site Acid Fast Stain - Direct Final (continued) 10/14/15809 Due to limited sensitivity of the smear, results should be used as an adjunct in evaluating the patient's status and cultural examination is highly recommended for diagnosis. * ML - MAIN LAB ([facility]) . END OF REPORT * ML=Testing performed at Main Lab DEPARTMENT OF PATHOLOGY, [address] [place] [address] Vinayak Yanez M.D. Director [facility] # [id number] 36 SEE RESULT BELOW Name: PRICE GUARDADO : [address]: Jessie Lazar MD Acct: [id number] Unit: [id number] AGE: 60 Location: [facility] [id number] Re10/13/15 Dis: 10/19/15 SEX: M Status: DIS IN SPEC: [id number] GABO: 10/13/15-[address]: Jessie Lazar MD REQ: [id number] RECD: 10/13/15 STATUS: DOLORES CARLOS DR: Gabbie Shell MD _ SOURCE: WOUND SPDESC:KNEE LEFT ORDERED: Anaerobic Cult/R, MRSA/SA SSTI/R, Culture Stain/R, Fungal - Other /R, Acid Fast Stain/U COMMENTS: Verbal to GEMINI CHAWLA by [id number] at 2020 on 10/13/15. Results read back accurately. CLOSTRIDIUM FINDINGS IN ADDITION TO S. AUREUS: Verbal to DR. SHELL by [id number] at 1411 on 10/15/15. Results read back [...] [facility] DEPARTMENT OF PATHOLOGY, [address] [place] [address] Vinayak Yanez M.D. Director [facility] # [id number] Patient: PRICE GUARDADO [id number] (Continued) Specimen: [id number] Collected: 10/13/15-1639 Received: 10/13/15 (Continued) Procedure Result [...] These antibiotics are not available in the [facility] Formulary Contact the Microbiology Department for any additional antibiotic reporting. Fungal Cult - Other Sources Final 11/14/15- 1427 ML Fungal Culture No Growth of Mycotic Organisms 4 weeks Acid Fast Stain - Direct Final 10/14/15- 0810 ML CONTINUED ON NEXT PAGE * ML=Testing performed at Main Lab DEPARTMENT OF PATHOLOGY, [address] [place] [address] Vinayak Yanez M.D. Director [facility] # [id number] Patient: PRICE GUARDADO [id number] (Continued) Specimen: [id number] Collected: 10/13/15-1639 Received: 10/13/15 (Continued) Procedure Result Reported Site Acid Fast Stain - Direct Final (continued) 10/14/15809 AFB Smear Result No Acid Fast Bacillus Present (Negative) Preparation By Direct Smear Due to limited sensitivity of the smear, results should be used as an adjunct in evaluating the patient's status and cultural examination is highly recommended for diagnosis. * ML - MAIN LAB ([facility]) . END OF REPORT * ML=Testing performed at Main Lab DEPARTMENT OF PATHOLOGY, [address], [place], [place] [address] Vinayak Yanez M.D. Director [facility] # [id number] 37 SOURCE: KNEE, KNEE WOUND SWAB MYCOBACTERIAL CULTURE FINAL No growth after 60 days of incubation. Test Performed by: [facility] [place] [address] Sdc Teacher: Cam Isidro II, M.D., Ph.D. 38 SHAD MATTHEWS to be notified Sound Art Instructor: [id number] JERMAN BRANHAM 39 Reference Range and Interpretation: TnI (ng/mL) Interpretation Less Than 0.03 ng/mL Not supportive of diagnosis of DE 0.03 - 0.50 ng/mL Indeterminate: suggest serial studies if clinically indicated. Greater than 0.5 ng/mL Consistent with diagnosis of DE 40 Comment: L knee, second specimen in EDTA tube 41 Red 42 Differential performed on concentrated smear. 43 Acute inflammation. Recommend correlation with microbiology culture studies. Reviewed by Abby Ellis MD 44 Reference Range and Interpretation: TnI (ng/mL) Interpretation Less Than 0.03 ng/mL Not supportive of diagnosis of DE 0.03 - 0.50 ng/mL Indeterminate: suggest serial studies if clinically indicated. Greater than 0.5 ng/mL Consistent with diagnosis of DE 45 Therapeutic target for the treatment of diabetes Mellitus patients is <7% HBA1C, and in selective patients <6.0%.Please refer to [place] [employer] Diabetic care guidelines for further information. 46 SEE RESULT BELOW Name: PRICE GUARDADO : [address]: Jessie Lazar MD Acct: [id number] Unit: [id number] AGE: 60 Location: [place] [address] Re10/13/15 SEX: M Status: ADM IN SPEC: [id number] GABO: 10/13/15 [facility] DR: Jackie Dockery MD REQ: [id number] RECD: 10/13/15 STATUS: DOLORES CARLOS DR: Gabbie Shell MD _ SOURCE: BLOOD,VENO SPDES: ORDERED: Blood Cult Procedure Result Reported Site Aerobic Culture Bottle Final 10/18/15934 ML No Growth Day 5 Anaerobic Culture Bottle Final 10/18/15934 ML No Growth Day 5 * ML - MAIN LAB (PSC1) . END OF REPORT * ML=Testing performed at Main Lab DEPARTMENT OF PATHOLOGY, [address] [place] [address] Vinayak Yanez M.D. Director [facility] # [id number] 47 SEE RESULT BELOW Name: DEBBYPRICE : [address]: Jessie Lazar MD Acct: [id number] Unit: [id number] AGE: 60 Location: [facility] 338-01 Re10/13/15 SEX: M Status: ADM IN SPEC: [id number] GABO: 10/13/15 [facility] DR: Jackie Dockery MD REQ: [id number] RECD: 10/13/15 STATUS: DOLORES CARLOS DR: Gabbie Shell MD _ SOURCE: ANNELISE TORRES SPDESC: ORDERED: BF Cult Bottles Procedure Result Reported Site BF Aerobic Culture Bottle Final 10/18/15- 0434 ML No Growth Day 5 BF Anaerobic Culture Bottle Final 10/18/15- 0434 ML No Growth Day 5 * ML - [facility] ([facility]) . END OF REPORT * ML=Testing performed at Main Lab DEPARTMENT OF PATHOLOGY, [address] [place] [address] Vinayak Yanez M.D. Director [facility] # [id number] 48 Acute inflammation. Recommend correlation with microbiology culture studies. Reviewed by Abby Ellis MD 49 REFERENCE VALUE Not Applicable 50 Test Performed by: [place] [address] Sdc Teacher: Cam Isidro II, M.D., Ph.D. 51 REFERENCE VALUE Not Applicable 52 Test Performed by: [place] [address] Sdc Teacher: Cam Isidro II, M.D., Ph.D. 53 Because [...] 55 SEE RESULT BELOW Name: PRICE GUARDADO : [address]: Jessie Lazar MD Acct: [id number] Unit: [id number] AGE: 60 Location: [facility] 338-01 Re10/13/15 SEX: M Status: ADM IN SPEC: [id number] GABO: 10/13/15 [facility] DR: Jackie Dockery MD REQ: [id number] RECD: 10/13/153 STATUS: COMP OTHR DR: Gabbie Shell MD _ SOURCE: MISC SOURC SPDESC:KNEE LEFT ORDERED: Culture Stain COMMENTS: Comment: Left knee laceration swab CORRECTED RESULT: Verbal to [id number] by [id number] at 0822 on 10/13/15. Results read back accurately. CLOSTRIDIUM FINDINGS IN ADDITION TO S. AUREUS: Verbal to DR. SHELL by [id number] at 1411 on 10/15/15. Results read back accurately. Procedure Result Reported Site Wound/Misc Gram Stain Final 10/13/15- 0824 ML 2+ Neutrophils 3+ Gram Positive Cocci [...] at Main Lab DEPARTMENT OF PATHOLOGY, [address] [place] [address] Vinayak Yanez M.D. Director [facility] # [id number] Patient: PRICE GUARDADO [id number] (Continued) Specimen: [id number] Collected: 10/13/15 Received: 10/13/15 (Continued) Procedure Result Reported Site Wound/Misc Culture Final (continued) 10/15/151420 1. STAPHYLOCOCCUS AUREUS M.I.C. RX --------- ------ [...] These antibiotics are not available in the [facility] Formulary Contact the Microbiology Department for any additional antibiotic reporting. * ML - MAIN LAB (PSC1) . END OF REPORT * ML=Testing performed at Main Lab DEPARTMENT OF PATHOLOGY, [address] [place] [address] Vinayak Yanez M.D. Director [facility] # [id number] 56 RESULTS VERIFIED BY REPEAT ANALYSIS 57 [...] 0.06 ng/mL Not supportive of diagnosis of DE 0.06 - 0.50 ng/mL Indeterminate: suggest serial studies if clinically indicated. Greater than 0.5 ng/mL Consistent with diagnosis of DE 64 The detection limit for Ethanol is 10.0 mg/dl . Values less than 10.0 mg/dl cannot be accurately measured. 65 RUN DATE: 11/12/12 [facility] LAB LIVE PAGE 1 RUN TIME: [address] [facility], [place], [place] [address] Specimen Inquiry Name: PRCIE GUARDADO : [address]: Eliot Valiente MD Acct: [id number] Unit: [id number] AGE: 57 Location: ENDO Re11/11/12 SEX: M Status: REG REF SPEC: [id number] GABO: 11/11/12- SUBM DR: Eliot Valiente MD REQ: [id number] RECD: 11/11/12 STATUS: DARIANA CARLOS DR: Doroteo [...] at Main Lab DEPARTMENT OF PATHOLOGY, [address] [place] [address] Vinayak Yanez M.D. Director [facility] Permit #[id number] 66 results sun'd and triaged provider 67 [...] change was based on recommendations from the [place] [employer]. 74 A metabolite of Naproxen, O-desmethylnaproxen, has been shown to interfere with the Jendrassik-Tarlton method for measuring total bilirubin. Samples from [...] Procedures Date CPT Code Description Status 12/23/2017 90955 Finger Or Heel Stick Completed 06/19/2017 27093 Finger Or Heel Stick Completed 04/16/2017 53098 Finger Or Heel Stick Completed 03/30/2017 Diabetic Retinal Eye Exam Completed 07/25/2016 65758 Finger Or Heel Stick Completed 04/19/2016 22848 Makenzie-Noninvasive physiologic studies of upper or lower Completed extremity 09/08/2015 68936 Finger Or Heel Stick Completed 07/21/2013 44932 Finger Or Heel Stick Completed 03/10/2013 56437 Finger Or Heel Stick Completed 12/02/2012 33078 Finger Or Heel Stick Completed 11/18/2012 77795 Finger Or Heel Stick Completed 11/11/2012 Colonoscopy Completed 11/04/2012 40976 Finger Or Heel Stick Completed 10/02/2012 42750 Finger Or Heel Stick Completed Encounters Type Date Location Provider CPT E/M Dx Office Visit 04/28/2018 3:15p Main Office Cas Robert 77587 E11.65 I73.9 Office Visit 02/22/2018 11:20a Main Office Gabbie Shell M.D. 34715 R19.7 F33.0 I70.213 G40.89 E11.65 Z12.11 Office Visit 12/23/2017 12:00p Main Office Gabbie Shell M.D. 60405 E11.65 G25.0 E78.2 Z12.11 Office Visit 08/20/2017 1:20p [facility] Gabbie Shell M.D. 27031 E11.65 E78.2 F33.0 G25.0 Office Visit 06/19/2017 10:40a [facility] Gabbie Shell M.D. 81854 E11.65 E78.2 F33.0 I70.213 G25.0 G40.89 M25.511 Office Visit 04/16/2017 1:30p Main Office Gabbie Shell M.D. 48507 E11.65 E78.2 F33.0 I70.213 Office Visit 01/15/2017 2:40p Main Office Gabbie Shell M.D. 46728 E11.65 E78.2 R11.10 F33.0 Office Visit 11/27/2016 1:00p [facility] Gabbie Shell M.D. 61439 E11.65 E78.2 F33.0 R11.10 R19.7 G25.0 Office Visit 07/25/2016 1:40p [facility] Gabbie Shell M.D. 66544 E11.65 E78.2 I70.213 R19.7 Office Visit 06/19/2016 10:00a Main Office Heidi LaytonImelda velez-Arcenio 59394 M79.671 R23.8 Office Visit 05/03/2016 5:00p Main Office Gabbie Shell M.D. 27817 E11.65 R11.2 Office Visit 04/14/2016 9:00a Main Office Katharina GossImelda cali-C 17846 E11.65 R53.83 M79.604 M79.605 R11.2 E78.1 Office Visit 01/17/2016 1:40p Main Office Gabbie Shell M.D. 63885 E11.65 E78.2 Z71.6 F17.210 Office Visit 12/08/2015 5:00p Main Office Gabbie Shell M.D. 16361 E11.65 E78.2 Office Visit 09/08/2015 5:20p Main Office Gabbie Shell M.D. 04402 E11.65 R15.2 Office Visit 07/07/2015 6:40p Main Office Gabbie Shell M.D. 90354 E11.65 E78.2 R15.2 Office Visit 05/05/2015 8:00p Main Office Gabbie Shell M.D. 11455 250.82 272.2 787.63 Office Visit 01/11/2015 10:10a Main Office Gabbie Shell M.D. 59665 784.7 787.63 250.00 Office Visit 01/06/2015 5:00p Main Office Gabbie Gabrielle Shell 83750 250.82 272.2 791.0 272.1 Office Visit 10/28/2014 7:30p Main Office Gabbie ShellGabrielle 55845 250.82 272.2 Office Visit 10/05/2014 10:30a Main Office Katharina Guadarrama Afnp-C 24272 250.82 787.91 250.00 Office Visit 07/21/2013 1:00p Main Office Heidi Abdalla Afnp-C 05466 250.00 333.1 272.2 Office Visit 03/10/2013 1:00p Main Office Heidi Abdalla Afnp-C 11999 250.00 729.5 Office Visit 12/02/2012 1:15p Main Office Heidi Abdalla Afnp-C 99706 250.00 Office Visit 11/18/2012 12:00p Main Office Heidi Abdalla Afnp-C 75982 250.00 Office Visit 11/04/2012 1:00p Main Office Heidi Abdalla Afnp-C 49688 250.00 682.3 Office Visit 10/02/2012 1:15p Main Office Heidi Abdalla Afnp-C 23031 250.02 788.34 Office Visit 09/02/2012 1:15p Main Office Heidi Abdalla Afnp-C 36871 250.02 Office Visit 05/02/2012 10:00a Main Office Yogesh Hutton M.D. 97215 682.3 250.00 Office Visit 05/07/2011 11:00a Main Office Doroteo Willis M.D. 93842 782.1 250.00 Office Visit 03/02/2011 11:20a Main Office Doroteo Willis M.D. 81841 723.1 724.5 Office Visit 02/21/2011 1:20p Main Office Doroteo Willis M.D. 63937 723.1 724.5 955.2 368.2 Office Visit 01/12/2011 9:40a Main Office Doroteo Willis M.D. 31932 311 250.00 780.79 Office Visit 04/06/2010 10:00a Main Office Doroteo Willis M.D. 83152 311 300.00 Office Visit 03/10/2010 11:20a Main Office Doroteo Willis M.D. 74475 311 Office Visit 01/25/2010 1:20p Main Office Doroteo Willis M.D. 32154 250.00 434.91 Office Visit 06/20/2009 1:00p Main Office Doroteo Willis M.D. 13254 311 434.91 Office Visit 04/25/2009 9:40a Main Office Doroteo Willis M.D. 08724 311 Office Visit 03/18/2009 11:00a Main Office Doroteo Willis M.D. 59325 523.01 Office Visit 02/25/2009 11:00a Main Office Doroteo Willis M.D. 99605 250.00 Office Visit 02/04/2009 9:40a Main Office Doroteo Willis M.D. 53568 V77.1 V77.0 V77.91 V78.1 250.00 305.1 Plan of Care Future Appointment(s):08/25/2018 12:20 pm - Gabbie Shell M.D. at Main [facility] - Doroteo Mackenzie, MDM86.172 Other acute osteomyelitis, left ankle and footE11.65 Type 2 diabetes mellitus with hyperglycemiaNew Labs:Hemoglobin A1c (Fma)I73.9 Peripheral vascular disease, unspecifiedAllComments:~B_~U_ Medication Management~b_~u_ Patient Understands medications he's taking? Yes No Are there Barriers to Adherence? Yes No Has the patient been asked about herbal supplements and therapies, and OTC meds? Yes No
--- OUTSIDE RECORDS SUMMARY | 2018-07-01 13:11 | XMS REPORT ---
:1955 External Reference #:[id number] Author Organization [facility] Address [address] [address] [place] [address] Phone [phone] Care Team Providers Name Role Phone Gabbie Shell MD Primary Care Physician Unavailable Payers Type Date Identification Numbers Payment Provider Subscriber Commercial Effective: Policy Number: [id number] [facility] Maryam Guardado 2010 PayID: [id number] [address] [place] [address] Medigap Part B Expires: 2018 Policy Number: Medicare Price Guardado [id number] PayID: [id number] [address] [place] [address] Medigap Part B Expires: 2018 Policy Number: Medicare Price Guardado [id number] PayID: [id number] [address] [place] [address] Medigap Part B Expires: 2018 Policy Number: [employer] Maryam Guevara [id number] Debby Group Number: [id number] [address] PayID: [id number] [place] [address] Workers Compensation Onset: 2015 Policy Number: Jorden Guardado [id number] Group Number: [id number] [address] PayID: [id number] MAMADOU Pardo [address] Problems Date Description Provider Status Onset: 04/22/2018 [...] 05/05/ Active Capsules 250mg 30caps Take 1 [facility] 2017 capsule Fernando qid Oxycodone HCL 04/24/ Active Tablets 5mg 15tabs 1 tab [facility] 2017 every 4-6 Fernando, hours [...] Unknown 0000 Rec 8 hours through briova Clindamycin HCL 05/02/ Hx Capsules 300mg 30caps Take 1 [facility] 2017 - Capsule Fernando, 05/07/ By Mouth 2017 Three Times Daily Clindamycin HCL 11/01/ Hx Capsules 300mg 90caps 1 tabs by Jamar Jordan 2015 - mouth 3 [place]en, 01/03/ times a M.D. 2015 day Lamictal 05/13/ Hx Tablets 25mg Paul SAdrianna 2012 - Dori, 05/13/ M.D. 2012 Lamictal 05/13/ Hx Tablets 100mg 90tabs 1 and 1/2 Paul Macario 2012 - qam and Dori, 10/01 q M.Julian 2016 for 2 wks then 1 and 2 qam and 1 qhs for 2 wks then 1 and 1/2 bid Lantus Solostar // Hx Solution 100Unit/ML 5units inject 50 Unknown 0000 - units sc in 2017 morning, inject 7 units sc at hs Bupropion HCL / Hx Tablets ER 300mg 1 by Unknown ER (XL) 0000 - 24HR mouth every day 2017 Lamictal / Hx (?) 1 po Unknown [...] 0000 - Rec every 8 0217/ hours 2015 Percocet 00/ Hx Tablets 5-325mg 1 by Unknown 0000 - mouth every 2018 hours as needed pain Bentyl /00/ Hx Capsules 10mg take 1 Unknown 0000 - tablet by mouth 2015 with every meal Tramadol HCL 00/ Hx Tablets 50mg 1 tablets Unknown 0000 - every 6 04/06/ hours as 2016 needed Levofloxacin 00/ Hx Tablets 750mg Take 1 Unknown 0000 - Tablet By Mouth 2017 Every Day Clindamycin HCL 00/00/ Hx Capsules 300mg Take 1 Unknown 0000 - Capsule 04/21/ By Mouth 2018 Three Times Daily Metronidazole /00/ Hx Tablets 500mg Take 1 Unknown 0000 - Tablet By Mouth 2017 Three Times Daily Vital Signs Date Vital Result Comment 06/06/2018 Height 65 inches 5'5" Weight 180.00 [...] Attend Dr: Jose Juan King MD Acct: [id number] Unit: [id number] AGE: 62 Location: [place] Re04/24/18 SEX: M Status: [facility] SPEC: [id number] GABO: 04/24/18- [facility] DR: Jose Juan King MD REQ: [id number] RECD: 04/24/18-3950 STATUS: SOUT _ ORDERED: Decal, LEVEL 4 [...] margin blue and plantar margin black, and personal financial representative sections are submitted in cassettes A and B to include bone following decalcification in cassette A. Signed by and Reported on: Abby Ellis MD 04/29/18 1052 END OF REPORT DEPARTMENT OF PATHOLOGY, [address] [place] [address] Vinayak Yanez M.D. Director [facility] # [id number] 2 Relay Mechanic: [id number] 3 Relay Mechanic: [id number] 4 Relay Mechanic: [id number] 5 Relay Mechanic: [id number] 6 Because ethnic data is not always [...] (or dialysis) 13 Acute inflammation: >10.00 14 Relay Mechanic: [id number] FERNANDO PETTIT 15 SEE RESULT BELOW Name: PRICE GUARDADO : [address]: Jessie Lazar MD Acct: [id number] Unit: [id number] AGE: 60 Location: [facility] Re10/13/15 SEX: M Status: REG SDC SPEC: [id number] GABO: 10/13/15-[address] [facility] [address]: Jessie Lazar MD REQ: [id number] RECD: 10/13/15703 STATUS: RES OTHR DR: Gabbie Shell MD [...] Direct PENDING * ML - MAIN LAB ([facility]) . END OF REPORT * ML=Testing performed at Main Lab DEPARTMENT OF PATHOLOGY, [address] [place] [address] Vinayak Yanez M.D. Director [facility] # [id number] 16 SEE RESULT BELOW Name: PRICE GUARDADO : [address]: Jessie Lazar MD Acct: [id number] Unit: [id number] AGE: 60 Location: [facility] 338-01 Re10/13/15 Dis: 10/19/15 SEX: M Status: DIS IN SPEC: [id number] GABO: 10/13/15-[address]: Jessie Lazar MD REQ: [id number] RECD: 10/13/15 STATUS: RES OTHR DR: Gabbie Shell MD _ SOURCE: WOUND SPDESC:KNEE LEFT ORDERED: Tissue Cult/GS/R, Fungal - Other/R, Acid Fast Stain/U COMMENTS: CLOSTRIDIUM FINDINGS IN ADDITION TO S. AUREUS: Verbal to DR. SHELL by [id number] at 1411 on 10/15/15. Results read back [...] performed at Main Lab DEPARTMENT OF PATHOLOGY, [address] [place] [address] Vinayak Yanez M.D. Director [facility] # [id number] Patient: PRICE GUARDADO [id number] (Continued) Specimen: [id number] Collected: 10/13/15 Received: 10/13/15-831 (Continued) Procedure Result Reported Site Acid Fast Stain - Direct Final (continued) 10/14/15- 817 Due to limited sensitivity of the smear, results should be used as an adjunct in evaluating the patient's status and cultural examination is highly recommended for diagnosis. * ML - MAIN LAB ([facility]) . END OF REPORT * ML=Testing performed at Main Lab DEPARTMENT OF PATHOLOGY, [address] [place] [address] Vinayak Yanez M.D. Director [facility] # [id number] 17 SEE RESULT BELOW Name: PRICE GUARDADO : [address]: Jessie Laazr MD Acct: [id number] Unit: [id number] AGE: 60 Location: [facility] 338-01 Re10/13/15 SEX: M Status: ADM IN SPEC: [id number] GABO: 10/13/15-[address]: Jessie Lazar MD REQ: [id number] RECD: 10/13/15 STATUS: RES OTHR DR: Gabbie Shell MD _ SOURCE: WOUND SPDESC:KNEE LEFT ORDERED: Anaerobic Cult/R, MRSA/SA SSTI/R, Culture Stain/R, Fungal - Other /R, Acid Fast Stain/U COMMENTS: Verbal to GEMINI CHAWLA by [id number] at 2020 on 10/13/15. Results read back [...] performed at Main Lab DEPARTMENT OF PATHOLOGY, [address] [place] [address] Vinayak Yanez M.D. Director [facility] # [id number] Patient: PRICE GUARDADO [id number] (Continued) Specimen: [id number] Collected: 10/13/15 Received: 10/13/15 (Continued) Procedure Result Reported Site Acid Fast Stain - Direct Final (continued) 01/809 Due to limited sensitivity of the smear, results should be used as an adjunct in evaluating the patient's status and cultural examination is highly recommended for diagnosis. * ML - MAIN LAB ([facility]) . END OF REPORT * ML=Testing performed at Main Lab DEPARTMENT OF PATHOLOGY, [address] [place] [address] Vinayak Yanez M.D. Director [facility] # [id number] 18 SEE RESULT BELOW Name: DEBBYPRICE : [address]: Jessie Lazar MD Acct: [id number] Unit: [id number] AGE: 60 Location: [facility] 338-01 Re10/13/15 Dis: 10/19/15 SEX: M Status: DIS IN SPEC: [id number] GABO: 10/13/15-[address] [facility] [address]: Jessie Lazar MD REQ: [id number] RECD: 10/13/15 STATUS: RES OTHR DR: Gabbie Shell MD _ SOURCE: WOUND SPDESC:KNEE LEFT ORDERED: Anaerobic Cult/R, MRSA/SA SSTI/R, Culture Stain/R, Fungal - Other /R, Acid Fast Stain/U COMMENTS: Verbal to GEMINI AMY CHAWLA by [id number] at 2020 on 10/13/15. Results read back accurately. CLOSTRIDIUM FINDINGS IN ADDITION TO S. AUREUS: Verbal to DR. SHELL by [id number] at 1411 on 10/15/15. Results read back [...] performed at Main Lab DEPARTMENT OF PATHOLOGY, [address] [place] [address] Vinayak Yanez M.D. Director [facility] # [id number] Patient: PRICE GUARDADO Arcenio [id number] (Continued) Specimen: [id number] Collected: 10/13/15 Received: 10/13/15 (Continued) Procedure Result [...] These antibiotics are not available in the [facility] Formulary Contact the Microbiology Department for any additional antibiotic reporting. Fungal Cult - Other Sources Preliminary 10/24/15- 1325 ML Fungal Culture No Growth of Mycotic Organisms 1 week Acid Fast Stain - Direct Final 10/14/15- 0810 ML CONTINUED ON NEXT PAGE * ML=Testing performed at Main Lab DEPARTMENT OF PATHOLOGY, [address] [place] [address] Vinayak Yanez M.D. Director [facility] # [id number] Patient: PRICE GUARDADO [id number] (Continued) Specimen: [id number] Collected: 10/13/15-1639 Received: 10/13/15-1754 (Continued) Procedure Result Reported Site Acid Fast Stain - Direct Final (continued) 10/14/15809 AFB Smear Result No Acid Fast Bacillus Present (Negative) Preparation By Direct Smear Due to limited sensitivity of the smear, results should be used as an adjunct in evaluating the patient's status and cultural examination is highly recommended for diagnosis. * ML - MAIN LAB ([facility]) . END OF REPORT * ML=Testing performed at Main Lab DEPARTMENT OF PATHOLOGY, [address] [place] [address] Vinayak Yanez M.D. Director [facility] # [id number] 19 SEE RESULT BELOW Name: PRICE GUARDADO : [address]: Jessie Lazar MD Acct: [id number] Unit: [id number] AGE: 60 Location: SDS Re10/13/15 SEX: M Status: REG SDC SPEC: [id number] GABO: 10/13/15-[address] [facility] [address]: Jessie Lazar MD REQ: [id number] RECD: 10/13/15 STATUS: RES OTHR DR: Gabbie [...] * ML - MAIN LAB ([facility]) . END OF REPORT * ML=Testing performed at Main Lab DEPARTMENT OF PATHOLOGY, [address] [place] [address] Vinayak Yanez M.D. Director [facility] # [id number] 20 SEE RESULT BELOW Name: PRICE GUARDADO : [address]: Jessie Lazar MD Acct: [id number] Unit: [id number] AGE: 60 Location: [facility] 338-01 Re10/13/15 Dis: 10/19/15 SEX: M Status: DIS IN SPEC: [id number] GABO: 10/13/15-[address] [facility] [address]: Jessie Lazar MD REQ: [id number] RECD: 10/13/15382 STATUS: RES OTHR DR: Gabbie Shell MD _ SOURCE: WOUND SPDESC:KNEE LEFT ORDERED: Tissue Cult/GS/R, Fungal - Other/R, Acid Fast Stain/U COMMENTS: CLOSTRIDIUM FINDINGS IN ADDITION TO S. AUREUS: Verbal to DR. SHELL by [id number] at 1411 on 10/15/15. Results read back [...] performed at Main Lab DEPARTMENT OF PATHOLOGY, [address] [place] [address] Vinayak Yanez M.D. Director [facility] # [id number] Patient: PRICE GUARDADO [id number] (Continued) Specimen: [id number] Collected: 10/13/15 Received: 10/13/15 (Continued) Procedure Result Reported Site Acid Fast Stain - Direct Final (continued) 10/14/15817 Due to limited sensitivity of the smear, results should be used as an adjunct in evaluating the patient's status and cultural examination is highly recommended for diagnosis. * ML - MAIN LAB ([facility]) . END OF REPORT * ML=Testing performed at Main Lab DEPARTMENT OF PATHOLOGY, [address] [place] [address] Vinayak Yanez M.D. Director [facility] # [id number] 21 SEE RESULT BELOW Name: PRICE GUARDADO Arcenio : [address]: Jessie Lazar MD Acct: [id number] Unit: [id number] AGE: 60 Location: [place] [address] Re10/13/15 SEX: M Status: ADM IN SPEC: [id number] GABO: 10/13/15-[address] [facility] [address]: Jessie Lazar MD REQ: [id number] RECD: 10/13/15175 STATUS: RES OTHR DR: Gabbie Shell MD _ SOURCE: WOUND SPDESC:KNEE LEFT ORDERED: Anaerobic Cult/R, MRSA/SA SSTI/R, Culture Stain/R, Fungal - Other /R, Acid Fast Stain/U COMMENTS: Verbal to GEMINI CHAWLA by [id number] at 2020 on 10/13/15. Results read back [...] performed at Main Lab DEPARTMENT OF PATHOLOGY, [address] [place] [address] Vinayak Yanez M.D. Director [facility] # [id number] Patient: PRICE GUARDADO [id number] (Continued) Specimen: [id number] Collected: 10/13/15-1639 Received: 10/13/15-1753 (Continued) Procedure Result Reported Site Acid Fast Stain - Direct Final (continued) 10/14/15809 Due to limited sensitivity of the smear, results should be used as an adjunct in evaluating the patient's status and cultural examination is highly recommended for diagnosis. * ML - MAIN LAB ([facility]) . END OF REPORT * ML=Testing performed at Main Lab DEPARTMENT OF PATHOLOGY, [address] [place] [address] Vinayak Yanez M.D. Director [facility] # [id number] 22 SEE RESULT BELOW Name: PRICE GUARDADO : [address]: Jessie Lazar MD Acct: [id number] Unit: [id number] AGE: 60 Location: [facility] 338-01 Re10/13/15 Dis: 10/19/15 SEX: M Status: DIS IN SPEC: [id number] GABO: 10/13/15-[address] [facility] [address]: Jessie Lazar MD REQ: [id number] RECD: 10/13/15 STATUS: RES OTHR DR: Gabbie Shell MD _ SOURCE: WOUND SPDESC:KNEE LEFT ORDERED: Anaerobic Cult/R, MRSA/SA SSTI/R, Culture Stain/R, Fungal - Other /R, Acid Fast Stain/U COMMENTS: Verbal to GEMINI CHAWLA by [id number] at 2020 on 10/13/15. Results read back accurately. CLOSTRIDIUM FINDINGS IN ADDITION TO S. AUREUS: Verbal to DR. SHELL by [id number] at 1411 on 10/15/15. Results read back [...] performed at Main Lab DEPARTMENT OF PATHOLOGY, [address] [place] [address] Vinayak Yanez M.D. Director [facility] # [id number] Patient: PRICE GUARDADO [id number] (Continued) Specimen: [id number] Collected: 01/14/16-1640 Received: 10/13/15-1753 (Continued) Procedure Result Reported Site Wound/Misc Culture Final (continued) 10/15/15- 08 Organism 1 STAPHYLOCOCCUS AUREUS Quantity 3+ [...] These antibiotics are not available in the [facility] Formulary Contact the Microbiology Department for any additional antibiotic reporting. Fungal Cult - Other Sources Preliminary 10/31/15- 1443 ML Fungal Culture No Growth of Mycotic Organisms 2 weeks Acid Fast Stain - Direct Final 10/14/15- 0810 ML CONTINUED ON NEXT PAGE * ML=Testing performed at Main Lab DEPARTMENT OF PATHOLOGY, [address] [place] [address] Vinayak Yanez M.D. Director [facility] # [id number] Patient: PRICE GUARDADO [id number] (Continued) Specimen: [id number] Collected: 10/13/15 Received: 10/13/15 (Continued) Procedure Result Reported Site Acid Fast Stain - Direct Final (continued) 10/14/15809 AFB Smear Result No Acid Fast Bacillus Present (Negative) Preparation By Direct Smear Due to limited sensitivity of the smear, results should be used as an adjunct in evaluating the patient's status and cultural examination is highly recommended for diagnosis. * ML - MAIN LAB ([facility]) . END OF REPORT * ML=Testing performed at Main Lab DEPARTMENT OF PATHOLOGY, [address] [place] [address] Vinayak Yanez M.D. Director [facility] # [id number] 23 SEE RESULT BELOW Name: PRICE GUARDADO : [address]: Jessie Lazar MD Acct: [id number] Unit: [id number] AGE: 60 Location: [facility] Re10/13/15 SEX: M Status: REG SDC SPEC: [id number] GABO: 10/13/15-[address] [facility] [address]: Jessie Lazar MD REQ: [id number] RECD: 10/13/151754 STATUS: RES OTHR DR: Gabbie [...] performed at Main Lab DEPARTMENT OF PATHOLOGY, [address] [place] [address] Vinayak Yanez M.D. Director [facility] # [id number] 24 SEE RESULT BELOW Name: PRICE GUARDADO : [address]: Jessie Lazar MD Acct: [id number] Unit: [id number] AGE: 60 Location: [facility] 338-01 Re10/13/15 Dis: 10/19/15 SEX: M Status: DIS IN SPEC: [id number] GABO: 10/13/15-[address] [facility] [address]: Jessie Lazar MD REQ: [id number] RECD: 10/13/15 STATUS: RES OTHR DR: Gabbie Shell MD _ SOURCE: WOUND SPDESC:KNEE LEFT ORDERED: Tissue Cult/GS/R, Fungal - Other/R, Acid Fast Stain/U COMMENTS: CLOSTRIDIUM FINDINGS IN ADDITION TO S. AUREUS: Verbal to DR. SHELL by [id number] at 1411 on 10/15/15. Results read back [...] ON NEXT PAGE * ML=Testing performed at [facility] DEPARTMENT OF PATHOLOGY, [address] [place] [address] Vinayak Yanez M.D. Director [facility] # [id number] Patient: PRICE GUARDADO [id number] (Continued) Specimen: [id number] Collected: 10/13/15-1639 Received: 10/13/15 (Continued) Procedure Result Reported Site Acid Fast Stain - Direct Final (continued) 10/14/15- 817 Due to limited sensitivity of the smear, results should be used as an adjunct in evaluating the patient's status and cultural examination is highly recommended for diagnosis. * ML - MAIN LAB ([facility]) . END OF REPORT * ML=Testing performed at Main Lab DEPARTMENT OF PATHOLOGY, [address] [place] [address] Vinyaak Yanez M.D. Director [facility] # [id number] 25 SEE RESULT BELOW Name: PRICE GUARDADO : [address]: Jessie Lazar MD Acct: [id number] Unit: [id number] AGE: 60 Location: [address] Re10/13/15 SEX: M Status: ADM IN SPEC: [id number] GABO: 10/13/15-[address] [facility] [address]: Jessie Lazar MD REQ: [id number] RECD: 10/13/15 STATUS: RES OTHR DR: Gabbie Shell MD _ SOURCE: WOUND SPDESC:KNEE LEFT ORDERED: Anaerobic Cult/R, MRSA/SA SSTI/R, Culture Stain/R, Fungal - Other /R, Acid Fast Stain/U COMMENTS: Verbal to GEMINI CHAWLA by [id number] at 2020 on 10/13/15. Results read back [...] performed at Main Lab DEPARTMENT OF PATHOLOGY, [address] [place] [address] Vinayak Yanez M.D. Director [facility] # [id number] Patient: PRICE GUARDADO [id number] (Continued) Specimen: [id number] Collected: 10/13/15 Received: 10/13/15175 (Continued) Procedure Result Reported Site Acid Fast Stain - Direct Final (continued) 10/14/15- 08 Due to limited sensitivity of the smear, results should be used as an adjunct in evaluating the patient's status and cultural examination is highly recommended for diagnosis. * ML - MAIN LAB ([facility]) . END OF REPORT * ML=Testing performed at Main Lab DEPARTMENT OF PATHOLOGY, [address] [place] [address] Vinayak Yanez M.D. Director [facility] # [id number] 26 SEE RESULT BELOW Name: PRICE GUARDADO : [address]: Jessie Lazar MD Acct: [id number] Unit: [id number] AGE: 60 Location: [facility] 338-01 Re10/13/15 Dis: 10/19/15 SEX: M Status: DIS IN SPEC: [id number] GABO: 10/13/15-[address]: Jessie Lazar MD REQ: [id number] RECD: 10/13/15 STATUS: RES OTHR DR: Gabbie Shell MD _ SOURCE: WOUND SPDESC:KNEE LEFT ORDERED: Anaerobic Cult/R, MRSA/SA SSTI/R, Culture Stain/R, Fungal - Other /R, Acid Fast Stain/U COMMENTS: Verbal to GEMINI CHAWLA by [id number] at 2020 on 10/13/15. Results read back accurately. CLOSTRIDIUM FINDINGS IN ADDITION TO S. AUREUS: Verbal to DR. SHELL by [id number] at 1411 on 10/15/15. Results read back [...] performed at Main Lab DEPARTMENT OF PATHOLOGY, [address] [place] [address] Vinayak Yanez M.D. Director [facility] # [id number] Patient: PRICE GUARDADO [id number] (Continued) Specimen: [id number] Collected: 10/13/15 Received: 10/13/15 (Continued) Procedure Result [...] These antibiotics are not available in the [facility] Formulary Contact the Microbiology Department for any additional antibiotic reporting. Fungal Cult - Other Sources Preliminary 11/07/15- 1229 ML Fungal Culture No Growth of Mycotic Organisms 3 weeks Acid Fast Stain - Direct Final 10/14/15- 0810 ML CONTINUED ON NEXT PAGE * ML=Testing performed at Main Lab DEPARTMENT OF PATHOLOGY, [address] [place] [address] Vinayak Yanez M.D. Director [facility] # [id number] Patient: PRICE GUARDADO [id number] (Continued) Specimen: [id number] Collected: 10/13/15-1640 Received: 10/13/15 (Continued) Procedure Result Reported Site Acid Fast Stain - Direct Final (continued) 10/14/15809 AFB Smear Result No Acid Fast Bacillus Present (Negative) Preparation By Direct Smear Due to limited sensitivity of the smear, results should be used as an adjunct in evaluating the patient's status and cultural examination is highly recommended for diagnosis. * ML - MAIN LAB ([facility]) . END OF REPORT * ML=Testing performed at Main Lab DEPARTMENT OF PATHOLOGY, [address] [place] [address] Vinayak Yanez M.D. Director [facility] # [id number] 27 SEE RESULT BELOW Name: PRICE GUARDADO : [address]: Jessie Lazar MD Acct: [id number] Unit: [id number] AGE: 60 Location: SDS Re10/13/15 SEX: M Status: REG SDC SPEC: [id number] GABO: 10/13/15-[address] [facility] [address]: Jessie Lazar MD REQ: [id number] RECD: 10/13/15 STATUS: RES OTHR DR: Gabbie [...] performed at Main Lab DEPARTMENT OF PATHOLOGY, [address] [place] [address] Vinayak Yanez M.D. Director [facility] # [id number] 28 SEE RESULT BELOW Name: PRICE GUARDADO : [address]: Jessie Lazar MD Acct: [id number] Unit: [id number] AGE: 60 Location: [facility] 338-01 Re10/13/15 Dis: 10/19/15 SEX: M Status: DIS IN SPEC: [id number] GABO: 10/13/15-[address] [place] [address] DR: Jessie Lazar MD REQ: [id number] RECD: 10/13/15694 STATUS: COMP OTHR DR: Gabbie Shell MD _ SOURCE: WOUND SPDESC:KNEE LEFT ORDERED: Tissue Cult/GS/R, Fungal - Other/R, Acid Fast Stain/U COMMENTS: CLOSTRIDIUM FINDINGS IN ADDITION TO S. AUREUS: Verbal to DR. SHELL by [id number] at 1411 on 10/15/15. Results read back [...] performed at Main Lab DEPARTMENT OF PATHOLOGY, [address] [place] [address] Vinayak Yanez M.D. Director [facility] # [id number] Patient: PRICE GUARDADO [id number] (Continued) Specimen: [id number] Collected: 10/13/15 Received: 10/13/15 (Continued) Procedure Result Reported Site Acid Fast Stain - Direct Final (continued) 10/14/15817 Due to limited sensitivity of the smear, results should be used as an adjunct in evaluating the patient's status and cultural examination is highly recommended for diagnosis. * ML - MAIN LAB ([facility]) . END OF REPORT * ML=Testing performed at Main Lab DEPARTMENT OF PATHOLOGY, [address] [place] [address] Vinayak Yanez M.D. Director [facility] # [id number] 29 SEE RESULT BELOW Name: PRICE GUARDADO : [address]: Jessie Lazar MD Acct: [id number] Unit: [id number] AGE: 60 Location: [place] [address]- Re10/13/15 SEX: M Status: ADM IN SPEC: [id number] GABO: 10/13/15-[address] [facility] [address]: Jessie Lazar MD REQ: [id number] RECD: 10/13/153524 STATUS: RES OTHR DR: Gabbie Shell MD _ SOURCE: WOUND SPDESC:KNEE LEFT ORDERED: Anaerobic Cult/R, MRSA/SA SSTI/R, Culture Stain/R, Fungal - Other /R, Acid Fast Stain/U COMMENTS: Verbal to GEMINI CHAWLA by [id number] at 2020 on 10/13/15. Results read back [...] performed at Main Lab DEPARTMENT OF PATHOLOGY, [address] [place] [address] Vinayak Yanez M.D. Director [facility] # [id number] Patient: PRICE GUARDADO [id number] (Continued) Specimen: [id number] Collected: 10/13/15 Received: 10/13/15 (Continued) Procedure Result Reported Site Acid Fast Stain - Direct Final (continued) 10/14/15809 Due to limited sensitivity of the smear, results should be used as an adjunct in evaluating the patient's status and cultural examination is highly recommended for diagnosis. * ML - MAIN LAB ([facility]) . END OF REPORT * ML=Testing performed at Main Lab DEPARTMENT OF PATHOLOGY, [address] [place] [address] Vinayak Yanez M.D. Director [facility] # [id number] 30 SEE RESULT BELOW Name: PRICE GUARDADO Arcenio : [address]: Jessie Lazar MD Acct: [id number] Unit: [id number] AGE: 60 Location: [place] [address] Re10/13/15 Dis: 10/19/15 SEX: M Status: DIS IN SPEC: [id number] GABO: 10/13/15-[address] [facility] [address]: Jessie Lazar MD REQ: [id number] RECD: 10/13/15 STATUS: COMP [facility] DR: Gabbie Shell MD _ SOURCE: WOUND SPDESC:KNEE LEFT ORDERED: Anaerobic Cult/R, MRSA/SA SSTI/R, Culture Stain/R, Fungal - Other /R, Acid Fast Stain/U COMMENTS: Verbal to GEMINI CHAWLA by [id number] at 2020 on 10/13/15. Results read back accurately. CLOSTRIDIUM FINDINGS IN ADDITION TO S. AUREUS: Verbal to DR. SHELL by [id number] at 1411 on 10/15/15. Results read back [...] performed at Main Lab DEPARTMENT OF PATHOLOGY, [address] [place] [address] Vinayak Yanez M.D. Director [facility] # [id number] Patient: PRICE GUARDADO [id number] (Continued) Specimen: [id number] Collected: 10/13/15 Received: 10/13/15 (Continued) Procedure Result [...] These antibiotics are not available in the [facility] Formulary Contact the Microbiology Department for any additional antibiotic reporting. Fungal Cult - Other Sources Final 11/14/15- 1427 ML Fungal Culture No Growth of Mycotic Organisms 4 weeks Acid Fast Stain - Direct Final 10/14/15- 08 ML CONTINUED ON NEXT PAGE * ML=Testing performed at Main Lab DEPARTMENT OF PATHOLOGY, [address] [place] [address] Vinayak Yanez M.D. Director [facility] # [id number] Patient: PRICE GUARDADO [id number] (Continued) Specimen: [id number] Collected: 10/13/15 Received: 10/13/15 (Continued) Procedure Result [...] * ML - MAIN LAB ([facility]) . END OF REPORT * ML=Testing performed at Main Lab DEPARTMENT OF PATHOLOGY, [address] [place] [address] Vinayak Yanez M.D. Director [facility] # [id number] SOURCE: KNEE, KNEE WOUND SWAB MYCOBACTERIAL CULTURE FINAL No growth after 60 days of incubation. Test Performed by: [place] [address] Icu Manager: Cam Isidro II, M.D., Ph.D. Procedures Date CPT Code Description Status 05/29/2018 99637 Incision Bone Cortex Foot Completed 05/29/2018 52064 Incision Bone Cortex Foot Completed 05/29/2018 20015 Layer Closure Of Wounds 2.6CM - 7.5CM Completed Neck,Hands,Feet,Genitalia 05/29/2018 03038 Layer Closure Of Wounds 2.6CM - 7.5CM Completed Neck,Hands,Feet,Genitalia 05/29/2018 71011 Debridement Tissue/Muscle/Bone Completed 05/29/2018 20491 Debridement Tissue/Muscle/Bone Completed 04/24/2018 77221 Amputation,Toe;Interphalangeal Joint Completed 04/24/2018 37697 Amputation,Toe;Interphalangeal Joint Completed 04/24/2018 24107 Amputation,Toe;Interphalangeal Joint Completed 04/24/2018 70997 Amputation,Toe;Interphalangeal Joint Completed 04/18/2018 91679 Revascularization,Endovascular W/Atherectomy, Inc Completed Angioplasty 04/18/2018 47739 Revascularization,Endovascular W/Atherectomy, Inc Completed Angioplasty 04/18/2018 33900 Angio Extremity, Bilateral Completed 04/18/2018 30680 Ultrasound Guidance For Vascular Access Completed 04/18/2018 31985 Moderate Sedation Services; Same Phys Intl 15 Mins; PT Completed >=5 Years 04/18/2018 99593 Moderate Sedation Services; Same Phys Each Additional Completed 15 Mins 12/10/2016 67439 ECHO Transthorasic Realtime 2D W Doppler & Color Flow Completed Hosp 12/09/2016 33568 EKG, Interpretation Only Completed 01/10/2016 02746 Treadmill Interp/Report Only Completed 01/10/2016 21923 Stress Test Supervsn W/Out I/R Completed 10/15/2015 03788 Arthroscopy,Knee For Infection,Lavage & Drainage Completed 10/15/2015 31024 Arthroscopy,Knee For Infection,Lavage & Drainage Completed 10/15/2015 12866 Arthroscopy,Knee For Infection,Lavage & Drainage Completed 10/15/2015 61207 Arthroscopy,Knee For Infection,Lavage & Drainage Completed 10/13/2015 63927 Arthroscopy,Knee,Meniscectomy Medial Or Lateral Completed 10/13/2015 82323 Arthroscopy,Knee,Meniscectomy Medial Or Lateral Completed 10/13/2015 50807 Arthroscopy,Knee For Infection,Lavage & Drainage Completed 05/18/2013 91123 EEG Recording Awake & Asleep Completed 03/13/2013 65351 Color Flow Doppler/Interp & Reprt Completed 03/13/2013 25744 Pulse Wave/Continuous-Interp.RPT Completed 03/13/2013 24586 Echocardiography, Transesophageal, Real Time W/Image 2D Completed W/W/O M-M Encounters Type Date Location Provider CPT E/M Dx [facility] 95362 Z89.412 1:40p Infectious Diseases Gabrielle García E11.52 Office Visit 04/22/2018 1:30p [facility] [place] [address] M86.172 C.M.A. Office Visit 04/19/2018 9:33a [facility] [place] [address] Z47.89 C.M.A. Office Visit 04/19/2018 11:31a [facility] [place] [address] L97.513 Assoc,pc Hospitalists E11.52 I73.9 Office Visit 04/18/2018 11:30a [facility] Aldo Lambert, 65897 L97.513 Assoc,pc Hospitalists SAIDA E11.52 I73.9 F32.9 G25.0 Office Visit 04/17/2018 11:30a [facility] Joe Ramírez, 01488 L97.513 Hospitalists Gabrielle E11.52 Office Visit 04/16/2018 1:09p [facility] Steffanie Larsen 90100 I73.9 Hospitalists MARJORIE Bradley E11.51 Office Visit 04/16/2018 9:11a [facility] Vascular Medicine Richardson Mahan, 29578 I70.213 Of Pal Anthony M87.878 Office Visit 04/15/2018 2:11p [facility] SAIDA Rea 08336 M87.078 C.M.A. L03.032 Office Visit 04/15/2018 11:29a [facility], [place] [address] L97.513 Hospitalists E11.9 F32.9 Office Visit 04/15/2018 12:44p [facility] Jamar García, 57020 E11.52 Infectious Diseases Gabrielle Z86.73 Office Visit 12/10/2016 2:49p [facility] [address] G45.9 Office Visit 12/10/2016 3:56p [facility] Tiffanie Hope, 42502 R07.2 Hospitalists MARJORIE R55 E11.9 G45.9 Office Visit 12/09/2016 1:48p [facility] Sae Major, 95765 G45.9 M.DAdrianna Office Visit 12/09/2016 3:55p [facility] Orlin Junior 10894 R55 Hospitalstephan LI M.D. R07.2 E11.9 G45.9 Office Visit 01/10/2016 12:51p [facility] Sadie Rivera, 19712 R07.9 Assoc,pc [employer] Hospitalists N17.9 E11.9 I10 Office Visit 01/09/2016 12:50p [facility], Estefanía Lewis N.P. 51164 R07.9 Hospitalists E11.9 N17.9 I10 Office Visit 11/30/2015 3:20p [facility] Madalyn Jordan 95618 M00.062 Infectious Diseases Gabrielle García Office Visit 11/16/2015 3:20p [facility] Madalyn Jordan 62384 M00.062 Infectious Diseases Gabrielle García B96.7 Office Visit 11/03/2015 2:00p [facility] Madalyn Jordan 24039 M00.062 Infectious Noé García M.D. M00.062 Office Visit 10/19/2015 9:02a [facility] Madalyn Jordan 71049 M00.062 Infectious Diseases Gabrielle García L02.416 Office Visit 10/19/2015 10:02a [facility] [place] [address] M00.062 Assoc, Hospitalists B96.7 E11.8 Office Visit 10/18/2015 8:56a [facility] Madalyn Jordan 32134 M00.062 Infectious Noé García M.D. R19.7 V99.xxxA B96.7 Office Visit 10/18/2015 10:02a [facility] 14610 M00.062 Hospitalists Gabrielle E11.8 B96.7 Office Visit 10/17/2015 10:01a [facility] 48486 M00.062 Hospitalists Gabrielle B96.7 E11.8 Office Visit 10/16/2015 10:00a [facility] 75593 M00.062 Hospitalists Gabrielle B96.7 E11.8 Office Visit 10/15/2015 10:00a [facility] 02415 M00.062 Hospitalists Gabrielle B96.7 E11.8 Office Visit 10/14/2015 9:59a [facility], Nasima Colmenares, 25114 M00.062 Hospitalists D.OAdrianna E11.8 Office Visit 10/13/2015 9:58a [facility] Tiffanie Hope, 30224 M00.062 Assoc, Hospitalists [employer] E11.8 Office Visit 10/13/2015 7:00a [facility] [place] [address] M25.562 C.M.A. M25.462 S81.012A B96.89 Office Visit 07/29/2013 8:30a [facility] [place], 39503 333.1 Services Of [employer] M.D. Office Visit 06/19/2013 11:30a [facility] [place], 36033 437.9 Services Of [employer] M.D. Office Visit 05/12/2013 10:45a [facility] [place], 54109 345.40 Services Of [employer] M.D. 438.89 331.83 Office Visit 03/13/2013 12:53p [facility] Sanchez Warren, 00396 435.9 Services Of [employer] M.D. Office Visit 03/13/2013 2:43p [facility] Nasima Colmenares, 64128 784.51 Assoc, Hospitalists D.O. 272.2 435.9 305.1 Office Visit 03/12/2013 12:52p [facility] Sanchez Warren, 91079 435.9 Services Of [employer] M.D. Office Visit 03/12/2013 2:42p [facility] [address] 784.51 Assoc, Hospitalists 272.2 434.11 305.1 Plan of Care Future Appointment(s):06/13/2018 1:15 pm - Jose Juan King MD at [facility].06/06/2018 - Jose Juan King MDT81.31xA Disruption of external operation (surgical) wound, NEC, initFollow up:1 weekI73.9 Peripheral vascular disease, unspecified
[2018-07-01 13:13] LABS: ABS Basophils 0.1 10^3/ul (0-0.2); ABS Eosinophils 0.2 10^3/ul (0-0.6); ABS Lymphocytes 0.8 10^3/ul (1.0-4.8); ABS Monocytes 0.6 10^3/ul (0-0.8); ABS Neutrophils 4.7 10^3/ul (1.5-7.7); ABS Nucleated RBC 0 10^3/ul; Eosinophil % 3.2 % (0-6); Hematocrit 31 % (42-52); Hemoglobin 10.6 g/dl (14.0-18.0); Lymphocyte % 12.8 % (25-47); Mean Corpuscular HGB Conc 34 g/dl (31-36); Mean Corpuscular Hemoglobin 29 pg (27-31); Mean Corpuscular Volume 85 fL (80-94); Mean Platelet Volume 7.4 um3 (7.4-10.4); Nucleated Red Blood Cells % 0.1; Platelet Count 145 10^3/ul (150-450); Red Blood Count 3.62 10^6/ul (4.00-5.40); Red Cell Distribution Width 13 % (10.5-15); White Blood Count 6.4 10^3/ul (3.5-10.8)
[2018-07-01 13:33] LABS: EGFR Non-African American 34.8 (>60)
[2018-07-01 19:21] VITALS: BP 141/71
== END 2018-07-01 19:43 | disposition home or self-care (01) ==
LOC: ED 12:09
DX: F32.9 Major depressive disorder, single episode, unspecified (principal); R45.851 Suicidal ideations; Z87.891 Personal history of nicotine dependence; E11.9 Type 2 diabetes mellitus without complications; Z79.4 Long term (current) use of insulin; M45.9 Ankylosing spondylitis of unspecified sites in spine; I25.119 Atherosclerotic heart disease of native coronary artery with unspecified angina pectoris; Z79.899 Other long term (current) drug therapy
CPT/HCPCS: 36415; 80053; 80320; 80329; 84443; 85025; 93005; 99284; G0480

== ENCOUNTER 2018-07-25 08:58 | Emergency (ER) | payer MEDICARE, OTHER ==
--- NOTE | 2018-07-25 09:35 | ED ---
Lower Extremity - HPI Summary HPI Summary: Patient is a 62 y/o M w/ c/o left foot numbness onsetting yesterday. Patient had left big toe amputation a couple of months ago and a revascularization. He is a patient of Dr. Ghosh. Patient was seem by Dr. Ghosh two days ago, patient called Dr. Ghosh this morning about sudden onset of yesterday's Sx. He told patient to come to ED. He denies pain at his foot, chest pain, SOB, and abdominal pain. In the room, he notes left calf pain as well as nausea. In the room, nothing is noted to aggravate/alleviate Sx. PMHx of MRSA. Patient is a former smoker, notes that he is supposed to be on a blood thinner but has yet to sheepskin pickler his prescription. Home medications and allergies are reviewed. - History of Current Complaint Chief Complaint: EDExtremityLower Stated Complaint: LT FOOT NUMBNESS Hx Obtained From: Patient Mechanism Of Injury: Other - no injury reported Onset of Pain: Days - onset of numbness was yesterday Onset/Duration: Days - onset of numbness was yesterday Severity Currently: Mild - calf pain reported Timing: Constant Location: Is Discrete @ - left foot Associated Signs And Symptoms: Positive: Other - left foot numbness, nausea, left calf pain; no chest pain, no abdominal pain, no SOB. Negative: Abdominal Pain Aggravating Factor(s): Nothing Alleviating Factor(s): Nothing - Allergies/Home Medications Allergies/Adverse Reactions: Allergies Allergy/AdvReac Type Severity Reaction Status Date / Time No Known Allergies Allergy Verified 07/25/18 09:14 PMH/Surg Hx/FS Hx/Imm Hx Endocrine/Hematology History: Reports: Hx Diabetes - IDDM, Other Endocrine/ Hematological Disorders - ankylosing spondylitis Cardiovascular History: Reports: Hx Angina, Hx Coronary Artery Disease, Hx Hypercholesterolemia, Hx Hypertension, Hx Peripheral Vascular Disease, Other Cardiovascular Problems/Disorders - carotid stenosis, intermediate coronary syndrome Denies: Hx Pacemaker/ICD Respiratory History: Reports: Other Respiratory Problems/Disorders - smoker Denies: Hx Asthma, Hx Chronic Obstructive Pulmonary Disease (COPD) History: Denies: Hx Dialysis, Hx Renal Disease Musculoskeletal History: Reports: Hx Back Problems - spinal fusion, laminerctomy decompression, Hx Orthopedic Injury - septic arthritis left knee, Other Musculoskeletal History - hx osteomylitis left ankle and foot, reports hx multiple fx in body Sensory History: Reports: Hx Contacts or Glasses - glasses Denies: Hx Hearing Aid Opthamlomology History: Reports: Hx Contacts or Glasses - glasses Neurological History: Reports: Hx Nerve Disease, Hx Seizures - reports last was 4 yrs ago - sees dr jenkins, Hx Spinal Cord Injury, Hx Transient Ischemic Attacks (TIA), Other Neuro Impairments/Disorders - essential tremors Denies: Hx Dementia Psychiatric History: Reports: Hx Depression, Hx Inpatient Treatment - in [facility] 2009, Hx Suicide Attempt - SI/ATTEMPT 05/2010 Denies: Hx Anxiety, Hx Eating Disorder, Hx Panic Disorder, Hx of Violent Episodes Against Others - Surgical History Surgery Procedure, Year, and Place: LSP laminectomy 1970 - [place]. LSP fusion. carotid endartectomy 2015[place]. left knee I&[place] (from [facility] [facility] [place]. appendectomy - [facility]. T&A. left great toe amputation. revascularization of left leg- no stents placed Hx Anesthesia Reactions: No - Immunization History Date of Tetanus Vaccine: Shot "within past ten years" Date of Influenza Vaccine: unk Infectious Disease History: Yes Infectious Disease History: Denies: Traveled Outside the [place] in Last 30 Days - Family History Known Family History: Positive: Diabetes - Social History Alcohol Use: None Hx Substance Use: No Substance Use Type: Reports: None Substance Use Comment - Amount & Last Used: uses cbd daily Hx Tobacco Use: Yes Smoking Status (MU): Former Smoker Type: Cigarettes Amount Used/How Often: 1 ppd for 50 yrs Length of Time of Smoking/Using Tobacco: 40 years Have You Smoked in the Last Year: Yes Review of Systems Negative: Chest Pain Negative: Shortness Of Breath Positive: Nausea. Negative: Abdominal Pain Positive: Other - left calf pain Positive: Numbness - left foot numbness All Other Systems Reviewed And Are Negative: Yes Physical Exam - Summary Physical Exam Summary: Appearance: Well appearing, no pain distress Skin: warm, dry, reflects adequate perfusion Head/face: normal Eyes: EOMI, [place] ENT: normal Neck: supple, non-tender Respiratory: CTA, breath sounds present Cardiovascular: RRR, pulses symmetrical Abdomen: non-tender, soft Bowel: present Musculoskeletal: left big toe amputation, no pulses, poor cap refill, foot is cold to touch , tenderness lf calf muscles. Neuro: normal, sensory motor intact, A&Ox3 Triage Information Reviewed: Yes Vital Signs On Initial Exam: Initial Vitals Temp Pulse Resp BP Pulse Ox 97.8 F 85 16 107/89 100 07/25/18 09:06 07/25/18 09:06 07/25/18 09:06 07/25/18 09:06 07/25/18 09:06 Vital Signs Reviewed: Yes Diagnostics - Vital Signs Vital Signs Temp Pulse Resp BP Pulse Ox 07/25/18 09:06 97.8 F 85 16 107/89 100 - Laboratory Result Diagrams: 07/25/18 09:57 07/25/18 09:57 Lab Statement: Any lab studies that have been ordered have been reviewed, and results considered in the medical decision making process. - Radiology CXR Radiology Interpretation Completed By: Radiologist Summary of Radiographic Findings: #. Low lung volumes with subsegmental atelectasis. #. Mild cardiomegaly without evidence for pulmonary edema. This report was reviewed by ed physician. - Ultrasound No standard instances Ultrasound Interpretation Completed By: Radiologist Summary of Ultrasound Findings: Duplex scan of lower extremity artery shows : There is occlusion of the distal left popliteal artery and posterior tibial. trunk. The proximal posterior tibial artery also demonstrates no flow. These findings are. new since April 15, 2018. This report was reviewed by ed physician. - EKG 0955 Cardiac Rate: NL - rate of 84 bpm EKG Rhythm: Sinus Rhythm Summary of EKG Findings: no acute changes Re-Evaluation - Re-Evaluation First Eval Re-Evaluation Time: 09:47 Comment: Discussed consult with Dr. Ghosh, patient is agreeable with transfer if needed. Second Eval Re-Evaluation Time: 11:33 Comment: Communicated results of arterial duplex study and the need for a vascular surgeon to patient. As there is no vascular surgeon at [facility], patient will have to be transferred. Patient and family requests Doroteo Nascimento. Lower Extremity Course/Dx - Course Course Of Treatment: Patient is a 62 y/o M w/ c/o left foot numbness onsetting yesterday. Patient had left big toe amputation a couple of months ago and a revascularization. He is a patient of Dr. Ghosh. He denies pain at his foot, chest pain, SOB, and abdominal pain. In the room, he notes left calf pain as well as nausea. Physical exam showed left big toe amputation, no pulse, poor cap refill, area is cold to touch. During ED course, patient received Heparin drip and heparin vial. Bloodwork obtained. CXR showed #. Low lung volumes with subsegmental atelectasis. #. Mild cardiomegaly without evidence for pulmonary edema. EKG showed sinus rhythm w rate of 84 BPM, no acute changes. 0944 - Dr. Ghosh was consulted, he asks for aterial duplex. He notes that transfer for surgery is a possibility. Duplex scan of lower extremity artery shows : There is occlusion of the distal left popliteal artery and posterior tibial. trunk. The proximal posterior tibial artery also demonstrates no flow. These findings are. new since April 15, 2018. Results of duplex artery scan were communicated to patient as well as need for vascular surgeon. As there is no vascular surgeon at [facility], patient will be transferred. Patient is agreeable with transfer and wants to go to [facility]. 1152 - Dr. Edwards from [facility] was consulted, he states he cannot accept patient for transfer as he is busy with another case. 1153 - Dr. Ghosh had arrived in ED and had evaluated patient. He states that patient can be discharged to home and he will either schedule for angiography early next week or refer to Vascular Surgery. Patient is agreeable with this plan. Dx of occlusion of left popliteal artery. - Diagnoses Differential Diagnosis/HQI/PQRI: Positive: Strain, Other - arterial occlusion lf leg Provider Diagnoses: Occlusion of left popliteal artery - Physician Notifications Discussed Care Of Patient With: Richardson Ghosh Time Discussed With Above Provider: 09:44 Instructed by Provider To: Other - 0944 - Dr. Ghosh was consulted, he asks for aterial duplex, notes that transfer for surgery is a possibility. Dr. Ghosh will come to evaluate patient as well. 1131 - Dr. Barney called to communicate the results of arterial duplex study. 1143 - Dr. Ghosh was updated on patient' s status. 1147 - Dr. Ghosh in room to evaluate patient. 152 - Dr. Edwards from [facility] was consulted, he states he cannot accept patient for transfer as he is busy with another case. 1153 - Dr. Ghosh had arrived in ED and had evaluated patient. He states that patient can be discharged to home and he will either schedule for angiography early next week or refer to Vascular Surgery. - Critical Care Time Critical Care Time: 30-74 min Discharge - Sign-Out/Discharge Documenting (check all that apply): Patient Departure - discharge - Discharge Plan Condition: Stable Disposition: HOME Patient Education Materials: Peripheral Artery Disease (ED) Referrals: Richardson Ghosh MD [Medical Doctor] - As Soon As Possible Additional Instructions: RETURN TO ED FOR ANY NEW OR WORSENING SYMPTOMS. FOLLOW UP WITH DR. GHOSH DISCUSSED SOON POSSIBLE. - Billing Disposition and Condition Condition: STABLE Disposition: Home - Attestation Statements Document Initiated by Scribe: Yes Documenting Scribe: Andres Dacosta Provider For Whom Scribe is Documenting (Include Credential): Nicanor Knowles MD Scribe Attestation: Andres Ugalde , scribed for Nicanor Knowles MD on 07/25/18 at 1445. Scribe Documentation Reviewed: Yes Provider Attestation: The documentation as recorded by the Andres shah accurately reflects the service I personally performed and the decisions made by me, Nicanor Knowles MD
[2018-07-25] MEDS ORDERED: Heparin DRIP 25,000 UNITS(*) 25,000 UNITS/500 ML BAG IVPB ONE (09:45)
--- OUTSIDE RECORDS SUMMARY | 2018-07-25 09:53 | XMS REPORT ---
:1955 External Reference #:[id number] Author Organization [employer] Address [address] [place] [address] [place] [address] Phone [phone] Care Team Providers Name Role Phone Gabbie Shell MD Primary Care Physician Unavailable Payers Type Date Identification Numbers Payment Provider Subscriber Commercial Effective: Policy Number: [id number] [employer]-[facility] Maryam Guardado 2010 PayID: [id number] [address] [place] [address] Medigap Part B Expires: 2018 Policy Number: Medicare Price Guardado [id number] PayID: [id number] [address] [place] [address] Medigap Part B Expires: 2018 Policy Number: Medicare Price Guardado [id number] PayID: [id number] [address] [place] [address] Medigap Part B Expires: 2018 Policy Number: [employer] Insurance [facility] [id number] Rufinajuan francisco Group Number: [id number] [address] PayID: [id number] [place] [address] Workers Compensation Onset: 2015 Policy Number: Jorden Guardado [id number] Group Number: [id number] [address] PayID: [id number] [place] [address] Problems Date Description Provider Status Onset: 04/22/2018 [...] mouth [place]queen, three M.D. times per day Metformin HCL / Active Tablets 1000mg 180tab [...] 0000 Rec every 12 hours through [facility] Keflex 05/05/ Hx Capsules 250mg 30caps Take 1 [facility] 2017 - capsule Fernando, 06/09/ qid 2017 Clindamycin HCL 05/02/ Hx Capsules 300mg 30caps Take 1 [facility] 2017 - Capsule Fernando, 05/07/ By Mouth 2017 Three Times Daily Oxycodone HCL 04/24/ Hx Tablets 5mg 15tabs 1 tab [facility] 2017 - every 4-6 Fernando, 07/06/ hours as 2017 needed for pain mdd 4 Clindamycin HCL 11/01/ Hx Capsules 300mg 90caps [...] 7 units sc at hs Bupropion HCL 00/ Hx Tablets ER 300mg 1 by Unknown [...] mouth 11/01/ 2016 times a day Cefazolin 00/00/ Hx Solution 1gm 2 gm iv Unknown Sodium 0000 - Rec every 8 02/17/ hours 2015 Percocet 00/00/ Hx Tablets 5-325mg 1 by Unknown 0000 - mouth 04/21/ every 4 2018 hours as needed pain Bentyl 00/00/ Hx Capsules 10mg take 1 Unknown 0000 - tablet by 2016 with every meal Tramadol HCL 00/00/ Hx Tablets 50mg 1 tablets Unknown 0000 [...] Tablet By Mouth 2017 Three Times Daily Vancomycin HCL 00/00/ Hx Solution 1000mg iv every Unknown 0000 - Rec 24 hours 2017 [facility] Vital Signs Date Vital Result Comment 07/07/2018 Height 67 inches 5'7" Weight 184.50 lb Heart Rate 86 /min BP Systolic 136 mmHg BP Diastolic 70 mmHg Respiratory Rate 18 /min Body Temperature 97.2 F Pain Level 0 BMI (Body Mass Index) 28.9 kg/m2 06/20/2018 Height 67 inches 5'7" Heart Rate [...] Result H/L Range Note Comp Metabolic Panel 06/23/2018 Sodium 137 mmol/L 135-145 Potassium 4.9 mmol/L 3.5-5.0 Chloride 107 mmol/L 101-111 Co2 Carbon Dioxide 22 mmol/L 22-32 Anion Gap 8 mmol/L 2-11 Calcium 8.6 mg/dL 8.6-10.3 Albumin 3.9 g/dL 3.2-5.2 Total Bilirubin 0.40 mg/dL 0.2-1.0 Glucose 223 mg/dL High 70-100 Blood Urea Nitrogen 20 mg/dL 6-24 Creatinine 1.63 mg/dL High 0.67-1.17 BUN/Creatinine Ratio 12.3 8-20 Total Protein 6.4 g/dL 6.4-8.9 Globulin 2.5 g/dL 2-4 Albumin/Globulin Ratio 1.6 1-3 Alkaline Phosphatase 59 U/L 34-104 Alt 16 U/L 7-52 Ast 15 U/L 13-39 Egfr Non- 42.8 >60 Egfr 51.8 >60 1 Laboratory test finding 06/23/2018 Vancomycin Trough 17.8 g/mL C Reactive Protein 4.23 mg/L <8.01 Comp Metabolic Panel 06/17/2018 Sodium 133 mmol/L [...] Egfr Non- 42.5 >60 Egfr 51.4 >60 2 Potassium 5.3 mmol/L High 3.5-5.0 Anion Gap 7 mmol/L 2-11 Glucose 553 mg/dL High 70-100 3 Laboratory test finding 06/17/2018 Vancomycin Trough 21.6 g/mL C Reactive Protein 6.85 mg/L <8.01 Laboratory test finding 06/13/2018 C Difficile PCR SEE RESULT BELOW 4 CBC Auto Diff 06/11/2018 White Blood Count [...] Egfr Non- 44.1 >60 Egfr 53.3 >60 5 Laboratory test finding 06/11/2018 Vancomycin Trough 24.8 g/mL C Reactive Protein 4.81 mg/L <8.01 Laboratory test 04/24/2018 Point of Care 331 mg/dL High 70-100 6 finding Glucose Laboratory test 04/24/2018 Point of Care 281 mg/dL High 70-100 7 finding Glucose Laboratory test 04/24/2018 Point of Care 232 mg/dL High 70-100 8 finding Glucose Laboratory test 04/24/2018 Point of Care 234 mg/dL High 70-100 9 finding Glucose Laboratory test 04/24/2018 Surgical Pathology SEE RESULT BELOW 10 finding Comp Metabolic Panel 11/14/2015 Sodium 135 [...] Egfr Non- 87.8 >60 Egfr 112.9 >60 11 Laboratory test finding 11/14/2015 C Reactive Protein 2.79 mg/L < 5.00 12 CBC Auto Diff 11/14/2015 White Blood Count [...] C Reactive Protein 4.89 mg/L < 5.00 13 Comp Metabolic Panel 11/08/2015 Sodium 135 mmol/L [...] Egfr Non- 82.3 >60 Egfr 105.9 >60 14 Comp Metabolic Panel 10/31/2015 Sodium 134 mmol/L [...] Egfr Non- 79.4 >60 Egfr 102.1 >60 15 Laboratory test finding 10/31/2015 C Reactive Protein 9.73 mg/L High < 5.00 16 CBC Auto Diff 10/31/2015 White Blood Count [...] Egfr Non- 71.6 >60 Egfr 92.0 >60 17 Laboratory test 10/24/2015 C Reactive Protein 15.74 mg/L High < 5.00 18 finding Laboratory test 10/13/2015 Point of Care 150 mg/dL High 74-106 19 finding Glucose Laboratory test 10/13/2015 Wound Culture/Sensi SEE RESULT BELOW 20 finding Tissue (BX) Culture & Gram St [...] RESULT BELOW 31 Laboratory test finding 10/13/2015 Wound Culture/Sensi SEE RESULT BELOW 32 Tissue (BX) Culture & Gram St SEE RESULT BELOW 33 MRSA/S. aureus Ssti PCR SEE RESULT BELOW 34 Anaerobic Culture SEE RESULT BELOW 35 Laboratory test finding 10/13/2015 Mycobacterial Culture See Comment 36 1 Because ethnic data is not always [...] 5 Kidney failure <15 (or dialysis) 2 Because ethnic data is not always [...] 5 Kidney failure <15 (or dialysis) 3 Critical Result [id number] Called to GONSALO at: 13:25:55 by:[id number] Read back by: GONSALO 4 SEE RESULT BELOW Name: PRICE GAURDADO : [address]: Jamar Pérez MD Acct: [id number] Unit: [id number] AGE: 62 Location: [facility] Re06/13/18 SEX: M Status: REG REF SPEC: [id number] GABO: 06/13/18-999 [facility] DR: Jamar Pérez MD REQ: [id number] RECD: 06/13/18613 STATUS: COMP _ SOURCE: STOOL SPDESC: ORDERED: C. diff PCR Procedure Result Reported Site Stool Specimen Description Final 06/13/18- 1609 ML Stool Color Brown Stool Form Formed Stool Consistency Hard C. difficile PCR Final 06/13/18- 1609 ML Test not performed * ML - Main Lab . END OF REPORT DEPARTMENT OF PATHOLOGY, [address] [place] [address] Vinayak Yanez M.D. Director [facility] # [id number] 5 Because ethnic data is not always [...] 5 Kidney failure <15 (or dialysis) 6 Nick Setter: [id number] Nick Setter: [id number] 8 Nick Setter: [id number] 9 Nick Setter: [id number] 10 SEE RESULT BELOW Name: DEBBYPRICE : [address]: Jose Juan King MD Acct: [id number] Unit: [id number] AGE: 62 Location: [place] Re04/24/18 SEX: M [place] [facility] SPEC: [id number] GABO: 04/24/18- [facility] DR: Jose Juan King MD REQ: [id number] RECD: 04/24/18-0270 STATUS: SOUT _ ORDERED: Decne, LEVEL 4 FINAL DIAGNOSIS Left great toe, [...] margin blue and plantar margin black, and automobile rental representative sections are submitted in cassettes A and B to include bone following decalcification in cassette A. Signed by and Reported on: Abby Ellis MD 04/29/18 1052 END OF REPORT DEPARTMENT OF PATHOLOGY, [address] [place] [address] Vinayak Yanez M.D. Director [facility] # [id number] 11 Because ethnic data is not always [...] (or dialysis) 12 Acute inflammation: >10.00 13 Acute inflammation: >10.00 14 Because ethnic [...] 5 Kidney failure <15 (or dialysis) 15 Because ethnic data is not always readily [...] 15-29 5 Kidney failure <15 (or dialysis) 16 Acute inflammation: >10.00 17 Because ethnic data is not always readily [...] 15-29 5 Kidney failure <15 (or dialysis) 18 Acute inflammation: >10.00 19 Nick Setter: [id number] FERNANDO PETTIT 20 SEE RESULT BELOW Name: PRICE GUARDADO : [address]: Jessie Lazar MD Acct: [id number] Unit: [id number] AGE: 60 Location: [facility] Re10/13/15 SEX: M Status: REG SDC SPEC: [id number] GABO: 10/13/15-1640 [facility] DR: Jessie Lazar MD REQ: [id number] RECD: 10/13/15 STATUS: RES OTHR DR: Gabbie [...] * ML - MAIN LAB ([facility]) . END OF REPORT * ML=Testing performed at Main Lab DEPARTMENT OF PATHOLOGY, [address] [place] [address] Vinayak Yanez M.D. Director [facility] # [id number] 21 SEE RESULT BELOW Name: PRICE GUARDADO : [address]: Jessie Lazar MD Acct: [id number] Unit: [id number] AGE: 60 Location: [facility] 338- Re10/13/15 Dis: 10/19/15 SEX: M Status: DIS IN SPEC: [id number] GABO: 10/13/15-1640 [facility] DR: Jessie Lazar MD REQ: [id number] RECD: 10/13/15 STATUS: RES OTHR DR: Gabbie Shell MD _ SOURCE: WOUND SPDESC:KNEE LEFT ORDERED: Tissue Cult/GS/R, Fungal - Other/R, Acid Fast Stain/U COMMENTS: CLOSTRIDIUM FINDINGS IN ADDITION TO S. AUREUS: Verbal to DR. SHELL by [id number] at 1411 on 10/15/15. Results read back [...] performed at Main Lab DEPARTMENT OF PATHOLOGY, [address] [place] [address] Vinayak Yanez M.D. Director [facility] # [id number] Patient: PRICE GUARDADO [id number] (Continued) Specimen: [id number] Collected: 10/13/15 Received: 10/13/15175 (Continued) Procedure Result Reported Site Acid Fast Stain - Direct Final (continued) 10/14/15817 Due to limited sensitivity of the smear, results should be used as an adjunct in evaluating the patient's status and cultural examination is highly recommended for diagnosis. * ML - MAIN LAB ([facility]) . END OF REPORT * ML=Testing performed at Main Lab DEPARTMENT OF PATHOLOGY, [address] [place] [address] Vinayak Yanez M.D. Director [facility] # [id number] 22 SEE RESULT BELOW Name: PRICE GUARDADO : [address]: Jessie Lazar MD Acct: [id number] Unit: [id number] AGE: 60 Location: [facility] 338- Re10/13/15 SEX: M Status: ADM IN SPEC: [id number] GABO: 10/13/15-1640 [facility] DR: Jessie Lazar MD REQ: [id number] RECD: 10/13/15 STATUS: RES OTHR DR: Gabbie Shell MD _ SOURCE: WOUND SPDESC:KNEE LEFT ORDERED: Anaerobic Cult/R, MRSA/SA SSTI/R, Culture Stain/R, Fungal - Other /R, Acid Fast Stain/U COMMENTS: Verbal to GEMINI CHAWLA by [id number] at 2020 on 10/13/15. Results read back [...] performed at Main Lab DEPARTMENT OF PATHOLOGY, [address] [place] [address] Vinayak Yanez M.D. Director [facility] # [id number] Patient: PRICE GUARDADO [id number] (Continued) Specimen: [id number] Collected: 10/13/15 Received: 10/13/15 (Continued) Procedure Result Reported Site Acid Fast Stain - Direct Final (continued) 10/14/15- 809 Due to limited sensitivity of the smear, results should be used as an adjunct in evaluating the patient's status and cultural examination is highly recommended for diagnosis. * ML - MAIN LAB ([facility]) . END OF REPORT * ML=Testing performed at Main Lab DEPARTMENT OF PATHOLOGY, [address] [place] [address] Vinayak Yanez M.D. Director [facility] # [id number] 23 SEE RESULT BELOW Name: PRICE GUARDADO : [address]: Jessie Lazar MD Acct: [id number] Unit: [id number] AGE: 60 Location: [facility] 338-01 Re10/13/15 Dis: 10/19/15 SEX: M Status: DIS IN SPEC: [id number] GABO: 10/13/15-[address]: Jessie Lazar MD REQ: [id number] RECD: 10/13/15 STATUS: RES OTHR DR: Gabbie Shell MD _ SOURCE: WOUND SPDESC:KNEE LEFT ORDERED: Anaerobic Cult/R, MRSA/SA SSTI/R, Culture Stain/R, Fungal - Other /R, Acid Fast Stain/U COMMENTS: Verbal to GEMINI CHAWLA by [id number] at 2020 on 10/13/15. Results read back accurately. CLOSTRIDIUM FINDINGS IN ADDITION TO S. AUREUS: Verbal to DR. SHELL by [id number] at 1411 on 10/15/15. Results read back [...] performed at Main Lab DEPARTMENT OF PATHOLOGY, [address] [place] [address] Vinayak Yanez M.D. Director [facility] # [id number] Patient: RUFINAPRICE HOLLY [id number] (Continued) Specimen: [id number] Collected: 10/13/15 Received: 10/13/15-1754 (Continued) Procedure Result Reported Site Wound/Misc Culture [...] These antibiotics are not available in the [facility] Formulary Contact the Microbiology Department for any additional antibiotic reporting. Fungal Cult - Other Sources Preliminary 10/24/15- 1325 ML Fungal Culture No Growth of Mycotic Organisms 1 week Acid Fast Stain - Direct Final 10/14/15- 0810 ML CONTINUED ON NEXT PAGE * ML=Testing performed at Main Lab DEPARTMENT OF PATHOLOGY, [address] [place] [address] Vinayak Yanez M.D. Director [facility] # [id number] Patient: PRICE GUARDADO [id number] (Continued) Specimen: [id number] Collected: 10/13/15-1639 Received: 10/13/15 (Continued) Procedure Result Reported Site Acid Fast Stain - Direct Final (continued) 10/14/15809 AFB Smear Result No Acid Fast Bacillus Present (Negative) Preparation By Direct Smear Due to limited sensitivity of the smear, results should be used as an adjunct in evaluating the patient's status and cultural examination is highly recommended for diagnosis. * ML - MAIN LAB ([facility]) . END OF REPORT * ML=Testing performed at Main Lab DEPARTMENT OF PATHOLOGY, [address] [place] [address] Vinayak Yanez M.D. Director [facility] # [id number] 24 SEE RESULT BELOW Name: PRICE GUARDADO : [address]: Jessie Lazar MD Acct: [id number] Unit: [id number] AGE: 60 Location: [facility] Re10/13/15 SEX: M Status: REG SDC SPEC: [id number] GABO: 10/13/15-1640 [facility] DR: Jessie Lazar MD REQ: [id number] RECD: 10/13/15 STATUS: RES OTHR DR: Gabbie [...] * ML - MAIN LAB ([facility]) . END OF REPORT * ML=Testing performed at Main Lab DEPARTMENT OF PATHOLOGY, [address] [place] [address] Vinayak Yanez M.D. Director [facility] # [id number] 25 SEE RESULT BELOW Name: PRICE GUARDADO : [address]: Jessie Lazar MD Acct: [id number] Unit: [id number] AGE: 60 Location: [facility] 338-01 Re10/13/15 Dis: 10/19/15 SEX: M Status: DIS IN SPEC: [id number] GABO: 10/13/15-[address]: Jessie Lazar MD REQ: [id number] RECD: 10/13/15 STATUS: RES OTHR DR: Gabbie Shell MD _ SOURCE: WOUND SPDESC:KNEE LEFT ORDERED: Tissue Cult/GS/R, Fungal - Other/R, Acid Fast Stain/U COMMENTS: CLOSTRIDIUM FINDINGS IN ADDITION TO S. AUREUS: Verbal to DR. SHELL by [id number] at 1411 on 10/15/15. Results read back accurately. Procedure Result Reported Site Tissue Gram Stain Final 10/13/15- 1850 ML 2+ Neutrophils 2+ Gram Positive Cocci 2+ Gram Positive Bacilli Preparation By Direct Smear Tissue Culture Final 10/17/15- 08 ML Organism 1 STAPHYLOCOCCUS AUREUS Quantity 3+ [...] performed at Main Lab DEPARTMENT OF PATHOLOGY, [address] [place] [address] Vinayak Yanez M.D. Director [facility] # [id number] Patient: PRICE GUARDADO [id number] (Continued) Specimen: [id number] Collected: 10/13/15 Received: 10/13/15 (Continued) Procedure Result Reported Site Acid Fast Stain - Direct Final (continued) 10/14/15817 Due to limited sensitivity of the smear, results should be used as an adjunct in evaluating the patient's status and cultural examination is highly recommended for diagnosis. * ML - MAIN LAB ([facility]) . END OF REPORT * ML=Testing performed at Main Lab DEPARTMENT OF PATHOLOGY, [address] [place] [address] Vinayak Yanez M.D. Director [facility] # [id number] 26 SEE RESULT BELOW Name: PRICE GUARDADO : [address]: Jessie Lazar MD Acct: [id number] Unit: [id number] AGE: 60 Location: [facility] 338-01 Re10/13/15 SEX: M Status: ADM IN SPEC: [id number] GABO: 10/13/15-1640 [facility] DR: Jessie Lazar MD REQ: [id number] RECD: 10/13/15640 STATUS: RES OTHR DR: Gabbie Shell MD _ SOURCE: WOUND SPDESC:KNEE LEFT ORDERED: Anaerobic Cult/R, MRSA/SA SSTI/R, Culture Stain/R, Fungal - Other /R, Acid Fast Stain/U COMMENTS: Verbal to GEMINI REYES CAMMY by [id number] at 2020 on 10/13/15. Results read back [...] performed at Main Lab DEPARTMENT OF PATHOLOGY, [address] [place] [address] Vinayak Yanez M.D. Director [facility] # [id number] Patient: PRICE GUARDADO [id number] (Continued) Specimen: [id number] Collected: 10/13/15-1639 Received: 10/13/15 (Continued) Procedure Result Reported Site Acid Fast Stain - Direct Final (continued) 10/14/15809 Due to limited sensitivity of the smear, results should be used as an adjunct in evaluating the patient's status and cultural examination is highly recommended for diagnosis. * ML - MAIN LAB ([facility]) . END OF REPORT * ML=Testing performed at Main Lab DEPARTMENT OF PATHOLOGY, [address] [place] [address] Vinayak Yanez M.D. Director [facility] # [id number] 27 SEE RESULT BELOW Name: RUFINAJUAN FRANCISCOPRICE : [address]: Jessie Lazar MD Acct: [id number] Unit: [id number] AGE: 60 Location: [place] [address] Re10/13/15 Dis: 10/19/15 SEX: M Status: DIS IN SPEC: [id number] GABO: 10/13/15-1640 [facility] DR: Jessie Lazar MD REQ: [id number] RECD: 10/13/15 STATUS: RES OTHR DR: Gabbie Shell MD _ SOURCE: WOUND SPDESC:KNEE LEFT ORDERED: Anaerobic Cult/R, MRSA/SA SSTI/R, Culture Stain/R, Fungal - Other /R, Acid Fast Stain/U COMMENTS: Verbal to GEMINI CHAWLA by [id number] at 2020 on 10/13/15. Results read back accurately. CLOSTRIDIUM FINDINGS IN ADDITION TO S. AUREUS: Verbal to DR. SHELL by [id number] at 1411 on 10/15/15. Results read back [...] performed at Main Lab DEPARTMENT OF PATHOLOGY, [address] [place] [address] Vinayak Yanez M.D. Director [facility] # [id number] Patient: PRICE GUARDADO [id number] (Continued) Specimen: [id number] Collected: 10/13/15-1639 Received: 10/13/15 (Continued) Procedure Result [...] These antibiotics are not available in the [facility] Formulary Contact the Microbiology Department for any additional antibiotic reporting. Fungal Cult - Other Sources Preliminary 10/31/15- 1443 ML Fungal Culture No Growth of Mycotic Organisms 2 weeks Acid Fast Stain - Direct Final 10/14/15- 0810 ML CONTINUED ON NEXT PAGE * ML=Testing performed at Main Lab DEPARTMENT OF PATHOLOGY, [address] [place] [address] Vinayak Yanez M.D. Director [facility] # [id number] Patient: PRICE GUARDADO [id number] (Continued) Specimen: [id number] Collected: 10/13/15 Received: 10/13/15380 (Continued) Procedure Result Reported Site Acid Fast Stain - Direct Final (continued) 10/14/15- 08 AFB Smear Result No Acid Fast Bacillus Present (Negative) Preparation By Direct Smear Due to limited sensitivity of the smear, results should be used as an adjunct in evaluating the patient's status and cultural examination is highly recommended for diagnosis. * ML - MAIN LAB ([facility]) . END OF REPORT * ML=Testing performed at Main Lab DEPARTMENT OF PATHOLOGY, [address] [place] [address] Vinayak Yanez M.D. Director [facility] # [id number] 28 SEE RESULT BELOW Name: PRICE GUARDADO : [address]: Jessie Lazar MD Acct: [id number] Unit: [id number] AGE: 60 Location: [facility] Re10/13/15 SEX: M Status[place] [facility] SPEC: [id number] GABO: 10/13/15-[address]: Jessie Lazar MD REQ: [id number] RECD: 10/13/15 STATUS: RES OTHR DR: Gabbie [...] * ML - MAIN LAB ([facility]) . END OF REPORT * ML=Testing performed at Main Lab DEPARTMENT OF PATHOLOGY, [address] [place] [address] Vinayak Yanez M.D. Director [facility] # [id number] 29 SEE RESULT BELOW Name: PRICE GUARDADO Arcenio : [address]: Jessie Lazar MD Acct: [id number] Unit: [id number] AGE: 60 Location: [place] [address]01 Re10/13/15 Dis: 10/19/15 SEX: M Status: DIS IN SPEC: [id number] GABO: 10/13/15-1640 [facility] DR: Jessie Lazar MD REQ: [id number] RECD: 10/13/15 STATUS: RES OTHR DR: Gabbie Shell MD _ SOURCE: WOUND SPDESC:KNEE LEFT ORDERED: Tissue Cult/GS/R, Fungal - Other/R, Acid Fast Stain/U COMMENTS: CLOSTRIDIUM FINDINGS IN ADDITION TO S. AUREUS: Verbal to DR. SHELL by [id number] at 1411 on 10/15/15. Results read back [...] performed at Main Lab DEPARTMENT OF PATHOLOGY, [address] [place] [address] Vinayak Yanez M.D. Director [facility] # [id number] Patient: PRICE GUARDADO [id number] (Continued) Specimen: [id number] Collected: 10/13/15-1639 Received: 10/13/15 (Continued) Procedure Result Reported Site Acid Fast Stain - Direct Final (continued) 10/14/15817 Due to limited sensitivity of the smear, results should be used as an adjunct in evaluating the patient's status and cultural examination is highly recommended for diagnosis. * ML - MAIN LAB ([facility]) . END OF REPORT * ML=Testing performed at Main Lab DEPARTMENT OF PATHOLOGY, [address] [place] [address] Vinayak Yanez M.D. Director [facility] # [id number] 30 SEE RESULT BELOW Name: PRICE GUARDADO : [address]: Jessie Lazar MD Acct: [id number] Unit: [id number] AGE: 60 Location: [place] [address] Re10/13/15 SEX: M Status: ADM IN SPEC: [id number] GABO: 10/13/15-1640 [facility] DR: Jessie Lazar MD REQ: [id number] RECD: 10/13/15 STATUS: RES OTHR DR: Gabbie Shell MD _ SOURCE: WOUND SPDESC:KNEE LEFT ORDERED: Anaerobic Cult/R, MRSA/SA SSTI/R, Culture Stain/R, Fungal - Other /R, Acid Fast Stain/U COMMENTS: Verbal to GEMINI CHAWLA by [id number] at 2020 on 10/13/15. Results read back [...] performed at Main Lab DEPARTMENT OF PATHOLOGY, [address] [place] [address] Vinayak Yanez M.D. Director [facility] # [id number] Patient: PRICE GUARDADO [id number] (Continued) Specimen: [id number] Collected: 10/13/15 Received: 10/13/15 (Continued) Procedure Result Reported Site Acid Fast Stain - Direct Final (continued) 10/14/15809 Due to limited sensitivity of the smear, results should be used as an adjunct in evaluating the patient's status and cultural examination is highly recommended for diagnosis. * ML - MAIN LAB ([facility]) . END OF REPORT * ML=Testing performed at Main Lab DEPARTMENT OF PATHOLOGY, [address] [place] [address] Vinayak Yanez M.D. Director [facility] # [id number] 31 SEE RESULT BELOW Name: PRICE GUARDADO : [address]: Jessie Lazar MD Acct: [id number] Unit: [id number] AGE: 60 Location: [facility] 338-01 Re10/13/15 Dis: 10/19/15 SEX: M Status: DIS IN SPEC: [id number] GABO: 10/13/15-1640 [facility] DR: Jessie Lazar MD REQ: [id number] RECD: 10/13/15 STATUS: RES OTHR DR: Gabbie Shell MD _ SOURCE: WOUND SPDESC:KNEE LEFT ORDERED: Anaerobic Cult/R, MRSA/SA SSTI/R, Culture Stain/R, Fungal - Other /R, Acid Fast Stain/U COMMENTS: Verbal to GEMINI CHAWLA by [id number] at 2020 on 10/13/15. Results read back accurately. CLOSTRIDIUM FINDINGS IN ADDITION TO S. AUREUS: Verbal to DR. SHELL by [id number] at 1411 on 10/15/15. Results read back [...] performed at Main Lab DEPARTMENT OF PATHOLOGY, [address] [place] [address] Vinayak Yanez M.D. Director [facility] # [id number] Patient: PRICE GUARDADO [id number] (Continued) Specimen: [id number] Collected: 10/13/15 Received: 10/13/15 (Continued) Procedure Result Reported Site Wound/Misc Culture Final (continued) 10/15/15- 0846 Organism 1 STAPHYLOCOCCUS AUREUS Quantity 3+ [...] These antibiotics are not available in the [facility] Formulary Contact the Microbiology Department for any additional antibiotic reporting. Fungal Cult - Other Sources Preliminary 11/07/15- 1229 ML Fungal Culture No Growth of Mycotic Organisms 3 weeks Acid Fast Stain - Direct Final 10/14/15- 0810 ML CONTINUED ON NEXT PAGE * ML=Testing performed at Main Lab DEPARTMENT OF PATHOLOGY, [address] [place] [address] Vinayak Yanez M.D. Director [facility] # [id number] Patient: PRICE GUARDADO [id number] (Continued) Specimen: [id number] Collected: 10/13/15-1639 Received: 10/13/15 (Continued) Procedure Result Reported Site Acid Fast Stain - Direct Final (continued) 10/14/15809 AFB Smear Result No Acid Fast Bacillus Present (Negative) Preparation By Direct Smear Due to limited sensitivity of the smear, results should be used as an adjunct in evaluating the patient's status and cultural examination is highly recommended for diagnosis. * ML - MAIN LAB ([facility]) . END OF REPORT * ML=Testing performed at Main Lab DEPARTMENT OF PATHOLOGY, [address] [place] [address] Vinayak Yanez M.D. Director [facility] # [id number] 32 SEE RESULT BELOW Name: PRICE GUARDADO : [address]: Jessie Lazar MD Acct: [id number] Unit: [id number] AGE: 60 Location: SDS Re10/13/15 SEX: M Status: REG SDC SPEC: [id number] GABO: 10/13/15-1640 [facility] DR: Jessie Lazar MD REQ: [id number] RECD: 10/13/15 STATUS: ALBINA CARLOS DR: Gabbie Shell MD _ SOURCE: [...] * ML - MAIN LAB ([facility]) . END OF REPORT * ML=Testing performed at Main Lab DEPARTMENT OF PATHOLOGY, [address] [place] [address] Vinayak Yanez M.D. Director [facility] # [id number] 33 SEE RESULT BELOW Name: PRICE GUARDADO : [address]: Jessie Lazar MD Acct: [id number] Unit: [id number] AGE: 60 Location: [facility] 338-01 Re10/13/15 Dis: 10/19/15 SEX: M Status: DIS IN SPEC: [id number] GABO: 10/13/15-[address]: Jessie Lazar MD REQ: [id number] RECD: 10/13/15 STATUS: COMP [facility] DR: Gabbie Shell MD _ SOURCE: WOUND SPDESC:KNEE LEFT ORDERED: Tissue Cult/GS/R, Fungal - Other/R, Acid Fast Stain/U COMMENTS: CLOSTRIDIUM FINDINGS IN ADDITION TO S. AUREUS: Verbal to DR. SHELL by [id number] at 1411 on 10/15/15. Results read back [...] performed at Main Lab DEPARTMENT OF PATHOLOGY, [address] [place] [address] Vinayak Yanez M.D. Director [facility] # [id number] Patient: PRICE GUARDADO [id number] (Continued) Specimen: [id number] Collected: 10/13/15 Received: 10/13/15 (Continued) Procedure Result Reported Site Acid Fast Stain - Direct Final (continued) 10/14/15- 08 Due to limited sensitivity of the smear, results should be used as an adjunct in evaluating the patient's status and cultural examination is highly recommended for diagnosis. * ML - MAIN LAB ([facility]) . END OF REPORT * ML=Testing performed at Main Lab DEPARTMENT OF PATHOLOGY, [address] [place] [address] Vinayak Yanez M.D. Director [facility] # [id number] 34 SEE RESULT BELOW Name: PRICE GUARDADO : [address]: Jessie Lazar MD Acct: [id number] Unit: [id number] AGE: 60 Location: [facility] 338-01 Re10/13/15 SEX: M Status: ADM IN SPEC: [id number] GABO: 10/13/15-[address] [place] [address] DR: Jessie Lazar MD REQ: [id number] RECD: 10/13/15 STATUS: RES OTHR DR: Gabbie Shell MD _ SOURCE: WOUND SPDESC:KNEE LEFT ORDERED: Anaerobic Cult/R, MRSA/SA SSTI/R, Culture Stain/R, Fungal - Other /R, Acid Fast Stain/U COMMENTS: Verbal to GEMINI REYES CAMMY by [id number] at 2020 on 10/13/15. Results read back [...] performed at Main Lab DEPARTMENT OF PATHOLOGY, [address] [place] [address] Vinayak Yanez M.D. Director [facility] # [id number] Patient: PRICE GUARDADO [id number] (Continued) Specimen: [id number] Collected: 10/13/15 Received: 10/13/15 (Continued) Procedure Result Reported Site Acid Fast Stain - Direct Final (continued) 10/14/15809 Due to limited sensitivity of the smear, results should be used as an adjunct in evaluating the patient's status and cultural examination is highly recommended for diagnosis. * ML - MAIN LAB ([facility]) . END OF REPORT * ML=Testing performed at Main Lab DEPARTMENT OF PATHOLOGY, [address] [place] [address] Vinayak Yanez M.D. Director [facility] # [id number] 35 SEE RESULT BELOW Name: PRICE GUARDADO : [address]: Jessie Lazar MD Acct: [id number] Unit: [id number] AGE: 60 Location: [facility] 338-01 Re10/13/15 Dis: 10/19/15 SEX: M Status: DIS IN SPEC: [id number] GABO: 10/13/15-1640 [facility] DR: Jessie Lazar MD REQ: [id number] RECD: 10/13/151084 STATUS: DOLORES CARLOS DR: Gabbie Shell MD _ SOURCE: WOUND SPDESC:KNEE LEFT ORDERED: Anaerobic Cult/R, MRSA/SA SSTI/R, Culture Stain/R, Fungal - Other /R, Acid Fast Stain/U COMMENTS: Verbal to GEMINI CHAWLA by [id number] at 2020 on 10/13/15. Results read back accurately. CLOSTRIDIUM FINDINGS IN ADDITION TO S. AUREUS: Verbal to DR. SHELL by [id number] at 1411 on 10/15/15. Results read back [...] ON NEXT PAGE * ML=Testing performed at [facility] DEPARTMENT OF PATHOLOGY, [address] [place] [address] Vinayak Yanez M.D. Director [facility] # [id number] Patient: PRICE GUARDADO [id number] (Continued) Specimen: [id number] Collected: 10/13/15-1639 Received: 10/13/15 (Continued) Procedure Result [...] These antibiotics are not available in the [facility] Formulary Contact the Microbiology Department for any additional antibiotic reporting. Fungal Cult - Other Sources Final 11/14/15- 1427 ML Fungal Culture No Growth of Mycotic Organisms 4 weeks Acid Fast Stain - Direct Final 10/14/15- 0810 ML CONTINUED ON NEXT PAGE * ML=Testing performed at Main Lab DEPARTMENT OF PATHOLOGY, [address] [place] [address] Vinayak Yanez M.D. Director [facility] # [id number] Patient: PRICE GUARDADO [id number] (Continued) Specimen: [id number] Collected: 10/13/15-1639 Received: 10/13/15-1753 (Continued) Procedure Result Reported Site Acid Fast Stain - Direct Final (continued) 10/14/15- 809 AFB Smear Result No Acid Fast Bacillus Present (Negative) Preparation By Direct Smear Due to limited sensitivity of the smear, results should be used as an adjunct in evaluating the patient's status and cultural examination is highly recommended for diagnosis. * ML - MAIN LAB ([facility]) . END OF REPORT * ML=Testing performed at Main Lab DEPARTMENT OF PATHOLOGY, [address] [place] [address] Vinayak Yanez M.D. Director [facility] # [id number] 36 SOURCE: KNEE, KNEE WOUND SWAB MYCOBACTERIAL CULTURE FINAL No growth after 60 days of incubation. Test Performed by: [place] [address] Director Of Corporate Real Estate: Cam Isidro II, M.D., Ph.D. Procedures Date CPT Code Description Status 05/29/2018 49346 Incision Bone Cortex Foot Completed 05/29/2018 46206 Layer Closure Of Wounds 2.6CM - 7.5CM Completed Neck,Hands,Feet,Genitalia 05/29/2018 32756 Layer Closure Of Wounds 2.6CM - 7.5CM Completed Neck,Hands,Feet,Genitalia 05/29/2018 95577 Debridement Tissue/Muscle/Bone Completed 04/24/2018 30752 Amputation,Toe;Interphalangeal Joint Completed 04/24/2018 75403 Amputation,Toe;Interphalangeal Joint Completed 04/24/2018 64143 Amputation,Toe;Interphalangeal Joint Completed 04/24/2018 90239 Amputation,Toe;Interphalangeal Joint Completed 04/24/2018 97751 Amputation,Toe;Interphalangeal Joint Completed 04/18/2018 72766 Moderate Sedation Services; Same Phys Each Additional Completed 15 Mins 04/18/2018 33456 Moderate Sedation Services; Same Phys Intl 15 Mins; PT Completed >=5 Years 04/18/2018 59043 Ultrasound Guidance For Vascular Access Completed 04/18/2018 37254 Angio Extremity, Bilateral Completed 04/18/2018 27230 Revascularization,Endovascular W/Atherectomy, Inc Completed Angioplasty 04/18/2018 92523 Revascularization,Endovascular W/Atherectomy, Inc Completed Angioplasty 12/10/2016 29909 ECHO Transthorasic Realtime 2D W Doppler & Color Flow Completed Hosp 12/09/2016 90796 EKG, Interpretation Only Completed 01/10/2016 51145 Treadmill Interp/Report Only Completed 01/10/2016 17395 Stress Test Supervsn W/Out I/R Completed 10/15/2015 69117 Arthroscopy,Knee For Infection,Lavage & Drainage Completed 10/15/2015 97175 Arthroscopy,Knee For Infection,Lavage & Drainage Completed 10/15/2015 97364 Arthroscopy,Knee For Infection,Lavage & Drainage Completed 10/15/2015 33135 Arthroscopy,Knee For Infection,Lavage & Drainage Completed 10/13/2015 32896 Arthroscopy,Knee,Meniscectomy Medial Or Lateral Completed 10/13/2015 31734 Arthroscopy,Knee,Meniscectomy Medial Or Lateral Completed 10/13/2015 28116 Arthroscopy,Knee For Infection,Lavage & Drainage Completed 05/18/2013 12811 EEG Recording Awake & Asleep Completed 03/13/2013 10610 Color Flow Doppler/Interp & Reprt Completed 03/13/2013 05266 Pulse Wave/Continuous-Interp.RPT Completed 03/13/2013 49299 Echocardiography, Transesophageal, Real Time W/Image 2D Completed W/W/O M-M Encounters Type Date Location Provider CPT E/M Dx Office Visit 06/16/2018 [facility] [place]. [address] T87.44 1:20p Infectious Diseases Gabrielle Pérez T81.31xA I73.9 Z79.2 R19.7 E11.51 E11.69 Office Visit 06/04/2018 1:00p [facility] Jamar Pérez, 69709 T87.44 Infectious Diseases M.D. E11.69 M86.172 Z89.412 Office Visit 06/03/2018 2:51p [facility] 54863 T81.31xD Assoc,pc Hospitalists Kirk, DEBARKER OPERATOR F32.9 N17.9 E11.9 I73.9 Office Visit 06/02/2018 2:50p [facility] 42041 T81.31xD Assoc,pc Hospitalists Doto, DEBARKER OPERATOR F32.9 N17.9 E11.9 I73.9 Office Visit 06/01/2018 2:50p [facility] 60764 T81.31xD Assoc,pc Hospitalists Kirk, DEBARKER OPERATOR F32.9 N17.9 E11.9 I73.9 Office Visit 05/31/2018 2:50p [facility] 12337 T81.31xA Assoc,pc Hospitalists Kirk, DEBARKER OPERATOR F32.9 N17.9 E11.9 I73.9 Office Visit 05/30/2018 2:49p [facility] Hope, 66256 T81.31xD Assoc,pc Hospitalists DEBARKER OPERATOR I73.9 E11.9 Office Visit 05/29/2018 2:49p [facility] [place], 92854 T81.31xD Assoc,pc Hospitalists DEBARKER OPERATOR N17.9 I73.9 E11.9 Office Visit 05/28/2018 12:39p [facility] Jamar Pérez, 79905 T87.81 Infectious Diseases M.D. T87.44 Z89.412 E11.69 M86.172 Office Visit 05/28/2018 2:48p [facility] [place], 27879 T81.31xD Assoc,pc Hospitalists DEBARKER OPERATOR N17.9 I73.9 E11.9 Office Visit 05/28/2018 2:17p [facility] Rea 48029 L03.116 C.M.A. T81.31xA Office Visit [facility]/27[facility]2018 [facility] [address] T81.31xD Assoc,pc Hospitalists DEBARKER OPERATOR Z89.412 E11.52 Z79.4 I73.9 Z71.6 Office Visit 05/08/2018 1:40p [facility] Jamar Jordan 36753 Z89.412 Infectious Diseases Gabrielle Pérez E11.52 Office Visit 04/22/2018 1:30p [facility] [place] [address] M86.172 C.M.A. Office Visit 04/19/2018 9:33a [facility] [place] [address] Z47.89 C.M.A. Office Visit 04/19/2018 11:31a [facility] [place] [place] [address] L97.513 Assoc,pc Hospitalists E11.52 I73.9 Office Visit 04/18/2018 11:30a [facility] Aldo Lambert, 73078 L97.513 Assoc,pc Hospitalists PA E11.52 I73.9 F32.9 G25.0 Office Visit 04/17/2018 11:30a [facility]oc, Joe Ramírez, 81963 L97.513 Hospitalists Gabrielle E11.52 Office Visit 04/16/2018 1:09p [facility], Steffanie Larsen 54647 I73.9 Hospitalists MARJORIE Bradley E11.51 Office Visit 04/16/2018 9:11a [facility] Vascular Medicine Richardson Mahan, 11171 I70.213 Of Pal Anthony M87.878 Office Visit 04/15/2018 2:11p [facility] 21917 M87.078 C.M.A. L03.032 Office Visit 04/15/2018 11:29a [facility]oc, [place] [address] L97.513 Hospitalists E11.9 F32.9 Office Visit 04/15/2018 12:44p [facility] Jamar Pérez, 79558 E11.52 Infectious Diseases Gabrielle Z86.73 Office Visit 12/10/2016 2:49p [facility] [place] [address] G45.9 Office Visit 12/10/2016 3:56p [facility], Tiffanie Minach, 83181 R07.2 Hospitalists DEBARKER OPERATOR R55 E11.9 G45.9 Office Visit 12/09/2016 3:55p [facility], [address] R55 Hospitalists Gabrielle R07.2 E11.9 G45.9 Office Visit 12/09/2016 1:48p [facility] Sae Izoliva, 68075 G45.9 M.D. Office Visit 01/10/2016 12:51p [facility], Sadie 95050 R07.9 Hospitalists Xavier harrison NP N17.9 E11.9 I10 Office Visit 01/09/2016 12:50p [facility], Ezekiel Curtis.Robert. 05576 R07.9 Hospitalists E11.9 N17.9 I10 Office Visit 11/30/2015 3:20p [facility] Madalyn Jordan 86389 M00.062 Infectious Noé Pérez M.D. Office Visit 11/16/2015 3:20p [facility] Madalyn Jordan 61552 M00.062 Infectious Noé Pérez M.D. B96.7 Office Visit 11/03/2015 2:00p [facility] Madalyn Jordan 99994 M00.062 Infectious Noé Pérez M.D. M00.062 Office Visit 10/19/2015 9:02a [facility] Madalyn Jordan 46683 M00.062 Infectious Noé Pérez M.D. L02.416 Office Visit 10/19/2015 10:02a [facility] [place] [address] M00.062 Assoc, Hospitalists B96.7 E11.8 Office Visit 10/18/2015 8:56a [facility] Madalyn Jordan 98393 M00.062 Infectious Noé Pérez M.D. R19.7 V99.xxxA B96.7 Office Visit 10/18/2015 10:02a [facility] Sanchez Shell, 81953 M00.062 Hospitalists Gabrielle E11.8 B96.7 Office Visit 10/17/2015 10[facility] [place], 62506 M00.062 Hospitalists Gabrielle B96.7 E11.8 Office Visit 10/16/2015 10:00a [facility] Sanchez Shell, 26089 M00.062 Hospitalists MFreda B96.7 E11.8 Office Visit 10/15/2015 10:00a [facility], [place], 62137 M00.062 Hospitalists Gabrielle B96.7 E11.8 Office Visit 10/14/2015 9:59a [facility], Nasima Colmenares, 06719 M00.062 Hospitalists D.O. E11.8 Office Visit 10/13/2015 9:58a [facility] Tiffanie Minach, 39543 M00.062 Assoc, Hospitalists DEBARKER OPERATOR E11.8 Office Visit 10/13/2015 7:00a [facility] [place] [address] M25.562 C.M.A. M25.462 S81.012A B96.89 Office Visit 07/29/2013 8:30a [facility] [place], 06839 333.1 Services Of Dials Inspector M.D. Office Visit 06/19/2013 11:30a [facility] [place], 50879 437.9 Services Of Dials Inspector M.D. Office Visit 05/12/2013 10:45a [facility] [place], 92106 345.40 Services Of Dials Inspector M.D. 438.89 331.83 Office Visit 03/13/2013 12:53p [facility] Sanchez [place], 50541 435.9 Services Of Dials Inspector M.D. Office Visit 03/13/2013 2:43p [facility] Nasima Colmenares, 55959 784.51 Assoc, Hospitalists D.O. 272.2 435.9 305.1 Office Visit 03/12/2013 12:52p [facility] [place], 42124 435.9 Services Of Dials Inspector M.D. Office Visit 03/12/2013 2:42p [facility] [place] [address] 784.51 Assoc, Hospitalists 272.2 434.11 305.1 Plan of Care Future Appointment(s):07/28/2018 1:45 pm - Jose Juan King MD at [facility]07/07/2018 - Jose Juan King MDT81.31xA Disruption of external operation (surgical) wound, NEC, initReferral:Richardson Mahan MD,Follow up: Follow Up: [address] Araujo73.9 Peripheral vascular disease, dtahgaduremE89.69 Type 2 diabetes mellitus with other specified complication
--- OUTSIDE RECORDS SUMMARY | 2018-07-25 09:53 | XMS REPORT ---
:1955 External Reference #:[id number] Author Organization [facility] Address [address] [place] [address] Phone [phone] Care Team Providers Name Role Phone Gabbie Botello M.D. Care Team Information Medical Assisting Instructor Unavailable Gabbie Botello M.D. Primary Care Physician Unavailable Payers Type Date Identification Payment Subscriber Numbers Provider Health Maintenance Effective: Policy Number: [facility] [place] [place] 09/30/2010 [id number] [employer]er Healthedgar Almarazjuan francisco Group Number: [id number] [id number] PayID: [id number] [place] [address] Medigap Part B Effective: Policy Number: Medicare Justin Guardado 07/31/2018 [id number] PayID: [id number] [address] [place] [address] Medigap Part B Effective: Policy Number: Medicare Justin Guardado 07/31/2018 [id number] PayID: [id number] [address] [place] [address] Problems Date Description Provider Status Onset: 10/28/2014 [...] to Gabbie Botello M.D. Active atherosclerosis of shawnee artery of limb Onset: 11/27/2016 Mild recurrent [...] on a diabetic diet Occupation working for [employer] Cigarette Use Former Cigarette Smoker ETOH Use Denies alcohol use Smoking Patient is a former smoker Allergies, Adverse Reactions, Alerts Date Description Reaction Status Severity Comments 05/02/2012 NKDA active Medications Medication Date Status Form Strength Qnty SIG Indications Ordering Provider Kingston Flores 07/11 Active Tablets 4mg 30tab 1-2 tab under R11.10 Yuki Julia Dispers s tongue every Hawkins, DEPUTY DIRECTOR 8 hours as needed Loperamide 02/22 Active Capsules 2mg 90cap 2 tabs at R19.7 Yuki Julia HCL s onset of Hawkins, DEPUTY DIRECTOR diarrhea and can repeat after each loose stool max 8 tabs daily Lancets 10/02 Active Misc Thin 30G 300un tests blood Gabbie Ultra Thin its glucose three [place], 30G times day - M.D. dx: e11.9 - last seen 08/29/17 Glipizide ER 06/19 Active Tablets ER 10mg 30tab 1 tab by [id number] 24HR s mouth every [place], day M.D. Freestyle 05/03 Active Strips 180un test 3x daily E11 Gabbie Insulinx its dx:e11.9 [place], Blood M.D. Glucose Test Strips Freestyle 02/05 Active Kit W/Device 1unit monitor blood Gabbie Insulinx s glucose [place], Blood fasting 3x M.D. Glucose daily Monitoring System Wellbutrin Active Tablets 300mg 1 po qd Unknown / Humalog Active Unknown Sertraline Active Tablets 100mg bid Unknown HCL / Lamotrigine Active Tablets 200mg 1 by mouth Unknown Dispers once daily Metformin Active Tablets 1000mg take one E11.65 Unknown HCL /0000 tablet by mouth twice a day Amlodipine Active Tablets 5mg 1 by mouth Unknown Besylate / every day Metformin 04/16 Hx Tablets 500mg 1 by mouth E11.65 daily [place], - M.D. 07/11 Lorazepam 11/27 Hx Tablets 1mg 90tab /-1 tab by F33.0 s mouth three [place], - times a day M.D. 07/11 as needed Glipizide ER 08/30 Hx Tablets ER 5mg 90tab 1 tab by E11.65 24HR s mouth every , - day M.D. 04/16 Dicyclomine 07/25 Hx Capsules 10mg 90cap 1 tab every 6 R15.2 Gabbie HCL /2015 s hours a [place], - needed M.D. 04/16 Reglan 05/03 Hx Tablets 10mg 30tab take 1 tablet R11.2 Doroteo J. s by mouth 3 [place], - times daily M.D. 06/19 as needed Lisinopril 12/05 Hx Tablets 20mg 30tab 1 by mouth E11.65 s every day [place], - M.D. 06/19 Pravastatin 05/16 Hx Tablets 20mg 90tab Take 1 Tablet E78.2 Paco F. Sodium s By Mouth [place], - Every Day M.D. 07/11 Maximum Daily 2018 Dose Of 1 Per Day Dicyclomine 05/05 Hx Capsules 10mg 90cap 1 tab every 6 R15.2 Gabbie HCL s hours a [place], - needed M.D. 01/16 Lisinopril 01/14 Hx Tablets 5mg 30tab 1 by mouth E11.65 s every day [place], - M.D. 12/05 Glipizide ER 10/28 Hx Tablets ER 10mg 30tab 1 tab by E11.65 24HR s mouth every [place], - day M.D. 08/30 Lantus 10/28 Hx Solution 100Unit/M 6unit 25 units in E11.65 Doroteo Chiu Pen-Inject L s the morning Breimaberenice, - and 50 units M.DAdrianna 06/19 at night /2015 Lantus 10/11 Hx Solution 100Unit/M 1mont inject 55 Doroteo Chiu Pen-Inject L h units q pm as Lazaro, - directed M.D. 10/28 Glipizide XL 04/04 Hx Tablets ER 5mg 30tab Take 1 Tablet Doroteo Nava /2013 24HR s By Mouth One [place], - Time Daily M.D. 01/08 Pravastatin 07/21 Hx Tablets 10mg 30tab 1 by mouth 272.2 Gabbie s every day [place], - M.DAdrianna 05/16 Bactrim DS 11/04 Hx Tablets 800-160mg 20tab 1 po bid x 10 682.3 s days may fill Rm, - w/ generic Afnp-C 11/18 Glipizide ER 11/04 Hx Tablets ER 5mg 30tab Take One 250.00 24HR s Tablet By Rm, - Mouth Once Afnp-C 10/28 Amoxicillin/ 05/02 Hx Tablets 875-125mg 20tab 1 bid w/ Yogesh TAdrianna Clavulanate /2011 s food. [place], Potassium - M.DAdrianna 09/02 Keflex 05/07 Hx Capsules 500mg 20cap 1 po bid Doroteo Nava /2010 s Mandi Willis M.D. 05/02 BD Pen 04/09 Hx 100un use twice a Doroteo Coates its day with Lazaro, 31GX5/16"_8m - lantus pen dx Gabrielle m 06/19 250.00 Vicodin 03/02 Hx Tablets 5-500mg 30tab 1 po q4hrs Doroteo Nava /2010 s prn Mandi Willis M.D. 05/02 Handicapped 02/21 Hx needs Doroteo Nava Parking handicapped Lazaro, - sticker for M.D. 01/11 3 mths due to back pain [place] 01/12 Hx use day Doroteo Nava Pen [place], - M.D. 09/02 Lantus 01/12 Hx Sopn 100Unit/M 15uni inject 55 Doroteo Nava Solostar /2010 L ts units under [place]az[place], - the skin M.D. 10/11 every evening as directed Ativan 04/06 Hx Tablets 0.5mg [...] 10 Doroteo Nava Optipen /2009 units at [facility], - night M.D. 02/21 Lantus Pen 01/25 Hx Misc 31GX5/16 100un syringes and Doroteo Nava [place]o /2009 its needles Laz[place], - M.D. 06/19 Pravachol 05/06 Hx Tabs 40mg 30tab Take One Doroteo Nava /2008 s Tablet By Lazaro, - Mouth AT M.D. 09/02 Bedtime Lexapro 04/25 Hx Tablets 10mg 30tab 1 po qd Doroteo Nava /2008 s Lazaro - M.DAdrianna 06/20 Penvk 03/18 Hx 500 20uni use bid x Doroteo Nava /2008 ts 10 days Mandi Willis M.DAdrianna 04/25 Vitamin B 02/04 Hx Capsules po qd [facility] 02/21 [facility] [place] Aspirin 02/[address] 81mg 1 po qd [facility] 05/05 [facility] [place] Metformin 05/08 Hx Tablets 1000mg 60tab take 1 tablet E11.65 Dorotoe LIMA /2008 s by mouth two Lazaro, - times daily M.D. 04/16 Chantix Hx 1unit as directed Doroteo Nava Starter / s [place], - M.D. 02/25 Lisinopril Hx Tablets 2.5mg 1 po qd Unknown /0000 - 01/25 Lexapro 00 Hx Tablets 10mg 30tab 1 po qd Unknown /0000 s - 01/12 Zoloft Hx Tablets 200mg 90tab 1 po qd Unknown /0000 s - 01/16 Lamictal 00 Hx Chewtabs 2mg Unknown /0000 - 07/21 Lamictal 00 Hx Tablets 200mg 1 po bid Unknown /0000 - 07/11 Imodium A-D Hx Tablets 2mg take 1 tablet Unknown /0000 by mouth - after loose 01/16 bowel movement then 1 tab after each additional episode as needed (mdd=4 tabs) Docusate 0000 Hx Capsules 100mg 1 by mouth Unknown Sodium /0000 twice a day - as needed 07/11 constipation Plavix 0000 Hx Tablets 75mg 1 by mouth Unknown /0000 every day - 07/11 Nicotine 0000 Hx Patches 14mg/24HR apply new Unknown Transdermal /0000 24HR patch daily System - 07/11 Vancomycin 00/00 Hx Solution Unknown /0000 - 07/11 Cephalexin 00/00 Hx Suspension Unknown /0000 Rec - 07/11 Vital Signs Date Vital Result Comment 07/11/2018 BP Systolic 112 mmHg BP Diastolic 68 mmHg Heart Rate 96 /min Body Temperature 98.2 F Respiratory Rate 17 /min Weight 181.50 lb 06/12/2018 BP Systolic 136 mmHg BP Diastolic [...] Result H/L Range Note Laboratory test finding 07/01/2018 Acetaminophen < 15 g/mL 1 Alcohol < 10 mg/dL <10 Salicylate < 2.50 mg/dL <30 TSH (Thyroid Stim Horm) 1.49 mcIU/mL 0.34-5.60 CBC Auto Diff 07/01/2018 White Blood Count 6.4 10^3/uL 3.5-10.8 Red Blood Count 3.62 10^6/uL Low 4.00-5.40 Hemoglobin 10.6 g/dL Low 14.0-18.0 Hematocrit 31 % Low 42-52 Mean Corpuscular Volume 85 fL 80-94 Mean Corpuscular Hemoglobin 29 pg 27-31 Mean Corpuscular HGB Conc 34 g/dL 31-36 Red Cell Distribution Width 13 % 10.5-15 Platelet Count 145 10^3/uL Low 150-450 Mean Platelet Volume 7.4 um3 7.4-10.4 Abs Neutrophils 4.7 10^3/uL 1.5-7.7 Abs Lymphocytes 0.8 10^3/uL Low 1.0-4.8 Abs Monocytes 0.6 10^3/uL 0-0.8 Abs Eosinophils 0.2 10^3/uL 0-0.6 Abs Basophils 0.1 10^3/uL 0-0.2 Abs Nucleated RBC 0 10^3/uL Granulocyte % 73.2 % 38-83 Lymphocyte % 12.8 % Low 25-47 Monocyte % 9.8 % High 0-7 Eosinophil % 3.2 % 0-6 Basophil % 1.0 % 0-2 Nucleated Red Blood Cells % 0.1 Comp Metabolic Panel 07/01/2018 Sodium 135 mmol/L 135-145 Potassium 4.9 mmol/L 3.5-5.0 Chloride 104 mmol/L 101-111 Co2 Carbon Dioxide 23 mmol/L 22-32 Anion Gap 8 mmol/L 2-11 Glucose 316 mg/dL High 70-100 Blood Urea Nitrogen 22 mg/dL 6-24 Creatinine 1.95 mg/dL High 0.67-1.17 BUN/Creatinine Ratio 11.3 8-20 Calcium 8.9 mg/dL 8.6-10.3 Total Protein 6.0 g/dL Low 6.4-8.9 Albumin 3.6 g/dL 3.2-5.2 Globulin 2.4 g/dL 2-4 Albumin/Globulin Ratio 1.5 1-3 Total Bilirubin 0.30 mg/dL 0.2-1.0 Alkaline Phosphatase 56 U/L 34-104 Alt 15 U/L 7-52 Ast 15 U/L 13-39 Egfr Non- 34.8 >60 Egfr 42.1 >60 2 Laboratory test finding 06/12/2018 Hemoglobin A1c (Fma) 9.2 % High 4.1- 5.7 Laboratory test finding 04/24/2018 Point of Care Glucose 234 mg/dL High 70 -100 3 Laboratory test finding 04/24/2018 Point of Care Glucose 232 mg/dL High 70 -100 4 Laboratory test finding 04/24/2018 Point of Care Glucose 281 mg/dL High 70 -100 5 Laboratory test finding 04/24/2018 Point of Care Glucose 331 mg/dL High 70 -100 6 Laboratory test finding 12/23/2017 Hemoglobin A1c (Fma) [...] 6.3 x10^3/UL 1.5-7.2 Lymph# 1.4 x10^3/UL 0.7-4.9 Meigs# 0.4 x10^3/UL 0.1-0.9 Gran % 76.6 % High 42.2-75.2 Lymph % 18.1 % Low 20.5-51.1 Meigs% 5.3 % 1.7-9.3 Laboratory test finding 08/29/2017 TSH 1.98 mIU/L 0.50-6.00 Free T4 1.25 ng/dL 0.75-1.54 Laboratory test 08/29/2017 Hemoglobin A1c 8.7 % High 4.1-5.7 finding (Fma) Laboratory test 06/19/2017 Hemoglobin A1c 7.8 % High 4.1-5.7 finding (Fma) Laboratory test 04/16/2017 Hemoglobin A1c 7.4 % High 4.1-5.7 finding (Fma) Laboratory test 03/08/2017 Hemoglobin A1c 8.5 % High Less than 6.0 7 finding (Glyco HGB) Laboratory test 03/08/2017 Stool For Blood SEE RESULT 8 finding BELOW Laboratory test 03/08/2017 Clotest SEE RESULT 9 finding BELOW Laboratory test 03/08/2017 Point of Care 154 mg/dL High 74-106 10 finding Glucose Comp Metabolic 03/08/2017 Sodium 134 mmol/L 133-145 Panel Potassium 5.2 mmol/L High 3.5-5.0 Chloride 103 [...] Egfr Non- 64.9 >60 Egfr 83.4 >60 11 Inr/Protime 03/08/2017 Inr 0.88 Low 0.89-1.11 CBC [...] finding 03/08/2017 Surgical Interface SEE RESULT BELOW 12 Order Laboratory test finding 11/30/2016 C Difficile PCR SEE RESULT BELOW 13 Comprehensive Metabolic 11/27/2016 Sodium 132 mEq/L Low 134-149 Prof Potassium 6.3 mEq/L High 3.6-5.5 14 Chloride 100 mEq/L 94-112 Carbon Dioxide 25 mEq/L 21-32 Glucose 469 mg/dL High 70-105 15 BUN 18 mg/dL 6-26 Creatinine 1.1 mg/dL [...] 6.1 x10^3/UL 1.5-7.2 Lymph# 0.8 x10^3/UL 0.7-4.9 Meigs# 0.3 x10^3/UL 0.1-0.9 Gran % 84.0 % High 42.2-75.2 Lymph % 11.5 % Low 20.5-51.1 Meigs% 4.5 % 1.7-9.3 Laboratory test finding 11/27/2016 Hemoglobin A1c (Fma) 8.8 % High 4.1- 5.7 Laboratory test finding 07/25/2016 Hemoglobin A1c (Fma) 7.9 % High 4.1- 5.7 Laboratory test finding 05/31/2016 Point of Care Glucose 231 mg/dL High 74 -106 16 Laboratory test finding 05/31/2016 Inr/Protime 0.99 0.89-1.11 [...] finding 05/31/2016 Troponin I 0.01 ng/mL <0.03 17 CKMB 05/31/2016 CKMB ng/mL 3.1 ng/mL 0.6-6.3 [...] Egfr Non- 61.3 >60 Egfr 78.9 >60 18 Potassium 5.2 mmol/L High 3.5-5.0 Anion Gap 7 mmol/L 2-11 Ast 17 U/L 13-39 Laboratory test finding 05/31/2016 Lipase 28 U/L 11.0-82.0 Creatine Kinase(CK) 74 U/L 10-223 C Reactive Protein 3.78 mg/L < 5.00 19 CBC Electronic (Fma) 05/03/2016 WBC 9.5 3.6-9.6 RBC 4.46 3.90-5.70 [...] Lyme IgG/IgM Ab <0.91 ISR 0.00- 0.90 20, 21 Lyme Disease Ab, Quant, IgM <0.80 index 0.00-0.79 20, 22 Comprehensive Metabolic Prof 05/03/2016 Sodium 140 mEq/L [...] finding 04/19/2016 Lactic Acid 0.9 mmol/L 0.5-2.0 23 Laboratory test finding 04/14/2016 Hemoglobin A1c (Fma) [...] mEq/L 134-149 Potassium 6.3 mEq/L High 3.6-5.5 24 Chloride 100 mEq/L 94-112 Carbon Dioxide 27 mEq/L 21-32 Glucose 571 mg/dL High 70-105 25 BUN 13 mg/dL 6-26 Creatinine 0.9 mg/dL [...] Quantitative < 200 ng/mL Less Than 230 26 Lactic Acid 2.6 mmol/L High 0.5-2.0 27 B Type Natriuretic Peptide 34 pg/mL 28 Comp Metabolic Panel 01/09/2016 Sodium 133 mmol/L [...] Egfr Non- 55.9 >60 Egfr 71.9 >60 29 Laboratory test finding 01/09/2016 Magnesium 1.9 mg/dL 1.9-2.7 Lipase 34 U/L 11.0-82.0 Creatine Kinase 116 U/L 10-223 C Reactive Protein 6.20 mg/L High < 5.00 30 Troponin I 0.01 ng/mL <0.03 31 CKMB 01/09/2016 CKMB ng/mL 4.5 ng/mL 0.6-6.3 [...] Egfr Non- 79.4 >60 Egfr 102.1 >60 32 Laboratory test finding 10/31/2015 C Reactive Protein 9.73 mg/L High < 5.00 33 CBC Auto Diff 10/31/2015 White Blood Count [...] Sed Rate 95 mm/Hr High 0- 20 Laboratory test finding 10/13/2015 Troponin I 0.02 ng/mL <0.03 34 Hemoglobin A1c (Glyco HGB) 7.4 % High Less than 6.0 35 Blood Culture SEE RESULT BELOW 36 Type & Screen 10/13/2015 Patient Blood Type A Positive Antibody Screen NEGATIVE Inr/Protime 10/13/2015 Inr 1.01 0.89-1.11 Laboratory test 10/13/2015 Point of Care 150 mg/dL High 74-106 37 finding Glucose Laboratory test 10/13/2015 Wound SEE RESULT BELOW 38 finding Culture/Sensi Tissue (BX) Culture & Gram St SEE RESULT BELOW 39 MRSA/S. aureus Ssti PCR SEE RESULT BELOW 40 Anaerobic Culture SEE RESULT BELOW 41 Mycobacterial Culture See Comment 42 Laboratory test finding 10/13/2015 Point of Care 281 mg/dL High 74-106 43 Glucose Laboratory test finding 10/13/2015 Troponin I 0.01 ng/mL <0.03 44 Body Fluid Cell Count 10/13/2015 Body Fluid Source Synovial Fluid 45 Body Fluid Appearance Bloody 45 Body Fluid Color (SEE NOTE) 45, 46 Body Fluid Volume 1.5 mL 45 Body Fluid WBC 25254 45 Body Fluid RBC 44806 45 Body Fluid Neutrophils 94 45 Body Fluid Other Cells 6 45 Body Fluid Total Cells Counted 100 45 Body Fluid Comment (SEE NOTE) 45, 47 Fluid Reviewed By MD (SEE NOTE) 45, 48 Laboratory test finding 10/13/2015 Body Fluid Culture SEE RESULT BELOW 49 (Bottles) Body Fluid Cell Count 10/13/2015 Body Fluid Source Synovial Fluid Body Fluid Appearance Cloudy Body Fluid Color Clute Body Fluid Volume 10 mL Body Fluid WBC TNP Body Fluid RBC TNP Body Fluid Neutrophils 93 Body Fluid Band 1 Body Fluid Lymph 5 Body Fluid Meigs 1 Body Fluid Total Cells Counted 100 Fluid Reviewed By MD (SEE NOTE) 50 Body Fluid Total Protein 10/13/2015 Total Protein, BF 1.4 g/dL 51 Fluid Source SYNOVIAL FLUID 52 Body Fluid Glucose 10/13/2015 Glucose, BF 323 mg/dL 53 Fluid Source SYNOVIAL 54 Comp Metabolic Panel 10/13/2015 Sodium 134 mmol/L [...] Egfr Non- 70.8 >60 Egfr 91.0 >60 55 Laboratory test finding 10/13/2015 Erythrocyte Sed Rate 86 mm/Hr High 0- 20 Wound Culture/Sensi SEE RESULT BELOW 56 CBC Auto Diff 10/13/2015 White Blood Count [...] Cells % 0 Laboratory test finding 10/13/2015 C Reactive Protein 16.59 mg/L High < 5.00 57 Laboratory test finding 09/08/2015 Hemoglobin A1c 8.4 % High 4.1-5.7 (Fma/CMC,CX) Comprehensive Metabolic 05/11/2015 Sodium 138 mEq/L 134-149 Prof Potassium 5.1 mEq/L 3.6-5.5 Chloride 104 mEq/L 94-112 Carbon Dioxide 27 mEq/L 21-32 Glucose 352 mg/dL High 70-105 58 BUN 13 mg/dL 6-26 Creatinine 0.9 mg/dL [...] 6.7 x10^3/UL 1.5-7.2 Lymph# 0.9 x10^3/UL 0.7-4.9 Meigs# 0.4 x10^3/UL 0.1-0.9 Gran % 82.3 % High 42.2-75.2 Lymph % 11.9 % Low 20.5-51.1 Meigs% 5.8 % 1.7-9.3 Laboratory test finding 05/11/2015 Hemoglobin A1c (a/CMC,CX) 9.0% % High 4.1-5.7 Ua - Micro (a) 05/11/2015 Appearance clear Color yellow Glucose, Urine (Fma/CMC/CTX) >=1000 High hx:dm Bilirubin neg Ketones neg SP Grav 1.025 Blood trace-lysed PH 7.0 Protein ssa=3+ Urobil 2.0 Nitrite neg Leukocytes (Fma/CMC/Centrex) neg Hyaline - /Lpf Granular - /Lpf WBC (a,Centrex) - RBC 2-3 Mucus (Fma/CBC/Centrex) sm amt /Lpf Epith rare /Lpf Bacteria - /Hpf Amorphous (Fma/CMC/Centrex) - /Lpf Crystals, Fluid (Fma/CMC/CTX) - Laboratory test finding 01/11/2015 Hemoglobin A1c (Fma/CMC,CX) 9.2 % High 4.1-5.7 Ua - Micro (a) 01/11/2015 Appearance clear Color yellow Glucose, Urine [...] mg/L High 0.5-37 finding (Fma/CMC/CTX) CBC Electronic ([facility]) 01/11/2015 WBC 7.6 3.6-9.6 RBC 5.10 3.90-5.70 [...] mEq/L 21-32 Glucose 155 mg/dL High 70-105 59 BUN 19 mg/dL 6-26 Creatinine 0.8 mg/dL [...] 30-70 LDL (Calculated) 176 CALC High 0-129 60 VLDL Cholesterol 55 mg/dL High 0-50 HDL Risk Factor 6.5 CALC High 0.0-4.4 Laboratory test finding 01/11/2015 LDL, Direct 170 mg/dL High 0-130 Comprehensive Metabolic Prof 10/05/2014 Sodium 135 mEq/L 134-149 Potassium 5.0 mEq/L 3.6-5.5 Chloride 95 mEq/L 94-112 Carbon Dioxide 28 mEq/L 21-32 Glucose 361 mg/dL High 70-105 61 BUN 16 mg/dL 6-26 Creatinine 0.8 mg/dL [...] x10^3/UL High 1.5-7.2 Lymph# 1.1 x10^3/UL 0.7-4.9 Meigs# 0.3 x10^3/UL 0.1-0.9 Gran % 82.0 % High 42.2-75.2 Lymph % 13.5 % Low 20.5-51.1 Meigs% 4.5 % 1.7-9.3 Laboratory test finding 10/05/2014 Hemoglobin A1c ([facility],CX) 12.4 % High 4.1-5.7 Sed Rate ([facility]/Centrex) 38 mm Laboratory test finding 07/21/2013 Hemoglobin A1c 9.7% % High 4.1-5.7 ([facility],CX) Comprehensive Metabolic 06/16/2013 Albumin 4.4 g/dL 3.8-5.5 Prof Alk. Phos. 64 U/L 22-95 Alt (SGPT) 20 U/L 10-40 Ast (Sgot) 17 U/L 5-34 BUN 12 mg/dL 6-26 Calcium 9.5 mg/dL 8.6-10.2 Chloride 105 mEq/L 94-112 Creatinine 0.9 mg/dL 0.6-1.4 Carbon Dioxide 27 mEq/L 21-32 Glucose 118 mg/dL High 70-105 62 Sodium 135 mEq/L 134-149 Total Bilirubin 0.4 [...] (Direct) 185 mg/dL High 0-130 CBC Electronic (Fma) 06/16/2013 WBC 8.4 3.6-9.6 RBC 5.19 3.90-5.70 Hemoglobin (Fma/CMC/CTX) 14.9 g/dL 12.1 - 17.2 Hematocrit (Fma/CMC/CTX) 44.5 % 36.1 - 50.3 Platelets 173 10^3/ul 150-400 Lymph% 19.1 Low 20.5-51.1 Mixed% 5.9 Neutrophils % 75.0 Mean Corpuscular Vol 86 82.2-97.4 Mean Corpuscular Hemoglobin 28.6 27.6-33.3 Mean Corpuscular Hemo Concen 33.4 32.0-36.0 RDW 12.0 11.6-13.7 Mean Platelet Volume 7.2 6.5-11.0 Urinalysis 03/12/2013 Urine Color Yellow Urine Appearance Clear Urine Specific [place] (SEE NOTE) 1.010-1.030 63 Urine Esterase Negative Negative Urine Nitrate Negative [...] Egfr Non- 115.4 >60 Egfr 148.4 >60 64 Laboratory test finding 03/12/2013 Creatine Kinase 67 U/L 0-200 Troponin I 0.04 ng/mL 0-0.06 65 Alcohol < 10 mg/dL Less Than 10 66 B Type Natriuretic Peptide 27.0 pg/mL 0-100 Laboratory test finding 03/10/2013 Hemoglobin A1c 8.9 % High 4.1-5.7 (Fma/CMC,CX) Laboratory test finding 12/02/2012 Glucose, Serum 192 mg/dL High 70-105 (Fma/CMC/CTX) Hemoglobin A1c (Fma/CMC,CX) 9.2 % High 4.1-5.7 Laboratory test 11/18/2012 Glucose, Serum 96 mg/dL 70-105 finding (Fma/CMC/CTX) Surgical Pathology 11/11/2012 S RUN DATE: 11/12/ <SEE NOTE> Laboratory test 11/04/2012 Glucose, [...] mEq/L 21-32 Glucose 429 mg/dL High 70-105 68 Sodium 134 mEq/L 134-149 Total Bilirubin 0.5 mg/dL 0.2-1.3 Total Protein 7.6 g/dL 6.3-8.1 Potassium 5.0 mEq/L 3.6-5.5 Globulin 3.0 g/dL 2.0-4.8 A/G Ratio 1.5 Calc 0.6-2.2 BUN/Creat Ratio 13.9 Calc 8.0-36.0 Laboratory test finding 09/02/2012 Hemoglobin A1c 14.0 % High 4.1-5.7 (a/CMC,CX) Basic Metabolic Profile 05/02/2012 BUN 13 mg/dL 6-26 Calcium 8.6 mg/dL 8.6-10.2 Chloride 91 mEq/L Low 94-112 69 Creatinine 0.9 mg/dL 0.6-1.4 Carbon Dioxide 25 mEq/L 21-32 Glucose 450 mg/dL High 70-105 70 Sodium 132 mEq/L Low 134-149 71 Potassium 4.3 mEq/L 3.6-5.5 BUN/Creat Ratio 15.7 Calc 8.0-36.0 Laboratory test finding 05/02/2012 Hemoglobin A1c (a/CMC,CX) 12.5 % High 4.1-5.7 Laboratory test finding 05/07/2011 Hemoglobin A1c (a/CMC,CX) 9.6 % High 4.1-5.7 Laboratory test finding 01/12/2011 Hemoglobin A1c (a/CMC,CX) 10.8 % High 4.1-5.7 CBC Electronic ([facility]) 01/12/2011 WBC 8.4 3.6-9.6 RBC 5.56 3.90-5.70 Hemoglobin (a/CMC/CTX) 16.3 g/dL 12.1 - 17.2 Hematocrit ([facility]/CMC/CTX) 48.3 % 36.1 - 50.3 Platelets 185 10^3/ul 150-400 Lymph% 13.6 Low 20.5-51.1 Mixed% 4.0 Neutrophils % 82.4 Mean Corpuscular Vol 87 82.2-97.4 Mean Corpuscular Hemoglobin 29.4 27.6-33.3 Mean Corpuscular Hemo Concen 33.8 32.0-36.0 RDW 11.3 Low 11.6-13.7 Mean Platelet Volume 8.1 6.5-11.0 Laboratory test finding 01/12/2011 TSH 1.63 mIU/L 0.50-6.00 Laboratory test finding 01/12/2011 Testosterone, Serum 406 ng/dL 193-740 Comp Metabolic Panel 06/07/2010 Sodium 137 mmol/L [...] > 60 eGFR 150.0 > 60 75 CBC With Electronic Diff 06/07/2010 White Blood [...] Eosinophils 0.2 0-0.6 Abs Basophils 0 0-0.2 76 Laboratory test finding 06/07/2010 Alcohol < 10.0 mg/dL None Detected 77 TSH 1.67 MIU/ML 0.34-5.60 Laboratory test 01/25/2010 Hemoglobin A1c 7.3 % High 4.1-5.7 finding (a/[facility],CX) Laboratory test 02/04/2009 Hemoglobin A1c 7.8 % High 4.1-5.7 finding (a/[facility],CX) Laboratory test 02/04/2009 TSH 1.79 mIU/L 0.50-6.00 78 finding Complete Blood Count 02/04/2009 WBC 5.2 x10^3/uL 3.6-9.6 78 Gran# 3.5 x10^3/uL 1.5-7.2 78 Gran% 67.5 % 42.2-75.2 78 HCT 49 % 36-50 78 HGB 17.4 g/dL High 12.1-17.2 78 Lymph# 1.3 x10^3/uL 0.7-4.9 78 Lymph% 25.0 % 20.5-51.1 78 MCH 33.2 pg 27.6-33.3 78 MCV 94.2 fL 82.2-97.4 78 MCHC 35.3 g/dL 33.0-35.5 78 Mo# 0.4 x10^3/uL 0.1-0.9 78 Mo% 7.5 % 1.7-9.3 78 MPV 7.8 fL 7.4-10.4 78 PLT 132 x10^3/uL Low 150-400 78, 79 RBC 5.22 x10^6/uL 3.90-5.70 78 RDW 11.7 % 11.6-13.7 78 Lipid Profile 02/04/2009 Cholesterol 227 mg/dL High 120-200 78 HDL 59 mg/dL 30-70 78 Triglycerides 241 mg/dL High 30-200 78 HDL Risk Factor 3.9 CALC Low 4.2-7.0 78 LDL (Calculated) 120 CALC 0-129 78 VLDL (Calculated) 48 mg/dL 0-50 78 Comprehensive Metabolic Prof 02/04/2009 Albumin 4.2 g/dL 3.8-5.5 78 Alk. Phos. 55 U/L 22-95 78 Alt (SGPT) 55 U/L High 10-40 78 Ast (Sgot) 46 U/L High 5-34 78 BUN 10 mg/dL 6-26 78 Calcium 9.7 mg/dL 8.6-10.2 78 Chloride 100 mEq/L 94-112 78 Creatinine 0.8 mg/dL 0.6-1.4 78 Carbon Dioxide 32 mEq/L 21-32 78 Glucose 283 mg/dL High 70-105 78, 80 Sodium 137 mEq/L 134-149 78 Total Bilirubin 0.6 mg/dL 0.2-1.3 78 Total Protein 7.1 g/dL 6.3-8.1 78 Potassium 5.3 mEq/L 3.6-5.5 78 Globulin 3.0 g/dL 2.0-4.8 78 A/G Ratio 1.4 Calc 0.6-2.2 78 BUN/Creat Ratio 12.7 Calc 8.0-36.0 78 1 Therapeutic concentration: <50 ug/mL Toxic concentration: >120 ug/mL 2 Because ethnic data is not always [...] 5 Kidney failure <15 (or dialysis) 3 Nub Card Tender: [id number] 4 Nub Card Tender: [id number] 5 Nub Card Tender: [id number] 6 Nub Card Tender: [id number] 7 Therapeutic target for the treatment of diabetes Mellitus patients is <7% HBA1C, and in selective patients <6.0%.Please refer to [place] [employer] Diabetic care guidelines for further information. 8 SEE RESULT BELOW Name: PRICE GUARDADO : [address]: Raul Farris MD Acct: [id number] Unit: [id number] AGE: 61 Location: ENDO Re03/08/17 SEX: M Status: REG REF SPEC: [id number] GABO: 03/08/17-[address]: Raul Farris MD REQ: [id number] RECD: 03/08/17-1224 STATUS: DOLORES CARLOS DR: Gabbie Botello MD _ SOURCE: STOOL SPDESC: ORDERED: Occult Bl, Diag Procedure Result Reported Site Stool Occult Blood (1) Final 03/08/17- 1249 ML Stool Occult Blood Negative Collection Date (1) 03/08/17 * ML - MAIN LAB ([facility]) . END OF REPORT * ML=Testing performed at Main Lab DEPARTMENT OF PATHOLOGY, [address] [place] [address] Vinayak Yanez M.D. Director [facility] # [id number] 9 SEE RESULT BELOW Name: PRICE GUARDADO : [address]: Raul Farris MD Acct: [id number] Unit: [id number] AGE: 61 Location: ENDO Re03/08/17 SEX: M Status: REG REF SPEC: [id number] GABO: 03/08/17-11[address] [facility] [address]: Raul Farris MD REQ: [id number] RECD: 03/08/17-1226 STATUS: DOLORES CARLOS DR: Gabbie Botello MD _ SOURCE: GAS ANTRUM SPDESC: ORDERED: Clotest Procedure Result Reported Site Clotest Final 03/09/17- 748 ML Clotest Negative * ML - MAIN LAB ([facility]) . END OF REPORT * ML=Testing performed at Main Lab DEPARTMENT OF PATHOLOGY, [address] [place] [address] Vinayak Yanez M.D. Director [facility] # [id number] 10 Nub Card Tender: [id number] 11 Because ethnic data is not always [...] 5 Kidney failure <15 (or dialysis) 12 SEE RESULT BELOW Name: PRICE GUARDADO : [address]: Raul Farris MD Acct: [id number] Unit: [id number] AGE: 61 Location: ENDO Re03/08/17 SEX: M Status: DEP REF SPEC: [id number] GABO: 03/08/17-59[address] [facility] [address]: Raul Farris MD REQ: [id number] RECD: 03/08/17-500 STATUS: DARIANA CARLOS DR: Gabbie Botello MD _ ORDERED: LEVEL 4/3 FINAL DIAGNOSIS [...] performed at Main Lab DEPARTMENT OF PATHOLOGY, [address] [place] [address] Vinayak Yanez M.D. Director [facility] # [id number] RUN DATE: 03/11/17 [facility] LAB LIVE PAGE 2 Patient: SHOJUAN FRANCISCOPRICE [id number] (Continued) GROSS DESCRIPTION (Continued) GROSS DESCRIPTION (Continued) [...] performed at Main Lab DEPARTMENT OF PATHOLOGY, [address] [place] [address] Vinayak Yanez M.D. Director [facility] # [id number] 13 SEE RESULT BELOW Name: PRICE GUARDADO : [address]: Gabbie Botello MD Acct: [id number] Unit: [id number] AGE: 61 Location: [facility] Re11/30/16 SEX: M Status: REG REF SPEC: [id number] GABO: 11/30/16-6[address] [facility] [address]: Gabbie Botello MD REQ: [id number] RECD: 11/30/16-1024 STATUS: COMP [facility] DR: Rosalva Tinoco [facility] _ SOURCE: STOOL SPDESC: ORDERED: C. [...] performed at Main Lab DEPARTMENT OF PATHOLOGY, [address] [place] [address] Vinayak Yanez M.D. Director [facility] # [id number] Patient: PRICE GUARDADO [id number] (Continued) Specimen: [id number] Collected: 11/30/16 Received: 11/30/16 (Continued) Procedure Result [...] is requested. Contact the Microbiology Department at [phone]. TEST LIMITATIONS: As with all diagnostic procedures, [...] not recommended. * ML - MAIN LAB ([facility]) . END OF REPORT * ML=Testing performed at Main Lab DEPARTMENT OF PATHOLOGY, [address] [place] [address] Vinayak Yanez M.D. Director [facility] # [id number] 14 RESULTS VERIFIED BY REPEAT ANALYSIS 15 RESULTS VERIFIED BY REPEAT ANALYSIS 16 Nub Card Tender: [id number] TENZIN OGMEZ 17 Reference Range and Interpretation: TnI (ng/mL) Interpretation Less Than 0.03 ng/mL Not supportive of diagnosis of [place] 0.03 - 0.50 ng/mL Indeterminate: suggest serial studies if clinically indicated. Greater than 0.5 ng/mL Consistent with diagnosis of [place] 18 Because ethnic data is not always readily [...] 15-29 5 Kidney failure <15 (or dialysis) 19 Acute inflammation: >10.00 20 1 SST 21 Negative <0.91 Equivocal 0.91 - 1.09 Positive >1.09 22 Negative <0.80 Equivocal 0.80 - 1.19 Positive >1.19 IgM levels may peak at 3-6 weeks post infection, then gradually decline. 23 [facility] Severe Sepsis and Septic Shock Management Bundle Measure requires all lactic acids initially measuring >2.0 mmol/L be repeated. 24 RESULTS VERIFIED BY REPEAT ANALYSIS 25 RESULTS VERIFIED BY REPEAT ANALYSIS 26 Please note: The following may produce a false positive D Dimer test: - Rheumatoid factor greater than 60 IU/ml - Plasma hemoglobin greater than 0.05 gm/dl - Bilirubin greater than 50 mg/dl - Lipids greater than 1000 mg/dl - FDP greater than 20 ug/ml 27 Critical Result LACT:2.6 Called to [id number] at: 17:51:37 by:[id number] Read back by:[id number] [facility] Severe Sepsis and Septic Shock Management Bundle Measure requires all lactic acids initially measuring >2.0mmol/L be repeated. 28 >100 to <200 pg/mL: likely compensated congestive heart failure (CHF) 200 to 400 pg/mL: likely moderate CHF >400 pg/mL: likely moderate to severe CHF 29 Because ethnic data is not always readily [...] 15-29 5 Kidney failure <15 (or dialysis) 30 Acute inflammation: >10.00 31 Reference Range and Interpretation: TnI (ng/mL) Interpretation Less Than 0.03 ng/mL Not supportive of diagnosis of TN 0.03 - 0.50 ng/mL Indeterminate: suggest serial studies if clinically indicated. Greater than 0.5 ng/mL Consistent with diagnosis of TN 32 Because ethnic data is not always readily [...] 15-29 5 Kidney failure <15 (or dialysis) 33 Acute inflammation: >10.00 34 Reference Range and Interpretation: TnI (ng/mL) Interpretation Less Than 0.03 ng/mL Not supportive of diagnosis of TN 0.03 - 0.50 ng/mL Indeterminate: suggest serial studies if clinically indicated. Greater than 0.5 ng/mL Consistent with diagnosis of TN 35 Therapeutic target for the treatment of diabetes Mellitus patients is <7% HBA1C, and in selective patients <6.0%.Please refer to [place] [employer] Diabetic care guidelines for further information. 36 SEE RESULT BELOW Name: PRICE GUARDADO : [address]: Jessie Lazar MD Acct: [id number] Unit: [id number] AGE: 60 Location: [place] [address]- Re10/13/15 SEX: M Status: ADM IN SPEC: [id number] GABO: 10/13/15 [facility] [address]: Jackie Dockery MD REQ: [id number] RECD: 10/13/15 STATUS: DOLORES CARLOS DR: Gabbie Botello MD _ SOURCE: BLOOD,VENO SPDES: ORDERED: Blood Cult Procedure Result Reported Site Aerobic Culture Bottle Final 10/18/15- 934 ML No Growth Day 5 Anaerobic Culture Bottle Final 10/18/15- 934 ML No Growth Day 5 * ML - MAIN LAB ([facility]) . END OF REPORT * ML=Testing performed at Main Lab DEPARTMENT OF PATHOLOGY, [address] [place] [address] Vinayak Yanez M.D. Director [facility] # [id number] 37 Nub Card Tender: [id number] FERNANDO PETTIT 38 SEE RESULT BELOW Name: PRICE GUARDADO Arcenio : [address]: Jessie Lazar MD Acct: [id number] Unit: [id number] AGE: 60 Location: [facility] Re10/13/15 SEX: M Status: REG SDC SPEC: [id number] GABO: 10/13/15-16[address] [facility] [address]: Jessie Lazar MD REQ: [id number] RECD: 10/13/15 STATUS: RES OTHR DR: Gabbie [...] Direct PENDING * ML - MAIN LAB ([facility]) . END OF REPORT * ML=Testing performed at Main Lab DEPARTMENT OF PATHOLOGY, [address] [place] [address] Vinayak Yanez M.D. Director [facility] # [id number] 39 SEE RESULT BELOW Name: PRICE GUARDADO : [address]: Jessie Lazar MD Acct: [id number] Unit: [id number] AGE: 60 Location: [address] Re10/13/15 Dis: 10/19/15 SEX: M Status: DIS IN SPEC: [id number] GBAO: 10/13/15-[address]: Jessie Lazar MD REQ: [id number] RECD: 10/13/15 STATUS: COMP OTHR DR: Gabbie Botello MD _ SOURCE: WOUND SPDESC:KNEE LEFT ORDERED: Tissue Cult/GS/R, Fungal - Other/R, Acid Fast Stain/U COMMENTS: CLOSTRIDIUM FINDINGS IN ADDITION TO S. AUREUS: Verbal to DR. BOTELLO by [id number] at 1411 on 10/15/15. Results read back [...] performed at Main Lab DEPARTMENT OF PATHOLOGY, [address] [place] [address] Vinayak Yanez M.D. Director [facility] # [id number] Patient: PRICE GUARDADO [id number] (Continued) Specimen: [id number] Collected: 10/13/15 Received: 10/13/15-175 (Continued) Procedure Result Reported Site Acid Fast Stain - Direct Final (continued) 10/14/15- 08 Due to limited sensitivity of the smear, results should be used as an adjunct in evaluating the patient's status and cultural examination is highly recommended for diagnosis. * ML - MAIN LAB ([facility]) . END OF REPORT * ML=Testing performed at Main Lab DEPARTMENT OF PATHOLOGY, [address] [place] [address] Vinayak Yanez M.D. Director [facility] # [id number] 40 SEE RESULT BELOW Name: PRICE GUARDADO : [address]: Jessie Lazar MD Acct: [id number] Unit: [id number] AGE: 60 Location: [facility] 338-01 Re10/13/15 SEX: M Status: ADM IN SPEC: [id number] GABO: 10/13/15-[address]: Jessie Lazar MD REQ: [id number] RECD: 10/13/15 STATUS: RES OTHR DR: Gabbie Botello MD _ SOURCE: WOUND SPDESC:KNEE LEFT ORDERED: Anaerobic Cult/R, MRSA/SA SSTI/R, Culture Stain/R, Fungal - Other /R, Acid Fast Stain/U COMMENTS: Verbal to GEMINI CHAWLA by [id number] at 2020 on 10/13/15. Results read back [...] performed at Main Lab DEPARTMENT OF PATHOLOGY, [address] [place] [address] Vinayak Yanez M.D. Director [facility] # [id number] Patient: PRICE GUARDADO [id number] (Continued) Specimen: [id number] Collected: 10/13/15 Received: 10/13/15 (Continued) Procedure Result Reported Site Acid Fast Stain - Direct Final (continued) 10/14/15 96 Due to limited sensitivity of the smear, results should be used as an adjunct in evaluating the patient's status and cultural examination is highly recommended for diagnosis. * ML - MAIN LAB ([facility]) . END OF REPORT * ML=Testing performed at Main Lab DEPARTMENT OF PATHOLOGY, [address] [place] [address] Vinayak Yanez M.D. Director [facility] # [id number] 41 SEE RESULT BELOW Name: PRICE GUARDADO : [address]: Jessie Lazar MD Acct: [id number] Unit: [id number] AGE: 60 Location: [facility] 338-01 Re10/13/15 Dis: 10/19/15 SEX: M Status: DIS IN SPEC: [id number] GABO: 10/13/15-1640 [facility] [address]: Jessie Lazar MD REQ: [id number] RECD: 10/13/15155 STATUS: COMP ILANA DR: Gabbie Botello MD _ SOURCE: WOUND SPDESC:KNEE LEFT ORDERED: Anaerobic Cult/R, MRSA/SA SSTI/R, Culture Stain/R, Fungal - Other /R, Acid Fast Stain/U COMMENTS: Verbal to GEMINI CHAWLA by [id number] at 2020 on 10/13/15. Results read back accurately. CLOSTRIDIUM FINDINGS IN ADDITION TO S. AUREUS: Verbal to DR. BOTELLO by [id number] at 1411 on 10/15/15. Results read back [...] performed at Main Lab DEPARTMENT OF PATHOLOGY, [address] [place] [address] Vinayak Yanez M.D. Director [facility] # [id number] Patient: PRICE GUARDADO [id number] (Continued) Specimen: [id number] Collected: 10/13/15 Received: 10/13/15 (Continued) Procedure Result [...] These antibiotics are not available in the [facility] Formulary Contact the Microbiology Department for any additional antibiotic reporting. Fungal Cult - Other Sources Final 11/14/15- 1427 ML Fungal Culture No Growth of Mycotic Organisms 4 weeks Acid Fast Stain - Direct Final 10/14/15- 0810 ML CONTINUED ON NEXT PAGE * ML=Testing performed at Main Lab DEPARTMENT OF PATHOLOGY, [address] [place] [address] Vinayak Yanez M.D. Director [facility] # [id number] Patient: PRICE GUARDADO [id number] (Continued) Specimen: [id number] Collected: 10/13/15-1639 Received: 10/13/15175 (Continued) Procedure Result Reported Site Acid Fast Stain - Direct Final (continued) 10/14/15- 809 AFB Smear Result No Acid Fast Bacillus Present (Negative) Preparation By Direct Smear Due to limited sensitivity of the smear, results should be used as an adjunct in evaluating the patient's status and cultural examination is highly recommended for diagnosis. * ML - MAIN LAB ([facility]) . END OF REPORT * ML=Testing performed at Main Lab DEPARTMENT OF PATHOLOGY, [address] [place] [address] Vinayak Yanez M.D. Director [facility] # [id number] 42 SOURCE: KNEE, KNEE WOUND SWAB MYCOBACTERIAL CULTURE FINAL No growth after 60 days of incubation. Test Performed by: [facility] [place] [address] Account Processor: Cam Isidro II, M.D., Ph.D. 43 RN to be notified Nub Card Tender: [id number] JERMAN BRANHAM 44 Reference Range and Interpretation: TnI (ng/mL) Interpretation Less Than 0.03 ng/mL Not supportive of diagnosis of TN 0.03 - 0.50 ng/mL Indeterminate: suggest serial studies if clinically indicated. Greater than 0.5 ng/mL Consistent with diagnosis of TN 45 Comment: L knee, second specimen in EDTA tube 46 Red 47 Differential performed on concentrated smear. 48 Acute inflammation. Recommend correlation with microbiology culture studies. Reviewed by Abby Ellis MD 49 SEE RESULT BELOW Name: PRICE GUARDADO : [address]: Jessie Lazar MD Acct: [id number] Unit: [id number] AGE: 60 Location: [place] [address]- Re10/13/15 SEX: M Status: ADM IN SPEC: [id number] GABO: 10/13/15 [facility] [address]: Jackie Dockery MD REQ: [id number] RECD: 10/13/15 STATUS: DOLORES CARLOS DR: Gabbie Botello MD _ SOURCE: JOINT FLUI SPDESC: ORDERED: BF Cult Bottles Procedure Result Reported Site BF Aerobic Culture Bottle Final 10/18/15- 0434 ML No Growth Day 5 BF Anaerobic Culture Bottle Final 10/18/15- 0434 ML No Growth Day 5 * ML - [facility] ([facility]) . END OF REPORT * ML=Testing performed at [facility] DEPARTMENT OF PATHOLOGY, [address] [place] [address] Vinayak Yanez M.D. Director [facility] # [id number] 50 Acute inflammation. Recommend correlation with microbiology culture studies. Reviewed by Abby Ellis MD 51 REFERENCE VALUE Not Applicable 52 Test Performed by: [place] [address] Account Processor: Cam Isidro II, M.D., Ph.D. 53 REFERENCE VALUE Not Applicable 54 Test Performed by: [place] [address] Account Processor: Cam Isidro II, M.D., Ph.D. 55 Because ethnic data is not always readily [...] 15-29 5 Kidney failure <15 (or dialysis) 56 SEE RESULT BELOW Name: PRICE GUARDADO : [address]: Jessie Lazar MD Acct: [id number] Unit: [id number] AGE: 60 Location: [place] [address] Re10/13/15 SEX: M Status: ADM IN SPEC: [id number] GABO: 10/13/15 [facility] [address]: Jackie Dockery MD REQ: [id number] RECD: 10/13/153 STATUS: DOLORES CARLOS DR: Gabbie Botello MD _ SOURCE: MISC SOURC SPDESC:KNEE LEFT ORDERED: Culture Stain COMMENTS: Comment: Left knee laceration swab CORRECTED RESULT: Verbal to [id number] by [id number] at 0822 on 10/13/15. Results read back accurately. CLOSTRIDIUM FINDINGS IN ADDITION TO S. AUREUS: Verbal to DR. BOTELLO by [id number] at 1411 on 10/15/15. Results read back [...] performed at Main Lab DEPARTMENT OF PATHOLOGY, [address] [place] [address] Vinayak Yanez M.D. Director [facility] # [id number] Patient: PRICE GUARDADO [id number] (Continued) Specimen: [id number] Collected: 10/13/15 Received: 10/13/15 (Continued) Procedure Result [...] These antibiotics are not available in the [facility] Formulary Contact the Microbiology Department for any additional antibiotic reporting. * ML - MAIN LAB ([facility]) . END OF REPORT * ML=Testing performed at Main Lab DEPARTMENT OF PATHOLOGY, [address] [place] [address] Vinayak Yanez M.D. Director [facility] # [id number] 57 Acute inflammation: >10.00 58 RESULTS VERIFIED BY REPEAT ANALYSIS 59 consistent w/ previous results 60 INVALID 61 RESULTS VERIFIED BY REPEAT ANALYSIS 62 RESULT SUN'D 63 GREATER THAN 1.060 64 Because ethnic data is not always readily [...] 15-29 5 Kidney failure <15 (or dialysis) 65 Reference Range and Interpretation: TnI (ng/mL) Interpretation Less Than 0.06 ng/mL Not supportive of diagnosis of [place] 0.06 - 0.50 ng/mL Indeterminate: suggest serial studies if clinically indicated. Greater than 0.5 ng/mL Consistent with diagnosis of [place] 66 The detection limit for Ethanol is 10.0 mg/dl . Values less than 10.0 mg/dl cannot be accurately measured. 67 RUN DATE: 11/12/12 [facility] LAB LIVE PAGE 1 RUN TIME: [address] [place] [address] Specimen Inquiry Name: PRICE GUARDADO : [address]: Eliot Valiente MD Acct: [id number] Unit: [id number] AGE: 57 Location: ENDO Re11/11/12 SEX: M Status: REG REF SPEC: [id number] GABO: 11/11/12- SUBM DR: Eliot Valiente MD REQ: [id number] RECD: 11/11/12 STATUS: DARIANA CARLOS DR: Doroteo [...] performed at Main Lab DEPARTMENT OF PATHOLOGY, [address] [place] [address] Vinayak Yanez M.D. Director [facility] Permit #[id number] 68 results sun'd and triaged provider 69 RESULT SUN'D 70 RESULT SUN'D MD AWARE 71 RESULT SUN'D 72 Anion gap measurement may be of limited value in the presence of any alkalosis, especially in a combined acid base disorder. . 73 Note change in reference range as of 05/20/08. The change was based on recommendations from the [place] [employer]. 74 A metabolite of Naproxen, O-desmethylnaproxen, has been shown to interfere with the Jendrassik-Tyrone method for measuring total bilirubin. Samples from [...] 5 Kidney failure <15 (or dialysis) 76 Lymphopenia % H H Check Failed 77 The detection limit for ETHANOL is 10.0 mg/dl . Values less than 10.0 mg/dl cannot be accurately measured. . 78 FASTING 79 results rechecked 80 RESULTS RECKD' Procedures Date CPT Code Description Status 06/12/2018 24079 Finger Or Heel Stick Completed 12/23/2017 38660 Finger Or Heel Stick Completed 06/19/2017 30688 Finger Or Heel Stick Completed 04/16/2017 84180 Finger Or Heel Stick Completed 03/30/2017 Diabetic Retinal Eye Exam Completed 07/25/2016 88556 Finger Or Heel Stick Completed 04/19/2016 91758 Makenzie-Noninvasive physiologic studies of upper or lower Completed extremity 09/08/2015 75750 Finger Or Heel Stick Completed 07/21/2013 17545 Finger Or Heel Stick Completed 03/10/2013 15617 Finger Or Heel Stick Completed 12/02/2012 44920 Finger Or Heel Stick Completed 11/18/2012 55603 Finger Or Heel Stick Completed 11/11/2012 Colonoscopy Completed 11/04/2012 19940 Finger Or Heel Stick Completed 10/02/2012 55600 Finger Or Heel Stick Completed Encounters Type Date Location Provider CPT E/M Dx Office Visit 07/11/2018 3:45p [place] [address] R19.7 R11.10 Office Visit 06/12/2018 3:40p [place] [address] M86.172 E11.65 I73.9 Office Visit 04/28/2018 3:15p Main Office Cas Robert 73758 E11.65 I73.9 Office Visit 02/22/2018 11:20a Main Office Gabbie Botello M.D. 86261 R19.7 F33.0 I70.213 G40.89 E11.65 Z12.11 Office Visit 12/23/2017 12:00p Main Office Gabbie Botello M.D. 20906 E11.65 G25.0 E78.2 Z12.11 Office Visit 08/20/2017 1:20p [facility] Gabbie Botello M.D. 43112 E11.65 E78.2 F33.0 G25.0 Office Visit 06/19/2017 10:40a [facility] Gabbie Botello M.D. 43399 E11.65 E78.2 F33.0 I70.213 G25.0 G40.89 M25.511 Office Visit 04/16/2017 1:30p Main Office Gabbie Botello M.D. 04218 E11.65 E78.2 F33.0 I70.213 Office Visit 01/15/2017 2:40p Main Office Gabbie Botello M.D. 03681 E11.65 E78.2 R11.10 F33.0 Office Visit 11/27/2016 1:00p [facility] Gabbie Botello M.D. 23786 E11.65 E78.2 F33.0 R11.10 R19.7 G25.0 Office Visit 07/25/2016 1:40p [facility] Gabbie Botello M.D. 49075 E11.65 E78.2 I70.213 R19.7 Office Visit 06/19/2016 10:00a Main Office Heidi Rm Afnp-C 32725 M79.671 R23.8 Office Visit 05/03/2016 5:00p Main Office Gabbie Botello M.D. 68960 E11.65 R11.2 Office Visit 04/14/2016 9:00a Main Office Katharina Chiara Afnp-C 59457 E11.65 R53.83 M79.604 M79.605 R11.2 E78.1 Office Visit 01/17/2016 1:40p Main Office Gabbie Botello M.D. 63281 E11.65 E78.2 Z71.6 F17.210 Office Visit 12/08/2015 5:00p Main Office Gabbie Botello M.D. 08929 E11.65 E78.2 Office Visit 09/08/2015 5:20p Main Office Gabbie Botello M.D. 84593 E11.65 R15.2 Office Visit 07/07/2015 6:40p Main Office Gabbie Botello M.D. 60522 E11.65 E78.2 R15.2 Office Visit 05/05/2015 8:00p Main Office Gabbie BotelloGabrielle 43789 250.82 272.2 787.63 Office Visit 01/11/2015 10:10a Main Office Gabbie Botello Gabrielle 32430 784.7 787.63 250.00 Office Visit 01/06/2015 5:00p Main Office Gabbie BotelloGabrielle 21137 250.82 272.2 791.0 272.1 Office Visit 10/28/2014 7:30p Main Office Gabbie Botello Gabrielle 02950 250.82 272.2 Office Visit 10/05/2014 10:30a Main Office Katharina Guadarrama Afnp-C 21944 250.82 787.91 250.00 Office Visit 07/21/2013 1:00p Main Office Heidi Abdalla Afnp-C 77201 250.00 333.1 272.2 Office Visit 03/10/2013 1:00p Main Office Heidi Abdalla Afnp-C 14898 250.00 729.5 Office Visit 12/02/2012 1:15p Main Office Heidi Abdalla Afnp-C 26100 250.00 Office Visit 11/18/2012 12:00p Main Office Heidi Abdalla, Afnp-C 24799 250.00 Office Visit 11/04/2012 1:00p Main Office Heidi Abdalla Afnp-C 90174 250.00 682.3 Office Visit 10/02/2012 1:15p Main Office Heidi Abdalla Afnp-C 65535 250.02 788.34 Office Visit 09/02/2012 1:15p Main Office Heidi Abdalla Afnp-C 48502 250.02 Office Visit 05/02/2012 10:00a Main Office Yogesh Hutton M.D. 08987 682.3 250.00 Office Visit 05/07/2011 11:00a Main Office Doroteo Willis M.D. 23777 782.1 250.00 Office Visit 03/02/2011 11:20a Main Office Doroteo Willis M.D. 42794 723.1 724.5 Office Visit 02/21/2011 1:20p Main Office Doroteo Willis M.D. 72664 723.1 724.5 955.2 368.2 Office Visit 01/12/2011 9:40a Main Office Doroteo Willis M.D. 64458 311 250.00 780.79 Office Visit 04/06/2010 10:00a Main Office Doroteo Willis M.D. 91354 311 300.00 Office Visit 03/10/2010 11:20a Main Office Doroteo Willis M.D. 92065 311 Office Visit 01/25/2010 1:20p Main Office Doroteo Willis M.D. 68157 250.00 434.91 Office Visit 06/20/2009 1:00p Main Office Doroteo Willis M.D. 09031 311 434.91 Office Visit 04/25/2009 9:40a Main Office Doroteo Willis M.D. 34379 311 Office Visit 03/18/2009 11:00a Main Office Doroteo Willis M.D. 17643 523.01 Office Visit 02/25/2009 11:00a Main Office Doroteo Willis M.D. 21034 250.00 Office Visit 02/04/2009 9:40a Main Office Doroteo Willis M.D. 89385 V77.1 V77.0 V77.91 V78.1 250.00 305.1 Plan of Care Future Appointment(s):09/01/2018 9:30 am - Gabbie Botello M.D. at Main [id number] 11:00 am - Gabbie Botello M.D. at Main Qamyjf4307/11/2018 - Yuki Hawkins, NPR19.7 Diarrhea, unspecifiedNew Labs:C Diff A+B Toxin Stool QLCulture Stool & O&PComments:Imodium: Take 2 tablets (4mg total) after next episode of diarrheaTake 1 tablet (2mg) with each subsequent episodeMaximum of 8 tablets (16mg)Drink lots of clear fluidsBland dietRemember good handwashing If worsening or not improving, contact office or seek medical care. With antibiotic use, diarrhea is common because you kill the good bacteria along with the bad bacteria that was causing your illness. Try to replace the good bacteria with the following: proboticsyogurtKombuchaKiefer YnqompAsdkW85.10 Vomiting, unspecifiedNew Medication:Zofran Odt 4 mgAllComments:~B_~U_Medication Management~b_~u_ Patient Understands medications he 's taking? Yes No Are there Barriers to Adherence? Yes No Has the patient been asked about herbal supplements and therapies, and OTC meds? Yes No ~B_~U_Care Plan~b_~u_1. Patient has been queried about patient's goals/preferences and functional/lifestyle goals at relevant visits. If relevant, describe: na2. Treatment goals as explained to the patient: above3. Are there barriers to meeting treatment goals? Yes No If Yes, please describe: polypharmacy4. Self-Management goals as described to the patient: Yes NoAs always, we strongly encourage a healthy diet and making physical activity a part of your every day life. If you have questions about how or where to start , please contact the office.Follow up:Please schedule a full preventative well visit at your earliest convenience Please contact front office staff to set up the online patient portal
[2018-07-25 10:06] LABS: ABS Basophils 0.1 10^3/ul (0-0.2); ABS Eosinophils 0.3 10^3/ul (0-0.6); ABS Lymphocytes 0.8 10^3/ul (1.0-4.8); ABS Monocytes 0.7 10^3/ul (0-0.8); ABS Neutrophils 5.5 10^3/ul (1.5-7.7); ABS Nucleated RBC 0 10^3/ul; Eosinophil % 3.6 % (0-6); Hematocrit 33 % (42-52); Hemoglobin 11.9 g/dl (14.0-18.0); Lymphocyte % 10.8 % (25-47); Mean Corpuscular HGB Conc 36 g/dl (31-36); Mean Corpuscular Hemoglobin 30 pg (27-31); Mean Corpuscular Volume 84 fL (80-94); Mean Platelet Volume 7.1 um3 (7.4-10.4); Nucleated Red Blood Cells % 0.1; Platelet Count 158 10^3/ul (150-450); Red Blood Count 3.99 10^6/ul (4.00-5.40); Red Cell Distribution Width 14 % (10.5-15); White Blood Count 7.3 10^3/ul (3.5-10.8)
[2018-07-25 10:21] LABS: INR 0.89 (0.77-1.02)
--- NOTE | 2018-07-25 10:23 | RAD ---
Indication: LEFT foot numbness. Possible arterial occlusion. Comparison: December 09, 2016 Technique: Upright AP 1002 hours Report: Low lung volumes with mild subsegmental atelectasis most prominent at the LEFT lower lobe. Negative for pleural effusion or pneumothorax. Mild cardiomegaly with suggestion of LEFT atrial enlargement. Unremarkable central pulmonary vasculature and mediastinal contours accounting for low lung volumes. IMPRESSION: #. Low lung volumes with subsegmental atelectasis. #. Mild cardiomegaly without evidence for pulmonary edema.
[2018-07-25 10:25] LABS: EGFR Non-African American 45.4 (>60)
[2018-07-25] MEDS ORDERED: Heparin VIAL(*) 5000 UNITS/ML VIAL (FIVE THOUSAND) ONE (11:10)
[2018-07-25] MEDS ORDERED: Heparin VIAL(*) 5000 UNITS/ML VIAL (FIVE THOUSAND) IV ONE (11:14)
--- NOTE | 2018-07-25 11:36 | RAD ---
Indication: Left leg numbness, history of angioplasty March with left big toe amputated. Duplex Doppler sonography of the left lower extremity arterial system was performed. Atherosclerosis is noted. Doppler interrogation the left common femoral artery demonstrates a peak systolic velocity of 133 cm/s. The proximal deep femoral artery demonstrates peak systolic velocity of 144 cm/s. The femoral artery in its proximal, mid and distal portion demonstrates peak systolic velocity of 129 cm/s, 98 cm/s and 68 cm/s. The popliteal artery posterior proximally demonstrates a peak systolic velocity of 55 cm/s. No flow is noted in the distal popliteal artery there is no flow noted in the posterior tibial trunk. No flow is noted in the proximal posterior tibial artery. Slow flow is noted in the mid and distal posterior tibial artery. Diminished flow is also noted in the peroneal arteries and anterior tibial arteries. 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 The proximal posterior tibial artery also demonstrates no flow. These findings are new since April 15, 2018. Findings called to Dr. Knowles at 11:30 AM
--- NOTE | 2018-07-25 12:18 | CONSULT ---
Consult Consult: Date of Service: 07/25/18 Subjective: Patient with aching pain in left calf. Aching pain is worse when leg is elevated. Left foot is numb x 2-3 days. No pain in the foot. No new discoloration per patient. Objective: Selected Entries 07/25/18 07/25/18 09:06 11:22 Temperature 97.8 F Temperature Temporal Artery Source Scan Pulse Rate 84 Heart Rate 84 Respiratory 16 Rate Blood Pressure 147/83 (mmHg) Blood Pressure 115 Mean O2 Sat by Pulse 98 Oximetry LLE Arterial Duplex: Occlusion of from distal popliteal artery to TP trunk AAO x 3, NAD Pulses not palpable at left pop and ankle arteries 2+ pulses left [employer] Left foot is warm to touch, not "ice cold" Left foot is pink. 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 Symptoms are consistent with claudication and rest pain, not necessarily an emergency "cold foot" or necrotic foot. Plan: 1. D/C to home. 2. Start Plavix 75 mg PO daily (Script called in by me) and ASA 81 mg PO daily. 3. Will either schedule for angiography early next week or refer to Vascular Surgery. This was discussed with the patient and his as well as Dr. Knowles.
[2018-07-25 12:33] VITALS: BP 164/87
== END 2018-07-25 12:33 | disposition home or self-care (01) ==
LOC: ED 08:58
DX: I74.3 Embolism and thrombosis of arteries of the lower extremities (principal); J98.11 Atelectasis; I51.7 Cardiomegaly; M79.662 Pain in left lower leg; R11.0 Nausea; Z89.412 Acquired absence of left great toe; Z87.891 Personal history of nicotine dependence
CPT/HCPCS: 36415; 71045; 80053; 83605; 85025; 85610; 85730; 93005; 96374; 96376; 99283; J1644

== ENCOUNTER 2018-09-07 09:27 | Observation (INO) | payer OTHER, MEDICARE ==
--- OUTSIDE RECORDS SUMMARY | 2018-09-07 09:53 | XMS REPORT | Continuity of Care Document ---
:1955 External Reference #:[id number] Author Name Selin Romeo Care Team Providers Name Role Phone Gabbie Shell MD Primary Care Physician Unavailable Payers Type Date Identification Numbers Payment Provider Subscriber Effective: Policy Number: [id number] [employer]-[facility] Maryam Guardado 2012 PayID: [id number] [address] [place] [address] Effective: 2018 Policy Number: [id number] Medicare Price Guardado PayID: [id number] [address] [place] [address] Expires: 2018 Policy Number: [id number] Medicare Price Guardado PayID: [id number] [address] [place] [address] Expires: 2018 Policy Number: [id number] Medicare Price Guardado PayID: [id number] [address] [place] [address] Expires: 2018 Policy Number: [id number] [employer] Maryam Waterman Debby Group Number: [id number] [address] PayID: [id number] [place] [address] Onset: 2015 Policy Number: [id number] [place] Price Rg Debby Group Number: [id number] [address] PayID: [id number] MAMADOU [place] [phone] Advance Directives Description No Information Available Problems Date Description Provider Status Onset: 04/22/2018 Acute osteomyelitis of ankle Jose Juan King MD Active and/or foot Onset: 04/24/2018 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 Tobacco Use Start: Unknown End: Former Cigarette Smoker Unknown Smoking Status Reviewed: 08/26/18 Former Cigarette Smoker ETOH Use Denies alcohol use Tobacco Use Start: Unknown End: Patient is a former quit March 2018 - Unknown smoker former 1 ppd x 45 yrs Recreational Drug Use Denies Drug Use Exercise Type/Frequency Exercises sporadically Allergies, Adverse Reactions, Alerts Description No Known Drug Allergies Medications Medication Date Status Form Strength Qnty SIG Indications Ordering Provider Metformin HCL / Active Tablets 1000mg 180tab 1 po bid Unknown 0000 s Zoloft / Active 100mg 2 po daily Unknown 0000 Lamictal / Active Tablets 200mg 1 by mouth Unknown 0000 twice daily Glipizide / Active Tablets 10mg 1 by mouth Unknown 0000 once a day Humalog / Active pump Unknown 0000 Amlodipine / Active Tablets 5mg 1 by mouth Unknown Besylate 0000 every day Bupropion HCL / Active Tablets ER 150mg 1 by mouth Unknown ER (XL) 0000 24HR every day Docusate / Active Capsules 100mg 1 tab by Unknown 0000 mouth 2-3 times a day as needed Aspirin Adult / Active Chewtabs 81mg 1 by mouth Unknown Low Strength 0000 every day Clopidogrel 00/ Active Tablets 75mg 1 by mouth Unknown 0000 every evening Acetaminophen 00/00/ Active Tablets 325mg 2 tablets Unknown 0000 by mouth every 6 hours as needed for pain/fever CBD / Active Capsule 1 q 6hr prn Unknown 0000 per protocol Lamotrigine ER 08/01/ Hx Tablets 200 mg Jamar 2017 - daily D. 07/31/ Ricky 2017 M.D. Metronidazole 06/10/ Hx Tablets 500mg 42tabs 1 tab by Jamar 2017 - mouth D. 05/23/ three Ricky 2017 times per M.D. day Keflex 05/05/ Hx Capsules 250mg 30caps Take 1 Jose Juan 2017 - capsule Fernando, 06/09/ qid 2017 Clindamycin HCL 05/02/ Hx Capsules 300mg 30caps Take 1 Jose Juan 2017 - Capsule By Fernando, 05/07/ Mouth 2018 Three Times Daily Oxycodone HCL 04/24/ Hx Tablets 5mg 15tabs 1 tab Jose Juan 2017 - every 4-6 Fernando, 07/06/ hours as 2017 needed for pain mdd 4 Clindamycin HCL 11/01/ Hx Capsules 300mg 90caps 1 tabs by Jamar 2015 - mouth 3 D. 01/03/ times a Ricky2015 day M.D. Lamictal 05/13/ Hx Tablets 25mg Paul Macario 2012 - Dori, 05/13/ M.D. 2012 Lamictal 05/13/ Hx Tablets 100mg 90tabs 1 and 1/2 Paul Macario 2012 - malika and Dori, 10/01 qhs M.D. 2015 for 2 wks then 1 and 1/2 qam and 1 qhs for 2 wks then 1 and 1/2 bid Lantus Solostar / Hx Solution 100Unit/ML 5units inject 50 Unknown 0000 - units sc 2017 morning, inject 7 units sc at hs Bupropion HCL / Hx Tablets ER 300mg 1 by mouth Unknown ER (XL) 0000 - 24HR every day 2017 Lamictal / Hx (?) 1 po daily Unknown 0000 - 2012 Lipitor / Hx Tablets 20mg 90tabs one tab po Unknown 0000 - qhs 2015 Aspirin /00/ Hx 325mg 1 tab po Unknown 0000 - daily 2015 Clindamycin HCL / Hx Capsules 300mg 1 capsule Unknown 0000 - by mouth 11/01/ four times 2016 a day Cefazolin 00/00/ Hx Solution 1gm 2 gm iv Unknown Sodium 0000 - Rec every 8 11/16/ hours 2015 Lisinopril 00/00/ Hx Tablets 20mg 1 by mouth Unknown 0000 - every day 2017 Percocet 00/00/ Hx Tablets 5-325mg 1 by mouth Unknown 0000 - every 4 04/21/ hours as 2018 needed pain Bentyl 00/00/ Hx Capsules 10mg take 1 Unknown 0000 - tablet by with 2016 every meal Tramadol HCL 00/00/ Hx Tablets 50mg 1 tablets Unknown 0000 - every 6 01/03/ hours as 2016 needed Levofloxacin 00/00/ Hx Tablets 750mg Take 1 Unknown 0000 - Tablet By 2017 Every Day Clindamycin HCL 00/00/ Hx Capsules 300mg Take 1 Unknown 0000 - Capsule By 2017 Three Times Daily Metronidazole 00/ Hx Tablets 500mg Take 1 Unknown 0000 - Tablet By 2017 Three Times Daily Glucotrol XL / Hx Tablets ER 10mg Unknown 0000 - 24HR 2017 Cefepime HCL 00/00/ Hx Solution 1gm grams Unknown 0000 - Rec every 12 2017 through [facility] Vancomycin HCL 00/00/ Hx Solution 1000mg iv every Unknown 0000 - Rec 24 hours 2018 [facility] Immunizations Description No Information Available Vital Signs Date Vital Result Comment 08/26/2018 1:41pm Height 67 inches 5'7" Weight 187.00 lb Heart Rate 100 /min Respiratory Rate 18 /min Body Temperature 95.8 F Pain Level 0 BMI (Body Mass Index) 29.3 kg/m2 08/12/2018 1:01pm Height 67 inches 5'7" Weight 187.00 lb Heart Rate 116 /min Respiratory Rate 18 /min Body Temperature 98.0 F Pain Level 18 BMI (Body Mass Index) 29.3 kg/m2 07/28/2018 1:02pm Height 67 inches 5'7" Weight 186.00 lb Heart Rate 92 /min Respiratory Rate 18 /min Body Temperature 96.8 F Pain Level 0 BMI (Body Mass Index) 29.1 kg/m2 07/23/2018 12:00pm Height 67 inches 5'7" Weight 186.00 lb Heart Rate 78 /min BP Systolic Sitting 112 mmHg BP Diastolic Sitting 70 mmHg Respiratory Rate 16 /min BMI (Body Mass Index) 29.1 kg/m2 07/07/2018 1:02pm Height 67 inches 5'7" Weight 184.50 lb Heart Rate 86 /min BP Systolic 136 mmHg BP Diastolic 70 mmHg Respiratory Rate 18 /min Body Temperature 97.2 F Pain Level 0 BMI (Body Mass Index) 28.9 kg/m2 06/20/2018 1:05pm Height 67 inches 5'7" Heart Rate 84 /min Respiratory Rate 12 /min Body Temperature 97.0 F Pain Level 0 06/16/2018 1:34pm Height 67 inches 5'7" Weight 186.00 lb Heart Rate 80 /min BP Systolic Sitting 120 mmHg BP Diastolic Sitting 64 mmHg Respiratory Rate 14 /min Body Temperature 96.8 F BMI (Body Mass Index) 29.1 kg/m2 06/13/2018 1:18pm Height 67 inches 5'7" Heart Rate 80 /min Respiratory Rate 20 /min Body Temperature 97.1 F Pain Level 0 06/06/2018 11:20am Height 65 inches 5'5" Weight 180.00 lb Heart Rate 80 /min BP Systolic 100 mmHg BP Diastolic 60 mmHg Respiratory Rate 14 /min Pain Level 0 BMI (Body Mass Index) 30.0 kg/m2 05/27/2018 3:15pm Height 67 inches 5'7" Heart Rate 68 /min Respiratory Rate 20 /min Body Temperature 99.9 F Pain Level 0 05/20/2018 1:07pm Height 67 inches 5'7" Weight 183.00 lb Heart Rate 88 /min BP Systolic Sitting 112 mmHg BP Diastolic Sitting 72 mmHg Body Temperature 97.4 F Pain Level 0 BMI (Body Mass Index) 28.7 kg/m2 05/09/2018 1:13pm Height 66 inches 5'6" Weight 182.00 lb Heart Rate 88 /min BP Systolic Sitting 148 mmHg BP Diastolic Sitting 80 mmHg Body Temperature 97.3 F BMI (Body Mass Index) 29.4 kg/m2 05/08/2018 1:32pm Height 66 inches 5'6" Weight 184.00 lb Heart Rate 86 /min BP Systolic Sitting 102 mmHg BP Diastolic Sitting 64 mmHg Respiratory Rate 14 /min Body Temperature 97.3 F BMI (Body Mass Index) 29.7 kg/m2 05/02/2018 1:11pm Height 66 inches 5'6" Weight 192.00 lb Heart Rate 84 /min BP Systolic Sitting 110 mmHg BP Diastolic Sitting 68 mmHg Body Temperature 99.3 F Pain Level 0 BMI (Body Mass Index) 31.0 kg/m2 04/22/2018 1:43pm Height 66 inches 5'6" Weight 192.00 lb Heart Rate 92 /min Respiratory Rate 20 /min Body Temperature 20.0 F Pain Level 1 BMI (Body Mass Index) 31.0 kg/m2 01/05/2016 11:32am Height 66 inches 5'6" Weight 200.00 lb Body Temperature 96.7 F Pain Level 0 BMI (Body Mass Index) 32.3 kg/m2 11/30/2015 3:10pm Height 66 inches 5'6" Weight 191.00 lb Heart Rate 84 /min BP Systolic Sitting 106 mmHg BP Diastolic Sitting 60 mmHg Respiratory Rate 14 /min Body Temperature 96.9 F BMI (Body Mass Index) 30.8 kg/m2 11/16/2015 3:14pm Height 66 inches 5'6" Weight 200.00 lb Heart Rate 84 /min BP Systolic Sitting 124 mmHg BP Diastolic Sitting 82 mmHg Respiratory Rate 14 /min Body Temperature 98.2 F BMI (Body Mass Index) 32.3 kg/m2 11/11/2015 12:52pm Height 66 inches 5'6" Weight 200.00 lb Respiratory Rate 18 /min Pain Level 0 BMI (Body Mass Index) 32.3 kg/m2 11/03/2015 1:50pm Height 66 inches 5'6" Weight 203.00 lb Heart Rate 96 /min BP Systolic Sitting 130 mmHg BP Diastolic Sitting 72 mmHg Respiratory Rate 16 /min Body Temperature 97.7 F BMI (Body Mass Index) 32.8 kg/m2 10/28/2015 9:26am Height 66 inches 5'6" Weight 195.00 lb Body Temperature 97.1 F BMI (Body Mass Index) 31.5 kg/m2 07/29/2013 8:44am Heart Rate 76 /min BP Systolic Sitting 118 mmHg BP Diastolic Sitting 82 mmHg Pain Level 18 05/12/2013 10:43am Heart Rate 84 /min BP Systolic Sitting 148 mmHg BP Diastolic Sitting 84 mmHg Respiratory Rate 16 /min Results Test Date Facility Test Result H/L Range Note Comp Metabolic Panel 06/23/2018 [facility] Sodium 137 mmol/L N 135-[address] [place] [address] [phone] Potassium 4.9 mmol/L N 3.5-5.0 Chloride 107 mmol/L N 101-111 Co2 Carbon Dioxide 22 mmol/L N 22-32 Anion Gap 8 mmol/L N 2-11 Calcium 8.6 mg/dL N 8.6-10.3 Albumin 3.9 g/dL N 3.2-5.2 Total Bilirubin 0.40 mg/dL N 0.2-1.0 Glucose 223 mg/dL High 70-100 Blood Urea Nitrogen 20 mg/dL N 6-24 Creatinine 1.63 mg/dL High 0.67-1.17 BUN/Creatinine Ratio 12.3 N 8-20 Total Protein 6.4 g/dL N 6.4-8.9 Globulin 2.5 g/dL N 2-4 Albumin/Globulin Ratio 1.6 N 1-3 Alkaline Phosphatase 59 U/L N 34-104 Alt 16 U/L N 7-52 Ast 15 U/L N 13-39 Egfr Non- 42.8 >60 Egfr 51.8 >60 1 Laboratory test 06/23/2018 [facility] Vancomycin Trough 17.8 g /mL finding [address] [place] [address] [phone] C Reactive Protein 4.23 mg/L N <8.01 Comp Metabolic Panel 06/17/2018 [facility] Sodium 133 mmol/L Low 135-145 [address] [place] [address] [phone] Chloride 100 mmol/L Low 101-111 Co2 Carbon Dioxide 26 mmol/L N 22-32 Blood Urea Nitrogen 21 mg/dL N 6-24 Creatinine 1.64 mg/dL High 0.67-1.17 BUN/Creatinine Ratio 12.8 N 8-20 Calcium 9.4 mg/dL N 8.6-10.3 Total Protein 6.6 g/dL N 6.4-8.9 Albumin 3.8 g/dL N 3.2-5.2 Globulin 2.8 g/dL N 2-4 Albumin/Globulin Ratio 1.4 N 1-3 Total Bilirubin 0.40 mg/dL N 0.2-1.0 Alkaline Phosphatase 75 U/L N 34-104 Alt 25 U/L N 7-52 Ast 27 U/L N 13-39 Egfr Non- 42.5 >60 Egfr 51.4 >60 2 Potassium 5.3 mmol/L High 3.5-5.0 Anion Gap 7 mmol/L N 2-11 Glucose 553 mg/dL High 70-100 3 Laboratory test 06/17/2018 [facility] Vancomycin Trough 21.6 g /mL finding [address] [place] [address] [phone] C Reactive Protein 6.85 mg/L N <8.01 Laboratory test 06/13/2018 [facility] C Difficile PCR SEE RESULT [address] [place] [address] [phone] Laboratory test 06/11/2018 [facility] Vancomycin Trough 24.8 g /mL finding [address] [place] [address] [phone] C Reactive Protein 4.81 mg/L N <8.01 CBC Auto Diff 06/11/2018 [facility] White Blood 6.9 10^3/uL N 3.5-10.[address] [place] [address] [phone] Red Blood Count 3.88 10^6/uL Low 4.00-5.40 Hemoglobin 11.4 g/dL Low 14.0-18.0 Hematocrit 33 % Low 42-52 Mean Corpuscular Volume 85 fL N 80-94 Mean Corpuscular Hemoglobin 29 pg N 27-31 Mean Corpuscular HGB Conc 35 g/dL N 31-36 Red Cell Distribution Width 13 % N 10.5-15 Platelet Count 185 10^3/uL N 150-450 Mean Platelet Volume 8.0 um3 N 7.4-10.4 Abs Neutrophils 5.0 10^3/uL N 1.5-7.7 Abs Lymphocytes 0.8 10^3/uL Low 1.0-4.8 Abs Monocytes 0.8 10^3/uL N 0-0.8 Abs Eosinophils 0.2 10^3/uL N 0-0.6 Abs Basophils 0.1 10^3/uL N 0-0.2 Abs Nucleated RBC 0 10^3/uL Granulocyte % 72.8 % N 38-83 Lymphocyte % 11.0 % Low 25-47 Monocyte % 11.4 % High 0-7 Eosinophil % 3.6 % N 0-6 Basophil % 1.2 % N 0-2 Nucleated Red Blood Cells % 0.1 Comp Metabolic Panel 06/11/2018 [facility] Sodium 137 mmol/L N 135-[address] [place] [address] [phone] Potassium 4.4 mmol/L N 3.5-5.0 Chloride 102 mmol/L N 101-111 Co2 Carbon Dioxide 25 mmol/L N 22-32 Anion Gap 10 mmol/L N 2-11 Glucose 227 mg/dL High 70-100 Blood Urea Nitrogen 17 mg/dL N 6-24 Creatinine 1.59 mg/dL High 0.67-1.17 BUN/Creatinine Ratio 10.7 N 8-20 Calcium 9.3 mg/dL N 8.6-10.3 Total Protein 6.4 g/dL N 6.4-8.9 Albumin 3.7 g/dL N 3.2-5.2 Globulin 2.7 g/dL N 2-4 Albumin/Globulin Ratio 1.4 N 1-3 Total Bilirubin 0.50 mg/dL N 0.2-1.0 Alkaline Phosphatase 87 U/L N 34-104 Alt 17 U/L N 7-52 Ast 14 U/L N 13-39 Egfr Non- 44.1 >60 Egfr 53.3 >60 5 Laboratory test 04/24/2018 [facility] Point of Care 331 mg/dL High 70-100 [address] [place] [address] [phone] Laboratory test 04/24/2018 [facility] Point of Care 281 mg/dL High 70-100 [address] [place] [address] [phone] Laboratory test 04/24/2018 [facility] Surgical SEE RESULT [address] [place] [address] [phone] Laboratory test 04/24/2018 [facility] Point of Care 232 mg/dL High 70-100 [address] [place] [address] [phone] Laboratory test 04/24/2018 [facility] Point of Care 234 mg/dL High 70-100 [address] [place] [address] [phone] Laboratory test 11/14/2015 [facility] Erythrocyte Sed 66 mm/Hr High 0-[address] [place] [address] [phone] Laboratory test 11/14/2015 [facility] C Reactive 2.79 mg/L N < 5.00 [address] [place] [address] [phone] Comp Metabolic 11/14/2015 [facility] Sodium 135 mmol/L N 133- [address] [place] [address] [phone] Potassium 5.0 mmol/L N 3.5-5.0 Chloride 101 mmol/L N 101-111 Co2 Carbon Dioxide 27 mmol/L N 22-32 Anion Gap 7 mmol/L N 2-11 Glucose 192 mg/dL High 70-100 Blood Urea Nitrogen 16 mg/dL N 6-24 Creatinine 0.88 mg/dL N 0.67-1.17 BUN/Creatinine Ratio 18.2 N 8-20 Calcium 8.7 mg/dL N 8.6-10.3 Total Protein 6.0 g/dL Low 6.4-8.9 Albumin 3.4 g/dL N 3.2-5.2 Globulin 2.6 g/dL N 2-4 Albumin/Globulin Ratio 1.3 N 1-3 Total Bilirubin 0.20 mg/dL N 0.2-1.0 Alkaline Phosphatase 69 U/L N 34-104 Alt 4 U/L Low 7-52 Ast 12 U/L Low 13-39 Egfr Non- 87.8 N >60 Egfr 112.9 N >60 12 CBC Auto Diff 11/14/2015 [facility] White Blood 8.0 10^3/uL N 3.5-10.[address] [place] [address] [phone] Red Blood Count 4.22 10^6/uL N 4.0-5.4 Hemoglobin 11.8 g/dL Low 14.0-18.0 Hematocrit 36 % Low 42-52 Mean Corpuscular Volume 84 fL N 80-94 Mean Corpuscular Hemoglobin 28 pg N 27-31 Mean Corpuscular HGB Conc 33 g/dL N 31-36 Red Cell Distribution Width 14 % N 10.5-15 Platelet Count 150 10^3/uL N 150-450 Mean Platelet Volume 8 um3 N 7.4-10.4 Abs Neutrophils 5.8 10^3/uL N 1.5-7.7 Abs Lymphocytes 1.0 10^3/uL N 1.0-4.8 Abs Monocytes 0.7 10^3/uL N 0-0.8 Abs Eosinophils 0.5 10^3/uL N 0-0.6 Abs Basophils 0.1 10^3/uL N 0-0.2 Abs Nucleated RBC 0.01 10^3/uL N Granulocyte % 72.4 % N 38-83 Lymphocyte % 12.0 % Low 25-47 Monocyte % 8.6 % N 1-9 Eosinophil % 6.0 % N 0-6 Basophil % 1.0 % N 0-2 Nucleated Red Blood Cells % 0.1 N Laboratory test 11/08/2015 [facility] Erythrocyte Sed 77 mm/Hr High 0-[address] [place] [address] [phone] Comp Metabolic 11/08/2015 [facility] Sodium 135 N 133-[address] mmol/[place] [address] [phone] Potassium 5.1 mmol/L High 3.5-5.0 Chloride 101 mmol/L N 101-111 Co2 Carbon Dioxide 27 mmol/L N 22-32 Anion Gap 7 mmol/L N 2-11 Glucose 307 mg/dL High 70-100 Blood Urea Nitrogen 12 mg/dL N 6-24 Creatinine 0.93 mg/dL N 0.67-1.17 BUN/Creatinine Ratio 12.9 N 8-20 Calcium 9.0 mg/dL N 8.6-10.3 Total Protein 6.3 g/dL Low 6.4-8.9 Albumin 3.6 g/dL N 3.2-5.2 Globulin 2.7 g/dL N 2-4 Albumin/Globulin Ratio 1.3 N 1-3 Total Bilirubin 0.20 mg/dL N 0.2-1.0 Alkaline Phosphatase 89 U/L N 34-104 Alt 5 U/L Low 7-52 Ast 13 U/L N 13-39 Egfr Non- 82.3 N >60 Egfr 105.9 N >60 13 Laboratory test 11/08/2015 [facility] C Reactive 4.89 mg/L N < 5.00 [address] [place] [address] [phone] CBC Auto Diff 11/08/2015 [facility] White Blood 7.3 N 3.5- 10.[address] Count 10^3/[place] [address] [phone] Red Blood Count 4.45 10^6/uL N 4.0-5.4 Hemoglobin 12.3 g/dL Low 14.0-18.0 Hematocrit 38 % Low 42-52 Mean Corpuscular Volume 84 fL N 80-94 Mean Corpuscular Hemoglobin 28 pg N 27-31 Mean Corpuscular HGB Conc 33 g/dL N 31-36 Red Cell Distribution Width 14 % N 10.5-15 Platelet Count 184 10^3/uL N 150-450 Mean Platelet Volume 8 um3 N 7.4-10.4 Abs Neutrophils 5.4 10^3/uL N 1.5-7.7 Abs Lymphocytes 0.9 10^3/uL Low 1.0-4.8 Abs Monocytes 0.6 10^3/uL N 0-0.8 Abs Eosinophils 0.3 10^3/uL N 0-0.6 Abs Basophils 0.1 10^3/uL N 0-0.2 Abs Nucleated RBC 0.04 10^3/uL N Granulocyte % 74.1 % N 38-83 Lymphocyte % 12.3 % Low 25-47 Monocyte % 8.4 % N 1-9 Eosinophil % 4.2 % N 0-6 Basophil % 1.0 % N 0-2 Nucleated Red Blood Cells % 0.6 N Comp Metabolic Panel 10/31/2015 [facility] Sodium 134 mmol/L N 133-[address] [place] [address] [phone] Potassium 4.3 mmol/L N 3.5-5.0 Chloride 100 mmol/L Low 101-111 Co2 Carbon Dioxide 27 mmol/L N 22-32 Anion Gap 7 mmol/L N 2-11 Glucose 140 mg/dL High 70-100 Blood Urea Nitrogen 19 mg/dL N 6-24 Creatinine 0.96 mg/dL N 0.67-1.17 BUN/Creatinine Ratio 19.8 N 8-20 Calcium 8.6 mg/dL N 8.6-10.3 Total Protein 6.3 g/dL Low 6.4-8.9 Albumin 3.4 g/dL N 3.2-5.2 Globulin 2.9 g/dL N 2-4 Albumin/Globulin Ratio 1.2 N 1-3 Total Bilirubin 0.30 mg/dL N 0.2-1.0 Alkaline Phosphatase 96 U/L N 34-104 Alt 5 U/L Low 7-52 Ast 13 U/L N 13-39 Egfr Non- 79.4 N >60 Egfr 102.1 N >60 15 Laboratory test 10/31/2015 [facility] C Reactive 9.73 mg/L High < 5.00 [address] [place] [address] [phone] CBC Auto Diff 10/31/2015 [facility] White Blood 9.1 N 3.5- 10.[address] Count 10^3/[place] [address] [phone] Red Blood Count 4.36 10^6/uL N 4.0-5.4 Hemoglobin 12.3 g/dL Low 14.0-18.0 Hematocrit 36 % Low 42-52 Mean Corpuscular Volume 82 fL N 80-94 Mean Corpuscular Hemoglobin 28 pg N 27-31 Mean Corpuscular HGB Conc 35 g/dL N 31-36 Red Cell Distribution Width 14 % N 10.5-15 Platelet Count 228 10^3/uL N 150-450 Mean Platelet Volume 8 um3 N 7.4-10.4 Abs Neutrophils 6.8 10^3/uL N 1.5-7.7 Abs Lymphocytes 1.1 10^3/uL N 1.0-4.8 Abs Monocytes 0.8 10^3/uL N 0-0.8 Abs Eosinophils 0.4 10^3/uL N 0-0.6 Abs Basophils 0.1 10^3/uL N 0-0.2 Abs Nucleated RBC 0.01 10^3/uL N Granulocyte % 74.6 % N 38-83 Lymphocyte % 11.6 % Low 25-47 Monocyte % 8.8 % N 1-9 Eosinophil % 4.4 % N 0-6 Basophil % 0.6 % N 0-2 Nucleated Red Blood Cells % 0.1 N Laboratory test 10/31/2015 [facility] Erythrocyte Sed 95 mm/Hr High 0-[address] [place] [address] [phone] CBC Auto Diff 10/24/2015 [facility] White Blood 10.3 N 3.5- 10.[address] Count 10^3/[place] [address] [phone] Red Blood Count 4.23 10^6/uL N 4.0-5.4 Hemoglobin 11.9 g/dL Low 14.0-18.0 Hematocrit 35 % Low 42-52 Mean Corpuscular Volume 84 fL N 80-94 Mean Corpuscular Hemoglobin 28 pg N 27-31 Mean Corpuscular HGB Conc 34 g/dL N 31-36 Red Cell Distribution Width 14 % N 10.5-15 Platelet Count 203 10^3/uL N 150-450 Mean Platelet Volume 8 um3 N 7.4-10.4 Abs Neutrophils 8.3 10^3/uL High 1.5-7.7 Abs Lymphocytes 0.7 10^3/uL Low 1.0-4.8 Abs Monocytes 0.9 10^3/uL High 0-0.8 Abs Eosinophils 0.3 10^3/uL N 0-0.6 Abs Basophils 0.1 10^3/uL N 0-0.2 Abs Nucleated RBC 0 10^3/uL N Granulocyte % 80.4 % N 38-83 Lymphocyte % 7.0 % Low 25-47 Monocyte % 8.7 % N 1-9 Eosinophil % 3.3 % N 0-6 Basophil % 0.6 % N 0-2 Nucleated Red Blood Cells % 0 N Comp Metabolic Panel 10/24/2015 [facility] Sodium 136 mmol/L N 133-[address] [place] [address] [phone] Potassium 4.9 mmol/L N 3.5-5.0 Chloride 102 mmol/L N 101-111 Co2 Carbon Dioxide 27 mmol/L N 22-32 Anion Gap 7 mmol/L N 2-11 Glucose 215 mg/dL High 70-100 Blood Urea Nitrogen 15 mg/dL N 6-24 Creatinine 1.05 mg/dL N 0.67-1.17 BUN/Creatinine Ratio 14.3 N 8-20 Calcium 8.9 mg/dL N 8.6-10.3 Total Protein 6.4 g/dL N 6.4-8.9 Albumin 3.6 g/dL N 3.2-5.2 Globulin 2.8 g/dL N 2-4 Albumin/Globulin Ratio 1.3 N 1-3 Total Bilirubin 0.30 mg/dL N 0.2-1.0 Alkaline Phosphatase 104 U/L N 34-104 Alt 6 U/L Low 7-52 Ast 15 U/L N 13-39 Egfr Non- 71.6 N >60 Egfr 92.0 N >60 17 Laboratory test 10/24/2015 [facility] C Reactive 15.74 mg/L High < 5.00 [address] Protein [place], [place] [id number] [phone] Laboratory test 10/13/2015 [facility] Point of Care 150 mg/dL High 74-106 [address] [place] [address] [phone] Laboratory test 10/13/2015 [facility] Wound SEE RESULT [address] Culture/[place] [address] [phone] Tissue (BX) Culture & Gram St SEE RESULT BELOW 21 MRSA/S. aureus Ssti PCR SEE RESULT BELOW 22 Anaerobic Culture SEE RESULT BELOW 23 Laboratory test 10/13/2015 [facility] Wound Culture/Sensi SEE RESULT [address] [place] [address] [phone] Tissue (BX) Culture & Gram St SEE RESULT BELOW 25 MRSA/S. aureus Ssti PCR SEE RESULT BELOW 26 Anaerobic Culture SEE RESULT BELOW 27 Laboratory test 10/13/2015 [facility] Wound Culture/Sensi SEE RESULT [address] [place] [address] [phone] Tissue (BX) Culture & Gram St SEE RESULT BELOW 29 MRSA/S. aureus Ssti PCR SEE RESULT BELOW 30 Anaerobic Culture SEE RESULT BELOW 31 Laboratory test 10/13/2015 [facility] Wound Culture/Sensi SEE RESULT [address] [place] [place], [place] [id number] [phone] Tissue (BX) Culture & Gram St SEE RESULT BELOW 33 MRSA/S. aureus Ssti PCR SEE RESULT BELOW 34 Anaerobic Culture SEE RESULT BELOW 35 Laboratory test 10/13/2015 [facility] Mycobacterial See Comment N [address] Culture [place], [place] [id number] [phone] 1 Because ethnic data is not always [...] Result [id number] Called to GONSALO at: 13:25:55 by:[id number] Read back by: GONSALO 4 SEE RESULT BELOW Name: PRICE GUARDADO : [address]: Jamar Pérez MD Acct: [id number] Unit: [id number] AGE: 62 Location: [facility] Re06/13/18 SEX: M Status: REG REF SPEC: [id number] GABO: 06/13/18-[address] [facility] [address]: Jamar Pérez MD REQ: [id number] RECD: 06/13/18 STATUS: COMP _ SOURCE: STOOL SPDESC: ORDERED: CAdrianna diff PCR Procedure Result Reported Site Stool Specimen Description Final 06/13/18- 1609 ML Stool Color Brown Stool Form Formed Stool Consistency Hard C. difficile PCR Final 06/13/18- 1609 ML Test not performed * ML - Main Lab . END OF REPORT DEPARTMENT OF PATHOLOGY, [address], [place], [place] [address] Vinayak Yanez M.D. Director [facility] # [id number] 5 Because ethnic data is not always [...] 5 Kidney failure <15 (or dialysis) 6 Sales Inspector: [id number] Sales Inspector: [id number] SEE RESULT BELOW Name: PRICE GUARDADO : [address]: Jose Juan King MD Acct: [id number] Unit: [id number] AGE: 62 Location: [place] Re04/24/18 SEX: M Status: WINIFRED SMITH SPEC: [id number] GABO: 04/24/18- SUBM DR: Jose Juan King MD REQ: [id number] RECD: 04/24/181440 STATUS: SOUT _ ORDERED: Decal, [...] margin blue and plantar margin black, and employee's representative sections are submitted in cassettes A and B to include bone following decalcification in cassette A. Signed by and Reported on: Abby Ellis MD 04/29/18 1052 END OF REPORT DEPARTMENT OF PATHOLOGY, [address] [place] [address] Vinayak Yanez M.D. Director [facility] # [id number] Sales Inspector: [id number] Sales Inspector: [id number] 11 Acute inflammation: >10.00 12 Because ethnic data is not always [...] 5 Kidney failure <15 (or dialysis) 13 Because ethnic data is not always [...] (or dialysis) 14 Acute inflammation: >10.00 15 Because ethnic data is not always [...] (or dialysis) 18 Acute inflammation: >10.00 19 Sales Inspector: [id number] FERNANDO PETTIT 20 SEE RESULT BELOW Name: PRICE GUARDADO : [address]: Jessie Lazar MD Acct: [id number] Unit: [id number] AGE: 60 Location: [facility] Re10/13/15 SEX: M Status: REG [facility] SPEC: [id number] GABO: 10/13/15-[address] [place] [address] DR: Jessie Lazar MD REQ: [id number] RECD: 10/13/15 STATUS: RES OTHR DR: Gabbie [...] Direct PENDING * ML - MAIN LAB ([facility]) . END OF REPORT * ML=Testing performed at Main Lab DEPARTMENT OF PATHOLOGY, [address] [place] [address] Vinayak Yanez M.D. Director [facility] # [id number] 21 SEE RESULT BELOW Name: PRICE GUARDADO : [address]: Jessie Lazar MD Acct: [id number] Unit: [id number] AGE: 60 Location: [facility] 338- Re10/13/15 Dis: 10/19/15 SEX: M Status: DIS IN SPEC: [id number] GABO: 10/13/15-[address] [facility] [address]: Jessie Lazar MD REQ: [id number] RECD: 10/13/15 STATUS: RES OTHR DR: Gabbie Shell MD _ SOURCE: WOUND SPDESC:KNEE LEFT ORDERED: Tissue Cult/GS/R, Fungal - Other/R, Acid Fast Stain/U COMMENTS: CLOSTRIDIUM FINDINGS IN ADDITION TO S. AUREUS: Verbal to DR. SHELL by [id number] at 1411 on 10/15/15. Results read back [...] performed at Main Lab DEPARTMENT OF PATHOLOGY, [address] [place] [address] Vinayak Yanez M.D. Director [facility] # [id number] Patient: PRICE GUARDADO [id number] (Continued) Specimen: [id number] Collected: 10/13/15-1640 Received: 10/13/15 (Continued) Procedure Result Reported Site Acid Fast Stain - Direct Final (continued) 10/14/15- 817 Due to limited sensitivity of the smear, results should be used as an adjunct in evaluating the patient's status and cultural examination is highly recommended for diagnosis. * ML - MAIN LAB ([facility]) . END OF REPORT * ML=Testing performed at Main Lab DEPARTMENT OF PATHOLOGY, [address] [place] [address] Vinayak Yanez M.D. Director [facility] # [id number] 22 SEE RESULT BELOW Name: PRICE GUARDADO : [address]: Jessie Lazar MD Acct: [id number] Unit: [id number] AGE: 60 Location: [place] [address] Re10/13/15 SEX: M Status: ADM IN SPEC: [id number] GABO: 10/13/15-16[address] [facility] [address]: Jessie Lazar MD REQ: [id number] RECD: 10/13/15 STATUS: RES OTHR DR: Gabbie Shell MD _ SOURCE: WOUND SPDESC:KNEE LEFT ORDERED: Anaerobic Cult/R, MRSA/SA SSTI/R, Culture Stain/R, Fungal - Other /R, Acid Fast Stain/U COMMENTS: Verbal to GEMINI CHAWLA by [id number] at 2020 on 10/13/15. Results read back [...] performed at Main Lab DEPARTMENT OF PATHOLOGY, [address] [place] [address] Vinayak Yanez M.D. Director [facility] # [id number] Patient: PRICE GUARDADO [id number] (Continued) Specimen: [id number] Collected: 10/13/15-1639 Received: 10/13/15 (Continued) Procedure Result Reported Site Acid Fast Stain - Direct Final (continued) 10/14/15809 Due to limited sensitivity of the smear, results should be used as an adjunct in evaluating the patient's status and cultural examination is highly recommended for diagnosis. * ML - MAIN LAB ([facility]) . END OF REPORT * ML=Testing performed at Main Lab DEPARTMENT OF PATHOLOGY, [address] [place] [address] Vinayak Yanez M.D. Director [facility] # [id number] 23 SEE RESULT BELOW Name: PRICE GUARDADO : [address]: Jessie Lazar MD Acct: [id number] Unit: [id number] AGE: 60 Location: [facility] 338-01 Re10/13/15 Dis: 10/19/15 SEX: M Status: DIS IN SPEC: [id number] GABO: 10/13/15-[address] [facility] [address]: Jessie Lazar MD REQ: [id number] RECD: 10/13/15 STATUS: RES OTHR DR: Gabbie Shell MD _ SOURCE: WOUND SPDESC:KNEE LEFT ORDERED: Anaerobic Cult/R, MRSA/SA SSTI/R, Culture Stain/R, Fungal - Other /R, Acid Fast Stain/U COMMENTS: Verbal to GEMINI CHAWLA by [id number] at 2020 on 10/13/15. Results read back accurately. CLOSTRIDIUM FINDINGS IN ADDITION TO S. AUREUS: Verbal to DR. SHELL by [id number] at 1411 on 10/15/15. Results read back [...] performed at Main Lab DEPARTMENT OF PATHOLOGY, [address] [place] [address] Vinayak Yanez M.D. Director [facility] # [id number] Patient: PRICE GUARDADO [id number] (Continued) Specimen: [id number] Collected: 10/13/15 Received: 10/13/15 (Continued) Procedure Result [...] These antibiotics are not available in the [facility] Formulary Contact the Microbiology Department for any additional antibiotic reporting. Fungal Cult - Other Sources Preliminary 10/24/15- 1325 ML Fungal Culture No Growth of Mycotic Organisms 1 week Acid Fast Stain - Direct Final 10/14/15- 0810 ML CONTINUED ON NEXT PAGE * ML=Testing performed at Main Lab DEPARTMENT OF PATHOLOGY, [address] [place] [address] Vinayak Yanez M.D. Director [facility] # [id number] Patient: PRICE GUARDADO [id number] (Continued) Specimen: [id number] Collected: 10/13/15-1639 Received: 10/13/15 (Continued) Procedure Result Reported Site Acid Fast Stain - Direct Final (continued) 10/14/15809 AFB Smear Result No Acid Fast Bacillus Present (Negative) Preparation By Direct Smear Due to limited sensitivity of the smear, results should be used as an adjunct in evaluating the patient's status and cultural examination is highly recommended for diagnosis. * ML - MAIN LAB ([facility]) . END OF REPORT * ML=Testing performed at Main Lab DEPARTMENT OF PATHOLOGY, [address] [place] [address] Vinayak Yanez M.D. Director [facility] # [id number] 24 SEE RESULT BELOW Name: DEBBYPRICE : [address]: Jessie Lazar MD Acct: [id number] Unit: [id number] AGE: 60 Location: [facility] Re10/13/15 SEX: M Status: REG SDC SPEC: [id number] GABO: 10/13/15-[address] [facility] [address]: Jessie Lazar MD REQ: [id number] RECD: 10/13/15 STATUS: RES OTHR DR: Gabbie [...] Direct PENDING * ML - MAIN LAB ([facility]) . END OF REPORT * ML=Testing performed at Main Lab DEPARTMENT OF PATHOLOGY, [address] [place] [address] Vinayak Yanez M.D. Director [facility] # [id number] 25 SEE RESULT BELOW Name: PRICE GUARDADO : [address]: Jessie Lazar MD Acct: [id number] Unit: [id number] AGE: 60 Location: [facility] 338-01 Re10/13/15 Dis: 10/19/15 SEX: M Status: DIS IN SPEC: [id number] GABO: 10/13/15-[address]: Jessie Lazar MD REQ: [id number] RECD: 10/13/15 STATUS: RES OTHR DR: Gabbie Shell MD _ SOURCE: WOUND SPDESC:KNEE LEFT ORDERED: Tissue Cult/GS/R, Fungal - Other/R, Acid Fast Stain/U COMMENTS: CLOSTRIDIUM FINDINGS IN ADDITION TO S. AUREUS: Verbal to DR. SHELL by [id number] at 1411 on 10/15/15. Results read back [...] performed at Main Lab DEPARTMENT OF PATHOLOGY, [address] [place] [address] Vinayak Yanez M.D. Director [facility] # [id number] Patient: PRICE GUARDADO [id number] (Continued) Specimen: [id number] Collected: 10/13/15 Received: 10/13/15352 (Continued) Procedure Result Reported Site Acid Fast Stain - Direct Final (continued) 10/14/15- 817 Due to limited sensitivity of the smear, results should be used as an adjunct in evaluating the patient's status and cultural examination is highly recommended for diagnosis. * ML - MAIN LAB ([facility]) . END OF REPORT * ML=Testing performed at Main Lab DEPARTMENT OF PATHOLOGY, [address] [place] [address] Vinayak Yanez M.D. Director [facility] # [id number] 26 SEE RESULT BELOW Name: BARI GUARDADOCHERYL Rg : [address]: Jessie Lazar MD Acct: [id number] Unit: [id number] AGE: 60 Location: [facility] 338-01 Re10/13/15 SEX: M Status: ADM IN SPEC: [id number] GABO: 10/13/15-[address] [facility] [address]: Jessie Lazar MD REQ: [id number] RECD: 10/13/15 STATUS: RES OTHR DR: Gabbie Shell MD _ SOURCE: WOUND SPDESC:KNEE LEFT ORDERED: Anaerobic Cult/R, MRSA/SA SSTI/R, Culture Stain/R, Fungal - Other /R, Acid Fast Stain/U COMMENTS: Verbal to GEMINI HASKINSZONIA CHAWLA by [id number] at 2020 on 10/13/15. Results read back [...] performed at Main Lab DEPARTMENT OF PATHOLOGY, [address] [place] [address] Vinayak Yanez M.D. Director [facility] # [id number] Patient: PRICE GUARDADO [id number] (Continued) Specimen: [id number] Collected: 10/13/15 Received: 10/13/15 (Continued) Procedure Result Reported Site Acid Fast Stain - Direct Final (continued) 10/14/15 76 Due to limited sensitivity of the smear, results should be used as an adjunct in evaluating the patient's status and cultural examination is highly recommended for diagnosis. * ML - MAIN LAB ([facility]) . END OF REPORT * ML=Testing performed at Main Lab DEPARTMENT OF PATHOLOGY, [address] [place] [address] Vinayak Yanez M.D. Director [facility] # [id number] 27 SEE RESULT BELOW Name: PRICE GUARDADO : [address]: Jessie Lazar MD Acct: [id number] Unit: [id number] AGE: 60 Location: [place] [address]- Re10/13/15 Dis: 10/19/15 SEX: M Status: DIS IN SPEC: [id number] GABO: 10/13/15-[address] [facility] [address]: Jessie Lazar MD REQ: [id number] RECD: 10/13/15463 STATUS: RES OTHR DR: Gabbie Shell MD _ SOURCE: WOUND SPDESC:KNEE LEFT ORDERED: Anaerobic Cult/R, MRSA/SA SSTI/R, Culture Stain/R, Fungal - Other /R, Acid Fast Stain/U COMMENTS: Verbal to GEMINI CHAWLA by [id number] at 2020 on 10/13/15. Results read back accurately. CLOSTRIDIUM FINDINGS IN ADDITION TO S. AUREUS: Verbal to DR. SHELL by [id number] at 1411 on 10/15/15. Results read back [...] performed at Main Lab DEPARTMENT OF PATHOLOGY, [address] [place] [address] Vinayak Yanez M.D. Director [facility] # [id number] Patient: PRICE GUARDADO [id number] (Continued) Specimen: [id number] Collected: 10/13/15 Received: 10/13/15 (Continued) Procedure Result [...] These antibiotics are not available in the [facility] Formulary Contact the Microbiology Department for any additional antibiotic reporting. Fungal Cult - Other Sources Preliminary 10/31/15- 1443 ML Fungal Culture No Growth of Mycotic Organisms 2 weeks Acid Fast Stain - Direct Final 10/14/15- 0810 ML CONTINUED ON NEXT PAGE * ML=Testing performed at Main Lab DEPARTMENT OF PATHOLOGY, [address] [place] [address] Vinayak Yanez M.D. Director [facility] # [id number] Patient: PRICE GUARDADO [id number] (Continued) Specimen: [id number] Collected: 10/13/15 Received: 10/13/15 (Continued) Procedure Result Reported Site Acid Fast Stain - Direct Final (continued) 10/14/15- 08 AFB Smear Result No Acid Fast Bacillus Present (Negative) Preparation By Direct Smear Due to limited sensitivity of the smear, results should be used as an adjunct in evaluating the patient's status and cultural examination is highly recommended for diagnosis. * ML - MAIN LAB ([facility]) . END OF REPORT * ML=Testing performed at Main Lab DEPARTMENT OF PATHOLOGY, [address] [place] [address] Vinayak Yanez M.D. Director [facility] # [id number] 28 SEE RESULT BELOW Name: PRICE GUARDADO : [address]: Jessie Lazar MD Acct: [id number] Unit: [id number] AGE: 60 Location: [facility] Re10/13/15 SEX: M Status: REG [facility] SPEC: [id number] GABO: 10/13/15-[address] [facility] [address]: Jessie Lazar MD REQ: [id number] RECD: 10/13/15 STATUS: RES OTHR DR: Gabbie [...] Direct PENDING * ML - MAIN LAB ([facility]) . END OF REPORT * ML=Testing performed at Main Lab DEPARTMENT OF PATHOLOGY, [address] [place] [address] Vinayak Yanez M.D. Director [facility] # [id number] 29 SEE RESULT BELOW Name: PRICE GUARDADO : [address]: Jessie Lazar MD Acct: [id number] Unit: [id number] AGE: 60 Location: [place] [address]- Re10/13/15 Dis: 10/19/15 SEX: M Status: DIS IN SPEC: [id number] GABO: 10/13/15-[address] [facility] [address]: Jessie Lazar MD REQ: [id number] RECD: 10/13/15 STATUS: RES OTHR DR: Gabbie Shell MD _ SOURCE: WOUND SPDESC:KNEE LEFT ORDERED: Tissue Cult/GS/R, Fungal - Other/R, Acid Fast Stain/U COMMENTS: CLOSTRIDIUM FINDINGS IN ADDITION TO S. AUREUS: Verbal to DR. SHELL by [id number] at 1411 on 10/15/15. Results read back [...] ON NEXT PAGE * ML=Testing performed at [facility] Lab DEPARTMENT OF PATHOLOGY, [address] [place] [address] Vinayak Yanez M.D. Director [facility] # [id number] Patient: PRICE GUARDADO [id number] (Continued) Specimen: [id number] Collected: 10/13/15-1639 Received: 10/13/15-1755 (Continued) Procedure Result Reported Site Acid Fast Stain - Direct Final (continued) 10/14/15817 Due to limited sensitivity of the smear, results should be used as an adjunct in evaluating the patient's status and cultural examination is highly recommended for diagnosis. * ML - MAIN LAB ([facility]) . END OF REPORT * ML=Testing performed at Main Lab DEPARTMENT OF PATHOLOGY, [address] [place] [address] Vinayak Yanez M.D. Director [facility] # [id number] 30 SEE RESULT BELOW Name: PRICE GUARDADO : [address]: Jessie Lazar MD Acct: [id number] Unit: [id number] AGE: 60 Location: [facility] 338- Re10/13/15 SEX: M Status: ADM IN SPEC: [id number] GABO: 10/13/15-[address] [facility] [address]: Jessie Lazar MD REQ: [id number] RECD: 10/13/15 STATUS: RES OTHR DR: Gabbie Shell MD _ SOURCE: WOUND SPDESC:KNEE LEFT ORDERED: Anaerobic Cult/R, MRSA/SA SSTI/R, Culture Stain/R, Fungal - Other /R, Acid Fast Stain/U COMMENTS: Verbal to GEMINI CHAWLA by [id number] at 2020 on 10/13/15. Results read back [...] performed at Main Lab DEPARTMENT OF PATHOLOGY, [address] [place] [address] Vinayak Yanez M.D. Director [facility] # [id number] Patient: PRICE GUARDADO [id number] (Continued) Specimen: [id number] Collected: 10/13/15 Received: 10/13/15 (Continued) Procedure Result Reported Site Acid Fast Stain - Direct Final (continued) 10/14/15809 Due to limited sensitivity of the smear, results should be used as an adjunct in evaluating the patient's status and cultural examination is highly recommended for diagnosis. * ML - MAIN LAB ([facility]) . END OF REPORT * ML=Testing performed at Main Lab DEPARTMENT OF PATHOLOGY, [address] [place] [address] Vinayak Yanez M.D. Director [facility] # [id number] 31 SEE RESULT BELOW Name: PRICE GUARDADO : [address]: Jessie Lazar MD Acct: [id number] Unit: [id number] AGE: 60 Location: [place] [address]- Re10/13/15 Dis: 10/19/15 SEX: M Status: DIS IN SPEC: [id number] GABO: 10/13/15-[address] [facility] [address]: Jessie Lazar MD REQ: [id number] RECD: 10/13/15 STATUS: RES OTHR DR: Gabbie Shell MD _ SOURCE: WOUND SPDESC:KNEE LEFT ORDERED: Anaerobic Cult/R, MRSA/SA SSTI/R, Culture Stain/R, Fungal - Other /R, Acid Fast Stain/U COMMENTS: Verbal to GEMINI CHAWLA by [id number] at 2020 on 10/13/15. Results read back accurately. CLOSTRIDIUM FINDINGS IN ADDITION TO S. AUREUS: Verbal to DR. SHELL by [id number] at 1411 on 10/15/15. Results read back [...] ON NEXT PAGE * ML=Testing performed at [facility] Lab DEPARTMENT OF PATHOLOGY, [address] [place] [address] Vinayak Yanez M.D. Director [facility] # [id number] Patient: PRICE GUARDADO [id number] (Continued) Specimen: [id number] Collected: 10/13/15-1639 Received: 10/13/15 (Continued) Procedure Result [...] These antibiotics are not available in the [facility] Formulary Contact the Microbiology Department for any additional antibiotic reporting. Fungal Cult - Other Sources Preliminary 11/07/15- 1229 ML Fungal Culture No Growth of Mycotic Organisms 3 weeks Acid Fast Stain - Direct Final 10/14/15- 0810 ML CONTINUED ON NEXT PAGE * ML=Testing performed at Main Lab DEPARTMENT OF PATHOLOGY, [address] [place] [address] Vinayak Yanez M.D. Director [facility] # [id number] Patient: PRICE GUARDADO [id number] (Continued) Specimen: [id number] Collected: 10/13/15 Received: 10/13/15 (Continued) Procedure Result Reported Site Acid Fast Stain - Direct Final (continued) 10/14/15809 AFB Smear Result No Acid Fast Bacillus Present (Negative) Preparation By Direct Smear Due to limited sensitivity of the smear, results should be used as an adjunct in evaluating the patient's status and cultural examination is highly recommended for diagnosis. * ML - MAIN LAB ([facility]) . END OF REPORT * ML=Testing performed at Main Lab DEPARTMENT OF PATHOLOGY, [address] [place] [address] Vinayak Yanez M.D. Director [facility] # [id number] 32 SEE RESULT BELOW Name: PRICE GUARDADO : [address]: Jessie Lazar MD Acct: [id number] Unit: [id number] AGE: 60 Location: [facility] Re10/13/15 SEX: M Status: REG SDC SPEC: [id number] GABO: 10/13/15-[address] [facility] [address]: Jessie Lazar MD REQ: [id number] RECD: 10/13/15776 STATUS: RES [facility] DR: Gabbie Shell MD _ SOURCE: [...] performed at Main Lab DEPARTMENT OF PATHOLOGY, [address] [place] [address] Vinayak Yanez M.D. Director [facility] # [id number] 33 SEE RESULT BELOW Name: PRICE GUARDADO : [address]: Jessie Lazar MD Acct: [id number] Unit: [id number] AGE: 60 Location: [facility] 338-01 Re10/13/15 Dis: 10/19/15 SEX: M Status: DIS IN SPEC: [id number] GABO: 10/13/15-[address] [facility] [address]: Jessie Lazar MD REQ: [id number] RECD: 10/13/15 STATUS: COMP HR DR: Gabbie Shell MD _ SOURCE: WOUND SPDESC:KNEE LEFT ORDERED: Tissue Cult/GS/R, Fungal - Other/R, Acid Fast Stain/U COMMENTS: CLOSTRIDIUM FINDINGS IN ADDITION TO S. AUREUS: Verbal to DR. SHELL by [id number] at 1411 on 10/15/15. Results read back [...] performed at Main Lab DEPARTMENT OF PATHOLOGY, [address] [place] [address] Vinayak Yanez M.D. Director [facility] # [id number] Patient: PRICE GUARDADO [id number] (Continued) Specimen: [id number] Collected: 10/13/15 Received: 10/13/15 (Continued) Procedure Result Reported Site Acid Fast Stain - Direct Final (continued) 10/14/15- 817 Due to limited sensitivity of the smear, results should be used as an adjunct in evaluating the patient's status and cultural examination is highly recommended for diagnosis. * ML - MAIN LAB ([facility]) . END OF REPORT * ML=Testing performed at Main Lab DEPARTMENT OF PATHOLOGY, [address] [place] [address] Vinayak Yanez M.D. Director [facility] # [id number] 34 SEE RESULT BELOW Name: PRICE GUARDADO : [address]: Jessie Lazar MD Acct: [id number] Unit: [id number] AGE: 60 Location: [place] [address] Re10/13/15 SEX: M Status: ADM IN SPEC: [id number] GABO: 10/13/15-[address] [facility] [address]: Jessie Lazar MD REQ: [id number] RECD: 10/13/15 STATUS: RES OTHR DR: Gabbie Shell MD _ SOURCE: WOUND SPDESC:KNEE LEFT ORDERED: Anaerobic Cult/R, MRSA/SA SSTI/R, Culture Stain/R, Fungal - Other /R, Acid Fast Stain/U COMMENTS: Verbal to GEMINI REYES CAMMY by [id number] at 2020 on 10/13/15. Results read back [...] performed at Main Lab DEPARTMENT OF PATHOLOGY, [address] [place] [address] Vinayak Yanez M.D. Director [facility] # [id number] Patient: PRICE GUARDADO [id number] (Continued) Specimen: [id number] Collected: 10/13/15 Received: 10/13/15 (Continued) Procedure Result Reported Site Acid Fast Stain - Direct Final (continued) 10/14/15 99 Due to limited sensitivity of the smear, results should be used as an adjunct in evaluating the patient's status and cultural examination is highly recommended for diagnosis. * ML - MAIN LAB ([facility]) . END OF REPORT * ML=Testing performed at Main Lab DEPARTMENT OF PATHOLOGY, [address] [place] [address] Vinayak Yanez M.D. Director [facility] # [id number] 35 SEE RESULT BELOW Name: PRICE GUARDADO : [address]: Jessie Lazar MD Acct: [id number] Unit: [id number] AGE: 60 Location: [facility] 338-01 Re10/13/15 Dis: 10/19/15 SEX: M Status: DIS IN SPEC: [id number] GABO: 10/13/15-[address] [facility] [address]: Jessie Lazar MD REQ: [id number] RECD: 10/13/15 STATUS: COMP OTHR DR: Gabbie Shell MD _ SOURCE: WOUND SPDESC:KNEE LEFT ORDERED: Anaerobic Cult/R, MRSA/SA SSTI/R, Culture Stain/R, Fungal - Other /R, Acid Fast Stain/U COMMENTS: Verbal to GEMINI CHAWLA by [id number] at 2020 on 10/13/15. Results read back accurately. CLOSTRIDIUM FINDINGS IN ADDITION TO S. AUREUS: Verbal to DR. SHELL by [id number] at 1411 on 10/15/15. Results read back accurately. Procedure Result Reported Site Anaerobic Culture Final 10/17/15- 834 ML Organism 1 CLOSTRIDIUM PERFRINGENS Quantity 3+ Anaerobic sensitivities are not routinely performed. Positive isolates will be saved for one week. Please call the Microbiology Laboratory if susceptibility testing is needed. MRSA/S. aureus SSTI PCR Final 10/13/15- 2018 ML Organism 1 MRSA NEGATIVE Organism 2 S.AUREUS POSITIVE Wound/Misc Gram Stain Final 10/15/15845 ML 3+ Neutrophils 4+ Gram Positive Cocci 3+ Gram Positive Bacilli 1+ Gram Negative Bacilli Wound/Misc Culture Final 10/15/15- 845 ML CONTINUED ON NEXT PAGE * ML=Testing performed at Main Lab DEPARTMENT OF PATHOLOGY, [address] [place] [address] Vinayak Yanez M.D. Director [facility] # [id number] Patient: PRICE GUARDADO [id number] (Continued) Specimen: [id number] Collected: 10/13/15-1639 Received: 10/13/15-175 (Continued) Procedure Result [...] These antibiotics are not available in the [facility] Formulary Contact the Microbiology Department for any additional antibiotic reporting. Fungal Cult - Other Sources Final 11/14/15- 1427 ML Fungal Culture No Growth of Mycotic Organisms 4 weeks Acid Fast Stain - Direct Final 10/14/15- 0810 ML CONTINUED ON NEXT PAGE * ML=Testing performed at Main Lab DEPARTMENT OF PATHOLOGY, [address] [place] [address] Vinayak Yanez M.D. Director [facility] # [id number] Patient: PRICE GUARDADO [id number] (Continued) Specimen: [id number] Collected: 10/13/15-1639 Received: 10/13/15-175 (Continued) Procedure Result Reported Site Acid Fast Stain - Direct Final (continued) 10/14/15809 AFB Smear Result No Acid Fast Bacillus Present (Negative) Preparation By Direct Smear Due to limited sensitivity of the smear, results should be used as an adjunct in evaluating the patient's status and cultural examination is highly recommended for diagnosis. * ML - MAIN LAB ([facility]) . END OF REPORT * ML=Testing performed at Main Lab DEPARTMENT OF PATHOLOGY, [address] [place] [address] Vinayak Yanez M.D. Director [facility] # [id number] 36 SOURCE: KNEE, KNEE WOUND SWAB MYCOBACTERIAL CULTURE FINAL No growth after 60 days of incubation. Test Performed by: [address] [address] Rn Mobile: Cam Isidro II, M.D., Ph.D. Procedures Date Code Description Status 05/29/2018 00889 Incision Bone Cortex Foot Completed 05/29/2018 29359 Layer Closure Of Wounds 2.6CM - 7.5CM Completed Neck,Hands,Feet,Genitalia 05/29/2018 61381 Layer Closure Of Wounds 2.6CM - 7.5CM Completed Neck,Hands,Feet,Genitalia 05/29/2018 16807 Debridement Tissue/Muscle/Bone Completed 05/27/2018 72948 EKG, Interpretation Only Completed 04/24/2018 93047 Amputation,Toe;Interphalangeal Joint Completed 04/24/2018 56734 Amputation,Toe;Interphalangeal Joint Completed 04/24/2018 36287 Amputation,Toe;Interphalangeal Joint Completed 04/24/2018 31468 Amputation,Toe;Interphalangeal Joint Completed 04/24/2018 98734 Amputation,Toe;Interphalangeal Joint Completed 04/18/2018 96613 Revascularization,Endovascular W/Atherectomy, Inc Completed Angioplasty 04/18/2018 14132 Revascularization,Endovascular W/Atherectomy, Inc Completed Angioplasty 04/18/2018 32107 Angio Extremity, Bilateral Completed 04/18/2018 96835 Ultrasound Guidance For Vascular Access Completed 04/18/2018 95615 Moderate Sedation Services; Same Phys Intl 15 Mins; PT >=5 Completed Years 04/18/2018 26253 Moderate Sedation Services; Same Phys Each Additional 15 Completed Mins 12/10/2016 83397 ECHO Transthorasic Realtime 2D W Doppler & Color Flow Hosp Completed 12/09/2016 79181 EKG, Interpretation Only Completed 01/10/2016 12514 Treadmill Interp/Report Only Completed 01/10/2016 01251 Stress Test Supervsn W/Out I/R Completed 10/15/2015 30937 Arthroscopy,Knee For Infection,Lavage & Drainage Completed 10/15/2015 10561 Arthroscopy,Knee For Infection,Lavage & Drainage Completed 10/15/2015 31121 Arthroscopy,Knee For Infection,Lavage & Drainage Completed 10/15/2015 34003 Arthroscopy,Knee For Infection,Lavage & Drainage Completed 10/13/2015 43240 Arthroscopy,Knee,Meniscectomy Medial Or Lateral Completed 10/13/2015 58961 Arthroscopy,Knee,Meniscectomy Medial Or Lateral Completed 10/13/2015 97070 Arthroscopy,Knee For Infection,Lavage & Drainage Completed 05/18/2013 39731 EEG Recording Awake & Asleep Completed 03/13/2013 97619 Color Flow Doppler/Interp & Reprt Completed 03/13/2013 93187 Pulse Wave/Continuous-Interp.RPT Completed 03/13/2013 65860 Echocardiography, Transesophageal, Real Time W/Image 2D Completed W/W/O M-M Encounters Type Date Location Provider Dx Diagnosis Office Visit 07/23/2018 [facility] Mahan I70.222 [facility] [place] 12:30p [facility] arteries of extremities w rest pain, left leg Office Visit 06/16/2018 [facility] Madalyn Jordan 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 Office Visit 06/03/2018 [facility] T81.31xD Disruption of 2:51p Assstacy,trevor Bradley, external Hospitalists DIRECTOR OF HEMOPHILIA operation (surgical) wound, NEC, subs F32.9 Major depressive disorder, single episode, unspecified N17.9 Acute kidney failure, unspecified E11.9 Type 2 diabetes mellitus without complications I73.9 Peripheral vascular disease, unspecified Office Visit 06/02/2018 [facility] T81.31xD Disruption of 2:50p Asstrevor kumar, external Hospitalists DIRECTOR OF HEMOPHILIA operation (surgical) wound, NEC, subs F32.9 Major depressive disorder, single episode, unspecified N17.9 Acute kidney failure, unspecified E11.9 Type 2 diabetes mellitus without complications I73.9 Peripheral vascular disease, unspecified Office Visit 06/01/2018 [facility] T81.31xD Disruption of 2:50p Assoc, Suzie Bradley, external Hospitalists DIRECTOR OF HEMOPHILIA operation (surgical) wound, NEC, subs F32.9 Major depressive disorder, single episode, unspecified N17.9 Acute kidney failure, unspecified E11.9 Type 2 diabetes mellitus without complications I73.9 Peripheral vascular disease, unspecified Office Visit 05/31/2018 [facility] T81.31xA Disruption of 2:50p Assoc,trevor Bradley, external Hospitalists DIRECTOR OF HEMOPHILIA operation (surgical) wound, NEC, init F32.9 Major depressive disorder, single episode, unspecified N17.9 Acute kidney failure, unspecified E11.9 Type 2 diabetes mellitus without complications I73.9 Peripheral vascular disease, unspecified Office Visit 05/30/2018 [facility] T81.31xD Disruption of 2:49p trevor Jackson NP external Hospitalists operation (surgical) wound, NEC, subs I73.9 Peripheral vascular disease, unspecified E11.9 Type 2 diabetes mellitus without complications Office Visit 05/29/2018 [facility] T81.31xD Disruption of 2:49p trevor Jackosn, MARJORIE external Hospitalists operation (surgical) wound, NEC, subs N17.9 Acute kidney failure, unspecified I73.9 Peripheral vascular disease, unspecified E11.9 Type 2 diabetes mellitus without complications Office Visit 05/28/2018 12:39p [facility] Jamar Jordan T87.81 Dehiscence of Infectious Gabrielle Pérez amputation stump Diseases T87.44 Infection of amputation stump, left lower extremity 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 I73.9 Peripheral vascular disease, unspecified Z71.6 Tobacco abuse counseling Office Visit 05/08/2018 1:40p [facility] Jamar Jordan Z89.412 Acquired Infectious Gabrielle Pérez absence of Diseases left great toe 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 Office Visit 04/22/2018 [facility] Jose Juan King, M86.172 Other acute 1:30p Services [facility] [place] leon, left [place] ankle and foot Office Visit 04/19/2018 [facility] Sami Nicholson MD L97.513 Non-prs chronic 11:31a Assoc,pc ulcer oth prt right Hospitalists foot w necros muscle 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 I73.9 Peripheral vascular disease, unspecified Office Visit 04/19/2018 [facility] Jose Juan King, Z47.89 Encounter for 9:33a [facility] [place] MATTHEWS other orthopedic aftercare Office Visit 04/18/2018 [facility] L97.513 Non-prs chronic 11:30a Assoc,trevor Lambert [place] ulcer oth prt Hospitalists right foot w necros muscle 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 I73.9 Peripheral vascular disease, unspecified F32.9 Major depressive disorder, single episode, unspecified G25.0 Essential tremor Office Visit 04/17/2018 11:30a [facility] Joe L97.513 Non-prs Assoc,trevor Ramírez M.D. chronic ulcer Hospitalists oth prt right foot w necros muscle 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 Office Visit 04/16/2018 9:11a [facility] Bautista I70.213 [facility] [place] [facility]an M.D. arteries of extrm w intrmt romelia, bi legs M87.878 Other osteonecrosis, left toe(s) Office Visit 04/16/2018 1:09p [facility] Steffanie I73.9 Peripheral Assoc,trevor Bradley, vascular disease, Hospitalists DIRECTOR OF HEMOPHILIA unspecified E11.51 Type 2 diabetes w diabetic 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 Office Visit 04/15/2018 12:44p [facility] For Jamar Jordan E11.52 Type 2 diabetes Elizabeth Pérez M.D. w diabetic Diseases peripheral angiopathy w gangrene Z86.73 Prsnl hx of TIA (TIA), and cereb infrc w/o resid deficits Office Visit 04/15/2018 11:29a [facility] Michelle Siu, L97.513 Non- prs Assoc,pc DO chronic ulcer Hospitalists oth prt right foot w necros muscle E11.9 Type 2 diabetes mellitus without complications F32.9 Major depressive disorder, single episode, unspecified Office Visit 04/15/2018 2:11p [facility] Jyoti Mcdaniels, M87.078 [facility] [place] aseptic necrosis C.M.A. of left toe(s) L03.032 Cellulitis of left toe Office Visit 12/10/2016 [facility] Phoenix Valdes, G45.9 Transient 2:49p Clinic MD cerebral ischemic attack, unspecified Office Visit 12/10/2016 [facility] Tiffanie R07.2 Precordial pain 3:56p Assoc,pc Hospitalists MARJORIE Hope R55 Syncope and collapse E11.9 Type 2 diabetes mellitus without complications G45.9 Transient cerebral ischemic attack, unspecified Office Visit 12/09/2016 3:55p [facility] Orlin Junior R55 Syncope and Assoc,pc II, M.D. collapse Hospitalists R07.2 Precordial pain E11.9 Type 2 diabetes mellitus without complications G45.9 Transient cerebral ischemic attack, unspecified Office 12/09/2016 [facility] Sae Major, G45.9 Transient Visit 1:48p Clinic MFreda cerebral ischemic attack, unspecified Office 01/10/2016 [facility] Sadie Joshi R07.9 Chest pain, Visit 12:51p Assoc,pc Hospitalists MARJORIE Tatum unspecified N17.9 Acute kidney failure, unspecified E11.9 Type 2 diabetes mellitus without complications I10 Essential (primary) hypertension Office Visit 01/09/2016 12:50p [facility] Estefanía Lewis, R07.9 Chest pain , Assoc,pc N.P. unspecified Hospitalists E11.9 Type 2 diabetes mellitus without complications N17.9 Acute kidney failure, unspecified I10 Essential (primary) hypertension Office Visit 11/30/2015 [facility] Jamar LeeAdrianna M00.062 Staphylococcal 3:20p For Infectious Mechelle Pérez. arthritis, left Diseases knee Office Visit 11/16/2015 [facility] Jamar LeeAdrianna M00.062 Staphylococcal 3:20p For Infectious Leeanne PérezD. arthritis, left Diseases knee B96.7 Clostridium perfringens causing diseases classd elswhr Office Visit 11/03/2015 [facility] Jamar Julian M00.062 Staphylococcal 2:00p For Infectious Mechelle Pérez. 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 arthritis, left Diseases knee R19.7 Diarrhea, unspecified V99.xxxA Unspecified transport accident, initial encounter B96.7 Clostridium perfringens causing diseases classd elswhr Office Visit 10/18/2015 [facility] Sanchez M00.062 Staphylococcal 10:02a Asstrevor kumar M.D. 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 arthritis, left Hospitalists knee E11.8 Type 2 diabetes mellitus with unspecified complications Office Visit 10/13/2015 [facility] Tiffanie M00.062 Staphylococcal 9:58a Asstrevor kumar, MARJORIE arthritis, left Hospitalists knee E11.8 Type 2 diabetes mellitus with unspecified complications Office Visit 10/13/2015 7:00a [facility] Derek Hudson, M25.562 Pain in left Of CDevin MATTHEWS knee M25.462 Effusion, left knee S81.012A Laceration without foreign body, left knee, init encntr B96.89 Oth bacterial agents as the cause of diseases classd elswhr Office Visit 07/29/2013 Oscar Macario 333.1 Tremor Essential & 8:30a Gaurang Meadows M.D. Other Forms Services [facility] Office Visit 06/19/2013 Oscar Macario 437.9 Cerebrovascular 11:30a Gaurang Meadows M.D. Disease Or Lesion Services Of [facility] Unspec Office Visit 05/12/2013 Oscar Macario 345.40 Local-Related 10:45a Gaurang Meadows M.D. Epilepsy W/O Mention Services Of [facility] Of Intractable Epilepsy 438.89 Cerebrovascular Disease Late Effect Other 331.83 Mild Cognitive Impairment So Stated Office Visit 03/13/2013 [facility] Gaurang Bradford 435.9 TIA Ischemia 12:53p Services [facility] Gabrielle Warren Cerebral Transient Unspec Office Visit 03/13/2013 [facility] Nasima Colmenares, 784.51 Dysarthria 2:43p Assoctrevor D.OAdrianna Hospitalists 272.2 Hyperlipidemia Mixed 435.9 TIA Ischemia Cerebral Transient Unspec 305.1 Tobacco Use Disorder Office Visit 03/12/2013 [facility] Gaurang Bradford 435.9 TIA Ischemia 12:52p [facility] Warren M.D. 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
--- NOTE | 2018-09-07 10:10 | ED ---
HPI Chest Pain - HPI Summary HPI Summary: This patient is a 63 year old M presenting to [facility] with a chief complaint of RUQ pain accompanied by nausea and vomiting since 5 days ago. The patient rates the pain 4/10 in severity. Patient reports diarrhea, rhinorrhea, wheezing, and edema of the LE. Patient denies bloody stool, fever, abd pain, or SOB. The patient reports that a needle may have gotten stuck in the right side of his abd where insulin is injected. The patients big left toe is urby from an amputation several weeks ago, which became infected afterward. The second toe has redness and nail discoloration. The nurse stated that he has +2 pitting pedal edema. Pt reports that he last vomited 5 minutes ago. Pt mentioned that his leg was re-vascularized (left leg) after the amputation to restore blood flow. The patient did not take Tylenol before coming to the ED. NKDA. PMHX MRSA , appendicitis, Diabetes, tremor, seizures, stroke. - History of Current Complaint Chief Complaint: EDAbdPain Time Seen by Provider: 09/07/18 09:39 Hx Obtained From: Patient Onset/Duration: Started Days Ago - 5 Timing: Constant Initial Severity: Moderate Current Severity: Moderate Pain Intensity: 4 Pain Scale Used: 0-10 Numeric Chest Pain Location: Discrete at:, Right Anterior Associated Signs and Symptoms: Positive: Chest Pain, Nausea, Vomiting, Wheezing , Edema. Negative: Shortness of Breath, Fever, Abdominal Pain - Additional Pertinent History Primary Care Physician: ARABELLA - Allergy/Home Medications Allergies/Adverse Reactions: Allergies Allergy/AdvReac Type Severity Reaction Status Date / Time No Known Allergies Allergy Verified 09/07/18 09:31 PMH/Surg Hx/FS Hx/Imm Hx Endocrine/Hematology History: Reports: Hx Diabetes - IDDM, Other Endocrine/ Hematological Disorders - ankylosing spondylitis Cardiovascular History: Reports: Hx Angina, Hx Coronary Artery Disease, Hx Hypercholesterolemia, Hx Peripheral Vascular Disease, Other Cardiovascular Problems/Disorders - carotid stenosis, intermediate coronary syndrome Denies: Hx Hypertension, Hx Pacemaker/ICD Respiratory History: Reports: Other Respiratory Problems/Disorders - smoker Denies: Hx Asthma, Hx Chronic Obstructive Pulmonary Disease (COPD) History: Denies: Hx Dialysis, Hx Renal Disease Musculoskeletal History: Reports: Hx Back Problems - spinal fusion, laminerctomy decompression, Hx Orthopedic Injury - septic arthritis left knee, Other Musculoskeletal History - hx osteomylitis left ankle and foot, reports hx multiple fx in body Sensory History: Reports: Hx Contacts or Glasses - glasses Denies: Hx Hearing Aid Opthamlomology History: Reports: Hx Contacts or Glasses - glasses Neurological History: Reports: Hx Nerve Disease, Hx Seizures - reports last was 4 yrs ago - sees dr jenkins, Hx Spinal Cord Injury, Hx Transient Ischemic Attacks (TIA), Other Neuro Impairments/Disorders - essential tremors Denies: Hx Dementia Psychiatric History: Reports: Hx Depression, Hx Inpatient Treatment - [place] [facility] [place], Hx Suicide Attempt - SI/ATTEMPT 05/2010 Denies: Hx Anxiety, Hx Eating Disorder, Hx Panic Disorder, Hx of Violent Episodes Against Others - Surgical History Surgery Procedure, Year, and Place: LSP laminectomy 1970 - . LSP fusion. carotid endartectomy 2014[facility]. [place] [facility] [facility] [place] - [place]. T&A. left great toe amputation AND revascularization of left leg- no stents placed - 03/2018 Hx Anesthesia Reactions: No - Immunization History Date of Tetanus Vaccine: Shot "within past ten years" Date of Influenza Vaccine: unk Infectious Disease History: Yes Infectious Disease History: Denies: Traveled Outside the [place] in Last 30 Days - Family History Known Family History: Positive: Diabetes - Social History Alcohol Use: None Hx Substance Use: No Substance Use Type: Reports: Other Substance Use Comment - Amount & Last Used: uses cbd daily Hx Tobacco Use: Yes Smoking Status (MU): Former Smoker Type: Cigarettes Amount Used/How Often: 1 ppd for 50 yrs Length of Time of Smoking/Using Tobacco: 40 years Have You Smoked in the Last Year: Yes Review of Systems Negative: Fever Positive: Nasal Discharge Positive: Chest Pain Positive: Other - wheezing. Negative: Shortness Of Breath Positive: Vomiting, Diarrhea, Nausea. Negative: Abdominal Pain, Other - bloody stool Positive: Edema - LE Positive: Rash - left toes All Other Systems Reviewed And Are Negative: Yes Physical Exam - Summary Physical Exam Summary: GENERAL: Patient is a well-developed and nourished male who is lying comfortable in the stretcher. Patient is not in any acute respiratory distress. HEAD AND FACE: Normocephalic EYES: PERRLA, EOMI x 2. EARS: Hearing grossly intact. MOUTH: Oropharynx within normal limits. NECK: Supple, trachea is midline, no adenopathy, no JVD, no carotid bruit. CHEST: Symmetric, no tenderness at palpation LUNGS: Clear to auscultation bilaterally. Crackles in the left lower lobe. CVS: Regular rate and rhythm, S1 and S2 present, no murmurs or gallops appreciated. ABDOMEN: Soft. TTP. Bowel sounds are normal. No abdominal abnormal pulsations. EXTREMITIES: Full ROM in all major joints. Partial amputation to the left great toe with surrounding erythema. On the second left toe, there is an area of ulceration and erythema. 2+ bilateral pitting pedal edema. NEURO: Alert and oriented x 3. No acute neurological deficits. Speech is normal and follows commands. SKIN: Dry and warm Triage Information Reviewed: Yes Vital Signs On Initial Exam: Initial Vitals Temp Pulse Resp BP Pulse Ox 97.2 F 109 16 131/99 99 09/07/18 09:28 09/07/18 09:28 12 09:28 09/07/18 09:28 09/07/18 09:28 Vital Signs Reviewed: Yes Diagnostics - Vital Signs Vital Signs Temp Pulse Resp BP Pulse Ox 09/07/18 10:00 150 13 82 09/07/18 09:43 114 23 161/106 100 09/07/18 09:28 97.2 F 109 16 131/99 99 - Laboratory Result Diagrams: 09/07/18 10:00 09/07/18 10:00 Lab Statement: Any lab studies that have been ordered have been reviewed, and results considered in the medical decision making process. - Radiology CXR Radiology Interpretation Completed By: Radiologist Summary of Radiographic Findings: No evidence for acute intrathoracic disease. ED physician has reviewed this report. Foot Radiology Interpretation Completed By: Radiologist Summary of Radiographic Findings: No radiographic evidence for osteomyelitis. ED physician has reviewed this report - CT Abd/Pelvis CT Interpretation Completed By: Radiologist Summary of CT Findings: Mild inflammatory infiltrate/pneumonia at the RIGHT lung base. No pathologic process of the alimentary tract evident. Nonobstructing 3 mm stone upper pole LEFT kidney without gross change. Negative for hydronephrosis. ED physician has reviewed this report - EKG 10:01 Cardiac Rate: Tachycardia - 102 bpm EKG Rhythm: Sinus Tachycardia Summary of EKG Findings: LVH with SDT wave changes Chest Pain Course/Dx - Course Course Of Treatment: This patient is a 63 year old M presenting to [facility] with a chief complaint of RUQ pain accompanied by nausea and vomiting since 5 days ago. The patient rates the pain 4/10 in severity. Patient reports diarrhea, rhinorrhea, wheezing, and edema of the LE. Patient denies bloody stool, fever, abd pain, or SOB. An EKG reveals sinus tachycardia at 102 bpm, LVH with SDT wave changes. CXR reveals, per radiologist, No evidence for acute intrathoracic disease. Foot X-ray reveals, per radiologist, No radiographic evidence for osteomyelitis. CT abd/pelvis reveals, Mild inflammatory infiltrate /pneumonia at the RIGHT lung base. No pathologic process of the alimentary tract evident. Nonobstructing 3 mm stone upper pole LEFT kidney without gross change. Negative for hydronephrosis. ED physician has reviewed this radiology report. Test results with no significant abnormalities except for lactic acid 4.2 H. In the ED course the patient was given Fentanyl, IV fluids, Metoclopramide. We discussed patient care with Dr. Siu, hospitalist, and they recommended admission. The patient is agreeable with this plan. - Diagnoses Provider Diagnoses: PNA (pneumonia), Vomiting, Abdominal pain - Provider Notifications Discussed Care Of Patient With: Michelle Siu Time Discussed With Above Provider: 14:07 Instructed by Provider To: Admit As Inpatient Discharge - Sign-Out/Discharge Documenting (check all that apply): Patient Departure - admission - Discharge Plan Condition: Stable Disposition: ADMITTED TO [facility] - Billing Disposition and Condition Condition: STABLE Disposition: Admitted to [facility] - Attestation Statements Document Initiated by Sonya: Yes Documenting Morganibe: Peter Moran Provider For Whom Sonya is Documenting (Include Credential): Kavon Perez MD Scribe Attestation: Peter Ugalde scribed for Kavon Perez MD on 09/07/18 at 1731. Scribe Documentation Reviewed: Yes Provider Attestation: The documentation as recorded by the Peter shah accurately reflects the service I personally performed and the decisions made by me, Kavon Perez MD Status of Scribe Document: Viewed
[2018-09-07] MEDS ORDERED: fentaNYL* 50 MCG/ML 2 ML VIAL (100 MCG VIAL) IV SLOW PU ONE (10:11)
[2018-09-07] MEDS ORDERED: Metoclopramide IV* 5 MG/ML 2 ML VIAL IV ONE (10:11)
[2018-09-07] MEDS ORDERED: NS 0.9% 1000 ML* 1,000 ML IV ONE ×2 (10:11→13:16)
[2018-09-07 10:27] LABS: ABS Basophils 0.1 10^3/ul (0-0.2); ABS Eosinophils 0.2 10^3/ul (0-0.6); ABS Lymphocytes 0.5 10^3/ul (1.0-4.8); ABS Monocytes 0.6 10^3/ul (0-0.8); ABS Nucleated RBC 0 10^3/ul; Eosinophil % 2.2 %; Hematocrit 35 % (42-52); Hemoglobin 11.8 g/dl (14.0-18.0); Lymphocyte % 5.2 %; Mean Corpuscular HGB Conc 33 g/dl (31-36); Mean Corpuscular Hemoglobin 28 pg (27-31); Mean Corpuscular Volume 85 fL (80-94); Mean Platelet Volume 7.3 fL (7.4-10.4); Nucleated Red Blood Cells % 0; Platelet Count 195 10^3/ul (150-450); Red Blood Count 4.15 10^6/ul (4.00-5.40); Red Cell Distribution Width 15 % (10.5-15); White Blood Count 9.4 10^3/ul (3.5-10.8)
[2018-09-07 10:30] LABS: INR 0.9 (0.77-1.02)
[2018-09-07 13:05] LABS: Urine Appearance Clear; Urine Blood 1+ (Negative); Urine Color Yellow; Urine Ketones Negative (Negative); Urine Protein 3+(>=500 mg/dL) (Negative); Urine Red Blood Cell Trace(0-2/hpf) (Absent); Urine Specific Gravity 1.017 (1.010-1.030); Urine Urobilinogen Negative (Negative); Urine White Blood Cell Trace(0-5/hpf) (Absent)
[2018-09-07] MEDS ORDERED: Azithromycin IV(*) 500 MG in NS 0.9% 250 ML* 250 ML IVPB ONE (14:03)
[2018-09-07] MEDS ORDERED: cefTRIAXone(*) 1 GM in NS 0.9% 100 ML* 100 ML IVPB ONE (14:03)
[2018-09-07] MEDS ORDERED: cefTRIAXone(*) 1 GM in NS 0.9% 50 ML* 50 ML IVPB ONE (15:00)
[2018-09-07] MEDS ORDERED: Azithromycin IV(*) 250 MG in NS 0.9% 250 ML* 250 ML IVPB SCH (15:00)
[2018-09-07] MEDS ORDERED: Ondansetron INJ* 2 MG/ML VIAL IV PRN (15:07)
[2018-09-07] MEDS: Clopidogrel TAB* 75 MG PO SCH (18:01)
[2018-09-07] MEDS ORDERED: buPROPion SR TAB.SR* 150 MG PO SCH (21:00)
[2018-09-07] MEDS: Cilostazol TAB* 100 MG PO SCH (21:51)
[2018-09-07] MEDS: amLODIPine TAB* 5 MG PO SCH (21:51)
[2018-09-07] MEDS: Sertraline* 100 MG TAB PO SCH (21:51)
[2018-09-07] MEDS: Heparin VIAL(*) 5000 UNITS/ML VIAL (FIVE THOUSAND) SUBCUT SCH (21:51)
--- NOTE | 2018-09-07 21:52 | HP ---
CC: Dr. Gabbie Shell * HISTORY AND PHYSICAL: DATE OF ADMISSION: 09/07/18 PROVIDER: Aissatou Castellanos NP. ATTENDING PHYSICIAN: Dr. Sami Nicholson * (report dictated by Aissatou Castellanos NP). PRIMARY CARE PROVIDER: Dr. Gabbie Shell. CHIEF COMPLAINT: Right upper quadrant pain and upper respiratory symptoms. HISTORY OF PRESENT ILLNESS: Mr. Doty is a 63-year-old male with a complex past medical history including insulin-dependent type 2 diabetes, for which he wears an insulin pump; history of long-term tobacco abuse, recently quitting; peripheral vascular disease, status post left foot revascularization; history of coronary artery disease; history of CVA; essential tremor; history of mild traumatic brain injury; history of left great toe gangrene, osteomyelitis, status post amputation on 04/24/18, who then developed wound dehiscence, MRSA infection and was hospitalized at the end of April and underwent an I and D, who presents to the emergency department today with main complaint of right upper quad pain for approximately 5 days. He reports approximately a week ago, he developed upper respiratory symptoms with a cough, nasal congestion, runny nose as well as nausea and vomiting. He reports the nausea and vomiting has been intermittent throughout the last week. He reports the right upper quad pain did start after the nausea and vomiting. He reports diarrhea; however, he has this chronically at his baseline and it is not any worse. He states that every day he has nausea upon waking and vomits once or twice, then feels better throughout the day with some nausea in the afternoon and then reporting he feels normal in the evening and is able to eat a full meal without any nausea or vomiting. In the emergency department, he continues to have nausea and reports the last time he vomited was this morning. He denies a history of gastroparesis. His right upper quad pain hurts when he rolls into his right side or change his positions or when he vomits. He denies fevers, chills. No shortness of breath or chest pain. He reports he continues to cough, bringing up occasional yellow sputum. In regards to the patient's left foot, he reports that he has been followed every [address] King, orthopedic surgeon, in which he last saw him this past 09/01/18. He reports that his toe has been healing well. The emergency department nurse had concern of his second toe on the left foot that is mildly red. Per patient, he did try to cut his toenail approximately a week ago and ended up causing a mild cut with bleeding. The patient also reports of a right lateral mid abdominal raised red area, which he thinks was the placement of his insulin pump and thought initially may be a needle was stuck. Per the patient's , this area has been there for quite some time. On palpation, the patient reports it is mildly tender, no noted foreign object. Currently in the emergency department, the patient reports that he feels a little better with less nausea. Per the patient, he initially went to urgent care and due to his history, he was sent to the emergency department for further evaluation. PAST MEDICAL HISTORY: 1. Insulin type 2 diabetes. The patient wears an insulin pump. 2. History of recurrent TIAs. 3. History of CVA. 4. History of coronary artery disease. 5. Essential tremor. 6. Depression. 7. History of septic knee. 8. Hypertension. 9. Mild traumatic brain injury. 10. Status post left great toe amputation with toe gangrene and osteomyelitis, surgery on 04/24/18 with polymicrobial wound infection with MRSA with a wound dehiscence infection in late April 2018. 11. Chronic diarrhea. 12. Peripheral arterial disease, status post intervention. 13. Long-term tobacco abuse, recently quitting in summer. HOME MEDICATIONS: 1. Basal insulin via insulin pump. Per the patient, he gets himself 1 or 2 pumps depending on his blood sugar, reporting that 1 pump equals 7 units and 2 pumps equal 14 units. 2. Metformin 1000 mg p.o. b.i.d. 3. Glipizide 10 mg p.o. b.i.d. 4. Wellbutrin SR 300 mg p.o. b.i.d. 5. Norvasc 5 mg p.o. b.i.d. 6. Zoloft 100 mg p.o. b.i.d. 7. Lamictal XR 200 mg p.o. daily. 8. Plavix 75 mg p.o. q.p.m. 9. Pletal 100 mg p.o. b.i.d. 10. CBD, unknown dosage, 1 cap p.o. q.6 hours p.r.n. 11. Aspirin 81 mg p.o. daily. ALLERGIES: No known allergies. FAMILY HISTORY: Reviewed and noncontributory. SOCIAL HISTORY: The patient smoked a pack of cigarettes a day for 50 years, recently quitting in the summer of 2017. Denies any alcohol or illicit drug abuse. 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 He lives at home with his , Maryam, who is his healthcare proxy. He is a full code. REVIEW OF SYSTEMS: A 14-point review of systems was performed. All the pertinent positives and negatives are mentioned in the history of present illness, otherwise are negative. PHYSICAL EXAMINATION GENERAL APPEARANCE: A 63-year-old male, alert and oriented x3, sitting up in the emergency department stretcher, in no acute distress, a good historian, appears nontoxic. VITAL SIGNS: Temperature 98.5, heart rate 100, respirations 17, O2 sat 94% on room air, blood pressure is 160/88. HEENT: Head is normocephalic, atraumatic. Pupils are equal and reactive to light. Oropharynx is clear. Moist mucous membranes. NECK: Supple. LUNGS: Clear to auscultation bilaterally. Good aeration throughout. CARDIAC: S1, S2. Regular rate and rhythm. Slightly tachycardic. ABDOMEN: Obese, round, soft. Normal bowel sounds throughout. Right lateral mid quad has an insulin pump; just below that is a noted circular, raised, quarter- sized erythema, hard nodule possibly, slightly soft in the middle, slightly tender. The patient reports right upper quad tenderness with palpation as well as some minor tenderness in left upper quad. No guarding. EXTREMITIES: Moves all extremities. Left foot has noted partial big toe amputation, second toe has mild erythema and dried scab noted near the toenail. No exudate. No open wounds noted. No tenderness. NEUROLOGIC: Alert and oriented x3. No focal deficits noted. DIAGNOSTIC STUDIES/LAB DATA: WBC is 9.4, RBC 4.15, Hgb 11.8, HCT 35, MCV 85, MCH 28, MCHC 33, RDW 15, platelet count 195. INR 0.90. Sodium 136, potassium 4.2, chloride 101, carbon dioxide 26, anion gap 9, BUN 19, creatinine 2.09, glucose 137, lactic acid 4.2, calcium 10.1, magnesium 1.9. Total bilirubin 0.40 , AST 14, ALT 11, alkaline phosphatase 74. Troponin 0.03. C-reactive protein 46.81. BMP 77. Total protein 7.3, albumin 4.0, amylase 50, lipase 26. INR of 0.90. Urinalysis: 3+ protein, 1+ blood, squamous epithelial cells, hyaline cast present, 1+ glucose. EKG: Sinus tachycardia at the rate of 105. Comparison to prior EKG on 07/25/18 , no Q-wave changes noted. Left foot x-ray, impression: "No radiographic evidence for osteomyelitis." Abdomen and pelvis CT, impression: "Mild inflammatory infiltrate/pneumonia at the right lung base. No pathologic process of the alimentary tract evident. Nonobstructing 3 mm stone upper pole left kidney without gross change. Negative for hydronephrosis." ASSESSMENT AND PLAN: Mr. Doty is a 63-year-old male with a complex past medical history as stated above, who presents to the emergency department from urgent care with complaint of right upper quadrant pain, initially concerned for cholecystitis, who was sent to the emergency department for further evaluation and workup. The patient also reports a 1-week history of developing upper respiratory symptoms with rhinorrhea, nasal congestion, cough with occasional sputum production as well as nausea and vomiting intermittently for the past week, who then developed right upper quad pain/tenderness. In the emergency department, he was found to have a right lower lobe pneumonia and presented with an elevated lactic acid of 4.5. 1. Possible sepsis secondary to pneumonia. I question the sepsis as the patient is dehydrated and the lactic acid could be secondary to dehydration. He has mild tachycardia, which is not uncommon as per the patient's past hospitalization. However, he has been given ceftriaxone and azithromycin in the emergency department and 2 L of normal saline. I plan to repeat lactic now. Blood cultures have been sent. Will send urine antigen for Legionella and Streptococcus pneumoniae. I question if this is a possible aspiration pneumonia from the patient's nausea and vomiting. Will plan to continue azithromycin and ceftriaxone at this time. The patient has no leukocytosis. He has had no fevers or chills. Will also send influenza. 2. Nausea and vomiting, and right upper quadrant pain. I suspect as though the patient's right upper quadrant pain is from his nausea and vomiting. CT of the abdomen is unremarkable and his pattern of nausea and vomiting is odd for a viral illness, but I suppose possible. It is possible the patient has gastroparesis, he denies any history; however, with his history of being a long- term diabetic, this is certainly possible. I was going to start the patient on Reglan; however, with his SSRIs, this is a contraindication and could cause EPS symptoms and patient already has a tremor. We will continue Zofran p.r.n., which has been helping the patient in the emergency department. Gastric emptying study has been ordered for the am. He is to see the lens grinder next week for his chronic diarrhea 3. Possible small abscess versus boil on the right mid abdomen. Will obtain an soft tissue ultrasound. He thinks this is where his insulin pump was previously placed; however, per his , she thinks this has been there for quite a while. 4. Recent left toe surgical wound infection. This appears to be healing well. He is followed by Dr. King every 2 weeks, has recently seen approximately a week ago. Foot x-ray was obtained in the emergency department, which does not show any evidence of osteomyelitis. There is some concern about the second left toe being slightly red, and the patient does report clipping his toenail cutting himself. This will need to be watched carefully. The patient's CRP is 46.81. This is up from 06/23/18 where CRP was 4.23. I recommend the patient see a Dietetic Technician Registered. 5. [id number] kidney injury. Most likely this is secondary to dehydration. As stated above, the patient has received 2 L of fluid in the emergency department. We will re-check a BMP in the morning. 6. Type 2 diabetes. Plan to continue the patient's insulin pump. I discussed this with the patient and the nurses. We will monitor blood sugars q.a.c. We will hold metformin and glipizide. Monitor the patient's blood sugars closely as he may need extra coverage. 7. Hypertension. Continue home medications, Norvasc. 8. Depression. Continue Wellbutrin, Lamictal and Zoloft. 9. History of peripheral vascular disease. Status post intervention. Continue Plavix, Pletal, and aspirin. 10. DVT prophylaxis. Heparin subcu. 11. Code status. Full code. TIME SPENT: Approximately 60 minutes was spent on this admission. AISSATOU CASTELLANOS, DIGITAL EDITOR [id number]/[facility] #: [id number] [facility]ENT[facility]
[2018-09-08] MEDS: Heparin VIAL(*) 5000 UNITS/ML VIAL (FIVE THOUSAND) SUBCUT SCH ×3 (05:09→21:45)
[2018-09-08 06:42] LABS: ABS Basophils 0 10^3/ul (0-0.2); ABS Eosinophils 0.3 10^3/ul (0-0.6); ABS Lymphocytes 0.5 10^3/ul (1.0-4.8); ABS Monocytes 0.6 10^3/ul (0-0.8); ABS Neutrophils 5.3 10^3/ul (1.5-7.7); ABS Nucleated RBC 0 10^3/ul; Eosinophil % 3.8 %; Hematocrit 32 % (42-52); Lymphocyte % 6.9 %; Mean Corpuscular HGB Conc 34 g/dl (31-36); Mean Corpuscular Hemoglobin 29 pg (27-31); Mean Corpuscular Volume 85 fL (80-94); Mean Platelet Volume 7.1 fL (7.4-10.4); Nucleated Red Blood Cells % 0; Platelet Count 171 10^3/ul (150-450); Red Cell Distribution Width 14 % (10.5-15); White Blood Count 6.7 10^3/ul (3.5-10.8)
[2018-09-08 06:57] LABS: EGFR Non-African American 42.7 (>60)
--- NOTE | 2018-09-08 10:30 | PN ---
Subjective Date of Service: 09/08/18 Interval History: Mr. Doty feels better today. He is less SOB and his cough has decreased. He continues to report some abd discomfort, but is hungry and looking forward to being able to eat later today. He denies any pain. Denies CP, N/V/D, dizziness. Family History: Unchanged from Admission Social History: Unchanged from Admission Past Medical History: Unchanged from Admission Objective Active Medications: Amlodipine Besylate (Norvasc Tab*) 5 mg PO BID [facility] Aspirin (Aspirin 81 Mg Chew Tab*) 81 mg PO QAM [facility] Bupropion HCl (Bupropion Xl*) 300 mg PO DAILY [facility] Cilostazol (Pletal Tab*) 100 mg PO BID [facility] Clopidogrel Bisulfate (Plavix Tab*) 75 mg PO QPM [facility] Doxycycline Hyclate (Vibramycin Cap(*)) 100 mg PO BID [facility] Heparin Sodium (Porcine) (Heparin Vial(*)) 5,000 units SUBCUT Q8HR [facility]GUS Ceftriaxone Sodium 1 gm/ (Sodium Chloride) 50 mls @ 200 mls/hr IVPB Q24H ANGUS Lamotrigine (Lamictal Xr (Nf)) 200 mg PO DAILY [facility] Ondansetron HCl (Zofran Inj*) 4 mg IV Q4H PRN NAUSEA Sertraline HCl (Zoloft*) 100 mg PO BID [facility] Vital Signs - 8 hr 09/08/18 09/08/18 04:04 08:11 Temperature 98.0 F 97.3 F Pulse Rate 100 92 Respiratory 16 16 Rate Blood Pressure 167/70 153/82 (mmHg) O2 Sat by Pulse 95 93 Oximetry Oxygen Devices in Use Now: None Appearance: Elderly male laying in bed in NAD Eyes: No Scleral Icterus Ears/Nose/Mouth/Throat: Mucous Membranes Moist Neck: NL Appearance and Movements; NL JVP, Trachea Midline Respiratory: Symmetrical Chest Expansion and Respiratory Effort, Clear to Auscultation Cardiovascular: NL Sounds; No Murmurs; No JVD, RRR Abdominal: - - Soft, RUQ and RLQ tender to light palpation Extremities: No Edema Skin: - - Nickel-sized area of erythema to RLQ Neurological: Alert and Oriented x 3 Lines/Tubes/Other Access: Clean, Dry and Intact Peripheral IV Nutrition: Taking PO's Result Diagrams: 09/08/18 06:05 09/08/18 06:05 Assess/Plan/Problems-Billing Assessment: Mr. Doty is a 63yo with PMH of DM2, CVA, CAD, HTN, left foot osteomyelitis, and PVD who presented to the ED with c/o RUQ pain, cough, congestion, and N/V, and was found to have pneumonia, an abdominal wall abscess, and MACHO. - Patient Problems (1) Right lower lobe pneumonia Current Visit: Yes Status: Acute Code(s): J18.1 - LOBAR PNEUMONIA, UNSPECIFIED ORGANISM SNOMED Code(s): 393818279 Comment: - CT shows right lower lobe infiltrate - Negative influzena, strep pneumo and legionella antigens - Continue ceftriaxone, doxy - Will d/c azithromycin as doxy will be used in its place (2) RUQ abdominal pain Current Visit: Yes Status: Acute Code(s): R10.11 - RIGHT UPPER QUADRANT PAIN SNOMED Code(s): 119905853 Comment: - Differential includes gastroparesis or 2/2 nausea and vomiting d/t viral illness - Gastric emptying study today - Has outpatient f/u for chronic diarrhea next week - Continue zofran (3) Abscess of abdominal wall Current Visit: Yes Status: Acute Code(s): L02.211 - CUTANEOUS ABSCESS OF ABDOMINAL WALL SNOMED Code(s): 26338591 Comment: - 2/2 insulin pump - US shows fluid collection concerning for microabscess formation - Start doxy d/t concern for MRSA (will also cover pneumonia) (4) Sepsis Current Visit: Yes Status: Acute Comment: - Source is pneumonia - On admission met criteria for severe sepsis with tachycardia, tachypnea, and elevated lactic - On admission met qSOFA criteria with RR >22 (5) Acute kidney injury Current Visit: No Status: Acute Code(s): N17.9 - ACUTE KIDNEY FAILURE, UNSPECIFIED SNOMED Code(s): 00062964 Comment: - Resolved with IVFs; creatinine down to 1.6 - Baseline creatinine unclear; 1.1 in May, but has been 1.5 since June ; this may represent progression to CKD stage 3 (6) Diabetes mellitus, type 2 Current Visit: Yes Status: Acute Comment: - Glucose moderately well-controlled, <200 - FS AC - Hold glipizide, metformin - Continue insulin pump (7) Peripheral arterial disease Current Visit: Yes Status: Chronic Code(s): I73.9 - PERIPHERAL VASCULAR DISEASE, UNSPECIFIED SNOMED Code(s): 728395509 Comment: - Hx of claudication s/p revascularzation March 2018 - Continue aspirin, pletal, plavix (8) Depression Current Visit: Yes Status: Acute Code(s): F32.9 - MAJOR DEPRESSIVE DISORDER , SINGLE EPISODE, UNSPECIFIED SNOMED Code(s): 60855299 Comment: - Continue lamotragine, wellbutrin, sertraline (9) History of CVA (cerebrovascular accident) Current Visit: Yes Status: Acute Code(s): Z86.73 - PRSNL HX OF TIA (TIA), AND CEREB INFRC W/O RESID DEFICITS SNOMED Code(s): 788009392 Comment: - No residual - Continue plavix (10) DVT prophylaxis Current Visit: Yes Status: Acute Code(s): ITB4907 - SNOMED Code(s): 418768957 Comment: - Heparin SQ (11) Full code status Current Visit: Yes Status: Acute Code(s): Z78.9 - OTHER SPECIFIED HEALTH STATUS SNOMED Code(s): 164749739 Status and Disposition: Observation. Anticipate d/c home when medically stable. Attending: Fortunato Ray
[2018-09-08] MEDS ORDERED: Azithromycin IV(*) 250 MG in NS 0.9% 250 ML* 250 ML IVPB SCH (13:00)
[2018-09-08] MEDS: amLODIPine TAB* 5 MG PO SCH ×2 (13:31→21:44)
[2018-09-08] MEDS: BuPROPion XL* 300 MG TAB.XL PO SCH (13:31)
[2018-09-08] MEDS: Sertraline* 100 MG TAB PO SCH ×2 (13:31→21:43)
[2018-09-08] MEDS: LAMOTRIGINE 200 MG PO SCH (13:31)
[2018-09-08] MEDS: DOXYcycline CAP(*) 100 MG PO SCH ×2 (13:31→21:43)
[2018-09-08] MEDS: Aspirin 81 mg CHEW TAB* 81 MG TAB.CHEW PO SCH (13:31)
[2018-09-08] MEDS: Cilostazol TAB* 100 MG PO SCH ×2 (13:31→21:43)
[2018-09-08] MEDS ORDERED: cefTRIAXone(*) 1 GM in NS 0.9% 50 ML* 50 ML IVPB SCH (15:00)
[2018-09-08] MEDS ORDERED: Dextrose 50% Syringe 50 ML* 25 GM/50 ML SYRINGE IV PUSH PRN (15:21)
[2018-09-08] MEDS: Insulin LISPRO* 1 UNITS UNIT SUBCUT SCH (17:38)
[2018-09-08] MEDS: Clopidogrel TAB* 75 MG PO SCH (21:51)
[2018-09-09] MEDS: Heparin VIAL(*) 5000 UNITS/ML VIAL (FIVE THOUSAND) SUBCUT SCH (05:54)
[2018-09-09 06:48] LABS: ABS Basophils 0 10^3/ul (0-0.2); ABS Eosinophils 0.2 10^3/ul (0-0.6); ABS Lymphocytes 0.5 10^3/ul (1.0-4.8); ABS Monocytes 0.7 10^3/ul (0-0.8); ABS Neutrophils 4.4 10^3/ul (1.5-7.7); ABS Nucleated RBC 0 10^3/ul; Eosinophil % 3.8 %; Hematocrit 32 % (42-52); Lymphocyte % 8.9 %; Mean Corpuscular HGB Conc 35 g/dl (31-36); Mean Corpuscular Hemoglobin 30 pg (27-31); Mean Corpuscular Volume 85 fL (80-94); Nucleated Red Blood Cells % 0; Platelet Count 167 10^3/ul (150-450); Red Blood Count 3.72 10^6/ul (4.00-5.40); Red Cell Distribution Width 14 % (10.5-15); White Blood Count 5.8 10^3/ul (3.5-10.8)
[2018-09-09 07:43] VITALS: BP 146/72
[2018-09-09 08:01] LABS: EGFR Non-African American 42.7 (>60)
[2018-09-09] MEDS: Aspirin 81 mg CHEW TAB* 81 MG TAB.CHEW PO SCH (08:07)
[2018-09-09] MEDS: BuPROPion XL* 300 MG TAB.XL PO SCH (08:07)
[2018-09-09] MEDS: Cilostazol TAB* 100 MG PO SCH (08:07)
[2018-09-09] MEDS: DOXYcycline CAP(*) 100 MG PO SCH (08:07)
[2018-09-09] MEDS: amLODIPine TAB* 5 MG PO SCH (08:07)
[2018-09-09] MEDS: Sertraline* 100 MG TAB PO SCH (08:07)
[2018-09-09] MEDS: LAMOTRIGINE 200 MG PO SCH (08:07)
[2018-09-09] MEDS: Insulin LISPRO* 1 UNITS UNIT SUBCUT SCH (08:08)
[2018-09-09] MEDS ORDERED: Lisinopril TAB* 5 MG PO SCH (09:00)
--- NOTE | 2018-09-09 21:09 | DS ---
CC: Dr. Gabbie Shell; Dr. King; Dr. Farris * DISCHARGE SUMMARY: DATE OF ADMISSION: 09/07/18 DATE OF DISCHARGE: 09/09/18 PRIMARY CARE PROVIDER: Dr. Gabbie Shell. ORTHOPEDIST: Dr. King. BUS PERSON: Dr. Farris. ATTENDING PHYSICIAN: Dr. Ray * (dictated by Alpa Holm NP). PRIMARY DIAGNOSES: 1. Community-acquired pneumonia. 2. Gastroparesis. 3. Sepsis. 4. Abdominal wall abscess. 5. Acute kidney injury. SECONDARY DIAGNOSES: 1. Diabetes mellitus, type 2. 2. Peripheral arterial disease. 3. Depression. STUDIES WHILE IN THE HOSPITAL: 1. Chest x-ray on 09/07/18 reads as no evidence for acute intrathoracic disease. 2. Left foot x-ray on 09/07/18 reads as no radiographic evidence for osteomyelitis. 3. Abdomen and pelvis CT on 09/07/18 reads as mild inflammatory infiltrate/ pneumonia at the right lung base. No pathologic process of the alimentary tract evident. Nonobstructing 3-mm stone upper pole left kidney without gross change. Negative for hydronephrosis. 4. Soft tissue ultrasound done on 09/07/18 reads as corresponding with the site of clinical concern, there is an infiltrative edema and a poorly marginated loculated fluid collection at the depth of the subcutaneous tissue approximating the muscular fascia measuring up to 0.8 x 0.4 x 0.6 cm suspicious for early microabscess formation. 5. Gastric emptying study on 09/08/18 reads as gastroparesis. Gastric emptying half time is equal to 148 minutes. Normal GE T-1/2 is less than 90 minutes. HISTORY OF PRESENT ILLNESS AND HOSPITAL COURSE: Mr. Doty is a 63-year-old male with past medical history of diabetes; PVD; coronary artery disease; recent left great toe osteomyelitis, status post amputation in March with wound complications and MRSA infection, who presented to the emergency room on with complaints of right upper quadrant pain and upper respiratory symptoms. Please see the history and physical by Tiffnaie Hope NP, for complete summary of the events leading up to this hospitalization. In short, the patient has had right upper quadrant pain for approximately 5 days prior to admission. He about a week before admission developed cough, nasal congestion, nausea, and vomiting. He did also report diarrhea, though he does have chronic diarrhea. He had continued nausea in the emergency room. I will note that in regards to the patient's left foot, he follows with Dr. King approximately every 2 weeks and there are currently no concerns regarding the left foot. In the emergency room, the patient was noted to meet sepsis criteria with tachycardic tachypnea and an elevated lactic acid. He also met qSOFA criteria with a respiratory rate of 23. Source of the sepsis was determined on imaging to be pneumonia. He was given appropriate IV hydration and placed on ceftriaxone and azithromycin for community-acquired pneumonia. He was admitted by the Hospitalist service. The patient had an uneventful night after admission on 09/08/18. The patient reported feeling well in the morning. He continued to have some abdominal pain. He did have a gastric emptying study as noted above, which showed gastroparesis. It is likely that this is secondary to his diabetes. His respiratory symptoms were minimal and he did not require any supplemental oxygen or respiratory treatments while here in the hospital. Blood sugars were moderately well controlled in the upper 100s to lower 200s for the most part. He did use his insulin pump for the majority of his stay. As noted on ultrasound, there was concern for a microabscess formation in the abdominal wall. The patient reports that this is a site where he previously had his insulin pump and he thought that he had a needle stuck in his skin for some period of time. On admission, the area was approximately quarter size with significant erythema. He was started on doxycycline for the abscess and was subsequently taken off azithromycin. He was noted to have acute kidney injury in the emergency room, which did resolve with IV fluids and he is now back at his baseline creatinine. He was noted to have an elevated blood pressure while in the hospital with systolics ranging from the 140s to 160s. He has been started on lisinopril which will also be renally protective for his diabetes. As of the day of discharge, the patient reports feeling well. He offers no complaints. He denies any respiratory symptoms. No cough, no shortness of breath at rest or on exertion. He has had a good appetite with no nausea or vomiting and no abdominal pain. I did speak with the patient about his diagnosis of gastroparesis. Ideally, the patient would be started on Reglan as first-line management for gastroparesis, though he is on an SSRI and therefore, cannot be safely started on Reglan because of a drug-drug interaction. He has been given instructions on conservative treatment. He is feeling well and is anxious to return home. Mr. Doty is stable for discharge today. Vital signs are as follows: Temp 97.6, heart rate 96, respiratory rate 16, oxygen saturation 94% on room air, blood pressure 146/72. DISCHARGE MEDICATIONS: New home medications: 1. Amoxicillin 1000 mg p.o. t.i.d. x5 days. 2. Doxycycline 100 mg p.o. b.i.d. x6 days. 3. Lisinopril 5 mg p.o. daily. 4. Ondansetron 4 mg p.o. q.6 hours p.r.n. nausea or vomiting. Continued medications: 1. Amlodipine 5 mg p.o. b.i.d. 2. Aspirin 81 mg p.o. daily. 3. Bupropion XL 300 mg p.o. daily. 4. CBD 1 cap p.o. q.6 hours p.r.n. 5. Pletal 100 mg p.o. b.i.d. 6. Clopidogrel 75 mg p.o. daily. 7. Glipizide 10 mg p.o. b.i.d. 8. Insulin pump per usual dosing. 9. Lamictal 200 mg p.o. daily. 10. Metformin 1000 mg p.o. b.i.d. 11. Sertraline 100 mg p.o. b.i.d. DISCHARGE PLAN: Mr. Doty will be discharged to home. Activity will be as tolerated. Diet will be diabetic, heart healthy. Medications are noted above. The patient has been prescribed amoxicillin for 5 days to complete a total of 7 days of antibiotic therapy for pneumonia. He has been prescribed doxycycline for 6 days to complete a total of 7 days of therapy for abdominal wall abscess. This will also serve to cover his pneumonia. He additionally has been started on lisinopril and ondansetron. He can resume his other usual medications. I will note that the patient has an elevated creatinine and his GFR is borderline for needing renally dosed metformin. This will need to be reassessed by his primary care provider. As noted above, I discussed with the patient his diagnosis of gastroparesis and recommendations for conservative management at this time including small frequent meals, increased fluid intake with meals, decreased fiber and fat intake, and good blood sugar control. He reports that he has a followup appointment with his bed spring maker (he believes his bed spring maker is Dr. Farris, though this is not clear) next week for followup on his diarrhea and I have advised him that he should discuss his diagnosis of gastroparesis with his bed spring maker at that time. He will need to continue to follow up with Dr. King as needed and he should follow up with his primary care provider in 4 to 7 days. He has been instructed to return to the emergency room or nearest hospital for any worsening of symptoms, shortness of breath, lightheadedness, dizziness, chest discomfort, high fevers, chills, night sweats, loss of consciousness, or any other worrisome signs or symptoms. This is a summarized report of a complex medical history and hospital stay. For further details, please see the entire medical record. TIME SPENT: Approximately 45 minutes was spent on this discharge, greater than half of that time spent [id number] with the patient discussing discharge plans and instructions. ALPA HOLM NP [id number]/[facility] #: [id number] LET[facility]
== END 2018-09-09 09:50 | disposition home or self-care (01) ==
LOC: ED 09:27 → MEDTELE 14:55 → UNDODISOB 09-09 11:01
PROVIDERS: ADMIT Internal Medicine; ATTEND Internal Medicine
DX: J18.9 Pneumonia, unspecified organism (principal); K31.84 Gastroparesis; A41.9 Sepsis, unspecified organism; L02.211 Cutaneous abscess of abdominal wall; N17.9 Acute kidney failure, unspecified; E11.9 Type 2 diabetes mellitus without complications; I73.9 Peripheral vascular disease, unspecified; F32.9 Major depressive disorder, single episode, unspecified; I25.10 Atherosclerotic heart disease of native coronary artery without angina pectoris; Z87.891 Personal history of nicotine dependence; Z86.73 Personal history of transient ischemic attack (TIA), and cerebral infarction without residual deficits; M86.8X7 Other osteomyelitis, ankle and foot
CPT/HCPCS: 36415; 71045; 74176; 78264; 80048; 80053; 81003; 81015; 82150; 83605; 83690; 83735; 83880; 84145; 84484; 85025; 85610; 85730; 86140; 87040; 87077; 87086; 87186; 87899; 93005; 96365; 96366; 96372; 96375; 99285; A9270-GY; A9541; G0378; J0456; J0696; J1644; J2405; J2765; J3010

== ENCOUNTER 2018-09-21 10:37 | Observation (INO) | payer OTHER, MEDICARE ==
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
[2018-09-21] MEDS ORDERED: NS 0.9% 1000 ML* 1,000 ML IV ONE (10:47)
[2018-09-21 11:13] LABS: Hematocrit 35 % (42-52); Hemoglobin 11.9 g/dl (14.0-18.0); Mean Corpuscular HGB Conc 34 g/dl (31-36); Mean Corpuscular Hemoglobin 29 pg (27-31); Mean Corpuscular Volume 85 fL (80-94); Mean Platelet Volume 7.5 fL (7.4-10.4); Platelet Count 174 10^3/ul (150-450); Red Blood Count 4.13 10^6/ul (4.00-5.40); Red Cell Distribution Width 15 % (10.5-15); White Blood Count 7.5 10^3/ul (3.5-10.8)
[2018-09-21 11:26] LABS: ABS Basophils 0.1 10^3/ul (0-0.2); ABS Eosinophils 0.1 10^3/ul (0-0.6); ABS Lymphocytes 0.5 10^3/ul (1.0-4.8); ABS Monocytes 0.4 10^3/ul (0-0.8); ABS Neutrophils 6.3 10^3/ul (1.5-7.7); ABS Nucleated RBC 0 10^3/ul; Eosinophil % 1.6 %; Lymphocyte % 6.8 %; Nucleated Red Blood Cells % 0
[2018-09-21 11:39] LABS: Albumin 3.7 g/dL (3.2-5.2); Albumin/Globulin Ratio 1.4 (1-3); BUN/Creatinine Ratio 8.9 (8-20); Calcium 9.5 mg/dL (8.6-10.3); EGFR Non-African American 38.3 (>60); Globulin 2.7 g/dL (2-4); Magnesium 1.7 mg/dL (1.9-2.7); Potassium 4.1 mmol/L (3.5-5.0); Total Bilirubin 0.3 mg/dL (0.2-1.0); Total Protein 6.4 g/dL (6.4-8.9)
[2018-09-21 11:59] LABS: TSH (Thyroid Stimulating Horm) 0.93 mcIU/mL (0.34-5.60)
[2018-09-21] MEDS ORDERED: Magnesium Sulfate 2 GM IV* 2 GM/50 ML BAG IVPB ONE (14:06)
[2018-09-21] MEDS ORDERED: Acetaminophen TAB* 325 MG PO PRN (15:07)
[2018-09-21] MEDS ORDERED: Dextrose 50% Syringe 50 ML* 25 GM/50 ML SYRINGE IV PUSH PRN (15:25)
[2018-09-21] MEDS: Insulin LISPRO* 1 UNITS UNIT SUBCUT SCH (17:11)
[2018-09-21] MEDS: Clopidogrel TAB* 75 MG PO SCH (17:11)
[2018-09-21] MEDS: Atorvastatin* 10 MG TAB PO SCH (17:12)
[2018-09-21 19:19] LABS: Urine Appearance Cloudy; Urine Bacteria Absent (Absent); Urine Bilirubin Negative (Negative); Urine Blood 1+ (Negative); Urine Color Yellow; Urine Glucose 1+(50 mg/dL) (Negative); Urine Ketones Negative (Negative); Urine Nitrite Negative (Negative); Urine Protein 2+(100 mg/dL) (Negative); Urine Red Blood Cell 3+(>10/hpf) (Absent); Urine Specific Gravity 1.015 (1.010-1.030); Urine Urobilinogen Negative (Negative); Urine White Blood Cell Absent (Absent)
[2018-09-21] MEDS: Cilostazol TAB* 100 MG PO SCH (20:46)
[2018-09-21] MEDS: amLODIPine TAB* 5 MG PO SCH (20:46)
[2018-09-21] MEDS: Heparin VIAL(*) 5000 UNITS/ML VIAL (FIVE THOUSAND) SUBCUT SCH (20:52)
[2018-09-21] MEDS: Sertraline* 100 MG TAB PO SCH (20:52)
[2018-09-21] MEDS ORDERED: lamoTRIgine TAB(*) 100 MG PO SCH (21:00)
[2018-09-21] MEDS ORDERED: lamoTRIgine TAB(*) 25 MG PO SCH (21:00)
--- NOTE | 2018-09-21 22:30 | CONS ---
CONSULTATION REPORT: DATE OF CONSULT: 09/21/18 PATIENT OF: Dr. Shell; Carmen Lawrence NP HISTORY OF PRESENT ILLNESS: This is a 63-year-old left-handed man whom I asked to evaluate for an episode from today. He is a known diabetic, who had a blood sugar of 33 and felt lightheaded and tremors, so he took some fruit bars, lay down on the couch between 7 and 8 and went to sleep. His was initially with him, but then went to the grocery store. When he woke up, he had some left facial droop and felt so weak all over. He did not get up off couch even though he had to go to the bathroom, he defecated, he was completely awake and alert when that happened. Ambulance was called. By the time they arrived, he was mostly better other than he had some left leg weaknesses, left facial droop was gone, it is unclear how he knew he had the facial droop, but he said it felt different, his thinking was clear throughout. At this time, he had some slurring of speech, also which has resolved. He notes that his baseline severe intention tremor has improved and he notes that his walking is not back to baseline. He feels a little unsteady now. He has had a past history of stroke and had seen Dr. Warren in [address] Major in 2017 for presumed ischemic episodes. They were thought to be left hemispheric, but he had a right carotid stenosis greater than 80% and is status post endarterectomy. His problems included inability to talk with an aphasia and some right facial droopiness. He has had similar smaller episodes but were not recounted to his neurologist at the time of visits, but were not in the chart that I could find where he was seen for the smaller episodes. When Dr. Major saw him last, he thought he might have had a TIA versus orthostatic hypotension and hyperglycemia. He was continued on his aspirin and Plavix and he had an CT angiogram at that point, which showed less than 50% left carotid stenosis. His MRI scan at that time showed a left periventricular infarct. He also notes that he has been treated with Lamictal. He has told the hospitalist that this was for a mood disorder, to me he denies this and says that he had seen a neurologist through [facility], he says, in [place], but was not sure about that and that the neurologist put him on Lamictal for seizures. There is no clear seizures that he has been known to have other than his intention tremors and these other events that were thought to be ischemic related. He was recently hospitalized a few weeks ago for diarrhea and vomiting. PAST MEDICAL HISTORY: Significant for type 2 diabetes, using insulin pump; recurrent TIA; stroke; history of coronary artery disease; essential tremor; depression; hypertension; mild traumatic brain injury; status post great toe amputation on the left in March of this year; chronic diarrhea; peripheral artery disease, status post intervention; long-term tobacco abuse, quitting in summer. MEDICATIONS: 1. Insulin pump. 2. Metformin 1000 mg b.i.d. 3. Glipizide 10 mg b.i.d. 4. Wellbutrin 300 b.i.d. 5. Norvasc 5 mg b.i.d. 6. Zoloft 100 b.i.d. 7. Lamictal 200 mg that in his last chart is once daily, but apparently he notes that he takes it twice daily. 8. Plavix 75 mg daily. 9. Aspirin 81 mg daily. 10. Pletal 100 mg b.i.d. 11. CBD oil for his tremor, which he thinks helps him significantly. ALLERGIES: He has no known allergies. FAMILY HISTORY: Noncontributory. SOCIAL HISTORY: He smoked 1 pack a day for 50 years and quit in summer. 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 He is a full code. REVIEW OF SYSTEMS: Negative in all 14 spheres other than HPI. PHYSICAL EXAM: Temperature 98.7, pulse 100, respiratory rate is 18, blood pressure 163/80. He is alert and oriented with normal speech and comprehension. His speech is not slurred to me and he feels like it is back to normal. At this point, he has a coarse bilateral intention tremor, which he says is unchanged. Cranial nerves II through XII were intact. Fundi showed sharp discs and no pronator drift. Strength was 5/5. He had a glove stocking vibratory sensory loss that appears . Reflexes were trace. Toes were downgoing. Gait was unsteady and wide based, but there was no clear asymmetry to his gait to my eye this evening. Chest: Clear. Cardiovascular: Regular rate and rhythm. Abdomen is soft. DIAGNOSTIC STUDIES/LAB DATA: His CT scan showed no acute findings and was reviewed. He has had his prior MRI and CTA last done the year ago as above. His labs include normal TSH of 0.93. Creatinine of 1.79, glucose currently 137. Normal CMP. Otherwise, hematocrit 35. CBC was otherwise normal. ASSESSMENT AND PLAN: I discussed with Price and Carmen Baickney that his history is complicated, this began with hypoglycemia, but the blood sugar of 33 , although it could have caused all the symptoms it is not low enough we would have expected it to necessarily cause the full range of symptoms he had this morning since he went to sleep and was not witnessed, it is possible that he had a seizure in his sleep and it was unwitnessed and that he was postictal afterwards, but we do not have any firm evidence for that and it is unclear that he actually has an underlying seizure disorder. The neurologist notes that I do have thought that his past events were ischemic and not seizures and this is what it sounds like to me as well. Also, his tremors are not seizures, but are clearly intention tremors and he had prominent bilateral intention tremors on exam today. Another possibility would be that this was an ischemic event and he is clearly at risk for ischemia. He has multiple cardiovascular risk factors including his diabetes and his history of smoking and he has had vascular problems including carotid stenosis requiring an endarterectomy in the past. He needs imaging studies of his blood vessels as well as his brain tomorrow to evaluate to see if we can document his small stroke and also to see the state of his blood vessels. Since his creatinine is elevated, it would be safest to do an MRA of brain and neck without contrast to start with and depending on what we find, we may need to pursue it further. If that workup is negative, I will just continue him on the aspirin and Plavix, and he will be getting an EEG tomorrow as well to assess him for seizures, but if everything is normal and the neurologist in the past had diagnosed seizures, I would increase his Lamictal slightly for 25. I will be signing his case off to the neurologist coming on service tomorrow. I am also recommending that he have B12 and folic acid levels checked since I think he has an underlying diabetic neuropathy, his glove stocking vibratory sensory loss, decreased reflexes, his gait to me what I am seeing today is most consistent with a neuropathic gait. He notes that this is a new symptom, but I am not sure about this history. If his gait disturbance does not resolve and we do not find any other answers for him, I should see him as an outpatient to discuss further the issues of diabetic neuropathy. Thank you for sharing his case. [id number]/CPS #: [id number] LETY
--- NOTE | 2018-09-22 04:43 | HP ---
HISTORY AND PHYSICAL: DATE OF ADMISSION: 09/21/18 ATTENDING PROVIDER: Carmen Lawrence NP. PRIMARY CARE PROVIDER: Dr. Shell. ATTENDING PHYSICIAN WHILE IN THE HOSPITAL: Dr. Nasima Colmenares * (dictated by Carmen Lawrence NP). CHIEF COMPLAINT: Tremors, slurred speech, confusion. HISTORY OF PRESENT ILLNESS: Mr. Doty is a 63-year-old male with a past medical history significant for diabetes, depression, essential tremors, history of TIA, stroke, history of coronary artery disease, who presented to the emergency room with complaints of stroke like symptoms. The patient states that at approximately 8 o'clock this morning, he became sweaty, clammy, and he was found to have blood sugar of 33. At that time, he ate some fruit bars and his gave him some food. He laid down on the couch. He began to feel better so the left him and went to the grocery store. The reports that when she returned, she found him kneeling on the floor, having severe tremors. He was found to be incontinent of stool and at that time, he had some slurred speech and staring episode. This occurred about 9:30, so she called the ambulance to bring him to the emergency room for further evaluation. The patient denies any recent illnesses. Denies any fever, chills, cough, congestion, or shortness of breath. He does report some nausea and vomiting and diarrhea that is chronic for him, he has had for many years. He denies any gross hematuria, dysuria. He does feel increased weakness on the left side. It was also reported that he felt like he had left facial droop because the left side of his face felt funny and was having difficulty finding his words. Upon evaluation in the emergency room, the patient's speech was at baseline. His confusion had resolved. His blood sugar had improved and on admission was 143. Due to his questionable slurred, tremors, confusion, and possible left facial droop, we were asked to see and evaluate him for admission. PAST MEDICAL HISTORY: Significant for: 1. Type 2 diabetes, uses insulin pump. 2. Recurrent TIA. 3. Stroke. 4. History of coronary artery disease. 5. Essential tremor. 6. Depression. 7. Hypertension. 8. History of traumatic brain injury. 9. Chronic diarrhea. 10. Peripheral artery disease. PAST SURGICAL HISTORY: 1. Appendectomy. 2. History of back surgery. 3. Knee surgery. 4. Left great toe partial amputation. HOME MEDICATIONS: 1. Lamictal 200 mg p.o. b.i.d. 2. Lispro 20 units subdermal daily. He uses V-Go 20 insulin delivery system. 3. Zofran 4 mg p.o. q.8 hours as needed for nausea. 4. Lipitor 5 mg p.o. at 1700. 5. Pletal 100 mg p.o. b.i.d. 6. CBD 1 cap p.o. q.6 hours as needed. 7. Bupropion 300 mg p.o. daily. 8. Aspirin 81 mg p.o. q.a.m. 9. Lisinopril 5 mg p.o. daily. 10. Clopidogrel 75 mg q.p.m. 11. Metformin 1000 mg p.o. b.i.d. 12. Glipizide 10 mg p.o. b.i.d. 13. Amlodipine 5 mg p.o. b.i.d. 14. Sertraline 100 mg p.o. b.i.d. ALLERGIES: No known drug allergies. FAMILY HISTORY: Reviewed and noncontributory. SOCIAL HISTORY: The patient smoked a pack to a pack and half cigarettes daily x50 years. He quit on 04/08/18. Denies any alcohol or illicit drug use. He is retired. Surrogate decision maker in the event he is unable to make his own decisions is his , Karma. He is a full code. REVIEW OF SYSTEMS: There is no documented fever. No anorexia, no chest pain, no edema. Denies any cough, hemoptysis, or shortness of breath. He does report nausea, vomiting, diarrhea times several years that is chronic for him, unchanged from his baseline. No hematuria or dysuria. He does report increased weakness to his left side and increased tremors. No visual complaints. No dysphagia. No arthralgias, myalgias, rashes, lesions, psychosis , or anxiety. PHYSICAL EXAMINATION GENERAL APPEARANCE: Mr. Doty is a 63-year-old male. He is alert and oriented x3. He is sitting on the stretcher in the emergency room. He does not appear to be in any acute distress. He is able to give a complete history. VITAL SIGNS: Blood pressure 162/83, heart rate 98, respirations 22, O2 saturation 97%, temperature was 97.7. HEENT: Head is atraumatic and normocephalic. Eyes: EOMs are intact. Sclerae are anicteric and not pale. Oral mucosa appeared to be moist. NECK: Supple. LUNGS: Clear to auscultation bilaterally. No wheezes, rales, or rhonchi. CARDIAC: S1, S2. Regular rate and rhythm. ABDOMEN: Obese, rounded, soft, nontender. Bowel sounds are present x4. He does have small 1 cm area to the right lower abdomen that is reddened without pain. EXTREMITIES: Pedal pulses are +2 bilaterally. He is able to move all 4 extremities. NEUROLOGIC: He does have distinct tremor, worse on the left than the right with moving extremities. He is able to complete [id number], but does have a significant hand and arm tremor with this test. His tongue is midline. Soft palate rises equally. Smile is equal. Speech is clear. Thought process is intact. SKIN: He does have a small reddened area noted to his right lower abdomen approximately 1 cm that is nontender and is just with mild erythema. DIAGNOSTIC STUDIES AND LABORATORY DATA: WBCs are 7.5, RBCs 4.13, hemoglobin 11.9, hematocrit was 35, platelet count is 174. Chemistry: Sodium 138, potassium 4.1, chloride 102, carbon dioxide was 24, anion gap of 12, BUN was 16 , creatinine 1.79. Glucose was 143. Magnesium 1.7, calcium 9.5. ASTs were 15, ALTs were 12, alkaline phosphatase is 68. Troponin 0.03. TSH was 0.93. Urine color was yellow, cloudy, pH was 5.0, specific gravity 1.015. Urine protein was 2+, urine ketones were negative, blood was 1+. Urine nitrites, bilirubin, urobilinogen, and leukocyte esterase were all negative. Urine wbc's were absent , rbc's were 3+, squamous epithelial cells were present. Bacteria was absent, hyaline casts were present, glucose was 1+. Chest x-ray, no active cardiopulmonary disease. Abdominal x-ray, possibility of gas in the abdomen. No obvious free air. CT of the brain, chronic ischemic white matter changes. No intracranial mass or hemorrhage noted. EKG showed sinus rhythm at a rate of 92. ASSESSMENT AND PLAN: Mr. Doty is a 63-year-old male with past medical history significant for diabetes, insulin dependent; history of recurrent transient ischemic attacks; history of cerebrovascular accident; coronary artery disease; essential tremor; depression; hypertension; history of mild traumatic brain injury; history of chronic diarrhea, who presented to the emergency room with complaints of dysarthria, slurred speech, confusion and weakness. Due to these symptoms, we were asked to see and evaluate the patient for admission for possible transient ischemic attack. He will be admitted under inpatient status for: 1. Altered mental status. I suspect that this could be related to the hypoglycemic event the patient had at home with blood sugar of 33. Upon evaluation, the patient did remove his insulin that delivers him 20 units of lispro insulin daily and he reports he boluses himself with approximately 6 extra units daily of lispro for his diabetes. During his hypoglycemic event, the patient was sweaty, clammy, and felt weak. As his blood sugar improved, his symptoms did resolve. He also reports that he had tremor, slurred speech, and increased confusion, which also resolved with his blood sugar returning to normal. He did complain of fatigue after the drop in his blood sugar. Given his history of transient ischemic attack and cerebrovascular accident, there is also a concern that this could be associated with transient ischemic attack and cerebrovascular accident. We will get an MRI of the brain and then MRA of the head and neck to rule out any pathology. I have also consulted neurology, who will see the patient in consultation. We will continue him on aspirin and Plavix as previously prescribed as his CT of the brain did not show any acute hemorrhage. There is also a possibility that this could be related to seizure activity as there was a report that the patient was having staring spells and increased tremors. We will also get an EEG to rule out any underlying epilepsy. 2. Diabetes. I will place the patient on Accu-Cheks a.c. and h.s. with lispro sliding scale. He will be placed on a consistent carb diet and I will hold his metformin and glipizide at this time and his insulin pump has been discontinued. 3. Depression. He will continue his sertraline as previously prescribed, bupropion. 4. Hypertension. I will continue on amlodipine as previously prescribed. 5. DVT prophylaxis. I will place him on heparin subcu. 6. Code status. He is a full code. 7. Fluids, electrolytes, and nutrition. He can have a consistent carb diet. TIME SPENT: Time spent on this admission was 60 minutes, greater than half that time was spent [id number] with the patient obtaining my history and physical; the other half the time was spent going over my plan of care, implementing my plan of care. CARMEN LAWRENCE, AIRCRAFT CABIN CLEANER [id number]/[facility] #: [id number] LETY
[2018-09-22] MEDS: Heparin VIAL(*) 5000 UNITS/ML VIAL (FIVE THOUSAND) SUBCUT SCH ×2 (05:19→14:25)
[2018-09-22 05:45] LABS: ABS Basophils 0.1 10^3/ul (0-0.2); ABS Eosinophils 0.3 10^3/ul (0-0.6); ABS Lymphocytes 0.5 10^3/ul (1.0-4.8); ABS Monocytes 0.5 10^3/ul (0-0.8); ABS Nucleated RBC 0 10^3/ul; Eosinophil % 4.3 %; Hematocrit 32 % (42-52); Lymphocyte % 8.2 %; Mean Corpuscular HGB Conc 35 g/dl (31-36); Mean Corpuscular Hemoglobin 29 pg (27-31); Mean Corpuscular Volume 84 fL (80-94); Mean Platelet Volume 6.9 fL (7.4-10.4); Nucleated Red Blood Cells % 0.1; Platelet Count 151 10^3/ul (150-450); Red Blood Count 3.77 10^6/ul (4.00-5.40); Red Cell Distribution Width 15 % (10.5-15); White Blood Count 6.4 10^3/ul (3.5-10.8)
[2018-09-22 06:01] LABS: BUN/Creatinine Ratio 8.6 (8-20); Calcium 8.7 mg/dL (8.6-10.3); EGFR Non-African American 46.6 (>60); Potassium 4.2 mmol/L (3.5-5.0)
[2018-09-22 06:41] LABS: Folate 6.52 ng/mL (>3.99)
[2018-09-22] MEDS ORDERED: Aspirin 81 mg CHEW TAB* 81 MG TAB.CHEW PO SCH (09:00)
[2018-09-22] MEDS ORDERED: Lisinopril TAB* 5 MG PO SCH (09:00)
[2018-09-22] MEDS ORDERED: lamoTRIgine TAB(*) 100 MG PO SCH (09:00)
[2018-09-22] MEDS ORDERED: LAMOTRIGINE 200 MG PO SCH (09:00)
[2018-09-22] MEDS ORDERED: BuPROPion XL* 300 MG TAB.XL PO SCH (09:00)
[2018-09-22] MEDS: Cilostazol TAB* 100 MG PO SCH (09:24)
[2018-09-22] MEDS: amLODIPine TAB* 5 MG PO SCH (09:25)
[2018-09-22] MEDS: Sertraline* 100 MG TAB PO SCH (09:25)
[2018-09-22] MEDS: Insulin LISPRO* 1 UNITS UNIT SUBCUT SCH ×3 (10:10→16:21)
--- NOTE | 2018-09-22 11:52 | EEG ---
CORRECTION VIDEO/EEG MONITORING - Monitoring Monitoring Start Date: 09/22/18 EEG Clinical Indication: Tremors, slurred speech and confusion Introduction: INTRODUCTION: The EEG was monitored from 21 scalp electrodes. Nineteen electrodes consisted of the standard parasagittal, temporal and midline leads of the International 10 -20 system. In addition, special electrodes FT9 and FT10 were placed. EEG data were recorded on an [employer] system with simultaneous MPEG-4 digital video recording of patient behavior. EEG recording was in a monopolar montage with all electrodes referenced to FCz. Significant behavioral events were signaled by an event button, or putative electrical seizure events were detected by a computer program. All EEG data were reviewed in their entirety on a monitor with reconstruction of montages and adjustments of sensitivity and filtering. Simultaneous patient behavior was viewed on an adjacent monitor and correlated with the EEG. - Medications Active Medications: Acetaminophen (Tylenol Tab*) 650 mg PO Q4H PRN PRN Reason: FEVER/PAIN Amlodipine Besylate (Norvasc Tab*) 5 mg PO BID [facility] Last Admin: 09/22/18 09:25 Dose: 5 mg Aspirin (Aspirin 81 Mg Chew Tab*) 81 mg PO QAM [facility] Last Admin: 09/22/18 09:25 Dose: 81 mg Atorvastatin Calcium (Lipitor*) 5 mg PO 1700 [facility] Last Admin: 09/21/18 17:12 Dose: 5 mg Bupropion HCl (Bupropion Xl*) 300 mg PO DAILY [facility] Last Admin: 09/22/18 10:10 Dose: 300 mg Cilostazol (Pletal Tab*) 100 mg PO BID [facility] Last Admin: 09/22/18 09:24 Dose: 100 mg Clopidogrel Bisulfate (Plavix Tab*) 75 mg PO QPM [facility] Last Admin: 09/21/18 17:11 Dose: 75 mg Dextrose (D50w Syringe 50 Ml*) 12.5 gm IV PUSH .FOR FS < 60 - SS PRN PRN Reason: FS < 60 Heparin Sodium (Porcine) (Heparin Vial(*)) 5,000 units SUBCUT Q8HR [facility] Last Admin: 09/22/18 05:19 Dose: 5,000 units Insulin Human Lispro (Humalog*) 0 units SUBCUT AC [facility]; Protocol Last Admin: 09/22/18 10:10 Dose: 8 units Lamotrigine (Lamictal Tab(*)) 200 mg PO 0900 [facility] Last Admin: 09/22/18 09:25 Dose: 200 mg Lamotrigine (Lamictal Tab(*)) 200 mg PO BEDTIME [facility] Last Admin: 09/21/18 20:51 Dose: 200 mg Lisinopril (Prinivil Tab*) 5 mg PO DAILY [facility] Last Admin: 09/22/18 09:22 Dose: 5 mg Sertraline HCl (Zoloft*) 100 mg PO BID [facility] Last Admin: 09/22/18 09:25 Dose: 100 mg - Description Background: The waking background showed appropriate organization with clearly defined anterior-posterior voltage and frequency gradients. There was a defined posterior dominant rhythm of 8-9 Hertz, which was symmetrical and showed normal reactivity. Anteriorly, there was the expected pattern of lower voltage and more irregular theta and beta rhythms. Stage II sleep was not reached. Background Slowing: No generalized background slowing is present. Focal Slowing: No focal slowing is present Other Paroxysmal Non-Epileptiform Findings: None. Spontaneous Activity: No epileptiform discharges are present Clinical Events: No clinical events or seizures have been recorded during this study. - Impression Impression: EEG Summary/Classification: This is a normal EEG study. No epileptiform activity was seen and no clinical events or seizures were recorded. EEG Impression/Clinical Correlate: This normal EEG study neither refutes nor supports a diagnosis of epilepsy. Consider a repeat study if clinically indicated.
--- NOTE | 2018-09-22 14:29 | PN ---
Subjective Date of Service: 09/22/18 Length of Stay: 1 Days Neurology is following for the evaluation and management transient facial droop and slurred speech followed by fecal incontinence Interval History: Patient off the floor for diagnostic testing Objective Active Medications: Acetaminophen (Tylenol Tab*) 650 mg PO Q4H PRN PRN Reason: FEVER/PAIN Amlodipine Besylate (Norvasc Tab*) 5 mg PO BID [facility] Last Admin: 09/22/18 09:25 Dose: 5 mg Aspirin (Aspirin 81 Mg Chew Tab*) 81 mg PO QAM [facility] Last Admin: 09/22/18 09:25 Dose: 81 mg Atorvastatin Calcium (Lipitor*) 5 mg PO 1700 [facility] Last Admin: 09/21/18 17:12 Dose: 5 mg Bupropion HCl (Bupropion Xl*) 300 mg PO DAILY [facility] Last Admin: 09/22/18 10:10 Dose: 300 mg Cilostazol (Pletal Tab*) 100 mg PO BID [facility] Last Admin: 09/22/18 09:24 Dose: 100 mg Clopidogrel Bisulfate (Plavix Tab*) 75 mg PO QPM [facility] Last Admin: 09/21/18 17:11 Dose: 75 mg Dextrose (D50w Syringe 50 Ml*) 12.5 gm IV PUSH .FOR FS < 60 - SS PRN PRN Reason: FS < 60 Heparin Sodium (Porcine) (Heparin Vial(*)) 5,000 units SUBCUT Q8HR [facility] Last Admin: 09/22/18 05:19 Dose: 5,000 units Insulin Human Lispro (Humalog*) 0 units SUBCUT AC [facility]; Protocol Last Admin: 09/22/18 13:39 Dose: Not Given Lamotrigine (Lamictal Tab(*)) 200 mg PO 0900 [facility] Last Admin: 09/22/18 09:25 Dose: 200 mg Lamotrigine (Lamictal Tab(*)) 200 mg PO BEDTIME [facility] Last Admin: 09/21/18 20:51 Dose: 200 mg Lisinopril (Prinivil Tab*) 5 mg PO DAILY [facility] Last Admin: 09/22/18 09:22 Dose: 5 mg Sertraline HCl (Zoloft*) 100 mg PO BID [facility] Last Admin: 09/22/18 09:25 Dose: 100 mg Vital Signs 09/21/18 09/21/18 09/21/18 14:47 15:00 15:17 Temperature Pulse Rate 100 101 102 Respiratory 20 22 16 Rate Blood Pressure 176/94 173/87 (mmHg) O2 Sat by Pulse 98 99 98 Oximetry 09/21/18 09/21/18 09/21/18 15:47 16:35 16:36 Temperature 98.1 F 98.7 F Pulse Rate 99 102 100 Respiratory 18 20 18 Rate Blood Pressure 163/80 137/71 163/80 (mmHg) O2 Sat by Pulse 98 97 98 Oximetry 09/21/18 09/21/18 09/21/18 19:55 20:00 23:44 Temperature 97.7 F 97.7 F Pulse Rate 102 104 Respiratory 16 18 20 Rate Blood Pressure 158/89 144/86 (mmHg) O2 Sat by Pulse 95 97 Oximetry 09/22/18 09/22/18 09/22/18 02:55 08:00 08:21 Temperature 98.8 F 98.7 F Pulse Rate 102 93 Respiratory 20 20 20 Rate Blood Pressure 155/83 137/82 (mmHg) O2 Sat by Pulse 93 95 Oximetry Intake and Output Last 24 Hours 09/20/18 09/21/18 09/22/18 09/23/18 06:59 06:59 06:59 06:59 Intake Total 1740 820 Balance 1740 820 Weight 184 lb 12.8 oz Intake: IV Fluids 1050 Oral 690 820 Other: # Bowel Movements 0 # Voids 1 Oxygen Devices in Use Now: None Result Diagrams: 09/22/18 05:35 09/22/18 05:35 Additional Lab and Data: EEG: normal awake and drowsy, no seizures or epileptiform discharges Diagnostic Imaging: MRI Brain IMPRESSION: 1. STABLE WHITE MATTER CHANGES OF THE LEFT POSTERIOR FRONTAL PERIVENTRICULAR WHITE MATTER AND PONTINE WHITE MATTER. 2. NO RESTRICTED DIFFUSION TO SUGGEST ACUTE INFARCT. MRA head IMPRESSION: NO ANEURYSM, VASCULAR MALFORMATION, OCCLUSION, OR STENOSIS OF THE VISUALIZED INTRACRANIAL CIRCULATION. MRA neck IMPRESSION: 1. LIMITED STUDY. 2. NO INTERNAL CAROTID ARTERY STENOSIS BY NASCET CRITERIA. Assessment/Plan A/P Transient episode of facial droop, slurred speech and fecal incontinence. Possibly provoked by hypoglycemia. No evidence of stroke or intracranial stenosis on neuroimaging. EEG normal without epileptiform discharges, Continue ASA and Plavix
[2018-09-22] MEDS: Clopidogrel TAB* 75 MG PO SCH (16:45)
[2018-09-22] MEDS: Atorvastatin* 10 MG TAB PO SCH (16:45)
[2018-09-22 17:40] VITALS: BP 143/49
--- NOTE | 2018-09-22 20:44 | DS ---
CC: Dr. Shell DISCHARGE SUMMARY: DATE OF ADMISSION: 09/21/18 DATE OF DISCHARGE: 09/22/18 HISTORY OF PRESENT ILLNESS/HOSPITAL COURSE: This 63-year-old man felt poorly about 8 p.m. In the mo rning he was sweaty and clammy. His blood sugar was 33 on his home glucometer. His gave him so me fruit bars and a cheese cracker. He felt a little better and lied down on the couch. He said it was okay for his to go to the grocery store. She came back in about an hour and she found him k neeling on the floor with tremors. He was incontinent of stool with slurred speech and had a staring episode. She called the ambulance to bring him to the emergency room. By the time he was evaluated in the emergency room, his speech was back to normal, his confusion had resolved. His blood sugar on admission was 143. There was a report of a possible left facial droop. He was evaluated by Dr. Valdes. It was impossible to say whether or not he had a TIA, seizure, or s imply results of hypoglycemia. He was evaluated with a CT of the brain, brain MRI, head MRA and neck MRA. MRAs were negative. MRI showed stable white matter changes of the left posterior frontal wili ventricular white matter. The patient says he has had a stroke in the past. The patient also questioned why he was on lamotrigine, which he has taken for 2 years. He is not louis re of ever having a seizure. His confirmed this. I suggested they discuss this with Dr. Shell . The tells me that when she found him incontinent of stool, kneeling on the floor and she cleaned him up, she found he had 2 V-Go patches on. He is only supposed to have one on. The patient says h e forgot that he had one on and put on a second one. This would certainly account for his hypoglycem ia. FINAL DIAGNOSES: 1. Hypoglycemia associated with transient neurologic changes. Other etiologies can be considered. 2. Diabetes. 3. Hypertension. DISCHARGE MEDICATIONS: 1. Metformin 1000 mg b.i.d. 2. Glipizide XL 10 mg b.i.d. 3. CBD capsule as needed. 4. Amlodipine 5 mg b.i.d. 5. Aspirin 81 mg daily. 6. Clopidogrel 75 mg h.s. 7. Cilostazol 100 mg b.i.d. 8. Sertraline 100 mg b.i.d. 9. V-Go 20 one daily. 10. Lispro insulin as prescribed. 11. Bupropion XL 300 mg daily. 12. Lisinopril 5 mg daily. 13. Atorvastatin 5 mg at 1700 hours. 14. Ondansetron ODT tablet 4 mg every 8 hours p.r.n. 15. Lamotrigine 200 mg b.i.d. CONDITION ON DISCHARGE: Improved. DISPOSITION ON DISCHARGE: Discharged home. [id number]/[facility] #: [id number]
== END 2018-09-22 19:00 | disposition home or self-care (01) ==
LOC: ED 10:37 → MEDTELE 15:07 → INTOOBSV 15:07 → MEDTELE 16:25
PROVIDERS: ADMIT Hospitalist; ATTEND Internal Medicine
DX: E16.2 Hypoglycemia, unspecified (principal); R29.818 Other symptoms and signs involving the nervous system; E11.9 Type 2 diabetes mellitus without complications; I10 Essential (primary) hypertension; Z79.82 Long term (current) use of aspirin; Z79.899 Other long term (current) drug therapy; Z79.4 Long term (current) use of insulin; Z96.41 Presence of insulin pump (external) (internal); Z86.73 Personal history of transient ischemic attack (TIA), and cerebral infarction without residual deficits; I25.10 Atherosclerotic heart disease of native coronary artery without angina pectoris; R25.1 Tremor, unspecified; F32.9 Major depressive disorder, single episode, unspecified; I73.9 Peripheral vascular disease, unspecified; Z87.891 Personal history of nicotine dependence
CPT/HCPCS: 36415; 70450; 70544; 70547; 70551; 71046; 74019; 80048; 80053; 81003; 81015; 82607; 82746; 83735; 84443; 84484; 85025; 93005; 95819; 96365; 96372; 99284; A9270-GY; G0378; J1644; J3475

== ENCOUNTER 2018-09-29 15:20 | Emergency (ER) | payer OTHER, MEDICARE ==
--- OUTSIDE RECORDS SUMMARY | 2018-09-29 16:13 | XMS REPORT | Continuity of Care Document ---
:1955 External Reference #:[id number] Author Name YvonneZackary li Care Team Providers Name Role Phone Gabbie Shell MD Primary Care Physician Unavailable Payers Type Date Identification Numbers Payment Provider Subscriber Effective: Policy Number: [id number] [employer] Maryam Guardado 2010 PayID: [id number] [address] [place] [address] Effective: 2018 Policy Number: [id number] Medicare Price Guardado PayID: [id number] [address] [place] [address] Expires: 2018 Policy Number: [id number] Medicare Price Guardado PayID: [id number] [address] [place] [address] Expires: 2018 Policy Number: [id number] Medicare Price Guardado PayID: [id number] [address] [place] [address] Expires: 2018 Policy Number: [id number] [employer] Maryam Guevara Deb[employer] Number: [id number] [address] PayID: [id number] [place] [address] Onset: 2015 Policy Number: [id number] Jorden Price Rg Debby Group Number: [id number] [address] PayID: [id number] [place]AD[place] Pardo [address] Advance Directives Description No Information Available Problems [...] Former Cigarette Smoker Unknown Smoking Status Reviewed: 09/12/18 Former Cigarette Smoker ETOH Use Denies alcohol [...] Capsule By 2017 Three Times Daily Metronidazole 00/00/ Hx Tablets 500mg Take 1 Unknown 0000 - Tablet By 2017 Three Times Daily Glucotrol XL 00/ Hx Tablets ER 10mg Unknown 0000 - 24HR 2017 Cefepime HCL 00/00/ Hx Solution 1gm grams Unknown 0000 - Rec every 12 06/30/ 2018 through [facility] Vancomycin HCL 00/00/ Hx Solution 1000mg iv every Unknown 0000 - Rec 24 hours 2018 [facility] Immunizations Description No Information Available Vital Signs Date Vital Result Comment 09/12/2018 11:15am Height 67 inches 5'7" Weight 187.00 lb Heart Rate 86 /min Respiratory Rate 17 /min Body Temperature 96.5 F Pain Level 2 BMI (Body Mass Index) 29.3 kg/m2 08/26/2018 1:41pm Height 67 inches 5'7" Weight [...] H/L Range Note Comp Metabolic Panel 06/23/2018 [facility] Sodium 137 mmol/L N 135-145 [address] [place] [address] [phone] Potassium 4.9 mmol/L N 3.5-5.0 Chloride 107 [...] Egfr 51.8 >60 1 Laboratory test 06/23/2018 [facility] Vancomycin Trough 17.8 g /mL finding [address] [place] [address] [phone] C Reactive Protein 4.23 mg/L N <8.01 Comp Metabolic Panel 06/17/2018 [facility] Sodium 133 mmol/L Low 135-145 [address] [place] [address] [phone] Chloride 100 mmol/L Low 101-111 Co2 Carbon [...] mg/dL High 70-100 3 Laboratory test 06/17/2018 [facility] Vancomycin Trough 21.6 g /mL finding [address] [place] [address] [phone] C Reactive Protein 6.85 mg/L N <8.01 Laboratory test 06/13/2018 [facility] C Difficile PCR SEE RESULT [address] [place] [address] [phone] CBC Auto Diff 06/11/2018 [facility] White Blood 6.9 10^3/uL N 3.5-[address] Count .8 [place] [address] [phone] Red Blood Count 3.88 10^6/uL Low 4.00-5.40 [...] Cells % 0.1 Comp Metabolic Panel 06/11/2018 [facility] Sodium 137 mmol/L N 135-[address] [place] [address] [phone] Potassium 4.4 mmol/L N 3.5-5.0 Chloride 102 [...] >60 Egfr 53.3 >60 5 Laboratory test 06/11/2018 [facility] Vancomycin Trough 24.8 g /mL finding [address] [place] [address] [phone] C Reactive Protein 4.81 mg/L N <8.01 Laboratory test 04/24/2018 [facility] Point of Care 331 mg/dL High 70-100 [address] [place] [address] [phone] Laboratory test 04/24/2018 [facility] Surgical SEE RESULT [address] [place] [address] [phone] Laboratory test 04/24/2018 [facility] Point of Care 234 mg/dL High 70-100 [address] [place] [address] [phone] Laboratory test 04/24/2018 [facility] Point of Care 281 mg/dL High 70-100 [address] [place] [address] [phone] Laboratory test 04/24/2018 [facility] Point of Care 232 mg/dL High 70-100 [address] [place] [address] [phone] Laboratory test 11/14/2015 [facility] Erythrocyte Sed 66 mm/Hr High 0-[address] [place] [address] [phone] Comp Metabolic 11/14/2015 [facility] Sodium 135 mmol/L N 133- [address] [place] [address] [phone] Potassium 5.0 mmol/L N 3.5-5.0 Chloride 101 [...] 87.8 N >60 Egfr 112.9 N >60 11 Laboratory test 11/14/2015 [facility] C Reactive 2.79 mg/L N < 5.00 [address] [place] [address] [phone] CBC Auto Diff 11/14/2015 [facility] White Blood 8.0 N 3.5- 10.[address] Count 10^3/[place] [address] [phone] Red Blood Count 4.22 10^6/uL N 4.0-5.4 [...] Nucleated Red Blood Cells % 0.1 N Comp Metabolic Panel 11/08/2015 [facility] Sodium 135 mmol/L N 133-[address] [place] [address] [phone] Potassium 5.1 mmol/L High 3.5-5.0 Chloride 101 [...] 105.9 N >60 13 Laboratory test 11/08/2015 [facility] Erythrocyte Sed 77 mm/Hr High 0-[address] [place] [address] [phone] CBC Auto Diff 11/08/2015 [facility] White Blood 7.3 N 3.5- 10.[address] Count 10^3/[place] [address] [phone] Red Blood Count 4.45 10^6/uL N 4.0-5.4 [...] Nucleated Red Blood Cells % 0.6 N Laboratory test 11/08/2015 [facility] C Reactive 4.89 mg/L N < 5.00 [address] [place] [address] [phone] Comp Metabolic 10/31/2015 [facility] Sodium 134 mmol/L N 133- [address] [place] [address] [phone] Potassium 4.3 mmol/L N 3.5-5.0 Chloride 100 [...] 102.1 N >60 15 Laboratory test 10/31/2015 [facility] C Reactive 9.73 mg/L High < 5.00 [address] [place] [address] [phone] CBC Auto Diff 10/31/2015 [facility] White Blood 9.1 N 3.5- 10.[address] Count 10^3/[place] [address] [phone] Red Blood Count 4.36 10^6/uL N 4.0-5.4 [...] Cells % 0.1 N Laboratory test 10/31/2015 [facility] Erythrocyte Sed 95 mm/Hr High 0-[address] [place] [address] [phone] CBC Auto Diff 10/24/2015 [facility] White Blood 10.3 N 3.5- 10.[address] Count 10^3/[place] [address] [phone] Red Blood Count 4.23 10^6/uL N 4.0-5.4 [...] % 0 N Comp Metabolic Panel 10/24/2015 [facility] Sodium 136 mmol/L N 133-[address] [place] [address] [phone] Potassium 4.9 mmol/L N 3.5-5.0 Chloride 102 [...] 92.0 N >60 17 Laboratory test 10/24/2015 [facility] C Reactive 15.74 mg/L High < 5.00 [address] [place] [address] [phone] Laboratory test 10/13/2015 [facility] Point of Care 150 mg/dL High 74-106 [address] Gl[place], [place] [phone] Laboratory test 10/13/2015 [facility] Wound SEE RESULT [address] Culture/[place] [address] [phone] Tissue (BX) Culture & Gram St SEE RESULT BELOW 21 MRSA/S. aureus Ssti PCR SEE RESULT BELOW 22 Anaerobic Culture SEE RESULT BELOW 23 Laboratory test 10/13/2015 [facility] Wound Culture/Sensi SEE RESULT [address] [place] [address] [phone] Tissue (BX) Culture & Gram St SEE RESULT BELOW 25 MRSA/S. aureus Ssti PCR SEE RESULT BELOW 26 Anaerobic Culture SEE RESULT BELOW 27 Laboratory test 10/13/2015 [facility] Wound Culture/Sensi SEE RESULT [address] [place] [address] [phone] Tissue (BX) Culture & Gram St SEE RESULT BELOW 29 MRSA/S. aureus Ssti PCR SEE RESULT BELOW 30 Anaerobic Culture SEE RESULT BELOW 31 Laboratory test 10/13/2015 [facility] Wound Culture/Sensi SEE RESULT [address] [place] [address] [phone] Tissue (BX) Culture & Gram St SEE RESULT BELOW 33 MRSA/S. aureus Ssti PCR SEE RESULT BELOW 34 Anaerobic Culture SEE RESULT BELOW 35 Laboratory test 10/13/2015 [facility] Mycobacterial See Comment N [address] [place] [address] [phone] 1 Because ethnic data is not always [...] Result [id number] Called to GONSALO at: 13:25:55 by:[id number] Read back by: GONSALO 4 SEE RESULT BELOW Name: PRICE GUARDADO : [address]: Jamar Pérez MD Acct: [id number] Unit: [id number] AGE: 62 Location: [facility] Re06/13/18 SEX: M Status: REG REF SPEC: [id number] GABO: 06/13/18-999 [facility] DR: Jamar Pérez MD REQ: [id number] RECD: 06/13/18-150 STATUS: COMP _ SOURCE: STOOL SPDESC: ORDERED: C. diff PCR Procedure Result Reported Site Stool Specimen Description Final 06/13/18- 1609 ML Stool Color Brown Stool Form Formed Stool Consistency Hard C. difficile PCR Final 06/13/18- 1609 ML Test not performed * - [facility] . END OF REPORT DEPARTMENT OF PATHOLOGY, [address] [place] [address] Vinayak Yanez M.D. Director [facility] # [id number] 5 Because ethnic data is not always [...] 5 Kidney failure <15 (or dialysis) 6 Mine Analyst: [id number] 7 SEE RESULT BELOW Name: PRICE GUARDADO : [address]: Jose Juan King MD Acct: [id number] Unit: [id number] AGE: 62 Location: [place] Re04/24/18 SEX: M Status: [facility] SPEC: [id number] GABO: 04/24/18- SUBM DR: Jose Juan King MD REQ: [id number] RECD: 04/24/180 STATUS: SOUT _ ORDERED: Decal, [...] margin blue and plantar margin black, and public health representative sections are submitted in cassettes A and B to include bone following decalcification in cassette A. Signed by and Reported on: Abby Ellis MD 04/29/18 1052 END OF REPORT DEPARTMENT OF PATHOLOGY, [address] [place] [address] Vinayak Yanez M.D. Director [facility] # [id number] 8 Mine Analyst: [id number] 9 Mine Analyst: [id number] 10 Mine Analyst: [id number] 11 Because ethnic data is not always [...] (or dialysis) 18 Acute inflammation: >10.00 19 Mine Analyst: [id number] FERNANDO PETTIT 20 SEE RESULT BELOW Name: PRICE GUARDADO : [address]: Jessie Lazar MD Acct: [id number] Unit: [id number] AGE: 60 Location: [facility] Re10/13/15 SEX: M Status: REG [facility] SPEC: [id number] GABO: 10/13/15-1640 [facility] DR: Jessie Lazar MD REQ: [id number] RECD: 10/13/15 STATUS: RES OTHR DR: Gabbie [...] Direct PENDING * ML - MAIN LAB ([facility]) . END OF REPORT * ML=Testing performed at Main Lab DEPARTMENT OF PATHOLOGY, [address] [place] [address] Vinayak Yanez M.D. Director [facility] # [id number] 21 SEE RESULT BELOW Name: DEBBYPRICE : [address]: Jessie Lazar MD Acct: [id number] Unit: [id number] AGE: 60 Location: [place] [address]- Re10/13/15 Dis: 10/19/15 SEX: M Status: DIS IN SPEC: [id number] GABO: 10/13/15-1640 [facility] DR: Jessie Lazar MD REQ: [id number] RECD: 10/13/15 STATUS: RES OTHR DR: Gabbie Shell MD _ SOURCE: WOUND SPDESC:KNEE LEFT ORDERED: Tissue Cult/GS/R, Fungal - Other/R, Acid Fast Stain/U COMMENTS: CLOSTRIDIUM FINDINGS IN ADDITION TO S. AUREUS: Verbal to DR. SHELL by [id number] at 1411 on 10/15/15. Results read back [...] performed at Main Lab DEPARTMENT OF PATHOLOGY, [address] [place] [address] Vinayak Yanez M.D. Director [facility] # [id number] Patient: PRICE GUARDADO [id number] (Continued) Specimen: [id number] Collected: 10/13/15-1639 Received: 10/13/15-1755 (Continued) Procedure Result [...] performed at Main Lab DEPARTMENT OF PATHOLOGY, [address] [place] [address] Vinayak Yanez M.D. Director [facility] # [id number] 22 SEE RESULT BELOW Name: PRICE GUARDADO : [address]: Jessie Lazar MD Acct: [id number] Unit: [id number] AGE: 60 Location: [facility] 338- Re10/13/15 SEX: M Status: ADM IN SPEC: [id number] GABO: 10/13/15-1640 [facility] DR: Jessie Lazar MD REQ: [id number] RECD: 10/13/15 STATUS: RES OTHR DR: Gabbie Shell MD _ SOURCE: WOUND SPDESC:KNEE LEFT ORDERED: Anaerobic Cult/R, MRSA/SA SSTI/R, Culture Stain/R, Fungal - Other /R, Acid Fast Stain/U COMMENTS: Verbal to GEMINI CHAWLA by [id number] at 2020 on 10/13/15. Results read back [...] performed at Main Lab DEPARTMENT OF PATHOLOGY, [address] [place] [address] Vinayak Yanez M.D. Director [facility] # [id number] Patient: PRICE GUARDADO [id number] (Continued) Specimen: [id number] Collected: 10/13/15 Received: 10/13/15 (Continued) Procedure Result Reported Site Acid Fast Stain - Direct Final (continued) 10/14/15809 Due to limited sensitivity of the smear, results should be used as an adjunct in evaluating the patient's status and cultural examination is highly recommended for diagnosis. * ML - MAIN LAB ([facility]) . END OF REPORT * ML=Testing performed at Main Lab DEPARTMENT OF PATHOLOGY, [address] [place] [address] Vinayak Yanez M.D. Director [facility] # [id number] 23 SEE RESULT BELOW Name: PRICE GUARDADO : [address]: Jessie Lazar MD Acct: [id number] Unit: [id number] AGE: 60 Location: [facility] 338- Re10/13/15 Dis: 10/19/15 SEX: M Status: DIS IN SPEC: [id number] GABO: 10/13/15-1640 [facility] DR: Jessie Lazar MD REQ: [id number] RECD: 10/13/15 STATUS: RES OTHR DR: Gabbie Shell MD _ SOURCE: WOUND SPDESC:KNEE LEFT ORDERED: Anaerobic Cult/R, MRSA/SA SSTI/R, Culture Stain/R, Fungal - Other /R, Acid Fast Stain/U COMMENTS: Verbal to GEMINI CHAWLA by [id number] at 2020 on 10/13/15. Results read back accurately. CLOSTRIDIUM FINDINGS IN ADDITION TO S. AUREUS: Verbal to DR. SHELL by [id number] at 1411 on 10/15/15. Results read back [...] performed at Main Lab DEPARTMENT OF PATHOLOGY, [address] [place] [address] Vinayak Yanez M.D. Director [facility] # [id number] Patient: PRICE GUARDADO [id number] (Continued) Specimen: [id number] Collected: 10/13/15 Received: 10/13/15 (Continued) Procedure Result [...] performed at Main Lab DEPARTMENT OF PATHOLOGY, [address] [place] [address] Vinayak Yanez M.D. Director [facility] # [id number] Patient: PRICE GUARDADO [id number] (Continued) Specimen: [id number] Collected: 10/13/15 Received: 10/13/15 (Continued) Procedure Result [...] performed at Main Lab DEPARTMENT OF PATHOLOGY, [address] [place] [address] Vinayak Yanez M.D. Director [facility] # [id number] 24 SEE RESULT BELOW Name: PRICE GUARDADO : [address]: Jessie Lazar MD Acct: [id number] Unit: [id number] AGE: 60 Location: [facility] Re10/13/15 SEX: M Status: REG SDC SPEC: [id number] GABO: 10/13/15-1640 [facility] DR: Jessie Lazar MD REQ: [id number] RECD: 10/13/15 STATUS: RES [facility] DR: Gabbie Shell MD _ SOURCE: [...] Direct PENDING * ML - MAIN LAB ([facility]) . END OF REPORT * ML=Testing performed at Main Lab DEPARTMENT OF PATHOLOGY, [address] [place] [address] Vinayak Yanez M.D. Director [facility] # [id number] 25 SEE RESULT BELOW Name: PRICE GUARDADO : [address]: Jessie Lazar MD Acct: [id number] Unit: [id number] AGE: 60 Location: [facility] 338-01 Re10/13/15 Dis: 10/19/15 SEX: M Status: DIS IN SPEC: [id number] GABO: 10/13/15-1640 [facility] DR: Jessei Lazar MD REQ: [id number] RECD: 10/13/15 STATUS: RES OTHR DR: Gabbie Shell MD _ SOURCE: WOUND SPDESC:KNEE LEFT ORDERED: Tissue Cult/GS/R, Fungal - Other/R, Acid Fast Stain/U COMMENTS: CLOSTRIDIUM FINDINGS IN ADDITION TO S. AUREUS: Verbal to DR. SHELL by [id number] at 1411 on 10/15/15. Results read back [...] performed at Main Lab DEPARTMENT OF PATHOLOGY, [address] [place] [address] Vinayak Yanez M.D. Director [facility] # [id number] Patient: PRICE GUARDADO [id number] (Continued) Specimen: [id number] Collected: 10/13/15-1639 Received: 10/13/15 (Continued) Procedure Result [...] performed at Main Lab DEPARTMENT OF PATHOLOGY, [address] [place] [address] Vinayak Yanez M.D. Director [facility] # [id number] 26 SEE RESULT BELOW Name: PRICE GUARDADO : [address]: Jessie Lazar MD Acct: [id number] Unit: [id number] AGE: 60 Location: [place] [address] Re10/13/15 SEX: M Status: ADM IN SPEC: [id number] GABO: 10/13/15-1640 [facility] DR: Jessie Lazar MD REQ: [id number] RECD: 10/13/15 STATUS: RES OTHR DR: Gabbie Shell MD _ SOURCE: WOUND SPDESC:KNEE LEFT ORDERED: Anaerobic Cult/R, MRSA/SA SSTI/R, Culture Stain/R, Fungal - Other /R, Acid Fast Stain/U COMMENTS: Verbal to GEMINI AMY CHAWLA by [id number] at 2020 on 10/13/15. Results read back [...] performed at Main Lab DEPARTMENT OF PATHOLOGY, [address] [place] [address] Vinayak Yanez M.D. Director [facility] # [id number] Patient: PRICE GUARDADO [id number] (Continued) Specimen: [id number] Collected: 10/13/15 Received: 10/13/15 (Continued) Procedure Result [...] performed at Main Lab DEPARTMENT OF PATHOLOGY, [address] [place] [address] Vinayak Yanez M.D. Director [facility] # [id number] 27 SEE RESULT BELOW Name: PRICE GUARDADO : [address]: Jessie Lazar MD Acct: [id number] Unit: [id number] AGE: 60 Location: [facility] 338-01 Re10/13/15 Dis: 10/19/15 SEX: M Status: DIS IN SPEC: [id number] GABO: 10/13/15-1640 [facility] DR: Jessie Lazar MD REQ: [id number] RECD: 10/13/15581 STATUS: RES OTHR DR: Gabbie Shell MD _ SOURCE: WOUND SPDESC:KNEE LEFT ORDERED: Anaerobic Cult/R, MRSA/SA SSTI/R, Culture Stain/R, Fungal - Other /R, Acid Fast Stain/U COMMENTS: Verbal to GEMINI CHAWLA by [id number] at 2020 on 10/13/15. Results read back accurately. CLOSTRIDIUM FINDINGS IN ADDITION TO S. AUREUS: Verbal to DR. SHELL by [id number] at 1411 on 10/15/15. Results read back [...] performed at Main Lab DEPARTMENT OF PATHOLOGY, [address] [place] [address] Vinayak Yanez M.D. Director [facility] # [id number] Patient: PRICE GUARDADO [id number] (Continued) Specimen: [id number] Collected: 10/13/15-1639 Received: 10/13/15175 (Continued) Procedure Result [...] performed at Main Lab DEPARTMENT OF PATHOLOGY, [address] [place] [address] Vinayak Yanez M.D. Director [facility] # [id number] Patient: PRICE GUARDADO [id number] (Continued) Specimen: [id number] Collected: 10/13/15-1639 Received: 10/13/15175 (Continued) Procedure Result Reported Site Acid Fast Stain - Direct Final (continued) 10/14/15809 AFB Smear Result No Acid Fast Bacillus Present (Negative) Preparation By Direct Smear Due to limited sensitivity of the smear, results should be used as an adjunct in evaluating the patient's status and cultural examination is highly recommended for diagnosis. * ML - MAIN LAB ([facility]) . END OF REPORT * ML=Testing performed at Main Lab DEPARTMENT OF PATHOLOGY, [address] [place] [address] Vinayak Yanez M.D. Director [facility] # [id number] 28 SEE RESULT BELOW Name: PRICE GUARDADO : [address]: Jessie Lazar MD Acct: [id number] Unit: [id number] AGE: 60 Location: [facility] Re10/13/15 SEX: M Status: REG SDC SPEC: [id number] GABO: 10/13/15-1640 [facility] DR: Jessie Lazar MD REQ: [id number] RECD: 10/13/15 STATUS: RES OTHR DR: Gabbie [...] Direct PENDING * ML - MAIN LAB ([facility]) . END OF REPORT * ML=Testing performed at Main Lab DEPARTMENT OF PATHOLOGY, [address] [place] [address] Vinayak Yanez M.D. Director [facility] # [id number] 29 SEE RESULT BELOW Name: PRICE GUARDADO : [address]: Jessie Lazar MD Acct: [id number] Unit: [id number] AGE: 60 Location: [facility] 338- Re10/13/15 Dis: 10/19/15 SEX: M Status: DIS IN SPEC: [id number] GABO: 10/13/15-1640 [facility] DR: Jessie Lazar MD REQ: [id number] RECD: 10/13/15713 STATUS: RES OTHR DR: Gabbie Shell MD _ SOURCE: WOUND SPDESC:KNEE LEFT ORDERED: Tissue Cult/GS/R, Fungal - Other/R, Acid Fast Stain/U COMMENTS: CLOSTRIDIUM FINDINGS IN ADDITION TO S. AUREUS: Verbal to DR. SHELL by [id number] at 1411 on 10/15/15. Results read back [...] performed at Main Lab DEPARTMENT OF PATHOLOGY, [address] [place] [address] Vinayak Yanez M.D. Director [facility] # [id number] Patient: PRICE GUARDADO [id number] (Continued) Specimen: [id number] Collected: 10/13/15 Received: 10/13/15 (Continued) Procedure Result [...] performed at Main Lab DEPARTMENT OF PATHOLOGY, [address] [place] [address] Vinayak Yanez M.D. Director [facility] # [id number] 30 SEE RESULT BELOW Name: PRICE GUARDADO Arcenio : [address]: Jessie Lazar MD Acct: [id number] Unit: [id number] AGE: 60 Location: [place] [address]- Re10/13/15 SEX: M Status: ADM IN SPEC: [id number] GABO: 10/13/15-1640 [facility] DR: Jessie Lazar MD REQ: [id number] RECD: 10/13/15 STATUS: RES OTHR DR: Gabbie Shell MD _ SOURCE: WOUND SPDESC:KNEE LEFT ORDERED: Anaerobic Cult/R, MRSA/SA SSTI/R, Culture Stain/R, Fungal - Other /R, Acid Fast Stain/U COMMENTS: Verbal to GEMINI CHAWLA by [id number] at 2020 on 10/13/15. Results read back [...] performed at Main Lab DEPARTMENT OF PATHOLOGY, [address] [place] [address] Vinayak Yanez M.D. Director [facility] # [id number] Patient: PRICE GUARDADO [id number] (Continued) Specimen: [id number] Collected: 10/13/15-1639 Received: 10/13/15 (Continued) Procedure Result Reported Site Acid Fast Stain - Direct Final (continued) 10/14/15809 Due to limited sensitivity of the smear, results should be used as an adjunct in evaluating the patient's status and cultural examination is highly recommended for diagnosis. * ML - MAIN LAB ([facility]) . END OF REPORT * ML=Testing performed at Main Lab DEPARTMENT OF PATHOLOGY, [address] [place] [address] Vinayak Yanez M.D. Director [facility] # [id number] 31 SEE RESULT BELOW Name: PRICE GUARDADO : [address]: Jessie Lazar MD Acct: [id number] Unit: [id number] AGE: 60 Location: [place] [address] Re10/13/15 Dis: 10/19/15 SEX: M Status: DIS IN SPEC: [id number] GABO: 10/13/15-1640 [facility] DR: Jessie Lazar MD REQ: [id number] RECD: 10/13/15 STATUS: RES OTHR DR: Gabbie Shell MD _ SOURCE: WOUND SPDESC:KNEE LEFT ORDERED: Anaerobic Cult/R, MRSA/SA SSTI/R, Culture Stain/R, Fungal - Other /R, Acid Fast Stain/U COMMENTS: Verbal to GEMINI CHAWLA by [id number] at 2020 on 10/13/15. Results read back accurately. CLOSTRIDIUM FINDINGS IN ADDITION TO S. AUREUS: Verbal to DR. SHELL by [id number] at 1411 on 10/15/15. Results read back [...] performed at Main Lab DEPARTMENT OF PATHOLOGY, [address] [place] [address] Vinayak Yanez M.D. Director [facility] # [id number] Patient: PRICE GUARDADO [id number] (Continued) Specimen: [id number] Collected: 10/13/15-1639 Received: 10/13/15 (Continued) Procedure Result [...] performed at Main Lab DEPARTMENT OF PATHOLOGY, [address] [place] [address] Vinayak Yanez M.D. Director [facility] # [id number] Patient: PRICE GUARDADO [id number] (Continued) Specimen: [id number] Collected: 10/13/15 Received: 10/13/15175 (Continued) Procedure Result Reported Site Acid Fast Stain - Direct Final (continued) 10/14/15809 AFB Smear Result No Acid Fast Bacillus Present (Negative) Preparation By Direct Smear Due to limited sensitivity of the smear, results should be used as an adjunct in evaluating the patient's status and cultural examination is highly recommended for diagnosis. * ML - MAIN LAB ([facility]) . END OF REPORT * ML=Testing performed at Main Lab DEPARTMENT OF PATHOLOGY, [address] [place] [address] Vinayak Yanez M.D. Director [facility] # [id number] 32 SEE RESULT BELOW Name: PRICE GUARDADO : [address]: Jessie Lazar MD Acct: [id number] Unit: [id number] AGE: 60 Location: SDS Re10/13/15 SEX: M Status: REG SDC SPEC: [id number] GABO: 10/13/15-1640 [facility] DR: Jessie Lazar MD REQ: [id number] RECD: 10/13/15415 STATUS: RES OTHR DR: Gabbie Shell MD [...] Direct PENDING * ML - MAIN LAB ([facility]) . END OF REPORT * ML=Testing performed at Main Lab DEPARTMENT OF PATHOLOGY, [address] [place] [address] Vinayak Yanez M.D. Director [facility] # [id number] 33 SEE RESULT BELOW Name: PRICE GUARDADO: [address]: Jessie Lazar MD Acct: [id number] Unit: [id number] AGE: 60 Location: [place] [id number] Re10/13/15 Dis: 10/19/15 SEX: M Status: DIS IN SPEC: [id number] GABO: 10/13/15-1640 [facility] DR: Jessie Lazar MD REQ: [id number] RECD: 10/13/15 STATUS: COMP OTHR DR: Gabbie Shell MD _ SOURCE: WOUND SPDESC:KNEE LEFT ORDERED: Tissue Cult/GS/R, Fungal - Other/R, Acid Fast Stain/U COMMENTS: CLOSTRIDIUM FINDINGS IN ADDITION TO S. AUREUS: Verbal to DR. SHELL by [id number] at 1411 on 10/15/15. Results read back [...] PAGE * ML=Testing performed at [facility] Lab DEPARTMENT OF PATHOLOGY, [address] [place] [address] Vinayak Yanez M.D. Director [facility] # [id number] Patient: PRICE GUARDADO [id number] (Continued) Specimen: [id number] Collected: 10/13/15-1639 Received: 10/13/15-175 (Continued) Procedure Result Reported Site Acid Fast Stain - Direct Final (continued) 10/14/15- 817 Due to limited sensitivity of the smear, results should be used as an adjunct in evaluating the patient's status and cultural examination is highly recommended for diagnosis. * ML - MAIN LAB ([facility]) . END OF REPORT * ML=Testing performed at Main Lab DEPARTMENT OF PATHOLOGY, [address] [place] [address] Vinayak Yanez M.D. Director [facility] # [id number] 34 SEE RESULT BELOW Name: PRICE GUARDADO : [address]: Jessie Lazar MD Acct: [id number] Unit: [id number] AGE: 60 Location: [facility] 338-01 Re10/13/15 SEX: M Status: ADM IN SPEC: [id number] GABO: 10/13/15-1640 [facility] DR: Jessie Lazar MD REQ: [id number] RECD: 10/13/15 STATUS: RES OTHR DR: Gabbie Shell MD _ SOURCE: WOUND SPDESC:KNEE LEFT ORDERED: Anaerobic Cult/R, MRSA/SA SSTI/R, Culture Stain/R, Fungal - Other /R, Acid Fast Stain/U COMMENTS: Verbal to GEMINI CHAWLA by [id number] at 2020 on 10/13/15. Results read back [...] performed at Main Lab DEPARTMENT OF PATHOLOGY, [address] [place] [address] Vinayak Yanez M.D. Director [facility] # [id number] Patient: PRICE GUARDADO [id number] (Continued) Specimen: [id number] Collected: 10/13/15 Received: 10/13/15-175 (Continued) Procedure Result Reported Site Acid Fast Stain - Direct Final (continued) 10/14/15- 0810 Due to limited sensitivity of the smear, results should be used as an adjunct in evaluating the patient's status and cultural examination is highly recommended for diagnosis. * ML - MAIN LAB ([facility]) . END OF REPORT * ML=Testing performed at Main Lab DEPARTMENT OF PATHOLOGY, [address] [place] [address] Vinayak Yanez M.D. Director [facility] # [id number] 35 SEE RESULT BELOW Name: BARI GUARDADOCHERYL Rg : [address]: Jessie Lazar MD Acct: [id number] Unit: [id number] AGE: 60 Location: [facility] 338-01 Re10/13/15 Dis: 10/19/15 SEX: M Status: DIS IN SPEC: [id number] GABO: 10/13/15-[facility] DR: Jessie Lazar MD REQ: [id number] RECD: 10/13/15 STATUS: COMP HR DR: Gabbie Shell MD _ SOURCE: WOUND SPDESC:KNEE LEFT ORDERED: Anaerobic Cult/R, MRSA/SA SSTI/R, Culture Stain/R, Fungal - Other /R, Acid Fast Stain/U COMMENTS: Verbal to GEMINI BHARDWAJTOSIN CHAWLA by [id number] at 2020 on 10/13/15. Results read back accurately. CLOSTRIDIUM FINDINGS IN ADDITION TO S. AUREUS: Verbal to DR. SHELL by [id number] at 1411 on 10/15/15. Results read back [...] performed at Main Lab DEPARTMENT OF PATHOLOGY, [address] [place] [address] Vinayak Yanez M.D. Director [facility] # [id number] Patient: PRICE GUARDADO [id number] (Continued) Specimen: [id number] Collected: 10/13/15 Received: 10/13/15 (Continued) Procedure Result Reported Site Wound/Misc Culture Final (continued) 10/15/15 69 Organism 1 STAPHYLOCOCCUS AUREUS Quantity 3+ 1. [...] performed at Main Lab DEPARTMENT OF PATHOLOGY, [address] [place] [address] Vinayak Yanez M.D. Director [facility] # [id number] Patient: PRICE GUARDADO [id number] (Continued) Specimen: [id number] Collected: 10/13/15-1640 Received: 10/13/151754 (Continued) Procedure Result Reported Site [...] performed at Main Lab DEPARTMENT OF PATHOLOGY, [address] [place] [address] Vinayak Yanez M.D. Director [facility] # [id number] 36 SOURCE: KNEE, KNEE WOUND SWAB MYCOBACTERIAL CULTURE FINAL No growth after 60 days of incubation. Test Performed by: [address] [address] Digital Content Marketing Manager: Cam Isidro II, M.D., Ph.D. Procedures Date Code Description Status 05/29/2018 93603 Incision Bone Cortex Foot Completed 05/29/2018 01841 Layer Closure Of Wounds 2.6CM - 7.5CM Completed Neck,Hands,Feet,Genitalia 05/29/2018 21571 Layer Closure Of Wounds 2.6CM - 7.5CM Completed Neck,Hands,Feet,Genitalia 05/29/2018 49091 Debridement Tissue/Muscle/Bone Completed 05/27/2018 81753 EKG, Interpretation Only Completed 04/24/2018 44804 Amputation,Toe;Interphalangeal Joint Completed 04/24/2018 12506 Amputation,Toe;Interphalangeal Joint Completed 04/24/2018 43303 Amputation,Toe;Interphalangeal Joint Completed 04/24/2018 85370 Amputation,Toe;Interphalangeal Joint Completed 04/24/2018 92649 Amputation,Toe;Interphalangeal Joint Completed 04/18/2018 00150 Revascularization,Endovascular W/Atherectomy, Inc Completed Angioplasty 04/18/2018 32854 Revascularization,Endovascular W/Atherectomy, Inc Completed Angioplasty 04/18/2018 06914 Angio Extremity, Bilateral Completed 04/18/2018 57523 Ultrasound Guidance For Vascular Access Completed 04/18/2018 84188 Moderate Sedation Services; Same Phys Intl 15 Mins; PT >=5 Completed Years 04/18/2018 72667 Moderate Sedation Services; Same Phys Each Additional 15 Completed Mins 12/10/2016 21990 ECHO Transthorasic Realtime 2D W Doppler & Color Flow Hosp Completed 12/09/2016 10458 EKG, Interpretation Only Completed 01/10/2016 66875 Treadmill Interp/Report Only Completed 01/10/2016 87033 Stress Test Supervsn W/Out I/R Completed 10/15/2015 89821 Arthroscopy,Knee For Infection,Lavage & Drainage Completed 10/15/2015 48248 Arthroscopy,Knee For Infection,Lavage & Drainage Completed 10/15/2015 60551 Arthroscopy,Knee For Infection,Lavage & Drainage Completed 10/15/2015 94002 Arthroscopy,Knee For Infection,Lavage & Drainage Completed 10/13/2015 41600 Arthroscopy,Knee,Meniscectomy Medial Or Lateral Completed 10/13/2015 55452 Arthroscopy,Knee,Meniscectomy Medial Or Lateral Completed 10/13/2015 46730 Arthroscopy,Knee For Infection,Lavage & Drainage Completed 05/18/2013 31301 EEG Recording Awake & Asleep Completed 03/13/2013 05990 Color Flow Doppler/Interp & Reprt Completed 03/13/2013 50390 Pulse Wave/Continuous-Interp.RPT Completed 03/13/2013 99235 Echocardiography, Transesophageal, Real Time W/Image 2D Completed W/W/O M-M Encounters Type Date Location Provider Dx Diagnosis Office Visit 07/25/2018 [facility] Richardson Mahan, I70.212 [facility] [place] 4:25p [facility] [place] arteries of extrm w intrmt romelia, left leg Office Visit 07/23/2018 [facility] Richardson Mahan, I70.222 [facility] [place] 12:30p [facility] [place] arteries of extremities w rest pain, left leg Office Visit 06/16/2018 [facility] Madalyn Jordan T87.44 Infection of 1:20p Infectious Gabrielle Pérez amputation stump, Diseases left lower extremity T81.31xA Disruption of external operation (surgical) wound, NEC, init I73.9 Peripheral vascular disease, unspecified Z79.2 correction (current) use of antibiotics R19.7 Diarrhea, unspecified E11.51 Type 2 diabetes w diabetic 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 E11.69 Type 2 diabetes mellitus with other specified complication Office Visit 06/04/2018 1:00p [facility] Madalyn Jordna T87.44 Infection of Infectious Gabrielle Pérez 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 Office Visit 06/03/2018 [facility] T81.31xD Disruption of 2:51p Assoc,trevor Bradley, external Hospitalists DECOMMISSIONING WELL SITE MANAGER operation (surgical) wound, NEC, subs F32.9 Major depressive disorder, single episode, unspecified N17.9 Acute kidney failure, unspecified E11.9 Type 2 diabetes mellitus without complications I73.9 Peripheral vascular disease, unspecified [facility] T[facility].31[facility] Disruption of 2:50p Assstacy,trevor Bradley, external Hospitalists DECOMMISSIONING WELL SITE MANAGER operation (surgical) wound, NEC, subs F32.9 Major depressive disorder, single episode, unspecified N17.9 Acute kidney failure, unspecified E11.9 Type 2 diabetes mellitus without complications I73.9 Peripheral vascular disease, unspecified Office Visit 06/01/2018 [facility] T81.31xD Disruption of 2:50p Assoc,trevor [facility] Kirk, external Hospitalists DECOMMISSIONING WELL SITE MANAGER operation (surgical) wound, NEC, subs F32.9 Major depressive disorder, single episode, unspecified N17.9 Acute kidney failure, unspecified E11.9 Type 2 diabetes mellitus without complications I73.9 Peripheral vascular disease, unspecified Office Visit 05/31/2018 [facility] T81.31xA Disruption of 2:50p Assoc,trevor [facility] Kirk, external Hospitalists DECOMMISSIONING WELL SITE MANAGER operation (surgical) wound, NEC, init F32.9 Major depressive disorder, single episode, unspecified N17.9 Acute kidney failure, unspecified E11.9 Type 2 diabetes mellitus without complications I73.9 Peripheral vascular disease, unspecified Office Visit 05/30/2018 [facility] T81.31xD Disruption of 2:49p Assoc,trevor Hope, DECOMMISSIONING WELL SITE MANAGER external Hospitalists operation (surgical) wound, NEC, subs I73.9 Peripheral vascular disease, unspecified E11.9 Type 2 diabetes mellitus without complications Office Visit 05/29/2018 [facility] T81.31xD Disruption of 2:49p Assoc,trevor Hope, DECOMMISSIONING WELL SITE MANAGER external Hospitalists operation (surgical) wound, NEC, subs N17.9 Acute kidney failure, unspecified I73.9 Peripheral vascular disease, unspecified E11.9 Type 2 diabetes mellitus without complications Office Visit 05/28/2018 2:17p [facility] Jyoti Mcdaniels, L03.116 Cellulitis of [facility] [place] left lower limb C.M.A. T81.31xA Disruption of external operation (surgical) wound, NEC, init Office Visit 05/28/2018 [facility] T81.31xD Disruption of 2:48p Assoc,trevor Hope, DECOMMISSIONING WELL SITE MANAGER external Hospitalists operation (surgical) wound, NEC, subs N17.9 Acute kidney failure, unspecified I73.9 Peripheral vascular disease, unspecified E11.9 Type 2 diabetes mellitus without complications Office Visit 05/28/2018 12:39p [facility] Madalyn Jordan T87.81 Dehiscence of Infectious Gabrielle Pérez amputation stump Diseases T87.44 Infection of amputation stump, left lower extremity 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 E11.69 Type 2 diabetes mellitus with other specified complication M86.172 Other acute osteomyelitis, left ankle and foot [facility] T[facility] Disruption of 2:48p Assoc,trevor Hope, DECOMMISSIONING WELL SITE MANAGER external Hospitalists operation (surgical) wound, NEC, subs 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 ankle and foot Office Visit 04/19/2018 [facility] Jose Juan King, Z47.89 Encounter for other 9:33a Services Of orthopedic C.M.A. aftercare Office Visit 04/19/2018 [facility] Sami Nicholson MD L97.513 Non-prs chronic 11:31a Assoc,trevor ulcer oth prt right Hospitalists foot w necros muscle 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 I73.9 Peripheral vascular disease, unspecified Office Visit 04/18/2018 11:30a [facility] L97.513 Non-prs Assoc,SAIDA Alvarado chronic ulcer Hospitalists oth prt right foot w necros muscle 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 I73.9 Peripheral vascular disease, unspecified F32.9 Major depressive disorder, single episode, unspecified G25.0 Essential tremor Office Visit 04/17/2018 11:30a [facility] Joe L97.513 Non-prs Assoc,trevor Ramírez M.D. chronic ulcer Hospitalists oth prt right foot w necros muscle 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 Office Visit 04/16/2018 1:09p [facility] Steffanie I73.9 Peripheral Assoc,pc Suzie Bradley, vascular disease, Hospitalists DECOMMISSIONING WELL SITE MANAGER unspecified E11.51 Type 2 diabetes w diabetic 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 Office Visit 04/16/2018 9:11a [facility] Bautista I70.213 [facility] [place] [facility] Mahan M.D. arteries of extrm w intrmt romelia, bi legs M87.878 Other osteonecrosis, left toe(s) Office Visit 04/15/2018 12:44p [facility] Jamar Jordan E11.52 Type 2 diabetes Infectious Gabrielle Pérez w diabetic Diseases peripheral angiopathy w gangrene Z86.73 Prsnl hx of TIA (TIA), and cereb infrc w/o resid deficits Office Visit 04/15/2018 11:29a [facility] Michelle Siu, L97.513 Non- prs Assoc,pc DO chronic ulcer Hospitalists oth prt right foot w necros muscle E11.9 Type 2 diabetes mellitus without complications F32.9 Major depressive disorder, single episode, unspecified Office Visit 04/15/2018 2:11p [facility] Jyoti Mcdaniels, M87.078 [facility] [place] aseptic necrosis C.M.A. of left toe(s) L03.032 Cellulitis of left toe Office Visit 12/10/2016 3:56p [facility] Tiffanie R07.2 Precordial pain Assoc,trevor Hope, DECOMMISSIONING WELL SITE MANAGER Hospitalists R55 Syncope and collapse E11.9 Type 2 diabetes mellitus without complications G45.9 Transient cerebral ischemic attack, unspecified Office 12/10/2016 [facility] Valdes, G45.9 Transient Visit 2:49p Clinic cerebral ischemic attack, unspecified Office 12/09/2016 [facility] Sae Major, G45.9 Transient Visit 1:48p Clinic Gabrielle cerebral ischemic attack, unspecified Office 12/09/2016 [facility] Orlin Junior R55 Syncope and Visit 3:55p Assoc,pc Hospitalists Gabrielle LI collapse R07.2 Precordial pain E11.9 Type 2 diabetes mellitus without complications G45.9 Transient cerebral ischemic attack, unspecified Office Visit 01/10/2016 [facility] Sadie Joshi R07.9 Chest pain, 12:51p Assoc,trevor Tatum, DECOMMISSIONING WELL SITE MANAGER unspecified Hospitalists N17.9 Acute kidney failure, unspecified E11.9 Type 2 diabetes mellitus without complications I10 Essential (primary) hypertension Office Visit 01/09/2016 12:50p [facility] Estefanía Lewis, R07.9 Chest pain , Assoc,pc N.P. unspecified Hospitalists E11.9 Type 2 diabetes mellitus without complications N17.9 Acute kidney failure, unspecified I10 Essential (primary) hypertension Office Visit 11/30/2015 [facility] Jamar D. M00.062 Staphylococcal 3:20p For Infectious Gabrielle Pérez arthritis, left Diseases knee [facility] M00.062 Staphylococcal 3:20p For Infectious Mechelle Pérez. arthritis, left Diseases knee B96.7 Clostridium perfringens causing diseases classd elswhr Office Visit 11/03/2015 [facility] Jamar D. 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 M00.062 Staphylococcal 9:02a For Infectious Mechelle Pérez. arthritis, left Diseases knee L02.416 Cutaneous abscess of left lower limb Office Visit 10/19/2015 [facility] Orlando M00.062 Staphylococcal 10:02a Assoc,trevor Mcconnell MD arthritis, left Hospitalists knee B96.7 Clostridium perfringens causing diseases classd elswhr E11.8 Type 2 diabetes mellitus with unspecified complications Office Visit 10/18/2015 [facility] Jamar Julian M00.062 Staphylococcal 8:56a For Infectious Gabrielle Pérez arthritis, left Diseases knee R19.7 Diarrhea, unspecified V99.xxxA Unspecified transport accident, initial encounter B96.7 Clostridium perfringens causing diseases classd elswhr Office Visit 10/18/2015 [facility] Sanchez M00.062 Staphylococcal 10:02a Assoc,trevor Shell M.D. arthritis, left Hospitalists knee E11.8 Type 2 diabetes mellitus with unspecified complications B96.7 Clostridium perfringens causing diseases classd elswhr Office Visit 10/17/2015 [facility] Sanchez M00.062 Staphylococcal 10:01a Asstrevor kumar M.D. 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 arthritis, left Hospitalists knee E11.8 Type 2 diabetes mellitus with unspecified complications Office Visit 10/13/2015 [facility] Tiffanie M00.062 Staphylococcal 9:58a Asstrevor kumar, MARJORIE arthritis, left Hospitalists knee E11.8 Type 2 diabetes mellitus with unspecified complications Office Visit 10/13/2015 7:00a [facility] Services Derek Hudson, M25.562 Pain in left Of [place] MATTHEWS knee M25.462 Effusion, left knee S81.012A Laceration without foreign body, left knee, init encntr B96.89 Ot bacterial agents as the cause of diseases classd elswhr Office Visit 07/29/2013 Oscar Macario 333.1 Tremor Essential & 8:30a Neurologic Gabrielle Meadows Other Forms Services Of [facility] Office Visit 06/19/2013 Oscar Macraio 437.9 Cerebrovascular 11:30a Neurologic Gabrielle Meadows Disease Or Lesion Services Of [facility] Unspec Office Visit 05/12/2013 Oscar Macario 345.40 Local-Related 10:45a Neurologic Gabrielle Meadows Epilepsy W/O Mention Services Of [facility] Of Intractable Epilepsy 438.89 Cerebrovascular Disease Late Effect Other 331.83 Mild Cognitive Impairment So Stated Office Visit 03/13/2013 [facility] Sanchez 435.9 TIA Ischemia 12:53p Services Of Pal Warren M.D. Cerebral Transient Unspec Office Visit 03/13/2013 [facility] Nasima Darrian, 784.51 Dysarthria 2:43p Assoc,pc D.O. Hospitalists 272.2 Hyperlipidemia Mixed 435.9 TIA Ischemia Cerebral Transient Unspec 305.1 Tobacco Use Disorder Office Visit 03/12/2013 [facility] [place] 435.9 TIA Ischemia 12:52p Services Of [facility] Warren M.D. 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
--- OUTSIDE RECORDS SUMMARY | 2018-09-29 16:14 | XMS REPORT ---
:1955 External Reference #:[id number] Author Organization [facility] Address [address] [place] [address] Phone [phone] Care Team Providers Name Role Phone Gabbie Botello M.D. Care Team Information Tax Analyst Unavailable Gabbie Botello M.D. Primary Care Physician Unavailable Payers Type Date Identification Payment Subscriber Numbers Provider Health Maintenance Effective: Policy Number: [facility] [place] [place] 09/[place]/2010 [id number] [facility] Almarazju[facility] francisco Group Number: [id number] [address] PayID: [id number] [place] [address] Medigap Part B Effective: Policy Number: Medicare Justin Guardado 07/31/2018 [id number] PayID: [id number] [address] [place] [address] Problems Date Description Provider Status Onset: 10/28/2014 Essential tremor Cas Salas Active Onset: 10/28/2014 Mixed hyperlipidemia Cas Salas Active Onset: 10/28/2014 Depressive disorder Doroteo Willis M.D. Active Onset: 10/28/2014 Type 2 diabetes mellitus with Gabbie Botello M.D. Active multiple complications Onset: 10/28/2014 Complex partial epileptic seizure Gabbie oBtello M.D. Active Onset: 10/28/2014 History of cerebrovascular Gabbie Botello M.D. Active accident without residual deficits Onset: 09/08/2015 Type II diabetes mellitus Gabbie Botello M.D. Active uncontrolled Onset: 01/17/2016 Tobacco user Gabbie Botello M.D. Active Onset: 04/19/2016 Nausea and vomiting Paco Hurt M.D. 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 Active Onset: 09/11/2018 Essential hypertension Gabbie Botello M.D. Active Onset: 09/11/2018 Diabetic neuropathy Gabbie Botello M.D. Active Onset: 09/11/2018 Gastroparesis syndrome Gabbie Btoello M.D. Active Onset: 05/02/2012 Cellulitis and abscess of upper Yogesh Hutton M.D. Resolved limb Resolved: 10/28/2014 Onset: [...] on a diabetic diet Occupation working for [employer] Occupation Retired Cigarette Use Former Cigarette Smoker ETOH Use Denies alcohol use Smoking Patient is a former smoker Allergies, Adverse Reactions, Alerts Date Description Reaction Status Severity Comments 05/02/2012 NKDA active Medications Medication Date Status Form Strength Qnty SIG Indications Ordering Provider Ondansetron 09/11 Active Tablets 4mg 90tab 1-2 tab R11.10 Dispers s under tongue Caspar, every 8 M.D. hours as needed Lisinopril 09/11 Active Tablets 10mg 30tab 1 by mouth s every day Gabrielle Botello Atorvastatin 09/11 Active Tablets 10mg 45tab 1/2 by mouth I70.213 Gabbie Calcium s every day Gabrielle Botello Loperamide 02/22 Active Capsules 2mg 90cap 2 tabs at R19.7 Gabbie HCL s onset of , diarrhea and M.D. can repeat after each loose stool max 8 tabs daily Lancets Ultra 10/02 Active Misc Thin 30G 300un tests blood Gabbie Thin 30G its glucose Suleman, three times M.D. day - dx: e11.9 - last seen 08/29/17 Glipizide ER 06/19 Active Tablets ER 10mg 30tab 1 tab by E11 24HR s mouth every , day M.D. Freestyle 05/03 Active Strips 180un test 3x Insulinx its daily Caspar, Blood Glucose dx:e11.9 M.D. Test Strips Freestyle 02/05 Active Kit W/Device 1unit monitor Gabbie Insulinx s blood Caspar, Blood Glucose glucose M.D. Monitoring fasting 3x System daily Wellbutrin Active Tablets 300mg 1 po qd Unknown / Humalog Active Unknown / Sertraline Active Tablets 100mg bid Unknown Lamotrigine Active Tablets 200mg 1 by mouth Unknown Dispers once daily Metformin HCL Active Tablets 1000mg take one .65 Unknown / tablet by mouth twice a day Amlodipine Active Tablets 5mg 1 by mouth Unknown Bes / every day Zofran Odt 07/11 Hx Tablets 4mg 30tab 1-2 tab R11.10 Dispers s under tongue , - every 8 M.D. 12/13 hours as needed Metformin HCL 04/16 Hx Tablets 500mg 1 by mouth daily , - M.D. 07/11 Lorazepam 11/27 Hx Tablets 1mg 90tab 1/2-1 tab by F33.0 s mouth three , - times a day M.D. 07/11 as needed Glipizide ER 08/30 Hx Tablets ER 5mg 90tab 1 tab by E11 24HR s mouth every , - day M.D. 04/16 Dicyclomine 07/25 Hx Capsules 10mg 90cap 1 tab every R15.2 Gabbie HCL s 6 hours a , - needed M.D. 04/16 Reglan 05/03 Hx Tablets 10mg 30tab take 1 R11.2 Doroteo J. s tablet by Lazaro, - mouth 3 M.D. 06/19 times daily as needed Lisinopril 12/05 Hx Tablets 20mg 30tab 1 by mouth E11.65 s every day Caspar, - M.D. 06/19 Pravastatin 05/16 Hx Tablets 20mg 90tab Take 1 E78.2 Paco F. Sodium s Tablet By Blu, - Mouth Every M.D. 07/11 Day Maximum Daily Dose Of 1 Per Day Dicyclomine 05/05 Hx Capsules 10mg 90cap 1 tab every R15.2 Gabbie HCL s 6 hours a Caspar, - needed M.D. 01/16 Lisinopril 01/14 Hx Tablets 5mg 30tab 1 by mouth E11.65 s every day Caspar, - M.D. 12/05 Glipizide ER 10/28 Hx Tablets ER 10mg 30tab 1 tab by E11.65 24HR s mouth every , - day M.D. 08/30 Lantus 10/28 Hx Solution 100Unit/M 6unit 25 units in E11.65 Doroteo Chiu [facility] units M.D. 06/19 at night /2015 Lantus 10/11 Hx Solution 100Unit/M 1mont inject 55 Doroteo Chiu Pen-Inject L h [facility] q [facility] - as directed M.D. 10/28 Glipizide XL 04/04 Hx Tablets ER 5mg 30tab Take 1 Doroteo Elijah 24HR s Tablet By Lazaro, - Mouth One M.D. 01/08 Time Daily Pravastatin 07/21 Hx Tablets 10mg 30tab 1 by mouth 272.2 Gabbie Sodium s every day Caspar, - M.D. 05/16 Bactrim DS 11/04 Hx Tablets 800-160mg 20tab 1 po bid x 682.3 s 10 days january Rm, - fill w/ Afnp-C 11/18 generic Glipizide ER 11/04 Hx Tablets ER 5mg 30tab Take One 250.00 24HR s Tablet By Rm, - Mouth Once Afnp-C 10/28 Amoxicillin/C 05/02 Hx Tablets 875-125mg 20tab 1 bid w/ Yogesh farley s food. Midura, Potassium - M.D. 09/02 Keflex 05/07 Hx Capsules 500mg 20cap 1 po bid Doroteo Nava /2010 s Lazaro, - M.D. 05/02 BD Pen Needle 04/09 Hx 100un use twice a Doroteo Coates /2010 its day with Lazaro, 31GX5/16"_8mm - lantus pen M.D. 06/19 dx 250. Vicodin 03/02 Hx Tablets 5-500mg 30tab 1 po q4hrs Doroteo Nava /2010 s prn Lazaro, - M.D. 05/02 Handicapped 02/21 Hx needs Doroteo Nava Parking Pass handicapped Lazaro, - sticker for M.D. 01/11 3 mths due to back pain [place] 01/12 Hx use day Doroteo Nava Pen Lazaro - M.D. 09/02 Lantus 01/12 Hx Sopn 100Unit/M 15uni inject 55 Doroteo Chiu /2010 L ts units under Lazaro, - the skin M.D. 10/11 evening as directed Ativan 04/06 Hx Tablets 0.5mg 90tab 1 po tid Doroteo Nava /2009 s Lazaro, - M.D. 01/12 Elete 01/26 Hx 1BLT elete Doroteo Nava /2009 glucometer Lazaro, - sticks M.D. 01/16 Lantus 01/26 Hx Solution 100Unit/M 1vial 30units Doroteo Nava /2009 L daily for Lazaro, - adventis M.D. 09/02 santifi pen /2011 Lantus 01/25 Hx use 10 Doroteo Nava Optipen [facility] - night M.D. 02/21 Lantus Pen 01/25 Hx Misc 31GX5/16 100un syringes and Doroteo Nava Jeremiah /2009 its needles Lazaro, - M.D. 06/19 Pravachol 05/06 Hx Tabs 40mg 30tab Take One Doroteo Nava /2008 s Tablet By Lazaro, - Mouth AT M.D. 09/02 Bedtime Lexapro 04/25 Hx Tablets 10mg 30tab 1 po qd Doroteo Nava /Mandi Tinajero M.D. 06/20 Penvk 03/18 Hx 500 20uni use bid x Doroteo Nava ts 10 days Mandi Willis M.D. 04/25 Vitamin B 02/04 Hx Capsules po qd [facility] 02/21 Pending Sale To [facility] Aspirin 02/[address] 81mg 1 po qd [facility] 05/05 Pending Sale To [facility] Metformin HCL 02/04 Hx Tablets 1000mg 60tab take 1 E11.65 Doroteo Nava s tablet by Mandi Willis M.D. 04/16 times daily /2016 Chantix Hx 1unit as directed Doroteo Nava Starter / Mandi Erwin M.D. 02/25 Lisinopril Hx Tablets 2.5mg 1 po qd Unknown /0000 - 01/25 Lexapro Hx Tablets 10mg 30tab 1 po qd Unknown /0000 s - 01/12 Zoloft Hx Tablets 200mg 90tab 1 po qd Unknown /0000 s - 01/16 Lamictal 00 Hx Chewtabs 2mg Unknown /0000 - 07/21 Lamictal 0000 Hx Tablets 200mg 1 po bid Unknown /0000 - 07/11 Imodium A-D Hx Tablets 2mg take 1 Unknown /0000 tablet by - mouth after 01/16 loose bowel movement then 1 tab after each additional episode as needed (mdd=4 tabs) Docusate 00/00 Hx Capsules 100mg 1 by mouth Unknown Sodium /0000 twice a day - as needed 07/11 constipation Plavix 00/00 Hx Tablets 75mg 1 by mouth Unknown /0000 every day - 07/11 Nicotine 0000 Hx Patches 14mg/24HR apply new Unknown Transdermal /0000 24HR patch daily System - 07/11 Vancomycin 00/00 Hx Solution Unknown /0000 - 07/11 Cephalexin 00/00 Hx Suspension Unknown /0000 Rec - 07/11 Vital Signs Date Vital Result Comment 09/11/2018 BP Systolic 164 mmHg BP Diastolic 80 mmHg Heart Rate 72 /min Body Temperature 98.1 F Respiratory Rate 16 /min Height 66 inches 5'6" Weight 186.00 lb BMI (Body Mass Index) 30.0 kg/m2 07/11/2018 BP Systolic 112 mmHg BP Diastolic [...] Result H/L Range Note Laboratory test finding 09/07/2018 Lactic Acid 1.6 mmol/L 0.5-2.0 1 Laboratory test finding 09/07/2018 B-Type Natriuretic 77 pg/mL <=100 Peptide BNP Comp Metabolic Panel 09/07/2018 Sodium 136 mmol/L 135-145 Potassium 4.2 mmol/L 3.5-5.0 Chloride 101 mmol/L 101-111 Co2 Carbon Dioxide 26 mmol/L 22-32 Anion Gap 9 mmol/L 2-11 Glucose 137 mg/dL High 70-100 Blood Urea Nitrogen 19 mg/dL 6-24 Creatinine 2.09 mg/dL High 0.67-1.17 BUN/Creatinine Ratio 9.1 8-20 Calcium 10.1 mg/dL 8.6-10.3 Total Protein 7.3 g/dL 6.4-8.9 Albumin 4.0 g/dL 3.2-5.2 Globulin 3.3 g/dL 2-4 Albumin/Globulin Ratio 1.2 1-3 Total Bilirubin 0.40 mg/dL 0.2-1.0 Alkaline Phosphatase 74 U/L 34-104 Alt 11 U/L 7-52 Ast 14 U/L 13-39 Egfr Non- 32.0 >60 Egfr 38.8 >60 2 Laboratory test finding 09/07/2018 Magnesium 1.9 mg/dL 1.9-2.7 Amylase 50 U/L 29-103 Lipase 26 U/L 11.0-82.0 C Reactive Protein 46.81 mg/L High <8.01 Troponin I 0.03 ng/mL <0.04 3 CBC Auto Diff 09/07/2018 White Blood Count 9.4 10^3/uL 3.5-10.8 Red Blood Count 4.15 10^6/uL 4.00-5.40 Hemoglobin 11.8 g/dL Low 14.0-18.0 Hematocrit 35 % Low 42-52 Mean Corpuscular Volume 85 fL 80-94 Mean Corpuscular Hemoglobin 28 pg 27-31 Mean Corpuscular HGB Conc 33 g/dL 31-36 Red Cell Distribution Width 15 % 10.5-15 Platelet Count 195 10^3/uL 150-450 Mean Platelet Volume 7.3 fL Low 7.4-10.4 Abs Neutrophils 8.0 10^3/uL High 1.5-7.7 Abs Lymphocytes 0.5 10^3/uL Low 1.0-4.8 Abs Monocytes 0.6 10^3/uL 0-0.8 Abs Eosinophils 0.2 10^3/uL 0-0.6 Abs Basophils 0.1 10^3/uL 0-0.2 Abs Nucleated RBC 0 10^3/uL Granulocyte % 85.1 % Lymphocyte % 5.2 % Monocyte % 6.7 % Eosinophil % 2.2 % Basophil % 0.8 % Nucleated Red Blood Cells % 0 Inr/Protime 09/07/2018 Inr 0.90 0.77-1.02 Laboratory test finding 09/07/2018 Partial Thrombo Time 33.7 seconds 26.0 -36.3 PTT Lactic Acid 4.2 mmol/L High 0.5-2.0 4 Urinalysis Profile 09/07/2018 Urine Color Yellow Urine Appearance Clear Urine Specific [place] 1.017 1.010-1.030 Urine pH 5.0 5-9 Urine Urobilinogen Negative Negative Urine Ketones Negative Negative Urine Protein 3+(>=500 mg/dL) Negative Urine Leukocytes Negative Negative Urine Blood 1+ Negative Urine Nitrite Negative Negative Urine Bilirubin Negative Negative Urine Glucose 1+(50 mg/dL) Negative Urine White Blood Cell Trace(0-5/hpf) Absent Urine Red Blood Cell Trace(0-2/hpf) Absent Urine Bacteria Absent Absent Urine Squamous Epithelial Cell Present Absent Urine Hyaline Casts Present Absent Laboratory test finding 09/07/2018 Procalcitonin 0.1 ng/mL <0.6 5 Urine Culture And 09/07/2018 Urine Culture SEE RESULT BELOW 6 Sensitivities Laboratory test finding 09/07/2018 Blood Culture SEE RESULT BELOW 7 Laboratory test finding 09/01/2018 PSA 0.7 ng/mL 0.0-4.0 Lipid Profile 09/01/2018 Cholesterol 186 mg/dL 120-200 Triglycerides 118 mg/dL 30-200 HDL Cholesterol 81 mg/dL High 30-70 LDL (Calculated) 81 CALC 0-129 VLDL Cholesterol 24 mg/dL 0-50 HDL Risk Factor 2.3 CALC 0.0-4.4 CBC Electronic Fma 09/01/2018 WBC 7.6 x10^3/UL 4.0-10.0 RBC 4.17 x10^6/UL 3.93-6.00 HGB 12.1 g/dL 12.0-17.0 HCT 35 % 35-50 MCV 84.9 fL 80.0-95.0 MCH 29.0 pg 25.6-32.2 MCHC 34.2 g/dL 32.2-36.0 RDW-CV 13.7 % 11.6-14.4 PLT 187 x10^3/UL 163-400 MPV 9.2 fL Low 9.4-12.4 Igor# 5.93 x10^3/UL 1.56-6.13 Lymph# 0.50 x10^3/UL Low 1.18-3.74 [place]# 0.80 x10^3/UL 0.24-0.82 Eos # 0.2 x10^3/UL 0.0-0.5 Baso # 0.04 x10^3/UL 0.01-0.08 Igor% 78.6 % High 34.0-70.0 Lymph % 6.6 % Low 20.0-52.0 [place]% 10.6 % 5.0-12.0 Eos% 3.0 % 0.7-7.0 Baso% 0.5 % 0.1-1.2 Comprehensive Metabolic Prof 09/01/2018 Sodium 147 mEq/L 134-149 Potassium 4.6 mEq/L 3.6-5.5 Chloride 107 mEq/L 94-112 Carbon Dioxide 27 mEq/L 21-32 Glucose 120 mg/dL High 70-105 BUN 13 mg/dL 6-26 Creatinine 1.5 mg/dL High 0.6-1.4 BUN/Creat Ratio 8.7 CALC 8.0-36.0 Calcium 8.9 mg/dL 8.6-10.2 Total Protein 6.4 g/dL 6.4-8.3 Albumin 3.9 g/dL 3.8-5.5 Globulin 2.5 g/dL 2.0-4.8 A/G Ratio 1.6 CALC 0.6-2.3 Alk. Phosphatase 73 U/L 22-95 Alt (SGPT) 12 U/L 7-35 Ast (Sgot) 13 U/L 5-34 Total Bilirubin 0.4 mg/dL 0.2-1.3 GFR Non- 50 ml/min/1.73m^ Low >=60 GFR 60 ml/min/1.73m^ >=60 CBC Auto Diff 07/25/2018 White Blood Count 7.3 10^3/uL 3.5-10.8 Red Blood Count 3.99 10^6/uL Low 4.00-5.40 Hemoglobin 11.9 g/dL Low 14.0-18.0 Hematocrit 33 % Low 42-52 Mean Corpuscular Volume 84 fL 80-94 Mean Corpuscular Hemoglobin 30 pg 27-31 Mean Corpuscular HGB Conc 36 g/dL 31-36 Red Cell Distribution Width 14 % 10.5-15 Platelet Count 158 10^3/uL 150-450 Mean Platelet Volume 7.1 um3 Low 7.4-10.4 Abs Neutrophils 5.5 10^3/uL 1.5-7.7 Abs Lymphocytes 0.8 10^3/uL Low 1.0-4.8 Abs Monocytes 0.7 10^3/uL 0-0.8 Abs Eosinophils 0.3 10^3/uL 0-0.6 Abs Basophils 0.1 10^3/uL 0-0.2 Abs Nucleated RBC 0 10^3/uL Granulocyte % 75.1 % 38-83 Lymphocyte % 10.8 % Low 25-47 Monocyte % 9.7 % High 0-7 Eosinophil % 3.6 % 0-6 Basophil % 0.8 % 0-2 Nucleated Red Blood Cells % 0.1 Laboratory test finding 07/25/2018 Lactic Acid 2.1 mmol/L High 0.5-2.0 8 Comp Metabolic Panel 07/25/2018 Sodium 137 mmol/L 135-145 Potassium 4.3 mmol/L 3.5-5.0 Chloride 103 mmol/L 101-111 Co2 Carbon Dioxide 25 mmol/L 22-32 Anion Gap 9 mmol/L 2-11 Glucose 166 mg/dL High 70-100 Blood Urea Nitrogen 19 mg/dL 6-24 Creatinine 1.55 mg/dL High 0.67-1.17 BUN/Creatinine Ratio 12.3 8-20 Calcium 9.2 mg/dL 8.6-10.3 Total Protein 6.4 g/dL 6.4-8.9 Albumin 3.6 g/dL 3.2-5.2 Globulin 2.8 g/dL 2-4 Albumin/Globulin Ratio 1.3 1-3 Total Bilirubin 0.30 mg/dL 0.2-1.0 Alkaline Phosphatase 60 U/L 34-104 Alt 11 U/L 7-52 Ast 12 U/L Low 13-39 Egfr Non- 45.4 >60 Egfr 54.9 >60 9 Inr/Protime 07/25/2018 Inr 0.89 0.77-1.02 Laboratory test finding 07/25/2018 Partial Thrombo Time 32.4 seconds 26.0 -36.3 PTT CBC Auto Diff 07/01/2018 White Blood Count [...] Egfr Non- 34.8 >60 Egfr 42.1 >60 10 Laboratory test finding 07/01/2018 Acetaminophen < 15 g/mL 11 Alcohol < 10 mg/dL <10 Salicylate < 2.50 mg/dL <30 TSH (Thyroid Stim Horm) 1.49 mcIU/mL 0.34-5.60 Laboratory test finding 06/12/2018 Hemoglobin A1c (Fma) 9.2 % High 4.1- 5.7 Laboratory test finding 04/24/2018 Point of Care Glucose 331 mg/dL High 70 -100 12 Laboratory test finding 04/24/2018 Point of Care Glucose 281 mg/dL High 70 -100 13 Laboratory test finding 04/24/2018 Point of Care Glucose 232 mg/dL High 70 -100 14 Laboratory test finding 04/24/2018 Point of Care Glucose 234 mg/dL High 70 -100 15 Laboratory test finding 12/23/2017 Hemoglobin A1c (Fma) [...] 6.3 x10^3/UL 1.5-7.2 Lymph# 1.4 x10^3/UL 0.7-4.9 [place]# 0.4 x10^3/UL 0.1-0.9 Gran % 76.6 % High 42.2-75.2 Lymph % 18.1 % Low 20.5-51.1 [place]% 5.3 % 1.7-9.3 Laboratory test finding 08/29/2017 TSH 1.98 mIU/L 0.50-6.00 Free T4 1.25 ng/dL 0.75-1.54 Laboratory test 08/29/2017 Hemoglobin A1c 8.7 % High 4.1-5.7 finding (Fma) Laboratory test 06/19/2017 Hemoglobin A1c 7.8 % High 4.1-5.7 finding (Fma) Laboratory test 04/16/2017 Hemoglobin A1c 7.4 % High 4.1-5.7 finding (Fma) Laboratory test 03/08/2017 Hemoglobin A1c 8.5 % High Less than 6.0 16 finding (Glyco HGB) Laboratory test 03/08/2017 Stool For Blood SEE RESULT 17 finding BELOW Laboratory test 03/08/2017 Clotest SEE RESULT 18 finding BELOW Laboratory test 03/08/2017 Point of Care 154 mg/dL High 74-106 19 finding Glucose Comp Metabolic 03/08/2017 Sodium 134 [...] Egfr Non- 64.9 >60 Egfr 83.4 >60 20 Inr/Protime 03/08/2017 Inr 0.88 Low 0.89-1.11 CBC [...] finding 03/08/2017 Surgical Interface SEE RESULT BELOW 21 Order Laboratory test finding 11/30/2016 C Difficile PCR SEE RESULT BELOW 22 Comprehensive Metabolic 11/27/2016 Sodium 132 mEq/L Low 134-149 Prof Potassium 6.3 mEq/L High 3.6-5.5 23 Chloride 100 mEq/L 94-112 Carbon Dioxide 25 mEq/L 21-32 Glucose 469 mg/dL High 70-105 24 BUN 18 mg/dL 6-26 Creatinine 1.1 mg/dL [...] 6.1 x10^3/UL 1.5-7.2 Lymph# 0.8 x10^3/UL 0.7-4.9 [place]# 0.3 x10^3/UL 0.1-0.9 Gran % 84.0 % High 42.2-75.2 Lymph % 11.5 % Low 20.5-51.1 [place]% 4.5 % 1.7-9.3 Laboratory test finding 11/27/2016 Hemoglobin A1c (Fma) 8.8 % High 4.1- 5.7 Laboratory test finding 07/25/2016 Hemoglobin A1c (Fma) 7.9 % High 4.1- 5.7 Laboratory test finding 05/31/2016 Point of Care Glucose 231 mg/dL High 74 -106 25 Laboratory test finding 05/31/2016 Inr/Protime 0.99 0.89-1.11 [...] finding 05/31/2016 Troponin I 0.01 ng/mL <0.03 26 CKMB 05/31/2016 CKMB ng/mL 3.1 ng/mL 0.6-6.3 [...] Egfr Non- 61.3 >60 Egfr 78.9 >60 27 Potassium 5.2 mmol/L High 3.5-5.0 Anion Gap 7 mmol/L 2-11 Ast 17 U/L 13-39 Laboratory test finding 05/31/2016 Lipase 28 U/L 11.0-82.0 Creatine Kinase(CK) 74 U/L 10-223 C Reactive Protein 3.78 mg/L < 5.00 28 CBC Electronic (a) 05/03/2016 WBC 9.5 3.6-9.6 [...] Lyme IgG/IgM Ab <0.91 ISR 0.00- 0.90 29, 30 Lyme Disease Ab, Quant, IgM <0.80 index 0.00-0.79 29, 31 Comprehensive Metabolic Prof 05/03/2016 Sodium 140 mEq/L [...] finding 04/19/2016 Lactic Acid 0.9 mmol/L 0.5-2.0 32 Laboratory test finding 04/14/2016 Hemoglobin A1c (Fma) [...] mEq/L 134-149 Potassium 6.3 mEq/L High 3.6-5.5 33 Chloride 100 mEq/L 94-112 Carbon Dioxide 27 mEq/L 21-32 Glucose 571 mg/dL High 70-105 34 BUN 13 mg/dL 6-26 Creatinine 0.9 mg/dL [...] Quantitative < 200 ng/mL Less Than 230 35 Lactic Acid 2.6 mmol/L High 0.5-2.0 36 B Type Natriuretic Peptide 34 pg/mL 37 Comp Metabolic Panel 01/09/2016 Sodium 133 mmol/L [...] Egfr Non- 55.9 >60 Egfr 71.9 >60 38 Laboratory test finding 01/09/2016 Magnesium 1.9 mg/dL 1.9-2.7 Lipase 34 U/L 11.0-82.0 Creatine Kinase 116 U/L 10-223 C Reactive Protein 6.20 mg/L High < 5.00 39 Troponin I 0.01 ng/mL <0.03 40 CKMB 01/09/2016 CKMB ng/mL 4.5 ng/mL 0.6-6.3 [...] Egfr Non- 79.4 >60 Egfr 102.1 >60 41 Laboratory test finding 10/31/2015 C Reactive Protein 9.73 mg/L High < 5.00 42 CBC Auto Diff 10/31/2015 White Blood Count [...] finding 10/13/2015 Troponin I 0.02 ng/mL <0.03 43 Hemoglobin A1c (Glyco HGB) 7.4 % High Less than 6.0 44 Blood Culture SEE RESULT BELOW 45 Type & Screen 10/13/2015 Patient Blood Type A Positive Antibody Screen NEGATIVE Inr/Protime 10/13/2015 Inr 1.01 0.89-1.11 Laboratory test 10/13/2015 Point of Care 150 mg/dL High 74-106 46 finding Glucose Laboratory test 10/13/2015 Wound SEE RESULT BELOW 47 finding Culture/Sensi Tissue (BX) Culture & Gram St SEE RESULT BELOW 48 MRSA/S. aureus Ssti PCR SEE RESULT BELOW 49 Anaerobic Culture SEE RESULT BELOW 50 Mycobacterial Culture See Comment 51 Laboratory test finding 10/13/2015 Point of Care 281 mg/dL High 74-106 52 Glucose Laboratory test finding 10/13/2015 Troponin I 0.01 ng/mL <0.03 53 Body Fluid Cell Count 10/13/2015 Body Fluid Source Synovial Fluid 54 Body Fluid Appearance Bloody 54 Body Fluid Color (SEE NOTE) 54, 55 Body Fluid Volume 1.5 mL 54 Body Fluid WBC 00619 54 Body Fluid RBC 10682 54 Body Fluid Neutrophils 94 54 Body Fluid Other Cells 6 54 Body Fluid Total Cells Counted 100 54 Body Fluid Comment (SEE NOTE) 54, 56 Fluid Reviewed By MD (SEE NOTE) 54, 57 Laboratory test finding 10/13/2015 Body Fluid Culture SEE RESULT BELOW 58 (Bottles) Body Fluid Cell Count 10/13/2015 Body Fluid Source Synovial Fluid Body Fluid Appearance Cloudy Body Fluid Color [place] Body Fluid Volume 10 mL Body Fluid WBC TNP Body Fluid RBC TNP Body Fluid Neutrophils 93 Body Fluid Band 1 Body Fluid Lymph 5 Body Fluid [place] 1 Body Fluid Total Cells Counted 100 Fluid Reviewed By MD (SEE NOTE) 59 Body Fluid Total Protein 10/13/2015 Total Protein, BF 1.4 g/dL 60 Fluid Source SYNOVIAL FLUID 61 Body Fluid Glucose 10/13/2015 Glucose, BF 323 mg/dL 62 Fluid Source SYNOVIAL 63 Comp Metabolic Panel 10/13/2015 Sodium 134 mmol/L [...] Egfr Non- 70.8 >60 Egfr 91.0 >60 64 Laboratory test finding 10/13/2015 Erythrocyte Sed Rate 86 mm/Hr High 0- 20 Wound Culture/Sensi SEE RESULT BELOW 65 CBC Auto Diff 10/13/2015 White Blood Count [...] Reactive Protein 16.59 mg/L High < 5.00 66 Laboratory test finding 09/08/2015 Hemoglobin A1c 8.4 % High 4.1-5.7 (Fma/CMC,CX) Comprehensive Metabolic 05/11/2015 Sodium 138 mEq/L 134-149 Prof Potassium 5.1 mEq/L 3.6-5.5 Chloride 104 mEq/L 94-112 Carbon Dioxide 27 mEq/L 21-32 Glucose 352 mg/dL High 70-105 67 BUN 13 mg/dL 6-26 Creatinine 0.9 mg/dL [...] 6.7 x10^3/UL 1.5-7.2 Lymph# 0.9 x10^3/UL 0.7-4.9 [place]# 0.4 x10^3/UL 0.1-0.9 Gran % 82.3 % High 42.2-75.2 Lymph % 11.9 % Low 20.5-51.1 [place]% 5.8 % 1.7-9.3 Laboratory test finding 05/11/2015 [...] ssa +3 Urobil 0.2 Nitrite - Leukocytes (a/CMC/[facility]) - Hyaline - /Lpf Granular - /Lpf WBC ([facility]) 4-6 RBC 0-1 Mucus mod amt /Lpf Epith - /Lpf Bacteria trace /Hpf Amorphous - /Lpf Crystals, Fluid (a/CMC/CTX) - Laboratory test 01/11/2015 Microalb, Random >300.0 mg/L mg/L High 0.5-37 finding (a/CMC/CTX) CBC Electronic ([facility]) 01/11/2015 WBC 7.6 3.6-9.6 RBC 5.10 [...] mEq/L 21-32 Glucose 155 mg/dL High 70-105 68 BUN 19 mg/dL 6-26 Creatinine 0.8 mg/dL [...] 30-70 LDL (Calculated) 176 CALC High 0-129 69 VLDL Cholesterol 55 mg/dL High 0-50 HDL Risk Factor 6.5 CALC High 0.0-4.4 Laboratory test finding 01/11/2015 LDL, Direct 170 mg/dL High 0-130 Comprehensive Metabolic Prof 10/05/2014 Sodium 135 mEq/L 134-149 Potassium 5.0 mEq/L 3.6-5.5 Chloride 95 mEq/L 94-112 Carbon Dioxide 28 mEq/L 21-32 Glucose 361 mg/dL High 70-105 70 BUN 16 mg/dL 6-26 Creatinine 0.8 mg/dL [...] x10^3/UL High 1.5-7.2 Lymph# 1.1 x10^3/UL 0.7-4.9 [place]# 0.3 x10^3/UL 0.1-0.9 Gran % 82.0 % High 42.2-75.2 Lymph % 13.5 % Low 20.5-51.1 [place]% 4.5 % 1.7-9.3 Laboratory test finding 10/05/2014 Hemoglobin A1c ([facility] [place],CX) 12.4 % High 4.1-5.7 Sed Rate ([facility] [place]/[facility]) 38 mm Laboratory test finding 07/21/2013 Hemoglobin A1c 9.7% % High 4.1-5.7 ([facility] [place],CX) Comprehensive Metabolic 06/16/2013 Albumin 4.4 g/dL 3.8-5.5 Prof Alk. Phos. 64 U/L 22-95 Alt (SGPT) 20 U/L 10-40 Ast (Sgot) 17 U/L 5-34 BUN 12 mg/dL 6-26 Calcium 9.5 mg/dL 8.6-10.2 Chloride 105 mEq/L 94-112 Creatinine 0.9 mg/dL 0.6-1.4 Carbon Dioxide 27 mEq/L 21-32 Glucose 118 mg/dL High 70-105 71 Sodium 135 mEq/L 134-149 Total Bilirubin 0.4 [...] (Direct) 185 mg/dL High 0-130 CBC Electronic ([facility]) 06/16/2013 WBC 8.4 3.6-9.6 RBC 5.19 [...] Color Yellow Urine Appearance Clear Urine Specific [place] (SEE NOTE) 1.010-1.030 72 Urine Esterase Negative Negative Urine Nitrate Negative [...] Egfr Non- 115.4 >60 Egfr 148.4 >60 73 Laboratory test finding 03/12/2013 Creatine Kinase 67 U/L 0-200 Troponin I 0.04 ng/mL 0-0.06 74 Alcohol < 10 mg/dL Less Than 10 75 B Type Natriuretic Peptide 27.0 pg/mL 0-100 Laboratory test finding 03/10/2013 Hemoglobin A1c 8.9 % High 4.1-5.7 ([facility],CX) Laboratory test finding 12/02/2012 Glucose, Serum 192 mg/dL High 70-105 ([facility]/CTX) Hemoglobin A1c ([facility],CX) 9.2 % High 4.1-5.7 Laboratory test 11/18/2012 Glucose, Serum 96 mg/dL 70-105 finding ([facility]/CTX) Surgical Pathology 11/11/2012 S RUN DATE: 76 11/12/ <SEE NOTE> Laboratory test 11/04/2012 Glucose, Serum 397 mg/dL High 70-105 finding (a/CMC/CTX) Laboratory test 10/02/2012 Glucose, Serum 236 mg/dL High 70-105 finding ([facility] [place]/CTX) Comprehensive 09/02/2012 Albumin 4.6 g/dL 3.8-5.5 Metabolic Prof Alk. Phos. 73 U/L 22-95 Alt (SGPT) 15 U/L 10-40 Ast (Sgot) 14 U/L 5-34 BUN 12 mg/dL 6-26 Calcium 9.1 mg/dL 8.6-10.2 Chloride 99 mEq/L 94-112 Creatinine 0.8 mg/dL 0.6-1.4 Carbon Dioxide 26 mEq/L 21-32 Glucose 429 mg/dL High 70-105 77 Sodium 134 mEq/L 134-149 Total Bilirubin 0.5 mg/dL 0.2-1.3 Total Protein 7.6 g/dL 6.3-8.1 Potassium 5.0 mEq/L 3.6-5.5 Globulin 3.0 g/dL 2.0-4.8 A/G Ratio 1.5 Calc 0.6-2.2 BUN/Creat Ratio 13.9 Calc 8.0-36.0 Laboratory test finding 09/02/2012 Hemoglobin A1c 14.0 % High 4.1-5.7 ([facility]) Basic Metabolic Profile 05/02/2012 BUN 13 mg/dL 6-26 Calcium 8.6 mg/dL 8.6-10.2 Chloride 91 mEq/L Low 94-112 78 Creatinine 0.9 mg/dL 0.6-1.4 Carbon Dioxide 25 mEq/L 21-32 Glucose 450 mg/dL High 70-105 79 Sodium 132 mEq/L Low 134-149 80 Potassium 4.3 mEq/L 3.6-5.5 BUN/Creat Ratio 15.7 Calc 8.0-36.0 Laboratory test finding 05/02/2012 Hemoglobin A1c ([facility],CX) 12.5 % High 4.1-5.7 Laboratory test finding 05/07/2011 Hemoglobin A1c ([facility]) 9.6 % High 4.1-5.7 Laboratory test finding 01/12/2011 Hemoglobin A1c ([facility]) 10.8 % High 4.1-5.7 CBC Electronic ([facility]) 01/12/2011 WBC 8.4 3.6-9.6 RBC 5.56 3.90-5.70 [...] 22-32 Anion Gap 14.0 mmol/L High 2-11 81 Glucose 183 mg/dL High 70-100 82 BUN 4 mg/dL Low 6-24 Creatinine 0.70 mg/dL 0.50-1.40 One Over Creatinine 1.40 BUN/Creatinine Ratio 5.7 Low 8-20 Calcium 9.8 mg/dL 8.1-9.9 Total Protein 8.0 GM/DL 6.2-8.1 Albumin 4.2 GM/DL 3.6-5.4 Globulin 3.8 GM/DL 2-4 Albumin/Globulin Ratio 1.1 1-3 Bilirubin Total 1.1 mg/dL 0.4-1.5 83 Alkaline Phosphatase 48 U/L 39-117 Alt (SGPT) 53 U/L 17-63 Ast (Sgot) 74 U/L High 12-42 eGFR Non- 124.0 > 60 eGFR 150.0 > 60 84 CBC With Electronic Diff 06/07/2010 White Blood [...] Eosinophils 0.2 0-0.6 Abs Basophils 0 0-0.2 85 Laboratory test finding 06/07/2010 Alcohol < 10.0 mg/dL None Detected 86 TSH 1.67 MIU/ML 0.34-5.60 Laboratory test 01/25/2010 Hemoglobin A1c 7.3 % High 4.1-5.7 finding (a/[facility],CX) Laboratory test 02/04/2009 Hemoglobin A1c 7.8 % High 4.1-5.7 finding ([facility],CX) Laboratory test 02/04/2009 TSH 1.79 mIU/L 0.50-6.00 87 finding Complete Blood Count 02/04/2009 WBC 5.2 x10^3/uL 3.6-9.6 87 Gran# 3.5 x10^3/uL 1.5-7.2 87 Gran% 67.5 % 42.2-75.2 87 HCT 49 % 36-50 87 HGB 17.4 g/dL High 12.1-17.2 87 Lymph# 1.3 x10^3/uL 0.7-4.9 87 Lymph% 25.0 % 20.5-51.1 87 MCH 33.2 pg 27.6-33.3 87 MCV 94.2 fL 82.2-97.4 87 MCHC 35.3 g/dL 33.0-35.5 87 Mo# 0.4 x10^3/uL 0.1-0.9 87 Mo% 7.5 % 1.7-9.3 87 MPV 7.8 fL 7.4-10.4 87 PLT 132 x10^3/uL Low 150-400 87, 88 RBC 5.22 x10^6/uL 3.90-5.70 87 RDW 11.7 % 11.6-13.7 87 Lipid Profile 02/04/2009 Cholesterol 227 mg/dL High 120-200 87 HDL 59 mg/dL 30-70 87 Triglycerides 241 mg/dL High 30-200 87 HDL Risk Factor 3.9 CALC Low 4.2-7.0 87 LDL (Calculated) 120 CALC 0-129 87 VLDL (Calculated) 48 mg/dL 0-50 87 Comprehensive Metabolic Prof 02/04/2009 Albumin 4.2 g/dL 3.8-5.5 87 Alk. Phos. 55 U/L 22-95 87 Alt (SGPT) 55 U/L High 10-40 87 Ast (Sgot) 46 U/L High 5-34 87 BUN 10 mg/dL 6-26 87 Calcium 9.7 mg/dL 8.6-10.2 87 Chloride 100 mEq/L 94-112 87 Creatinine 0.8 mg/dL 0.6-1.4 87 Carbon Dioxide 32 mEq/L 21-32 87 Glucose 283 mg/dL High 70-105 87, 89 Sodium 137 mEq/L 134-149 87 Total Bilirubin 0.6 mg/dL 0.2-1.3 87 Total Protein 7.1 g/dL 6.3-8.1 87 Potassium 5.3 mEq/L 3.6-5.5 87 Globulin 3.0 g/dL 2.0-4.8 87 A/G Ratio 1.4 Calc 0.6-2.2 87 BUN/Creat Ratio 12.7 Calc 8.0-36.0 87 1 [place] Severe Sepsis and Septic Shock Management Bundle Measure requires all lactic acids initially measuring >2.0 mmol/L be repeated. 2 Because ethnic data is not always [...] 5 Kidney failure <15 (or dialysis) 3 Troponin-I testing on Plasma Separator Tubes (PST) has a known false positive rate of 0.20-0.40%. All positive troponins reflex immediate secondary confirmatory testing. 4 Critical Result LACT:4.2 Called to [id number] at: 10:34:17 by:[id number] Read back by:[id number] [facility] Severe Sepsis and Septic Shock Management Bundle Measure requires all lactic acids initially measuring >2.0 mmol/L be repeated. 5 Interpretive information available on [employer] Lab Test Catalog at [email or web address] 6 SEE RESULT BELOW Name: PRICE GUARDADO : [address]: Fortunato Ray MD Acct: [id number] Unit: [id number] AGE: 63 Location: [place] [address] Re09/07/18 SEX: M Status: ADM Baudilio SPEC: [id number] GABO: 09/07/[address]: Kavon Perez MD REQ: [id number] RECD: 09/07/18 STATUS: DOLORES CARLOS DR: Gabbie Botello MD _ SOURCE: URINE [facility]: ORDERED: Urine Culture Procedure Result Reported Site Urine Culture Final 09/09/18- 0748 ML Organism 1 SERRATIA MARCESCENS [place] Count 10-25,000 (Moderate) CFU/ML 1. SERRATIA MARCESCENS M.I.C. RX --------- ------ Cefazolin >=64 R Cefepime <=1 S Ceftriaxone <=1 S Ciprofloxacin <=0.25 S Gentamicin <=1 S Levofloxacin 0.25 S Meropenem <=0.25 S Nitrofurantoin 256 R Tetracycline >=16 R Trimethoprim/Sulfamethoxazole <=20 S Amoxicillin/Clavulanic Acid >=32 R Aztreonam <=1 S Contact the Microbiology Department for any additional antibiotic reporting. * ML - Main Lab . END OF REPORT DEPARTMENT OF PATHOLOGY, [address] [place] [address] Vinayak Yanez M.D. Director [facility] # [id number] 7 SEE RESULT BELOW Name: PRICE GUARDADO Arcenio : [address]: Fortunato Ray MD Acct: [id number] Unit: [id number] AGE: 63 Location: [place] [address] Re09/07/18 Dis: 09/09/18 SEX: M Status: DIS Baudilio SPEC: [id number] GABO: 09/07/18-[address] [facility] [address]: Kavon Perez MD REQ: [id number] RECD: 09/07/18-1011 STATUS: RES OTHR DR: Gabbie Botello MD _ SOURCE: BLOOD,VENO SPDESC: ORDERED: Blood Cult Procedure Result Reported Site Aerobic Culture Bottle Preliminary 09/10/18- 1014 ML No Growth Day 3 Anaerobic Culture Bottle Preliminary 09/10/18- 1012 ML No Growth Day 3 * ML - Main Lab . END OF REPORT DEPARTMENT OF PATHOLOGY, [address] [place] [address] Vinayak Yanez M.D. Director [facility] # [id number] 8 Critical Result LACT:2.1 Called to [id number] at: 10:24:13 by:[id number] Read back by:[id number] [facility] Severe Sepsis and Septic Shock Management Bundle Measure requires all lactic acids initially measuring >2.0 mmol/L be repeated. 9 Because ethnic data is not always readily [...] 15-29 5 Kidney failure <15 (or dialysis) 10 Because ethnic data is not always [...] 5 Kidney failure <15 (or dialysis) 11 Therapeutic concentration: <50 ug/mL Toxic concentration: >120 ug/mL 12 Paper Tube Cutter: [id number] 13 Paper Tube Cutter: [id number] 14 Paper Tube Cutter: [id number] 15 Paper Tube Cutter: [id number] 16 Therapeutic target for the treatment of diabetes Mellitus patients is <7% HBA1C, and in selective patients <6.0%.Please refer to [employer] Diabetic care guidelines for further information. 17 SEE RESULT BELOW Name: PRICE GUARDADO : [address]: Raul Farris MD Acct: [id number] Unit: [id number] AGE: 61 Location: ENDO Re03/08/17 SEX: M Status: REG REF SPEC: [id number] GABO: 03/08/17-[address] [facility] [address]: Raul Farris MD REQ: [id number] RECD: 03/08/17 STATUS: DOLORES CARLOS DR: Gabbie Botello MD _ SOURCE: STOOL SPDESC: ORDERED: Occult Bl, Diag Procedure Result Reported Site Stool Occult Blood (1) Final 03/08/17- 1249 ML Stool Occult Blood Negative Collection Date (1) 03/08/17 * ML - MAIN LAB ([facility]) . END OF REPORT * ML=Testing performed at Main Lab DEPARTMENT OF PATHOLOGY, [address] [place] [address] Vinayak Yanez M.D. Director [facility] # [id number] 18 SEE RESULT BELOW Name: DEBBYPRICE Arcenio : [address]: Raul Farris MD Acct: [id number] Unit: [id number] AGE: 61 Location: ENDO Re03/08/17 SEX: M Status: REG REF SPEC: [id number] GABO: 03/08/17-[address] [facility] [address]: Raul Farris MD REQ: [id number] RECD: 03/08/176 STATUS: DOLORES CARLOS DR: Gabbie Botello MD _ SOURCE: GAS ANTRUM SPDESC: ORDERED: Clotest Procedure Result Reported Site Clotest Final 03/09/17748 ML Clotest Negative * ML - [facility] ([facility]) . END OF REPORT * ML=Testing performed at Main Lab DEPARTMENT OF PATHOLOGY, [address] [place] [address] Vinayak Yanez M.D. Director [facility] # [id number] 19 Paper Tube Cutter: [id number] 20 Because ethnic data is not always readily [...] 15-29 5 Kidney failure <15 (or dialysis) 21 SEE RESULT BELOW Name: PRICE GUARDADO : [address]: Raul Farris MD Acct: [id number] Unit: [id number] AGE: 61 Location: ENDO Re03/08/17 SEX: M Status: DEP REF SPEC: [id number] GABO: 03/08/17-[address] [facility] [address]: Raul Farris MD REQ: [id number] RECD: 03/08/17 STATUS: DARIANA CARLOS DR: Gabbie Botello MD [...] performed at Main Lab DEPARTMENT OF PATHOLOGY, [address] [place] [address] Vinayak Yanez M.D. Director [facility] # [id number] RUN DATE: 03/11/17 [facility] LAB LIVE PAGE 2 Patient: PRICE GUARDADO [id number] (Continued) GROSS DESCRIPTION (Continued) GROSS DESCRIPTION (Continued) [...] Signed (signature on file) Vinayak Yanez MD 1401 END OF REPORT * ML=Testing performed at Main Lab DEPARTMENT OF PATHOLOGY, [address] [place] [address] Vinayak Yanez M.D. Director [facility] # [id number] 22 SEE RESULT BELOW Name: DEBBYPRICE : [address]: Gabbie Botello MD Acct: [id number] Unit: [id number] AGE: 61 Location: [facility] Re11/30/16 SEX: M Status: REG REF SPEC: [id number] GABO: 11/30/[address] [facility] [address]: Gabbie Botello MD REQ: [id number] RECD: 11/30/16-1024 STATUS: DOLORES CARLOS DR: Rosalva Tinoco [facility] _ SOURCE: STOOL SPDESC: ORDERED: Johann nicholson PCR/S, Stool Culture/R, O P: Ofelia/Lina/R [...] performed at Main Lab DEPARTMENT OF PATHOLOGY, [address] [place] [address] Vinayak Yanez M.D. Director [facility] # [id number] Patient: PRICE GUARDADO [id number] (Continued) Specimen: [id number] Collected: 11/30/16 Received: 11/30/16 (Continued) Procedure Result [...] is requested. Contact the Microbiology Department at [phone]. TEST LIMITATIONS: As with all diagnostic procedures, [...] not recommended. * ML - MAIN LAB ([facility]) . END OF REPORT * ML=Testing performed at Main Lab DEPARTMENT OF PATHOLOGY, [address] [place] [address] Vinayak Yanez M.D. Director [facility] # [id number] 23 RESULTS VERIFIED BY REPEAT ANALYSIS 24 RESULTS VERIFIED BY REPEAT ANALYSIS 25 Paper Tube Cutter: [id number] TENZIN GOMEZ 26 Reference Range and Interpretation: TnI (ng/mL) Interpretation Less Than 0.03 ng/mL Not supportive of diagnosis of [place] 0.03 - 0.50 ng/mL Indeterminate: suggest serial studies if clinically indicated. Greater than 0.5 ng/mL Consistent with diagnosis of [place] 27 Because ethnic data is not always [...] (or dialysis) 28 Acute inflammation: >10.00 29 1 SST 30 Negative <0.91 Equivocal 0.91 - 1.09 Positive >1.09 31 Negative <0.80 Equivocal 0.80 - 1.19 Positive >1.19 IgM levels may peak at 3-6 weeks post infection, then gradually decline. 32 [facility] Severe Sepsis and Septic Shock Management Bundle Measure requires all lactic acids initially measuring >2.0 mmol/L be repeated. 33 RESULTS VERIFIED BY REPEAT ANALYSIS 34 RESULTS VERIFIED BY REPEAT ANALYSIS 35 Please note: The following may produce a false positive D Dimer test: - Rheumatoid factor greater than 60 IU/ml - Plasma hemoglobin greater than 0.05 gm/dl - Bilirubin greater than 50 mg/dl - Lipids greater than 1000 mg/dl - FDP greater than 20 ug/ml 36 Critical Result LACT:2.6 Called to [id number] at: 17:51:37 by:[id number] Read back by:[id number] [place] Severe Sepsis and Septic Shock Management Bundle Measure requires all lactic acids initially measuring >2.0mmol/L be repeated. 37 >100 to <200 pg/mL: likely compensated congestive heart failure (CHF) 200 to 400 pg/mL: likely moderate CHF >400 pg/mL: likely moderate to severe CHF 38 Because ethnic data is not always readily [...] 15-29 5 Kidney failure <15 (or dialysis) 39 Acute inflammation: >10.00 40 Reference Range and Interpretation: TnI (ng/mL) Interpretation Less Than 0.03 ng/mL Not supportive of diagnosis of [place] 0.03 - 0.50 ng/mL Indeterminate: suggest serial studies if clinically indicated. Greater than 0.5 ng/mL Consistent with diagnosis of [place] 41 Because ethnic data is not always readily [...] 15-29 5 Kidney failure <15 (or dialysis) 42 Acute inflammation: >10.00 43 Reference Range and Interpretation: TnI (ng/mL) Interpretation Less Than 0.03 ng/mL Not supportive of diagnosis of [place] 0.03 - 0.50 ng/mL Indeterminate: suggest serial studies if clinically indicated. Greater than 0.5 ng/mL Consistent with diagnosis of [place] 44 Therapeutic target for the treatment of diabetes Mellitus patients is <7% HBA1C, and in selective patients <6.0%.Please refer to [employer] Diabetic care guidelines for further information. 45 SEE RESULT BELOW Name: PRICE GUARDADO Arcenio : [address]: Jessie Lazar MD Acct: [id number] Unit: [id number] AGE: 60 Location: [place] [address] Re10/13/15 SEX: M Status: ADM IN SPEC: [id number] GABO: 10/13/150850 [address]: Jackie Dockery MD REQ: [id number] RECD: 10/13/15 STATUS: DOLORES CARLOS DR: Gabbie Botello MD _ SOURCE: BLOOD,VENO [facility]: ORDERED: Blood Cult Procedure Result Reported Site Aerobic Culture Bottle Final 10/18/15934 ML No Growth Day 5 Anaerobic Culture Bottle Final 10/18/15934 ML No Growth Day 5 * ML - [facility] ([facility]) . END OF REPORT * ML=Testing performed at Main Lab DEPARTMENT OF PATHOLOGY, [address] [place] [address] Vinayak Yanez M.D. Director [facility] # [id number] 46 Paper Tube Cutter: [id number] FERNANDO PETTIT 47 SEE RESULT BELOW Name: PRICE GUARDADO : [address]: Jessie Lazar MD Acct: [id number] Unit: [id number] AGE: 60 Location: SDS Re10/13/15 SEX: M Status: REG SDC SPEC: [id number] GABO: 10/13/15-[address] [facility] [address]: Jessie Lazar MD REQ: [id number] RECD: 10/13/15 STATUS: RES OTHR DR: Gabbie [...] performed at Main Lab DEPARTMENT OF PATHOLOGY, [address] [place] [address] Vinayak Yanez M.D. Director [facility] # [id number] 48 SEE RESULT BELOW Name: PRICE GUARDADO : [address]: Jessie Lazar MD Acct: [id number] Unit: [id number] AGE: 60 Location: [facility] 338-01 Re10/13/15 Dis: 10/19/15 SEX: M Status: DIS IN SPEC: [id number] GABO: 10/13/[address]: Jessie Lazar MD REQ: [id number] RECD: 10/13/156386 STATUS: COMP OTHR DR: Gabbie Botello MD _ SOURCE: WOUND SPDESC:KNEE LEFT ORDERED: Tissue Cult/GS/R, Fungal - Other/R, Acid Fast Stain/U COMMENTS: CLOSTRIDIUM FINDINGS IN ADDITION TO S. AUREUS: Verbal to DR. BOTELLO by [id number] at 1411 on 10/15/15. Results read back [...] performed at Main Lab DEPARTMENT OF PATHOLOGY, [address] [place] [address] Vinayak Yanez M.D. Director [facility] # [id number] Patient: PRICE GUARDADO [id number] (Continued) Specimen: [id number] Collected: 10/13/15 Received: 10/13/15 (Continued) Procedure Result [...] performed at Main Lab DEPARTMENT OF PATHOLOGY, [address] [place] [address] Vinayak Yanez M.D. Director [facility] # [id number] 49 SEE RESULT BELOW Name: PRICE GUARDADO : [address]: Jessie Lazar MD Acct: [id number] Unit: [id number] AGE: 60 Location: [place] [address] Re10/13/15 SEX: M Status: ADM IN SPEC: [id number] GABO: 10/13/15-[address] [facility] [address]: Jessie Lazar MD REQ: [id number] RECD: 10/13/157664 STATUS: RES OTHR DR: Gabbie Botello MD _ SOURCE: WOUND SPDESC:KNEE LEFT ORDERED: Anaerobic Cult/R, MRSA/SA SSTI/R, Culture Stain/R, Fungal - Other /R, Acid Fast Stain/U COMMENTS: Verbal to GEMINI REYES [facility]ARM by [id number] at 2020 on 10/13/15. Results read back [...] performed at Main Lab DEPARTMENT OF PATHOLOGY, [address] [place] [address] Vinayak Yanez M.D. Director [facility] # [id number] Patient: PRICE GUARDADO [id number] (Continued) Specimen: [id number] Collected: 10/13/15 Received: 10/13/15 (Continued) Procedure Result Reported Site Acid Fast Stain - Direct Final (continued) 10/14/15809 Due to limited sensitivity of the smear, results should be used as an adjunct in evaluating the patient's status and cultural examination is highly recommended for diagnosis. * ML - MAIN LAB ([facility]) . END OF REPORT * ML=Testing performed at Main Lab DEPARTMENT OF PATHOLOGY, [address] [place] [address] Vinayak Yanez M.D. Director [facility] # [id number] 50 SEE RESULT BELOW Name: DEBBYPRICE : [address]: Jessie Lazar MD Acct: [id number] Unit: [id number] AGE: 60 Location: [place] [address]- Re10/13/15 Dis: 10/19/15 SEX: M Status: DIS IN SPEC: [id number] GABO: 10/13/15-[address] [facility] [address]: Jessie Lazar MD REQ: [id number] RECD: 10/13/15 STATUS: [facility] DR: Gabbie Botello MD _ SOURCE: WOUND SPDESC:KNEE LEFT ORDERED: Anaerobic Cult/R, MRSA/SA SSTI/R, Culture Stain/R, Fungal - Other /R, Acid Fast Stain/U COMMENTS: Verbal to GEMINI REYES PHARM by [id number] at 2020 on 10/13/15. Results read back accurately. CLOSTRIDIUM FINDINGS IN ADDITION TO S. AUREUS: Verbal to DR. BOTELLO by [id number] at 1411 on 10/15/15. Results read back [...] performed at Main Lab DEPARTMENT OF PATHOLOGY, [address] [place] [address] Vianyak Yanez M.D. Director [facility] # [id number] Patient: PRICE GUARDADO [id number] (Continued) Specimen: [id number] Collected: 10/13/15 Received: 10/13/15 (Continued) Procedure Result [...] These antibiotics are not available in the [facility] Formulary Contact the Microbiology Department for any additional antibiotic reporting. Fungal Cult - Other Sources Final 11/14/15- 1427 ML Fungal Culture No Growth of Mycotic Organisms 4 weeks Acid Fast Stain - Direct Final 10/14/15- 0810 ML CONTINUED ON NEXT PAGE * ML=Testing performed at Main Lab DEPARTMENT OF PATHOLOGY, [address] [place] [address] Vinayak Yanez M.D. Director [facility] # [id number] Patient: PRICE GUARDADO [id number] (Continued) Specimen: [id number] Collected: 10/13/15 Received: 10/13/15 (Continued) Procedure Result Reported Site Acid Fast Stain - Direct Final (continued) 10/14/15809 AFB Smear Result No Acid Fast Bacillus Present (Negative) Preparation By Direct Smear Due to limited sensitivity of the smear, results should be used as an adjunct in evaluating the patient's status and cultural examination is highly recommended for diagnosis. * ML - [facility] ([facility]) . END OF REPORT * ML=Testing performed at [facility] Lab DEPARTMENT OF PATHOLOGY, [address] [place] [address] Vinayak Yanez M.D. Director [facility] # [id number] 51 SOURCE: KNEE, KNEE WOUND SWAB MYCOBACTERIAL CULTURE FINAL No growth after 60 days of incubation. Test Performed by: [place] [address] Assistant Professor Of Art: Cam Isidro II, M.D., Ph.D. 52 SHAD MATTHEWS to be notified Paper Tube Cutter: [id number] JERMAN BRANHAM 53 Reference Range and Interpretation: TnI (ng/mL) Interpretation Less Than 0.03 ng/mL Not supportive of diagnosis of [place] 0.03 - 0.50 ng/mL Indeterminate: suggest serial studies if clinically indicated. Greater than 0.5 ng/mL Consistent with diagnosis of [place] 54 Comment: L knee, second specimen in EDTA tube 55 Red 56 Differential performed on concentrated smear. 57 Acute inflammation. Recommend correlation with microbiology culture studies. Reviewed by Abby Ellis MD 58 SEE RESULT BELOW Name: PRICE GUARDADO : [address]: Jessie Lazar MD Acct: [id number] Unit: [id number] AGE: 60 Location: [place] [address] Re10/13/15 SEX: M Status: ADM IN SPEC: [id number] GABO: 10/13/[address]: Jackie Dockery MD REQ: [id number] RECD: 10/13/15 STATUS: DOLORES CARLOS DR: Gabbie Botello MD _ SOURCE: JOINT FLUI SPDESC: ORDERED: BF Cult Bottles Procedure Result Reported Site BF Aerobic Culture Bottle Final 10/18/15- 0434 ML No Growth Day 5 BF Anaerobic Culture Bottle Final 10/18/15- 0434 ML No Growth Day 5 * ML - [facility] ([facility]) . END OF REPORT * ML=Testing performed at Main Lab DEPARTMENT OF PATHOLOGY, [address] [place] [address] Vinayak Yanez M.D. Director [facility] # [id number] 59 Acute inflammation. Recommend correlation with microbiology culture studies. Reviewed by Abby Ellis MD 60 REFERENCE VALUE Not Applicable 61 Test Performed by: [place] [address] Assistant Professor Of Art: Cam Isidro II, M.D., Ph.D. 62 REFERENCE VALUE Not Applicable 63 Test Performed by: [facility] [place] [address] Assistant Professor Of Art: Cam Isidro II, M.D., Ph.D. 64 Because ethnic data is not always [...] 5 Kidney failure <15 (or dialysis) 65 SEE RESULT BELOW Name: PRICE GUARDADO Arcenio : [address]: Jessie Lazar MD Acct: [id number] Unit: [id number] AGE: 60 Location: [place] [address] Re10/13/15 SEX: M Status: ADM IN SPEC: [id number] GABO: 10/13/[address] [facility] [address]: Jackie Dockery MD REQ: [id number] RECD: 10/13/15 STATUS: DOLORES CARLOS DR: Gabbie Botello MD _ SOURCE: MISC SOURC SPDESC:KNEE LEFT ORDERED: Culture Stain COMMENTS: Comment: Left knee laceration swab CORRECTED RESULT: Verbal to [id number] by [id number] at 0822 on 10/13/15. Results read back accurately. CLOSTRIDIUM FINDINGS IN ADDITION TO S. AUREUS: Verbal to DR. BOTELLO by [id number] at 1411 on 10/15/15. Results read back [...] performed at Main Lab DEPARTMENT OF PATHOLOGY, [address] [place] [address] Vinayak Yanez M.D. Director [facility] # [id number] Patient: PRICE GUARDADO [id number] (Continued) Specimen: [id number] Collected: 10/13/15 Received: 10/13/15 (Continued) Procedure Result Reported Site Wound/Misc Culture Final (continued) 10/15/15- 1420 1. STAPHYLOCOCCUS AUREUS M.I.C. RX --------- ------ [...] These antibiotics are not available in the [facility] Formulary Contact the Microbiology Department for any additional antibiotic reporting. * ML - MAIN LAB ([facility]) . END OF REPORT * ML=Testing performed at Main Lab DEPARTMENT OF PATHOLOGY, [address] [place] [address] Vinayak Ynaez M.D. Director [facility] # [id number] 66 Acute inflammation: >10.00 67 RESULTS VERIFIED BY REPEAT ANALYSIS 68 consistent w/ previous results 69 INVALID 70 RESULTS VERIFIED BY REPEAT ANALYSIS 71 RESULT SUN'D 72 GREATER THAN 1.060 73 Because ethnic data is not always readily [...] 15-29 5 Kidney failure <15 (or dialysis) 74 Reference Range and Interpretation: TnI (ng/mL) Interpretation Less Than 0.06 ng/mL Not supportive of diagnosis of [place] 0.06 - 0.50 ng/mL Indeterminate: suggest serial studies if clinically indicated. Greater than 0.5 ng/mL Consistent with diagnosis of [place] 75 The detection limit for Ethanol is 10.0 mg/dl . Values less than 10.0 mg/dl cannot be accurately measured. 76 RUN DATE: 11/12/12 [facility] LAB LIVE PAGE 1 RUN TIME: [address] [place] [address] Specimen Inquiry Name: PRICE GUARDADO : [address]: Eliot Valiente MD Acct: [id number] Unit: [id number] AGE: 57 Location: ENDO Re11/11/12 SEX: M Status: REG REF SPEC: [id number] GABO: 11/11/12- SUBM DR: Eliot Valiente MD REQ: [id number] RECD: 11/11/12 STATUS: DARIANA CARLOS DR: Doroteo [...] specimen is received in formalin labelled Price Rg. Debby, Transverse Colon Polyp, and consists of a polypoid chavez, soft tissue fragment measuring 0.6 x 0.5 x 0.5 cm. Submitted entirely, one cassette. 2. The specimen is received in formalin labelled Price C. Lambert, Colon Polyp at 20 cm., and consists of chavez-pink, soft tissue fragments measuring 0.2 x 0.1 x 0.1 cm. in aggregate. Submitted entirely, one cassette. Signed (signature on file) Vinayak Yanez MD [id number] END OF REPORT * ML=Testing performed at Main Lab DEPARTMENT OF PATHOLOGY, [address] [place] [address] Vinayak Yanez M.D. Director [facility] Permit #[id number] 77 results sun'd and triaged provider 78 RESULT SUN'D 79 RESULT SUN'D MD AWARE 80 RESULT SUN'D 81 Anion gap measurement may be of limited value in the presence of any alkalosis, especially in a combined acid base disorder. . 82 Note change in reference range as of 05/20/08. The change was based on recommendations from the [employer]. 83 A metabolite of Naproxen, O-desmethylnaproxen, has been shown to interfere with the [place] method for measuring total bilirubin. Samples from patients who have taken Naproxen have shown spurious elevation in total bilirubin levels. 84 Because ethnic data is not always readily [...] 15-29 5 Kidney failure <15 (or dialysis) 85 Lymphopenia % H H Check Failed 86 The detection limit for ETHANOL is 10.0 mg/dl . Values less than 10.0 mg/dl cannot be accurately measured. . 87 FASTING 88 results rechecked 89 RESULTS RECKD' Procedures Date CPT Code Description Status 06/12/2018 19651 Finger Or Heel Stick Completed 12/23/2017 08379 Finger Or Heel Stick Completed 06/19/2017 89288 Finger Or Heel Stick Completed 04/16/2017 98937 Finger Or Heel Stick Completed 03/30/2017 Diabetic Retinal Eye Exam Completed 07/25/2016 43862 Finger Or Heel Stick Completed 04/19/2016 89022 Makenzie-Noninvasive physiologic studies of upper or lower Completed extremity 09/08/2015 72484 Finger Or Heel Stick Completed 07/21/2013 66584 Finger Or Heel Stick Completed 03/10/2013 61465 Finger Or Heel Stick Completed 12/02/2012 25761 Finger Or Heel Stick Completed 11/18/2012 90627 Finger Or Heel Stick Completed 11/11/2012 Colonoscopy Completed 11/04/2012 40076 Finger Or Heel Stick Completed 10/02/2012 05743 Finger Or Heel Stick Completed Encounters Type Date Location Provider CPT E/M Dx Office Visit 07/11/2018 3:45p [place] [address] R19.7 R11.10 Office Visit 06/12/2018 3:40p [place] [address] M86.172 E11.65 I73.9 Office Visit 04/28/2018 3:15p Main Office Cas Robert 43760 E11.65 I73.9 Office Visit 02/22/2018 11:20a Main Office Gabbie Botello M.D. 60591 R19.7 F33.0 I70.213 G40.89 E11.65 Z12.11 Office Visit 12/23/2017 12:00p Main Office Gabbie Botello M.D. 30122 E11.65 G25.0 E78.2 Z12.11 Office Visit 08/20/2017 1:20p [facility] Gabbie Botello M.D. 41516 E11.65 E78.2 F33.0 G25.0 Office Visit 06/19/2017 10:40a [facility] Gabbie Botello M.D. 74657 E11.65 E78.2 F33.0 I70.213 G25.0 G40.89 M25.511 Office Visit 04/16/2017 1:30p Main Office Gabbie Botello M.D. 82375 E11.65 E78.2 F33.0 I70.213 Office Visit 01/15/2017 2:40p Main Office Gabbie Botello M.D. 16792 E11.65 E78.2 R11.10 F33.0 Office Visit 11/27/2016 1:00p [facility] Gabbie Botello M.D. 62102 E11.65 E78.2 F33.0 R11.10 R19.7 G25.0 Office Visit 07/25/2016 1:40p [facility] Gabbie Botello M.D. 38438 E11.65 E78.2 I70.213 R19.7 Office Visit 06/19/2016 10:00a Main Office Heidi AbdallaImelda-C 57190 M79.671 R23.8 Office Visit 05/03/2016 5:00p Main Office Gabbie Botello M.D. 73494 E11.65 R11.2 Office Visit 04/14/2016 9:00a Main Office Katharina GuadarramaImelda-C 84011 E11.65 R53.83 M79.604 M79.605 R11.2 E78.1 Office Visit 01/17/2016 1:40p Main Office Gabbie Botello M.D. 35545 E11.65 E78.2 Z71.6 F17.210 Office Visit 12/08/2015 5:00p Main Office Gabbie Botello M.D. 53361 E11.65 E78.2 Office Visit 09/08/2015 5:20p Main Office Gabbie Botello M.D. 57158 E11.65 R15.2 Office Visit 07/07/2015 6:40p Main Office Gabbie Botello M.D. 48192 E11.65 E78.2 R15.2 Office Visit 05/05/2015 8:00p Main Office Gabbie Botello M.D. 79254 250.82 272.2 787.63 Office Visit 01/11/2015 10:10a Main Office Gabbie Botello M.D. 83663 784.7 787.63 250.00 Office Visit 01/06/2015 5:00p Main Office Gabbie Botello M.D. 72355 250.82 272.2 791.0 272.1 Office Visit 10/28/2014 7:30p Main Office Gabbie Botello M.D. 66019 250.82 272.2 Office Visit 10/05/2014 10:30a Main Office [place]-C 39566 250.82 787.91 250.00 Office Visit 07/21/2013 1:00p Main Office [place]-C 03852 250.00 333.1 272.2 Office Visit 03/10/2013 1:00p Main Office [place]-C 98120 250.00 729.5 Office Visit 12/02/2012 1:15p Main Office [place]-C 75411 250.00 Office Visit 11/18/2012 12:00p Main Office [place]-C 20395 250.00 Office Visit 11/04/2012 1:00p Main Office [place]-C 62954 250.00 682.3 Office Visit 10/02/2012 1:15p Main Office [place]-C 43690 250.02 788.34 Office Visit 09/02/2012 1:15p Main Office [place]-C 30510 250.02 Office Visit 05/02/2012 10:00a Main Office Yogesh Hutton M.D. 04957 682.3 250.00 Office Visit 05/07/2011 11:00a Main Office Doroteo Willis M.D. 13764 782.1 250.00 Office Visit 03/02/2011 11:20a Main Office Doroteo Willis M.D. 87208 723.1 724.5 Office Visit 02/21/2011 1:20p Main Office Doroteo Willis M.D. 75874 723.1 724.5 955.2 368.2 Office Visit 01/12/2011 9:40a Main Office Doroteo Willis M.D. 99997 311 250.00 780.79 Office Visit 04/06/2010 10:00a Main Office Doroteo Willis M.D. 67838 311 300.00 Office Visit 03/10/2010 11:20a Main Office Doroteo Willis M.D. 30249 311 Office Visit 01/25/2010 1:20p Main Office Doroteo Willis M.D. 48415 250.00 434.91 Office Visit 06/20/2009 1:00p Main Office Doroteo Willis M.D. 74051 311 434.91 Office Visit 04/25/2009 9:40a Main Office Doroteo Willis M.D. 39856 311 Office Visit 03/18/2009 11:00a Main Office Doroteo Willis M.D. 83680 523.01 Office Visit 02/25/2009 11:00a Main Office Doroteo Willis M.D. 85106 250.00 Office Visit 02/04/2009 9:40a Main Office Doroteo Willis M.D. 54093 V77.1 V77.0 V77.91 V78.1 250.00 305.1 Plan of Care Future Appointment(s):10/27/2018 3:00 pm - Gabbie Botello M.D. at [facility] - Gabbie Botello M.D.Z00.01 Encounter for general adult medical exam w abnormal findingsComments:Encourage an active and healthy lifestyle with proper eating habits including fruits, vegetables, 6-8 glasses of water a day and monitoring portion size. Recommend 30 minutes of daily physical activityincluding walking, aerobic exercise, sports, yoga or dance. Any activity is better than no activity.Recommend routine eye and dental exams. Next physical is due in 1-2 years. Recommend annual influenza mhjuhdhnbiqQ39.213 [place] arteries of extrm w intrmt [place], bi legsNew Medication:Atorvastatin Calcium 10 mgComments:will be seeing vascular hpbcskpD21.0 Major depressive disorder, recurrent, mildComments:following [id number] Essential (primary) hypertensionComments:The patient will continue to monitor blood pressure and let me know the blood pressure results if there are readings persistently above 140/90. Goal blood pressure is less than 130/80. Recommend low salt/cardiac diet such as the Mediterranean diet and routine exercise at least 30 minutes a day. increase to 10mg kjhcypddepT59.40 Type 2 diabetes mellitus with diabetic neuropathy, unspNew Labs:Hemoglobin A1c (Fma) Comments:Recommend yearly diabetic eye and foot exams, and check on blood pressure periodically. Goal blood sugar is less than 140 in the morning or A1c less than 7. Recommend monitoring portion size, decreased carbohydrate intake (breads, pasta, rice, candy, desserts, and sweetened beverages/alcohol) and routine daily exercise.K31.84 GastroparesisComments:will see GI ; ok zofran used in hospital, reglan interacts with wuezvmcxzpkL16.9 Pneumonia, unspecified organismComments:finishing antibiotics, monitor diarrheaAllComments:~B_~U_ Medication Management~b_~u_ Patient Understands medications he's taking? Yes No Are there Barriers to Adherence? Yes No Has the patient been asked about herbal supplements and therapies, and OTC meds? Yes No
[2018-09-29 16:37] LABS: ABS Basophils 0.1 10^3/ul (0-0.2); ABS Eosinophils 0.3 10^3/ul (0-0.6); ABS Lymphocytes 0.6 10^3/ul (1.0-4.8); ABS Monocytes 0.6 10^3/ul (0-0.8); ABS Neutrophils 5.5 10^3/ul (1.5-7.7); ABS Nucleated RBC 0 10^3/ul; Eosinophil % 3.9 %; Hematocrit 34 % (42-52); Hemoglobin 11.8 g/dl (14.0-18.0); Lymphocyte % 8.4 %; Mean Corpuscular HGB Conc 35 g/dl (31-36); Mean Corpuscular Hemoglobin 29 pg (27-31); Mean Corpuscular Volume 85 fL (80-94); Nucleated Red Blood Cells % 0.1; Platelet Count 167 10^3/ul (150-450); Red Blood Count 4.02 10^6/ul (4.00-5.40); Red Cell Distribution Width 14 % (10.5-15); White Blood Count 7.1 10^3/ul (3.5-10.8)
[2018-09-29 16:54] LABS: Albumin 3.7 g/dL (3.2-5.2); Albumin/Globulin Ratio 1.3 (1-3); BUN/Creatinine Ratio 8.2 (8-20); C Reactive Protein 21.46 mg/L (<8.01); Calcium 8.8 mg/dL (8.6-10.3); EGFR Non-African American 40.7 (>60); Globulin 2.9 g/dL (2-4); Potassium 4.6 mmol/L (3.5-5.0); Total Bilirubin 0.2 mg/dL (0.2-1.0); Total Protein 6.6 g/dL (6.4-8.9)
[2018-09-29 19:48] LABS: Urine Appearance Clear; Urine Bacteria Absent (Absent); Urine Bilirubin Negative (Negative); Urine Blood 1+ (Negative); Urine Color Yellow; Urine Glucose 2+(150 mg/dL) (Negative); Urine Ketones Negative (Negative); Urine Nitrite Negative (Negative); Urine Protein 2+(100 mg/dL) (Negative); Urine Red Blood Cell 1+(3-5/hpf) (Absent); Urine Specific Gravity 1.014 (1.010-1.030); Urine Urobilinogen Negative (Negative); Urine White Blood Cell 1+(6-10/hpf) (Absent)
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
[2018-09-29] MEDS ORDERED: NS 0.9% 1000 ML* 1,000 ML IV ONE (19:54)
[2018-09-29] MEDS ORDERED: cefTRIAXone(*) 1 GM in NS 0.9% 50 ML* 50 ML IVPB ONE (19:54)
[2018-09-29 21:15] VITALS: BP 147/90
== END 2018-09-29 21:14 | disposition home or self-care (01) ==
LOC: ED 15:20
DX: M86.9 Osteomyelitis, unspecified (principal); E11.9 Type 2 diabetes mellitus without complications; Z89.412 Acquired absence of left great toe; Z87.891 Personal history of nicotine dependence
CPT/HCPCS: 36415; 80053; 81003; 81015; 83605; 85025; 86140; 87086; 96365; 99282; J0696

== ENCOUNTER 2018-11-03 14:26 | Emergency (ER) | payer OTHER, MEDICARE ==
--- OUTSIDE RECORDS SUMMARY | 2018-11-03 15:06 | XMS REPORT | Continuity of Care Document ---
:1955 External Reference #:[id number] Author Name Della Li Care Team Providers Name Role Phone Gabbie Shell MD Primary Care Physician Unavailable Payers Type Date Identification Numbers Payment Provider Subscriber Effective: Policy Number: [id number] [employer] Maryam Debby 2010 PayID: [id number] [address] [place] [address] Effective: 2018 Policy Number: [id number] Medicare Price Guardado PayID: [id number] [address] [place] [address] Expires: 2018 Policy Number: [id number] Medicare Price Guardado PayID: [id number] [address] [place] [address] Expires: 2018 Policy Number: [id number] Medicare Price Guardado PayID: [id number] [address] [place] [address] Expires: 2018 Policy Number: [id number] [employer] Insurance Maryam Guevara Debby Group Number: [id number] [address] PayID: [id number] [place] [address] Onset: 2015 Policy Number: [id number] Jorden Price Rg Debby Group Number: [id number] [address] PayID: [id number] MAMADOU Pardo [id number] Advance Directives Description No Information Available Problems Date Description Provider Status Onset: 04/22/2018 Acute osteomyelitis of ankle Jose Juan Fernando, MD Active and/or foot Onset: 04/24/2018 Type [...] 07/23/2018 Atherosclerosis of arteries of the Richardson Mahan M.D. 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 day for 14 Macen, days M.D. Oxycodone HCL 10/09/ Active Tablets 5mg 10tabs 1 tabs by Jose Juan 2019 mouth Fernando, every 6 MD hours as needed Metformin HCL / Active Tablets 1000mg 180tab 1 po bid Unknown 0000 s Zoloft 00/ Active 100mg 2 po daily Unknown 0000 [...] Unknown ER (XL) 0000 24HR every day Aspirin Adult / Active Chewtabs 81mg 1 by mouth Unknown Low Strength 0000 every day Clopidogrel / Active Tablets 75mg 1 by mouth Unknown 0000 every evening Acetaminophen / Active Tablets 325mg 2 tablets Unknown 0000 by mouth every 6 hours as needed for pain/fever CBD / Active Capsule 1 q 6hr prn Unknown 0000 per protocol Loperamide HCL / Active Capsules 2mg Take 2 Unknown 0000 Capsules By Mouth AT The Onset Of Diarrhea, Can Repeat After Each Loose Stool - Maximum Daily Dose Of 8 Per Day Lisinopril / Active Tablets 5mg Take 1 Unknown 0000 Tablet By Mouth Every Day Ondansetron HCL / Active Tablets 4mg Take One Unknown 0000 Tablet By Mouth Every 6 Hours as Needed For Nausea/Vom iting Atorvastatin / Active Tablets 10mg Take 1/2 Unknown Calcium 0000 Tablet By Mouth Every Day V-Go 20 / Active Kit Use as Unknown 0000 Directed To Inject Beneath The Skin Daily Onetouch Verio / Active Strips Test Blood Unknown 0000 Sugar 4 Times A Day Before Meals And Nightly Sildenafil / Active Tablets 50mg Take as Unknown Citrate 0000 Directed Vancomycin HCL / Active Solution 1gm iv every Unknown 0000 Rec 24 hours x 28 days through [facility] ([facility] [place]) Lamotrigine ER 08/01/ Hx Tablets 200 mg Jamar 2017 - daily D. 07/31/ Ricky 2017 M.D. Metronidazole 06/10/ Hx Tablets 500mg 42tabs 1 tab by Jamar 2017 - mouth D. 05/23/ three Ricky, 2017 times per M.D. day Keflex 05/05/ Hx Capsules 250mg 30caps Take 1 Jose Juan 2017 - capsule Fernando 06/09/ qid 2018 Clindamycin HCL 05/02/ Hx Capsules 300mg 30caps Take 1 Jose Juan 2017 - Capsule By Fernando, 05/07/ Mouth 2018 Three Times Daily Oxycodone HCL 04/24/ Hx Tablets 5mg 15tabs 1 tab Jose Ujan 2017 - every 4-6 Fernando, 07/06/ hours as 2018 needed for pain mdd 4 Clindamycin HCL 11/01/ Hx Capsules 300mg 90caps 1 tabs by Jamar 2016 - mouth 3 D. 04/06/ times a Ricky, 2015 day M.D. Lamictal 05/13/ Hx Tablets 25mg [...] 7 units sc at hs Bupropion HCL /00/ Hx Tablets ER 300mg 1 by mouth Unknown ER (XL) 0000 - 24HR every day 2017 Lamictal /00/ Hx (?) 1 po daily Unknown 0000 - 2012 Lipitor 00/ Hx Tablets 20mg 90tabs one tab po Unknown 0000 - qhs 2015 Aspirin 00/00/ Hx 325mg 1 tab po Unknown 0000 - daily 2015 Clindamycin HCL 00/00/ Hx Capsules 300mg 1 capsule Unknown 0000 - by mouth 11/01/ four times 2016 a day Cefazolin 00/00/ Hx Solution 1gm 2 gm iv Unknown Sodium 0000 - Rec every 8 02/ hours 2016 Lisinopril 00/00/ Hx Tablets 20mg 1 by mouth Unknown 0000 - every day 2017 Percocet 00/00/ Hx Tablets 5-325mg 1 by mouth Unknown 0000 - every 4 04/21/ hours as 2018 needed pain Bentyl 00/00/ Hx Capsules 10mg take 1 Unknown 0000 - tablet by mouth with 2016 every meal Tramadol HCL 00/00/ Hx Tablets 50mg 1 tablets Unknown 0000 - every 6 06/ hours as 2016 needed Levofloxacin 00/00/ Hx Tablets 750mg Take 1 Unknown 0000 - Tablet By Mouth 2018 Every Day Clindamycin HCL 00/00/ Hx Capsules 300mg Take 1 Unknown 0000 - Capsule By Mouth 2018 Three Times Daily Metronidazole / Hx Tablets 500mg Take 1 Unknown 0000 - Tablet By 2017 Three Times Daily Glucotrol XL / Hx Tablets ER 10mg Unknown 0000 - 24HR 2017 Cefepime HCL / Hx Solution 1gm grams Unknown 0000 - Rec every 12 10/ hours 2017 through [facility] Vancomycin HCL / Hx Solution 1000mg iv every Unknown 0000 - Rec 24 hours through 2017 [facility] Docusate / Hx Capsules 100mg 1 tab by Unknown 0000 - mouth 2-3 09/30/ times a 2019 day as needed Doxycycline / Hx Capsules 100mg one tablet Unknown Hyclate 0000 - twice 10/13/ daily 2018 Cipro / Hx Tablets 500mg 1 by mouth Unknown 0000 - twice a day x 28 2018 days ([facility]) Immunizations Description No Information Available Vital Signs Date Vital Result Comment 10/23/2018 1:50pm Height 67 inches 5'7" Weight 181.00 lb Heart Rate 72 /min BP Systolic Sitting 110 mmHg BP Diastolic Sitting 62 mmHg Respiratory Rate 14 /min Body Temperature 97.9 F BMI (Body Mass Index) 28.3 kg/m2 10/21/2018 2:23pm Height 67 inches 5'7" Heart Rate 92 /min BP Systolic Sitting 104 mmHg BP Diastolic Sitting 66 mmHg Respiratory Rate 16 /min Pain Level 0 10/07/2018 10:51am Height 67 inches 5'7" Heart Rate 96 /min BP Systolic Sitting 104 mmHg BP Diastolic Sitting 50 mmHg Body Temperature 99.0 F Pain Level 0 10/06/2018 2:31pm Height 67 inches 5'7" Weight 178.12 lb Heart Rate 130 /min BP Systolic 117 mmHg BP Diastolic 70 mmHg Body Temperature 98.2 F Pain Level 0 O2 % BldC Oximetry 98 % BMI (Body Mass Index) 27.9 kg/m2 09/12/2018 11:15am Height 67 inches 5'7" Weight [...] Date Facility Test Result H/L Range Note CBC Auto Diff 10/20/2018 [facility] White Blood 9.2 10^3/uL N 3.5-10.[address] [place] [address] [phone] Red Blood Count 3.98 10^6/uL Low 4.00-5.40 Hemoglobin 11.2 g/dL Low 14.0-18.0 Hematocrit 33 % Low 42-52 Mean Corpuscular Volume 83 fL N 80-94 Mean Corpuscular Hemoglobin 28 pg N 27-31 Mean Corpuscular HGB Conc 34 g/dL N 31-36 Red Cell Distribution Width 13 % N 10.5-15 Platelet Count 192 10^3/uL N 150-450 Mean Platelet Volume 7.3 fL Low 7.4-10.4 Abs Neutrophils 7.6 10^3/uL N 1.5-7.7 Abs Lymphocytes 0.5 10^3/uL Low 1.0-4.8 Abs Monocytes 0.7 10^3/uL N 0-0.8 Abs Eosinophils 0.3 10^3/uL N 0-0.6 Abs Basophils 0.1 10^3/uL N 0-0.2 Abs Nucleated RBC 0 10^3/uL Granulocyte % 82.4 % Lymphocyte % 5.4 % Monocyte % 7.7 % Eosinophil % 3.7 % Basophil % 0.8 % Nucleated Red Blood Cells % 0 Comp Metabolic Panel 10/20/2018 [facility] Sodium 136 mmol/L N 135-[address] [place] [address] [phone] Potassium 4.8 mmol/L N 3.5-5.0 Chloride 103 mmol/L N 101-111 Co2 Carbon Dioxide 26 mmol/L N 22-32 Anion Gap 7 mmol/L N 2-11 Glucose 280 mg/dL High 70-100 Blood Urea Nitrogen 17 mg/dL N 6-24 Creatinine 1.66 mg/dL High 0.67-1.17 BUN/Creatinine Ratio 10.2 N 8-20 Calcium 9.0 mg/dL N 8.6-10.3 Total Protein 6.3 g/dL Low 6.4-8.9 Albumin 3.7 g/dL N 3.2-5.2 Globulin 2.6 g/dL N 2-4 Albumin/Globulin Ratio 1.4 N 1-3 Total Bilirubin 0.40 mg/dL N 0.2-1.0 Alkaline Phosphatase 70 U/L N 34-104 Alt 11 U/L N 7-52 Ast 12 U/L Low 13-39 Egfr Non- 41.8 >60 Egfr 50.6 >60 1 Laboratory test 10/20/2018 [facility] Vancomycin Trough 12.0 g /mL finding [address] [place] [address] [phone] C Reactive Protein 6.29 mg/L N <8.01 Laboratory test 10/09/2018 [facility] Point of Care 115 mg/dL High 70-100 [address] [place] [address] [phone] Laboratory test 10/09/2018 [facility] Point of Care 312 mg/dL High 70-100 [address] [place] [address] [phone] Comp Metabolic 06/23/2018 [facility] Sodium 137 mmol/L N 135- [address] [place] [address] [phone] Potassium 4.9 mmol/L N 3.5-5.0 Chloride 107 [...] Egfr Non- 42.8 >60 Egfr 51.8 >60 4 Laboratory test 06/23/2018 [facility] Vancomycin Trough 17.8 g /mL finding [address] [place] [address] [phone] C Reactive Protein 4.23 mg/L N <8.01 Comp Metabolic Panel 06/17/2018 [facility] Sodium 133 mmol/L Low 135-145 [address] [place] [address] [phone] Chloride 100 mmol/L Low 101-111 Co2 Carbon [...] Egfr Non- 42.5 >60 Egfr 51.4 >60 5 Potassium 5.3 mmol/L High 3.5-5.0 Anion Gap 7 mmol/L N 2-11 Glucose 553 mg/dL High 70-100 6 Laboratory test 06/17/2018 [facility] Vancomycin Trough 21.6 g /mL finding [address] [place] [address] [phone] C Reactive Protein 6.85 mg/L N <8.01 Laboratory test 06/13/2018 [facility] C Difficile PCR SEE RESULT [address] [place] [address] [phone] CBC Auto Diff 06/11/2018 [facility] White Blood 6.9 10^3/uL N 3.5-[address] Count .8 [place], [place] [phone] Red Blood Count 3.88 10^6/uL Low 4.00-5.40 [...] Cells % 0.1 Comp Metabolic Panel 06/11/2018 [facility] Sodium 137 mmol/L N 135-[address] [place] [address] [phone] Potassium 4.4 mmol/L N 3.5-5.0 Chloride 102 [...] Egfr Non- 44.1 >60 Egfr 53.3 >60 8 Laboratory test 06/11/2018 [facility] Vancomycin Trough 24.8 g /mL finding [address] [place] [address] [phone] C Reactive Protein 4.81 mg/L N <8.01 Laboratory test 04/24/2018 [facility] Point of Care 331 mg/dL High 70-100 [address] [place] [address] [phone] Laboratory test 04/24/2018 [facility] Surgical SEE RESULT [address] [place] [address] [phone] Laboratory test 04/24/2018 [facility] Point of Care 234 mg/dL High 70-100 [address] [place] [address] [phone] Laboratory test 04/24/2018 [facility] Point of Care 281 mg/dL High 70-100 [address] [place] [address] [phone] Laboratory test 04/24/2018 [facility] Point of Care 232 mg/dL High 70-100 [address] [place] [address] [phone] Laboratory test 11/14/2015 [facility] Erythrocyte Sed 66 mm/Hr High 0-[address] [place] [address] [phone] Comp Metabolic 11/14/2015 [facility] Sodium 135 mmol/L N 133- [address] [place] [address] [phone] Potassium 5.0 mmol/L N 3.5-5.0 Chloride 101 [...] 87.8 N >60 Egfr 112.9 N >60 14 Laboratory test 11/14/2015 [facility] C Reactive 2.79 mg/L N < 5.00 [address] [place] [address] [phone] CBC Auto Diff 11/14/2015 [facility] White Blood 8.0 N 3.5- 10.[address] Count 10^3/[place] [address] [phone] Red Blood Count 4.22 10^6/uL N 4.0-5.4 [...] % 0.1 N Comp Metabolic Panel 11/08/2015 [facility] Sodium 135 mmol/L N 133-[address] [place] [address] [phone] Potassium 5.1 mmol/L High 3.5-5.0 Chloride 101 [...] 82.3 N >60 Egfr 105.9 N >60 16 Laboratory test 11/08/2015 [facility] Erythrocyte Sed 77 mm/Hr High 0-[address] [place] [address] [phone] CBC Auto Diff 11/08/2015 [facility] White Blood 7.3 N 3.5- 10.[address] Count 10^3/[place] [address] [phone] Red Blood Count 4.45 10^6/uL N 4.0-5.4 [...] Cells % 0.6 N Laboratory test 11/08/2015 [facility] C Reactive 4.89 mg/L N < 5.00 [address] [place] [address] [phone] Comp Metabolic 10/31/2015 [facility] Sodium 134 mmol/L N 133- [address] [place] [address] [phone] Potassium 4.3 mmol/L N 3.5-5.0 Chloride 100 [...] 79.4 N >60 Egfr 102.1 N >60 18 Laboratory test 10/31/2015 [facility] C Reactive 9.73 mg/L High < 5.00 [address] [place] [address] [phone] CBC Auto Diff 10/31/2015 [facility] White Blood 9.1 N 3.5- 10.[address] Count 10^3/[place] [address] [phone] Red Blood Count 4.36 10^6/uL N 4.0-5.4 [...] Cells % 0.1 N Laboratory test 10/31/2015 [facility] Erythrocyte Sed 95 mm/Hr High 0-[address] [place] [address] [phone] CBC Auto Diff 10/24/2015 [facility] White Blood 10.3 N 3.5- 10.[address] Count 10^3/[place] [address] [phone] Red Blood Count 4.23 10^6/uL N 4.0-5.4 [...] % 0 N Comp Metabolic Panel 10/24/2015 [facility] Sodium 136 mmol/L N 133-[address] [place] [address] [phone] Potassium 4.9 mmol/L N 3.5-5.0 Chloride 102 [...] 71.6 N >60 Egfr 92.0 N >60 20 Laboratory test 10/24/2015 [facility] C Reactive 15.74 mg/L High < 5.00 [address] [place] [address] [phone] Laboratory test 10/13/2015 [facility] Point of Care 150 mg/dL High 74-106 [address] [place] [address] [phone] Laboratory test 10/13/2015 [facility] Wound SEE RESULT [address] Culture/[place] [address] [phone] Tissue (BX) Culture & Gram St SEE RESULT BELOW 24 MRSA/S. aureus Ssti PCR SEE RESULT BELOW 25 Anaerobic Culture SEE RESULT BELOW 26 Laboratory test 10/13/2015 [facility] Wound Culture/Sensi SEE RESULT [address] BELOW [place] [id number] [phone] Tissue (BX) Culture & Gram St SEE RESULT BELOW 28 MRSA/S. aureus Ssti PCR SEE RESULT BELOW 29 Anaerobic Culture SEE RESULT BELOW 30 Laboratory test 10/13/2015 [facility] Wound Culture/Sensi SEE RESULT [address] BELOW [place] [address]392 [phone] Tissue (BX) Culture & Gram St SEE RESULT BELOW 32 MRSA/S. aureus Ssti PCR SEE RESULT BELOW 33 Anaerobic Culture SEE RESULT BELOW 34 Laboratory test 10/13/2015 [facility] Wound Culture/Sensi SEE RESULT [address] [place] [address] [phone] Tissue (BX) Culture & Gram St SEE RESULT BELOW 36 MRSA/S. aureus Ssti PCR SEE RESULT BELOW 37 Anaerobic Culture SEE RESULT BELOW 38 Laboratory test 10/13/2015 [facility] Mycobacterial See Comment N [address] [place] [address] [phone] 1 Because ethnic data is not always [...] 5 Kidney failure <15 (or dialysis) 2 Mental Health Orderly: [id number] 3 Mental Health Orderly: [id number] 4 Because ethnic data is not always [...] 5 Kidney failure <15 (or dialysis) 5 Because ethnic data is not always [...] 5 Kidney failure <15 (or dialysis) 6 Critical Result [id number] Called to GONSALO at: 13:25:55 by:[id number] Read back by: GONSALO 7 SEE RESULT BELOW Name: PRICE GUARDADO : [address]: Jamar Pérez MD Acct: [id number] Unit: [id number] AGE: 62 Location: [facility] Re06/13/18 SEX: M Status: REG REF SPEC: [id number] GABO: 06/13/18-999 [facility] DR: Jamar Pérez MD REQ: [id number] RECD: 06/13/18 STATUS: COMP _ SOURCE: STOOL SPDESC: ORDERED: C. diff PCR Procedure Result Reported Site Stool Specimen Description Final 06/13/18- 1609 ML Stool Color Brown Stool Form Formed Stool Consistency Hard C. difficile PCR Final 06/13/18- 1609 ML Test not performed * - [facility] . END OF REPORT DEPARTMENT OF PATHOLOGY, [address] [place] [address] Vinayak Yanez M.D. Director [facility] # [id number] 8 Because ethnic data is not always [...] 5 Kidney failure <15 (or dialysis) 9 Mental Health Orderly: [id number] 10 SEE RESULT BELOW Name: PRICE GUARDADO : [address]: Jose Juan King MD Acct: [id number] Unit: [id number] AGE: 62 Location: OR Re04/24/18 SEX: M Status: [facility] SPEC: [id number] GABO: 04/24/18- SUBM DR: Jose Juan King MD REQ: [id number] RECD: 04/24/184580 STATUS: SOUT _ ORDERED: Decal, LEVEL 4 [...] margin blue and plantar margin black, and small business representative sections are submitted in cassettes A and B to include bone following decalcification in cassette A. Signed by and Reported on: Abby Ellis MD 04/29/18 1052 END OF REPORT DEPARTMENT OF PATHOLOGY, [address] [place] [address] Vinayak Yanez M.D. Director [facility] # [id number] 11 Mental Health Orderly: [id number] 12 Mental Health Orderly: [id number] 13 Mental Health Orderly: [id number] 14 Because ethnic data is not always [...] (or dialysis) 17 Acute inflammation: >10.00 18 Because ethnic data is not always [...] (or dialysis) 19 Acute inflammation: >10.00 20 Because ethnic data is not always [...] 5 Kidney failure <15 (or dialysis) 21 Acute inflammation: >10.00 22 Mental Health Orderly: [id number] FERNANDO PETTIT 23 SEE RESULT BELOW Name: PRICE GUARDADO : [address]: Jessie Lazar MD Acct: [id number] Unit: [id number] AGE: 60 Location: [facility] Re10/13/15 SEX: M Status: REG [facility] SPEC: [id number] GABO: 10/13/15-[address]: Jessie Lazar MD REQ: [id number] RECD: 10/13/15 STATUS: RES HR DR: Gabbie Shell MD _ SOURCE: [...] performed at Main Lab DEPARTMENT OF PATHOLOGY, [address] [place] [address] Vinayak Yanez M.D. Director [facility] # [id number] 24 SEE RESULT BELOW Name: PRICE GUARDADO : [address]: Jessie Lazar MD Acct: [id number] Unit: [id number] AGE: 60 Location: [place] [address] Re10/13/15 Dis: 10/19/15 SEX: M Status: DIS IN SPEC: [id number] GABO: 10/13/15-1640 [facility] DR: Jessie Lazar MD REQ: [id number] RECD: 10/13/15 STATUS: RES OTHR DR: Gabbie Shell MD _ SOURCE: WOUND SPDESC:KNEE LEFT ORDERED: Tissue Cult/GS/R, Fungal - Other/R, Acid Fast Stain/U COMMENTS: CLOSTRIDIUM FINDINGS IN ADDITION TO S. AUREUS: Verbal to DR. SHELL by [id number] at 1411 on 10/15/15. Results read back [...] Acid Fast Stain - Direct Final 10/14/15- 18 ML AFB Smear Result No Acid Fast Bacillus Present (Negative) Preparation By Direct Smear CONTINUED ON NEXT PAGE * ML=Testing performed at Main Lab DEPARTMENT OF PATHOLOGY, [address] [place] [address] Vinayak Yanez M.D. Director [facility] # [id number] Patient: PRICE GUARDADO [id number] (Continued) Specimen: [id number] Collected: 10/13/15-1639 Received: 10/13/15 (Continued) Procedure Result Reported Site Acid Fast Stain - Direct Final (continued) 10/14/15817 Due to limited sensitivity of the smear, results should be used as an adjunct in evaluating the patient's status and cultural examination is highly recommended for diagnosis. * ML - MAIN LAB ([facility]) . END OF REPORT * ML=Testing performed at Main Lab DEPARTMENT OF PATHOLOGY, [address] [place] [address] Vinayak Yanez M.D. Director [facility] # [id number] 25 SEE RESULT BELOW Name: PRICE GUARDADO Arcenio : [address]: Jessie Lazar MD Acct: [id number] Unit: [id number] AGE: 60 Location: [facility] 338- Re10/13/15 SEX: M Status: ADM IN SPEC: [id number] GABO: 10/13/15-1640 [facility] DR: Jessie Lazar MD REQ: [id number] RECD: 10/13/15 STATUS: RES OTHR DR: Gabbie Shell MD _ SOURCE: WOUND SPDESC:KNEE LEFT ORDERED: Anaerobic Cult/R, MRSA/SA SSTI/R, Culture Stain/R, Fungal - Other /R, Acid Fast Stain/U COMMENTS: Verbal to GEMINI CHAWLA by [id number] at 2020 on 10/13/15. Results read back [...] performed at Main Lab DEPARTMENT OF PATHOLOGY, [address] [place] [address] Vinayak Yanez M.D. Director [facility] # [id number] Patient: PRICE GUARDADO [id number] (Continued) Specimen: [id number] Collected: 10/13/15 Received: 10/13/15 (Continued) Procedure Result Reported Site Acid Fast Stain - Direct Final (continued) 10/14/15809 Due to limited sensitivity of the smear, results should be used as an adjunct in evaluating the patient's status and cultural examination is highly recommended for diagnosis. * ML - [facility] ([facility]) . END OF REPORT * ML=Testing performed at Main Lab DEPARTMENT OF PATHOLOGY, [address] [place] [address] Vinayak Yanez M.D. Director [facility] # [id number] 26 SEE RESULT BELOW Name: PRICE GUARDADO : [address]: Jessie Lazar MD Acct: [id number] Unit: [id number] AGE: 60 Location: [place] [address]- Re10/13/15 Dis: 10/19/15 SEX: M Status: DIS IN SPEC: [id number] GABO: 10/13/15-1640 [facility] DR: Jessie Lazar MD REQ: [id number] RECD: 10/13/15 STATUS: RES OTHR DR: Gabbie Shell MD _ SOURCE: WOUND SPDESC:KNEE LEFT ORDERED: Anaerobic Cult/R, MRSA/SA SSTI/R, Culture Stain/R, Fungal - Other /R, Acid Fast Stain/U COMMENTS: Verbal to GEMINI CHAWLA by [id number] at 2020 on 10/13/15. Results read back accurately. CLOSTRIDIUM FINDINGS IN ADDITION TO S. AUREUS: Verbal to DR. SHELL by [id number] at 1411 on 10/15/15. Results read back [...] [facility] DEPARTMENT OF PATHOLOGY, [address] [place] [address] Vinayak Yanez M.D. Director [facility] # [id number] Patient: PRICE GUARDADO [id number] (Continued) Specimen: [id number] Collected: 10/13/15-1639 Received: 10/13/15 (Continued) Procedure Result [...] performed at Main Lab DEPARTMENT OF PATHOLOGY, [address] [place] [address] Vinayak Yanez M.D. Director [facility] # [id number] Patient: PRICE GUARDADO [id number] (Continued) Specimen: [id number] Collected: 10/13/15-1639 Received: 10/13/15 (Continued) Procedure Result Reported Site Acid Fast Stain - Direct Final (continued) 10/14/15809 AFB Smear Result No Acid Fast Bacillus Present (Negative) Preparation By Direct Smear Due to limited sensitivity of the smear, results should be used as an adjunct in evaluating the patient's status and cultural examination is highly recommended for diagnosis. * - [facility] ([facility]) . END OF REPORT * ML=Testing performed at Main Lab DEPARTMENT OF PATHOLOGY, [address] [place] [address] Vinayak Yanez M.D. Director [facility] # [id number] 27 SEE RESULT BELOW Name: DEBBYPRCIE : [address]: Jessie Lazar MD Acct: [id number] Unit: [id number] AGE: 60 Location: [facility] Re10/13/15 SEX: M Status: REG SDC SPEC: [id number] GABO: 10/13/15-1640 [facility] [facility]ENTER DR: Jessie Lazar MD REQ: [id number] RECD: 10/13/15 STATUS: RES OTHR DR: Gabbie [...] performed at Main Lab DEPARTMENT OF PATHOLOGY, [address] [place] [address] Vinayak Yanez M.D. Director [facility] # [id number] 28 SEE RESULT BELOW Name: PRICE GUARDADO : [address]: Jessie Lazar MD Acct: [id number] Unit: [id number] AGE: 60 Location: [facility] 338- Re10/13/15 Dis: 10/19/15 SEX: M Status: DIS IN SPEC: [id number] GABO: 10/13/15-[address]: Jessie Lazar MD REQ: [id number] RECD: 10/13/15802 STATUS: RES OTHR DR: Gabbie Shell MD _ SOURCE: WOUND SPDESC:KNEE LEFT ORDERED: Tissue Cult/GS/R, Fungal - Other/R, Acid Fast Stain/U COMMENTS: CLOSTRIDIUM FINDINGS IN ADDITION TO S. AUREUS: Verbal to DR. SHELL by [id number] at 1411 on 10/15/15. Results read back [...] performed at Main Lab DEPARTMENT OF PATHOLOGY, [address] [place] [address] Vinayak Yanez M.D. Director [facility] # [id number] Patient: PRICE GUARDADO [id number] (Continued) Specimen: [id number] Collected: 10/13/15 Received: 10/13/15 (Continued) Procedure Result Reported Site Acid Fast Stain - Direct Final (continued) 10/14/15- 817 Due to limited sensitivity of the smear, results should be used as an adjunct in evaluating the patient's status and cultural examination is highly recommended for diagnosis. * ML - [facility] . END OF REPORT * ML=Testing performed at Main Lab DEPARTMENT OF PATHOLOGY, [address] [place] [address] Vinayak Yanez M.D. Director [facility] # [id number] 29 SEE RESULT BELOW Name: PRICE GUARDADO : [address]: Jessie Lazar MD Acct: [id number] Unit: [id number] AGE: 60 Location: [facility] 338-01 Re10/13/15 SEX: M Status: ADM IN SPEC: [id number] GABO: 10/13/15-[address]: Jessie Lazar MD REQ: [id number] RECD: 10/13/15 STATUS: RES OTHR DR: Gabbie Shell MD _ SOURCE: WOUND SPDESC:KNEE LEFT ORDERED: Anaerobic Cult/R, MRSA/SA SSTI/R, Culture Stain/R, Fungal - Other /R, Acid Fast Stain/U COMMENTS: Verbal to GEMINI AMY CHAWLA by [id number] at 2020 on 10/13/15. Results read back [...] performed at Main Lab DEPARTMENT OF PATHOLOGY, [address] [place] [address] Vinayak Yanez M.D. Director [facility] # [id number] Patient: PRICE GUARDADO [id number] (Continued) Specimen: [id number] Collected: 10/13/15 Received: 10/13/15 (Continued) Procedure Result Reported Site Acid Fast Stain - Direct Final (continued) 10/14/15809 Due to limited sensitivity of the smear, results should be used as an adjunct in evaluating the patient's status and cultural examination is highly recommended for diagnosis. * ML - [facility] ([facility]) . END OF REPORT * ML=Testing performed at Main Lab DEPARTMENT OF PATHOLOGY, [address] [place] [address] Vinayak Yanez M.D. Director [facility] # [id number] 30 SEE RESULT BELOW Name: PRICE GUARDADO : [address]: Jessie Lazar MD Acct: [id number] Unit: [id number] AGE: 60 Location: [facility] 338-01 Re10/13/15 Dis: 10/19/15 SEX: M Status: DIS IN SPEC: [id number] GABO: 10/13/15-1640 [facility] DR: Jessie Lazar MD REQ: [id number] RECD: 10/13/15831 STATUS: RES OTHR DR: Gabbie Shell MD _ SOURCE: WOUND SPDESC:KNEE LEFT ORDERED: Anaerobic Cult/R, MRSA/SA SSTI/R, Culture Stain/R, Fungal - Other /R, Acid Fast Stain/U COMMENTS: Verbal to GEMINI CHAWLA by [id number] at 2020 on 10/13/15. Results read back accurately. CLOSTRIDIUM FINDINGS IN ADDITION TO S. AUREUS: Verbal to DR. SHELL by [id number] at 1411 on 10/15/15. Results read back [...] performed at Main Lab DEPARTMENT OF PATHOLOGY, [address] [place] [address] Vinayak Yanez M.D. Director [facility] # [id number] Patient: PRICE GUARDADO [id number] (Continued) Specimen: [id number] Collected: 10/13/15 Received: 10/13/15 (Continued) Procedure Result [...] performed at Main Lab DEPARTMENT OF PATHOLOGY, [address] [place] [address] Vinayak Yanez M.D. Director [facility] # [id number] Patient: PRICE GUARDADO [id number] (Continued) Specimen: [id number] Collected: 10/13/15-1639 Received: 10/13/15175 (Continued) Procedure Result Reported Site Acid Fast Stain - Direct Final (continued) 10/14/15809 AFB Smear Result No Acid Fast Bacillus Present (Negative) Preparation By Direct Smear Due to limited sensitivity of the smear, results should be used as an adjunct in evaluating the patient's status and cultural examination is highly recommended for diagnosis. * ML - [facility]) . END OF REPORT * ML=Testing performed at Main Lab DEPARTMENT OF PATHOLOGY, [address] [place] [address] Vinayak Yanez M.D. Director [facility] # [id number] 31 SEE RESULT BELOW Name: PRICE GUARDADO : [address]: Jessie Lazar MD Acct: [id number] Unit: [id number] AGE: 60 Location: SDS Re10/13/15 SEX: M Status: REG SDC SPEC: [id number] GABO: 10/13/15-1640 [facility] DR: Jessie Lazar MD REQ: [id number] RECD: 10/13/15 STATUS: RES OTHR DR: Gabbie [...] Direct PENDING * ML - [facility] . END OF REPORT * ML=Testing performed at Main Lab DEPARTMENT OF PATHOLOGY, [address] [place] [address] Vinayak Yanez M.D. Director [facility] # [id number] 32 SEE RESULT BELOW Name: PRICE GUARDADO : [address]: Jessie Lazar MD Acct: [id number] Unit: [id number] AGE: 60 Location: [place] [address] Re10/13/15 Dis: 10/19/15 SEX: M Status: DIS IN SPEC: [id number] GABO: 10/13/15-1640 [facility] DR: Jessie Lazar MD REQ: [id number] RECD: 10/13/15373 STATUS: RES OTHR DR: Gabbie Shell MD _ SOURCE: WOUND SPDESC:KNEE LEFT ORDERED: Tissue Cult/GS/R, Fungal - Other/R, Acid Fast Stain/U COMMENTS: CLOSTRIDIUM FINDINGS IN ADDITION TO S. AUREUS: Verbal to DR. SHELL by [id number] at 1411 on 10/15/15. Results read back [...] performed at Main Lab DEPARTMENT OF PATHOLOGY, [address] [place] [address] Vinayak Yanez M.D. Director [facility] # [id number] Patient: PRICE GUARDADO [id number] (Continued) Specimen: [id number] Collected: 10/13/15 Received: 10/13/15 (Continued) Procedure Result Reported Site Acid Fast Stain - Direct Final (continued) 10/14/15817 Due to limited sensitivity of the smear, results should be used as an adjunct in evaluating the patient's status and cultural examination is highly recommended for diagnosis. * ML - MAIN LAB ([facility]) . END OF REPORT * ML=Testing performed at Main Lab DEPARTMENT OF PATHOLOGY, [address] [place] [address] Vinayak Yanez M.D. Director [facility] # [id number] 33 SEE RESULT BELOW Name: DEBBYPRICE : [address]: Jessei Lazar MD Acct: [id number] Unit: [id number] AGE: 60 Location: [place] [address] Re10/13/15 SEX: M Status: ADM IN SPEC: [id number] GABO: 10/13/15-1640 [facility] DR: Jessie Lazar MD REQ: [id number] RECD: 10/13/15 STATUS: RES OTHR DR: Gabbie Shell MD _ SOURCE: WOUND SPDESC:KNEE LEFT ORDERED: Anaerobic Cult/R, MRSA/SA SSTI/R, Culture Stain/R, Fungal - Other /R, Acid Fast Stain/U COMMENTS: Verbal to GEMINI CHAWLA by [id number] at 2020 on 10/13/15. Results read back [...] performed at Main Lab DEPARTMENT OF PATHOLOGY, [address] [place] [address] Vinayak Yanez M.D. Director [facility] # [id number] Patient: PRICE GUARDADO [id number] (Continued) Specimen: [id number] Collected: 10/13/15-1639 Received: 10/13/15 (Continued) Procedure Result Reported Site Acid Fast Stain - Direct Final (continued) 10/14/15809 Due to limited sensitivity of the smear, results should be used as an adjunct in evaluating the patient's status and cultural examination is highly recommended for diagnosis. * ML - MAIN LAB ([facility]) . END OF REPORT * ML=Testing performed at Main Lab DEPARTMENT OF PATHOLOGY, [address] [place] [address] Vinayak Yanez M.D. Director [facility] # [id number] 34 SEE RESULT BELOW Name: PRICE GUARDADO : [address]: Jessie Lazar MD Acct: [id number] Unit: [id number] AGE: 60 Location: [place] [address] Re10/13/15 Dis: 10/19/15 SEX: M Status: DIS IN SPEC: [id number] GABO: 10/13/15-1640 [facility] DR: Jessie Lazar MD REQ: [id number] RECD: 10/13/15 STATUS: RES OTHR DR: Gabbie Shell MD _ SOURCE: WOUND SPDESC:KNEE LEFT ORDERED: Anaerobic Cult/R, MRSA/SA SSTI/R, Culture Stain/R, Fungal - Other /R, Acid Fast Stain/U COMMENTS: Verbal to GEMINI CHAWLA by [id number] at 2020 on 10/13/15. Results read back accurately. CLOSTRIDIUM FINDINGS IN ADDITION TO S. AUREUS: Verbal to DR. SHELL by [id number] at 1411 on 10/15/15. Results read back [...] performed at Main Lab DEPARTMENT OF PATHOLOGY, [address] [place] [address] Vinayak Yanez M.D. Director [facility] # [id number] Patient: PRICE GUARDADO [id number] (Continued) Specimen: [id number] Collected: 10/13/15 Received: 10/13/15 (Continued) Procedure Result [...] performed at Main Lab DEPARTMENT OF PATHOLOGY, [address] [place] [address] Vinayak Yanez M.D. Director [facility] # [id number] Patient: PRICE GUARDADO [id number] (Continued) Specimen: [id number] Collected: 10/13/15 Received: 10/13/15 (Continued) Procedure Result [...] performed at Main Lab DEPARTMENT OF PATHOLOGY, [address] [place] [address] Vinayak Yanez M.D. Director [facility] # [id number] 35 SEE RESULT BELOW Name: PRICE GUARDADO : [address]: Jessie Lazar MD Acct: [id number] Unit: [id number] AGE: 60 Location: [facility] Re10/13/15 SEX: M Status: REG SDC SPEC: [id number] GABO: 10/13/15-1640 [facility] DR: Jessie Lazar MD REQ: [id number] RECD: 10/13/15226 STATUS: RES [facility] DR: Gabbie Shell MD _ SOURCE: [...] Direct PENDING * ML - [facility] . END OF REPORT * ML=Testing performed at Main Lab DEPARTMENT OF PATHOLOGY, [address] [place] [address] Vinayak Yanez M.D. Director [facility] # [id number] 36 SEE RESULT BELOW Name: PRICE GUARDADO : [address]: Jessie Lazar MD Acct: [id number] Unit: [id number] AGE: 60 Location: [facility] 338- Re10/13/15 Dis: 10/19/15 SEX: M Status: DIS IN SPEC: [id number] GABO: 10/13/15-1640 [facility] DR: Jessie Lazar MD REQ: [id number] RECD: 10/13/15 STATUS: COMP HR DR: Gabbie Shell MD _ SOURCE: WOUND SPDESC:KNEE LEFT ORDERED: Tissue Cult/GS/R, Fungal - Other/R, Acid Fast Stain/U COMMENTS: CLOSTRIDIUM FINDINGS IN ADDITION TO S. AUREUS: Verbal to DR. SHELL by [id number] at 1411 on 10/15/15. Results read back [...] [facility] DEPARTMENT OF PATHOLOGY, [address] [place] [address] Vinayak Yanez M.D. Director [facility] # [id number] Patient: PRICE GUARDADO [id number] (Continued) Specimen: [id number] Collected: 10/13/15-1639 Received: 10/13/15-175 (Continued) Procedure Result Reported Site Acid Fast Stain - Direct Final (continued) 10/14/15817 Due to limited sensitivity of the smear, results should be used as an adjunct in evaluating the patient's status and cultural examination is highly recommended for diagnosis. * ML - MAIN LAB ([facility]) . END OF REPORT * ML=Testing performed at Main Lab DEPARTMENT OF PATHOLOGY, [address] [place] [address] Vinayak Yanez M.D. Director [facility] # [id number] 37 SEE RESULT BELOW Name: PRICE GUARDADO : [address]: Jessie Lazar MD Acct: [id number] Unit: [id number] AGE: 60 Location: [place] [address] Re10/13/15 SEX: M Status: ADM IN SPEC: [id number] GABO: 10/13/15-1640 [facility] DR: Jessie Lazar MD REQ: [id number] RECD: 10/13/15 STATUS: RES OTHR DR: Gabbie Shell MD _ SOURCE: WOUND SPDESC:KNEE LEFT ORDERED: Anaerobic Cult/R, MRSA/SA SSTI/R, Culture Stain/R, Fungal - Other /R, Acid Fast Stain/U COMMENTS: Verbal to GEMINI CHAWLA by [id number] at 2020 on 10/13/15. Results read back [...] performed at Main Lab DEPARTMENT OF PATHOLOGY, [address] [place] [address] Vinayak Yanez M.D. Director [facility] # [id number] Patient: SHOPRICE HOLLY [id number] (Continued) Specimen: [id number] Collected: 10/13/15 Received: 10/13/15-175 (Continued) Procedure Result Reported Site Acid Fast Stain - Direct Final (continued) 10/14/15- 809 Due to limited sensitivity of the smear, results should be used as an adjunct in evaluating the patient's status and cultural examination is highly recommended for diagnosis. * ML - [facility] . END OF REPORT * ML=Testing performed at Main Lab DEPARTMENT OF PATHOLOGY, [address] [place] [address] Vinayak Ynaez M.D. Director [facility] # [id number] 38 SEE RESULT BELOW Name: PRICE GUARDADO : [address]: Jessie Lazar MD Acct: [id number] Unit: [id number] AGE: 60 Location: [facility] 338-01 Re10/13/15 Dis: 10/19/15 SEX: M Status: DIS IN SPEC: [id number] GABO: 10/13/15-[address]: Jessie Lazar MD REQ: [id number] RECD: 10/13/15 STATUS: COMP HR DR: Gabbie Shell MD _ SOURCE: WOUND SPDESC:KNEE LEFT ORDERED: Anaerobic Cult/R, MRSA/SA SSTI/R, Culture Stain/R, Fungal - Other /R, Acid Fast Stain/U COMMENTS: Verbal to GEMINI AMY CHAWLA by [id number] at 2020 on 10/13/15. Results read back accurately. CLOSTRIDIUM FINDINGS IN ADDITION TO S. AUREUS: Verbal to DR. SHELL by [id number] at 1411 on 10/15/15. Results read back [...] performed at Main Lab DEPARTMENT OF PATHOLOGY, [address] [place] [address] Vinayak Yanez M.D. Director [facility] # [id number] Patient: DEBBYBARIPRICE Arcenio [id number] (Continued) Specimen: [id number] Collected: 10/13/15 Received: 10/13/15 (Continued) Procedure Result Reported Site Wound/Misc Culture Final (continued) 10/15/15 3709 Organism 1 STAPHYLOCOCCUS AUREUS Quantity 3+ 1. [...] performed at Main Lab DEPARTMENT OF PATHOLOGY, [address] [place] [address] Vinayak Yanez M.D. Director [facility] # [id number] Patient: PRICE GUARDADO [id number] (Continued) Specimen: [id number] Collected: 10/13/151640 Received: 10/13/15-1754 (Continued) Procedure Result Reported Site Acid Fast Stain - Direct Final (continued) 10/14/15809 AFB Smear Result No Acid Fast Bacillus Present (Negative) Preparation By Direct Smear Due to limited sensitivity of the smear, results should be used as an adjunct in evaluating the patient's status and cultural examination is highly recommended for diagnosis. * ML - MAIN LAB ([facility]) . END OF REPORT * ML=Testing performed at Main Lab DEPARTMENT OF PATHOLOGY, [address] [place] [address] Vinayak Yanez M.D. Director [facility] # [id number] 39 SOURCE: KNEE, KNEE WOUND SWAB MYCOBACTERIAL CULTURE FINAL No growth after 60 days of incubation. Test Performed by: [address] [address] Stone Engraver: Cam Isidro II, M.D., Ph.D. Procedures Date Code Description Status 10/09/2018 75051 Amputation,Toe;Interphalangeal Joint Completed 10/09/2018 14870 Amputation,Toe;Interphalangeal Joint Completed 10/09/2018 26851 Amputation,Toe;Interphalangeal Joint Completed 09/22/2018 75925 EEG Recording Awake & Drowsy Completed 05/29/2018 61097 Incision Bone Cortex Foot Completed 05/29/2018 90547 Layer Closure Of Wounds 2.6CM - 7.5CM Completed Neck,Hands,Feet,Genitalia 05/29/2018 59261 Layer Closure Of Wounds 2.6CM - 7.5CM Completed Neck,Hands,Feet,Genitalia 05/29/2018 79485 Debridement Tissue/Muscle/Bone Completed 05/27/2018 95476 EKG, Interpretation Only Completed 04/24/2018 05463 Amputation,Toe;Interphalangeal Joint Completed 04/24/2018 60029 Amputation,Toe;Interphalangeal Joint Completed 04/24/2018 30369 Amputation,Toe;Interphalangeal Joint Completed 04/24/2018 02218 Amputation,Toe;Interphalangeal Joint Completed 04/24/2018 18239 Amputation,Toe;Interphalangeal Joint Completed 04/18/2018 44792 Revascularization,Endovascular W/Atherectomy, Inc Completed Angioplasty 04/18/2018 71365 Revascularization,Endovascular W/Atherectomy, Inc Completed Angioplasty 04/18/2018 13008 Angio Extremity, Bilateral Completed 04/18/2018 58682 Ultrasound Guidance For Vascular Access Completed 04/18/2018 59450 Moderate Sedation Services; Same Phys Intl 15 Mins; PT Completed >=5 Years 04/18/2018 29328 Moderate Sedation Services; Same Phys Each Additional Completed 15 Mins 12/10/2016 08731 ECHO Transthorasic Realtime 2D W Doppler & Color Flow Completed Hosp 12/09/2016 91721 EKG, Interpretation Only Completed 01/10/2016 87028 Treadmill Interp/Report Only Completed 01/10/2016 65797 Stress Test Supervsn W/Out I/R Completed 10/15/2015 79594 Arthroscopy,Knee For Infection,Lavage & Drainage Completed 10/15/2015 75437 Arthroscopy,Knee For Infection,Lavage & Drainage Completed 10/15/2015 70161 Arthroscopy,Knee For Infection,Lavage & Drainage Completed 10/15/2015 22587 Arthroscopy,Knee For Infection,Lavage & Drainage Completed 10/13/2015 30378 Arthroscopy,Knee,Meniscectomy Medial Or Lateral Completed 10/13/2015 97092 Arthroscopy,Knee,Meniscectomy Medial Or Lateral Completed 10/13/2015 52368 Arthroscopy,Knee For Infection,Lavage & Drainage Completed 05/18/2013 08957 EEG Recording Awake & Asleep Completed 03/13/2013 64203 Color Flow Doppler/Interp & Reprt Completed 03/13/2013 85999 Pulse Wave/Continuous-Interp.RPT Completed 03/13/2013 27062 Echocardiography, Transesophageal, Real Time W/Image 2D Completed W/W/O M-M 11/11/2012 25020139 Colonoscopy Completed Encounters Type Date Location Provider Dx Diagnosis Office Visit 10/13/2018 [facility] Z98.890 Other specified 10:11a Assoc,trevor Lawrence NP postprocedural Hospitalists states M86.9 Osteomyelitis, unspecified K52.9 Noninfective gastroenteritis and colitis, unspecified E11.9 Type 2 diabetes mellitus without complications Z86.73 Prsnl hx of TIA (TIA), and cereb infrc w/o resid deficits G25.0 Essential tremor I73.9 Peripheral vascular disease, unspecified Office Visit 10/12/2018 [facility] Z98.890 Other specified 10:11a Assoctrevor NP postprocedural Hospitalists states M86.9 Osteomyelitis, unspecified R19.7 Diarrhea, unspecified E11.9 Type 2 diabetes mellitus without complications Z86.73 Prsnl hx of TIA (TIA), and cereb infrc w/o resid deficits G25.0 Essential tremor I73.9 Peripheral vascular disease, unspecified Office Visit 10/11/2018 [facility] Z98.890 Other specified 10:10a Assoc,SAIDA Morgan postprocedural Hospitalists states M86.9 Osteomyelitis, unspecified I73.9 Peripheral vascular disease, unspecified K52.9 Noninfective gastroenteritis and colitis, unspecified F32.9 Major depressive disorder, single episode, unspecified E11.9 Type 2 diabetes mellitus without complications Z86.73 Prsnl hx of TIA (TIA), and cereb infrc w/o resid deficits G25.0 Essential tremor Office Visit 10/10/2018 12:10p [facility] Madalyn Jordan E11.52 Type 2 diabetes Infectious Gabrielle Pérez w diabetic Diseases peripheral angiopathy w gangrene E11.69 Type 2 diabetes mellitus with other specified complication M86.172 Other acute osteomyelitis, left ankle and foot E11.40 Type 2 diabetes mellitus with diabetic neuropathy, unsp Office Visit 10/10/2018 [facility] Acm Z98.890 Other specified 10:10a Assoc,SAIDA Morgan postprocedural Hospitalists states M86.9 Osteomyelitis, unspecified I73.9 Peripheral vascular disease, unspecified K52.9 Noninfective gastroenteritis and colitis, unspecified F32.9 Major depressive disorder, single episode, unspecified E11.9 Type 2 diabetes mellitus without complications Z86.73 Prsnl hx of TIA (TIA), and cereb infrc w/o resid deficits G25.0 Essential tremor Office Visit 10/09/2018 10:10a [facility] Cam Z47.81 Encounter for Assoc,SAIDA Morgan orthopedic Hospitalists aftercare following surgical amp M86.172 Other acute osteomyelitis, left ankle and foot E11.9 Type 2 diabetes mellitus without complications I73.9 Peripheral vascular disease, unspecified I25.10 Athscl heart disease of [place] coronary artery w/o ang pctrs K31.84 Gastroparesis R19.7 Diarrhea, unspecified F32.9 Major depressive disorder, single episode, unspecified I10 Essential (primary) hypertension Office Visit 10/07/2018 Orthopedic Jose Juan Fernando, M86.172 Other acute 11:15a Services Of osteomyelitis, left C.M.A. ankle and foot E11.621 Type 2 diabetes mellitus with foot ulcer L97.529 Non-pressure chronic ulcer oth prt left foot w unsp severity Office Visit 10/06/2018 2:15p 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 and signs Hospitalists involving the nervous system E11.9 Type 2 diabetes mellitus without complications I10 Essential (primary) hypertension Office Visit 09/21/2018 [facility] [place] R25.1 Tremor, 7:00a Clinic MD Lucio unspecified R47.81 Slurred speech R29.810 Facial weakness Z86.73 Prsnl hx of TIA (TIA), and cereb infrc w/o resid deficits Office Visit 09/21/2018 [facility] Carmen R41.82 Altered mental 11:16a Assoc,trevor Lawrence, MARJORIE status, Hospitalists unspecified E11.9 Type 2 diabetes mellitus without complications F32.9 Major depressive disorder, single episode, unspecified I10 Essential (primary) hypertension Office Visit 09/12/2018 Orthopedic Jose Juan Fernando, L97.529 Non-pressure 11:00a Services Of chronic ulcer otbobby Millard 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 Office Visit 09/09/2018 9:54a [facility] Alpa [place], J18.9 Pneumonia, Assoc,pc [employer]IC MANUFACTURING SUPERVISOR unspecified Hospitalists organism K31.84 Gastroparesis A41.9 Sepsis, unspecified organism L02.211 Cutaneous abscess of abdominal wall N17.9 Acute kidney failure, unspecified E11.9 Type 2 diabetes mellitus without complications I73.9 Peripheral vascular disease, unspecified F32.9 Major depressive disorder, single episode, unspecified Office Visit 09/07/2018 [facility] Tiffanie J18.9 Pneumonia, 9:54a Assoc,trevor Hope HYDROCHLORIC MANUFACTURING SUPERVISOR unspecified Hospitalists organism R11.2 Nausea with vomiting, unspecified R10.11 Right upper quadrant pain L02.211 Cutaneous abscess of abdominal wall N17.9 Acute kidney failure, unspecified E11.9 Type 2 diabetes mellitus without complications I10 Essential (primary) hypertension F32.9 Major depressive disorder, single episode, unspecified Z86.79 Personal history of other diseases of the circulatory system Office Visit 07/25/2018 4:25p Braxton Bautista I70.212 Ath[facility]cl [place] [facility] M.D. arteries of extrm w intrmt romelia, left leg Office Visit 07/23/2018 12:30p Braxton Bautista I70.222 Athsc [place] [facility] M.D. arteries of extremities w rest pain, left leg Office Visit 06/16/2018 1[facility] T87.44 Infection of Infectious [place], amputation stump, Diseases M.D. 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 Office Visit 06/03/2018 [facility] T81.31xD Disruption of 2:51p Assoc, Suzie Bradley, external Hospitalists [employer] operation (surgical) wound, NEC, subs F32.9 Major depressive disorder, single episode, unspecified N17.9 Acute kidney failure, unspecified E11.9 Type 2 diabetes mellitus without complications I73.9 Peripheral vascular disease, unspecified Office Visit 06/02/2018 [facility] T81.31xD Disruption of 2:50p Assoc, Suzie Bradley, external Hospitalists [employer] operation (surgical) wound, NEC, subs F32.9 Major depressive disorder, single episode, unspecified N17.9 Acute kidney failure, unspecified E11.9 Type 2 diabetes mellitus without complications I73.9 Peripheral vascular disease, unspecified Office Visit 06/01/2018 [facility] T81.31xD Disruption of 2:50p Assoc, Suzie Dotmartita, external Hospitalists [employer] operation (surgical) wound, NEC, subs F32.9 Major depressive disorder, single episode, unspecified N17.9 Acute kidney failure, unspecified E11.9 Type 2 diabetes mellitus without complications I73.9 Peripheral vascular disease, unspecified Office Visit 05/31/2018 [facility] T81.31xA Disruption of 2:50p Assoc, Suzie Dotmartita, external Hospitalists [employer] operation (surgical) wound, NEC, init F32.9 Major depressive disorder, single episode, unspecified N17.9 Acute kidney failure, unspecified E11.9 Type 2 diabetes mellitus without complications I73.9 Peripheral vascular disease, unspecified Office Visit 05/30/2018 [facility] T81.31xD Disruption of 2:49p trevor Jackson, [employer] external Hospitalists operation (surgical) wound, NEC, subs I73.9 Peripheral vascular disease, unspecified E11.9 Type 2 diabetes mellitus without complications Office Visit 05/29/2018 [facility] T81.31xD Disruption of 2:49p trevor Jackson, [employer] external Hospitalists operation (surgical) wound, NEC, subs N17.9 Acute kidney failure, unspecified I73.9 Peripheral vascular disease, unspecified E11.9 Type 2 diabetes mellitus without complications Office Visit 05/28/2018 12:39p [facility] Madalyn Jordan T87.81 Dehiscence of Infectious Gabrielle Pérez amputation stump Diseases T87.44 Infection of amputation stump, left lower extremity Z89.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 I73.9 Peripheral vascular disease, unspecified Z71.6 Tobacco abuse counseling Office Visit 05/08/2018 1:40p [facility] Madalyn Jordan Z89.412 Acquired Infectious Gabrielle Pérez absence of Diseases left great toe 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 Office Visit 04/22/2018 [facility] Jose Juan King, M86.172 Other acute 1:30p Services Of [place] leon, left [place] ankle and foot Office Visit 04/19/2018 [facility] Sami Nicholson MD L97.513 Non-prs chronic 11:31a Assoc,pc ulcer oth prt right Hospitalists foot w necros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
--- OUTSIDE RECORDS SUMMARY | 2018-11-03 15:07 | XMS REPORT | Continuity of Care Document ---
:1955 External Reference #:[id number] Author Name Kelly Neumann Care Team Providers Name Role Phone Gabbie Shell MD Primary Care Physician Unavailable Payers Type Date Identification Numbers Payment Provider Subscriber Effective: Policy Number: [id number] [employer] Maryam Guardado 2010 PayID: [id number] [address] [place] [address] Effective: 2018 Policy Number: [id number] Medicare Price Guardado PayID: [id number] [address] [place] [address] Expires: 2018 Policy Number: [id number] Medicare Price Guardado PayID: [id number] [address] [place] [address] Expires: 2018 Policy Number: [id number] Medicare Price Guardado PayID: [id number] [address] [place] [address] Expires: 2018 Policy Number: [id number] [employer] Maryam Waterman Debby Group Number: [id number] [address] PayID: [id number] [place] [address] Onset: 2015 Policy Number: [id number] Jorden Price Rg Debby Group Number: [id number] [address] PayID: [id number] MAMADOU Pr[place] [id number] Advance Directives Description No Information Available Problems [...] Former Cigarette Smoker Unknown Smoking Status Reviewed: 10/21/18 Former Cigarette Smoker ETOH Use Denies alcohol use Tobacco Use Start: Unknown End: Patient is a former quit March 2018 - Unknown smoker former 1 ppd x 45 yrs Recreational Drug Use Denies Drug Use Exercise Type/Frequency Exercises sporadically Allergies, Adverse Reactions, Alerts Description No Known Drug Allergies Medications Medication Date Status Form Strength Qnty SIG Indications Ordering Provider Oxycodone HCL 10/09/ Active Tablets 5mg 10tabs 1 tabs by [facility] 2019 mouth Fernando, every 6 MD hours as needed Metformin HCL / Active Tablets 1000mg 180tab 1 po bid Unknown 0000 s Zoloft / Active 100mg 2 po daily Unknown 0000 Lamictal / Active Tablets 200mg 1 by mouth Unknown 0000 twice daily Glipizide / Active Tablets 10mg 1 by mouth Unknown 0000 once a day Humalog 00/ Active pump Unknown 0000 Amlodipine / Active [...] 50mg Take as Unknown Citrate 0000 Directed Cipro / Active Tablets 500mg 1 by mouth Unknown 0000 twice a day x 28 days ([facility] DC) Vancomycin HCL / Active Solution 1gm iv every Unknown 0000 Rec 24 hours x 28 days through [facility] ([facility]) Lamotrigine ER 08/01/ Hx Tablets 200 mg Jamar 2018 - daily D. 07/31/ Ricky 2018 M.D. Metronidazole 06/10/ Hx Tablets 500mg 42tabs 1 tab by Jamar 2017 - mouth D. 05/23/ three Ricky 2017 times per M.D. day Keflex 05/05/ Hx Capsules 250mg 30caps Take 1 Jose Juan 2017 - capsule Fernando 06/09/ qid 2017 Clindamycin HCL 05/02/ Hx Capsules 300mg 30caps Take 1 Jose Juan 2017 - Capsule By Fernando, 05/07/ Mouth 2017 Three Times Daily Oxycodone HCL 04/24/ Hx Tablets 5mg 15tabs 1 tab Jose Juan 2017 - every 4-6 Fernando, 07/06/ hours as 2017 needed for pain mdd 4 Clindamycin HCL 11/01/ Hx Capsules 300mg 90caps 1 tabs by Jamar 2015 - mouth 3 D. 01/03/ times a Ricky, 2015 day M.D. Lamictal [...] 0000 - 24HR every day 2017 Lamictal // Hx (?) 1 po daily Unknown 0000 [...] Tablet By Mouth 2017 Three Times Daily Glucotrol XL / Hx Tablets ER 10mg Unknown 0000 - 24HR 2017 Cefepime HCL / Hx Solution 1gm grams Unknown 0000 - Rec every 12 06/30/ hours 2018 through [facility] Vancomycin HCL / Hx Solution 1000mg iv every Unknown 0000 - Rec 24 hours through 2017 [facility] Docusate / Hx Capsules 100mg 1 tab by Unknown 0000 - mouth 2-3 09/30/ times a 2018 day as needed Doxycycline / Hx Capsules 100mg one tablet Unknown Hyclate 0000 - twice 10/13/ daily 2019 Immunizations Description No Information Available Vital Signs Date Vital Result Comment 10/21/2018 2:23pm Height 67 inches 5'7" Heart [...] H/L Range Note CBC Auto Diff 10/20/2018 [facility] White Blood 9.2 10^3/uL N 3.5-10.[address] [place] [address] [phone] Red Blood Count 3.98 10^6/uL Low 4.00-5.40 [...] Cells % 0 Comp Metabolic Panel 10/20/2018 [facility] Sodium 136 mmol/L N 135-[address] [place] [address] [phone] Potassium 4.8 mmol/L N 3.5-5.0 Chloride 103 [...] Egfr 50.6 >60 1 Laboratory test 10/20/2018 [facility] Vancomycin Trough 12.0 g /mL finding [address] [place] [address] [phone] C Reactive Protein 6.29 mg/L N <8.01 Laboratory test 10/09/2018 [facility] Point of Care 115 mg/dL High 70-100 [address] [place] [address] [phone] Laboratory test 10/09/2018 [facility] Point of Care 312 mg/dL High 70-100 [address] [place] [address] [phone] Comp Metabolic 06/23/2018 [facility] Sodium 137 mmol/L N 135- [address] [place] [address] [phone] Potassium 4.9 mmol/L N 3.5-5.0 Chloride 107 [...] Egfr 51.8 >60 4 Laboratory test 06/23/2018 [facility] Vancomycin Trough 17.8 g /mL finding [address] [place] [address] [phone] C Reactive Protein 4.23 mg/L N <8.01 Comp Metabolic Panel 06/17/2018 [facility] Sodium 133 mmol/L Low 135-[address] [place] [address] [phone] Chloride 100 mmol/L Low 101-111 Co2 Carbon [...] mg/dL High 70-100 6 Laboratory test 06/17/2018 [facility] Vancomycin Trough 21.6 g /mL finding [address] [place] [address] [phone] C Reactive Protein 6.85 mg/L N <8.01 Laboratory test 06/13/2018 [facility] C Difficile PCR SEE RESULT [address] [place] [address] [phone] CBC Auto Diff 06/11/2018 [facility] White Blood 6.9 10^3/uL N 3.5-[address] Count .8 [place] [address] [phone] Red Blood Count 3.88 10^6/uL Low 4.00-5.40 [...] Cells % 0.1 Comp Metabolic Panel 06/11/2018 [facility] Sodium 137 mmol/L N 135-[address] [place] [address] [phone] Potassium 4.4 mmol/L N 3.5-5.0 Chloride 102 [...] Egfr 53.3 >60 8 Laboratory test 06/11/2018 [facility] Vancomycin Trough 24.8 g /mL finding [address] [place] [address] [phone] C Reactive Protein 4.81 mg/L N <8.01 Laboratory test 04/24/2018 [facility] Point of Care 331 mg/dL High 70-100 [address] [place] [address] [phone] Laboratory test 04/24/2018 [facility] Surgical SEE RESULT [address] [place] [address] [phone] Laboratory test 04/24/2018 [facility] Point of Care 234 mg/dL High 70-100 [address] [place] [address] [phone] Laboratory test 04/24/2018 [facility] Point of Care 281 mg/dL High 70-100 [address] [place] [address] [phone] Laboratory test 04/24/2018 [facility] Point of Care 232 mg/dL High 70-100 [address] [place] [address] [phone] Laboratory test 11/14/2015 [facility] Erythrocyte Sed 66 mm/Hr High 0-[address] [place] [address] [phone] Comp Metabolic 11/14/2015 [facility] Sodium 135 mmol/L N 133- [address] [place] [address] [phone] Potassium 5.0 mmol/L N 3.5-5.0 Chloride 101 [...] 112.9 N >60 14 Laboratory test 11/14/2015 [facility] C Reactive 2.79 mg/L N < 5.00 [address] [place] [address] [phone] CBC Auto Diff 11/14/2015 [facility] White Blood 8.0 N 3.5- 10.[address] Count 10^3/[place] [address] [phone] Red Blood Count 4.22 10^6/uL N 4.0-5.4 [...] % 0.1 N Comp Metabolic Panel 11/08/2015 [facility] Sodium 135 mmol/L N 133-[address] [place] [address] [phone] Potassium 5.1 mmol/L High 3.5-5.0 Chloride 101 [...] 105.9 N >60 16 Laboratory test 11/08/2015 [facility] Erythrocyte Sed 77 mm/Hr High 0-[address] [place] [address] [phone] CBC Auto Diff 11/08/2015 [facility] White Blood 7.3 N 3.5- 10.[address] Count 10^3/[place] [address] [phone] Red Blood Count 4.45 10^6/uL N 4.0-5.4 [...] Cells % 0.6 N Laboratory test 11/08/2015 [facility] C Reactive 4.89 mg/L N < 5.[address] [place] [address] [phone] Comp Metabolic 10/31/2015 [facility] Sodium 134 mmol/L N 133- [address] [place] [address] [phone] Potassium 4.3 mmol/L N 3.5-5.0 Chloride 100 [...] 102.1 N >60 18 Laboratory test 10/31/2015 [facility] C Reactive 9.73 mg/L High < 5.[address] [place] [address] [phone] CBC Auto Diff 10/31/2015 [facility] White Blood 9.1 N 3.5- 10.[address] Count 10^3/[place] [address] [phone] Red Blood Count 4.36 10^6/uL N 4.0-5.4 [...] Cells % 0.1 N Laboratory test 10/31/2015 [facility] Erythrocyte Sed 95 mm/Hr High 0-[address] [place] [address] [phone] CBC Auto Diff 10/24/2015 [facility] White Blood 10.3 N 3.5- 10.[address] Count 10^3/[place] [address] [phone] Red Blood Count 4.23 10^6/uL N 4.0-5.4 [...] % 0 N Comp Metabolic Panel 10/24/2015 [facility] Sodium 136 mmol/L N 133-[address] [place] [address] [phone] Potassium 4.9 mmol/L N 3.5-5.0 Chloride 102 [...] 92.0 N >60 20 Laboratory test 10/24/2015 [facility] C Reactive 15.74 mg/L High < 5.00 [address] [place] [address] [phone] Laboratory test 10/13/2015 [facility] Point of Care 150 mg/dL High 74-106 [address] [place] [address] [phone] Laboratory test 10/13/2015 [facility] Wound SEE RESULT [address] Culture/[place] [address] [phone] Tissue (BX) Culture & Gram St SEE RESULT BELOW 24 MRSA/S. aureus Ssti PCR SEE RESULT BELOW 25 Anaerobic Culture SEE RESULT BELOW 26 Laboratory test 10/13/2015 [facility] Wound Culture/Sensi SEE RESULT [address] [place] [address] [phone] Tissue (BX) Culture & Gram St SEE RESULT BELOW 28 MRSA/S. aureus Ssti PCR SEE RESULT BELOW 29 Anaerobic Culture SEE RESULT BELOW 30 Laboratory test 10/13/2015 [facility] Wound Culture/Sensi SEE RESULT [address] [place] [address] [phone] Tissue (BX) Culture & Gram St SEE RESULT BELOW 32 MRSA/S. aureus Ssti PCR SEE RESULT BELOW 33 Anaerobic Culture SEE RESULT BELOW 34 Laboratory test 10/13/2015 [facility] Wound Culture/Sensi SEE RESULT [address] [place], [place] [address] [phone] Tissue (BX) Culture & Gram St SEE RESULT BELOW 36 MRSA/S. aureus Ssti PCR SEE RESULT BELOW 37 Anaerobic Culture SEE RESULT BELOW 38 Laboratory test 10/13/2015 [facility] Mycobacterial See Comment N [address] [place] [address] [phone] 1 Because ethnic data is not always [...] 5 Kidney failure <15 (or dialysis) 2 Mold Technician: [id number] 3 Mold Technician: [id number] 4 Because ethnic data is not always [...] Result [id number] Called to GONSALO at: 13:25:55 by:[id number] Read back by: GONSALO 7 SEE RESULT BELOW Name: PRICE GUARDADO : [address]: Jamar Pérez MD Acct: [id number] Unit: [id number] AGE: 62 Location: [facility] Re06/13/18 SEX: M Status: REG REF SPEC: [id number] GABO: 06/13/18-999 [facility] DR: Jamar Pérez MD REQ: [id number] RECD: 06/13/18 STATUS: COMP _ SOURCE: STOOL SPDESC: ORDERED: C. diff PCR Procedure Result Reported Site Stool Specimen Description Final 06/13/18- 1609 ML Stool Color Brown Stool Form Formed Stool Consistency Hard C. difficile PCR Final 06/13/18- 1609 ML Test not performed * ML - Main Lab . END OF REPORT DEPARTMENT OF PATHOLOGY, [address] [place] [address] Vinayak Yanez M.D. Director [facility] # [id number] 8 Because ethnic data is not always [...] 5 Kidney failure <15 (or dialysis) 9 Mold Technician: [id number] 10 SEE RESULT BELOW Name: DEBBYPRICE : [address]: Jose Juan King MD Acct: [id number] Unit: [id number] AGE: 62 Location: [place] Re04/24/18 SEX: M Status: WINIFRED SMITH SPEC: [id number] GABO: 04/24/18- SUBM DR: Jose Juan King MD REQ: [id number] RECD: 04/24/180 STATUS: SOUT _ ORDERED: Decal, [...] margin blue and plantar margin black, and novelties sales representative sections are submitted in cassettes A and B to include bone following decalcification in cassette A. Signed by and Reported on: Abby Ellis MD 04/29/18 1052 END OF REPORT DEPARTMENT OF PATHOLOGY, [address] [place] [address] Vinayak Yanez M.D. Director [facility] # [id number] 11 Mold Technician: [id number] 12 Mold Technician: [id number] 13 Mold Technician: [id number] 14 Because ethnic data is not always [...] (or dialysis) 21 Acute inflammation: >10.00 22 Mold Technician: [id number] FERNANDO PETTIT 23 SEE RESULT BELOW Name: PRICE GUARDADO : [address]: Jessie Lazar MD Acct: [id number] Unit: [id number] AGE: 60 Location: [facility] Re10/13/15 SEX: M Status: REG SDC SPEC: [id number] GABO: 10/13/15-1640 [facility] DR: Jessie Lazar MD REQ: [id number] RECD: 10/13/15 STATUS: RES OT DR: Gabbie Shell MD [...] at Main Lab DEPARTMENT OF PATHOLOGY, [address] [place] [address] Vinayak Yanez M.D. Director [facility] # [id number] 24 SEE RESULT BELOW Name: PRICE GUARDADO : [address]: Jessie Lazar MD Acct: [id number] Unit: [id number] AGE: 60 Location: [facility] 338- Re10/13/15 Dis: 10/19/15 SEX: M Status: DIS IN SPEC: [id number] GABO: 10/13/15-1640 [facility] DR: Jessie Lazar MD REQ: [id number] RECD: 10/13/15 STATUS: RES OTHR DR: Gabbie Shell MD _ SOURCE: WOUND SPDESC:KNEE LEFT ORDERED: Tissue Cult/GS/R, Fungal - Other/R, Acid Fast Stain/U COMMENTS: CLOSTRIDIUM FINDINGS IN ADDITION TO S. AUREUS: Verbal to DR. SHELL by [id number] at 1411 on 10/15/15. Results read back [...] at Main Lab DEPARTMENT OF PATHOLOGY, [address] [place] [address] Vinayak Yanez M.D. Director [facility] # [id number] Patient: PRICE GUARDADO [id number] (Continued) Specimen: [id number] Collected: 10/13/15-1639 Received: 10/13/15-175 (Continued) Procedure Result [...] at Main Lab DEPARTMENT OF PATHOLOGY, [address] [place] [address] Vinayak Yanez M.D. Director [facility] # [id number] 25 SEE RESULT BELOW Name: PRICE GUARDADO : [address]: Jessie Lazar MD Acct: [id number] Unit: [id number] AGE: 60 Location: [place] [address]- Re10/13/15 SEX: M Status: ADM IN SPEC: [id number] GABO: 10/13/15-1640 [facility] DR: Jessie Lazar MD REQ: [id number] RECD: 10/13/15 STATUS: RES OTHR DR: Gabbie Shell MD _ SOURCE: WOUND SPDESC:KNEE LEFT ORDERED: Anaerobic Cult/R, MRSA/SA SSTI/R, Culture Stain/R, Fungal - Other /R, Acid Fast Stain/U COMMENTS: Verbal to GEMINI CHAWLA by [id number] at 2020 on 10/13/15. Results read back [...] at Main Lab DEPARTMENT OF PATHOLOGY, [address] [place] [address] Vinayak Yanez M.D. Director [facility] # [id number] Patient: PRICE GUARDADO [id number] (Continued) Specimen: [id number] Collected: 10/13/15 Received: 10/13/15 (Continued) Procedure Result Reported Site Acid Fast Stain - Direct Final (continued) 10/14/15- 08 Due to limited sensitivity of the smear, results should be used as an adjunct in evaluating the patient's status and cultural examination is highly recommended for diagnosis. * ML - MAIN LAB ([facility]) . END OF REPORT * ML=Testing performed at Main Lab DEPARTMENT OF PATHOLOGY, [address] [place] [address] Vinayak Yanez M.D. Director [facility] # [id number] 26 SEE RESULT BELOW Name: PRICE GUARDADO : [address]: Jessei Lazar MD Acct: [id number] Unit: [id number] AGE: 60 Location: [facility] 338-01 Re10/13/15 Dis: 10/19/15 SEX: M Status: DIS IN SPEC: [id number] GABO: 10/13/15-[address]: Jessie Lazar MD REQ: [id number] RECD: 10/13/15 STATUS: RES OTHR DR: Gabbie Shell MD _ SOURCE: WOUND SPDESC:KNEE LEFT ORDERED: Anaerobic Cult/R, MRSA/SA SSTI/R, Culture Stain/R, Fungal - Other /R, Acid Fast Stain/U COMMENTS: Verbal to GEMINI CHAWLA by [id number] at 2020 on 10/13/15. Results read back accurately. CLOSTRIDIUM FINDINGS IN ADDITION TO S. AUREUS: Verbal to DR. SHELL by [id number] at 1411 on 10/15/15. Results read back [...] at Main Lab DEPARTMENT OF PATHOLOGY, [address] [place] [address] iVnayak Yanez M.D. Director [facility] # [id number] Patient: PRICE GUARDADO [id number] (Continued) Specimen: [id number] Collected: 10/13/15 Received: 10/13/15-991 (Continued) Procedure Result Reported Site Wound/Misc Culture [...] These antibiotics are not available in the [facility] Formulary Contact the Microbiology Department for any additional antibiotic reporting. Fungal Cult - Other Sources Preliminary 10/24/15- 1325 ML Fungal Culture No Growth of Mycotic Organisms 1 week Acid Fast Stain - Direct Final 10/14/15- 0810 ML CONTINUED ON NEXT PAGE * ML=Testing performed at Main Lab DEPARTMENT OF PATHOLOGY, [address] [place] [address] Vinayak Yanez M.D. Director [facility] # [id number] Patient: PRICE GUARDADO [id number] (Continued) Specimen: [id number] Collected: 10/13/15-1639 Received: 10/13/15 (Continued) Procedure Result [...] ML - MAIN LAB ([facility]) . END OF REPORT * ML=Testing performed at Main Lab DEPARTMENT OF PATHOLOGY, [address] [place] [address] Vinayak Yanez M.D. Director [facility] # [id number] 27 SEE RESULT BELOW Name: PRICE GUARDADO : [address]: Jessie Lazar MD Acct: [id number] Unit: [id number] AGE: 60 Location: [facility] Re10/13/15 SEX: M Status: REG SDC SPEC: [id number] GABO: 10/13/15-1640 [facility] DR: Jessie Lazar MD REQ: [id number] RECD: 10/13/15 STATUS: RES OTHR DR: Gabbie [...] at Main Lab DEPARTMENT OF PATHOLOGY, [address] [place] [address] Vinayak Yanez M.D. Director [facility] # [id number] 28 SEE RESULT BELOW Name: PRICE GUARDADO : [address]: Jessie Lazar MD Acct: [id number] Unit: [id number] AGE: 60 Location: [facility] 338-01 Re10/13/15 Dis: 10/19/15 SEX: M Status: DIS IN SPEC: [id number] GABO: 10/13/15-[address]: Jessie Lazar MD REQ: [id number] RECD: 10/13/15 STATUS: RES OTHR DR: Gabbie Shell MD _ SOURCE: WOUND SPDESC:KNEE LEFT ORDERED: Tissue Cult/GS/R, Fungal - Other/R, Acid Fast Stain/U COMMENTS: CLOSTRIDIUM FINDINGS IN ADDITION TO S. AUREUS: Verbal to DR. SHELL by [id number] at 1411 on 10/15/15. Results read back [...] at Main Lab DEPARTMENT OF PATHOLOGY, [address] [place] [address] Vinayak Yanez M.D. Director [facility] # [id number] Patient: PRICE GUARDADO [id number] (Continued) Specimen: [id number] Collected: 10/13/15 Received: 10/13/15 (Continued) Procedure Result Reported Site Acid Fast Stain - Direct Final (continued) 10/14/15817 Due to limited sensitivity of the smear, results should be used as an adjunct in evaluating the patient's status and cultural examination is highly recommended for diagnosis. * ML - MAIN LAB ([facility]) . END OF REPORT * ML=Testing performed at Main Lab DEPARTMENT OF PATHOLOGY, [address] [place] [address] Vinayak Yanez M.D. Director [facility] # [id number] 29 SEE RESULT BELOW Name: PRICE GUARDADO : [address]: Jessie Lazar MD Acct: [id number] Unit: [id number] AGE: 60 Location: [facility] 338-01 Re10/13/15 SEX: M Status: ADM IN SPEC: [id number] GABO: 10/13/15-1640 [facility] DR: Jessie Lazar MD REQ: [id number] RECD: 10/13/15821 STATUS: RES OTHR DR: Gabbie Shell MD _ SOURCE: WOUND SPDESC:KNEE LEFT ORDERED: Anaerobic Cult/R, MRSA/SA SSTI/R, Culture Stain/R, Fungal - Other /R, Acid Fast Stain/U COMMENTS: Verbal to GEMINI REYES CAMMY by [id number] at 2020 on 10/13/15. Results read back [...] at Main Lab DEPARTMENT OF PATHOLOGY, [address] [place] [address] Vinayak Yanez M.D. Director [facility] # [id number] Patient: PRICE GUARDADO [id number] (Continued) Specimen: [id number] Collected: 10/13/15-1639 Received: 10/13/15 (Continued) Procedure Result Reported Site Acid Fast Stain - Direct Final (continued) 10/14/15809 Due to limited sensitivity of the smear, results should be used as an adjunct in evaluating the patient's status and cultural examination is highly recommended for diagnosis. * ML - MAIN LAB ([facility]) . END OF REPORT * ML=Testing performed at Main Lab DEPARTMENT OF PATHOLOGY, [address] [place] [address] Vinayak Yanez M.D. Director [facility] # [id number] 30 SEE RESULT BELOW Name: PRICE GUARDADO : [address]: Jessie Lazar MD Acct: [id number] Unit: [id number] AGE: 60 Location: [place] [address] Re10/13/15 Dis: 10/19/15 SEX: M Status: DIS IN SPEC: [id number] GABO: 10/13/15-1640 [facility] DR: Jessie Lazar MD REQ: [id number] RECD: 10/13/15 STATUS: RES OTHR DR: Gabbie Shell MD _ SOURCE: WOUND SPDESC:KNEE LEFT ORDERED: Anaerobic Cult/R, MRSA/SA SSTI/R, Culture Stain/R, Fungal - Other /R, Acid Fast Stain/U COMMENTS: Verbal to GEMINI CHAWLA by [id number] at 2020 on 10/13/15. Results read back accurately. CLOSTRIDIUM FINDINGS IN ADDITION TO S. AUREUS: Verbal to DR. SHELL by [id number] at 1411 on 10/15/15. Results read back [...] at Main Lab DEPARTMENT OF PATHOLOGY, [address] [place] [address] Vinayak Yanez M.D. Director [facility] # [id number] Patient: PRICE GUARDADO [id number] (Continued) Specimen: [id number] Collected: 10/13/15-1639 Received: 10/13/15 (Continued) Procedure Result [...] These antibiotics are not available in the [facility] Formulary Contact the Microbiology Department for any additional antibiotic reporting. Fungal Cult - Other Sources Preliminary 10/31/15- 1443 ML Fungal Culture No Growth of Mycotic Organisms 2 weeks Acid Fast Stain - Direct Final 10/14/15- 0810 ML CONTINUED ON NEXT PAGE * ML=Testing performed at Main Lab DEPARTMENT OF PATHOLOGY, [address] [place] [address] Vinayak Yanez M.D. Director [facility] # [id number] Patient: PRICE GUARDADO [id number] (Continued) Specimen: [id number] Collected: 10/13/15 Received: 10/13/15696 (Continued) Procedure Result Reported Site Acid Fast Stain - Direct Final (continued) 10/14/15- 08 AFB Smear Result No Acid Fast Bacillus Present (Negative) Preparation By Direct Smear Due to limited sensitivity of the smear, results should be used as an adjunct in evaluating the patient's status and cultural examination is highly recommended for diagnosis. * ML - MAIN LAB ([facility]) . END OF REPORT * ML=Testing performed at Main Lab DEPARTMENT OF PATHOLOGY, [address] [place] [address] Vinayak Yanez M.D. Director [facility] # [id number] 31 SEE RESULT BELOW Name: PRICE GUARDADO : [address]: Jessie Lazar MD Acct: [id number] Unit: [id number] AGE: 60 Location: [facility] Re10/13/15 SEX: M Status: REG [facility] SPEC: [id number] GABO: 10/13/15-[address]: Jessie Lazar MD REQ: [id number] RECD: 10/13/15 STATUS: RES OTHR DR: Gabbie [...] at Main Lab DEPARTMENT OF PATHOLOGY, [address] [place] [address] Vinayak Yanez M.D. Director [facility] # [id number] 32 SEE RESULT BELOW Name: PRICE GUARDADO : [address]: Jessie Lazar MD Acct: [id number] Unit: [id number] AGE: 60 Location: [facility] 338-01 Re10/13/15 Dis: 10/19/15 SEX: M Status: DIS IN SPEC: [id number] GABO: 10/13/15-1640 [facility] DR: Jessie Lazar MD REQ: [id number] RECD: 10/13/15 STATUS: RES OTHR DR: Gabbie Shell MD _ SOURCE: WOUND SPDESC:KNEE LEFT ORDERED: Tissue Cult/GS/R, Fungal - Other/R, Acid Fast Stain/U COMMENTS: CLOSTRIDIUM FINDINGS IN ADDITION TO S. AUREUS: Verbal to DR. SHELL by [id number] at 1411 on 10/15/15. Results read back [...] at Main Lab DEPARTMENT OF PATHOLOGY, [address] [place] [address] Vinayak Yanez M.D. Director [facility] # [id number] Patient: PRICE GUARDADO [id number] (Continued) Specimen: [id number] Collected: 10/13/15-1639 Received: 10/13/15 (Continued) Procedure Result [...] at Main Lab DEPARTMENT OF PATHOLOGY, [address] [place] [address] Vinayak Yanez M.D. Director [facility] # [id number] 33 SEE RESULT BELOW Name: PRICE GUARDADO : [address]: Jessie Lazar MD Acct: [id number] Unit: [id number] AGE: 60 Location: [facility] 338- Re10/13/15 SEX: M Status: ADM IN SPEC: [id number] GABO: 10/13/15-1640 [facility] DR: Jessie Lazar MD REQ: [id number] RECD: 10/13/15 STATUS: RES OTHR DR: Gabbie Shell MD _ SOURCE: WOUND SPDESC:KNEE LEFT ORDERED: Anaerobic Cult/R, MRSA/SA SSTI/R, Culture Stain/R, Fungal - Other /R, Acid Fast Stain/U COMMENTS: Verbal to GEMINI CHAWLA by [id number] at 2020 on 10/13/15. Results read back [...] at Main Lab DEPARTMENT OF PATHOLOGY, [address] [place] [address] Vinayak Yanez M.D. Director [facility] # [id number] Patient: PRICE GUARDADO [id number] (Continued) Specimen: [id number] Collected: 10/13/15 Received: 10/13/15 (Continued) Procedure Result [...] at Main Lab DEPARTMENT OF PATHOLOGY, [address] [place] [address] Vinayak Yanez M.D. Director [facility] # [id number] 34 SEE RESULT BELOW Name: PRICE GUARDADO : [address]: Jessie Lazar MD Acct: [id number] Unit: [id number] AGE: 60 Location: [facility] 338-01 Re10/13/15 Dis: 10/19/15 SEX: M Status: DIS IN SPEC: [id number] GABO: 10/13/15-1640 [facility] DR: Jessie Lazar MD REQ: [id number] RECD: 10/13/15 STATUS: RES OTHR DR: Gabbie Shell MD _ SOURCE: WOUND SPDESC:KNEE LEFT ORDERED: Anaerobic Cult/R, MRSA/SA SSTI/R, Culture Stain/R, Fungal - Other /R, Acid Fast Stain/U COMMENTS: Verbal to GEMINI CHAWLA by [id number] at 2020 on 10/13/15. Results read back accurately. CLOSTRIDIUM FINDINGS IN ADDITION TO S. AUREUS: Verbal to DR. SHELL by [id number] at 1411 on 10/15/15. Results read back [...] at Main Lab DEPARTMENT OF PATHOLOGY, [address] [place] [address] Vinayak Yanez M.D. Director [facility] # [id number] Patient: PRICE GUARDADO [id number] (Continued) Specimen: [id number] Collected: 10/13/15 Received: 10/13/15 (Continued) Procedure Result [...] These antibiotics are not available in the [facility] Formulary Contact the Microbiology Department for any additional antibiotic reporting. Fungal Cult - Other Sources Preliminary 11/07/15- 1229 ML Fungal Culture No Growth of Mycotic Organisms 3 weeks Acid Fast Stain - Direct Final 10/14/15- 0810 ML CONTINUED ON NEXT PAGE * ML=Testing performed at Main Lab DEPARTMENT OF PATHOLOGY, [address] [place] [address] Vinayak Yanez M.D. Director [facility] # [id number] Patient: PRICE GUARDADO [id number] (Continued) Specimen: [id number] Collected: 10/13/15-1639 Received: 10/13/15 (Continued) Procedure Result [...] ML - MAIN LAB ([facility]) . END OF REPORT * ML=Testing performed at Main Lab DEPARTMENT OF PATHOLOGY, [address] [place] [address] Vinayak Yanez M.D. Director [facility] # [id number] 35 SEE RESULT BELOW Name: PRICE GUARDADO : [address]: Jessie Lazar MD Acct: [id number] Unit: [id number] AGE: 60 Location: SDS Re10/13/15 SEX: M Status: REG SDC SPEC: [id number] GABO: 10/13/15-1640 [facility] DR: Jessie Lazar MD REQ: [id number] RECD: 10/13/15 STATUS: RES ILANAHR DR: Gabbie [...] at Main Lab DEPARTMENT OF PATHOLOGY, [address] [place] [address] Vinayak Yanez M.D. Director [facility] # [id number] 36 SEE RESULT BELOW Name: PRICE GUARDADO : [address]: Jessie Lazar MD Acct: [id number] Unit: [id number] AGE: 60 Location: [facility] 338-01 Re10/13/15 Dis: 10/19/15 SEX: M Status: DIS IN SPEC: [id number] GABO: 10/13/15-[address]: Jessie Lazar MD REQ: [id number] RECD: 10/13/15 STATUS: COMP OTHR DR: Gabbie Shell MD _ SOURCE: WOUND SPDESC:KNEE LEFT ORDERED: Tissue Cult/GS/R, Fungal - Other/R, Acid Fast Stain/U COMMENTS: CLOSTRIDIUM FINDINGS IN ADDITION TO S. AUREUS: Verbal to DR. SHELL by [id number] at 1411 on 10/15/15. Results read back [...] at Main Lab DEPARTMENT OF PATHOLOGY, [address] [place] [address] Vinayak Yanez M.D. Director [facility] # [id number] Patient: PRICE GUARDADO [id number] (Continued) Specimen: [id number] Collected: 10/13/15 Received: 10/13/15 (Continued) Procedure Result Reported Site Acid Fast Stain - Direct Final (continued) 10/14/15- 08 Due to limited sensitivity of the smear, results should be used as an adjunct in evaluating the patient's status and cultural examination is highly recommended for diagnosis. * ML - MAIN LAB ([facility]) . END OF REPORT * ML=Testing performed at Main Lab DEPARTMENT OF PATHOLOGY, [address] [place] [address] Vinayak Yanez M.D. Director [facility] # [id number] 37 SEE RESULT BELOW Name: PRICE GUARDADO : [address]: Jessie Lazar MD Acct: [id number] Unit: [id number] AGE: 60 Location: [facility] 338-01 Re10/13/15 SEX: M Status: ADM IN SPEC: [id number] GABO: 10/13/15-[address] [place] [address] DR: Jessie Lazar MD REQ: [id number] RECD: 10/13/157904 STATUS: RES OTHR DR: Gabbie Shell MD _ SOURCE: WOUND SPDESC:KNEE LEFT ORDERED: Anaerobic Cult/R, MRSA/SA SSTI/R, Culture Stain/R, Fungal - Other /R, Acid Fast Stain/U COMMENTS: Verbal to GEMINI REYES PHARM by [id number] at 2020 on 10/13/15. Results read back [...] at Main Lab DEPARTMENT OF PATHOLOGY, [address] [place] [address] Vinayak Yanez M.D. Director [facility] # [id number] Patient: PRICE GUARDADO [id number] (Continued) Specimen: [id number] Collected: 10/13/15 Received: 10/13/15 (Continued) Procedure Result [...] at Main Lab DEPARTMENT OF PATHOLOGY, [address] [place] [address] Vinayak Yanez M.D. Director [facility] # [id number] 38 SEE RESULT BELOW Name: PRICE GUARDADO : [address]: Jessie Lazar MD Acct: [id number] Unit: [id number] AGE: 60 Location: [facility] 338-01 Re10/13/15 Dis: 10/19/15 SEX: M Status: DIS IN SPEC: [id number] GABO: 10/13/15-1640 [facility] DR: Jessie Lazar MD REQ: [id number] RECD: 10/13/157554 STATUS: DOLORES CARLOS DR: Gabbie Shell MD _ SOURCE: WOUND SPDESC:KNEE LEFT ORDERED: Anaerobic Cult/R, MRSA/SA SSTI/R, Culture Stain/R, Fungal - Other /R, Acid Fast Stain/U COMMENTS: Verbal to GEMINI REYES PHARM by [id number] at 2020 on 10/13/15. Results read back accurately. CLOSTRIDIUM FINDINGS IN ADDITION TO S. AUREUS: Verbal to DR. SHELL by [id number] at 1411 on 10/15/15. Results read back [...] at Main Lab DEPARTMENT OF PATHOLOGY, [address] [place] [address] Vinayak Yanez M.D. Director [facility] # [id number] Patient: PRICE GUARDADO [id number] (Continued) Specimen: [id number] Collected: 10/13/15-1639 Received: 10/13/15 (Continued) Procedure Result [...] These antibiotics are not available in the [facility] Formulary Contact the Microbiology Department for any additional antibiotic reporting. Fungal Cult - Other Sources Final 11/14/15- 1427 ML Fungal Culture No Growth of Mycotic Organisms 4 weeks Acid Fast Stain - Direct Final 10/14/15- 0810 ML CONTINUED ON NEXT PAGE * ML=Testing performed at Main Lab DEPARTMENT OF PATHOLOGY, [address] [place] [address] Vinayak Yanez M.D. Director [facility] # [id number] Patient: PRICE GUARDADO [id number] (Continued) Specimen: [id number] Collected: 10/13/15-1639 Received: 10/13/15-1753 (Continued) Procedure Result [...] ML - MAIN LAB ([facility]) . END OF REPORT * ML=Testing performed at Main Lab DEPARTMENT OF PATHOLOGY, [address] [place] [address] Vinayak Yanez M.D. Director [facility] # [id number] 39 SOURCE: KNEE, KNEE WOUND SWAB MYCOBACTERIAL CULTURE FINAL No growth after 60 days of incubation. Test Performed by: [place] [address] Air Hammer Stripper: Cam Isidro II, M.D., Ph.D. Procedures Date Code Description Status 10/09/2018 61263 Amputation,Toe;Interphalangeal Joint Completed 10/09/2018 63276 Amputation,Toe;Interphalangeal Joint Completed 09/22/2018 71399 EEG Recording Awake & Drowsy Completed 05/29/2018 79192 Incision Bone Cortex Foot Completed 05/29/2018 69955 Layer Closure Of Wounds 2.6CM - 7.5CM Completed Neck,Hands,Feet,Genitalia 05/29/2018 71708 Layer Closure Of Wounds 2.6CM - 7.5CM Completed Neck,Hands,Feet,Genitalia 05/29/2018 76099 Debridement Tissue/Muscle/Bone Completed 05/27/2018 06205 EKG, Interpretation Only Completed 04/24/2018 20033 Amputation,Toe;Interphalangeal Joint Completed 04/24/2018 28711 Amputation,Toe;Interphalangeal Joint Completed 04/24/2018 43868 Amputation,Toe;Interphalangeal Joint Completed 04/24/2018 50075 Amputation,Toe;Interphalangeal Joint Completed 04/24/2018 54219 Amputation,Toe;Interphalangeal Joint Completed 04/18/2018 04976 Revascularization,Endovascular W/Atherectomy, Inc Completed Angioplasty 04/18/2018 44687 Revascularization,Endovascular W/Atherectomy, Inc Completed Angioplasty 04/18/2018 73847 Angio Extremity, Bilateral Completed 04/18/2018 31177 Ultrasound Guidance For Vascular Access Completed 04/18/2018 83048 Moderate Sedation Services; Same Phys Intl 15 Mins; PT Completed >=5 Years 04/18/2018 40515 Moderate Sedation Services; Same Phys Each Additional Completed 15 Mins 12/10/2016 55995 ECHO Transthorasic Realtime 2D W Doppler & Color Flow Completed Hosp 12/09/2016 94946 EKG, Interpretation Only Completed 01/10/2016 63473 Treadmill Interp/Report Only Completed 01/10/2016 04186 Stress Test Supervsn W/Out I/R Completed 10/15/2015 00075 Arthroscopy,Knee For Infection,Lavage & Drainage Completed 10/15/2015 51148 Arthroscopy,Knee For Infection,Lavage & Drainage Completed 10/15/2015 03285 Arthroscopy,Knee For Infection,Lavage & Drainage Completed 10/15/2015 62995 Arthroscopy,Knee For Infection,Lavage & Drainage Completed 10/13/2015 48442 Arthroscopy,Knee,Meniscectomy Medial Or Lateral Completed 10/13/2015 20994 Arthroscopy,Knee,Meniscectomy Medial Or Lateral Completed 10/13/2015 54902 Arthroscopy,Knee For Infection,Lavage & Drainage Completed 05/18/2013 49562 EEG Recording Awake & Asleep Completed 03/13/2013 90417 Color Flow Doppler/Interp & Reprt Completed 03/13/2013 35712 Pulse Wave/Continuous-Interp.RPT Completed 03/13/2013 53338 Echocardiography, Transesophageal, Real Time W/Image 2D Completed W/W/O M-M 11/11/2012 04367424 Colonoscopy Completed Encounters Type Date Location Provider Dx Diagnosis Office Visit 10/13/2018 [facility] Z98.890 Other specified 10:11a Assoctrevor NP postprocedural Hospitalists states M86.9 Osteomyelitis, unspecified K52.9 Noninfective gastroenteritis and colitis, unspecified E11.9 Type 2 diabetes mellitus without complications Z86.73 Prsnl hx of TIA (TIA), and cereb infrc w/o resid deficits G25.0 Essential tremor I73.9 Peripheral vascular disease, unspecified Office Visit 10/12/2018 [facility] Z98.890 Other specified 10:11a Assocrtevor NP postprocedural Hospitalists states M86.9 Osteomyelitis, unspecified R19.7 Diarrhea, unspecified E11.9 Type 2 diabetes mellitus without complications Z86.73 Prsnl hx of TIA (TIA), and cereb infrc w/o resid deficits G25.0 Essential tremor I73.9 Peripheral vascular disease, unspecified Office Visit 10/11/2018 [facility] Z98.890 Other specified 10:10a Assoctrevor [place] postprocedural Hospitalists states M86.9 Osteomyelitis, unspecified I73.9 Peripheral vascular disease, unspecified K52.9 Noninfective gastroenteritis and colitis, unspecified F32.9 Major depressive disorder, single episode, unspecified E11.9 Type 2 diabetes mellitus without complications Z86.73 Prsnl hx of TIA (TIA), and cereb infrc w/o resid deficits G25.0 Essential tremor Office Visit 10/10/2018 12:10p [facility] Madalyn Jordan E11.52 Type 2 diabetes Infectious Gabrielle Pérez w diabetic Diseases peripheral angiopathy w gangrene E11.69 Type 2 diabetes mellitus with other specified complication M86.172 Other acute osteomyelitis, left ankle and foot E11.40 Type 2 diabetes mellitus with diabetic neuropathy, unsp Office Visit 10/10/2018 [facility] Z98.890 Other specified 10:10a Assoctrevor [place] postprocedural Hospitalists states M86.9 Osteomyelitis, unspecified I73.9 Peripheral vascular disease, unspecified K52.9 Noninfective gastroenteritis and colitis, unspecified F32.9 Major depressive disorder, single episode, unspecified E11.9 Type 2 diabetes mellitus without complications Z86.73 Prsnl hx of TIA (TIA), and cereb infrc w/o resid deficits G25.0 Essential tremor Office Visit 10/09/2018 10:10a [facility] Cam Z47.81 Encounter for Assoc,SAIDA Morgan orthopedic Hospitalists aftercare following surgical amp M86.172 Other acute osteomyelitis, left ankle and foot E11.9 Type 2 diabetes mellitus without complications I73.9 Peripheral vascular disease, unspecified I25.10 Athscl heart disease of [place] coronary artery w/o ang pctrs K31.84 Gastroparesis R19.7 Diarrhea, unspecified F32.9 Major depressive disorder, single episode, unspecified I10 Essential (primary) hypertension Office Visit 10/07/2018 Orthopedic Jose Juan King, M86.172 Other acute 11:15a Services Of osteomyelitis, left C.M.A. ankle and foot E11.621 Type 2 diabetes mellitus with foot ulcer L97.529 Non-pressure chronic ulcer oth prt left foot w unsp severity Office Visit 10/06/2018 2:15p [facility] Gastro[facility]ology Sofi Mejias, K31.84 Gastroparesis [employer] E11.69 Type 2 diabetes mellitus with other specified complication R19.7 Diarrhea, unspecified K59.00 Constipation, unspecified Office Visit 09/22/2018 11:16a [facility] Joe R29.818 Other symptoms Assoc,trevor Ramírez M.D. and signs Hospitalists involving the nervous system E11.9 Type 2 diabetes mellitus without complications I10 Essential (primary) hypertension Office Visit 09/21/2018 [facility] [place] R25.1 Tremor, 7:00a Clinic MD Lucio unspecified R47.81 Slurred speech R29.810 Facial weakness Z86.73 Prsnl hx of TIA (TIA), and cereb infrc w/o resid deficits Office Visit 09/21/2018 [facility] Carmen R41.82 Altered mental 11:16a Assoc,trevor Lawrence, [employer] status, Hospitalists unspecified E11.9 Type 2 diabetes mellitus without complications F32.9 Major depressive disorder, single episode, unspecified I10 Essential (primary) hypertension Office Visit 09/12/2018 Orthopedic Jose Juan King, L97.529 Non-pressure 11:00a Services Of chronic ulcer oth C.M.A. 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 Office Visit 09/09/2018 9:54a [facility] [place], J18.9 Pneumonia, Assoc,pc [employer] unspecified Hospitalists organism K31.84 Gastroparesis A41.9 Sepsis, unspecified organism L02.211 Cutaneous abscess of abdominal wall N17.9 Acute kidney failure, unspecified E11.9 Type 2 diabetes mellitus without complications I73.9 Peripheral vascular disease, unspecified F32.9 Major depressive disorder, single episode, unspecified Office Visit 09/07/2018 [facility] Tiffanie J18.9 Pneumonia, 9:54a Assoc,pc Hope, [employer] unspecified Hospitalists organism R11.2 Nausea with vomiting, unspecified R10.11 Right upper quadrant pain L02.211 Cutaneous abscess of abdominal wall N17.9 Acute kidney failure, unspecified E11.9 Type 2 diabetes mellitus without complications I10 Essential (primary) hypertension F32.9 Major depressive disorder, single episode, unspecified Z86.79 Personal history of other diseases of the circulatory system Office Visit 07/25/2018 4:25p Braxton Bautista I70.212 [facility] [place] [facility] [place] M.D. arteries of extrm w intrmt romelia, left leg Office Visit 07/23/2018 12:30p Braxton Bautista I70.222 [facility] [place] [facility] Pal Mahan M.D. arteries of extremities w rest pain, left leg Office Visit 06/16/2018 1:20p [facility] Madalyn Jordan T87.44 Infection of Infectious [place], amputation stump, Diseases M.D. left lower extremity T81.31xA Disruption of external operation (surgical) wound, NEC, init I73.9 Peripheral vascular disease, unspecified Z79.2 guard entrance registrar (current) use of antibiotics R19.7 Diarrhea, unspecified E11.51 Type 2 diabetes w diabetic 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 E11.69 Type 2 diabetes mellitus with other specified complication Office Visit 06/04/2018 1:00p [place] Kartik Jordan T87.44 Infection of Infectious Gabrielle Pérez 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 Office Visit 06/03/2018 [facility] T81.31xD Disruption of 2:51p Assoc,pc Suzie Bradley, external Hospitalists [employer] operation (surgical) wound, NEC, subs F32.9 Major depressive disorder, single episode, unspecified N17.9 Acute kidney failure, unspecified E11.9 Type 2 diabetes mellitus without complications I73.9 Peripheral vascular disease, unspecified Office Visit 06/02/2018 [facility] T81.31xD Disruption of 2:50p Assoc,trevor Bradley, external Hospitalists [employer] operation (surgical) wound, NEC, subs F32.9 Major depressive disorder, single episode, unspecified N17.9 Acute kidney failure, unspecified E11.9 Type 2 diabetes mellitus without complications I73.9 Peripheral vascular disease, unspecified Office Visit 06/01/2018 [facility] T81.31xD Disruption of 2:50p Assoc,trevor Bradley, external Hospitalists [employer] operation (surgical) wound, NEC, subs F32.9 Major depressive disorder, single episode, unspecified N17.9 Acute kidney failure, unspecified E11.9 Type 2 diabetes mellitus without complications I73.9 Peripheral vascular disease, unspecified Office Visit 05/31/2018 [facility] T81.31xA Disruption of 2:50p Assoc,trevor Bradley, external Hospitalists [employer] operation (surgical) wound, NEC, init F32.9 Major depressive disorder, single episode, unspecified N17.9 Acute kidney failure, unspecified E11.9 Type 2 diabetes mellitus without complications I73.9 Peripheral vascular disease, unspecified Office Visit 05/30/2018 [facility] T81.31xD Disruption of 2:49p Assoc,pc Jayy [employer] external Hospitalists operation (surgical) wound, NEC, subs I73.9 Peripheral vascular disease, unspecified E11.9 Type 2 diabetes mellitus without complications Office Visit 05/29/2018 [facility] T81.31xD Disruption of 2:49p Assoc,pc Hope, [employer] external Hospitalists operation (surgical) wound, NEC, subs N17.9 Acute kidney failure, unspecified I73.9 Peripheral vascular disease, unspecified E11.9 Type 2 diabetes mellitus without complications Office Visit 05/28/2018 12:39p [facility] Madalyn Jordan T87.81 Dehiscence of Infectious Gabrielle Pérez amputation stump Diseases T87.44 Infection of amputation stump, left lower extremity 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 ankle and foot Office Visit 04/19/2018 [facility] Sami Nicholson MD L97.513 Non-prs chronic 11:31a Assoc,pc ulcer oth prt right Hospitalists foot w necros muscle 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 I73.9 Peripheral vascular disease, unspecified Office Visit 04/19/2018 Orthopedic Jose Juan King, Z47.89 Encounter for 9:33a [facility] Of [place] MATTHEWS other orthopedic aftercare Office Visit 04/18/2018 [facility] L97.513 Non-prs chronic 11:30a Assoc,pc Faust[place], [place] ulcer oth prt Hospitalists right foot w necros muscle 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 I73.9 Peripheral vascular disease, unspecified F32.9 Major depressive disorder, single episode, unspecified G25.0 Essential tremor Office Visit 04/17/2018 11:30a [facility] Joe L97.513 Non-prs Assoc,trevor Ramírez M.D. chronic ulcer Hospitalists oth prt right foot w necros muscle 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 Office Visit 04/16/2018 9:11a [facility] Bautista I70.213 [facility] [place] [facility]an M.D. arteries of extrm w intrmt romelia, bi legs M87.878 Other osteonecrosis, left toe(s) Office Visit 04/16/2018 1:09p [facility] Steffanie I73.9 Peripheral Assoc,trevor Bradley, vascular disease, Hospitalists [employer] unspecified E11.51 Type 2 diabetes w diabetic 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 Office Visit 04/15/2018 12:44p [facility] Madalyn Jordan E11.52 Type 2 diabetes Elizabeth Pérez M.D. w diabetic Diseases peripheral angiopathy w gangrene Z86.73 Prsnl hx of TIA (TIA), and cereb infrc w/o resid deficits Office Visit 04/15/2018 11:29a [facility] Michelle Siu L97.513 Non- prs Assoc,pc DO chronic ulcer Hospitalists oth prt right foot w necros muscle E11.9 Type 2 diabetes mellitus without complications F32.9 Major depressive disorder, single episode, unspecified Office Visit 04/15/2018 2:11p Orthopedic Jyoti Mcdaniels M87.078 [facility] [place] aseptic necrosis C.M.A. of left toe(s) L03.032 Cellulitis of left toe Office Visit 12/10/2016 [facility] [place] Valdes, G45.9 Transient 2:49p Clinic MD cerebral ischemic attack, unspecified Office Visit 12/10/2016 [facility] Tiffanie R07.2 Precordial pain 3:56p Assoc,pc Hospitalists MARJORIE Hope R55 Syncope and collapse E11.9 Type 2 diabetes mellitus without complications G45.9 Transient cerebral ischemic attack, unspecified Office Visit 12/09/2016 3:55p [facility] Orlin Junior R55 Syncope and Assoc,pc II, M.D. collapse Hospitalists R07.2 Precordial pain E11.9 Type 2 diabetes mellitus without complications G45.9 Transient cerebral ischemic attack, unspecified Office 12/09/2016 [facility] Sae Major, G45.9 Transient Visit 1:48p Clinic Gabrielle cerebral ischemic attack, unspecified Office 01/10/2016 [facility] Sadie Joshi R07.9 Chest pain, Visit 12:51p Assoc,pc Hospitalists MARJORIE Tatum unspecified N17.9 Acute kidney failure, unspecified E11.9 Type 2 diabetes mellitus without complications I10 Essential (primary) hypertension Office Visit 01/09/2016 12:50p [facility] Estefanía Lewis, R07.9 Chest pain , Assoc,pc N.P. unspecified Hospitalists E11.9 Type 2 diabetes mellitus without complications N17.9 Acute kidney failure, unspecified I10 Essential (primary) hypertension Office Visit 11/30/2015 [facility] Jamar Jordan M00.062 Staphylococcal 3:20p For Elizabeth Pérez M.D. arthritis, left Diseases knee Office Visit 11/16/2015 [facility] Jamar Jordan M00.062 Staphylococcal 3:20p For Infectious Gabrielle Pérez arthritis, left Diseases knee B96.7 Clostridium perfringens causing diseases classd elswhr Office Visit 11/03/2015 [facility] Jamar Jordan M00.062 Staphylococcal 2:00p For Elizabeth Pérez M.D. 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 arthritis, left Diseases knee L02.416 Cutaneous abscess of left lower limb Office Visit 10/18/2015 [facility] Jamar LeeAdrianna M00.062 Staphylococcal 8:56a For Infectious Gabrielle Pérez arthritis, left Diseases knee R19.7 Diarrhea, unspecified V99.xxxA Unspecified transport accident, initial encounter B96.7 Clostridium perfringens causing diseases classd elswhr Office Visit 10/18/2015 [facility] Sanchez M00.062 Staphylococcal 10:02a Assoc,trevor Shell M.D. 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 arthritis, left Hospitalists knee E11.8 Type 2 diabetes mellitus with unspecified complications Office Visit 10/13/2015 [facility] Tiffanie M00.062 Staphylococcal 9:58a Assoc,trevor Hope MARJORIE arthritis, left Hospitalists knee E11.8 Type 2 diabetes mellitus with unspecified complications Office Visit 10/13/2015 7:00a [facility] Derek Hudson, M25.562 Pain in left [place] MATTHEWS knee M25.462 Effusion, left knee S81.012A Laceration without foreign body, left knee, init encntr B96.89 Oth bacterial agents as the cause of diseases classd elswhr Office Visit 07/29/2013 [facility] Paul Macario 333.1 Tremor Essential & 8:30a Neurologic Gabrielle Meadows Other Forms [facility] Office Visit 06/19/2013 [place] Paul Macario 437.9 Cerebrovascular 11:30a Neurologic Gabrielle Meadows Disease Or Lesion [facility] Unspec Office Visit 05/12/2013 [place] Paul Macario 345.40 Local-Related 10:45a Neurologic Gabrielle Meadows Epilepsy W/O Mention [facility] Of Intractable Epilepsy 438.89 Cerebrovascular Disease Late Effect Other 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 at [facility] Lqkfwcis68/22/2019 - Jose Juan King MDI73.9 Peripheral vascular disease, unspecifiedReferral:Edwin Mcadams MD, Surgery,General VascularFollow up:Follow Up: 2 lmxveE69.9 Osteomyelitis, unspecified
--- OUTSIDE RECORDS SUMMARY | 2018-11-03 15:07 | XMS REPORT | Continuity of Care Document ---
:1955 External Reference #:[id number] Author Name Selin Romeo Care Team Providers Name Role Phone Gabbie Shell MD Primary Care Physician Unavailable Payers Type Date Identification Numbers Payment Provider Subscriber Effective: Policy Number: [id number] [employer] Maryam Almarazelayne 2010 PayID: [id number] [address] [place] [address] Effective: 2018 Policy Number: [id number] Medicare Price Guardado PayID: [id number] [address] [place] [address] Expires: 2018 Policy Number: [id number] Medicare Price Guardado PayID: [id number] [address] [place] [address] Expires: 2018 Policy Number: [id number] Medicare Price Guardado PayID: [id number] [address] [place] [address] Expires: 2018 Policy Number: [id number] [employer] Maryam Guardado Group Number: [id number] [address] PayID: [id number] [place] [address] Onset: 2015 Policy Number: [id number] Jorden Price Guardado Group Number: [id number] [address] PayID: [id number] MAMADOU Pardo [id number] Advance Directives Description No Information Available Problems [...] Lily Mahan M.D. 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 Tobacco Use Start: Unknown End: Former Cigarette Smoker Unknown Smoking Status Reviewed: 10/07/18 Former Cigarette Smoker ETOH Use Denies alcohol [...] (XL) 0000 24HR every day Aspirin Adult 00/ Active Chewtabs 81mg 1 by mouth Unknown Low Strength 0000 every day Clopidogrel 0000/ Active Tablets 75mg 1 by mouth Unknown [...] 50mg Take as Unknown Citrate 0000 Directed Doxycycline / Active Capsules 100mg one tablet Unknown Hyclate 0000 twice daily Lamotrigine ER 08/01/ Hx Tablets 200 mg [...] 1 Jose Juan 2017 - Capsule By Fernando 05/07/ Mouth 2018 Three Times Daily Oxycodone [...] 25mg Paul Macario 2012 - Dori, 05/13/ M.DAdrianna 2012 Lamictal 05/13/ Hx Tablets 100mg 90tabs 1 and 1/2 Paul Macario 2012 - qaclive and Dori, 10/26/ /2 qhs M.D. 2015 for 2 wks then 1 and 1/2 qam and 1 qhs for 2 wks then 1 and 1/2 bid Lantus Solostar 00/00/ Hx Solution 100Unit/ML 5units inject 50 Unknown 0000 - units sc in 2018 morning, inject 7 units sc at hs Bupropion HCL 00/00/ Hx Tablets ER 300mg 1 by mouth Unknown ER (XL) 0000 - 24HR every day 2017 Lamictal 00/00/ Hx (?) 1 po daily Unknown 0000 - 2012 Lipitor 00/00/ Hx Tablets 20mg 90tabs one tab po [...] Unknown 0000 - tablet by 11/02/ mouth with 2016 every meal Tramadol HCL [...] Unknown 0000 - Tablet By Mouth 2018 Three Times Daily Glucotrol XL 00/00/ Hx Tablets ER 10mg Unknown 0000 - 24HR 2017 Cefepime HCL 00/00/ Hx Solution 1gm grams Unknown 0000 - Rec every 12 06/30/ hours 2017 through [facility] Vancomycin HCL 00/00/ Hx Solution 1000mg iv every Unknown 0000 - Rec 24 hours through 2017 [facility] Docusate 00/00/ Hx Capsules 100mg 1 tab by Unknown 0000 - mouth 2-3 09/30/ times a 2018 day as needed Immunizations Description No Information Available Vital Signs Date Vital Result Comment 10/07/2018 10:51am Height 67 inches 5'7" Heart [...] H/L Range Note Comp Metabolic Panel 06/23/2018 [facility] Sodium 137 mmol/L N 135-145 [address] [place] [address] [phone] Potassium 4.9 mmol/L N 3.5-5.0 Chloride 107 [...] Egfr 51.8 >60 1 Laboratory test 06/23/2018 [facility] Vancomycin Trough 17.8 g /mL finding [address] [place] [address] [phone] C Reactive Protein 4.23 mg/L N <8.01 Comp Metabolic Panel 06/17/2018 [facility] Sodium 133 mmol/L Low 135-[address] [place] [address] [phone] Chloride 100 mmol/L Low 101-111 Co2 Carbon [...] mg/dL High 70-100 3 Laboratory test 06/17/2018 [facility] Vancomycin Trough 21.6 g /mL finding [address] [place] [address] [phone] C Reactive Protein 6.85 mg/L N <8.01 Laboratory test 06/13/2018 [facility] C Difficile PCR SEE RESULT [address] [place] [address] [phone] CBC Auto Diff 06/11/2018 [facility] White Blood 6.9 10^3/uL N 3.5-[address] Count .8 [place] [address] [phone] Red Blood Count 3.88 10^6/uL Low 4.00-5.40 [...] Cells % 0.1 Comp Metabolic Panel 06/11/2018 [facility] Sodium 137 mmol/L N 135-[address] [place] [address] [phone] Potassium 4.4 mmol/L N 3.5-5.0 Chloride 102 [...] Egfr 53.3 >60 5 Laboratory test 06/11/2018 [facility] Vancomycin Trough 24.8 g /mL finding [address] [place] [address] [phone] C Reactive Protein 4.81 mg/L N <8.01 Laboratory test 04/24/2018 [facility] Point of Care 331 mg/dL High 70-100 [address] [place] [address] [phone] Laboratory test 04/24/2018 [facility] Surgical SEE RESULT [address] [place] [address] [phone] Laboratory test 04/24/2018 [facility] Point of Care 234 mg/dL High 70-100 [address] [place] [address] [phone] Laboratory test 04/24/2018 [facility] Point of Care 281 mg/dL High 70-100 [address] [place] [address] [phone] Laboratory test 04/24/2018 [facility] Point of Care 232 mg/dL High 70-100 [address] [place] [address] [phone] Laboratory test 11/14/2015 [facility] Erythrocyte Sed 66 mm/Hr High 0-[address] [place] [address] [phone] Comp Metabolic 11/14/2015 [facility] Sodium 135 mmol/L N 133- [address] [place] [address] [phone] Potassium 5.0 mmol/L N 3.5-5.0 Chloride 101 [...] 112.9 N >60 11 Laboratory test 11/14/2015 [facility] C Reactive 2.79 mg/L N < 5.00 [address] [place] [address] [phone] CBC Auto Diff 11/14/2015 [facility] White Blood 8.0 N 3.5- 10.[address] Count 10^3/[place] [address] [phone] Red Blood Count 4.22 10^6/uL N 4.0-5.4 [...] % 0.1 N Comp Metabolic Panel 11/08/2015 [facility] Sodium 135 mmol/L N 133-[address] [place] [address] [phone] Potassium 5.1 mmol/L High 3.5-5.0 Chloride 101 [...] 105.9 N >60 13 Laboratory test 11/08/2015 [facility] Erythrocyte Sed 77 mm/Hr High 0-[address] [place] [address] [phone] CBC Auto Diff 11/08/2015 [facility] White Blood 7.3 N 3.5- 10.[address] Count 10^3/[place] [address] [phone] Red Blood Count 4.45 10^6/uL N 4.0-5.4 [...] Cells % 0.6 N Laboratory test 11/08/2015 [facility] C Reactive 4.89 mg/L N < 5.00 [address] [place] [address] [phone] Comp Metabolic 10/31/2015 [facility] Sodium 134 mmol/L N 133- [address] [place] [address] [phone] Potassium 4.3 mmol/L N 3.5-5.0 Chloride 100 [...] 102.1 N >60 15 Laboratory test 10/31/2015 [facility] C Reactive 9.73 mg/L High < 5.00 [address] [place] [address] [phone] CBC Auto Diff 10/31/2015 [facility] White Blood 9.1 N 3.5- 10.[address] Count 10^3/[place] [address] [phone] Red Blood Count 4.36 10^6/uL N 4.0-5.4 [...] Cells % 0.1 N Laboratory test 10/31/2015 [facility] Erythrocyte Sed 95 mm/Hr High 0-[address] [place] [address] [phone] CBC Auto Diff 10/24/2015 [facility] White Blood 10.3 N 3.5- 10.[address] Count 10^3/[place] [address] [phone] Red Blood Count 4.23 10^6/uL N 4.0-5.4 [...] % 0 N Comp Metabolic Panel 10/24/2015 [facility] Sodium 136 mmol/L N 133-[address] [place] [address] [phone] Potassium 4.9 mmol/L N 3.5-5.0 Chloride 102 [...] 92.0 N >60 17 Laboratory test 10/24/2015 [facility] C Reactive 15.74 mg/L High < 5.00 [address] [place] [address] [phone] Laboratory test 10/13/2015 [facility] Point of Care 150 mg/dL High 74-106 [address] [place] [address] [phone] Laboratory test 10/13/2015 [facility] Wound SEE RESULT [address] Culture/[place] [address] [phone] Tissue (BX) Culture & Gram St SEE RESULT BELOW 21 MRSA/S. aureus Ssti PCR SEE RESULT BELOW 22 Anaerobic Culture SEE RESULT BELOW 23 Laboratory test 10/13/2015 [facility] Wound Culture/Sensi SEE RESULT [address] [place] [address] [phone] Tissue (BX) Culture & Gram St SEE RESULT BELOW 25 MRSA/S. aureus Ssti PCR SEE RESULT BELOW 26 Anaerobic Culture SEE RESULT BELOW 27 Laboratory test 10/13/2015 [facility] Wound Culture/Sensi SEE RESULT [address] [place] [address] [phone] Tissue (BX) Culture & Gram St SEE RESULT BELOW 29 MRSA/S. aureus Ssti PCR SEE RESULT BELOW 30 Anaerobic Culture SEE RESULT BELOW 31 Laboratory test 10/13/2015 [facility] Wound Culture/Sensi SEE RESULT [address] [place] [place], [place] [address] [phone] Tissue (BX) Culture & Gram St SEE RESULT BELOW 33 MRSA/S. aureus Ssti PCR SEE RESULT BELOW 34 Anaerobic Culture SEE RESULT BELOW 35 Laboratory test 10/13/2015 [facility] Mycobacterial See Comment N [address] [place] [address] [phone] 1 Because ethnic data is not always [...] Result [id number] Called to GONSALO at: 13:25:55 by:[id number] Read back by: GONSALO 4 SEE RESULT BELOW Name: PRICE GUARDADO : [address]: Jamar Pérez MD Acct: [id number] Unit: [id number] AGE: 62 Location: [facility] Re06/13/18 SEX: M Status: REG REF SPEC: [id number] GABO: 06/13/18-[address] [place] [address] DR: Jamar Pérez MD REQ: [id number] RECD: 06/13/18 STATUS: COMP _ SOURCE: STOOL SPDESC: ORDERED: C. diff PCR Procedure Result Reported Site Stool Specimen Description Final 06/13/18- 1609 ML Stool Color Brown Stool Form Formed Stool Consistency Hard C. difficile PCR Final 06/13/18- 1609 ML Test not performed * ML - Main Lab . END OF REPORT DEPARTMENT OF PATHOLOGY, [address] [place] [address] Vinayak Yanez M.D. Director [facility] # [id number] 5 Because ethnic data is not always [...] 5 Kidney failure <15 (or dialysis) 6 Car Sales Representative: [id number] 7 SEE RESULT BELOW Name: PRICE GUARDADO : [address]: Jose Juan King MD Acct: [id number] Unit: [id number] AGE: 62 Location: [place] Re04/24/18 SEX: M Status: WINIFRED DIXON SPEC: [id number] GABO: 04/24/18- SUBM DR: Jose Juan King MD REQ: [id number] RECD: 04/24/183210 STATUS: DARIANA _ ORDERED: Manuel, LEVEL 4 FINAL DIAGNOSIS [...] margin blue and plantar margin black, and reimbursement representative sections are submitted in cassettes A and B to include bone following decalcification in cassette A. Signed by and Reported on: Abby Ellis MD 04/29/18 1052 END OF REPORT DEPARTMENT OF PATHOLOGY, [address] [place] [address] Vinayak Yanez M.D. Director [facility] # [id number] 8 Car Sales Representative: [id number] 9 Car Sales Representative: [id number] 10 Car Sales Representative: [id number] 11 Because ethnic data is not always [...] (or dialysis) 18 Acute inflammation: >10.00 19 Car Sales Representative: [id number] FERNANDO PETTIT 20 SEE RESULT BELOW Name: PRICE GUARDADO : [address]: Jessie Lazar MD Acct: [id number] Unit: [id number] AGE: 60 Location: [facility] Re10/13/15 SEX: M Status: REG SDC SPEC: [id number] GABO: 10/13/15-1640 [facility] DR: Jessie Lazar MD REQ: [id number] RECD: 10/13/155941 STATUS: RES OTHR DR: Gabbie Shell MD [...] Direct PENDING * ML - MAIN LAB ([facility]) . END OF REPORT * ML=Testing performed at Main Lab DEPARTMENT OF PATHOLOGY, [address] [place] [address] Vinayak Yanez M.D. Director [facility] # [id number] 21 SEE RESULT BELOW Name: PRICE GUARDADO : [address]: Jessie Lazar MD Acct: [id number] Unit: [id number] AGE: 60 Location: [place] [address]- Re10/13/15 Dis: 10/19/15 SEX: M Status: DIS IN SPEC: [id number] GABO: 10/13/15-1640 [facility] DR: Jessie Lazar MD REQ: [id number] RECD: 10/13/15 STATUS: RES OTHR DR: Gabbie Shell MD _ SOURCE: WOUND SPDESC:KNEE LEFT ORDERED: Tissue Cult/GS/R, Fungal - Other/R, Acid Fast Stain/U COMMENTS: CLOSTRIDIUM FINDINGS IN ADDITION TO S. AUREUS: Verbal to DR. SHELL by [id number] at 1411 on 10/15/15. Results read back accurately. Procedure Result Reported Site Tissue Gram Stain Final 10/13/15- 1850 ML 2+ Neutrophils 2+ Gram Positive Cocci 2+ Gram Positive Bacilli Preparation By Direct Smear Tissue Culture Final 01/18/16- 0836 ML Organism 1 STAPHYLOCOCCUS AUREUS Quantity [...] at [facility] DEPARTMENT OF PATHOLOGY, [address] [place] [address] Vinayak Yanez M.D. Director [facility] # [id number] Patient: PRICE GUARDADO [id number] (Continued) Specimen: [id number] Collected: 10/13/15-1639 Received: 10/13/15-1755 (Continued) Procedure Result [...] at Main Lab DEPARTMENT OF PATHOLOGY, [address] [place] [address] Vinayak Yanez M.D. Director [facility] # [id number] 22 SEE RESULT BELOW Name: PRICE GUARDADO : [address]: Jessie Lazar MD Acct: [id number] Unit: [id number] AGE: 60 Location: [facility] 338- Re10/13/15 SEX: M Status: ADM IN SPEC: [id number] GABO: 10/13/15-1640 [facility] DR: Jessie Lazar MD REQ: [id number] RECD: 10/13/15 STATUS: RES OTHR DR: Gabbie Shell MD _ SOURCE: WOUND SPDESC:KNEE LEFT ORDERED: Anaerobic Cult/R, MRSA/SA SSTI/R, Culture Stain/R, Fungal - Other /R, Acid Fast Stain/U COMMENTS: Verbal to GEMINI CHAWLA by [id number] at 2020 on 10/13/15. Results read back [...] at Main Lab DEPARTMENT OF PATHOLOGY, [address] [place] [address] Vinayak Yanez M.D. Director [facility] # [id number] Patient: PRICE GUARDADO [id number] (Continued) Specimen: [id number] Collected: 10/13/15 Received: 10/13/15-106 (Continued) Procedure Result Reported Site Acid Fast Stain - Direct Final (continued) 10/14/15- 0810 Due to limited sensitivity of the smear, results should be used as an adjunct in evaluating the patient's status and cultural examination is highly recommended for diagnosis. * ML - MAIN LAB ([facility]) . END OF REPORT * ML=Testing performed at Main Lab DEPARTMENT OF PATHOLOGY, [address] [place] [address] Vinayak Yanez M.D. Director [facility] # [id number] 23 SEE RESULT BELOW Name: DEBBYPRICE : [address]: Jessie Lazar MD Acct: [id number] Unit: [id number] AGE: 60 Location: [facility] 338-01 Re10/13/15 Dis: 10/19/15 SEX: M Status: DIS IN SPEC: [id number] GABO: 10/13/15-[address] [place] [address] DR: Jessie Lazar MD REQ: [id number] RECD: 10/13/151305 STATUS: RES OTHR DR: Gabbie Shell MD _ SOURCE: WOUND SPDESC:KNEE LEFT ORDERED: Anaerobic Cult/R, MRSA/SA SSTI/R, Culture Stain/R, Fungal - Other /R, Acid Fast Stain/U COMMENTS: Verbal to GEMINI HASKINSZONIA CHAWLA by [id number] at 2020 on 10/13/15. Results read back accurately. CLOSTRIDIUM FINDINGS IN ADDITION TO S. AUREUS: Verbal to DR. SHELL by [id number] at 1411 on 10/15/15. Results read back [...] at Main Lab DEPARTMENT OF PATHOLOGY, [address] [place] [address] Vinayak Yanez M.D. Director [facility] # [id number] Patient: SHOELAYNEPRICE [id number] (Continued) Specimen: [id number] Collected: 10/13/15 Received: 10/13/15 (Continued) Procedure Result [...] These antibiotics are not available in the [facility] Formulary Contact the Microbiology Department for any additional antibiotic reporting. Fungal Cult - Other Sources Preliminary 10/24/15- 1325 ML Fungal Culture No Growth of Mycotic Organisms 1 week Acid Fast Stain - Direct Final 10/14/15- 0810 ML CONTINUED ON NEXT PAGE * ML=Testing performed at Main Lab DEPARTMENT OF PATHOLOGY, [address] [place] [address] Vinayak Yanez M.D. Director [facility] # [id number] Patient: PRICE GUARDADO [id number] (Continued) Specimen: [id number] Collected: 10/13/15-1640 Received: 10/13/151754 (Continued) Procedure Result [...] * ML - MAIN LAB ([facility]) . END OF REPORT * ML=Testing performed at Main Lab DEPARTMENT OF PATHOLOGY, [address] [place] [address] Vinayak Yanez M.D. Director [facility] # [id number] 24 SEE RESULT BELOW Name: PRICE GUARDADO : [address]: Jessie Lazar MD Acct: [id number] Unit: [id number] AGE: 60 Location: [facility] Re10/13/15 SEX: M Status: REG SDC SPEC: [id number] GABO: 10/13/15-1640 [facility] DR: Jessie Lazar MD REQ: [id number] RECD: 10/13/15 STATUS: RES OTHR DR: Gabbie [...] Direct PENDING * ML - MAIN LAB ([facility]) . END OF REPORT * ML=Testing performed at Main Lab DEPARTMENT OF PATHOLOGY, [address] [place] [address] Vinayak Yanez M.D. Director [facility] # [id number] 25 SEE RESULT BELOW Name: PRICE GUARDADO : [address]: Jessie Lazar MD Acct: [id number] Unit: [id number] AGE: 60 Location: [facility] 338-01 Re10/13/15 Dis: 10/19/15 SEX: M Status: DIS IN SPEC: [id number] GABO: 10/13/15-16[address] [facility] DR: Jessie Lazar MD REQ: [id number] RECD: 10/13/15 STATUS: RES OTHR DR: Gabbie Shell MD _ SOURCE: WOUND SPDESC:KNEE LEFT ORDERED: Tissue Cult/GS/R, Fungal - Other/R, Acid Fast Stain/U COMMENTS: CLOSTRIDIUM FINDINGS IN ADDITION TO S. AUREUS: Verbal to DR. SHELL by [id number] at 1411 on 10/15/15. Results read back [...] at Main Lab DEPARTMENT OF PATHOLOGY, [address] [place] [address] Vinayak Yanez M.D. Director [facility] # [id number] Patient: PRICE GUARDADO [id number] (Continued) Specimen: [id number] Collected: 10/13/15 Received: 10/13/15 (Continued) Procedure Result Reported Site Acid Fast Stain - Direct Final (continued) 10/14/15817 Due to limited sensitivity of the smear, results should be used as an adjunct in evaluating the patient's status and cultural examination is highly recommended for diagnosis. * ML - MAIN LAB ([facility]) . END OF REPORT * ML=Testing performed at Main Lab DEPARTMENT OF PATHOLOGY, [address] [place] [address] Vinayak Yanez M.D. Director [facility] # [id number] 26 SEE RESULT BELOW Name: PRICE GUARDADO Arcenio : [address]: Jessie Lazar MD Acct: [id number] Unit: [id number] AGE: 60 Location: [place] [address] Re10/13/15 SEX: M Status: ADM IN SPEC: [id number] GABO: 10/13/15-1640 [facility] DR: Jessie Lazar MD REQ: [id number] RECD: 10/13/151754 STATUS: RES OTHR DR: Gabbie Shell MD _ SOURCE: WOUND SPDESC:KNEE LEFT ORDERED: Anaerobic Cult/R, MRSA/SA SSTI/R, Culture Stain/R, Fungal - Other /R, Acid Fast Stain/U COMMENTS: Verbal to GEMINI CHAWLA by [id number] at 2020 on 10/13/15. Results read back [...] at Main Lab DEPARTMENT OF PATHOLOGY, [address] [place] [address] Vinayak Yanez M.D. Director [facility] # [id number] Patient: PRICE GUARDADO [id number] (Continued) Specimen: [id number] Collected: 10/13/15-1639 Received: 10/13/15-1753 (Continued) Procedure Result Reported Site Acid Fast Stain - Direct Final (continued) 10/14/15809 Due to limited sensitivity of the smear, results should be used as an adjunct in evaluating the patient's status and cultural examination is highly recommended for diagnosis. * ML - MAIN LAB ([facility]) . END OF REPORT * ML=Testing performed at Main Lab DEPARTMENT OF PATHOLOGY, [address] [place] [address] Vinayak Yanez M.D. Director [facility] # [id number] 27 SEE RESULT BELOW Name: PRICE GUARDADO Arcenio : [address]: Jessie Lazar MD Acct: [id number] Unit: [id number] AGE: 60 Location: [facility] 338- Re10/13/15 Dis: 10/19/15 SEX: M Status: DIS IN SPEC: [id number] GABO: 10/13/15-1640 [facility] DR: Jessie Lazar MD REQ: [id number] RECD: 10/13/15 STATUS: RES OTHR DR: Gabbie Shell MD _ SOURCE: WOUND SPDESC:KNEE LEFT ORDERED: Anaerobic Cult/R, MRSA/SA SSTI/R, Culture Stain/R, Fungal - Other /R, Acid Fast Stain/U COMMENTS: Verbal to GEMINI CHAWLA by [id number] at 2020 on 10/13/15. Results read back accurately. CLOSTRIDIUM FINDINGS IN ADDITION TO S. AUREUS: Verbal to DR. SHELL by [id number] at 1411 on 10/15/15. Results read back [...] at Main Lab DEPARTMENT OF PATHOLOGY, [address] [place] [address] Vinayak Yanez M.D. Director [facility] # [id number] Patient: PRICE GUARDADO [id number] (Continued) Specimen: [id number] Collected: 10/13/15 Received: 10/13/15 (Continued) Procedure Result [...] These antibiotics are not available in the [facility] Formulary Contact the Microbiology Department for any additional antibiotic reporting. Fungal Cult - Other Sources Preliminary 10/31/15- 1443 ML Fungal Culture No Growth of Mycotic Organisms 2 weeks Acid Fast Stain - Direct Final 10/14/15- 08 ML CONTINUED ON NEXT PAGE * ML=Testing performed at Main Lab DEPARTMENT OF PATHOLOGY, [address] [place] [address] Vinayak Yanez M.D. Director [facility] # [id number] Patient: PRICE GUARDADO [id number] (Continued) Specimen: [id number] Collected: 10/13/15 Received: 10/13/15 (Continued) Procedure Result Reported Site Acid Fast Stain - Direct Final (continued) 10/14/15809 AFB Smear Result No Acid Fast Bacillus Present (Negative) Preparation By Direct Smear Due to limited sensitivity of the smear, results should be used as an adjunct in evaluating the patient's status and cultural examination is highly recommended for diagnosis. * ML - MAIN LAB ([facility]) . END OF REPORT * ML=Testing performed at Main Lab DEPARTMENT OF PATHOLOGY, [address] [place] [address] Vinayak Yanez M.D. Director [facility] # [id number] 28 SEE RESULT BELOW Name: PRICE GUARDADO : [address]: Jessie Lazar MD Acct: [id number] Unit: [id number] AGE: 60 Location: [facility] Re10/13/15 SEX: M Status: REG SDC SPEC: [id number] GABO: 10/13/15-1640 [facility] DR: Jessie Lazar MD REQ: [id number] RECD: 10/13/15450 STATUS: RES OTHR DR: Gabbie Shell MD [...] Direct PENDING * ML - MAIN LAB ([facility]) . END OF REPORT * ML=Testing performed at Main Lab DEPARTMENT OF PATHOLOGY, [address] [place] [address] Vinayak Yanez M.D. Director [facility] # [id number] 29 SEE RESULT BELOW Name: PRICE GUARDADO : [address]: Jessie Lazar MD Acct: [id number] Unit: [id number] AGE: 60 Location: [facility] 338-01 Re10/13/15 Dis: 10/19/15 SEX: M Status: DIS IN SPEC: [id number] GABO: 10/13/15-1640 [facility] DR: Jessie Lazar MD REQ: [id number] RECD: 10/13/15 STATUS: RES OTHR DR: Gabbie Shell MD _ SOURCE: WOUND SPDESC:KNEE LEFT ORDERED: Tissue Cult/GS/R, Fungal - Other/R, Acid Fast Stain/U COMMENTS: CLOSTRIDIUM FINDINGS IN ADDITION TO S. AUREUS: Verbal to DR. SHELL by [id number] at 1411 on 10/15/15. Results read back [...] at [facility] DEPARTMENT OF PATHOLOGY, [address] [place] [address] Vinayak Yanez M.D. Director [facility] # [id number] Patient: PRICE GUARDADO [id number] (Continued) Specimen: [id number] Collected: 10/13/15 Received: 10/13/15-175 (Continued) Procedure Result Reported Site Acid Fast Stain - Direct Final (continued) 10/14/15817 Due to limited sensitivity of the smear, results should be used as an adjunct in evaluating the patient's status and cultural examination is highly recommended for diagnosis. * ML - MAIN LAB ([facility]) . END OF REPORT * ML=Testing performed at Main Lab DEPARTMENT OF PATHOLOGY, [address] [place] [address] Vinayak Yanez M.D. Director [facility] # [id number] 30 SEE RESULT BELOW Name: PRICE GUARDADO : [address]: Jessie Lazar MD Acct: [id number] Unit: [id number] AGE: 60 Location: [facility] 338- Re10/13/15 SEX: M Status: ADM IN SPEC: [id number] GABO: 10/13/15-1640 [facility] DR: Jessie Lazar MD REQ: [id number] RECD: 10/13/15 STATUS: RES OTHR DR: Gabbie Shell MD _ SOURCE: WOUND SPDESC:KNEE LEFT ORDERED: Anaerobic Cult/R, MRSA/SA SSTI/R, Culture Stain/R, Fungal - Other /R, Acid Fast Stain/U COMMENTS: Verbal to GEMINI CHAWLA by [id number] at 2020 on 10/13/15. Results read back [...] at Main Lab DEPARTMENT OF PATHOLOGY, [address] [place] [address] Vinayak Yanez M.D. Director [facility] # [id number] Patient: PRICE GUARDADO [id number] (Continued) Specimen: [id number] Collected: 10/13/15 Received: 10/13/15 (Continued) Procedure Result Reported Site Acid Fast Stain - Direct Final (continued) 10/14/15- 08 Due to limited sensitivity of the smear, results should be used as an adjunct in evaluating the patient's status and cultural examination is highly recommended for diagnosis. * ML - MAIN LAB ([facility]) . END OF REPORT * ML=Testing performed at Main Lab DEPARTMENT OF PATHOLOGY, [address] [place] [address] Vinayak Yanez M.D. Director [facility] # [id number] 31 SEE RESULT BELOW Name: PRICE GUARDADO : [address]: Jessie Lazar MD Acct: [id number] Unit: [id number] AGE: 60 Location: [facility] 338-01 Re10/13/15 Dis: 10/19/15 SEX: M Status: DIS IN SPEC: [id number] GABO: 10/13/15-[address]: Jessie Lazar MD REQ: [id number] RECD: 10/13/15 STATUS: RES OTHR DR: Gabbie Shell MD _ SOURCE: WOUND SPDESC:KNEE LEFT ORDERED: Anaerobic Cult/R, MRSA/SA SSTI/R, Culture Stain/R, Fungal - Other /R, Acid Fast Stain/U COMMENTS: Verbal to GEMINI CHAWLA by [id number] at 2020 on 10/13/15. Results read back accurately. CLOSTRIDIUM FINDINGS IN ADDITION TO S. AUREUS: Verbal to DR. SHELL by [id number] at 1411 on 10/15/15. Results read back [...] at Main Lab DEPARTMENT OF PATHOLOGY, [address] [place] [address] Vinayak Yanez M.D. Director [facility] # [id number] Patient: PRICE GUARDADO [id number] (Continued) Specimen: [id number] Collected: 10/13/15 Received: 10/13/15 (Continued) Procedure Result [...] These antibiotics are not available in the [facility] Formulary Contact the Microbiology Department for any additional antibiotic reporting. Fungal Cult - Other Sources Preliminary 11/07/15- 1229 ML Fungal Culture No Growth of Mycotic Organisms 3 weeks Acid Fast Stain - Direct Final 10/14/15- 0810 ML CONTINUED ON NEXT PAGE * ML=Testing performed at Main Lab DEPARTMENT OF PATHOLOGY, [address] [place] [address] Vinayak Yanez M.D. Director [facility] # [id number] Patient: PRICE GUARDADO [id number] (Continued) Specimen: [id number] Collected: 10/13/15-1639 Received: 10/13/15 (Continued) Procedure Result Reported Site Acid Fast Stain - Direct Final (continued) 10/14/15809 AFB Smear Result No Acid Fast Bacillus Present (Negative) Preparation By Direct Smear Due to limited sensitivity of the smear, results should be used as an adjunct in evaluating the patient's status and cultural examination is highly recommended for diagnosis. * ML - MAIN LAB ([facility]) . END OF REPORT * ML=Testing performed at Main Lab DEPARTMENT OF PATHOLOGY, [address] [place] [address] Vinayak Yanez M.D. Director [facility] # [id number] 32 SEE RESULT BELOW Name: PRICE GUARDADO : [address]: Jessie Lazar MD Acct: [id number] Unit: [id number] AGE: 60 Location: SDS Re10/13/15 SEX: M Status: REG SDC SPEC: [id number] GABO: 10/13/15-1640 [facility] DR: Jessie Lazar MD REQ: [id number] RECD: 10/13/15 STATUS: RES OTHR DR: Gabbie [...] at Main Lab DEPARTMENT OF PATHOLOGY, [address] [place] [address] Vinayak Yanez M.D. Director [facility] # [id number] 33 SEE RESULT BELOW Name: PRICE GUARDADO : [address]: Jessie Lazar MD Acct: [id number] Unit: [id number] AGE: 60 Location: [facility] 338-01 Re10/13/15 Dis: 10/19/15 SEX: M Status: DIS IN SPEC: [id number] GABO: 10/13/15-Jimmie RANKIN DR: Jessie Laazr MD REQ: [id number] RECD: 10/13/15 STATUS: COMP HR DR: Gabbie Shell MD _ SOURCE: WOUND SPDESC:KNEE LEFT ORDERED: Tissue Cult/GS/R, Fungal - Other/R, Acid Fast Stain/U COMMENTS: CLOSTRIDIUM FINDINGS IN ADDITION TO S. AUREUS: Verbal to DR. SHELL by [id number] at 1411 on 10/15/15. Results read back [...] at Main Lab DEPARTMENT OF PATHOLOGY, [address] [place] [address] Vinayak Yanez M.DAdrianna ORDOÑEZ # [id number] Patient: PRICE GUARDADO [id number] (Continued) Specimen: [id number] Collected: 10/13/15 Received: 10/13/15 (Continued) Procedure Result Reported Site Acid Fast Stain - Direct Final (continued) 10/14/15817 Due to limited sensitivity of the smear, results should be used as an adjunct in evaluating the patient's status and cultural examination is highly recommended for diagnosis. * ML - MAIN LAB ([facility]) . END OF REPORT * ML=Testing performed at Main Lab DEPARTMENT OF PATHOLOGY, [address] [place] [address] Vinayak Yanez M.D. Director [facility] # [id number] 34 SEE RESULT BELOW Name: PRICE GUARDADO : [address]: Jessie Lazra MD Acct: [id number] Unit: [id number] AGE: 60 Location: [facility] 338- Re10/13/15 SEX: M Status: ADM IN SPEC: [id number] GABO: 10/13/15-1640 [facility] DR: Jessie Lazar MD REQ: [id number] RECD: 10/13/156994 STATUS: RES OTHR DR: Gabbie Shell MD _ SOURCE: WOUND SPDESC:KNEE LEFT ORDERED: Anaerobic Cult/R, MRSA/SA SSTI/R, Culture Stain/R, Fungal - Other /R, Acid Fast Stain/U COMMENTS: Verbal to GEMINI CHAWLA by [id number] at 2020 on 10/13/15. Results read back [...] at Main Lab DEPARTMENT OF PATHOLOGY, [address] [place] [address] Vinayak Yanez M.D. Director [facility] # [id number] Patient: PRICE GUARDADO [id number] (Continued) Specimen: [id number] Collected: 10/13/15 Received: 10/13/15 (Continued) Procedure Result Reported Site Acid Fast Stain - Direct Final (continued) 10/14/15809 Due to limited sensitivity of the smear, results should be used as an adjunct in evaluating the patient's status and cultural examination is highly recommended for diagnosis. * ML - MAIN LAB ([facility]) . END OF REPORT * ML=Testing performed at Main Lab DEPARTMENT OF PATHOLOGY, [address] [place] [address] Vinayak Yanez M.D. Director [facility] # [id number] 35 SEE RESULT BELOW Name: PRICE GUARDADO Arcenio : [address]: Jessie Lazar MD Acct: [id number] Unit: [id number] AGE: 60 Location: [facility] 338-01 Re10/13/15 Dis: 10/19/15 SEX: M Status: DIS IN SPEC: [id number] GABO: 10/13/15-[address]: Jessie Lazar MD REQ: [id number] RECD: 10/13/15 STATUS: COMP OTHR DR: Gabbie Shell MD _ SOURCE: WOUND SPDESC:KNEE LEFT ORDERED: Anaerobic Cult/R, MRSA/SA SSTI/R, Culture Stain/R, Fungal - Other /R, Acid Fast Stain/U COMMENTS: Verbal to GEMINI CHAWLA by [id number] at 2020 on 10/13/15. Results read back accurately. CLOSTRIDIUM FINDINGS IN ADDITION TO S. AUREUS: Verbal to DR. SHELL by [id number] at 1411 on 10/15/15. Results read back [...] at Main Lab DEPARTMENT OF PATHOLOGY, [address] [place] [address] Vinayak Yanez M.D. Director [facility] # [id number] Patient: PRICE GUARDADO [id number] (Continued) Specimen: [id number] Collected: 10/13/15 Received: 10/13/15 (Continued) Procedure Result [...] These antibiotics are not available in the [facility] Formulary Contact the Microbiology Department for any additional antibiotic reporting. Fungal Cult - Other Sources Final 11/14/15- 1427 ML Fungal Culture No Growth of Mycotic Organisms 4 weeks Acid Fast Stain - Direct Final 01/15/16- 0810 ML CONTINUED ON NEXT PAGE * ML=Testing performed at Main Lab DEPARTMENT OF PATHOLOGY, [address] [place] [address] Vinayak Yanez M.D. Director [facility] # [id number] Patient: PRICE GUARDADO [id number] (Continued) Specimen: [id number] Collected: 10/13/15 Received: 10/13/15113 (Continued) Procedure Result Reported Site Acid Fast Stain - Direct Final (continued) 10/14/15- 809 AFB Smear Result No Acid Fast Bacillus Present (Negative) Preparation By Direct Smear Due to limited sensitivity of the smear, results should be used as an adjunct in evaluating the patient's status and cultural examination is highly recommended for diagnosis. * ML - MAIN LAB ([facility]) . END OF REPORT * ML=Testing performed at Main Lab DEPARTMENT OF PATHOLOGY, [address] [place] [address] Vinayak Yanez M.D. Director [facility] # [id number] SOURCE: KNEE, KNEE WOUND SWAB MYCOBACTERIAL CULTURE FINAL No growth after 60 days of incubation. Test Performed by: [place] [address] Non Morse Intercept Technician: Cam Isidro II, M.D., Ph.D. Procedures Date Code Description Status 05/29/2018 29851 Incision Bone Cortex Foot Completed 05/29/2018 23571 Layer Closure Of Wounds 2.6CM - 7.5CM Completed Neck,Hands,Feet,Genitalia 05/29/2018 04257 Layer Closure Of Wounds 2.6CM - 7.5CM Completed Neck,Hands,Feet,Genitalia 05/29/2018 27250 Debridement Tissue/Muscle/Bone Completed 05/27/2018 73992 EKG, Interpretation Only Completed 04/24/2018 62936 Amputation,Toe;Interphalangeal Joint Completed 04/24/2018 76694 Amputation,Toe;Interphalangeal Joint Completed 04/24/2018 04479 Amputation,Toe;Interphalangeal Joint Completed 04/24/2018 89074 Amputation,Toe;Interphalangeal Joint Completed 04/24/2018 39669 Amputation,Toe;Interphalangeal Joint Completed 04/18/2018 29591 Revascularization,Endovascular W/Atherectomy, Inc Completed Angioplasty 04/18/2018 98276 Revascularization,Endovascular W/Atherectomy, Inc Completed Angioplasty 04/18/2018 33121 Angio Extremity, Bilateral Completed 04/18/2018 63803 Ultrasound Guidance For Vascular Access Completed 04/18/2018 06952 Moderate Sedation Services; Same Phys Intl 15 Mins; PT >=5 Completed Years 04/18/2018 03997 Moderate Sedation Services; Same Phys Each Additional 15 Completed Mins 12/10/2016 90723 ECHO Transthorasic Realtime 2D W Doppler & Color Flow Hosp Completed 12/09/2016 17055 EKG, Interpretation Only Completed 01/10/2016 61478 Treadmill Interp/Report Only Completed 01/10/2016 71783 Stress Test Supervsn W/Out I/R Completed 10/15/2015 16092 Arthroscopy,Knee For Infection,Lavage & Drainage Completed 10/15/2015 75795 Arthroscopy,Knee For Infection,Lavage & Drainage Completed 10/15/2015 46829 Arthroscopy,Knee For Infection,Lavage & Drainage Completed 10/15/2015 82314 Arthroscopy,Knee For Infection,Lavage & Drainage Completed 10/13/2015 17357 Arthroscopy,Knee,Meniscectomy Medial Or Lateral Completed 10/13/2015 19193 Arthroscopy,Knee,Meniscectomy Medial Or Lateral Completed 10/13/2015 96588 Arthroscopy,Knee For Infection,Lavage & Drainage Completed 05/18/2013 41689 EEG Recording Awake & Asleep Completed 03/13/2013 06151 Color Flow Doppler/Interp & Reprt Completed 03/13/2013 03022 Pulse Wave/Continuous-Interp.RPT Completed 03/13/2013 39945 Echocardiography, Transesophageal, Real Time W/Image 2D Completed W/W/O M-M Encounters Type Date Location Provider Dx Diagnosis Office Visit 09/22/2018 [facility] Joe Ramírez, R29.818 Other symptoms 11:16a Assoc,pc M.D. and signs Hospitalists involving the nervous system E11.9 Type 2 diabetes mellitus without complications I10 Essential (primary) hypertension Office Visit 09/09/2018 9:54a [facility] Alpa Holm, J18.9 Pneumonia, Assoc,pc PRECAST MOLDER unspecified Hospitalists organism K31.84 Gastroparesis A41.9 Sepsis, unspecified organism L02.211 Cutaneous abscess of abdominal wall N17.9 Acute kidney failure, unspecified E11.9 Type 2 diabetes mellitus without complications I73.9 Peripheral vascular disease, unspecified F32.9 Major depressive disorder, single episode, unspecified Office Visit 09/07/2018 [facility] Tiffanie J18.9 Pneumonia, 9:54a Assoc,trevor Hope, PRECAST MOLDER unspecified Hospitalists organism R11.2 Nausea with vomiting, unspecified R10.11 Right upper quadrant pain L02.211 Cutaneous abscess of abdominal wall N17.9 Acute kidney failure, unspecified E11.9 Type 2 diabetes mellitus without complications I10 Essential (primary) hypertension F32.9 Major depressive disorder, single episode, unspecified Z86.79 Personal history of other diseases of the circulatory system Office Visit 07/25/2018 4:25p Braxton Bautista I70.212 [facility] Mahan M.D. arteries of extrm w intrmt romelia, left leg Office Visit 07/23/2018 12:30p Braxton Bautista I70.222 [facility] M.D. arteries of extremities w rest pain, left leg Office Visit 06/16/2018 1:20p [facility] Madalyn Jordan T87.44 Infection of Infectious [place], amputation stump, Diseases M.D. left lower extremity T81.31xA Disruption of external operation (surgical) wound, NEC, init I73.9 Peripheral vascular disease, unspecified Z79.2 penitentiary (current) use of antibiotics R19.7 Diarrhea, unspecified E11.51 Type 2 diabetes w diabetic 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 E11.69 Type 2 diabetes mellitus with other specified complication Office Visit 06/04/2018 1:00p [facility] Madalyn Jordan T87.44 Infection of Infectious Ricky MAdriannaD. 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 Steffanie T81.31xD Disruption of 2:51p Assoc,trevor Bradley, external Hospitalists PRECAST MOLDER operation (surgical) wound, NEC, subs F32.9 Major depressive disorder, single episode, unspecified N17.9 Acute kidney failure, unspecified E11.9 Type 2 diabetes mellitus without complications I73.9 Peripheral vascular disease, unspecified Office Visit 06/02/2018 [facility] T81.31xD Disruption of 2:50p Assoc,trevor CanalesSuzie Kirk, external Hospitalists PRECAST MOLDER operation (surgical) wound, NEC, subs F32.9 Major depressive disorder, single episode, unspecified N17.9 Acute kidney failure, unspecified E11.9 Type 2 diabetes mellitus without complications I73.9 Peripheral vascular disease, unspecified Office Visit 06/01/2018 [facility] T81.31xD Disruption of 2:50p Assoc, Suzie Bradley, external Hospitalists PRECAST MOLDER operation (surgical) wound, NEC, subs F32.9 Major depressive disorder, single episode, unspecified N17.9 Acute kidney failure, unspecified E11.9 Type 2 diabetes mellitus without complications I73.9 Peripheral vascular disease, unspecified Office Visit 05/31/2018 [facility] T81.31xA Disruption of 2:50p Assoc, Suzie Kirk, external Hospitalists PRECAST MOLDER operation (surgical) wound, NEC, init F32.9 Major depressive disorder, single episode, unspecified N17.9 Acute kidney failure, unspecified E11.9 Type 2 diabetes mellitus without complications I73.9 Peripheral vascular disease, unspecified Office Visit 05/30/2018 [facility] T81.31xD Disruption of 2:49p Assoc,trevor Hope PRECAST MOLDER external Hospitalists operation (surgical) wound, NEC, subs I73.9 Peripheral vascular disease, unspecified E11.9 Type 2 diabetes mellitus without complications Office Visit 05/29/2018 [facility] T81.31xD Disruption of 2:49p Assoc,trevor Hope, PRECAST MOLDER external Hospitalists operation (surgical) wound, NEC, subs N17.9 Acute kidney failure, unspecified I73.9 Peripheral vascular disease, unspecified E11.9 Type 2 diabetes mellitus without complications Office Visit 05/28/2018 12:39p [facility] Kartik Jordan T87.81 Dehiscence of Infectious Gabrielle Pérez amputation stump Diseases T87.44 Infection of amputation stump, left lower extremity 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 ankle and foot Office Visit 04/19/2018 Susana King, Z47.89 Encounter for other 9:33a Services Of orthopedic C.M.A. aftercare Office Visit 04/19/2018 [facility] Sami Nicholson MD L97.513 Non-prs chronic 11:31a Assoc,pc ulcer oth prt right Hospitalists foot w necros muscle 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 I73.9 Peripheral vascular disease, unspecified Office Visit 04/18/2018 11:30a [facility] L97.513 Non-prs Assoc,SAIDA Alvarado chronic ulcer Hospitalists oth prt right foot w necros muscle 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 I73.9 Peripheral vascular disease, unspecified F32.9 Major depressive disorder, single episode, unspecified G25.0 Essential tremor Office Visit 04/17/2018 11:30a [facility] Joe L97.513 Non-prs Assoc,trevor Ramírez M.D. chronic ulcer Hospitalists oth prt right foot w necros muscle 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 Office Visit 04/16/2018 1:09p [facility] Steffanie I73.9 Peripheral Assoc,pc Suzie Bradley, vascular disease, Hospitalists PRECAST MOLDER unspecified E11.51 Type 2 diabetes w diabetic 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 Office Visit 04/16/2018 9:11a [facility] Bautista I70.213 [facility] M.D. arteries of extrm w intrmt romelia, bi legs M87.878 Other osteonecrosis, left toe(s) Office Visit 04/15/2018 2:11p [facility]opedic Jyoti Mcdaniels, M87.078 [facility] aseptic necrosis C.M.A. of left toe(s) L03.032 Cellulitis of left toe Office Visit 04/15/2018 11:29a [facility] Michelle Siu, L97.513 Non- prs Assoc,trevor GIBBS chronic ulcer Hospitalists oth prt right foot w necros muscle E11.9 Type 2 diabetes mellitus without complications F32.9 Major depressive disorder, single episode, unspecified Office Visit 04/15/2018 12:44p [facility] Jamar Jordan E11.52 Type 2 diabetes Elizabeth Pérez M.D. w diabetic Diseases peripheral angiopathy w gangrene Z86.73 Prsnl hx of TIA (TIA), and cereb infrc w/o resid deficits Office Visit 12/10/2016 [facility] Phoenix Valdes, G45.9 Transient 2:49p Clinic cerebral ischemic attack, unspecified Office Visit 12/10/2016 [facility] Tiffanie R07.2 Precordial pain 3:56p Assoc,pc Hospitalists Jayy, MARJORIE R55 Syncope and collapse E11.9 Type 2 diabetes mellitus without complications G45.9 Transient cerebral ischemic attack, unspecified Office 12/09/2016 [facility] Sae Major, G45.9 Transient Visit 1:48p Clinic Gabrielle cerebral ischemic attack, unspecified Office 12/09/2016 [facility] Orlin Sandi R55 Syncope and Visit 3:55p Assoc,trevor Fowler II, M.D. collapse R07.2 Precordial pain E11.9 Type 2 diabetes mellitus without complications G45.9 Transient cerebral ischemic attack, unspecified Office Visit 01/10/2016 [facility] Sadie Tomlinsonnellytristen R07.9 Chest pain, 12:51p Assoc,trevor Tatum, PRECAST MOLDER unspecified Hospitalists N17.9 Acute kidney failure, unspecified E11.9 Type 2 diabetes mellitus without complications I10 Essential (primary) hypertension Office Visit 01/09/2016 12:50p [facility] Estefanía Lewis, R07.9 Chest pain , Assoc,trevor N.P. unspecified Hospitalists E11.9 Type 2 diabetes mellitus without complications N17.9 Acute kidney failure, unspecified I10 Essential (primary) hypertension Office Visit 11/30/2015 [facility] Jamar Jordan M00.062 Staphylococcal 3:20p For Infectious Gabrielle Pérez arthritis, left Diseases knee [facility].062 Staphylococcal 3:20p For Infectious Gabrielle Pérez arthritis, left Diseases knee B96.7 Clostridium perfringens causing diseases classd elswhr Office Visit 11/03/2015 [facility] Jamar Jordan M00.062 Staphylococcal 2:00p For Infectious Gabrielle Pérez 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 Sanchez M00.062 Staphylococcal 10:02a Asstrevor kumar M.D. 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 Sanchez M00.062 Staphylococcal 10:01a Assoctrevor M.D. 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 Sanchez M00.062 Staphylococcal 10:00a Asstrevor kumar M.D. 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 Sanchez M00.062 Staphylococcal 10:00a Assoctrevor M.D. 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 Nasima M00.062 Staphylococcal 9:59a Asstrevor kumar D.O. arthritis, left Hospitalists knee E11.8 Type 2 diabetes mellitus with unspecified complications Office Visit 10/13/2015 [facility] Tiffanie M00.062 Staphylococcal 9:58a Assoc,trevor Hope NP arthritis, left Hospitalists knee E11.8 Type 2 diabetes mellitus with unspecified complications Office Visit 10/13/2015 7:00a [facility] Services Derek Hudson, M25.562 Pain in left Of [place] MATTHEWS knee M25.462 Effusion, left knee S81.012A Laceration without foreign body, left knee, init encntr B96.89 Oth bacterial agents as the cause of diseases classd elswhr Office Visit 07/29/2013 [facility] Paul Macario 333.1 Tremor Essential & 8:30a Neurologic Gabrielle Meadows Other Forms [facility] Office Visit 06/19/2013 [facility] Paul Macario 437.9 Cerebrovascular 11:30a Gaurang Meadows M.D. Disease Or Lesion Services [facility] Unspec Office Visit 05/12/2013 [facility] Paul Macario 345.40 Local-Related 10:45a Gaurang Meadows M.D. Epilepsy W/O Mention Services [facility] Of Intractable Epilepsy 438.89 Cerebrovascular Disease Late Effect Other 331.83 Mild Cognitive Impairment So Stated Office Visit 03/13/2013 [facility]t Gaurang Bradford 435.9 TIA Ischemia 12:53p [facility] Gabrielle Warren Cerebral Transient Unspec Office Visit 03/13/2013 [facility] Nasima Prescottr, 784.51 Dysarthria 2:43p Assoc,pc D.O. Hospitalists 272.2 Hyperlipidemia Mixed 435.9 TIA Ischemia Cerebral Transient Unspec 305.1 Tobacco Use Disorder Office Visit 03/12/2013 [facility] Gaurang Bradford 435.9 TIA Ischemia 12:52p [facility] Gabrielle Warren Cerebral Transient Unspec Office Visit 03/12/2013 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
--- OUTSIDE RECORDS SUMMARY | 2018-11-03 15:08 | XMS REPORT | Continuity of Care Document ---
:1955 External Reference #:[id number] Author Name Chioma Dias Care Team Providers Name Role Phone Gabbie Shell MD Primary Care Physician Unavailable Payers Type Date Identification Numbers Payment Provider Subscriber Effective: Policy Number: [id number] [employer] Maryam Guardado 2010 PayID: [id number] [address] [place] [address] Effective: 2018 Policy Number: [id number] Medicare Price Guardado PayID: [id number] [address] [place] [address] Expires: 2018 Policy Number: [id number] Medicare Price Guardado PayID: [id number] [address] [place] [address] Expires: 2018 Policy Number: [id number] Medicare Price Guardado PayID: [id number] [address] [place] [address] Expires: 2018 Policy Number: [id number] [employer] Maryam Waterman Debby [employer] Number: [id number] [address] PayID: [id number] [place] [address] Onset: 2015 Policy Number: [id number] [place] Price Rg Debby Group Number: [id number] [address] PayID: [id number] MAMADOU Pardo [phone] Advance Directives Description No Information Available Problems [...] Former Cigarette Smoker Unknown Smoking Status Reviewed: 10/06/18 Former Cigarette Smoker ETOH Use Denies alcohol [...] Unknown Low Strength 0000 every day Clopidogrel 00/00/ Active Tablets 75mg 1 by mouth Unknown 0000 every evening Acetaminophen 00// Active Tablets 325mg 2 tablets Unknown 0000 [...] 50mg Take as Unknown Citrate 0000 Directed Lamotrigine ER 08/01/ Hx Tablets 200 mg [...] 05/13/ Hx Tablets 100mg 90tabs 1 and 2 Paul Macario 2012 - [facility] and Dori, [...] By 2017 Three Times Daily Glucotrol XL 00/00/ Hx Tablets ER 10mg Unknown 0000 - 24HR 2017 Cefepime HCL 00/00/ Hx Solution 1gm grams Unknown 0000 - Rec every 12 10/ hours 2018 through [facility] Vancomycin HCL 00/00/ Hx Solution 1000mg iv every Unknown 0000 - Rec 24 hours through 2017 [facility] Docusate 00/00/ Hx Capsules 100mg 1 tab by Unknown 0000 - mouth 2-3 09/30/ times a 2019 day as needed Immunizations Description No Information Available Vital Signs Date Vital Result Comment 10/06/2018 2:31pm Height 67 inches 5'7" Weight [...] H/L Range Note Comp Metabolic Panel 06/23/2018 [facility] Sodium 137 mmol/L N 135-145 [address] [place] [address] [phone] Potassium 4.9 mmol/L N 3.5-5.0 Chloride 107 [...] Egfr 51.8 >60 1 Laboratory test 06/23/2018 [facility] Vancomycin Trough 17.8 g /mL finding [address] [place] [address] [phone] C Reactive Protein 4.23 mg/L N <8.01 Comp Metabolic Panel 06/17/2018 [facility] Sodium 133 mmol/L Low 135-[address] [place] [address] [phone] Chloride 100 mmol/L Low 101-111 Co2 Carbon [...] mg/dL High 70-100 3 Laboratory test 06/17/2018 [facility] Vancomycin Trough 21.6 g /mL finding [address] [place] [address] [phone] C Reactive Protein 6.85 mg/L N <8.01 Laboratory test 06/13/2018 [facility] C Difficile PCR SEE RESULT [address] [place] [address] [phone] CBC Auto Diff 06/11/2018 [facility] White Blood 6.9 10^3/uL N 3.5-[address] Count .8 [place] [address] [phone] Red Blood Count 3.88 10^6/uL Low 4.00-5.40 [...] Cells % 0.1 Comp Metabolic Panel 06/11/2018 [facility] Sodium 137 mmol/L N 135-145 [address] [place] [address] [phone] Potassium 4.4 mmol/L N 3.5-5.0 Chloride 102 [...] Egfr 53.3 >60 5 Laboratory test 06/11/2018 [facility] Vancomycin Trough 24.8 g /mL finding [address] [place] [address] [phone] C Reactive Protein 4.81 mg/L N <8.01 Laboratory test 04/24/2018 [facility] Point of Care 331 mg/dL High 70-100 [address] Glucose [place], [place] [address] [phone] Laboratory test 04/24/2018 [facility] Surgical SEE RESULT [address] [place] [address] [phone] Laboratory test 04/24/2018 [facility] Point of Care 234 mg/dL High 70-100 [address] [place] [address] [phone] Laboratory test 04/24/2018 [facility] Point of Care 281 mg/dL High 70-100 [address] [place] [address] [phone] Laboratory test 04/24/2018 [facility] Point of Care 232 mg/dL High 70-100 [address] [place] [address] [phone] Laboratory test 11/14/2015 [facility] Erythrocyte Sed 66 mm/Hr High 0-[address] [place] [address] [phone] Comp Metabolic 11/14/2015 [facility] Sodium 135 mmol/L N 133- [address] [place] [address] [phone] Potassium 5.0 mmol/L N 3.5-5.0 Chloride 101 [...] 112.9 N >60 11 Laboratory test 11/14/2015 [facility] C Reactive 2.79 mg/L N < 5.00 [address] [place] [address] [phone] CBC Auto Diff 11/14/2015 [facility] White Blood 8.0 N 3.5- 10.[address] Count 10^3/[place] [address] [phone] Red Blood Count 4.22 10^6/uL N 4.0-5.4 [...] % 0.1 N Comp Metabolic Panel 11/08/2015 [facility] Sodium 135 mmol/L N 133-[address] [place] [address] [phone] Potassium 5.1 mmol/L High 3.5-5.0 Chloride 101 [...] 105.9 N >60 13 Laboratory test 11/08/2015 [facility] Erythrocyte Sed 77 mm/Hr High 0-[address] [place] [address] [phone] CBC Auto Diff 11/08/2015 [facility] White Blood 7.3 N 3.5- 10.[address] Count 10^3/[place] [address] [phone] Red Blood Count 4.45 10^6/uL N 4.0-5.4 [...] Cells % 0.6 N Laboratory test 11/08/2015 [facility] C Reactive 4.89 mg/L N < 5.00 [address] [place] [address] [phone] Comp Metabolic 10/31/2015 [facility] Sodium 134 mmol/L N 133- [address] [place] [address] [phone] Potassium 4.3 mmol/L N 3.5-5.0 Chloride 100 [...] 102.1 N >60 15 Laboratory test 10/31/2015 [facility] C Reactive 9.73 mg/L High < 5.00 [address] [place] [address] [phone] CBC Auto Diff 10/31/2015 [facility] White Blood 9.1 N 3.5- 10.[address] Count 10^3/[place] [address] [phone] Red Blood Count 4.36 10^6/uL N 4.0-5.4 [...] Cells % 0.1 N Laboratory test 10/31/2015 [facility] Erythrocyte Sed 95 mm/Hr High 0-[address] [place] [address] [phone] CBC Auto Diff 10/24/2015 [facility] White Blood 10.3 N 3.5- 10.[address] Count 10^3/[place] [address] [phone] Red Blood Count 4.23 10^6/uL N 4.0-5.4 [...] % 0 N Comp Metabolic Panel 10/24/2015 [facility] Sodium 136 mmol/L N 133-[address] [place] [address] [phone] Potassium 4.9 mmol/L N 3.5-5.0 Chloride 102 [...] 92.0 N >60 17 Laboratory test 10/24/2015 [facility] C Reactive 15.74 mg/L High < 5.00 [address] [place] [address] [phone] Laboratory test 10/13/2015 [facility] Point of Care 150 mg/dL High 74-106 [address] [place] [address] [phone] Laboratory test 10/13/2015 [facility] Wound SEE RESULT [address] Culture/[place] [address] [phone] Tissue (BX) Culture & Gram St SEE RESULT BELOW 21 MRSA/S. aureus Ssti PCR SEE RESULT BELOW 22 Anaerobic Culture SEE RESULT BELOW 23 Laboratory test 10/13/2015 [facility] Wound Culture/Sensi SEE RESULT [address] [place] [place], [place] [phone] Tissue (BX) Culture & Gram St SEE RESULT BELOW 25 MRSA/S. aureus Ssti PCR SEE RESULT BELOW 26 Anaerobic Culture SEE RESULT BELOW 27 Laboratory test 10/13/2015 [facility] Wound Culture/Sensi SEE RESULT [address] [place] [place], [place] [address] [phone] Tissue (BX) Culture & Gram St SEE RESULT BELOW 29 MRSA/S. aureus Ssti PCR SEE RESULT BELOW 30 Anaerobic Culture SEE RESULT BELOW 31 Laboratory test 10/13/2015 [facility] Wound Culture/Sensi SEE RESULT [address] [place] [address] [phone] Tissue (BX) Culture & Gram St SEE RESULT BELOW 33 MRSA/S. aureus Ssti PCR SEE RESULT BELOW 34 Anaerobic Culture SEE RESULT BELOW 35 Laboratory test 10/13/2015 [facility] Mycobacterial See Comment N [address] [place] [address] [phone] 1 Because ethnic data is not always [...] Result [id number] Called to GONSALO at: 13:25:55 by:[id number] Read back by: GONSALO 4 SEE RESULT BELOW Name: PRICE GUARDADO : [address]: Jamar Pérez MD Acct: [id number] Unit: [id number] AGE: 62 Location: [facility] Re06/13/18 SEX: M Status: REG REF SPEC: [id number] GABO: 06/13/18-[address]: Jamar Pérez MD REQ: [id number] RECD: 06/13/18150 STATUS: COMP _ SOURCE: STOOL SPDESC: ORDERED: C. diff PCR Procedure Result Reported Site Stool Specimen Description Final 06/13/18- 1609 ML Stool Color Brown Stool Form Formed Stool Consistency Hard C. difficile PCR Final 06/13/18- 1609 ML Test not performed * ML - Main Lab . END OF REPORT DEPARTMENT OF PATHOLOGY, [address] [place] [address] Vinayak Yanez M.D. Director [facility] # [id number] 5 Because ethnic data is not always [...] 5 Kidney failure <15 (or dialysis) 6 Lightout Examiner: [id number] 7 SEE RESULT BELOW Name: PRICE GUARDADO Arcenio : [address]: Jose Juan King MD Acct: [id number] Unit: [id number] AGE: 62 Location: [place] Re04/24/18 SEX: M Status: [facility] SPEC: [id number] GABO: 04/24/18- [facility] DR: Jose Juan King MD REQ: [id number] RECD: 04/24/18 STATUS: SOUT _ ORDERED: [facility], LEVEL 4 FINAL DIAGNOSIS Left great toe, [...] 1052 END OF REPORT DEPARTMENT OF PATHOLOGY, [address] [place] [address] Vinayak Yanez M.D. Director [facility] # [id number] 8 Lightout Examiner: [id number] 9 Lightout Examiner: [id number] 10 Lightout Examiner: [id number] 11 Because ethnic data is not always [...] (or dialysis) 18 Acute inflammation: >10.00 19 Lightout Examiner: [id number] FERNANDO PETTIT 20 SEE RESULT BELOW Name: PRICE GUARDADO : [address]: Jessie Lazar MD Acct: [id number] Unit: [id number] AGE: 60 Location: [facility] Re10/13/15 SEX: M Status: REG SDC SPEC: [id number] GABO: 10/13/15-[address] [facility] [address]: Jessie Lazar MD REQ: [id number] RECD: 10/13/15407 STATUS: RES [facility] DR: Gabbie Shell MD _ SOURCE: WOUND [...] Direct PENDING * ML - MAIN LAB ([facility]) . END OF REPORT * ML=Testing performed at Main Lab DEPARTMENT OF PATHOLOGY, [address] [place] [address] Vinayak aYnez M.D. Director [facility] # [id number] 21 SEE RESULT BELOW Name: PRICE GUARDADO : [address]: Jessie Lazar MD Acct: [id number] Unit: [id number] AGE: 60 Location: [facility] 338-01 Re10/13/15 Dis: 10/19/15 SEX: M Status: DIS IN SPEC: [id number] GABO: 10/13/15-[address] [facility] [address]: Jessie Lazar MD REQ: [id number] RECD: 10/13/15 STATUS: RES OTHR DR: Gabbie Shell MD _ SOURCE: WOUND SPDESC:KNEE LEFT ORDERED: Tissue Cult/GS/R, Fungal - Other/R, Acid Fast Stain/U COMMENTS: CLOSTRIDIUM FINDINGS IN ADDITION TO S. AUREUS: Verbal to DR. SHELL by [id number] at 1411 on 10/15/15. Results read back [...] performed at Main Lab DEPARTMENT OF PATHOLOGY, [address] [place] [address] Vinayak Yanez M.D. Director [facility] # [id number] Patient: PRICE GUARDADO [id number] (Continued) Specimen: [id number] Collected: 10/13/15-1639 Received: 10/13/15 (Continued) Procedure Result Reported Site Acid Fast Stain - Direct Final (continued) 10/14/15- 817 Due to limited sensitivity of the smear, results should be used as an adjunct in evaluating the patient's status and cultural examination is highly recommended for diagnosis. * ML - MAIN LAB ([facility]) . END OF REPORT * ML=Testing performed at Main Lab DEPARTMENT OF PATHOLOGY, [address] [place] [address] Vinayak Yanez M.D. Director [facility] # [id number] 22 SEE RESULT BELOW Name: PRICE GUARDADO : [address]: Jessie Lazar MD Acct: [id number] Unit: [id number] AGE: 60 Location: [place] [address] Re10/13/15 SEX: M Status: ADM IN SPEC: [id number] GABO: 10/13/15-[address] [facility] [address]: Jessie Lazar MD REQ: [id number] RECD: 10/13/15 STATUS: RES OTHR DR: Gabbie Shell MD _ SOURCE: WOUND SPDESC:KNEE LEFT ORDERED: Anaerobic Cult/R, MRSA/SA SSTI/R, Culture Stain/R, Fungal - Other /R, Acid Fast Stain/U COMMENTS: Verbal to GEMINI REYES CAMMY by [id number] at 2020 on 10/13/15. Results read back [...] performed at Main Lab DEPARTMENT OF PATHOLOGY, [address] [place] [address] Vinayak Yanez M.D. Director [facility] # [id number] Patient: PRICE GUARDADO [id number] (Continued) Specimen: [id number] Collected: 10/13/15 Received: 10/13/15 (Continued) Procedure Result Reported Site Acid Fast Stain - Direct Final (continued) 10/14/15 82 Due to limited sensitivity of the smear, results should be used as an adjunct in evaluating the patient's status and cultural examination is highly recommended for diagnosis. * ML - MAIN LAB ([facility]) . END OF REPORT * ML=Testing performed at Main Lab DEPARTMENT OF PATHOLOGY, [address] [place] [address] Vinayak Yanez M.D. Director [facility] # [id number] 23 SEE RESULT BELOW Name: PRICE GUARDADO : [address]: Jessie Lazar MD Acct: [id number] Unit: [id number] AGE: 60 Location: [facility] 338-01 Re10/13/15 Dis: 10/19/15 SEX: M Status: DIS IN SPEC: [id number] GABO: 10/13/15-[address] [facility] [address]: Jessie Lazar MD REQ: [id number] RECD: 10/13/15 STATUS: RES OTHR DR: Gabbie Shell MD _ SOURCE: WOUND SPDESC:KNEE LEFT ORDERED: Anaerobic Cult/R, MRSA/SA SSTI/R, Culture Stain/R, Fungal - Other /R, Acid Fast Stain/U COMMENTS: Verbal to GEMINI CHAWLA by [id number] at 2020 on 10/13/15. Results read back accurately. CLOSTRIDIUM FINDINGS IN ADDITION TO S. AUREUS: Verbal to DR. SHELL by [id number] at 1411 on 10/15/15. Results read back [...] performed at Main Lab DEPARTMENT OF PATHOLOGY, [address] [place] [address] Vinayak Yanez M.D. Director [facility] # [id number] Patient: PRICE GUARDADO [id number] (Continued) Specimen: [id number] Collected: 10/13/15 Received: 10/13/15 (Continued) Procedure Result [...] These antibiotics are not available in the [facility] Formulary Contact the Microbiology Department for any additional antibiotic reporting. Fungal Cult - Other Sources Preliminary 10/24/15- 1325 ML Fungal Culture No Growth of Mycotic Organisms 1 week Acid Fast Stain - Direct Final 10/14/15- 0810 ML CONTINUED ON NEXT PAGE * ML=Testing performed at Main Lab DEPARTMENT OF PATHOLOGY, [address] [place] [address] Vinayak Yanez M.D. Director [facility] # [id number] Patient: PRICE GUARDADO [id number] (Continued) Specimen: [id number] Collected: 10/13/15-1639 Received: 10/13/15 (Continued) Procedure Result [...] * ML - MAIN LAB ([facility]) . END OF REPORT * ML=Testing performed at Main Lab DEPARTMENT OF PATHOLOGY, [address] [place] [address] Vinayak Yanez M.D. Director [facility] # [id number] 24 SEE RESULT BELOW Name: PRICE GUARDADO : [address]: Jessie Lazar MD Acct: [id number] Unit: [id number] AGE: 60 Location: [facility] Re10/13/15 SEX: M Status: REG SDC SPEC: [id number] GABO: 10/13/15-[address] [facility] [address]: Jessie Lazar MD REQ: [id number] RECD: 10/13/15 STATUS: RES OTHR DR: Gabbie [...] Direct PENDING * ML - MAIN LAB ([facility]) . END OF REPORT * ML=Testing performed at Main Lab DEPARTMENT OF PATHOLOGY, [address] [place] [address] Vinayak Yanez M.D. Director [facility] # [id number] 25 SEE RESULT BELOW Name: PRICE GUARDADO : [address]: Jessie Lazar MD Acct: [id number] Unit: [id number] AGE: 60 Location: [place] [address]- Re10/13/15 Dis: 10/19/15 SEX: M Status: DIS IN SPEC: [id number] GABO: 10/13/15-[address] [facility] [address]: Jessie Lazar MD REQ: [id number] RECD: 10/13/15-240 STATUS: RES OTHR DR: Gabbie Shell MD _ SOURCE: WOUND SPDESC:KNEE LEFT ORDERED: Tissue Cult/GS/R, Fungal - Other/R, Acid Fast Stain/U COMMENTS: CLOSTRIDIUM FINDINGS IN ADDITION TO S. AUREUS: Verbal to DR. SHELL by [id number] at 1411 on 10/15/15. Results read back [...] performed at Main Lab DEPARTMENT OF PATHOLOGY, [address] [place] [address] Vinayak Yanez M.D. Director [facility] # [id number] Patient: PRICE GUARDADO [id number] (Continued) Specimen: [id number] Collected: 10/13/15-1639 Received: 10/13/15 (Continued) Procedure Result Reported Site Acid Fast Stain - Direct Final (continued) 10/14/15817 Due to limited sensitivity of the smear, results should be used as an adjunct in evaluating the patient's status and cultural examination is highly recommended for diagnosis. * ML - MAIN LAB ([facility]) . END OF REPORT * ML=Testing performed at Main Lab DEPARTMENT OF PATHOLOGY, [address] [place] [address] Vinayak Yanez M.D. Director [facility] # [id number] 26 SEE RESULT BELOW Name: PRICE GUARDADO Arcenio : [address]: Jessie Lazar MD Acct: [id number] Unit: [id number] AGE: 60 Location: [place] [address] Re10/13/15 SEX: M Status: ADM IN SPEC: [id number] GABO: 10/13/15-[address] [facility] [address]: Jessie Lazar MD REQ: [id number] RECD: 10/13/15 STATUS: RES OTHR DR: Gabbie Shell MD _ SOURCE: WOUND SPDESC:KNEE LEFT ORDERED: Anaerobic Cult/R, MRSA/SA SSTI/R, Culture Stain/R, Fungal - Other /R, Acid Fast Stain/U COMMENTS: Verbal to GEMINI CHAWLA by [id number] at 2020 on 10/13/15. Results read back [...] performed at Main Lab DEPARTMENT OF PATHOLOGY, [address] [place] [address] Vinayak Yanez M.D. Director [facility] # [id number] Patient: PRICE GUARDADO [id number] (Continued) Specimen: [id number] Collected: 10/13/15-1639 Received: 10/13/15 (Continued) Procedure Result Reported Site Acid Fast Stain - Direct Final (continued) 10/14/15809 Due to limited sensitivity of the smear, results should be used as an adjunct in evaluating the patient's status and cultural examination is highly recommended for diagnosis. * ML - MAIN LAB ([facility]) . END OF REPORT * ML=Testing performed at Main Lab DEPARTMENT OF PATHOLOGY, [address] [place] [address] Vinayak Yanez M.D. Director [facility] # [id number] 27 SEE RESULT BELOW Name: PRICE GUARDADO : [address]: Jessie Lazar MD Acct: [id number] Unit: [id number] AGE: 60 Location: [facility] 338-01 Re10/13/15 Dis: 10/19/15 SEX: M Status: DIS IN SPEC: [id number] GABO: 10/13/15-[address] [facility] [address]: Jessie Lazar MD REQ: [id number] RECD: 10/13/15 STATUS: RES OTHR DR: Gabbie Shell MD _ SOURCE: WOUND SPDESC:KNEE LEFT ORDERED: Anaerobic Cult/R, MRSA/SA SSTI/R, Culture Stain/R, Fungal - Other /R, Acid Fast Stain/U COMMENTS: Verbal to GEMINI CHAWLA by [id number] at 2020 on 10/13/15. Results read back accurately. CLOSTRIDIUM FINDINGS IN ADDITION TO S. AUREUS: Verbal to DR. SHELL by [id number] at 1411 on 10/15/15. Results read back [...] performed at Main Lab DEPARTMENT OF PATHOLOGY, [address] [place] [address] Vinayak Yanez M.D. Director [facility] # [id number] Patient: PRICE GUARDADO [id number] (Continued) Specimen: [id number] Collected: 10/13/15-1639 Received: 10/13/151754 (Continued) Procedure Result Reported Site Wound/Misc Culture [...] These antibiotics are not available in the [facility] Formulary Contact the Microbiology Department for any additional antibiotic reporting. Fungal Cult - Other Sources Preliminary 10/31/15- 144 ML Fungal Culture No Growth of Mycotic Organisms 2 weeks Acid Fast Stain - Direct Final 10/14/15809 ML CONTINUED ON NEXT PAGE * ML=Testing performed at Main Lab DEPARTMENT OF PATHOLOGY, [address] [place] [address] Vinayak Yanez M.D. Director [facility] # [id number] Patient: PRICE GUARDADO [id number] (Continued) Specimen: [id number] Collected: 10/13/15 Received: 10/13/15 (Continued) Procedure Result [...] * ML - MAIN LAB ([facility]) . END OF REPORT * ML=Testing performed at Main Lab DEPARTMENT OF PATHOLOGY, [address] [place] [address] Vinayak Yanez M.D. Director [facility] # [id number] 28 SEE RESULT BELOW Name: PRICE GUARDADO : [address]: Jessie Lazar MD Acct: [id number] Unit: [id number] AGE: 60 Location: [facility] Re10/13/15 SEX: M Status: REG SDC SPEC: [id number] GABO: 10/13/15-[address] [facility] [address]: Jessie Lazar MD REQ: [id number] RECD: 10/13/15 STATUS: RES OT DR: Gabbie [...] Direct PENDING * ML - MAIN LAB ([facility]) . END OF REPORT * ML=Testing performed at Main Lab DEPARTMENT OF PATHOLOGY, [address] [place] [address] Vinayak Yanez M.D. Director [facility] # [id number] 29 SEE RESULT BELOW Name: PRICE GUARDADO : [address]: Jessie Lazar MD Acct: [id number] Unit: [id number] AGE: 60 Location: [facility] 338-01 Re10/13/15 Dis: 10/19/15 SEX: M Status: DIS IN SPEC: [id number] GABO: 10/13/15-[address] [facility] [address]: Jessie Lazar MD REQ: [id number] RECD: 10/13/15 STATUS: RES OTHR DR: Gabbie Shell MD _ SOURCE: WOUND SPDESC:KNEE LEFT ORDERED: Tissue Cult/GS/R, Fungal - Other/R, Acid Fast Stain/U COMMENTS: CLOSTRIDIUM FINDINGS IN ADDITION TO S. AUREUS: Verbal to DR. SHELL by [id number] at 1411 on 10/15/15. Results read back [...] performed at Main Lab DEPARTMENT OF PATHOLOGY, [address] [place] [address] Vinayak Yanez M.D. Director [facility] # [id number] Patient: PRICE GUARDADO [id number] (Continued) Specimen: [id number] Collected: 10/13/15-1639 Received: 10/13/15-175 (Continued) Procedure Result Reported Site Acid Fast Stain - Direct Final (continued) 10/14/15- 817 Due to limited sensitivity of the smear, results should be used as an adjunct in evaluating the patient's status and cultural examination is highly recommended for diagnosis. * ML - MAIN LAB ([facility]) . END OF REPORT * ML=Testing performed at Main Lab DEPARTMENT OF PATHOLOGY, [address] [place] [address] Vinayak Yanez M.D. Director [facility] # [id number] 30 SEE RESULT BELOW Name: PRICE GUARDADO : [address]: Jessie Lazar MD Acct: [id number] Unit: [id number] AGE: 60 Location: [facility] 338-01 Re10/13/15 SEX: M Status: ADM IN SPEC: [id number] GABO: 10/13/15-[address] [facility] [address]: Jessie Lazar MD REQ: [id number] RECD: 10/13/15 STATUS: RES OTHR DR: Gabbie Shell MD _ SOURCE: WOUND SPDESC:KNEE LEFT ORDERED: Anaerobic Cult/R, MRSA/SA SSTI/R, Culture Stain/R, Fungal - Other /R, Acid Fast Stain/U COMMENTS: Verbal to GEMINI CHAWLA by [id number] at 2020 on 10/13/15. Results read back [...] performed at Main Lab DEPARTMENT OF PATHOLOGY, [address] [place] [address] Vinayak Yanez M.D. Director [facility] # [id number] Patient: PRICE GUARDADO [id number] (Continued) Specimen: [id number] Collected: 10/13/15 Received: 10/13/15175 (Continued) Procedure Result Reported Site Acid Fast Stain - Direct Final (continued) 10/14/15- 08 Due to limited sensitivity of the smear, results should be used as an adjunct in evaluating the patient's status and cultural examination is highly recommended for diagnosis. * ML - MAIN LAB ([facility]) . END OF REPORT * ML=Testing performed at Main Lab DEPARTMENT OF PATHOLOGY, [address] [place] [address] Vinayak Yanez M.D. Director [facility] # [id number] 31 SEE RESULT BELOW Name: BARI GUARDADOCHERYL Rg : [address]: Jessie Lazar MD Acct: [id number] Unit: [id number] AGE: 60 Location: [facility] 338-01 Re10/13/15 Dis: 10/19/15 SEX: M Status: DIS IN SPEC: [id number] GABO: 10/13/15-Jimmie RANKIN DR: Jessie Lazar MD REQ: [id number] RECD: 10/13/15 STATUS: RES OTHR DR: Gabbie Shell MD _ SOURCE: WOUND SPDESC:KNEE LEFT ORDERED: Anaerobic Cult/R, MRSA/SA SSTI/R, Culture Stain/R, Fungal - Other /R, Acid Fast Stain/U COMMENTS: Verbal to [facility]INI [facility] by [id number] at 2020 on 10/13/15. Results read back accurately. CLOSTRIDIUM FINDINGS IN ADDITION TO S. AUREUS: Verbal to DR. SHELL by [id number] at 1411 on 10/15/15. Results read back [...] performed at Main Lab DEPARTMENT OF PATHOLOGY, [address] [place] [address] Vinayak Yanez M.D. Director [facility] # [id number] Patient: PRICE GUARDADO Arcenio [id number] (Continued) Specimen: [id number] Collected: 10/13/15 Received: 10/13/15 (Continued) Procedure Result Reported Site Wound/Misc Culture Final (continued) 10/15/15 46 Organism 1 STAPHYLOCOCCUS AUREUS Quantity 3+ [...] These antibiotics are not available in the [facility] Formulary Contact the Microbiology Department for any additional antibiotic reporting. Fungal Cult - Other Sources Preliminary 11/07/15- 1229 ML Fungal Culture No Growth of Mycotic Organisms 3 weeks Acid Fast Stain - Direct Final 10/14/15- 0810 ML CONTINUED ON NEXT PAGE * ML=Testing performed at Main Lab DEPARTMENT OF PATHOLOGY, [address] [place] [address] Vinayak Yanez M.D. Director [facility] # [id number] Patient: PRICE GUARDADO [id number] (Continued) Specimen: [id number] Collected: 10/13/15-1640 Received: 10/13/15-1754 (Continued) Procedure Result Reported Site Acid Fast Stain - Direct Final (continued) 10/14/15809 AFB Smear Result No Acid Fast Bacillus Present (Negative) Preparation By Direct Smear Due to limited sensitivity of the smear, results should be used as an adjunct in evaluating the patient's status and cultural examination is highly recommended for diagnosis. * ML - MAIN LAB ([facility]) . END OF REPORT * ML=Testing performed at Main Lab DEPARTMENT OF PATHOLOGY, [address] [place] [address] Vinayak Yanez M.D. Director [facility] # [id number] 32 SEE RESULT BELOW Name: PRICE GUARDADO : [address]: Jessie Lazar MD Acct: [id number] Unit: [id number] AGE: 60 Location: SDS Re10/13/15 SEX: M Status: REG SDC SPEC: [id number] GABO: 10/13/15-[address] [facility] [address]: Jessie Lazar MD REQ: [id number] RECD: 10/13/15 STATUS: RES [facility] DR: Gabbie Shell MD _ SOURCE: WOUND [...] * ML - MAIN LAB ([facility]) . END OF REPORT * ML=Testing performed at Main Lab DEPARTMENT OF PATHOLOGY, [address] [place] [address] Vinayak Yanez M.D. Director [facility] # [id number] 33 SEE RESULT BELOW Name: PRICE GUARDADO : [address]: Jessie Lazar MD Acct: [id number] Unit: [id number] AGE: 60 Location: [facility] 338-01 Re10/13/15 Dis: 10/19/15 SEX: M Status: DIS IN SPEC: [id number] GABO: 10/13/15-[address] [facility] [address]: Jessie Lazar MD REQ: [id number] RECD: 10/13/15268 STATUS: COMP TERRANCE DR: Gabbie [place] MD _ SOURCE: WOUND SPDESC:KNEE LEFT ORDERED: Tissue Cult/GS/R, Fungal - Other/R, Acid Fast Stain/U COMMENTS: CLOSTRIDIUM FINDINGS IN ADDITION TO S. AUREUS: Verbal to DR. SHELL by [id number] at 1411 on 10/15/15. Results read back [...] performed at Main Lab DEPARTMENT OF PATHOLOGY, [address] [place] [address] Vinayak Yanez M.D. Director [facility] # [id number] Patient: PRICE GUARDADO [id number] (Continued) Specimen: [id number] Collected: 10/13/15 Received: 10/13/15 (Continued) Procedure Result Reported Site Acid Fast Stain - Direct Final (continued) 10/14/15817 Due to limited sensitivity of the smear, results should be used as an adjunct in evaluating the patient's status and cultural examination is highly recommended for diagnosis. * ML - MAIN LAB ([facility]) . END OF REPORT * ML=Testing performed at Main Lab DEPARTMENT OF PATHOLOGY, [address] [place] [address] Vinayak Yanez M.D. Director [facility] # [id number] 34 SEE RESULT BELOW Name: DEBBYPRICE : [address]: Jessie Lazar MD Acct: [id number] Unit: [id number] AGE: 60 Location: [place] [address]- Re10/13/15 SEX: M Status: ADM IN SPEC: [id number] GABO: 10/13/15-[address] [facility] [address]: Jessie Lazar MD REQ: [id number] RECD: 10/13/15659 STATUS: RES OTHR DR: Gabbie Shell MD _ SOURCE: WOUND SPDESC:KNEE LEFT ORDERED: Anaerobic Cult/R, MRSA/SA SSTI/R, Culture Stain/R, Fungal - Other /R, Acid Fast Stain/U COMMENTS: Verbal to GEMINI CHAWLA by [email or web address] at 2020 on 10/13/15. Results read back [...] performed at Main Lab DEPARTMENT OF PATHOLOGY, [address] [place] [address] Vinayak Yanez M.D. Director [facility] # [id number] Patient: PRICE GUARDADO [id number] (Continued) Specimen: [id number] Collected: 10/13/15-1639 Received: 10/13/15 (Continued) Procedure Result Reported Site Acid Fast Stain - Direct Final (continued) 10/14/15809 Due to limited sensitivity of the smear, results should be used as an adjunct in evaluating the patient's status and cultural examination is highly recommended for diagnosis. * ML - MAIN LAB ([facility]) . END OF REPORT * ML=Testing performed at Main Lab DEPARTMENT OF PATHOLOGY, [address] [place] [address] Vinayak Yanez M.D. Director [facility] # [id number] 35 SEE RESULT BELOW Name: PRICE GUARDADO Arcenio : [address]: Jessie Lazar MD Acct: [id number] Unit: [id number] AGE: 60 Location: [facility] 338-01 Re10/13/15 Dis: 10/19/15 SEX: M Status: DIS IN SPEC: [id number] GABO: 10/13/15-[address]: Jessie Lazar MD REQ: [id number] RECD: 10/13/15 STATUS: DOLORES CARLOS DR: Gabbie Shell MD _ SOURCE: WOUND SPDESC:KNEE LEFT ORDERED: Anaerobic Cult/R, MRSA/SA SSTI/R, Culture Stain/R, Fungal - Other /R, Acid Fast Stain/U COMMENTS: Verbal to GEMINI CHAWLA by [id number] at 2020 on 10/13/15. Results read back accurately. CLOSTRIDIUM FINDINGS IN ADDITION TO S. AUREUS: Verbal to DR. SHELL by [id number] at 1411 on 10/15/15. Results read back [...] performed at Main Lab DEPARTMENT OF PATHOLOGY, [address] [place] [address] Vinayak Yanez M.D. Director [facility] # [id number] Patient: PRICE GUARDADO [id number] (Continued) Specimen: [id number] Collected: 10/13/15-1639 Received: 10/13/15 (Continued) Procedure Result [...] These antibiotics are not available in the [facility] Formulary Contact the Microbiology Department for any additional antibiotic reporting. Fungal Cult - Other Sources Final 11/14/15- 1427 ML Fungal Culture No Growth of Mycotic Organisms 4 weeks Acid Fast Stain - Direct Final 10/14/15- 0810 ML CONTINUED ON NEXT PAGE * ML=Testing performed at Main Lab DEPARTMENT OF PATHOLOGY, [address] [place] [address] Vinayak Yanez M.D. Director [facility] # [id number] Patient: PRICE GUARDADO [id number] (Continued) Specimen: [id number] Collected: 10/13/15 Received: 10/13/15 (Continued) Procedure Result Reported Site Acid Fast Stain - Direct Final (continued) 10/14/15809 AFB Smear Result No Acid Fast Bacillus Present (Negative) Preparation By Direct Smear Due to limited sensitivity of the smear, results should be used as an adjunct in evaluating the patient's status and cultural examination is highly recommended for diagnosis. * ML - [facility] ([facility]) . END OF REPORT * ML=Testing performed at Main Lab DEPARTMENT OF PATHOLOGY, [address] [place] [address] Vinayak Yanez M.D. Director [facility] # [id number] 36 SOURCE: KNEE, KNEE WOUND SWAB MYCOBACTERIAL CULTURE FINAL No growth after 60 days of incubation. Test Performed by: [place] [address] [employer]: Cam Isidro II, M.D., Ph.D. Procedures Date Code Description Status 05/29/2018 23062 Incision Bone Cortex Foot Completed 05/29/2018 69101 Layer Closure Of Wounds 2.6CM - 7.5CM Completed Neck,Hands,Feet,Genitalia 05/29/2018 84425 Layer Closure Of Wounds 2.6CM - 7.5CM Completed Neck,Hands,Feet,Genitalia 05/29/2018 48211 Debridement Tissue/Muscle/Bone Completed 05/27/2018 04004 EKG, Interpretation Only Completed 04/24/2018 34746 Amputation,Toe;Interphalangeal Joint Completed 04/24/2018 21264 Amputation,Toe;Interphalangeal Joint Completed 04/24/2018 55623 Amputation,Toe;Interphalangeal Joint Completed 04/24/2018 08970 Amputation,Toe;Interphalangeal Joint Completed 04/24/2018 30955 Amputation,Toe;Interphalangeal Joint Completed 04/18/2018 70719 Revascularization,Endovascular W/Atherectomy, Inc Completed Angioplasty 04/18/2018 08280 Revascularization,Endovascular W/Atherectomy, Inc Completed Angioplasty 04/18/2018 65154 Angio Extremity, Bilateral Completed 04/18/2018 32120 Ultrasound Guidance For Vascular Access Completed 04/18/2018 42000 Moderate Sedation Services; Same Phys Intl 15 Mins; PT >=5 Completed Years 04/18/2018 35010 Moderate Sedation Services; Same Phys Each Additional 15 Completed Mins 12/10/2016 73361 ECHO Transthorasic Realtime 2D W Doppler & Color Flow Hosp Completed 12/09/2016 06596 EKG, Interpretation Only Completed 01/10/2016 36358 Treadmill Interp/Report Only Completed 01/10/2016 01675 Stress Test Supervsn W/Out I/R Completed 10/15/2015 60553 Arthroscopy,Knee For Infection,Lavage & Drainage Completed 10/15/2015 86509 Arthroscopy,Knee For Infection,Lavage & Drainage Completed 10/15/2015 84634 Arthroscopy,Knee For Infection,Lavage & Drainage Completed 10/15/2015 88270 Arthroscopy,Knee For Infection,Lavage & Drainage Completed 10/13/2015 12673 Arthroscopy,Knee,Meniscectomy Medial Or Lateral Completed 10/13/2015 58266 Arthroscopy,Knee,Meniscectomy Medial Or Lateral Completed 10/13/2015 74789 Arthroscopy,Knee For Infection,Lavage & Drainage Completed 05/18/2013 45339 EEG Recording Awake & Asleep Completed 03/13/2013 66294 Color Flow Doppler/Interp & Reprt Completed 03/13/2013 95409 Pulse Wave/Continuous-Interp.RPT Completed 03/13/2013 70495 Echocardiography, Transesophageal, Real Time W/Image 2D Completed W/W/O M-M Encounters Type Date Location Provider Dx Diagnosis Office Visit 09/22/2018 [facility] Joe Ramírez, R29.818 Other symptoms 11:16a Assoctrevor M.D. and signs Hospitalists involving the nervous system E11.9 Type 2 diabetes mellitus without complications I10 Essential (primary) hypertension Office Visit 09/09/2018 9:54a [facility] [place], J18.9 Pneumonia, Assoc,pc [employer] unspecified Hospitalists organism K31.84 Gastroparesis A41.9 Sepsis, unspecified organism L02.211 Cutaneous abscess of abdominal wall N17.9 Acute kidney failure, unspecified E11.9 Type 2 diabetes mellitus without complications I73.9 Peripheral vascular disease, unspecified F32.9 Major depressive disorder, single episode, unspecified Office Visit 09[facility]07/2018 [facility] J18.9 Pneumonia, 9:54a Assoc,trevor Hope, [employer] unspecified Hospitalists organism R11.2 Nausea with vomiting, unspecified R10.11 Right upper quadrant pain L02.211 Cutaneous abscess of abdominal wall N17.9 Acute kidney failure, unspecified E11.9 Type 2 diabetes mellitus without complications I10 Essential (primary) hypertension F32.9 Major depressive disorder, single episode, unspecified Z86.79 Personal history of other diseases of the circulatory system Office Visit 07/25/2018 4:25p Braxton Bautista I70.212 [facility] Pal Mahan M.D. arteries of extrm w intrmt romelia, left leg Office Visit 07/23/2018 12:30p Braxton Bautista I70.222 [facility] [place] [facility] Pal Mahan M.D. arteries of extremities w rest pain, left leg Office Visit 06/16/2018 1:20p [facility] Madalyn Jordan T87.44 Infection of Infectious [place], amputation stump, Diseases M.D. left lower extremity T81.31xA Disruption of external operation (surgical) wound, NEC, init I73.9 Peripheral vascular disease, unspecified Z79.2 [facility] (current) use of antibiotics R19.7 Diarrhea, unspecified E11.51 Type 2 diabetes w diabetic 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 E11.69 Type 2 diabetes mellitus with other specified complication Office Visit 06/04/2018 1:00p [facility] Madalyn Jordan T87.44 Infection of Infectious Ricky MAdriannaD. 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 T81.31xD Disruption of 2:51p Assoc,trevor Bradley, external Hospitalists [employer] operation (surgical) wound, NEC, subs F32.9 Major depressive disorder, single episode, unspecified N17.9 Acute kidney failure, unspecified E11.9 Type 2 diabetes mellitus without complications I73.9 Peripheral vascular disease, unspecified Office Visit 06/02/2018 [facility] T81.31xD Disruption of 2:50p Assoc,trevor Bradley, external Hospitalists [employer] operation (surgical) wound, NEC, subs F32.9 Major depressive disorder, single episode, unspecified N17.9 Acute kidney failure, unspecified E11.9 Type 2 diabetes mellitus without complications I73.9 Peripheral vascular disease, unspecified Office Visit 06/01/2018 [facility] T81.31xD Disruption of 2:50p Asstrevor kumar, external Hospitalists [employer] operation (surgical) wound, NEC, subs F32.9 Major depressive disorder, single episode, unspecified N17.9 Acute kidney failure, unspecified E11.9 Type 2 diabetes mellitus without complications I73.9 Peripheral vascular disease, unspecified Office Visit 05/31/2018 [facility] T81.31xA Disruption of 2:50p trevor Jackson, external Hospitalists [employer] operation (surgical) wound, NEC, init F32.9 Major depressive disorder, single episode, unspecified N17.9 Acute kidney failure, unspecified E11.9 Type 2 diabetes mellitus without complications I73.9 Peripheral vascular disease, unspecified Office Visit 05/30/2018 [facility] T81.31xD Disruption of 2:49p trevor Jackson NP external Hospitalists operation (surgical) wound, NEC, subs I73.9 Peripheral vascular disease, unspecified E11.9 Type 2 diabetes mellitus without complications Office Visit 05/29/2018 [facility] T81.31xD Disruption of 2:49p trevor Jackson NP external Hospitalists operation (surgical) wound, NEC, subs N17.9 Acute kidney failure, unspecified I73.9 Peripheral vascular disease, unspecified E11.9 Type 2 diabetes mellitus without complications Office Visit 05/28/2018 12:39p [facility] Madalyn Jordan T87.81 Dehiscence of Infectious Gabrielle Pérez amputation stump Diseases T87.44 Infection of amputation stump, left lower extremity 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 ankle and foot Office Visit 04/19/2018 [facility] Jose Juan King, Z47.89 Encounter for other 9:33a Services Of orthopedic C.M.A. aftercare Office Visit 04/19/2018 [facility] Sami Nicholson MD L97.513 Non-prs chronic 11:31a Assoctrevor ulcer oth prt right Hospitalists foot w necros muscle 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 I73.9 Peripheral vascular disease, unspecified Office Visit 04/18/2018 11:30a [facility] L97.513 Non-prs Assoc,SAIDA Alvarado chronic ulcer Hospitalists oth prt right foot w necros muscle 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 I73.9 Peripheral vascular disease, unspecified F32.9 Major depressive disorder, single episode, unspecified G25.0 Essential tremor Office Visit 04/17/2018 11:30a [facility] Joe L97.513 Non-prs Assoc,pc Gabrielle Ramírez chronic ulcer Hospitalists oth prt right foot w necros muscle 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 Office Visit 04/16/2018 1:09p [facility] Steffanie I73.9 Peripheral Assoc,pc Suzie Bradley, vascular disease, Hospitalists [employer] unspecified E11.51 Type 2 diabetes w diabetic 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 Office Visit 04/16/2018 9:11a [facility] Bautista I70.213 [facility] [place] [facility] Gabrielle Mahan arteries of extrm w intrmt romelia, bi legs M87.878 Other osteonecrosis, left toe(s) Office Visit 04/15/2018 2:11p [facility] Jyoti Mcdaniels, M87.078 [facility] aseptic necrosis C.M.A. of left toe(s) L03.032 Cellulitis of left toe Office Visit 04/15/2018 11:29a [facility] Michelle Siu L97.513 Non- prs Assoc,pc DO chronic ulcer Hospitalists oth prt right foot w necros muscle E11.9 Type 2 diabetes mellitus without complications F32.9 Major depressive disorder, single episode, unspecified Office Visit 04/15/2018 12:44p [facility] Madalyn Jordan E11.52 Type 2 diabetes Infectious Gabrielle Pérez w diabetic Diseases peripheral angiopathy w gangrene Z86.73 Prsnl hx of TIA (TIA), and cereb infrc w/o resid deficits Office Visit 12/10/2016 [facility] Phoenix Valdes, G45.9 Transient 2:49p Clinic cerebral ischemic attack, unspecified Office Visit 12/10/2016 [facility] Tiffanie R07.2 Precordial pain 3:56p Assoc,pc Hospitalists MARJORIE Hope R55 Syncope and collapse E11.9 Type 2 diabetes mellitus without complications G45.9 Transient cerebral ischemic attack, unspecified Office 12/09/2016 [facility] Sae Major, G45.9 Transient Visit 1:48p Clinic Gabrielle cerebral ischemic attack, unspecified Office 12/09/2016 [facility] Orlin Junior R55 Syncope and Visit 3:55p Assoc,pc Malcolm LI M.D. collapse R07.2 Precordial pain E11.9 Type 2 diabetes mellitus without complications G45.9 Transient cerebral ischemic attack, unspecified Office Visit 01/10/2016 [facility] Sadie Joshi R07.9 Chest pain, 12:51p Assoc,trevor Tatum NP unspecified Hospitalists N17.9 Acute kidney failure, unspecified E11.9 Type 2 diabetes mellitus without complications I10 Essential (primary) hypertension Office Visit 01/09/2016 12:50p [facility] Estefanía Lewis, R07.9 Chest pain , Assoc,pc N.P. 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 arthritis, left Diseases knee L02.416 Cutaneous abscess of left lower limb Office Visit 10/19/2015 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 Sanchez M00.062 Staphylococcal 10:02a Assoc,trevor Shell M.D. 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 Sanchez M00.062 Staphylococcal 10:01a Asstrevor kumar M.D. 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 Sanchez M00.062 Staphylococcal 10:00a Asstrevor kumar M.D. 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 Sanchez M00.062 Staphylococcal 10:00a Asstrevor kumar M.D. 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 Nasima M00.062 Staphylococcal 9:59a Assoc,trevor Colmenares D.O. arthritis, left Hospitalists knee E11.8 Type 2 diabetes mellitus with unspecified complications Office Visit 10/13/2015 [facility] Tiffanie M00.062 Staphylococcal 9:58a Asstrevor kumar NP arthritis, left Hospitalists knee E11.8 Type [...] Neurologic Gabrielle Meadows Other Forms [facility] Office Visit 06/19/2013 Oscar Macario 437.9 Cerebrovascular 11:30a Neurologic Gabrielle Meadows Disease Or Lesion [facility] Unspec Office Visit 05/12/2013 [facility] Paul Macario 345.40 Local-Related 10:45a Neurologic Gabrielle Meadows Epilepsy W/O Mention [facility] Of Intractable Epilepsy 438.89 Cerebrovascular Disease Late Effect Other 331.83 Mild Cognitive Impairment So Stated Office Visit 03/13/2013 [place] Gaurang Bradford 435.9 TIA Ischemia 12:53p [facility] Gabrielle Warren Cerebral Transient Unspec Office Visit 03/13/2013 [facility] Nasima Colmenares, 784.51 Dysarthria 2:43p Assoc,pc D.O. Hospitalists 272.2 Hyperlipidemia Mixed 435.9 TIA Ischemia Cerebral Transient Unspec 305.1 Tobacco Use Disorder Office Visit 03/12/2013 [place] Gaurang Bradford 435.9 TIA Ischemia 12:52p [facility] Gabrielle Warren Cerebral Transient Unspec Office Visit 03/12/2013 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
[2018-11-03] MEDS ORDERED: Alteplase (CATHFLO)* 2 MG VIAL IV ONE (16:01)
--- NOTE | 2018-11-03 16:37 | ED ---
Skin Complaint - HPI Summary HPI Summary: Patient is a 63-year-old male with a PICC line to the right arm presenting to the ED with request for likely disolution of clot from PICC line occlusion. He states his visiting nurse attempted to place antibiotics this morning, but was unsuccessful and was told to come to the ED. He denies any pain to the arm. Denies any numbness or tingling. He states he is afebrile, has no other complaints on this date. He is receiving IV antibiotics for toe amputation secondary to osteomyelitis one month ago. - History of Current Complaint Time Seen by Provider: 11/03/18 15:15 Stated Complaint: GENERAL Hx Obtained From: Patient Onset/Duration: Started Hours Ago Skin Exposure Onset/Duration: Hours Ago Timing: Constant Onset Severity: Mild Current Severity: None Pain Scale Used: 0-10 Numeric Aggravating Symptom(s): Nothing Alleviating Symptom(s): Nothing Associated Signs & Symptoms: Negative - Additional Pertinent History Primary Care Physician: ARABELLA - Allergy/Home Medications Allergies/Adverse Reactions: Allergies Allergy/AdvReac Type Severity Reaction Status Date / Time No Known Allergies Allergy Verified 10/08/18 16:14 PMH/Surg Hx/FS Hx/Imm Hx Previously Healthy: Yes Endocrine/Hematology History: Reports: Hx Diabetes, Other Endocrine/ Hematological Disorders - ankylosing spondylitis Cardiovascular History: Reports: Hx Angina, Hx Coronary Artery Disease, Hx Hypercholesterolemia, Hx Hypertension, Hx Peripheral Vascular Disease, Other Cardiovascular Problems/Disorders Denies: Hx Pacemaker/ICD Respiratory History: Reports: Other Respiratory Problems/Disorders - PNEUMONIA- 07/2018-PATIENT STATES HAS RESOLVED Denies: Hx Asthma, Hx Chronic Obstructive Pulmonary Disease (COPD) GI History: Reports: Other GI Disorders - GASTRO PARESIS History: Denies: Hx Dialysis, Hx Renal Disease Musculoskeletal History: Reports: Hx Back Problems - spinal fusion, laminerctomy decompression, Hx Orthopedic Injury - septic arthritis left knee, Other Musculoskeletal History - LUMBAR FUSION Sensory History: Reports: Hx Contacts or Glasses - glasses Denies: Hx Hearing Aid Opthamlomology History: Reports: Hx Contacts or Glasses - glasses Neurological History: Reports: Hx Nerve Disease, Hx Seizures - reports last was 4 yrs ago - sees dr jenkins, Hx Spinal Cord Injury, Hx Transient Ischemic Attacks (TIA), Other Neuro Impairments/Disorders - essential tremors Denies: Hx Dementia Psychiatric History: Reports: Hx Depression - ON MEDICATION FOR, Hx Inpatient Treatment - in [facility] [place] [facility] 2009, Hx Suicide Attempt - SI/ATTEMPT 05/2010 Denies: Hx Anxiety, Hx Eating Disorder, Hx Panic Disorder, Hx of Violent Episodes Against Others - Surgical History Surgery Procedure, Year, and Place: [place] laminectomy 1970 [place] LSP fusion. carotid [place]artectomy [facility]. [place] [facility] [place]. T&[place]. left great toe amputation AND revascularization of left leg- no stents placed - 03/2018-[facility] [place] Hx Anesthesia Reactions: No - Immunization History Date of Tetanus Vaccine: Shot "within past ten years" Date of Influenza Vaccine: unk Hx Pertussis Vaccination: No Immunizations Up to Date: Yes Infectious Disease History: Reports: Hx of Known/Suspected MRSA Denies: Traveled Outside the [place] in Last 30 Days - Family History Known Family History: Positive: Diabetes - Social History Occupation: Unemployed Lives: With Family Alcohol Use: Rare Hx Substance Use: No Substance Use Type: Reports: Other Substance Use Comment - Amount & Last Used: uses cbd OILS daily FOR TREMORS Hx Tobacco Use: Yes Smoking Status (MU): Former Smoker Type: Cigarettes Amount Used/How Often: 1 ppd for 50 yrs Length of Time of Smoking/Using Tobacco: 40 years Have You Smoked in the Last Year: Yes Review of Systems Negative: Fever, Chills, Fatigue, Skin Diaphoresis Negative: Palpitations, Chest Pain Negative: Shortness Of Breath, Cough Genitourinary: Negative Positive: no symptoms reported, see HPI Negative: Arthralgia, Myalgia Skin: Negative Neurological: Negative All Other Systems Reviewed And Are Negative: Yes Physical Exam Triage Information Reviewed: Yes Vital Signs Reviewed: Yes Appearance: Positive: Well-Nourished Skin: Positive: Warm, Skin Color Reflects Adequate Perfusion, Other - PICC line in place Head/Face: Positive: Normal Head/Face Inspection Eyes: Positive: EOMI, [place] Neck: Positive: Supple, No Lymphadenopathy Respiratory/Lung Sounds: Positive: Clear to Auscultation, Breath Sounds Present Cardiovascular: Positive: RRR, Pulses are Symmetrical in both Upper and Lower Extremities Musculoskeletal: Positive: Normal, Strength/ROM Intact Neurological: Positive: Speech Normal Psychiatric: Positive: Normal, Affect/Mood Appropriate AVPU Assessment: Alert Course/Dx - Course Course Of Treatment: During the course of treatment, patient is evaluated for PICC line occlusion. unable to flush PICC line. Alteplase (cathflo) ordered and placed in for 30 minutes. - Diagnoses Provider Diagnoses: Occluded PICC line Discharge - Discharge Plan Condition: Stable Disposition: HOME Patient Education Materials: How to Flush Your PICC or Midline Catheter (ED) Referrals: Gabbie Shell MD [Primary Care Provider] - - Billing Disposition and Condition Condition: STABLE Disposition: Home
[2018-11-03 17:18] VITALS: BP 100/59
== END 2018-11-03 17:17 | disposition home or self-care (01) ==
LOC: ED 14:26
DX: T82.898A Other specified complication of vascular prosthetic devices, implants and grafts, initial encounter (principal); Z89.412 Acquired absence of left great toe; Z87.891 Personal history of nicotine dependence
CPT/HCPCS: 99282; J2997

== ENCOUNTER 2019-01-02 21:05 | Emergency (ER) | payer OTHER, MEDICARE ==
[~2019-01-02 21:05] MED LIST changes: -Buffered Lidocaine 0.9% SYRIN* 5 ML/SYR SYRINGE INTRADERM ONE; -Famotidine IV* 10 MG/ML 2 ML (20 mg) IV ONE; +Propofol* 10 MG/ML 100 ML BTL ONE
--- NOTE | 2019-01-02 21:38 | ED ---
Shortness of Breath - HPI Summary HPI Summary: A 63 y/o male brought in by [facility] ambulance presents to [facility] with a chief complaint of SOB today. The patient reports that he was fine during the week, other than his back pain, which he has been taking oxycodone for in order to alleviate his pain. He denies CP. At triage he rated his pain as a 0/10 in severity. He had a bad appetite today. He denies a Hx of breathing problems and does not take any inhaler medications. He is a former smoker, quitting in January 2018. Sitting up aggravates his pain and lying down alleviates his pain. Hx of DM. - History of Current Complaint Chief Complaint: EDShortnessOfBreath Time Seen by Provider: 01/02/19 21:13 Hx Obtained From: Patient Onset/Duration: Sudden Onset, Lasting Hours, Still Present Timing: Constant Current Severity: Mild Dyspnea At: Rest Aggrevating Factors: Other - sitting up Alleviating Factors: Other - positive: laying down Associated Signs & Symptoms: Negative - chest pain - Allergy/Home Medications Allergies/Adverse Reactions: Allergies Allergy/AdvReac Type Severity Reaction Status Date / Time No Known Allergies Allergy Verified 10/08/18 16:14 PMH/Surg Hx/FS Hx/Imm Hx Endocrine/Hematology History: Reports: Hx Diabetes, Other Endocrine/ Hematological Disorders - ankylosing spondylitis Cardiovascular History: Reports: Hx Angina, Hx Coronary Artery Disease, Hx Hypercholesterolemia, Hx Hypertension, Hx Peripheral Vascular Disease, Other Cardiovascular Problems/Disorders Denies: Hx Pacemaker/ICD Respiratory History: Reports: Other Respiratory Problems/Disorders - PNEUMONIA- 07/2018-PATIENT STATES HAS RESOLVED Denies: Hx Asthma, Hx Chronic Obstructive Pulmonary Disease (COPD) GI History: Reports: Other GI Disorders - GASTRO PARESIS History: Denies: Hx Dialysis, Hx Renal Disease Musculoskeletal History: Reports: Hx Back Problems - spinal fusion, laminerctomy decompression, Hx Orthopedic Injury - septic arthritis left knee, Other Musculoskeletal History - LUMBAR FUSION Sensory History: Reports: Hx Contacts or Glasses - glasses Denies: Hx Hearing Aid Opthamlomology History: Reports: Hx Contacts or Glasses - glasses Neurological History: Reports: Hx Nerve Disease, Hx Seizures - reports last was 4 yrs ago - sees dr jenkins, Hx Spinal Cord Injury, Hx Transient Ischemic Attacks (TIA), Other Neuro Impairments/Disorders - essential tremors Denies: Hx Dementia Psychiatric History: Reports: Hx Depression - ON MEDICATION FOR, Hx Inpatient Treatment - in [facility] [place] [facility] [place], Hx Suicide Attempt - SI/ATTEMPT 05/2010 Denies: Hx Anxiety, Hx Eating Disorder, Hx Panic Disorder, Hx of Violent Episodes Against Others - Surgical History Surgery Procedure, Year, and Place: [place] laminectomy 1970 - [place] LSP fusion. carotid [place]artectomy [facility]. [place] [facility] [place]. T&A. left great toe amputation AND revascularization of left leg- no stents placed - 03/2018[place] [place] Hx Anesthesia Reactions: No - Immunization History Date of Tetanus Vaccine: Shot "within past ten years" Date of Influenza Vaccine: unk Infectious Disease History: Reports: Hx of Known/Suspected MRSA - Family History Known Family History: Positive: Diabetes - Social History Alcohol Use: Rare Hx Substance Use: No Substance Use Type: Reports: Other Substance Use Comment - Amount & Last Used: uses cbd OILS daily FOR TREMORS Hx Tobacco Use: Yes Smoking Status (MU): Former Smoker Type: Cigarettes Amount Used/How Often: 1 ppd for 50 yrs Length of Time of Smoking/Using Tobacco: 40 years Have You Smoked in the Last Year: Yes Review of Systems Negative: Chest Pain Positive: Shortness Of Breath Positive: Myalgia - back pain All Other Systems Reviewed And Are Negative: Yes Physical Exam - Summary Physical Exam Summary: Appearance: Elderly male appearing somewhat short of breath, tachycardic and tachypnic Skin: Warm, dry, no obvious rash Eyes: sclera anicteric, no conjunctival pallor ENT: mucous membranes moist, pharynx appears normal Neck: Supple, nontender Respiratory: Clear to auscultation, tachypnic Cardiovascular: tachycardic, Normal S1, S2. No murmurs. Normal distal pulses in tibial and radial bilaterally. Abdomen: Soft, nontender, normal active bowel sounds present Musculoskeletal: Normal, Strength/ROM Intact, no swelling in either leg Neurological: A&Ox3, awake and alert, mentation is normal, speech is fluent and appropriate Psychiatric: affect is normal, does not appear anxious or depressed Triage Information Reviewed: Yes Vital Signs Reviewed: Yes Procedures - Intubation Time of Intubation: 03:10 - Patient has good breath sounds Progress/Xray Impression: The patient was Re-laryngoscoped and placement of tube was confirmed Diagnostics - Laboratory Result Diagrams: 01/02/19 21:45 01/02/19 21:45 Lab Statement: Any lab studies that have been ordered have been reviewed, and results considered in the medical decision making process. - Radiology CXR Radiology Interpretation Completed By: ED Physician Summary of Radiographic Findings: Diffuse increase in vascular and interstitial markings consistent with CHF. Pending official imaging report. second CXR Radiology Interpretation Completed By: ED Physician Summary of Radiographic Findings: No acute process. Pending official imaging report. third CXR Radiology Interpretation Completed By: ED Physician Summary of Radiographic Findings: Acute pulmonary edema. Pending official imaging report. - CT chest/thorax CTA CT Interpretation Completed By: Radiologist Summary of CT Findings: 1. No pulmonary emboli. 2. Multifocal pneumonia, pulmonary edema, acute hypersensitivity pneumonitis,. and pulmonary hemorrhage. The presence of enlarged lymph nodes favors. pneumonia. ED physician has reviewed this imaging report. - Ultrasound No standard instances Ultrasound Interpretation Completed By: Radiologist Summary of Ultrasound Findings: Venous doppler study impression: No bilateral lower extremity deep vein thrombosis. ED physician has reviewed this imaging report. - EKG 21:29 Cardiac Rate: Tachycardia - 113 bpm EKG Rhythm: Sinus Tachycardia Summary of EKG Findings: Sinus tachycardia at 113 bpm with borderline repolarization abnormality. 04:01 Cardiac Rate: Tachycardia - 120 bpm EKG Rhythm: Sinus Tachycardia Summary of EKG Findings: Sinus tachycardia at 120 bpm, no ischemia. Course/Dx - Course Course Of Treatment: A 63 y/o male brought in by [facility] ambulance presents to [facility] with a chief complaint of SOB today. The physical exam revealed that the patient was somewhat short of breath, tachycardic and tachypnic and had no edema in either leg. CXR impression: Diffuse increase in vascular and interstitial markings consistent with CHF. EKG showed Sinus tachycardia at 113 bpm with borderline repolarization abnormality. In the ED course the patient was given Azithromycin IV, Etomidate IV, Lasix IV, Iodixanol IV, Ativan IV, Zofran IV, Propofol IV, Anectine IV and NTG ointment. Bloodwork and chemistries obtained. Troponin of 0.04 at 21:45 and 00:17. Second CXR showed no acute process. Venous doppler study impression: No bilateral lower extremity deep vein thrombosis. Chest/thorax CTA impression: 1. No pulmonary emboli. 2. Multifocal pneumonia, pulmonary edema, acute hypersensitivity pneumonitis,. and pulmonary hemorrhage. The presence of enlarged lymph nodes favors. pneumonia. Case discussed with Dr. Alvarez, who recommended transfer due to there not being ICU beds available. The patient was intubated. Patient has good breath sounds. The patient was Re-laryngoscoped and placement of tube was confirmed. The third CXR showed acute pulmonary edema. Another EKG at 04:01 showed Sinus tachycardia at 120 bpm, no ischemia. Case discussed with Dr. Cooper , ICU attending at [facility], who accepted the patient for transfer. The patient was reassessed multiple times throughout the course of his ED stay. His oxygen saturations were somewhat labile, at times in the upper 90s at other times dropping into the 70s. His level of consciousness remained good throughout, although he eventually became somewhat agitated and difficult to redirect. This coincided with worsening of his breathing and elevation of his blood pressure. Eventually it became clear that he was not going to turn around in the immediate future and the decision was made to intubate him. Immediately after intubation he developed crackles in both lungs consistent with quite low oxygen saturations. Repeat chest x-ray confirmed clinical impression of pulmonary edema. The patient was started on another dose of Lasix and nitroglycerin with improvement in his oxygen saturation. It should also be noted that the patient did not receive any significant dose of IV fluids throughout his ED course as I was concerned about his potential for developing pulmonary edema. Also his showed fairly mild changes consistent with pulmonary edema. As we have no ICU beds available here I have made arrangements to transfer him to [facility] as a direct admit to their ICU. The patient's was apprised of his condition and the chance for arrangements. - Diagnoses Provider Diagnoses: Acute respiratory failure with hypoxia, Acute pulmonary edema, Bilateral pneumonia - Physician Notifications Discussed Care of Patient With: Katie Alvarez Time Discussed With Above Provider: 03:11 Instructed by Provider To: Other - Recommended transfer due to lack of ICU beds - Critical Care Time Critical Care Time: 75-104 min Discharge - Sign-Out/Discharge Documenting (check all that apply): Patient Departure - transfer Patient Received Moderate/Deep Sedation with Procedure: No - Discharge Plan Condition: Critical Disposition: TRANS HIGHER LVL OF CARE FAC Referrals: Gabbie Shell MD [Primary Care Provider] - - Billing Disposition and Condition Condition: CRITICAL Disposition: Trans Higher Lvl of Care Fac - Attestation Statements Document Initiated by Sonya: Yes Documenting Scribe: Karlos Webster Provider For Whom Sonya is Documenting (Include Credential): Nelson Amaya MD Scribe Attestation: I, Karlos Webster, scribed for Nelson Amaya MD on 01/03/19 at 0418. Scribe Documentation Reviewed: Yes Provider Attestation: The documentation as recorded by the Karlos shah accurately reflects the service I personally performed and the decisions made by me, Nelson Amaya MD Status of Scribe Document: Viewed Consult Consult: At 03:15 - Discussed results and plan with patient's . At 03:55 - Discussed case with Dr. Cooper, ICU attending at [facility], who will accept the patient for transfer.
[2019-01-02 22:02] LABS: ABS Basophils 0 10^3/ul (0-0.2); ABS Eosinophils 0 10^3/ul (0-0.6); ABS Lymphocytes 0.2 10^3/ul (1.0-4.8); ABS Monocytes 0.8 10^3/ul (0-0.8); ABS Neutrophils 10.3 10^3/ul (1.5-7.7); ABS Nucleated RBC 0 10^3/ul; Eosinophil % 0.4 %; Hematocrit 30 % (36-46); Hemoglobin 10.4 g/dL (14.0-18.0); Lymphocyte % 1.7 %; Mean Corpuscular HGB Conc 35 g/dL (31-36); Mean Corpuscular Hemoglobin 28 pg (27-31); Mean Corpuscular Volume 81 fL (80-94); Mean Platelet Volume 6.5 fL (7.4-10.4); Nucleated Red Blood Cells % 0.1; Platelet Count 216 10^3/uL (150-450); Red Blood Count 3.68 10^6 /uL (4.18-5.48); Red Cell Distribution Width 14 % (10.5-15); White Blood Count 11.4 10^3/uL (3.5-10.8)
[2019-01-02 22:18] LABS: ALT 11 U/L (7-52); AST 17 U/L (13-39); Albumin 3.3 g/dL (3.2-5.2); Alkaline Phosphatase 96 U/L (34-104); Anion Gap 11 mmol/L (2-11); BUN/Creatinine Ratio 14.3 (8-20); Blood Urea Nitrogen 25 mg/dL (6-24); CO2 Carbon Dioxide 22 mmol/L (22-32); Chloride 102 mmol/L (101-111); EGFR African American 47.6 (>60); EGFR Non-African American 39.3 (>60); Globulin 3.4 g/dL (2-4); Glucose 238 mg/dL (70-100); Sodium 135 mmol/L (135-145); Total Protein 6.7 g/dL (6.4-8.9)
[2019-01-02 22:21] LABS: Troponin I 0.04 ng/mL (<0.04)
--- OUTSIDE RECORDS SUMMARY | 2019-01-02 22:23 | XMS REPORT | Continuity of Care Document ---
:1955 External Reference #:[id number] Author Name Jian Matthewdavid Care Team Providers Name Role Phone Gabbie Shell MD Primary Care Physician Unavailable Payers Date Identification Numbers Payment Provider Subscriber Effective: 2010 Policy Number: [id number] [employer] Maryam Debby PayID: [id number] [address] [place] [address] Effective: 2018 Policy Number: [id number] Medicare Price Guardado PayID: [id number] [address] [place] [address] Expires: 2018 Policy Number: [id number] Medicare Price Guardado PayID: [id number] [address] [place] [address] Expires: 2018 Policy Number: [id number] Medicare Price Guardado PayID: [id number] [address] [place] [address] Expires: 2018 Policy Number: [id number] [employer] Insurance Maryam Guevara Debby Group Number: [id number] [address] PayID: [id number] [place] [address] Onset: 2015 Policy Number: [id number] Jorden Price Rg Debby Group Number: [id number] [address] PayID: [id number] MAMADOU Pardo [phone] Advance Directives Description No Information Available Problems [...] the Richardson Lily Mahan M.D. 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 Tobacco Use Start: Unknown End: Former Cigarette Smoker Unknown Smoking Status Reviewed: 12/29/18 Former Cigarette Smoker ETOH Use Rarely consumes alcohol Tobacco Use Start: Unknown End: Patient is a former quit March 2018 - Unknown smoker former 1 ppd x 45 yrs Recreational Drug Use Denies Drug Use Exercise Type/Frequency Does not exercise Allergies, Adverse Reactions, Alerts Description No Known Drug Allergies Medications Medication Date Status Form Strength Qnty SIG Indications Ordering Provider Metformin HCL / Active Tablets 1000mg 180tab 1 po bid Unknown 0000 s Zoloft / Active 100mg 2 po daily Unknown 0000 Lamictal / Active Tablets 200mg 1 by mouth Unknown 0000 twice daily Humalog / Active pump Unknown 0000 Amlodipine / Active Tablets 5mg 1 by mouth Unknown Besylate 0000 every day Bupropion HCL / Active Tablets ER 150mg 1 by mouth Unknown ER (XL) 0000 24HR every day Clopidogrel 00// Active Tablets 75mg 1 by mouth Unknown [...] 6 Hours as Needed For Nausea/Vom iting V-Go 20 / Active Kit Use as Unknown 0000 Directed To Inject Beneath The Skin Daily Onetouch Verio / Active Strips Test Blood Unknown 0000 Sugar 4 Times A Day Before Meals And Nightly Sildenafil / Active Tablets 50mg Take as Unknown Citrate 0000 Directed Cilostazol / Active Tablets 100mg Take 1 Unknown 0000 Tablet By Mouth Two Times Daily Cipro 10/23/ Hx Tablets 500mg 28tabs 1 by mouth M86.9 Jamar 2018 - twice a D. 11/12/ day for 14 Radha2018 days M.D. Oxycodone HCL 10/09/ Hx Tablets 5mg 10tabs 1 tabs by Jose Juan 2018 - mouth Fernando, 11/03/ every 6 2018 hours as needed Lamotrigine ER 08/01/ Hx Tablets 200 mg Jamar 2017 - daily D. 07/31/ Ricky 2017 M.D. Metronidazole 06/10/ Hx Tablets 500mg 42tabs 1 tab by Jamar 2017 - mouth D. 05/23/ three Ricky 2017 times per M.D. day Keflex 05/05/ Hx Capsules 250mg 30caps Take 1 [facility] 2017 - capsule Fernando 06/09/ qid 2017 Clindamycin HCL 05/02/ Hx Capsules 300mg 30caps Take 1 Jose Juan 2017 - Capsule By Fernando 05/07/ Mouth 2017 Three Times Daily Oxycodone HCL 04/24/ Hx Tablets 5mg 15tabs 1 tab Jose Juan 2017 - every 4-6 Fernando, 07/06/ hours as MD 2017 needed for pain mdd 4 Clindamycin HCL 11/01/ Hx Capsules 300mg 90caps 1 tabs by Jamar 2015 - mouth 3 D. 01/03/ times a Ricky, 2015 day M.D. Lamictal 05/13/ Hx Tablets 25mg Paul Macario 2012 - Dori, 05/13/ M.D. 2012 Lamictal 05/13/ Hx Tablets 100mg 90tabs 1 and 12 Paul Macario 2012 - malika and Dori, 10/01 q M.D. 2015 for 2 wks then 1 [...] 11/01/ four times 2016 a day Cefazolin /00/ Hx Solution 1gm 2 gm iv Unknown Sodium 0000 - Rec every 8 11/16/ hours 2015 Lisinopril /00/ Hx Tablets 20mg 1 by mouth Unknown 0000 - every day 2017 Percocet /00/ Hx Tablets 5-325mg 1 by mouth Unknown 0000 - every 4 04/21/ hours as 2018 needed pain Bentyl 00/00/ Hx Capsules 10mg take 1 Unknown 0000 - tablet by with 2016 every meal Glipizide /00/ Hx Tablets 10mg 1 by mouth Unknown 0000 - once a day 2018 Tramadol HCL /00/ Hx Tablets 50mg 1 tablets Unknown 0000 - every 6 04/06/ hours as 2016 needed Levofloxacin 00/00/ Hx Tablets 750mg Take 1 Unknown 0000 - Tablet By Mouth 2018 Every Day Clindamycin HCL 00/00/ Hx Capsules 300mg Take 1 Unknown 0000 - Capsule By 2018 Three Times Daily Metronidazole 00/00/ Hx Tablets 500mg Take 1 Unknown 0000 - Tablet By 2017 Three Times Daily Glucotrol XL 00/00/ Hx Tablets ER 10mg Unknown 0000 - 24HR 2017 Cefepime HCL 00/ Hx Solution 1gm grams Unknown 0000 - Rec every 12 06/30/ hours 2017 through Vancomycin HCL 00/00/ Hx Solution 1000mg iv every Unknown 0000 - Rec 24 hours through 2017 briova Docusate /00/ Hx Capsules 100mg 1 tab by Unknown 0000 - mouth 2-3 09/30/ times a 2018 day as needed Aspirin Adult / Hx Chewtabs 81mg 1 by mouth Unknown Low Strength 0000 - every day 2018 Atorvastatin 00/ Hx Tablets 10mg Take 10/01 Unknown Calcium 0000 - Tablet By 2019 Every Day Doxycycline / Hx Capsules 100mg one tablet Unknown Hyclate 0000 - twice 10/13/ daily 2018 Cipro 00/ Hx Tablets 500mg 1 by mouth Unknown 0000 - twice a day x 28 2018 days ([facility]) Vancomycin HCL 0000/ Hx Solution 1gm iv every Unknown 0000 - Rec 24 hours x days 2018 through ([facility] [place]) Immunizations Description No Information Available Vital Signs Date Vital Result Comment 12/29/2018 1:08pm Height 67 inches 5'7" Weight 183.00 lb Heart Rate 100 /min BP Systolic 126 mmHg BP Diastolic 74 mmHg Respiratory Rate 16 /min Body Temperature 96.8 F Pain Level 0 BMI (Body Mass Index) 28.7 kg/m2 12/24/2018 1:48pm Height 67 inches 5'7" Weight 183.00 lb Heart Rate 80 /min BP Systolic 140 mmHg BP Diastolic 80 mmHg Pain Level 9 BMI (Body Mass Index) 28.7 kg/m2 12/03/2018 1:05pm Height 67 inches 5'7" Weight 175.00 lb Heart Rate 92 /min Respiratory Rate 16 /min Body Temperature 97.2 F Pain Level 0 BMI (Body Mass Index) 27.4 kg/m2 11/18/2018 2:31pm Height 67 inches 5'7" Weight 175.00 lb Heart Rate 75 /min Respiratory Rate 16 /min Body Temperature 96.5 F Pain Level 1 BMI (Body Mass Index) 27.4 kg/m2 11/13/2018 1:13pm Height 67 inches 5'7" Weight 179.00 lb Heart Rate 92 /min BP Systolic Sitting 118 mmHg BP Diastolic Sitting 64 mmHg Respiratory Rate 14 /min Body Temperature 97.2 F BMI (Body Mass Index) 28.0 kg/m2 11/04/2018 1:11pm Height 67 inches 5'7" Weight 181.00 lb Heart Rate 108 /min Respiratory Rate 16 /min Body Temperature 97.2 F Pain Level 0 BMI (Body Mass Index) 28.3 kg/m2 10/23/2018 1:50pm Height 67 inches 5'7" Weight [...] Date Facility Test Result H/L Range Note Laboratory test 11/03/2018 [facility] Vancomycin 14.1 g/mL finding [address] [place] [address] [phone] C Reactive Protein 10.00 mg/L High <8.01 CBC Auto Diff 11/03/2018 [facility] White Blood 6.5 10^3/uL N 3.5-10.[address] [place] [address] [phone] Red Blood Count 4.48 10^6/uL N 4.00-5.40 Hemoglobin 12.8 g/dL Low 14.0-18.0 Hematocrit 38 % Low 42-52 Mean Corpuscular Volume 84 fL N 80-94 Mean Corpuscular Hemoglobin 29 pg N 27-31 Mean Corpuscular HGB Conc 34 g/dL N 31-36 Red Cell Distribution Width 14 % N 10.5-15 Platelet Count 172 10^3/uL N 150-450 Mean Platelet Volume 7.4 fL N 7.4-10.4 Abs Neutrophils 5.1 10^3/uL N 1.5-7.7 Abs Lymphocytes 0.6 10^3/uL Low 1.0-4.8 Abs Monocytes 0.6 10^3/uL N 0-0.8 Abs Eosinophils 0.2 10^3/uL N 0-0.6 Abs Basophils 0 10^3/uL N 0-0.2 Abs Nucleated RBC 0 10^3/uL Granulocyte % 78.2 % Lymphocyte % 8.9 % Monocyte % 9.4 % Eosinophil % 2.8 % Basophil % 0.7 % Nucleated Red Blood Cells % 0.1 Comp Metabolic Panel 11/03/2018 [facility] Sodium 140 mmol/L N 135-[address] [place] [address] [phone] Potassium 4.3 mmol/L N 3.5-5.0 Chloride 104 mmol/L N 101-111 Co2 Carbon Dioxide 26 mmol/L N 22-32 Anion Gap 10 mmol/L N 2-11 Glucose 165 mg/dL High 70-100 Blood Urea Nitrogen 18 mg/dL N 6-24 Creatinine 1.94 mg/dL High 0.67-1.17 BUN/Creatinine Ratio 9.3 N 8-20 Calcium 10.0 mg/dL N 8.6-10.3 Total Protein 6.8 g/dL N 6.4-8.9 Albumin 4.3 g/dL N 3.2-5.2 Globulin 2.5 g/dL N 2-4 Albumin/Globulin Ratio 1.7 N 1-3 Total Bilirubin 0.50 mg/dL N 0.2-1.0 Alkaline Phosphatase 64 U/L N 34-104 Alt 10 U/L N 7-52 Ast 14 U/L N 13-39 Egfr Non- 34.9 >60 Egfr 42.2 >60 1 Laboratory test 10/27/2018 [facility] Vancomycin Trough 16.1 g /mL finding [address] [place] [address] [phone] C Reactive Protein 7.76 mg/L N <8.01 CBC Auto Diff 10/27/2018 [facility] White Blood 6.5 10^3/uL N 3.5-10.[address] [place] [address] [phone] Red Blood Count 4.15 10^6/uL N 4.00-5.40 Hemoglobin 11.9 g/dL Low 14.0-18.0 Hematocrit 35 % Low 42-52 Mean Corpuscular Volume 84 fL N 80-94 Mean Corpuscular Hemoglobin 29 pg N 27-31 Mean Corpuscular HGB Conc 34 g/dL N 31-36 Red Cell Distribution Width 14 % N 10.5-15 Platelet Count 170 10^3/uL N 150-450 Mean Platelet Volume 7.5 fL N 7.4-10.4 Abs Neutrophils 5.1 10^3/uL N 1.5-7.7 Abs Lymphocytes 0.4 10^3/uL Low 1.0-4.8 Abs Monocytes 0.6 10^3/uL N 0-0.8 Abs Eosinophils 0.3 10^3/uL N 0-0.6 Abs Basophils 0.1 10^3/uL N 0-0.2 Abs Nucleated RBC 0 10^3/uL Granulocyte % 79.2 % Lymphocyte % 6.8 % Monocyte % 8.6 % Eosinophil % 4.5 % Basophil % 0.9 % Nucleated Red Blood Cells % 0.3 Comp Metabolic Panel 10/27/2018 [facility] Sodium 136 mmol/L N 135-[address] [place] [address] [phone] Potassium 4.9 mmol/L N 3.5-5.0 Chloride 103 mmol/L N 101-111 Co2 Carbon Dioxide 23 mmol/L N 22-32 Anion Gap 10 mmol/L N 2-11 Glucose 259 mg/dL High 70-100 Blood Urea Nitrogen 17 mg/dL N 6-24 Creatinine 2.08 mg/dL High 0.67-1.17 BUN/Creatinine Ratio 8.2 N 8-20 Calcium 9.3 mg/dL N 8.6-10.3 Total Protein 6.4 g/dL N 6.4-8.9 Albumin 3.8 g/dL N 3.2-5.2 Globulin 2.6 g/dL N 2-4 Albumin/Globulin Ratio 1.5 N 1-3 Total Bilirubin 0.40 mg/dL N 0.2-1.0 Alkaline Phosphatase 73 U/L N 34-104 Alt 11 U/L N 7-52 Ast 16 U/L N 13-39 Egfr Non- 32.2 >60 Egfr 39.0 >60 2 Laboratory test 10/20/2018 [facility] Vancomycin Trough 12.0 g /mL finding [address] [place] [address] [phone] C Reactive Protein 6.29 mg/L N <8.01 CBC Auto Diff 10/20/2018 [facility] White Blood 9.2 10^3/uL N 3.5-10.[address] [place] [address] [phone] Red Blood Count 3.98 10^6/uL Low 4.00-5.40 [...] Cells % 0 Comp Metabolic Panel 10/20/2018 [facility] Sodium 136 mmol/L N 135-145 [address] [place] [address] [phone] Potassium 4.8 mmol/L N 3.5-5.0 Chloride 103 [...] Egfr Non- 41.8 >60 Egfr 50.6 >60 3 Laboratory test 10/09/2018 [facility] Point of Care 115 mg/dL High 70-100 [address] [place] [address] [phone] Laboratory test 10/09/2018 [facility] Point of Care 312 mg/dL High 70-[address] [place] [address] [phone] Comp Metabolic 06/23/2018 [facility] Sodium 137 mmol/L N 135- 145 Panel [address] [place] [address] [phone] Potassium 4.9 mmol/L N 3.5-5.0 Chloride 107 [...] Egfr Non- 42.8 >60 Egfr 51.8 >60 6 Laboratory test 06/23/2018 [facility] Vancomycin Trough 17.8 g /mL finding [address] [place] [address] [phone] C Reactive Protein 4.23 mg/L N <8.01 Comp Metabolic Panel 06/17/2018 [facility] Sodium 133 mmol/L Low 135-[address] [place] [address] [phone] Chloride 100 mmol/L Low 101-111 Co2 Carbon [...] Egfr Non- 42.5 >60 Egfr 51.4 >60 7 Potassium 5.3 mmol/L High 3.5-5.0 Anion Gap 7 mmol/L N 2-11 Glucose 553 mg/dL High 70-100 8 Laboratory test 06/17/2018 [facility] Vancomycin Trough 21.6 g /mL finding [address] [place] [address] [phone] C Reactive Protein 6.85 mg/L N <8.01 Laboratory test 06/13/2018 [facility] C Difficile PCR SEE RESULT [address] [place] [address] [phone] Laboratory test 06/11/2018 [facility] Vancomycin Trough 24.8 g /mL finding [address] [place] [address] [phone] C Reactive Protein 4.81 mg/L N <8.01 Comp Metabolic Panel 06/11/2018 [facility] Sodium 137 mmol/L N 135-[address] [place] [address] [phone] Potassium 4.4 mmol/L N 3.5-5.0 Chloride 102 [...] Egfr Non- 44.1 >60 Egfr 53.3 >60 10 CBC Auto Diff 06/11/2018 [facility] White Blood 6.9 10^3/uL N 3.5-10.[address] [place] [address] [phone] Red Blood Count 3.88 10^6/uL Low 4.00-5.40 [...] Red Blood Cells % 0.1 Laboratory test 04/24/2018 [facility] Point of Care 234 mg/dL High 70-100 [address] [place] [address] [phone] Laboratory test 04/24/2018 [facility] Point of Care 232 mg/dL High 70-100 [address] [place] [address] [phone] Laboratory test 04/24/2018 [facility] Point of Care 281 mg/dL High 70-100 [address] [place] [address] [phone] Laboratory test 04/24/2018 [facility] Point of Care 331 mg/dL High 70-100 [address] [place] [address] [phone] Laboratory test 04/24/2018 [facility] Surgical SEE RESULT [address] [place] [address] [phone] Comp Metabolic 11/14/2015 [facility] Sodium 135 mmol/L N 133- [address] [place] [address] [phone] Potassium 5.0 mmol/L N 3.5-5.0 Chloride 101 [...] 87.8 N >60 Egfr 112.9 N >60 16 Laboratory test 11/14/2015 [facility] C Reactive 2.79 mg/L N < 5.00 [address] [place] [address] [phone] CBC Auto Diff 11/14/2015 [facility] White Blood 8.0 N 3.5- 10.[address] Count 10^3/[place] [address] [phone] Red Blood Count 4.22 10^6/uL N 4.0-5.4 [...] Blood Cells % 0.1 N Laboratory test 11/14/2015 [facility] Erythrocyte Sed 66 mm/Hr High 0-[address] [place] [address] [phone] Comp Metabolic 11/08/2015 [facility] Sodium 135 N 133-[address] mmol/[place] [address] [phone] Potassium 5.1 mmol/L High 3.5-5.0 Chloride 101 [...] 82.3 N >60 Egfr 105.9 N >60 18 Laboratory test 11/08/2015 [facility] C Reactive 4.89 mg/L N < 5.00 [address] [place] [address] [phone] CBC Auto Diff 11/08/2015 [facility] White Blood 7.3 N 3.5- 10.[address] Count 10^3/[place] [address] [phone] Red Blood Count 4.45 10^6/uL N 4.0-5.4 [...] Cells % 0.6 N Laboratory test 11/08/2015 [facility] Erythrocyte Sed 77 mm/Hr High 0-[address] [place] [address] [phone] Comp Metabolic 10/31/2015 [facility] Sodium 134 N 133-[address] mmol/[place] [address] [phone] Potassium 4.3 mmol/L N 3.5-5.0 Chloride 100 [...] 79.4 N >60 Egfr 102.1 N >60 20 Laboratory test 10/31/2015 [facility] C Reactive 9.73 mg/L High < 5.00 [address] [place] [address] [phone] CBC Auto Diff 10/31/2015 [facility] White Blood 9.1 N 3.5- 10.[address] Count 10^3/[place] [address] [phone] Red Blood Count 4.36 10^6/uL N 4.0-5.4 [...] Cells % 0.1 N Laboratory test 10/31/2015 [facility] Erythrocyte Sed 95 mm/Hr High 0-[address] [place] [address] [phone] CBC Auto Diff 10/24/2015 [facility] White Blood 10.3 N 3.5- 10.[address] Count 10^3/[place] [address] [phone] Red Blood Count 4.23 10^6/uL N 4.0-5.4 [...] % 0 N Comp Metabolic Panel 10/24/2015 [facility] Sodium 136 mmol/L N 133-145 [address] [place] [address] [phone] Potassium 4.9 mmol/L N 3.5-5.0 Chloride 102 [...] 71.6 N >60 Egfr 92.0 N >60 22 Laboratory test 10/24/2015 [facility] C Reactive 15.74 mg/L High < 5.00 [address] [place] [address] [phone] Laboratory test 10/13/2015 [facility] Point of Care 150 mg/dL High 74-106 [address] [place] [address] [phone] Laboratory test 10/13/2015 [facility] Wound SEE RESULT [address] Culture/Sensi BELOW [place], [place] [phone] Tissue (BX) Culture & Gram St SEE RESULT BELOW 26 MRSA/S. aureus Ssti PCR SEE RESULT BELOW 27 Anaerobic Culture SEE RESULT BELOW 28 Laboratory test 10/13/2015 [facility] Wound Culture/Sensi SEE RESULT [address] [place] [address] [phone] Tissue (BX) Culture & Gram St SEE RESULT BELOW 30 MRSA/S. aureus Ssti PCR SEE RESULT BELOW 31 Anaerobic Culture SEE RESULT BELOW 32 Laboratory test 10/13/2015 [facility] Wound Culture/Sensi SEE RESULT [address] [place] [address] [phone] Tissue (BX) Culture & Gram St SEE RESULT BELOW 34 MRSA/S. aureus Ssti PCR SEE RESULT BELOW 35 Anaerobic Culture SEE RESULT BELOW 36 Laboratory test 10/13/2015 [facility] Wound Culture/Sensi SEE RESULT [address] [place] [address] [phone] Tissue (BX) Culture & Gram St SEE RESULT BELOW 38 MRSA/S. aureus Ssti PCR SEE RESULT BELOW 39 Anaerobic Culture SEE RESULT BELOW 40 Laboratory test 10/13/2015 [facility] Mycobacterial See Comment N [address] [place] [address] [phone] 1 Because ethnic data is not always [...] 5 Kidney failure <15 (or dialysis) 3 Because ethnic data is not always readily [...] 15-29 5 Kidney failure <15 (or dialysis) 4 Mixed Animal Veterinarian: [id number] 5 Mixed Animal Veterinarian: [id number] 6 Because ethnic data is not always [...] 5 Kidney failure <15 (or dialysis) 7 Because ethnic data is not always [...] 5 Kidney failure <15 (or dialysis) 8 Critical Result [id number] Called to GONSALO at: 13:25:55 by:[id number] Read back by: [email or web address] 9 SEE RESULT BELOW Name: PRICE GUARDADO : [address]: Jamar Pérez MD Acct: [id number] Unit: [id number] AGE: 62 Location: [facility] Re06/13/18 SEX: M Status: REG REF SPEC: [id number] GABO: 06/13/18-[address] [facility] [address]: Jamar Pérez MD REQ: [id number] RECD: 06/13/18 STATUS: COMP _ SOURCE: STOOL SPDESC: ORDERED: C. diff PCR Procedure Result Reported Site Stool Specimen Description Final 06/13/18- 1609 ML Stool Color Brown Stool Form Formed Stool Consistency Hard C. difficile PCR Final 06/13/18- 1609 ML Test not performed * - [facility] . END OF REPORT DEPARTMENT OF PATHOLOGY, [address] [place] [address] Vinayak Yanez M.D. Director [facility] # [id number] 10 Because ethnic data is not always [...] 5 Kidney failure <15 (or dialysis) 11 Mixed Animal Veterinarian: [id number] 12 Mixed Animal Veterinarian: [id number] 13 Mixed Animal Veterinarian: [id number] 14 Mixed Animal Veterinarian: [id number] 15 SEE RESULT BELOW Name: PRICE GUARDADO : [address]: Jose Juan King MD Acct: [id number] Unit: [id number] AGE: 62 Location: [place] Re04/24/18 SEX: M Status: DEP [facility] SPEC: [id number] GABO: 04/24/18- SUBM DR: Jose Juan King MD REQ: [id number] RECD: 04/24/181440 STATUS: SOUT _ ORDERED: Decal, [...] margin blue and plantar margin black, and credit and collections representative sections are submitted in cassettes A and B to include bone following decalcification in cassette A. Signed by and Reported on: Abby Ellis MD 04/29/18 1052 END OF REPORT DEPARTMENT OF PATHOLOGY, [address] [place] [address] Vinayak Yanez M.D. Director [facility] # [id number] 16 Because ethnic data is not always [...] (or dialysis) 21 Acute inflammation: >10.00 22 Because ethnic data is not always readily [...] 15-29 5 Kidney failure <15 (or dialysis) 23 Acute inflammation: >10.00 24 Mixed Animal Veterinarian: [id number] FERNANDO PETTIT 25 SEE RESULT BELOW Name: PRICE GUARDADO : [address]: Jessie Lazar MD Acct: [id number] Unit: [id number] AGE: 60 Location: [facility] Re10/13/15 SEX: M Status: REG [facility] SPEC: [id number] GABO: 10/13/15-[address] [facility] [address]: Jessie Lazar MD REQ: [id number] RECD: 10/13/15 STATUS: RES OTHR DR: Gabbie [...] PENDING * ML - MAIN LAB ([facility]) . END OF REPORT * ML=Testing performed at Main Lab DEPARTMENT OF PATHOLOGY, [address] [facility] [place], [place] [address] Vinayak Yanez M.D. Director [facility] # [id number] 26 SEE RESULT BELOW Name: PRICE GUARDADO : [address]: Jessie Lazar MD Acct: [id number] Unit: [id number] AGE: 60 Location: [place] [address] Re10/13/15 Dis: 10/19/15 SEX: M Status: DIS IN SPEC: [id number] GABO: 10/13/15-[address] [facility] [address]: Jessie Lazar MD REQ: [id number] RECD: 10/13/15373 STATUS: RES OTHR DR: Gabbie Shell MD _ SOURCE: WOUND SPDESC:KNEE LEFT ORDERED: Tissue Cult/GS/R, Fungal - Other/R, Acid Fast Stain/U COMMENTS: CLOSTRIDIUM FINDINGS IN ADDITION TO S. AUREUS: Verbal to DR. SHELL by [id number] at 1411 on 10/15/15. Results read back [...] performed at Main Lab DEPARTMENT OF PATHOLOGY, [address] [place] [address] Vinayak Yanez M.D. Director [facility] # [id number] Patient: PRICE GUARDADO [id number] (Continued) Specimen: [id number] Collected: 10/13/15-1639 Received: 10/13/15-1755 (Continued) Procedure Result Reported Site Acid Fast Stain - Direct Final (continued) 10/14/15- 817 Due to limited sensitivity of the smear, results should be used as an adjunct in evaluating the patient's status and cultural examination is highly recommended for diagnosis. * ML - MAIN LAB ([facility]) . END OF REPORT * ML=Testing performed at Main Lab DEPARTMENT OF PATHOLOGY, [address] [place] [address] Vinayak Yanez M.D. Director [facility] # [id number] 27 SEE RESULT BELOW Name: PRICE GUARDADO : [address]: Jessie Lazar MD Acct: [id number] Unit: [id number] AGE: 60 Location: [facility] Re10/13/15 SEX: M Status: ADM IN SPEC: [id number] GABO: 10/13/15-[address] [facility] [address]: Jessie Lazar MD REQ: [id number] RECD: 10/13/15 STATUS: RES OTHR DR: Gabbie Shell MD _ SOURCE: WOUND SPDESC:KNEE LEFT ORDERED: Anaerobic Cult/R, MRSA/SA SSTI/R, Culture Stain/R, Fungal - Other /R, Acid Fast Stain/U COMMENTS: Verbal to GEMINI CHAWLA by [id number] at 2020 on 10/13/15. Results read back [...] performed at Main Lab DEPARTMENT OF PATHOLOGY, [address] [place] [address] Vinayak Yanez M.D. Director [facility] # [id number] Patient: PRICE GUARDADO [id number] (Continued) Specimen: [id number] Collected: 10/13/15 Received: 10/13/15 (Continued) Procedure Result Reported Site Acid Fast Stain - Direct Final (continued) 10/14/15809 Due to limited sensitivity of the smear, results should be used as an adjunct in evaluating the patient's status and cultural examination is highly recommended for diagnosis. * ML - MAIN LAB ([facility]) . END OF REPORT * ML=Testing performed at Main Lab DEPARTMENT OF PATHOLOGY, [address] [place] [address] Vinayak Yanez M.D. Director [facility] # [id number] 28 SEE RESULT BELOW Name: PRICE GUARDADO : [address]: Jessie Lazar MD Acct: [id number] Unit: [id number] AGE: 60 Location: [facility] 338-01 Re10/13/15 Dis: 10/19/15 SEX: M Status: DIS IN SPEC: [id number] GABO: 10/13/15-[address] [facility] [address]: Jessie Lazar MD REQ: [id number] RECD: 10/13/15 STATUS: RES OTHR DR: Gabbie Shell MD _ SOURCE: WOUND SPDESC:KNEE LEFT ORDERED: Anaerobic Cult/R, MRSA/SA SSTI/R, Culture Stain/R, Fungal - Other /R, Acid Fast Stain/U COMMENTS: Verbal to GEMINI CHAWLA by [id number] at 2020 on 10/13/15. Results read back accurately. CLOSTRIDIUM FINDINGS IN ADDITION TO S. AUREUS: Verbal to DR. SHELL by [id number] at 1411 on 10/15/15. Results read back [...] performed at Main Lab DEPARTMENT OF PATHOLOGY, [address] [place] [address] Vinayak Yanez M.D. Director [facility] # [id number] Patient: PRICE GUARDADO [id number] (Continued) Specimen: [id number] Collected: 10/13/15-1639 Received: 10/13/15-1753 (Continued) Procedure Result [...] These antibiotics are not available in the [facility] Formulary Contact the Microbiology Department for any additional antibiotic reporting. Fungal Cult - Other Sources Preliminary 10/24/15- 1325 ML Fungal Culture No Growth of Mycotic Organisms 1 week Acid Fast Stain - Direct Final 10/14/15- 0810 ML CONTINUED ON NEXT PAGE * ML=Testing performed at Main Lab DEPARTMENT OF PATHOLOGY, [address] [place] [address] Vinayak Yanez M.D. Director [facility] # [id number] Patient: PRICE GUARDADO [id number] (Continued) Specimen: [id number] Collected: 10/13/15 Received: 10/13/15 (Continued) Procedure Result Reported Site Acid Fast Stain - Direct Final (continued) 10/14/15809 AFB Smear Result No Acid Fast Bacillus Present (Negative) Preparation By Direct Smear Due to limited sensitivity of the smear, results should be used as an adjunct in evaluating the patient's status and cultural examination is highly recommended for diagnosis. * ML - MAIN LAB ([facility]) . END OF REPORT * ML=Testing performed at Main Lab DEPARTMENT OF PATHOLOGY, [address], [place], [place] [address] Vinayak Yanez M.D. Director [facility] # [id number] 29 SEE RESULT BELOW Name: PRICE GUARDADO : [address]: Jessie Lazar MD Acct: [id number] Unit: [id number] AGE: 60 Location: [facility] Re10/13/15 SEX: M Status: REG SDC SPEC: [id number] GABO: 10/13/15-[address] [facility] [address]: Jessie Lazar MD REQ: [id number] RECD: 10/13/15106 STATUS: RES OTHR DR: Gabbie Shell MD [...] performed at Main Lab DEPARTMENT OF PATHOLOGY, [address] [place] [address] Vinayak Yanez M.D. Director [facility] # [id number] 30 SEE RESULT BELOW Name: PRICE GUARDADO : [address]: Jessie Lazar MD Acct: [id number] Unit: [id number] AGE: 60 Location: [facility] 338-01 Re10/13/15 Dis: 10/19/15 SEX: M Status: DIS IN SPEC: [id number] GABO: 10/13/15-[address] [facility] [address]: Jessie Lazar MD REQ: [id number] RECD: 10/13/15 STATUS: RES OTHR DR: Gabbie Shell MD _ SOURCE: WOUND SPDESC:KNEE LEFT ORDERED: Tissue Cult/GS/R, Fungal - Other/R, Acid Fast Stain/U COMMENTS: CLOSTRIDIUM FINDINGS IN ADDITION TO S. AUREUS: Verbal to DR. SHELL by [id number] at 1411 on 10/15/15. Results read back [...] performed at Main Lab DEPARTMENT OF PATHOLOGY, [address] [place] [address] Vinayak Yanez M.D. Director [facility] # [id number] Patient: PRICE GUARDADO [id number] (Continued) Specimen: [id number] Collected: 10/13/15-1639 Received: 10/13/15567 (Continued) Procedure Result Reported Site Acid Fast Stain - Direct Final (continued) 10/14/15- 817 Due to limited sensitivity of the smear, results should be used as an adjunct in evaluating the patient's status and cultural examination is highly recommended for diagnosis. * ML - MAIN LAB ([facility]) . END OF REPORT * ML=Testing performed at Main Lab DEPARTMENT OF PATHOLOGY, [address] [place] [address] Vinayak Yanez M.D. Director [facility] # [id number] 31 SEE RESULT BELOW Name: PRICE GUARDADO : [address]: Jessie Lazar MD Acct: [id number] Unit: [id number] AGE: 60 Location: [facility] 338-01 Re10/13/15 SEX: M Status: ADM IN SPEC: [id number] GABO: 10/13/15-[address]: Jessie Lazar MD REQ: [id number] RECD: 10/13/15 STATUS: RES OTHR DR: Gabbie Shell MD _ SOURCE: WOUND SPDESC:KNEE LEFT ORDERED: Anaerobic Cult/R, MRSA/SA SSTI/R, Culture Stain/R, Fungal - Other /R, Acid Fast Stain/U COMMENTS: Verbal to GEMINI HASKINSZONIA CHAWLA by [id number] at 2020 on 10/13/15. Results read back [...] performed at Main Lab DEPARTMENT OF PATHOLOGY, [address] [place] [address] Vinayak Yanez M.D. Director [facility] # [id number] Patient: PRICE GUARDADO [id number] (Continued) Specimen: [id number] Collected: 10/13/15 Received: 10/13/15 (Continued) Procedure Result Reported Site Acid Fast Stain - Direct Final (continued) 10/14/15809 Due to limited sensitivity of the smear, results should be used as an adjunct in evaluating the patient's status and cultural examination is highly recommended for diagnosis. * ML - MAIN LAB ([facility]) . END OF REPORT * ML=Testing performed at Main Lab DEPARTMENT OF PATHOLOGY, [address] [place] [address] Vinayak Yanez M.D. Director [facility] # [id number] 32 SEE RESULT BELOW Name: PRICE GUARDADO : [address]: Jessie Lazar MD Acct: [id number] Unit: [id number] AGE: 60 Location: [place] [address]- Re10/13/15 Dis: 10/19/15 SEX: M Status: DIS IN SPEC: [id number] GABO: 10/13/15-[address] [facility] [address]: Jessie Lazar MD REQ: [id number] RECD: 10/13/151754 STATUS: RES OTHR DR: Gabbie Shell MD _ SOURCE: WOUND SPDESC:KNEE LEFT ORDERED: Anaerobic Cult/R, MRSA/SA SSTI/R, Culture Stain/R, Fungal - Other /R, Acid Fast Stain/U COMMENTS: Verbal to GEMINI AMY CHAWLA by [id number] at 2020 on 10/13/15. Results read back accurately. CLOSTRIDIUM FINDINGS IN ADDITION TO S. AUREUS: Verbal to DR. SHELL by [id number] at 1411 on 10/15/15. Results read back [...] performed at Main Lab DEPARTMENT OF PATHOLOGY, [address] [place] [address] Vinayak Yanez M.D. Director [facility] # [id number] Patient: DEBBYPRICE Rg [id number] (Continued) Specimen: [id number] Collected: 10/13/15 Received: 10/13/15 (Continued) Procedure Result [...] These antibiotics are not available in the [facility] Formulary Contact the Microbiology Department for any additional antibiotic reporting. Fungal Cult - Other Sources Preliminary 10/31/15- 1443 ML Fungal Culture No Growth of Mycotic Organisms 2 weeks Acid Fast Stain - Direct Final 10/14/15- 0810 ML CONTINUED ON NEXT PAGE * ML=Testing performed at Main Lab DEPARTMENT OF PATHOLOGY, [address] [place] [address] Vinayak Yanez M.D. Director [facility] # [id number] Patient: PRICE GUARDADO [id number] (Continued) Specimen: [id number] Collected: 10/13/15-1639 Received: 10/13/15175 (Continued) Procedure Result [...] diagnosis. * ML - MAIN LAB ([facility]) . END OF REPORT * ML=Testing performed at Main Lab DEPARTMENT OF PATHOLOGY, [address] [place] [address] Vinayak Yanez M.D. Director [facility] # [id number] 33 SEE RESULT BELOW Name: PRICE GUARDADO : [address]: Jessie Lazar MD Acct: [id number] Unit: [id number] AGE: 60 Location: [facility] Re10/13/15 SEX: M Status: REG [facility] SPEC: [id number] GABO: 10/13/15-[address] [facility] [address]: Jessie Lazar MD REQ: [id number] RECD: 10/13/15 STATUS: RES OTHR DR: Gabbie [...] performed at Main Lab DEPARTMENT OF PATHOLOGY, [address] [place] [address] Vinayak Yanez M.D. Director [facility] # [id number] 34 SEE RESULT BELOW Name: PRICE GUARDADO : [address]: Jessie Lzaar MD Acct: [id number] Unit: [id number] AGE: 60 Location: [facility] 338-01 Re10/13/15 Dis: 10/19/15 SEX: M Status: DIS IN SPEC: [id number] GABO: 10/13/15-[address] [facility] [address]: Jessie Lazar MD REQ: [id number] RECD: 10/13/15887 STATUS: RES OTHR DR: Gabbie Shell MD _ SOURCE: WOUND SPDESC:KNEE LEFT ORDERED: Tissue Cult/GS/R, Fungal - Other/R, Acid Fast Stain/U COMMENTS: CLOSTRIDIUM FINDINGS IN ADDITION TO S. AUREUS: Verbal to DR. SHELL by [id number] at 1411 on 10/15/15. Results read back [...] PAGE * ML=Testing performed at [facility] Lab DEPARTMENT OF PATHOLOGY, [address] [place] [address] Vinayak Yanez M.D. Director [facility] # [id number] Patient: PRICE GUARDADO [id number] (Continued) Specimen: [id number] Collected: 10/13/15-1639 Received: 10/13/15 (Continued) Procedure Result Reported Site Acid Fast Stain - Direct Final (continued) 10/14/15817 Due to limited sensitivity of the smear, results should be used as an adjunct in evaluating the patient's status and cultural examination is highly recommended for diagnosis. * ML - MAIN LAB ([facility]) . END OF REPORT * ML=Testing performed at Main Lab DEPARTMENT OF PATHOLOGY, [address] [place] [address] Vinayak Yanez M.D. Director [facility] # [id number] 35 SEE RESULT BELOW Name: PRICE GUARDADO : [address]: Jessie Lazar MD Acct: [id number] Unit: [id number] AGE: 60 Location: [address] Re10/13/15 SEX: M Status: ADM IN SPEC: [id number] GABO: 10/13/15-[address] [facility] [address]: Jessie Lazar MD REQ: [id number] RECD: 10/13/15 STATUS: RES OTHR DR: Gabbie Shell MD _ SOURCE: WOUND SPDESC:KNEE LEFT ORDERED: Anaerobic Cult/R, MRSA/SA SSTI/R, Culture Stain/R, Fungal - Other /R, Acid Fast Stain/U COMMENTS: Verbal to GEMINI CHAWLA by [id number] at 2020 on 10/13/15. Results read back [...] performed at Main Lab DEPARTMENT OF PATHOLOGY, [address] [place] [address] Vinayak Yanez M.D. Director [facility] # [id number] Patient: PRICE GUARDADO [id number] (Continued) Specimen: [id number] Collected: 10/13/15-1639 Received: 10/13/15 (Continued) Procedure Result Reported Site Acid Fast Stain - Direct Final (continued) 10/14/15809 Due to limited sensitivity of the smear, results should be used as an adjunct in evaluating the patient's status and cultural examination is highly recommended for diagnosis. * ML - MAIN LAB ([facility]) . END OF REPORT * ML=Testing performed at Main Lab DEPARTMENT OF PATHOLOGY, [address] [place] [address] Vinayak Yanez M.D. Director [facility] # [id number] 36 SEE RESULT BELOW Name: PRICE GUARDADO : [address]: Jessie Lazar MD Acct: [id number] Unit: [id number] AGE: 60 Location: [place] [address] Re10/13/15 Dis: 10/19/15 SEX: M Status: DIS IN SPEC: [id number] GABO: 10/13/15-[address] [facility] [address]: Jessie Lazar MD REQ: [id number] RECD: 10/13/15 STATUS: RES OTHR DR: Gabbie Shell MD _ SOURCE: WOUND SPDESC:KNEE LEFT ORDERED: Anaerobic Cult/R, MRSA/SA SSTI/R, Culture Stain/R, Fungal - Other /R, Acid Fast Stain/U COMMENTS: Verbal to GEMINI CHAWLA by [id number] at 2020 on 10/13/15. Results read back accurately. CLOSTRIDIUM FINDINGS IN ADDITION TO S. AUREUS: Verbal to DR. SHELL by [id number] at 1411 on 10/15/15. Results read back [...] performed at Main Lab DEPARTMENT OF PATHOLOGY, [address] [place] [address] Vinayak Yanez M.D. Director [facility] # [id number] Patient: PRICE GUARDADO [id number] (Continued) Specimen: [id number] Collected: 10/13/15 Received: 10/13/15175 (Continued) Procedure Result [...] These antibiotics are not available in the [facility] Formulary Contact the Microbiology Department for any additional antibiotic reporting. Fungal Cult - Other Sources Preliminary 11/07/15- 1229 ML Fungal Culture No Growth of Mycotic Organisms 3 weeks Acid Fast Stain - Direct Final 10/14/15809 ML CONTINUED ON NEXT PAGE * ML=Testing performed at Main Lab DEPARTMENT OF PATHOLOGY, [address] [place] [address] Vinayak Yanez M.D. Director [facility] # [id number] Patient: PRICE GUARDADO [id number] (Continued) Specimen: [id number] Collected: 10/13/15 Received: 10/13/15 (Continued) Procedure Result Reported Site Acid Fast Stain - Direct Final (continued) 10/14/15809 AFB Smear Result No Acid Fast Bacillus Present (Negative) Preparation By Direct Smear Due to limited sensitivity of the smear, results should be used as an adjunct in evaluating the patient's status and cultural examination is highly recommended for diagnosis. * ML - MAIN LAB ([facility]) . END OF REPORT * ML=Testing performed at Main Lab DEPARTMENT OF PATHOLOGY, [address] [place] [address] Vinayak Yanez M.D. Director [facility] # [id number] 37 SEE RESULT BELOW Name: PRICE GUARDADO : [address]: Jessie Lazar MD Acct: [id number] Unit: [id number] AGE: 60 Location: [facility] Re10/13/15 SEX: M Status: REG SDC SPEC: [id number] GABO: 10/13/15-[address] [facility] [address]: Jessie Lazar MD REQ: [id number] RECD: 10/13/15223 STATUS: RES OTHR DR: Gabbie Shell MD [...] Direct PENDING * ML - MAIN LAB ([facility]) . END OF REPORT * ML=Testing performed at Main Lab DEPARTMENT OF PATHOLOGY, [address] [place] [address] Vinayak Yanez M.D. Director [facility] # [id number] 38 SEE RESULT BELOW Name: PRICE GUARDADO : [address]: Jessie Lazar MD Acct: [id number] Unit: [id number] AGE: 60 Location: [facility] 338- Re10/13/15 Dis: 10/19/15 SEX: M Status: DIS IN SPEC: [id number] GABO: 10/13/15-[address] [facility] [address]: Jessie Lazar MD REQ: [id number] RECD: 10/13/15 STATUS: COMP OTHR DR: Gabbie Shell MD _ SOURCE: WOUND SPDESC:KNEE LEFT ORDERED: Tissue Cult/GS/R, Fungal - Other/R, Acid Fast Stain/U COMMENTS: CLOSTRIDIUM FINDINGS IN ADDITION TO S. AUREUS: Verbal to DR. SHELL by [id number] at 1411 on 10/15/15. Results read back [...] performed at Main Lab DEPARTMENT OF PATHOLOGY, [address] [place] [address] Vinayak Yanez M.D. Director [facility] # [id number] Patient: PRICE GUARDADO [id number] (Continued) Specimen: [id number] Collected: 10/13/15-1639 Received: 10/13/15-1755 (Continued) Procedure Result Reported Site Acid Fast Stain - Direct Final (continued) 10/14/15- 817 Due to limited sensitivity of the smear, results should be used as an adjunct in evaluating the patient's status and cultural examination is highly recommended for diagnosis. * ML - MAIN LAB ([facility]) . END OF REPORT * ML=Testing performed at Main Lab DEPARTMENT OF PATHOLOGY, [address] [place] [address] Vinayak Yanez M.D. Director [facility] # [id number] 39 SEE RESULT BELOW Name: PRICE GUARDADO : [address]: Jessie Lazar MD Acct: [id number] Unit: [id number] AGE: 60 Location: [facility] 338-01 Re10/13/15 SEX: M Status: ADM IN SPEC: [id number] GABO: 10/13/15-[address]: Jessie Lazar MD REQ: [id number] RECD: 10/13/15 STATUS: RES OTHR DR: Gabbie Shell MD _ SOURCE: WOUND SPDESC:KNEE LEFT ORDERED: Anaerobic Cult/R, MRSA/SA SSTI/R, Culture Stain/R, Fungal - Other /R, Acid Fast Stain/U COMMENTS: Verbal to GEMINI CHAWLA by [id number] at 2020 on 10/13/15. Results read back [...] performed at Main Lab DEPARTMENT OF PATHOLOGY, [address] [place] [address] Vinayak Yanez M.D. Director [facility] # [id number] Patient: PRICE GUARDADO [id number] (Continued) Specimen: [id number] Collected: 10/13/15 Received: 10/13/15 (Continued) Procedure Result Reported Site Acid Fast Stain - Direct Final (continued) 10/14/15809 Due to limited sensitivity of the smear, results should be used as an adjunct in evaluating the patient's status and cultural examination is highly recommended for diagnosis. * ML - MAIN LAB ([facility]) . END OF REPORT * ML=Testing performed at Main Lab DEPARTMENT OF PATHOLOGY, [address] [place] [address] Vinayak Yanez M.D. Director [facility] # [id number] 40 SEE RESULT BELOW Name: PRICE GUARDADO Arcenio : [address]: Jessie Lazar MD Acct: [id number] Unit: [id number] AGE: 60 Location: [facility] 338-01 Re10/13/15 Dis: 10/19/15 SEX: M Status: DIS IN SPEC: [id number] GABO: 10/13/15-[address] [place] [address] DR: Jessie Lazar MD REQ: [id number] RECD: 10/13/15 STATUS: COMP [facility] DR: Gabbie Shell MD _ SOURCE: WOUND SPDESC:KNEE LEFT ORDERED: Anaerobic Cult/R, MRSA/SA SSTI/R, Culture Stain/R, Fungal - Other /R, Acid Fast Stain/U COMMENTS: Verbal to GEMINI AMY CHAWLA by [id number] at 2020 on 10/13/15. Results read back accurately. CLOSTRIDIUM FINDINGS IN ADDITION TO S. AUREUS: Verbal to DR. SHELL by [id number] at 1411 on 10/15/15. Results read back [...] performed at Main Lab DEPARTMENT OF PATHOLOGY, [address] [place] [address] Vinayak Yanez M.D. Director [facility] # [id number] Patient: DEBBYPRICE [id number] (Continued) Specimen: [id number] Collected: 10/13/15 Received: 10/13/15 (Continued) Procedure Result [...] These antibiotics are not available in the [facility] Formulary Contact the Microbiology Department for any additional antibiotic reporting. Fungal Cult - Other Sources Final 11/14/15- 1427 ML Fungal Culture No Growth of Mycotic Organisms 4 weeks Acid Fast Stain - Direct Final 10/14/15- 0810 ML CONTINUED ON NEXT PAGE * ML=Testing performed at Main Lab DEPARTMENT OF PATHOLOGY, [address] [place] [address] Vinayak Yanez M.D. Director [facility] # [id number] Patient: PRICE GUARDADO [id number] (Continued) Specimen: [id number] Collected: 10/13/15-1639 Received: 10/13/15-1754 (Continued) Procedure Result Reported Site Acid Fast Stain - Direct Final (continued) 10/14/15809 AFB Smear Result No Acid Fast Bacillus Present (Negative) Preparation By Direct Smear Due to limited sensitivity of the smear, results should be used as an adjunct in evaluating the patient's status and cultural examination is highly recommended for diagnosis. * ML - MAIN LAB ([facility]) . END OF REPORT * ML=Testing performed at Main Lab DEPARTMENT OF PATHOLOGY, [address] [place] [address] Vinayak Yanez M.D. Director [facility] # [id number] SOURCE: KNEE, KNEE WOUND SWAB MYCOBACTERIAL CULTURE FINAL No growth after 60 days of incubation. Test Performed by: [address] [address] Transcribing Operator Head: Cam Isidro II, M.D., Ph.D. Procedures Date Code Description Status 10/11/2018 02389 EKG, Interpretation Only Completed 10/09/2018 28936 Amputation,Toe;Interphalangeal Joint Completed 10/09/2018 20707 Amputation,Toe;Interphalangeal Joint Completed 10/09/2018 15215 Amputation,Toe;Interphalangeal Joint Completed 09/22/2018 29491 EEG Recording Awake & Drowsy Completed 05/29/2018 27735 Incision Bone Cortex Foot Completed 05/29/2018 82264 Layer Closure Of Wounds 2.6CM - 7.5CM Completed Neck,Hands,Feet,Genitalia 05/29/2018 23310 Layer Closure Of Wounds 2.6CM - 7.5CM Completed Neck,Hands,Feet,Genitalia 05/29/2018 41919 Debridement Tissue/Muscle/Bone Completed 05/27/2018 99937 EKG, Interpretation Only Completed 04/24/2018 47194 Amputation,Toe;Interphalangeal Joint Completed 04/24/2018 51977 Amputation,Toe;Interphalangeal Joint Completed 04/24/2018 25656 Amputation,Toe;Interphalangeal Joint Completed 04/24/2018 53641 Amputation,Toe;Interphalangeal Joint Completed 04/24/2018 06868 Amputation,Toe;Interphalangeal Joint Completed 04/18/2018 81073 Revascularization,Endovascular W/Atherectomy, Inc Completed Angioplasty 04/18/2018 06770 Revascularization,Endovascular W/Atherectomy, Inc Completed Angioplasty 04/18/2018 90176 Angio Extremity, Bilateral Completed 04/18/2018 31110 Ultrasound Guidance For Vascular Access Completed 04/18/2018 22774 Moderate Sedation Services; Same Phys Intl 15 Mins; PT Completed >=5 Years 04/18/2018 23967 Moderate Sedation Services; Same Phys Each Additional Completed 15 Mins 12/10/2016 81094 ECHO Transthorasic Realtime 2D W Doppler & Color Flow Completed Hosp 12/09/2016 75771 EKG, Interpretation Only Completed 01/10/2016 19373 Treadmill Interp/Report Only Completed 01/10/2016 45834 Stress Test Supervsn W/Out I/R Completed 10/15/2015 88748 Arthroscopy,Knee For Infection,Lavage & Drainage Completed 10/15/2015 79345 Arthroscopy,Knee For Infection,Lavage & Drainage Completed 10/15/2015 38887 Arthroscopy,Knee For Infection,Lavage & Drainage Completed 10/15/2015 35219 Arthroscopy,Knee For Infection,Lavage & Drainage Completed 10/13/2015 60067 Arthroscopy,Knee,Meniscectomy Medial Or Lateral Completed 10/13/2015 55686 Arthroscopy,Knee,Meniscectomy Medial Or Lateral Completed 10/13/2015 44843 Arthroscopy,Knee For Infection,Lavage & Drainage Completed 05/18/2013 38141 EEG Recording Awake & Asleep Completed 03/13/2013 38651 Color Flow Doppler/Interp & Reprt Completed 03/13/2013 61249 Pulse Wave/Continuous-Interp.RPT Completed 03/13/2013 06698 Echocardiography, Transesophageal, Real Time W/Image 2D Completed W/W/O M-M 11/11/2012 28414936 Colonoscopy Completed Encounters Type Date Location Provider Dx Diagnosis Office Visit 11/13/2018 [facility] Jordan E11.69 Type 2 diabetes 1:20p Infectious Gabrielle Pérez mellitus with other Diseases specified complication Z89.422 Acquired absence of other left toe(s) M86.172 Other acute osteomyelitis, left ankle and foot Office Visit 10/23/2018 [facility] Jamar Jordan M86.9 Osteomyelitis, 2:00p For Infectious Gabrielle Pérez unspecified Diseases E11.69 Type 2 diabetes mellitus with other specified complication Z79.2 FPC (current) use of antibiotics Z89.422 Acquired absence of other left toe(s) Office Visit 10/13/2018 [facility] Z98.890 Other specified 10:11a Assoctrevor NP postprocedural Hospitalists states M86.9 Osteomyelitis, unspecified K52.9 Noninfective gastroenteritis and colitis, unspecified E11.9 Type 2 diabetes mellitus without complications Z86.73 Prsnl hx of TIA (TIA), and cereb infrc w/o resid deficits G25.0 Essential tremor I73.9 Peripheral vascular disease, unspecified Office Visit 10/12/2018 [facility] Z98.890 Other specified 10:11a Assoctrevor NP postprocedural Hospitalists states M86.9 Osteomyelitis, unspecified R19.7 Diarrhea, unspecified E11.9 Type 2 diabetes mellitus without complications Z86.73 Prsnl hx of TIA (TIA), and cereb infrc w/o resid deficits G25.0 Essential tremor I73.9 Peripheral vascular disease, unspecified Office Visit 10/11/2018 [facility] Z98.890 Other specified 10:10a Assoctrevor PA postprocedural Hospitalists states M86.9 Osteomyelitis, unspecified I73.9 Peripheral vascular disease, unspecified K52.9 Noninfective gastroenteritis and colitis, unspecified F32.9 Major depressive disorder, single episode, unspecified E11.9 Type 2 diabetes mellitus without complications Z86.73 Prsnl hx of TIA (TIA), and cereb infrc w/o resid deficits G25.0 Essential tremor Office Visit 10/10/2018 12:10p [facility] Jamar Jordan E11.52 Type 2 diabetes Infectious Gabrielle Pérez w diabetic Diseases peripheral angiopathy w gangrene E11.69 Type 2 diabetes mellitus with other specified complication M86.172 Other acute osteomyelitis, left ankle and foot E11.40 Type 2 diabetes mellitus with diabetic neuropathy, unsp Office Visit 10/10/2018 [facility] Z98.890 Other specified 10:10a Assoc,SAIDA Morgan postprocedural Hospitalists states M86.9 Osteomyelitis, unspecified I73.9 Peripheral vascular disease, unspecified K52.9 Noninfective gastroenteritis and colitis, unspecified F32.9 Major depressive disorder, single episode, unspecified E11.9 Type 2 diabetes mellitus without complications Z86.73 Prsnl hx of TIA (TIA), and cereb infrc w/o resid deficits G25.0 Essential tremor Office Visit 10/09/2018 10:10a [facility] Cam Z47.81 Encounter for trevor Jackson PA orthopedic Hospitalists aftercare following surgical amp M86.172 Other acute osteomyelitis, left ankle and foot E11.9 Type 2 diabetes mellitus without complications I73.9 Peripheral vascular disease, unspecified I25.10 [facility] heart disease of [place] coronary artery w/o ang pctrs K31.84 Gastroparesis R19.7 Diarrhea, unspecified F32.9 Major depressive disorder, single episode, unspecified I10 Essential (primary) hypertension Office Visit 10/07/2018 Orthopedic Jose Juan King, M86.172 Other acute 11:15a Services Of MD leon, left C.M.A. ankle and foot E11.621 Type 2 diabetes mellitus with foot ulcer L97.529 Non-pressure chronic ulcer oth prt left foot w unsp severity Office Visit 10/06/2018 2:15p [facility] Gastroenterology Sofi Mejias, K31.84 Gastroparesis IT INFRASTRUCTURE CONSULTANT E11.69 Type 2 diabetes mellitus with other specified complication R19.7 Diarrhea, unspecified K59.00 Constipation, unspecified Office Visit 09/22/2018 11:16a [facility] Joe R29.818 Other symptoms Assoc,trevor Ramírez M.D. and signs Hospitalists involving the nervous system E11.9 Type 2 diabetes mellitus without complications I10 Essential (primary) hypertension Office Visit 09/21/2018 [facility] [place] R25.1 Tremor, 7:00a Clinic MD Lucio unspecified R47.81 Slurred speech R29.810 Facial weakness Z86.73 Prsnl hx of TIA (TIA), and cereb infrc w/o resid deficits Office Visit 09/21/2018 [facility] Carmen R41.82 Altered mental 11:16a Assoc,trevor Lawrence, MARJORIE status, Hospitalists unspecified E11.9 Type 2 diabetes mellitus without complications F32.9 Major depressive disorder, single episode, unspecified I10 Essential (primary) hypertension Office Visit 09/12/2018 Orthopedic Jose Juan Fernando, L97.529 Non-pressure 11:00a Services Of chronic ulcer ot C.M.A. 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 Office Visit 09/09/2018 9:54a [facility] Alpa [place], J18.9 Pneumonia, Assoc,pc IT INFRASTRUCTURE CONSULTANT unspecified Hospitalists organism K31.84 Gastroparesis A41.9 Sepsis, unspecified organism L02.211 Cutaneous abscess of abdominal wall N17.9 Acute kidney failure, unspecified E11.9 Type 2 diabetes mellitus without complications I73.9 Peripheral vascular disease, unspecified F32.9 Major depressive disorder, single episode, unspecified Office Visit 09/07/2018 [facility] Tiffanie J18.9 Pneumonia, 9:54a Assoc,trevor Hope, IT INFRASTRUCTURE CONSULTANT unspecified Hospitalists organism R11.2 Nausea with vomiting, unspecified R10.11 Right upper quadrant pain L02.211 Cutaneous abscess of abdominal wall N17.9 Acute kidney failure, unspecified E11.9 Type 2 diabetes mellitus without complications I10 Essential (primary) hypertension F32.9 Major depressive disorder, single episode, unspecified Z86.79 Personal history of other diseases of the circulatory system Office Visit 07/25/2018 4:25p Braxton Bautista I70.212 [facility] Pal Mahan M.D. arteries of extrm w intrmt romelia, left leg Office Visit 07/23/2018 12:30p Braxton Bautista I70.222 [facility] Of Pal Mahan M.D. 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
--- OUTSIDE RECORDS SUMMARY | 2019-01-02 22:23 | XMS REPORT | Continuity of Care Document ---
:1955 External Reference #:[id number] Author Name Chase Faust Care Team Providers Name Role Phone Gabbie Shell MD Primary Care Physician Unavailable Payers Date Identification Numbers Payment Provider Subscriber Effective: 2010 Policy Number: [id number] [employer] Maryam Guardado PayID: [id number] [address] [place] [address] Effective: 2018 Policy Number: [id number] Medicare Pirce Guardado PayID: [id number] [address] [place] [address] Expires: 2018 Policy Number: [id number] Medicare Price Guardado PayID: [id number] [address] [place] [address] Expires: 2018 Policy Number: [id number] Medicare Price Guardado PayID: [id number] [address] [place] [address] Expires: 2018 Policy Number: [id number] [employer] Maryam Guardado Group Number: [id number] [address] PayID: [id number] [place] [address] Onset: 2015 Policy Number: [id number] Jorden Price Rg Rufinajuan francisco Group Number: [id number] [address] PayID: [id number] MAMADOU Pardo [id number] Advance Directives Description No Information Available Problems [...] Former Cigarette Smoker Unknown Smoking Status Reviewed: 12/03/18 Former Cigarette Smoker ETOH Use Rarely consumes [...] by mouth Unknown 0000 twice daily Humalog 00/ Active pump Unknown 0000 Amlodipine [...] twice a D. 11/12/ day for 14 2018 days M.D. Oxycodone HCL 10/09/ Hx Tablets [...] Hx Capsules 250mg 30caps Take 1 [facility] 2017 - capsule Fernando 06/09/ qid 2017 [...] - mouth 3 D. 01/03/ times a Ricky 2015 day M.D. Lamictal 05/13/ Hx Tablets [...] 00/ Hx Tablets ER 300mg 1 by mouth [...] Rec every 8 11/16/ hours 2015 Lisinopril 00/ Hx Tablets 20mg 1 by mouth Unknown 0000 - every day 2017 Percocet /00/ Hx Tablets 5-325mg 1 by mouth Unknown 0000 - every 4 04/21/ hours as 2018 needed pain Bentyl 00/00/ Hx Capsules 10mg take 1 Unknown 0000 - tablet by mouth with 2016 every meal Glipizide /00/ Hx Tablets 10mg 1 by mouth Unknown 0000 - once a day 2018 Tramadol HCL 00/ Hx Tablets 50mg 1 [...] Rec 24 hours through 2017 briova Docusate 00/ Hx Capsules 100mg 1 tab by Unknown 0000 - mouth 2-3 09/30/ times a 2019 day as needed Aspirin Adult / Hx Chewtabs 81mg 1 by mouth Unknown Low Strength 0000 - every day 2018 Atorvastatin 00/ Hx Tablets 10mg Take 10/01 Unknown Calcium 0000 - Tablet By 12/23/ 2019 Every Day Doxycycline / Hx Capsules 100mg one tablet Unknown Hyclate 0000 - twice 10/13/ daily 2019 Cipro 00/ Hx Tablets 500mg 1 by mouth Unknown 0000 - twice a day x 28 2018 days ([facility]) Vancomycin HCL 0000/ Hx Solution 1gm iv every Unknown 0000 - Rec 24 hours x days 2018 through ([facility]) Immunizations Description No Information Available Vital Signs Date Vital Result Comment 12/24/2018 1:48pm Height 67 inches 5'7" Weight [...] Result H/L Range Note Laboratory test 11/03/2018 [facility] Vancomycin 14.1 g/mL finding [address] [place] [address] [phone] C Reactive Protein 10.00 mg/L High <8.01 CBC Auto Diff 11/03/2018 [facility] White Blood 6.5 10^3/uL N 3.5-10.[address] [place] [address] [phone] Red Blood Count 4.48 10^6/uL N 4.00-5.40 [...] Cells % 0.1 Comp Metabolic Panel 11/03/2018 [facility] Sodium 140 mmol/L N 135-[address] [place] [address] [phone] Potassium 4.3 mmol/L N 3.5-5.0 Chloride 104 [...] Egfr 42.2 >60 1 Laboratory test 10/27/2018 [facility] Vancomycin Trough 16.1 g /mL finding [address] [place] [address] [phone] C Reactive Protein 7.76 mg/L N <8.01 CBC Auto Diff 10/27/2018 [facility] White Blood 6.5 10^3/uL N 3.5-10.[address] [place] [address] [phone] Red Blood Count 4.15 10^6/uL N 4.00-5.40 [...] Cells % 0.3 Comp Metabolic Panel 10/27/2018 [facility] Sodium 136 mmol/L N 135-[address] [place] [address] [phone] Potassium 4.9 mmol/L N 3.5-5.0 Chloride 103 [...] Egfr 39.0 >60 2 Laboratory test 10/20/2018 [facility] Vancomycin Trough 12.0 g /mL finding [address] [place] [address] [phone] C Reactive Protein 6.29 mg/L N <8.01 CBC Auto Diff 10/20/2018 [facility] White Blood 9.2 10^3/uL N 3.5-10.[address] [place] [address] [phone] Red Blood Count 3.98 10^6/uL Low 4.00-5.40 [...] Cells % 0 Comp Metabolic Panel 10/20/2018 [facility] Sodium 136 mmol/L N 135-145 [address] [place] [address] [phone] Potassium 4.8 mmol/L N 3.5-5.0 Chloride 103 [...] Egfr 50.6 >60 3 Laboratory test 10/09/2018 [facility] Point of Care 115 mg/dL High 70-100 4 finding [address] [facility] [address] [phone] Laboratory test 10/09/2018 [facility] Point of Care 312 mg/dL High 70-100 5 finding [address] [facility] [place] [address] [phone] Comp Metabolic 06/23/2018 [facility] Sodium 137 mmol/L N 135- 145 Panel [address] [place] [address] [phone] Potassium 4.9 mmol/L N 3.5-5.0 Chloride 107 [...] Egfr 51.8 >60 6 Laboratory test 06/23/2018 [facility] Vancomycin Trough 17.8 g /mL finding [address] [place] [address] [phone] C Reactive Protein 4.23 mg/L N <8.01 Comp Metabolic Panel 06/17/2018 [facility] Sodium 133 mmol/L Low 135-145 [address] [place] [address] [phone] Chloride 100 mmol/L Low 101-111 Co2 Carbon [...] mg/dL High 70-100 8 Laboratory test 06/17/2018 [facility] Vancomycin Trough 21.6 g /mL finding [address] [place] [address] [phone] C Reactive Protein 6.85 mg/L N <8.01 Laboratory test 06/13/2018 [facility] C Difficile PCR SEE RESULT [address] [place] [address] [phone] Laboratory test 06/11/2018 [facility] Vancomycin Trough 24.8 g /mL finding [address] [place] [address] [phone] C Reactive Protein 4.81 mg/L N <8.01 Comp Metabolic Panel 06/11/2018 [facility] Sodium 137 mmol/L N 135-[address] [place] [address] [phone] Potassium 4.4 mmol/L N 3.5-5.0 Chloride 102 [...] 53.3 >60 10 CBC Auto Diff 06/11/2018 [facility] White Blood 6.9 10^3/uL N 3.5-10.[address] [place] [address] [phone] Red Blood Count 3.88 10^6/uL Low 4.00-5.40 [...] Blood Cells % 0.1 Laboratory test 04/24/2018 [facility] Point of Care 234 mg/dL High 70-100 [address] [place] [address] [phone] Laboratory test 04/24/2018 [facility] Point of Care 232 mg/dL High 70-100 [address] [place] [address] [phone] Laboratory test 04/24/2018 [facility] Point of Care 281 mg/dL High 70-100 [address] [place] [address] [phone] Laboratory test 04/24/2018 [facility] Point of Care 331 mg/dL High 70-100 [address] [place] [address] [phone] Laboratory test 04/24/2018 [facility] Surgical SEE RESULT [address] [place] [address] [phone] Comp Metabolic 11/14/2015 [facility] Sodium 135 mmol/L N 133- [address] [place] [address] [phone] Potassium 5.0 mmol/L N 3.5-5.0 Chloride 101 [...] 112.9 N >60 16 Laboratory test 11/14/2015 [facility] C Reactive 2.79 mg/L N < 5.00 [address] [place] [address] [phone] CBC Auto Diff 11/14/2015 [facility] White Blood 8.0 N 3.5- 10.[address] Count 10^3/[place] [address] [phone] Red Blood Count 4.22 10^6/uL N 4.0-5.4 [...] Cells % 0.1 N Laboratory test 11/14/2015 [facility] Erythrocyte Sed 66 mm/Hr High 0-[address] [place] [address] [phone] Comp Metabolic 11/08/2015 [facility] Sodium 135 N 133-[address] mmol/[place] [address] [phone] Potassium 5.1 mmol/L High 3.5-5.0 Chloride 101 [...] 105.9 N >60 18 Laboratory test 11/08/2015 [facility] C Reactive 4.89 mg/L N < 5.00 [address] [place] [address] [phone] CBC Auto Diff 11/08/2015 [facility] White Blood 7.3 N 3.5- 10.[address] Count 10^3/[place] [address] [phone] Red Blood Count 4.45 10^6/uL N 4.0-5.4 [...] Cells % 0.6 N Laboratory test 11/08/2015 [facility] Erythrocyte Sed 77 mm/Hr High 0-[address] [place] [address] [phone] Comp Metabolic 10/31/2015 [facility] Sodium 134 N 133-[address] mmol/[place] [address] [phone] Potassium 4.3 mmol/L N 3.5-5.0 Chloride 100 [...] 102.1 N >60 20 Laboratory test 10/31/2015 [facility] C Reactive 9.73 mg/L High < 5.00 [address] [place] [address] [phone] CBC Auto Diff 10/31/2015 [facility] White Blood 9.1 N 3.5- 10.[address] Count 10^3/[place] [address] [phone] Red Blood Count 4.36 10^6/uL N 4.0-5.4 [...] Cells % 0.1 N Laboratory test 10/31/2015 [facility] Erythrocyte Sed 95 mm/Hr High 0-[address] [place] [address] [phone] CBC Auto Diff 10/24/2015 [facility] White Blood 10.3 N 3.5- 10.[address] Count 10^3/[place] [address] [phone] Red Blood Count 4.23 10^6/uL N 4.0-5.4 [...] % 0 N Comp Metabolic Panel 10/24/2015 [facility] Sodium 136 mmol/L N 133-[address] [place], [place] [phone] Potassium 4.9 mmol/L N 3.5-5.0 Chloride 102 [...] 92.0 N >60 22 Laboratory test 10/24/2015 [facility] C Reactive 15.74 mg/L High < 5.00 [address] Protein [place], [place] [phone] Laboratory test 10/13/2015 [facility] Point of Care 150 mg/dL High 74-106 [address] [place] [address] [phone] Laboratory test 10/13/2015 [facility] Wound SEE RESULT [address] Culture/Sensi [place]OW [place], [place] [phone] Tissue (BX) Culture & Gram St SEE RESULT BELOW 26 MRSA/S. aureus Ssti PCR SEE RESULT BELOW 27 Anaerobic Culture SEE RESULT BELOW 28 Laboratory test 10/13/2015 [facility] Wound Culture/Sensi SEE RESULT [address] [place] [address] [phone] Tissue (BX) Culture & Gram St SEE RESULT BELOW 30 MRSA/S. aureus Ssti PCR SEE RESULT BELOW 31 Anaerobic Culture SEE RESULT BELOW 32 Laboratory test 10/13/2015 [facility] Wound Culture/Sensi SEE RESULT [address] [place] [address] [phone] Tissue (BX) Culture & Gram St SEE RESULT BELOW 34 MRSA/S. aureus Ssti PCR SEE RESULT BELOW 35 Anaerobic Culture SEE RESULT BELOW 36 Laboratory test 10/13/2015 [facility] Wound Culture/Sensi SEE RESULT [address] [place] [address] [phone] Tissue (BX) Culture & Gram St SEE RESULT BELOW 38 MRSA/S. aureus Ssti PCR SEE RESULT BELOW 39 Anaerobic Culture SEE RESULT BELOW 40 Laboratory test 10/13/2015 [facility] Mycobacterial See Comment N [address] [place] [address] [phone] 1 Because ethnic data is not always [...] 5 Kidney failure <15 (or dialysis) 4 Chairman President And Chief Executive Officer: [id number] 5 Chairman President And Chief Executive Officer: [id number] 6 Because ethnic data is not always [...] Result [id number] Called to GONSALO at: 13:25:55 by:[id number] Read back by: GONSALO 9 SEE RESULT BELOW Name: PRICE GUARDADO : [address]: Jamar Pérez MD Acct: [id number] Unit: [id number] AGE: 62 Location: [facility] Re06/13/18 SEX: M Status: REG REF SPEC: [id number] GABO: 06/13/18-999 [facility] [address]: Jamar Pérez MD REQ: [id number] RECD: 06/13/18 STATUS: COMP _ SOURCE: STOOL SPDESC: ORDERED: C. diff PCR Procedure Result Reported Site Stool Specimen Description Final 06/13/18- 1609 ML Stool Color Brown Stool Form Formed Stool Consistency Hard C. difficile PCR Final 06/13/18- 1609 ML Test not performed * ML - Main Lab . END OF REPORT DEPARTMENT OF PATHOLOGY, [address] [place] [address] Vinayak Yanez M.D. Director [facility] # [id number] 10 Because ethnic data is not always [...] 5 Kidney failure <15 (or dialysis) 11 Chairman President And Chief Executive Officer: [id number] 12 Chairman President And Chief Executive Officer: [id number] 13 Chairman President And Chief Executive Officer: [id number] 14 Chairman President And Chief Executive Officer: [id number] 15 SEE RESULT BELOW Name: PRICE GUARDADO : [address]: Jose Juan King MD Acct: [id number] Unit: [id number] AGE: 62 Location: [place] Re04/24/18 SEX: M Status: WINIFRED SMITH SPEC: [id number] GABO: 04/24/18- SUBM DR: Jose Juan King MD REQ: [id number] RECD: 04/24/181440 STATUS: SOUT _ ORDERED: Decal, [...] margin blue and plantar margin black, and appliance service representative sections are submitted in cassettes A and B to include bone following decalcification in cassette A. Signed by and Reported on: Abby Ellis MD 04/29/18 1052 END OF REPORT DEPARTMENT OF PATHOLOGY, [address] [place] [address] Vniayak Yanez M.D. Director [facility] # [id number] 16 Because ethnic data is not always [...] (or dialysis) 23 Acute inflammation: >10.00 24 Chairman President And Chief Executive Officer: [id number] FERNANDO PETTIT 25 SEE RESULT BELOW Name: DEBBYPRICE : [address]: Jessie Lazar MD Acct: [id number] Unit: [id number] AGE: 60 Location: [facility] Re10/13/15 SEX: M Status: REG [facility] SPEC: [id number] GABO: 10/13/15-16[address] [facility] [address]: Jessie Lazar MD REQ: [id number] RECD: 10/13/15 STATUS: RES ILANAHR DR: Gabbie [...] Direct PENDING * ML - MAIN LAB ([facility]) . END OF REPORT * ML=Testing performed at Main Lab DEPARTMENT OF PATHOLOGY, [address] [place] [address] Vinayak Yanez M.D. Director [facility] # [id number] 26 SEE RESULT BELOW Name: PRICE GUARDADO Arcenio : [address]: Jessie Lazar MD Acct: [id number] Unit: [id number] AGE: 60 Location: [facility] 338- Re10/13/15 Dis: 10/19/15 SEX: M Status: DIS IN SPEC: [id number] GABO: 10/13/15-16[address] [facility] [address]: Jessie Lazar MD REQ: [id number] RECD: 10/13/15 STATUS: RES OTHR DR: Gabbie Shell MD _ SOURCE: WOUND SPDESC:KNEE LEFT ORDERED: Tissue Cult/GS/R, Fungal - Other/R, Acid Fast Stain/U COMMENTS: CLOSTRIDIUM FINDINGS IN ADDITION TO S. AUREUS: Verbal to DR. SHELL by [id number] at 1411 on 10/15/15. Results read back [...] performed at Main Lab DEPARTMENT OF PATHOLOGY, [address] [place] [address] Vinayak Yanez M.D. Director [facility] # [id number] Patient: PRICE GUARDADO [id number] (Continued) Specimen: [id number] Collected: 10/13/15 Received: 10/13/15094 (Continued) Procedure Result Reported Site Acid Fast Stain - Direct Final (continued) 10/14/15817 Due to limited sensitivity of the smear, results should be used as an adjunct in evaluating the patient's status and cultural examination is highly recommended for diagnosis. * ML - MAIN LAB ([facility]) . END OF REPORT * ML=Testing performed at Main Lab DEPARTMENT OF PATHOLOGY, [address] [place] [address] Vinayak Yanez M.D. Director [facility] # [id number] 27 SEE RESULT BELOW Name: PRICE GUARDADO : [address]: Jessie Lazar MD Acct: [id number] Unit: [id number] AGE: 60 Location: [place] [address] Re10/13/15 SEX: M Status: ADM IN SPEC: [id number] GABO: 10/13/15-1640 [facility] [address]: Jessie Lazar MD REQ: [id number] RECD: 10/13/15 STATUS: RES OTHR DR: Gabbie Shell MD _ SOURCE: WOUND SPDESC:KNEE LEFT ORDERED: Anaerobic Cult/R, MRSA/SA SSTI/R, Culture Stain/R, Fungal - Other /R, Acid Fast Stain/U COMMENTS: Verbal to GEMINI CHAWLA by [id number] at 2020 on 10/13/15. Results read back [...] performed at Main Lab DEPARTMENT OF PATHOLOGY, [address] [place] [address] Vinayak Yanez M.D. Director [facility] # [id number] Patient: PRICE GUARDADO [id number] (Continued) Specimen: [id number] Collected: 10/13/15-1639 Received: 10/13/15-1753 (Continued) Procedure Result Reported Site Acid Fast Stain - Direct Final (continued) 10/14/15809 Due to limited sensitivity of the smear, results should be used as an adjunct in evaluating the patient's status and cultural examination is highly recommended for diagnosis. * ML - MAIN LAB ([facility]) . END OF REPORT * ML=Testing performed at Main Lab DEPARTMENT OF PATHOLOGY, [address] [place] [address] Vinayak Yanez M.D. Director [place] # [id number] 28 SEE RESULT BELOW Name: PRICE GUARDADO : [address]: Jessie Lazar MD Acct: [id number] Unit: [id number] AGE: 60 Location: [facility] 338-01 Re10/13/15 Dis: 10/19/15 SEX: M Status: DIS IN SPEC: [id number] GABO: 10/13/15-[address]: Jessie Lazar MD REQ: [id number] RECD: 10/13/15 STATUS: RES OTHR DR: Gabbie Shell MD _ SOURCE: WOUND SPDESC:KNEE LEFT ORDERED: Anaerobic Cult/R, MRSA/SA SSTI/R, Culture Stain/R, Fungal - Other /R, Acid Fast Stain/U COMMENTS: Verbal to GEMINI CHAWLA by [id number] at 2020 on 10/13/15. Results read back accurately. CLOSTRIDIUM FINDINGS IN ADDITION TO S. AUREUS: Verbal to DR. SHELL by [id number] at 1411 on 10/15/15. Results read back [...] performed at Main Lab DEPARTMENT OF PATHOLOGY, [address] [place] [address] Vinayak Yanez M.D. Director [facility] # [id number] Patient: PRICE GUARDADO [id number] (Continued) Specimen: [id number] Collected: 10/13/15 Received: 10/13/15600 (Continued) Procedure Result Reported Site Wound/Misc Culture [...] These antibiotics are not available in the [facility] Formulary Contact the Microbiology Department for any additional antibiotic reporting. Fungal Cult - Other Sources Preliminary 10/24/15- 1325 ML Fungal Culture No Growth of Mycotic Organisms 1 week Acid Fast Stain - Direct Final 10/14/15- 0810 ML CONTINUED ON NEXT PAGE * ML=Testing performed at Main Lab DEPARTMENT OF PATHOLOGY, [address] [place] [address] Vinayak Yanez M.D. Director [facility] # [id number] Patient: PRICE GUARDADO [id number] (Continued) Specimen: [id number] Collected: 10/13/15 Received: 10/13/15 (Continued) Procedure Result Reported Site Acid Fast Stain - Direct Final (continued) 10/14/15809 AFB Smear Result No Acid Fast Bacillus Present (Negative) Preparation By Direct Smear Due to limited sensitivity of the smear, results should be used as an adjunct in evaluating the patient's status and cultural examination is highly recommended for diagnosis. * ML - MAIN LAB ([facility]) . END OF REPORT * ML=Testing performed at Main Lab DEPARTMENT OF PATHOLOGY, [address] [place] [address] Vinayak Yanez M.D. Director [facility] # [id number] 29 SEE RESULT BELOW Name: PRICE GUARDADO Arcenio : [address]: Jessie Lazar MD Acct: [id number] Unit: [id number] AGE: 60 Location: [facility] Re10/13/15 SEX: M Status: REG SDC SPEC: [id number] GABO: 10/13/15-16[address] [facility] [address]: Jessie Lazar MD REQ: [id number] RECD: 10/13/15 STATUS: RES OTHR DR: Gabbie [...] Direct PENDING * ML - MAIN LAB ([facility]) . END OF REPORT * ML=Testing performed at Main Lab DEPARTMENT OF PATHOLOGY, [address] [place] [address] Vinayak Yanez M.D. Director [facility] # [id number] 30 SEE RESULT BELOW Name: PRICE GUARDADO : [address]: Jessie Lazar MD Acct: [id number] Unit: [id number] AGE: 60 Location: [facility] 338-01 Re10/13/15 Dis: 10/19/15 SEX: M Status: DIS IN SPEC: [id number] GABO: 10/13/15-[address]: Jessie Lazar MD REQ: [id number] RECD: 10/13/15 STATUS: RES OTHR DR: Gabbie Shell MD _ SOURCE: WOUND SPDESC:KNEE LEFT ORDERED: Tissue Cult/GS/R, Fungal - Other/R, Acid Fast Stain/U COMMENTS: CLOSTRIDIUM FINDINGS IN ADDITION TO S. AUREUS: Verbal to DR. SHELL by [id number] at 1411 on 10/15/15. Results read back [...] performed at Main Lab DEPARTMENT OF PATHOLOGY, [address] [place] [address] Vinayak Yanez M.D. Director [facility] # [id number] Patient: DEBBYPRICE Arcenio [id number] (Continued) Specimen: [id number] Collected: 10/13/15 Received: 10/13/15 (Continued) Procedure Result Reported Site Acid Fast Stain - Direct Final (continued) 10/14/15817 Due to limited sensitivity of the smear, results should be used as an adjunct in evaluating the patient's status and cultural examination is highly recommended for diagnosis. * ML - MAIN LAB ([facility]) . END OF REPORT * ML=Testing performed at Main Lab DEPARTMENT OF PATHOLOGY, [address] [place] [address] Vinayak Yanez M.D. Director [facility] # [id number] 31 SEE RESULT BELOW Name: PRICE GUARDADO : [address]: Jessie Lazar MD Acct: [id number] Unit: [id number] AGE: 60 Location: [facility] 338-01 Re10/13/15 SEX: M Status: ADM IN SPEC: [id number] GABO: 10/13/15-1640 [facility] [address]: Jessie Lazar MD REQ: [id number] RECD: 10/13/15 STATUS: RES OTHR DR: Gabbie Shell MD _ SOURCE: WOUND SPDESC:KNEE LEFT ORDERED: Anaerobic Cult/R, MRSA/SA SSTI/R, Culture Stain/R, Fungal - Other /R, Acid Fast Stain/U COMMENTS: Verbal to GEMINI CHAWLA by [id number] at 2020 on 10/13/15. Results read back [...] performed at Main Lab DEPARTMENT OF PATHOLOGY, [address] [place] [address] Vinayak Yanez M.D. Director [facility] # [id number] Patient: PRICE GUARDADO [id number] (Continued) Specimen: [id number] Collected: 10/13/15 Received: 10/13/15 (Continued) Procedure Result Reported Site Acid Fast Stain - Direct Final (continued) 10/14/15809 Due to limited sensitivity of the smear, results should be used as an adjunct in evaluating the patient's status and cultural examination is highly recommended for diagnosis. * ML - MAIN LAB ([facility]) . END OF REPORT * ML=Testing performed at Main Lab DEPARTMENT OF PATHOLOGY, [address] [place] [address] Vinayak Yanez M.D. Director [facility] # [id number] 32 SEE RESULT BELOW Name: DEBBYPRICE C : [address]: Jessie Lazar MD Acct: [id number] Unit: [id number] AGE: 60 Location: [place] [address] Re10/13/15 Dis: 10/19/15 SEX: M Status: DIS IN SPEC: [id number] GABO: 10/13/15-1640 [facility] [address]: Jessie Lazar MD REQ: [id number] RECD: 10/13/15815 STATUS: RES OTHR DR: Gabbie Shell MD _ SOURCE: WOUND SPDESC:KNEE LEFT ORDERED: Anaerobic Cult/R, MRSA/SA SSTI/R, Culture Stain/R, Fungal - Other /R, Acid Fast Stain/U COMMENTS: Verbal to GEMINI CHAWLA by [id number] at 2020 on 10/13/15. Results read back accurately. CLOSTRIDIUM FINDINGS IN ADDITION TO S. AUREUS: Verbal to DR. SHELL by [id number] at 1411 on 10/15/15. Results read back [...] performed at Main Lab DEPARTMENT OF PATHOLOGY, [address] [place] [address] Vinayak Yanez M.D. Director [facility] # [id number] Patient: PRICE GUARDADO [id number] (Continued) Specimen: [id number] Collected: 10/13/15 Received: 10/13/15 (Continued) Procedure Result [...] These antibiotics are not available in the [facility] Formulary Contact the Microbiology Department for any additional antibiotic reporting. Fungal Cult - Other Sources Preliminary 10/31/15- 1443 ML Fungal Culture No Growth of Mycotic Organisms 2 weeks Acid Fast Stain - Direct Final 10/14/15- 0810 ML CONTINUED ON NEXT PAGE * ML=Testing performed at Main Lab DEPARTMENT OF PATHOLOGY, [address] [place] [address] Vinayak Yanez M.D. Director [facility] # [id number] Patient: PRICE GUARDADO [id number] (Continued) Specimen: [id number] Collected: 10/13/15-1639 Received: 10/13/15175 (Continued) Procedure Result Reported Site Acid Fast Stain - Direct Final (continued) 10/14/15- 08 AFB Smear Result No Acid Fast Bacillus Present (Negative) Preparation By Direct Smear Due to limited sensitivity of the smear, results should be used as an adjunct in evaluating the patient's status and cultural examination is highly recommended for diagnosis. * ML - MAIN LAB ([facility]) . END OF REPORT * ML=Testing performed at Main Lab DEPARTMENT OF PATHOLOGY, [address] [place] [address] Vinayak Yanez M.D. Director [facility] # [id number] 33 SEE RESULT BELOW Name: PRICE GUARDADO : [address]: Jessie Lazar MD Acct: [id number] Unit: [id number] AGE: 60 Location: [facility] Re10/13/15 SEX: M Status: REG [facility] SPEC: [id number] GABO: 10/13/15-1640 [facility] DR: Jessie Lazar MD REQ: [id number] RECD: 10/13/15 STATUS: RES OTHR DR: Gabbie [...] Direct PENDING * ML - MAIN LAB ([facility]) . END OF REPORT * ML=Testing performed at Main Lab DEPARTMENT OF PATHOLOGY, [address] [place] [address] Vinayak Yanez M.D. Director [facility] # [id number] 34 SEE RESULT BELOW Name: DEBBYPRICE C : [address]: Jessie Lazar MD Acct: [id number] Unit: [id number] AGE: 60 Location: [facility] 338-01 Re10/13/15 Dis: 10/19/15 SEX: M Status: DIS IN SPEC: [id number] GABO: 10/13/15-1640 [facility] [address]: Jessie Lazar MD REQ: [id number] RECD: 10/13/15 STATUS: RES OTHR DR: Gabbie Shlel MD _ SOURCE: WOUND SPDESC:KNEE LEFT ORDERED: Tissue Cult/GS/R, Fungal - Other/R, Acid Fast Stain/U COMMENTS: CLOSTRIDIUM FINDINGS IN ADDITION TO S. AUREUS: Verbal to DR. SHELL by [id number] at 1411 on 10/15/15. Results read back [...] performed at Main Lab DEPARTMENT OF PATHOLOGY, [address] [place] [address] Vinayak Yanez M.D. Director [facility] # [id number] Patient: PRICE GUARDADO [id number] (Continued) Specimen: [id number] Collected: 10/13/15-1639 Received: 10/13/15-1755 (Continued) Procedure Result Reported Site Acid Fast Stain - Direct Final (continued) 10/14/15- 817 Due to limited sensitivity of the smear, results should be used as an adjunct in evaluating the patient's status and cultural examination is highly recommended for diagnosis. * ML - MAIN LAB ([facility]) . END OF REPORT * ML=Testing performed at Main Lab DEPARTMENT OF PATHOLOGY, [address] [place] [address] Vinayak Yanez M.D. Director [facility] # [id number] 35 SEE RESULT BELOW Name: PRICE GUARDADO : [address]: Jessie Lazar MD Acct: [id number] Unit: [id number] AGE: 60 Location: [place] [address]- Re10/13/15 SEX: M Status: ADM IN SPEC: [id number] GABO: 10/13/15-1640 [facility] [address]: Jessie Lazar MD REQ: [id number] RECD: 10/13/151754 STATUS: RES OTHR DR: Gabbie Shell MD _ SOURCE: WOUND SPDESC:KNEE LEFT ORDERED: Anaerobic Cult/R, MRSA/SA SSTI/R, Culture Stain/R, Fungal - Other /R, Acid Fast Stain/U COMMENTS: Verbal to GEMINI CHAWLA by [id number] at 2020 on 10/13/15. Results read back [...] performed at Main Lab DEPARTMENT OF PATHOLOGY, [address] [place] [address] Vinayak Yanez M.D. Director [facility] # [id number] Patient: PRICE GUARDADO [id number] (Continued) Specimen: [id number] Collected: 10/13/15 Received: 10/13/15 (Continued) Procedure Result Reported Site Acid Fast Stain - Direct Final (continued) 10/14/15809 Due to limited sensitivity of the smear, results should be used as an adjunct in evaluating the patient's status and cultural examination is highly recommended for diagnosis. * ML - MAIN LAB ([facility]) . END OF REPORT * ML=Testing performed at Main Lab DEPARTMENT OF PATHOLOGY, [address] [place] [address] Vinayak Yanez M.D. Director [facility] # [id number] 36 SEE RESULT BELOW Name: PRICE GUARDADO : [address]: Jessie Lazar MD Acct: [id number] Unit: [id number] AGE: 60 Location: [facility] 338-01 Re10/13/15 Dis: 10/19/15 SEX: M Status: DIS IN SPEC: [id number] GABO: 10/13/15-[address]: Jessei Lazar MD REQ: [id number] RECD: 10/13/15 STATUS: RES OTHR DR: Gabbie Shell MD _ SOURCE: WOUND SPDESC:KNEE LEFT ORDERED: Anaerobic Cult/R, MRSA/SA SSTI/R, Culture Stain/R, Fungal - Other /R, Acid Fast Stain/U COMMENTS: Verbal to GEMINI CHAWLA by [id number] at 2020 on 10/13/15. Results read back accurately. CLOSTRIDIUM FINDINGS IN ADDITION TO S. AUREUS: Verbal to DR. SHELL by [id number] at 1411 on 10/15/15. Results read back [...] performed at Main Lab DEPARTMENT OF PATHOLOGY, [address] [place] [address] Vinayak Yanez M.D. Director [facility] # [id number] Patient: PRICE GUARDADO [id number] (Continued) Specimen: [id number] Collected: 10/13/15-1639 Received: 10/13/15 (Continued) Procedure Result [...] These antibiotics are not available in the [facility] Formulary Contact the Microbiology Department for any additional antibiotic reporting. Fungal Cult - Other Sources Preliminary 11/07/15- 1229 ML Fungal Culture No Growth of Mycotic Organisms 3 weeks Acid Fast Stain - Direct Final 10/14/15- 0810 ML CONTINUED ON NEXT PAGE * ML=Testing performed at Main Lab DEPARTMENT OF PATHOLOGY, [address] [place] [address] Vinayak Yanez M.D. Director [facility] # [id number] Patient: PRICE GUARDADO [id number] (Continued) Specimen: [id number] Collected: 10/13/15 Received: 10/13/15 (Continued) Procedure Result Reported Site Acid Fast Stain - Direct Final (continued) 10/14/15809 AFB Smear Result No Acid Fast Bacillus Present (Negative) Preparation By Direct Smear Due to limited sensitivity of the smear, results should be used as an adjunct in evaluating the patient's status and cultural examination is highly recommended for diagnosis. * ML - MAIN LAB ([facility]) . END OF REPORT * ML=Testing performed at Main Lab DEPARTMENT OF PATHOLOGY, [address] [place] [address] Vinayak Yanez M.D. Director [facility] # [id number] 37 SEE RESULT BELOW Name: DEBBYPRICE : [address]: Jessie Lazar MD Acct: [id number] Unit: [id number] AGE: 60 Location: [facility] Re10/13/15 SEX: M Status: REG SDC SPEC: [id number] GABO: 10/13/15-16[address] [facility] [address]: Jessie Lazar MD REQ: [id number] RECD: 10/13/15468 STATUS: RES OTHR DR: Gabbie Shell MD [...] performed at Main Lab DEPARTMENT OF PATHOLOGY, [address] [place] [address] Vinayak Yanez M.D. Director [facility] # [id number] 38 SEE RESULT BELOW Name: PRICE GUARDADO : [address]: Jessie Lazar MD Acct: [id number] Unit: [id number] AGE: 60 Location: [facility] 338-01 Re10/13/15 Dis: 10/19/15 SEX: M Status: DIS IN SPEC: [id number] GABO: 10/13/15-16[address] [facility] [address]: Jessie Lazar MD REQ: [id number] RECD: 10/13/15 STATUS: COMP [facility] DR: Gabbie Shell MD _ SOURCE: WOUND SPDESC:KNEE LEFT ORDERED: Tissue Cult/GS/R, Fungal - Other/R, Acid Fast Stain/U COMMENTS: CLOSTRIDIUM FINDINGS IN ADDITION TO S. AUREUS: Verbal to DR. SHELL by [id number] at 1411 on 10/15/15. Results read back [...] performed at Main Lab DEPARTMENT OF PATHOLOGY, [address] [place] [address] Vinayak Yanez M.D. Director [facility] # [id number] Patient: DEBBYPRICE [id number] (Continued) Specimen: [id number] Collected: 10/13/15-1639 Received: 10/13/15-520 (Continued) Procedure Result Reported Site Acid Fast Stain - Direct Final (continued) 10/14/15- 817 Due to limited sensitivity of the smear, results should be used as an adjunct in evaluating the patient's status and cultural examination is highly recommended for diagnosis. * ML - MAIN LAB ([facility]) . END OF REPORT * ML=Testing performed at Main Lab DEPARTMENT OF PATHOLOGY, [address] [place] [address] Vinayak Yanez M.D. Director [facility] # [id number] 39 SEE RESULT BELOW Name: PRICE GUARDADO : [address]: Jessie Lazar MD Acct: [id number] Unit: [id number] AGE: 60 Location: [facility] 338-01 Re10/13/15 SEX: M Status: ADM IN SPEC: [id number] GABO: 10/13/15-[address]: Jessie Lazar MD REQ: [id number] RECD: 10/13/15 STATUS: RES OTHR DR: Gabbie Shell MD _ SOURCE: WOUND SPDESC:KNEE LEFT ORDERED: Anaerobic Cult/R, MRSA/SA SSTI/R, Culture Stain/R, Fungal - Other /R, Acid Fast Stain/U COMMENTS: Verbal to GEMINI AMY CHAWLA by [id number] at 2020 on 10/13/15. Results read back [...] performed at Main Lab DEPARTMENT OF PATHOLOGY, [address] [place] [address] Vinayak Yanez M.D. Director [facility] # [id number] Patient: PRICE GUARDADO [id number] (Continued) Specimen: [id number] Collected: 10/13/15 Received: 10/13/15 (Continued) Procedure Result Reported Site Acid Fast Stain - Direct Final (continued) 10/14/15 79 Due to limited sensitivity of the smear, results should be used as an adjunct in evaluating the patient's status and cultural examination is highly recommended for diagnosis. * ML - MAIN LAB ([facility]) . END OF REPORT * ML=Testing performed at Main Lab DEPARTMENT OF PATHOLOGY, [address] [place] [address] Vinayak Yanez M.D. Director [facility] # [id number] 40 SEE RESULT BELOW Name: PRICE GUARDADO : [address]: Jessie Lazar MD Acct: [id number] Unit: [id number] AGE: 60 Location: [facility] 338- Re10/13/15 Dis: 10/19/15 SEX: M Status: DIS IN SPEC: [id number] GABO: 10/13/15-[address] [facility] [address]: Jessie Lazar MD REQ: [id number] RECD: 10/13/151754 STATUS: [facility]OLOR[facility] DR: Gabbie Shell MD _ SOURCE: WOUND SPDESC:KNEE LEFT ORDERED: Anaerobic Cult/R, MRSA/SA SSTI/R, Culture Stain/R, Fungal - Other /R, Acid Fast Stain/U COMMENTS: Verbal to GEMINI CHAWLA by [id number] at 2020 on 10/13/15. Results read back accurately. CLOSTRIDIUM FINDINGS IN ADDITION TO S. AUREUS: Verbal to DR. SHELL by [id number] at 1411 on 10/15/15. Results read back [...] performed at Main Lab DEPARTMENT OF PATHOLOGY, [address] [place] [address] Vinayak Yanez M.D. Director [facility] # [id number] Patient: PRICE GUARDADO [id number] (Continued) Specimen: [id number] Collected: 10/13/15-1639 Received: 10/13/15 (Continued) Procedure Result [...] These antibiotics are not available in the [facility] Formulary Contact the Microbiology Department for any additional antibiotic reporting. Fungal Cult - Other Sources Final 11/14/15- 1427 ML Fungal Culture No Growth of Mycotic Organisms 4 weeks Acid Fast Stain - Direct Final 10/14/15- 0810 ML CONTINUED ON NEXT PAGE * ML=Testing performed at Main Lab DEPARTMENT OF PATHOLOGY, [address] [place] [address] Vinayak Yanez M.D. Director [facility] # [id number] Patient: PRICE GUARDADO [id number] (Continued) Specimen: [id number] Collected: 10/13/15-1639 Received: 10/13/15-1753 (Continued) Procedure Result Reported Site Acid Fast Stain - Direct Final (continued) 10/14/15809 AFB Smear Result No Acid Fast Bacillus Present (Negative) Preparation By Direct Smear Due to limited sensitivity of the smear, results should be used as an adjunct in evaluating the patient's status and cultural examination is highly recommended for diagnosis. * ML - MAIN LAB ([facility]) . END OF REPORT * ML=Testing performed at Main Lab DEPARTMENT OF PATHOLOGY, [address] [place] [address] Vinayak Yanez M.D. Director [facility] # [id number] 41 SOURCE: KNEE, KNEE WOUND SWAB MYCOBACTERIAL CULTURE FINAL No growth after 60 days of incubation. Test Performed by: [place] [address] Fine Arts Instructor: Cam Isidro II, M.D., Ph.D. Procedures Date Code Description Status 10/11/2018 35217 EKG, Interpretation Only Completed 10/09/2018 63758 Amputation,Toe;Interphalangeal Joint Completed 10/09/2018 83938 Amputation,Toe;Interphalangeal Joint Completed 10/09/2018 33950 Amputation,Toe;Interphalangeal Joint Completed 09/22/2018 06027 EEG Recording Awake & Drowsy Completed 05/29/2018 93851 Incision Bone Cortex Foot Completed 05/29/2018 90990 Layer Closure Of Wounds 2.6CM - 7.5CM Completed Neck,Hands,Feet,Genitalia 05/29/2018 76772 Layer Closure Of Wounds 2.6CM - 7.5CM Completed Neck,Hands,Feet,Genitalia 05/29/2018 71203 Debridement Tissue/Muscle/Bone Completed 05/27/2018 97209 EKG, Interpretation Only Completed 04/24/2018 09463 Amputation,Toe;Interphalangeal Joint Completed 04/24/2018 13420 Amputation,Toe;Interphalangeal Joint Completed 04/24/2018 08447 Amputation,Toe;Interphalangeal Joint Completed 04/24/2018 16285 Amputation,Toe;Interphalangeal Joint Completed 04/24/2018 15669 Amputation,Toe;Interphalangeal Joint Completed 04/18/2018 82483 Revascularization,Endovascular W/Atherectomy, Inc Completed Angioplasty 04/18/2018 00503 Revascularization,Endovascular W/Atherectomy, Inc Completed Angioplasty 04/18/2018 30859 Angio Extremity, Bilateral Completed 04/18/2018 08851 Ultrasound Guidance For Vascular Access Completed 04/18/2018 84568 Moderate Sedation Services; Same Phys Intl 15 Mins; PT Completed >=5 Years 04/18/2018 36452 Moderate Sedation Services; Same Phys Each Additional Completed 15 Mins 12/10/2016 98007 ECHO Transthorasic Realtime 2D W Doppler & Color Flow Completed Hosp 12/09/2016 12375 EKG, Interpretation Only Completed 01/10/2016 60329 Treadmill Interp/Report Only Completed 01/10/2016 07381 Stress Test Supervsn W/Out I/R Completed 10/15/2015 79488 Arthroscopy,Knee For Infection,Lavage & Drainage Completed 10/15/2015 77933 Arthroscopy,Knee For Infection,Lavage & Drainage Completed 10/15/2015 95118 Arthroscopy,Knee For Infection,Lavage & Drainage Completed 10/15/2015 31794 Arthroscopy,Knee For Infection,Lavage & Drainage Completed 10/13/2015 04587 Arthroscopy,Knee,Meniscectomy Medial Or Lateral Completed 10/13/2015 37785 Arthroscopy,Knee,Meniscectomy Medial Or Lateral Completed 10/13/2015 93574 Arthroscopy,Knee For Infection,Lavage & Drainage Completed 05/18/2013 58444 EEG Recording Awake & Asleep Completed 03/13/2013 05639 Color Flow Doppler/Interp & Reprt Completed 03/13/2013 13894 Pulse Wave/Continuous-Interp.RPT Completed 03/13/2013 02986 Echocardiography, Transesophageal, Real Time W/Image 2D Completed W/W/O M-M 11/11/2012 70648348 Colonoscopy Completed Encounters Type Date Location Provider Dx Diagnosis Office Visit 11/13/2018 [facility] For Jamar Jordan E11.69 Type 2 diabetes 1:20p Infectious Gabrielle Pérez mellitus with other Diseases specified complication Z89.422 Acquired absence of other left toe(s) M86.172 Other acute osteomyelitis, left ankle and foot Office Visit 10/23/2018 [facility] Jamar Jordan M86.9 Osteomyelitis, 2:00p For Infectious Gabrielle Pérez unspecified Diseases E11.69 Type 2 diabetes mellitus with other specified complication Z79.2 halfway (current) use of antibiotics Z89.422 Acquired absence of other left toe(s) Office Visit 10/13/2018 [facility] Z98.890 Other specified 10:11a Assoctrevor NP postprocedural Hospitalists states M86.9 Osteomyelitis, unspecified K52.9 Noninfective gastroenteritis and colitis, unspecified E11.9 Type 2 diabetes mellitus without complications Z86.73 Prsnl hx of TIA (TIA), and cereb infrc w/o resid deficits G25.0 Essential tremor I73.9 Peripheral vascular disease, unspecified Office Visit 10/12/2018 [facility] Z98.890 Other specified 10:11a trevor Jackson NP postprocedural Hospitalists states M86.9 Osteomyelitis, unspecified R19.7 Diarrhea, unspecified E11.9 Type 2 diabetes mellitus without complications Z86.73 Prsnl hx of TIA (TIA), and cereb infrc w/o resid deficits G25.0 Essential tremor I73.9 Peripheral vascular disease, unspecified Office Visit 10/11/2018 [facility] Z98.890 Other specified 10:10a trevor Jackson PA postprocedural Hospitalists states M86.9 Osteomyelitis, unspecified I73.9 Peripheral vascular disease, unspecified K52.9 Noninfective gastroenteritis and colitis, unspecified F32.9 Major depressive disorder, single episode, unspecified E11.9 Type 2 diabetes mellitus without complications Z86.73 Prsnl hx of TIA (TIA), and cereb infrc w/o resid deficits G25.0 Essential tremor Office Visit 10/10/2018 12:10p [facility] Jamar Jordan E11.52 Type 2 diabetes Infectious Gabrielle Pérez w diabetic Diseases peripheral angiopathy w gangrene E11.69 Type 2 diabetes mellitus with other specified complication M86.172 Other acute osteomyelitis, left ankle and foot E11.40 Type 2 diabetes mellitus with diabetic neuropathy, unsp Office Visit 10/10/2018 [facility] Z98.890 Other specified 10:10a Assoc,SAIDA Morgan postprocedural Hospitalists states M86.9 Osteomyelitis, unspecified I73.9 Peripheral vascular disease, unspecified K52.9 Noninfective gastroenteritis and colitis, unspecified F32.9 Major depressive disorder, single episode, unspecified E11.9 Type 2 diabetes mellitus without complications Z86.73 Prsnl hx of TIA (TIA), and cereb infrc w/o resid deficits G25.0 Essential tremor Office Visit 10/09/2018 10:10a [facility] Z47.81 Encounter for Assoc,SAIDA Morgan orthopedic Hospitalists aftercare following surgical amp M86.172 Other acute osteomyelitis, left ankle and foot E11.9 Type 2 diabetes mellitus without complications I73.9 Peripheral vascular disease, unspecified I25.10 Athscl heart disease of [place] coronary artery w/o ang pctrs K31.84 Gastroparesis R19.7 Diarrhea, unspecified F32.9 Major depressive disorder, single episode, unspecified I10 Essential (primary) hypertension Office Visit 10/07/2018 Orthopedic Jose Juan King, M86.172 Other acute 11:15a Services Of osteomyelitis, left C.M.A. 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 and signs Hospitalists involving the nervous system E11.9 Type 2 diabetes mellitus without complications I10 Essential (primary) hypertension Office Visit 09/21/2018 [facility] R25.1 Tremor, 7:00a Clinic MD Lucio unspecified R47.81 Slurred speech R29.810 Facial weakness Z86.73 Prsnl hx of TIA (TIA), and cereb infrc w/o resid deficits Office Visit 09/21/2018 [facility] Carmen R41.82 Altered mental 11:16a Assoc,trevor Lawrence NP status, Hospitalists unspecified E11.9 Type 2 diabetes [...] chronic osteomyelitis, left ankle and foot Z79.84 auditor/quality (current) use of oral hypoglycemic drugs Office Visit 09/09/2018 9:54a [facility] [place], J18.9 Pneumonia, Assoc,pc [employer]ATOR REPAIRER unspecified Hospitalists organism K31.84 Gastroparesis A41.9 Sepsis, unspecified organism L02.211 Cutaneous abscess of abdominal wall N17.9 Acute kidney failure, unspecified E11.9 Type 2 diabetes mellitus without complications I73.9 Peripheral vascular disease, unspecified F32.9 Major depressive disorder, single episode, unspecified Office Visit 09/07/2018 [facility] Tiffanie J18.9 Pneumonia, 9:54a Assoc,pc Jayy, [employer] REPAIRER unspecified Hospitalists organism R11.2 Nausea with vomiting, unspecified R10.11 Right upper quadrant pain L02.211 Cutaneous abscess of abdominal wall N17.9 Acute kidney failure, unspecified E11.9 Type 2 diabetes mellitus without complications I10 Essential (primary) hypertension F32.9 Major depressive disorder, single episode, unspecified Z86.79 Personal history of other diseases of the circulatory system Office Visit 07/25/2018 4:25p Chi Allan Bautista I70.212 [facility] [place] [facility] Mahan M.D. arteries of extrm w intrmt romelia, left leg Office Visit 07/23/2018 12:30p Braxton Bautista I70.222 [facility] [place] [facility] M.D. arteries of extremities w rest pain, left leg Office Visit 06/16/2018 1:20p [facility] Jamar Jordan T87.44 Infection of Infectious [place], amputation stump, Diseases M.D. left lower extremity T81.31xA Disruption of external operation (surgical) wound, NEC, init I73.9 Peripheral vascular disease, unspecified Z79.2 halfway (current) use of antibiotics R19.7 Diarrhea, unspecified E11.51 Type 2 diabetes w diabetic 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 E11.69 Type 2 diabetes mellitus with other specified complication Office Visit 06/04/2018 1:00p [facility] Jamar Jordan T87.44 Infection of Infectious Mac, MAdriannaD. 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 Office Visit 06/03/2018 [facility] T81.31xD Disruption of 2:51p Assoc,trevor Bradley, external Hospitalists [employer] REPA[employer] operation (surgical) wound, NEC, subs F32.9 Major depressive disorder, single episode, unspecified N17.9 Acute kidney failure, unspecified E11.9 Type 2 diabetes mellitus without complications I73.9 Peripheral vascular disease, unspecified Office Visit 06/02/2018 [facility] T81.31xD Disruption of 2:50p Assoc, Suzie Bardley, external Hospitalists [employer] REPAIRER operation (surgical) wound, NEC, subs F32.9 Major depressive disorder, single episode, unspecified N17.9 Acute kidney failure, unspecified E11.9 Type 2 diabetes mellitus without complications I73.9 Peripheral vascular disease, unspecified Office Visit 06/01/2018 [facility] T81.31xD Disruption of 2:50p Assoc, Suzie Bradley, external Hospitalists [employer] GENERATOR REPAIRER operation (surgical) wound, NEC, subs F32.9 Major depressive disorder, single episode, unspecified N17.9 Acute kidney failure, unspecified E11.9 Type 2 diabetes mellitus without complications I73.9 Peripheral vascular disease, unspecified Office Visit 05/31/2018 [facility] Steffanie T81.31xA Disruption of 2:50p Assoc,trevor Bradley, external Hospitalists [employer] REPA[employer]ER operation (surgical) wound, NEC, init F32.9 Major depressive disorder, single episode, unspecified N17.9 Acute kidney failure, unspecified E11.9 Type 2 diabetes mellitus without complications I73.9 Peripheral vascular disease, unspecified Office Visit 05/30/2018 [facility] T81.31xD Disruption of 2:49p Assoc,pc Jayy, AUT[employer] REPAIRER external Hospitalists operation (surgical) wound, NEC, subs I73.9 Peripheral vascular disease, unspecified E11.9 Type 2 diabetes mellitus without complications Office Visit 05/29/2018 [facility] T81.31xD Disruption of 2:49p Assoc,trevor Hope, AUT[employer] GENERATOR REPAIRER external Hospitalists operation (surgical) wound, NEC, subs N17.9 Acute kidney failure, unspecified I73.9 Peripheral vascular disease, unspecified E11.9 Type 2 diabetes mellitus without complications Office Visit 05/28/2018 2:17p Orthopedic Jyoti Mcdaniels, L03.116 Cellulitis of [facility] [place] left lower limb C.M.A. T81.31xA Disruption of external operation (surgical) wound, NEC, init Office Visit 05/28/2018 [facility] T81.31xD Disruption of 2:48p Assoc,trevor Hope, AUTOM[employer] GENERATOR REPAIRER external Hospitalists operation (surgical) wound, NEC, subs N17.9 Acute kidney failure, unspecified I73.9 Peripheral vascular disease, unspecified E11.9 Type 2 diabetes mellitus without complications Office Visit 05/28/2018 12:39p [facility] Jamar Jordan T87.81 Dehiscence of Infectious Gabrielle Pérez amputation stump Diseases T87.44 Infection of amputation stump, left lower extremity Z89.412 Acquired absence of left great toe E11.69 Type 2 diabetes mellitus with other specified complication M86.172 Other acute osteomyelitis, left ankle and foot Office Visit 05/27/2018 [facility] T81.31xD Disruption of 2:48p Assoc,pc Hope, AUTOM[employer] GENERATOR REPAIRER external Hospitalists operation (surgical) wound, NEC, subs Z89.412 Acquired absence of left great toe 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 Z79.4 auditor/quality (current) use of insulin I73.9 Peripheral vascular disease, unspecified Z71.6 Tobacco abuse counseling Office Visit 05/08/2018 1:40p [facility] Jamar Jordan Z89.412 Acquired Infectious Gabrielle Pérez absence of Diseases left great toe 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 Office Visit 04/22/2018 [facility] Jose Juan King, M86.172 Other acute 1:30p Services Of [place] le[place], left [place] ankle and foot Office Visit 04/19/2018 [facility] Sami Nicholson MD L97.513 Non-prs chronic 11:31a Assoc,pc ulcer oth prt right Hospitalists foot w necros muscle 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 I73.9 Peripheral vascular disease, unspecified Office Visit 04/19/2018 [facility]opedic Jose Juan King, Z47.89 Encounter for 9:33a Services [facility] [place] MATTHEWS other orthopedic aftercare Office Visit 04/18/2018 [facility] L97.513 Non-prs chronic 11:30a Assoc,SAIDA Alvarado ulcer oth prt Hospitalists right foot w necros muscle 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 I73.9 Peripheral vascular disease, unspecified F32.9 Major depressive disorder, single episode, unspecified G25.0 Essential tremor Office Visit 04/17/2018 11:30a [facility] Joe L97.513 Non-prs Assoc,trevor Ramírez M.D. chronic ulcer Hospitalists oth prt right foot w necros muscle 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 Office Visit 04/16/2018 9:11a [facility] Bautista I70.213 [facility] [place] [facility] Mahan M.D. arteries of extrm w intrmt romelia, bi legs M87.878 Other osteonecrosis, left toe(s) Office Visit 04/16/2018 1:09p [facility] Steffanie I73.9 Peripheral Assoc,trevor Bradley, vascular disease, Hospitalists [employer]ATOR REPA[employer]ER unspecified E11.51 Type 2 diabetes w diabetic 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 Office Visit 04/15/2018 12:44p [facility] Madalyn Jordan E11.52 Type 2 diabetes Elizabeth Pérez M.D. w diabetic Diseases peripheral angiopathy w gangrene Z86.73 Prsnl hx of TIA (TIA), and cereb infrc w/o resid deficits Office Visit 04/15/2018 11:29a [facility] Michelle Siu, L97.513 Non- prs [...] cerebral ischemic attack, unspecified Office Visit 12/10/2016 [facility] Tiffanie R07.2 Precordial pain 3:56p Assoc,pc Hospitalists MARJORIE Hope R55 Syncope and collapse E11.9 Type 2 diabetes mellitus without complications G45.9 Transient cerebral ischemic attack, unspecified Office Visit 12/09/2016 3:55p [facility] Orlin Junior R55 Syncope and Assoc,pc II, MFreda collapse Hospitalists R07.2 Precordial pain E11.9 Type 2 diabetes mellitus without complications G45.9 Transient cerebral ischemic attack, unspecified Office 12/09/2016 [facility] Sae Major, G45.9 Transient Visit 1:48p Clinic MFreda cerebral ischemic attack, unspecified Office 01/10/2016 [facility] Sadie Joshi R07.9 Chest pain, Visit 12:51p Assoc,pc Hospitalists MARJORIE Tatum unspecified N17.9 Acute kidney failure, unspecified E11.9 Type 2 diabetes mellitus without complications I10 Essential (primary) hypertension Office Visit 01/09/2016 12:50p [facility] Estefanía Lewis, R07.9 Chest pain , Assoc,pc N.P. unspecified Hospitalists E11.9 Type 2 diabetes mellitus without complications N17.9 Acute kidney failure, unspecified I10 Essential (primary) hypertension Office Visit 11/30/2015 [facility] Jamar Jordan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
--- OUTSIDE RECORDS SUMMARY | 2019-01-02 22:24 | XMS REPORT | Continuity of Care Document ---
:1955 External Reference #:[id number] Author Name Rosalva Sanders Care Team Providers Name Role Phone Gabbie Shell MD Primary Care Physician Unavailable Payers Date Identification Numbers Payment Provider Subscriber Effective: 2010 Policy Number: [id number] [employer] Maryam Guardado PayID: [id number] [address] [place] [address] Effective: 2018 Policy Number: [id number] Medicare Price Guardado PayID: [id number] [address] [place] [address] Expires: 2018 Policy Number: [id number] Medicare Price Guardado PayID: [id number] [address] [place] [address] Expires: 2018 Policy Number: [id number] Medicare Price Guardado PayID: [id number] [address] [place] [address] Expires: 2018 Policy Number: [id number] [employer] Maryam Guardado Group Number: [id number] [address] PayID: [id number] [place] [address] Onset: 2015 Policy Number: [id number] Jorden Price Guardado Group Number: [id number] [address] PayID: [id number] MAMADOU Pardo [id number] Advance Directives Description No Information Available Problems [...] 05/05/ Hx Capsules 250mg 30caps Take 1 [facility] 2017 - capsule Fernando 06/09/ qid [...] twice a day x 28 2018 days ([facility]) Vancomycin HCL 0000/ Hx Solution 1gm iv every Unknown 0000 - Rec 24 hours x days 2018 through ([facility]) Immunizations Description No Information Available Vital [...] Result H/L Range Note Laboratory test 11/03/2018 [facility] Vancomycin 14.1 g/mL finding [address] [place] [address] [phone] C Reactive Protein 10.00 mg/L High <8.01 CBC Auto Diff 11/03/2018 [facility] White Blood 6.5 10^3/uL N 3.5-10.[address] [place] [address] [phone] Red Blood Count 4.48 10^6/uL N 4.00-5.40 [...] Cells % 0.1 Comp Metabolic Panel 11/03/2018 [facility] Sodium 140 mmol/L N 135-[address] [place] [address] [phone] Potassium 4.3 mmol/L N 3.5-5.0 Chloride 104 [...] Egfr 42.2 >60 1 Laboratory test 10/27/2018 [facility] Vancomycin Trough 16.1 g /mL finding [address] [place] [address] [phone] C Reactive Protein 7.76 mg/L N <8.01 CBC Auto Diff 10/27/2018 [facility] White Blood 6.5 10^3/uL N 3.5-10.[address] [place] [address] [phone] Red Blood Count 4.15 10^6/uL N 4.00-5.40 [...] Cells % 0.3 Comp Metabolic Panel 10/27/2018 [facility] Sodium 136 mmol/L N 135-[address] [place] [address] [phone] Potassium 4.9 mmol/L N 3.5-5.0 Chloride 103 [...] Egfr 39.0 >60 2 Laboratory test 10/20/2018 [facility] Vancomycin Trough 12.0 g /mL finding [address] [place] [address] [phone] C Reactive Protein 6.29 mg/L N <8.01 CBC Auto Diff 10/20/2018 [facility] White Blood 9.2 10^3/uL N 3.5-10.[address] [place] [address] [phone] Red Blood Count 3.98 10^6/uL Low 4.00-5.40 [...] Cells % 0 Comp Metabolic Panel 10/20/2018 [facility] Sodium 136 mmol/L N 135-145 [address] [place] [address] [phone] Potassium 4.8 mmol/L N 3.5-5.0 Chloride 103 [...] Egfr 50.6 >60 3 Laboratory test 10/09/2018 [facility] Point of Care 115 mg/dL High 70-100 4 finding 101 [facility] [place] [address] [phone] Laboratory test 10/09/2018 [facility] Point of Care 312 mg/dL High 70-100 5 finding 101 [facility] [place] [address] [phone] Comp Metabolic 06/23/2018 [facility] Sodium 137 mmol/L N 135- 145 Panel [address] [place] [address] [phone] Potassium 4.9 mmol/L N 3.5-5.0 Chloride 107 [...] Egfr 51.8 >60 6 Laboratory test 06/23/2018 [facility] Vancomycin Trough 17.8 g /mL finding [address] [place] [address] [phone] C Reactive Protein 4.23 mg/L N <8.01 Comp Metabolic Panel 06/17/2018 [facility] Sodium 133 mmol/L Low 135-145 [address] [place] [address] [phone] Chloride 100 mmol/L Low 101-111 Co2 Carbon [...] mg/dL High 70-100 8 Laboratory test 06/17/2018 [facility] Vancomycin Trough 21.6 g /mL finding [address] [place] [address] [phone] C Reactive Protein 6.85 mg/L N <8.01 Laboratory test 06/13/2018 [facility] C Difficile PCR SEE RESULT [address] [place] [address] [phone] Laboratory test 06/11/2018 [facility] Vancomycin Trough 24.8 g /mL finding [address] [place] [address] [phone] C Reactive Protein 4.81 mg/L N <8.01 Comp Metabolic Panel 06/11/2018 [facility] Sodium 137 mmol/L N 135-[address] [place] [address] [phone] Potassium 4.4 mmol/L N 3.5-5.0 Chloride 102 [...] 53.3 >60 10 CBC Auto Diff 06/11/2018 [facility] White Blood 6.9 10^3/uL N 3.5-10.[address] [place] [address] [phone] Red Blood Count 3.88 10^6/uL Low 4.00-5.40 [...] Blood Cells % 0.1 Laboratory test 04/24/2018 [facility] Point of Care 234 mg/dL High 70-100 [address] [place] [address] [phone] Laboratory test 04/24/2018 [facility] Point of Care 232 mg/dL High 70-100 [address] [place] [address] [phone] Laboratory test 04/24/2018 [facility] Point of Care 281 mg/dL High 70-100 [address] [place] [address] [phone] Laboratory test 04/24/2018 [facility] Point of Care 331 mg/dL High 70-100 [address] [place] [address] [phone] Laboratory test 04/24/2018 [facility] Surgical SEE RESULT [address] [place] [address] [phone] Comp Metabolic 11/14/2015 [facility] Sodium 135 mmol/L N 133- [address] [place] [address] [phone] Potassium 5.0 mmol/L N 3.5-5.0 Chloride 101 [...] 112.9 N >60 16 Laboratory test 11/14/2015 [facility] C Reactive 2.79 mg/L N < 5.00 [address] [place] [address] [phone] CBC Auto Diff 11/14/2015 [facility] White Blood 8.0 N 3.5- 10.[address] Count 10^3/[place] [address] [phone] Red Blood Count 4.22 10^6/uL N 4.0-5.4 [...] Cells % 0.1 N Laboratory test 11/14/2015 [facility] Erythrocyte Sed 66 mm/Hr High 0-[address] [place] [address] [phone] Comp Metabolic 11/08/2015 [facility] Sodium 135 N 133-[address] mmol/[place] [address] [phone] Potassium 5.1 mmol/L High 3.5-5.0 Chloride 101 [...] 105.9 N >60 18 Laboratory test 11/08/2015 [facility] C Reactive 4.89 mg/L N < 5.00 [address] [place] [address] [phone] CBC Auto Diff 11/08/2015 [facility] White Blood 7.3 N 3.5- 10.[address] Count 10^3/[place] [address] [phone] Red Blood Count 4.45 10^6/uL N 4.0-5.4 [...] Cells % 0.6 N Laboratory test 11/08/2015 [facility] Erythrocyte Sed 77 mm/Hr High 0-[address] [place] [address] [phone] Comp Metabolic 10/31/2015 [facility] Sodium 134 N 133-[address] mmol/[place] [address] [phone] Potassium 4.3 mmol/L N 3.5-5.0 Chloride 100 [...] 102.1 N >60 20 Laboratory test 10/31/2015 [facility] C Reactive 9.73 mg/L High < 5.00 [address] [place] [address] [phone] CBC Auto Diff 10/31/2015 [facility] White Blood 9.1 N 3.5- 10.[address] Count 10^3/[place] [address] [phone] Red Blood Count 4.36 10^6/uL N 4.0-5.4 [...] Cells % 0.1 N Laboratory test 10/31/2015 [facility] Erythrocyte Sed 95 mm/Hr High 0-[address] [place] [address] [phone] CBC Auto Diff 10/24/2015 [facility] White Blood 10.3 N 3.5- 10.[address] Count 10^3/[place] [address] [phone] Red Blood Count 4.23 10^6/uL N 4.0-5.4 [...] % 0 N Comp Metabolic Panel 10/24/2015 [facility] Sodium 136 mmol/L N 133-[address] [place], [place] [phone] Potassium 4.9 mmol/L N 3.5-5.0 Chloride 102 [...] 92.0 N >60 22 Laboratory test 10/24/2015 [facility] C Reactive 15.74 mg/L High < 5.00 [address] Protein [place], [place] [address] [phone] Laboratory test 10/13/2015 [facility] Point of Care 150 mg/dL High 74-106 [address] [place] [address] [phone] Laboratory test 10/13/2015 [facility] Wound SEE RESULT [address] Culture/Sensi [place]OW [place], [place] [phone] Tissue (BX) Culture & Gram St SEE RESULT BELOW 26 MRSA/S. aureus Ssti PCR SEE RESULT BELOW 27 Anaerobic Culture SEE RESULT BELOW 28 Laboratory test 10/13/2015 [facility] Wound Culture/Sensi SEE RESULT [address] [place] [address] [phone] Tissue (BX) Culture & Gram St SEE RESULT BELOW 30 MRSA/S. aureus Ssti PCR SEE RESULT BELOW 31 Anaerobic Culture SEE RESULT BELOW 32 Laboratory test 10/13/2015 [facility] Wound Culture/Sensi SEE RESULT [address] [place] [address] [phone] Tissue (BX) Culture & Gram St SEE RESULT BELOW 34 MRSA/S. aureus Ssti PCR SEE RESULT BELOW 35 Anaerobic Culture SEE RESULT BELOW 36 Laboratory test 10/13/2015 [facility] Wound Culture/Sensi SEE RESULT [address] [place] [address] [phone] Tissue (BX) Culture & Gram St SEE RESULT BELOW 38 MRSA/S. aureus Ssti PCR SEE RESULT BELOW 39 Anaerobic Culture SEE RESULT BELOW 40 Laboratory test 10/13/2015 [facility] Mycobacterial See Comment N [address] [place] [address] [phone] 1 Because ethnic data is not always [...] 5 Kidney failure <15 (or dialysis) 4 Oxygen Equipment Aide: [id number] 5 Oxygen Equipment Aide: [id number] 6 Because ethnic data is not always [...] Result GLU:[id number] Called to GONSALO at: 13:25:55 by:[id number] Read back by: GONSALO 9 SEE RESULT BELOW Name: PRICE GUARDADO : [address]: Jamar Pérez MD Acct: [id number] Unit: [id number] AGE: 62 Location: [facility] Re06/13/18 SEX: M Status: REG REF SPEC: [id number] GABO: 06/13/18-[address] [facility] [address]: Jamar Pérez MD REQ: [id number] RECD: 06/13/18 STATUS: COMP _ SOURCE: STOOL SPDESC: ORDERED: C. diff PCR Procedure Result Reported Site Stool Specimen Description Final 06/13/18- 1609 ML Stool Color Brown Stool Form Formed Stool Consistency Hard C. difficile PCR Final 06/13/18- 1609 ML Test not performed * ML - Main Lab . END OF REPORT DEPARTMENT OF PATHOLOGY, [address] [place] [address] Vinayak Yanez M.D. Director [facility] # [id number] 10 Because ethnic data is not always [...] 5 Kidney failure <15 (or dialysis) 11 Oxygen Equipment Aide: [id number] 12 Oxygen Equipment Aide: [id number] 13 Oxygen Equipment Aide: [id number] 14 Oxygen Equipment Aide: [id number] 15 SEE RESULT BELOW Name: PRICE GUARDADO : [address]: Jose Juan King MD Acct: [id number] Unit: [id number] AGE: 62 Location: [place] Re04/24/18 SEX: M Status: [facility] SPEC: [id number] GABO: 04/24/18- SUBM DR: Jose Juan King MD REQ: [id number] RECD: 04/24/181440 STATUS: SOUT _ ORDERED: Decal, [...] margin blue and plantar margin black, and safety representative sections are submitted in cassettes A and B to include bone following decalcification in cassette A. Signed by and Reported on: Abby Ellis MD 04/29/18 1052 END OF REPORT DEPARTMENT OF PATHOLOGY, [address] [place] [address] Vinayak Yanez M.D. Director [facility] # [id number] 16 Because ethnic data is not always [...] (or dialysis) 23 Acute inflammation: >10.00 24 Oxygen Equipment Aide: [id number] FERNANDO PETTIT 25 SEE RESULT BELOW Name: DEBBYPRICE : [address]: Jessie Lazar MD Acct: [id number] Unit: [id number] AGE: 60 Location: [facility] Re10/13/15 SEX: M Status: REG [facility] SPEC: [id number] GABO: 10/13/15-[address] [facility] [address]: Jessie Lazar MD REQ: [id number] RECD: 10/13/15 STATUS: RES ILANAHR DR: Gabbie [...] * ML - MAIN LAB ([facility]) . END OF REPORT * ML=Testing performed at Main Lab DEPARTMENT OF PATHOLOGY, [address] [place] [address] Vinayak Yanez M.D. Director [facility] # [id number] 26 SEE RESULT BELOW Name: PRICE GUARDADO Arcenio : [address]: Jessie Lazar MD Acct: [id number] Unit: [id number] AGE: 60 Location: [facility] 338- Re10/13/15 Dis: 10/19/15 SEX: M Status: DIS IN SPEC: [id number] GABO: 10/13/15-[address] [facility] [address]: Jessie Lazar MD REQ: [id number] RECD: 10/13/15 STATUS: RES OTHR DR: Gabbie Shell MD _ SOURCE: WOUND SPDESC:KNEE LEFT ORDERED: Tissue Cult/GS/R, Fungal - Other/R, Acid Fast Stain/U COMMENTS: CLOSTRIDIUM FINDINGS IN ADDITION TO S. AUREUS: Verbal to DR. SHELL by [id number] at 1411 on 10/15/15. Results read back [...] performed at Main Lab DEPARTMENT OF PATHOLOGY, [address] [place] [address] Vinayak Yanez M.D. Director [facility] # [id number] Patient: PRICE GUARDADO [id number] (Continued) Specimen: [id number] Collected: 10/13/15 Received: 10/13/15859 (Continued) Procedure Result Reported Site Acid Fast Stain - Direct Final (continued) 10/14/15817 Due to limited sensitivity of the smear, results should be used as an adjunct in evaluating the patient's status and cultural examination is highly recommended for diagnosis. * ML - MAIN LAB ([facility]) . END OF REPORT * ML=Testing performed at Main Lab DEPARTMENT OF PATHOLOGY, [address] [place] [address] Vinayak Yanez M.D. Director [facility] # [id number] 27 SEE RESULT BELOW Name: PRICE GUARDADO : [address]: Jessie Lazar MD Acct: [id number] Unit: [id number] AGE: 60 Location: [place] [address] Re10/13/15 SEX: M Status: ADM IN SPEC: [id number] GABO: 10/13/15-[address] [facility] [address]: Jessie Lazar MD REQ: [id number] RECD: 10/13/15 STATUS: RES OTHR DR: Gabbie Shell MD _ SOURCE: WOUND SPDESC:KNEE LEFT ORDERED: Anaerobic Cult/R, MRSA/SA SSTI/R, Culture Stain/R, Fungal - Other /R, Acid Fast Stain/U COMMENTS: Verbal to GEMINI CHAWLA by [id number] at 2020 on 10/13/15. Results read back [...] performed at Main Lab DEPARTMENT OF PATHOLOGY, [address] [place] [address] Vinayak Yanez M.D. Director [facility] # [id number] Patient: PRICE GUARDADO [id number] (Continued) Specimen: [id number] Collected: 10/13/15-1639 Received: 10/13/15-1753 (Continued) Procedure Result Reported Site Acid Fast Stain - Direct Final (continued) 10/14/15809 Due to limited sensitivity of the smear, results should be used as an adjunct in evaluating the patient's status and cultural examination is highly recommended for diagnosis. * ML - MAIN LAB ([facility]) . END OF REPORT * ML=Testing performed at Main Lab DEPARTMENT OF PATHOLOGY, [address] [place] [address] Vinayak Yanez M.D. Director [place] # [id number] 28 SEE RESULT BELOW Name: PRICE GUARDADO : [address]: Jessie Lazar MD Acct: [id number] Unit: [id number] AGE: 60 Location: [facility] 338-01 Re10/13/15 Dis: 10/19/15 SEX: M Status: DIS IN SPEC: [id number] GABO: 10/13/15-[address]: Jessie Lazar MD REQ: [id number] RECD: 10/13/15 STATUS: RES OTHR DR: Gabbie Shell MD _ SOURCE: WOUND SPDESC:KNEE LEFT ORDERED: Anaerobic Cult/R, MRSA/SA SSTI/R, Culture Stain/R, Fungal - Other /R, Acid Fast Stain/U COMMENTS: Verbal to GEMINI CHAWLA by [id number] at 2020 on 10/13/15. Results read back accurately. CLOSTRIDIUM FINDINGS IN ADDITION TO S. AUREUS: Verbal to DR. SHELL by [id number] at 1411 on 10/15/15. Results read back [...] performed at Main Lab DEPARTMENT OF PATHOLOGY, [address] [place] [address] Vinayak Yanez M.D. Director [facility] # [id number] Patient: PRICE GUARDADO [id number] (Continued) Specimen: [id number] Collected: 10/13/15 Received: 10/13/15747 (Continued) Procedure Result Reported Site Wound/Misc Culture [...] These antibiotics are not available in the [facility] Formulary Contact the Microbiology Department for any additional antibiotic reporting. Fungal Cult - Other Sources Preliminary 10/24/15- 1325 ML Fungal Culture No Growth of Mycotic Organisms 1 week Acid Fast Stain - Direct Final 10/14/15- 0810 ML CONTINUED ON NEXT PAGE * ML=Testing performed at Main Lab DEPARTMENT OF PATHOLOGY, [address] [place] [address] Vinayak Yanez M.D. Director [facility] # [id number] Patient: PRICE GUARDADO [id number] (Continued) Specimen: [id number] Collected: 10/13/15 Received: 10/13/15 (Continued) Procedure Result [...] performed at Main Lab DEPARTMENT OF PATHOLOGY, [address] [place] [address] Vinayak Yanez M.D. Director [facility] # [id number] 29 SEE RESULT BELOW Name: PRICE GUARDADO Arcenio : [address]: Jessie Lazar MD Acct: [id number] Unit: [id number] AGE: 60 Location: [facility] Re10/13/15 SEX: M Status: REG [facility] SPEC: [id number] GABO: 10/13/15-[address] [facility] [address]: Jessie Lazar MD REQ: [id number] RECD: 10/13/15 STATUS: RES OTHR DR: Gabbie [...] * ML - MAIN LAB ([facility]) . END OF REPORT * ML=Testing performed at Main Lab DEPARTMENT OF PATHOLOGY, [address] [place] [address] Vinayak Yanez M.D. Director [facility] # [id number] 30 SEE RESULT BELOW Name: PRICE GUARDADO : [address]: Jessie Lazar MD Acct: [id number] Unit: [id number] AGE: 60 Location: [facility] 338-01 Re10/13/15 Dis: 10/19/15 SEX: M Status: DIS IN SPEC: [id number] GABO: 10/13/15-[address]: Jessie Lazar MD REQ: [id number] RECD: 10/13/15 STATUS: RES OTHR DR: Gabbie Shell MD _ SOURCE: WOUND SPDESC:KNEE LEFT ORDERED: Tissue Cult/GS/R, Fungal - Other/R, Acid Fast Stain/U COMMENTS: CLOSTRIDIUM FINDINGS IN ADDITION TO S. AUREUS: Verbal to DR. SHELL by [id number] at 1411 on 10/15/15. Results read back [...] performed at Main Lab DEPARTMENT OF PATHOLOGY, [address] [place] [address] Vinayak Yanez M.D. Director [facility] # [id number] Patient: DEBBYPRICE Arcenio [id number] (Continued) Specimen: [id number] Collected: 10/13/15 Received: 10/13/15 (Continued) Procedure Result [...] performed at Main Lab DEPARTMENT OF PATHOLOGY, [address] [place] [address] Vinayak Yanez M.D. Director [facility] # [id number] 31 SEE RESULT BELOW Name: PRICE GUARDADO : [address]: Jessie Lazar MD Acct: [id number] Unit: [id number] AGE: 60 Location: [facility] 338-01 Re10/13/15 SEX: M Status: ADM IN SPEC: [id number] GABO: 10/13/15-[address] [facility] [address]: Jessie Lazar MD REQ: [id number] RECD: 10/13/15 STATUS: RES OTHR DR: Gabbie Shell MD _ SOURCE: WOUND SPDESC:KNEE LEFT ORDERED: Anaerobic Cult/R, MRSA/SA SSTI/R, Culture Stain/R, Fungal - Other /R, Acid Fast Stain/U COMMENTS: Verbal to GEMINI CHAWLA by [id number] at 2020 on 10/13/15. Results read back [...] performed at Main Lab DEPARTMENT OF PATHOLOGY, [address] [place] [address] Vinayak Yanez M.D. Director [facility] # [id number] Patient: PRIEC GUARDADO [id number] (Continued) Specimen: [id number] Collected: 10/13/15 Received: 10/13/15 (Continued) Procedure Result Reported Site Acid Fast Stain - Direct Final (continued) 10/14/15809 Due to limited sensitivity of the smear, results should be used as an adjunct in evaluating the patient's status and cultural examination is highly recommended for diagnosis. * ML - MAIN LAB ([facility]) . END OF REPORT * ML=Testing performed at Main Lab DEPARTMENT OF PATHOLOGY, [address] [place] [address] Vinayak Yanez M.D. Director [facility] # [id number] 32 SEE RESULT BELOW Name: DEBBYPRICE C : [address]: Jessie Lazar MD Acct: [id number] Unit: [id number] AGE: 60 Location: [place] [address] Re10/13/15 Dis: 10/19/15 SEX: M Status: DIS IN SPEC: [id number] GABO: 10/13/15-[address] [facility] [address]: Jessie Lazar MD REQ: [id number] RECD: 10/13/15223 STATUS: RES OTHR DR: Gabbie Shell MD _ SOURCE: WOUND SPDESC:KNEE LEFT ORDERED: Anaerobic Cult/R, MRSA/SA SSTI/R, Culture Stain/R, Fungal - Other /R, Acid Fast Stain/U COMMENTS: Verbal to GEMINI CHAWLA by [id number] at 2020 on 10/13/15. Results read back accurately. CLOSTRIDIUM FINDINGS IN ADDITION TO S. AUREUS: Verbal to DR. SHELL by [id number] at 1411 on 10/15/15. Results read back [...] performed at Main Lab DEPARTMENT OF PATHOLOGY, [address] [place] [address] Vinayak Yanez M.D. Director [facility] # [id number] Patient: PRICE GUARDADO [id number] (Continued) Specimen: [id number] Collected: 10/13/15 Received: 10/13/15 (Continued) Procedure Result [...] These antibiotics are not available in the [facility] Formulary Contact the Microbiology Department for any additional antibiotic reporting. Fungal Cult - Other Sources Preliminary 10/31/15- 1443 ML Fungal Culture No Growth of Mycotic Organisms 2 weeks Acid Fast Stain - Direct Final 10/14/15- 0810 ML CONTINUED ON NEXT PAGE * ML=Testing performed at Main Lab DEPARTMENT OF PATHOLOGY, [address] [place] [address] Vinayak Yanez M.D. Director [facility] # [id number] Patient: PRICE GUARDADO [id number] (Continued) Specimen: [id number] Collected: 10/13/15-1639 Received: 10/13/15175 (Continued) Procedure Result [...] performed at Main Lab DEPARTMENT OF PATHOLOGY, [address] [place] [address] Vinayak Yanez M.D. Director [facility] # [id number] 33 SEE RESULT BELOW Name: PRICE GUARDADO : [address]: Jessie Lazar MD Acct: [id number] Unit: [id number] AGE: 60 Location: [facility] Re10/13/15 SEX: M Status: [place] [facility] [place]C: [id number] GABO: 10/13/15-[address] [facility] [address]: Jessie Lazar MD REQ: [id number] RECD: 10/13/15 STATUS: RES OTHR DR: Gabbie [...] * ML - MAIN LAB ([facility]) . END OF REPORT * ML=Testing performed at Main Lab DEPARTMENT OF PATHOLOGY, [address] [place] [address] Vinayak Yanez M.D. Director [facility] # [id number] 34 SEE RESULT BELOW Name: DEBBYPRICE C : [address]: Jessie Lazar MD Acct: [id number] Unit: [id number] AGE: 60 Location: [facility] 338-01 Re10/13/15 Dis: 10/19/15 SEX: M Status: DIS IN SPEC: [id number] GABO: 10/13/15-[address] [facility] [address]: Jessie Lazar MD REQ: [id number] RECD: 10/13/15 STATUS: RES OTHR DR: Gabbie Shell MD _ SOURCE: WOUND SPDESC:KNEE LEFT ORDERED: Tissue Cult/GS/R, Fungal - Other/R, Acid Fast Stain/U COMMENTS: CLOSTRIDIUM FINDINGS IN ADDITION TO S. AUREUS: Verbal to DR. SHELL by [id number] at 1411 on 10/15/15. Results read back [...] performed at Main Lab DEPARTMENT OF PATHOLOGY, [address] [place] [address] Vinayak Yanez M.D. Director [facility] # [id number] Patient: PRICE GUARDADO [id number] (Continued) Specimen: [id number] Collected: 10/13/15-1639 Received: 10/13/15-1755 (Continued) Procedure Result [...] performed at Main Lab DEPARTMENT OF PATHOLOGY, [address] [place] [address] Vinayak Yanez M.D. Director [facility] # [id number] 35 SEE RESULT BELOW Name: PRICE GUARDADO : [address]: Jessie Lazar MD Acct: [id number] Unit: [id number] AGE: 60 Location: [place] [address]- Re10/13/15 SEX: M Status: ADM IN SPEC: [id number] GABO: 10/13/15-[address] [facility] [address]: Jessie Lazar MD REQ: [id number] RECD: 10/13/151754 STATUS: RES OTHR DR: Gabbie Shell MD _ SOURCE: WOUND SPDESC:KNEE LEFT ORDERED: Anaerobic Cult/R, MRSA/SA SSTI/R, Culture Stain/R, Fungal - Other /R, Acid Fast Stain/U COMMENTS: Verbal to GEMINI CHAWLA by [id number] at 2020 on 10/13/15. Results read back [...] performed at Main Lab DEPARTMENT OF PATHOLOGY, [address] [place] [address] Vinayak Yanez M.D. Director [facility] # [id number] Patient: PRICE GUARDADO [id number] (Continued) Specimen: [id number] Collected: 10/13/15 Received: 10/13/15 (Continued) Procedure Result Reported Site Acid Fast Stain - Direct Final (continued) 10/14/15809 Due to limited sensitivity of the smear, results should be used as an adjunct in evaluating the patient's status and cultural examination is highly recommended for diagnosis. * ML - MAIN LAB ([facility]) . END OF REPORT * ML=Testing performed at Main Lab DEPARTMENT OF PATHOLOGY, [address] [place] [address] Vinayak Yanez M.D. Director [facility] # [id number] 36 SEE RESULT BELOW Name: PRICE GUARDADO : [address]: Jessie Lazar MD Acct: [id number] Unit: [id number] AGE: 60 Location: [facility] 338-01 Re10/13/15 Dis: 10/19/15 SEX: M Status: DIS IN SPEC: [id number] GABO: 10/13/15-[address]: Jessie Lazar MD REQ: [id number] RECD: 10/13/15 STATUS: RES OTHR DR: Gabbie Shell MD _ SOURCE: WOUND SPDESC:KNEE LEFT ORDERED: Anaerobic Cult/R, MRSA/SA SSTI/R, Culture Stain/R, Fungal - Other /R, Acid Fast Stain/U COMMENTS: Verbal to GEMINI CHAWLA by [id number] at 2020 on 10/13/15. Results read back accurately. CLOSTRIDIUM FINDINGS IN ADDITION TO S. AUREUS: Verbal to DR. SHELL by [id number] at 1411 on 10/15/15. Results read back [...] performed at Main Lab DEPARTMENT OF PATHOLOGY, [address] [place] [address] Vinayak Yanez M.D. Director [facility] # [id number] Patient: PRICE GUARDADO [id number] (Continued) Specimen: [id number] Collected: 10/13/15-1639 Received: 10/13/15 (Continued) Procedure Result [...] These antibiotics are not available in the [facility] Formulary Contact the Microbiology Department for any additional antibiotic reporting. Fungal Cult - Other Sources Preliminary 11/07/15- 1229 ML Fungal Culture No Growth of Mycotic Organisms 3 weeks Acid Fast Stain - Direct Final 10/14/15- 0810 ML CONTINUED ON NEXT PAGE * ML=Testing performed at Main Lab DEPARTMENT OF PATHOLOGY, [address] [place] [address] Vinayak Yanez M.D. Director [facility] # [id number] Patient: PRICE GUARDADO [id number] (Continued) Specimen: [id number] Collected: 10/13/15 Received: 10/13/15 (Continued) Procedure Result [...] performed at Main Lab DEPARTMENT OF PATHOLOGY, [address] [place] [address] Vinayak Yanez M.D. Director [facility] # [id number] 37 SEE RESULT BELOW Name: DEBBYPRICE : [address]: Jessie Lazar MD Acct: [id number] Unit: [id number] AGE: 60 Location: [facility] Re10/13/15 SEX: M Status: REG SDC SPEC: [id number] GABO: 10/13/15-[address] [facility] [address]: Jessie Lazar MD REQ: [id number] RECD: 10/13/15775 STATUS: RES OTHR DR: Gabbie Shell MD [...] performed at Main Lab DEPARTMENT OF PATHOLOGY, [address] [place] [address] Vinayak Yanez M.D. Director [facility] # [id number] 38 SEE RESULT BELOW Name: PRICE GUARDADO : [address]: Jessie Lazar MD Acct: [id number] Unit: [id number] AGE: 60 Location: [facility] 338-01 Re10/13/15 Dis: 10/19/15 SEX: M Status: DIS IN SPEC: [id number] GABO: 10/13/15-[address] [facility] [address]: Jessie Lazar MD REQ: [id number] RECD: 10/13/15 STATUS: COMP [facility] DR: Gabbie Shell MD _ SOURCE: WOUND SPDESC:KNEE LEFT ORDERED: Tissue Cult/GS/R, Fungal - Other/R, Acid Fast Stain/U COMMENTS: CLOSTRIDIUM FINDINGS IN ADDITION TO S. AUREUS: Verbal to DR. SHELL by [id number] at 1411 on 10/15/15. Results read back [...] performed at Main Lab DEPARTMENT OF PATHOLOGY, [address] [place] [address] Vinayak Yanez M.D. Director [facility] # [id number] Patient: DEBBYPRICE [id number] (Continued) Specimen: [id number] Collected: 10/13/15-1639 Received: 10/13/15-388 (Continued) Procedure Result Reported Site Acid Fast [...] performed at Main Lab DEPARTMENT OF PATHOLOGY, [address] [place] [address] Vinayak Yanez M.D. Director [facility] # [id number] 39 SEE RESULT BELOW Name: PRICE GUARDADO : [address]: Jessie Lazar MD Acct: [id number] Unit: [id number] AGE: 60 Location: [facility] 338-01 Re10/13/15 SEX: M Status: ADM IN SPEC: [id number] GABO: 10/13/15-[address]: Jessie Lazar MD REQ: [id number] RECD: 10/13/15 STATUS: RES OTHR DR: Gabbie Shell MD _ SOURCE: WOUND SPDESC:KNEE LEFT ORDERED: Anaerobic Cult/R, MRSA/SA SSTI/R, Culture Stain/R, Fungal - Other /R, Acid Fast Stain/U COMMENTS: Verbal to GEMINI AMY CHAWLA by [id number] at 2020 on 10/13/15. Results read back [...] performed at Main Lab DEPARTMENT OF PATHOLOGY, [address] [place] [address] Vinayak Yanez M.D. Director [facility] # [id number] Patient: PRICE GUARDADO [id number] (Continued) Specimen: [id number] Collected: 10/13/15 Received: 10/13/15 (Continued) Procedure Result Reported Site Acid Fast Stain - Direct Final (continued) 10/14/15 26 Due to limited sensitivity of the smear, results should be used as an adjunct in evaluating the patient's status and cultural examination is highly recommended for diagnosis. * ML - MAIN LAB ([facility]) . END OF REPORT * ML=Testing performed at Main Lab DEPARTMENT OF PATHOLOGY, [address] [place] [address] Vinayak Yanez M.D. Director [facility] # [id number] 40 SEE RESULT BELOW Name: PRICE GUARDADO : [address]: Jessie Lazar MD Acct: [id number] Unit: [id number] AGE: 60 Location: [facility] 338- Re10/13/15 Dis: 10/19/15 SEX: M Status: DIS IN SPEC: [id number] GABO: 10/13/15-[address] [facility] [address]: Jessie Lazar MD REQ: [id number] RECD: 10/13/151754 STATUS: [facility] DR: Gabbie Shell MD _ SOURCE: WOUND SPDESC:KNEE LEFT ORDERED: Anaerobic Cult/R, MRSA/SA SSTI/R, Culture Stain/R, Fungal - Other /R, Acid Fast Stain/U COMMENTS: Verbal to GEMINI CHAWLA by [id number] at 2020 on 10/13/15. Results read back accurately. CLOSTRIDIUM FINDINGS IN ADDITION TO S. AUREUS: Verbal to DR. SHELL by [email or web address] at 1411 on 10/15/15. Results read back [...] performed at Main Lab DEPARTMENT OF PATHOLOGY, [address] [place] [address] Vinayak Yanez M.D. Director [facility] # [id number] Patient: PRICE GUARDADO [id number] (Continued) Specimen: [id number] Collected: 10/13/15-1639 Received: 10/13/15 (Continued) Procedure Result [...] These antibiotics are not available in the [facility] Formulary Contact the Microbiology Department for any additional antibiotic reporting. Fungal Cult - Other Sources Final 11/14/15- 1427 ML Fungal Culture No Growth of Mycotic Organisms 4 weeks Acid Fast Stain - Direct Final 10/14/15- 0810 ML CONTINUED ON NEXT PAGE * ML=Testing performed at Main Lab DEPARTMENT OF PATHOLOGY, [address] [place] [address] Vinayak Yanez M.D. Director [facility] # [id number] Patient: PRICE GUARDADO [id number] (Continued) Specimen: [id number] Collected: 10/13/15-1639 Received: 10/13/15-1753 (Continued) Procedure Result [...] * ML - MAIN LAB ([facility]) . END OF REPORT * ML=Testing performed at Main Lab DEPARTMENT OF PATHOLOGY, [address] [place] [address] Vinayak Yanez M.D. Director [facility] # [id number] 41 SOURCE: KNEE, KNEE WOUND SWAB MYCOBACTERIAL CULTURE FINAL No growth after 60 days of incubation. Test Performed by: [place] [address] Claims Manager: Cam Isidro II, M.D., Ph.D. Procedures Date Code Description Status 10/11/2018 94445 EKG, Interpretation Only Completed 10/09/2018 64776 Amputation,Toe;Interphalangeal Joint Completed 10/09/2018 32003 Amputation,Toe;Interphalangeal Joint Completed 10/09/2018 92560 Amputation,Toe;Interphalangeal Joint Completed 09/22/2018 51919 EEG Recording Awake & Drowsy Completed 05/29/2018 86281 Incision Bone Cortex Foot Completed 05/29/2018 85885 Layer Closure Of Wounds 2.6CM - 7.5CM Completed Neck,Hands,Feet,Genitalia 05/29/2018 77355 Layer Closure Of Wounds 2.6CM - 7.5CM Completed Neck,Hands,Feet,Genitalia 05/29/2018 84369 Debridement Tissue/Muscle/Bone Completed 05/27/2018 14625 EKG, Interpretation Only Completed 04/24/2018 59054 Amputation,Toe;Interphalangeal Joint Completed 04/24/2018 36748 Amputation,Toe;Interphalangeal Joint Completed 04/24/2018 31434 Amputation,Toe;Interphalangeal Joint Completed 04/24/2018 02615 Amputation,Toe;Interphalangeal Joint Completed 04/24/2018 42961 Amputation,Toe;Interphalangeal Joint Completed 04/18/2018 80054 Revascularization,Endovascular W/Atherectomy, Inc Completed Angioplasty 04/18/2018 65747 Revascularization,Endovascular W/Atherectomy, Inc Completed Angioplasty 04/18/2018 75087 Angio Extremity, Bilateral Completed 04/18/2018 03750 Ultrasound Guidance For Vascular Access Completed 04/18/2018 65195 Moderate Sedation Services; Same Phys Intl 15 Mins; PT Completed >=5 Years 04/18/2018 45343 Moderate Sedation Services; Same Phys Each Additional Completed 15 Mins 12/10/2016 61164 ECHO Transthorasic Realtime 2D W Doppler & Color Flow Completed Hosp 12/09/2016 78326 EKG, Interpretation Only Completed 01/10/2016 23727 Treadmill Interp/Report Only Completed 01/10/2016 11149 Stress Test Supervsn W/Out I/R Completed 10/15/2015 21350 Arthroscopy,Knee For Infection,Lavage & Drainage Completed 10/15/2015 13656 Arthroscopy,Knee For Infection,Lavage & Drainage Completed 10/15/2015 29342 Arthroscopy,Knee For Infection,Lavage & Drainage Completed 10/15/2015 52666 Arthroscopy,Knee For Infection,Lavage & Drainage Completed 10/13/2015 41741 Arthroscopy,Knee,Meniscectomy Medial Or Lateral Completed 10/13/2015 44691 Arthroscopy,Knee,Meniscectomy Medial Or Lateral Completed 10/13/2015 61553 Arthroscopy,Knee For Infection,Lavage & Drainage Completed 05/18/2013 49410 EEG Recording Awake & Asleep Completed 03/13/2013 16209 Color Flow Doppler/Interp & Reprt Completed 03/13/2013 13517 Pulse Wave/Continuous-Interp.RPT Completed 03/13/2013 45787 Echocardiography, Transesophageal, Real Time W/Image 2D Completed W/W/O M-M 11/11/2012 13114133 Colonoscopy Completed Encounters Type Date Location Provider Dx Diagnosis Office Visit 11/13/2018 [facility] Jamar Jordan E11.69 Type 2 diabetes 1:20p Infectious Gabrielle Pérez mellitus with other Diseases specified complication Z89.422 Acquired absence of other left toe(s) M86.172 Other acute osteomyelitis, left ankle and foot Office Visit 10/23/2018 [facility] Jamar Jordan M86.9 Osteomyelitis, 2:00p For Infectious Gabrielle Pérez unspecified Diseases E11.69 Type 2 diabetes mellitus with other specified complication Z79.2 care home (current) use of antibiotics Z89.422 Acquired absence of other left toe(s) Office Visit 10/13/2018 [facility] Z98.890 Other specified 10:11a Assoctrevor NP postprocedural Hospitalists states M86.9 Osteomyelitis, unspecified K52.9 Noninfective gastroenteritis and colitis, unspecified E11.9 Type 2 diabetes mellitus without complications Z86.73 Prsnl hx of TIA (TIA), and cereb infrc w/o resid deficits G25.0 Essential tremor I73.9 Peripheral vascular disease, unspecified Office Visit 10/12/2018 [facility] Z98.890 Other specified 10:11a trevor Jackson NP postprocedural Hospitalists states M86.9 Osteomyelitis, unspecified R19.7 Diarrhea, unspecified E11.9 Type 2 diabetes mellitus without complications Z86.73 Prsnl hx of TIA (TIA), and cereb infrc w/o resid deficits G25.0 Essential tremor I73.9 Peripheral vascular disease, unspecified Office Visit 10/11/2018 [facility] Z98.890 Other specified 10:10a trevor Jackson PA postprocedural Hospitalists states M86.9 Osteomyelitis, unspecified I73.9 Peripheral vascular disease, unspecified K52.9 Noninfective gastroenteritis and colitis, unspecified F32.9 Major depressive disorder, single episode, unspecified E11.9 Type 2 diabetes mellitus without complications Z86.73 Prsnl hx of TIA (TIA), and cereb infrc w/o resid deficits G25.0 Essential tremor Office Visit 10/10/2018 12:10p [facility] Jamar Jordan E11.52 Type 2 diabetes Infectious Gabrielle Pérez w diabetic Diseases peripheral angiopathy w gangrene E11.69 Type 2 diabetes mellitus with other specified complication M86.172 Other acute osteomyelitis, left ankle and foot E11.40 Type 2 diabetes mellitus with diabetic neuropathy, unsp Office Visit 10/10/2018 [facility] Z98.890 Other specified 10:10a Assoc,SAIDA Morgan postprocedural Hospitalists states M86.9 Osteomyelitis, unspecified I73.9 Peripheral vascular disease, unspecified K52.9 Noninfective gastroenteritis and colitis, unspecified F32.9 Major depressive disorder, single episode, unspecified E11.9 Type 2 diabetes mellitus without complications Z86.73 Prsnl hx of TIA (TIA), and cereb infrc w/o resid deficits G25.0 Essential tremor Office Visit 10/09/2018 10:10a [facility] Z47.81 Encounter for Assoc,SAIDA Morgan orthopedic Hospitalists aftercare following surgical amp M86.172 Other acute osteomyelitis, left ankle and foot E11.9 Type 2 diabetes mellitus without complications I73.9 Peripheral vascular disease, unspecified I25.10 [facility]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 and signs Hospitalists involving the nervous system E11.9 Type 2 diabetes mellitus without complications I10 Essential (primary) hypertension Office Visit 09/21/2018 [facility] [place] R25.1 Tremor, 7:00a Clinic MD Lucio unspecified R47.81 Slurred speech R29.810 Facial weakness Z86.73 Prsnl hx of TIA (TIA), and cereb infrc w/o resid deficits Office Visit 09/21/2018 [facility] Carmen R41.82 Altered mental 11:16a Assoc,trevor Lawrnece NP status, Hospitalists unspecified E11.9 Type 2 [...] chronic osteomyelitis, left ankle and foot Z79.84 sheet sewer (current) use of oral hypoglycemic drugs Office Visit 09/09/2018 9:54a [facility] [place], J18.9 Pneumonia, Assoc,pc [employer] unspecified Hospitalists organism K31.84 Gastroparesis A41.9 Sepsis, unspecified organism L02.211 Cutaneous abscess of abdominal wall N17.9 Acute kidney failure, unspecified E11.9 Type 2 diabetes mellitus without complications I73.9 Peripheral vascular disease, unspecified F32.9 Major depressive disorder, single episode, unspecified Office Visit 09/07/2018 [facility] Tiffanie J18.9 Pneumonia, 9:54a Assoc,pc Jayy, [employer] unspecified Hospitalists organism R11.2 Nausea with vomiting, unspecified R10.11 Right upper quadrant pain L02.211 Cutaneous abscess of abdominal wall N17.9 Acute kidney failure, unspecified E11.9 Type 2 diabetes mellitus without complications I10 Essential (primary) hypertension F32.9 Major depressive disorder, single episode, unspecified Z86.79 Personal history of other diseases of the circulatory system Office Visit 07/25/2018 4:25p [facility] Allan Bautista I70.212 [facility] [place] [facility] M.D. arteries of extrm w intrmt romelia, left leg Office Visit 07/23/2018 12:30p [facility] Bautista I70.222 [facility] [place] [facility] M.D. arteries of extremities w rest pain, left leg Office Visit 06/16/2018 1:20p [facility] Jamar Jordan T87.44 Infection of Infectious Macqueen, amputation stump, Diseases M.D. left lower extremity T81.31xA Disruption of external operation (surgical) wound, NEC, init I73.9 Peripheral vascular disease, unspecified Z79.2 care home (current) use of antibiotics R19.7 Diarrhea, unspecified E11.51 Type 2 diabetes w diabetic 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 E11.69 Type 2 diabetes mellitus with other specified complication Office Visit 06/04/2018 1:00p [facility] Jamar Jordan T87.44 Infection of Infectious Mac, MAdriannaD. 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 Office Visit 06/03/2018 [facility] T81.31xD Disruption of 2:51p Assoc,trevor Bradley, external Hospitalists [employer] operation (surgical) wound, NEC, subs F32.9 Major depressive disorder, single episode, unspecified N17.9 Acute kidney failure, unspecified E11.9 Type 2 diabetes mellitus without complications I73.9 Peripheral vascular disease, unspecified Office Visit 06/02/2018 [facility] T81.31xD Disruption of 2:50p Assoc, Suzie Bradley, external Hospitalists [employer] operation (surgical) wound, NEC, subs F32.9 Major depressive disorder, single episode, unspecified N17.9 Acute kidney failure, unspecified E11.9 Type 2 diabetes mellitus without complications I73.9 Peripheral vascular disease, unspecified Office Visit 06/01/2018 [facility] T81.31xD Disruption of 2:50p Assoc, Suzie Bradley, external Hospitalists [employer] operation (surgical) wound, NEC, subs F32.9 Major depressive disorder, single episode, unspecified N17.9 Acute kidney failure, unspecified E11.9 Type 2 diabetes mellitus without complications I73.9 Peripheral vascular disease, unspecified Office Visit 05/31/2018 [facility] Steffanie T81.31xA Disruption of 2:50p Assoc,trevor Bradley, external Hospitalists [employer] operation (surgical) wound, NEC, init F32.9 Major depressive disorder, single episode, unspecified N17.9 Acute kidney failure, unspecified E11.9 Type 2 diabetes mellitus without complications I73.9 Peripheral vascular disease, unspecified Office Visit 05/30/2018 [facility] T81.31xD Disruption of 2:49p Assoc,pc Jayy, [employer] external Hospitalists operation (surgical) wound, NEC, subs I73.9 Peripheral vascular disease, unspecified E11.9 Type 2 diabetes mellitus without complications Office Visit 05/29/2018 [facility] T81.31xD Disruption of 2:49p Assoc,trevor Hope, [employer] external Hospitalists operation (surgical) wound, NEC, subs N17.9 Acute kidney failure, unspecified I73.9 Peripheral vascular disease, unspecified E11.9 Type 2 diabetes mellitus without complications Office Visit 05/28/2018 2:17p Orthopedic Jyoti Mcdaniels, L03.116 Cellulitis of [facility] Of [place] left lower limb C.M.A. T81.31xA Disruption of external operation (surgical) wound, NEC, init Office Visit 05/28/2018 [facility] T81.31xD Disruption of 2:48p Assoc,trevor Hope, [employer] external Hospitalists operation (surgical) wound, NEC, subs N17.9 Acute kidney failure, unspecified I73.9 Peripheral vascular disease, unspecified E11.9 Type 2 diabetes mellitus without complications Office Visit 05/28/2018 12:39p [facility] Jamar Jordan T87.81 Dehiscence of Infectious Gabrielle Pérez amputation stump Diseases T87.44 Infection of amputation stump, left lower extremity Z89.412 Acquired absence of left great toe E11.69 Type 2 diabetes mellitus with other specified complication M86.172 Other acute osteomyelitis, left ankle and foot Office Visit 05/27/2018 [facility] T81.31xD Disruption of 2:48p Assoc,pc Hope, [employer] external Hospitalists operation (surgical) wound, NEC, subs Z89.412 Acquired absence of left great toe 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 Z79.4 sheet sewer (current) use of insulin I73.9 Peripheral vascular disease, unspecified Z71.6 Tobacco abuse counseling Office Visit 05/08/2018 1:40p [facility] Jamar Jordan Z89.412 Acquired Infectious Gabrielle Pérez absence of Diseases left great toe 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 Office Visit 04/22/2018 Orthopedic Jose Juan King, M86.172 Other acute 1:30p Services Of MD leon, left [place] ankle and foot Office Visit 04/19/2018 [facility] Sami Nicholson MD L97.513 Non-prs chronic 11:31a Assoc,pc ulcer oth prt right Hospitalists foot w necros muscle 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 I73.9 Peripheral vascular disease, unspecified Office Visit 04/19/2018 [facility] Jose Juan King, Z47.89 Encounter for 9:33a [facility] [place] MATTHEWS other orthopedic aftercare Office Visit 04/18/2018 [facility] L97.513 Non-prs chronic 11:30a Assoc,SAIDA Alvarado ulcer oth prt Hospitalists right foot w necros muscle 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 I73.9 Peripheral vascular disease, unspecified F32.9 Major depressive disorder, single episode, unspecified G25.0 Essential tremor Office Visit 04/17/2018 11:30a [facility] L97.513 Non-prs Assoc,trevor Ramírez M.D. chronic ulcer Hospitalists oth prt right foot w necros muscle 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 Office Visit 04/16/2018 9:11a [facility] Bautista I70.213 [facility] [place] [facility] M.D. arteries of extrm w intrmt romelia, bi legs M87.878 Other osteonecrosis, left toe(s) Office Visit 04/16/2018 1:09p [facility] Steffanie I73.9 Peripheral Assoc,trevor Bradley, vascular disease, Hospitalists [employer] unspecified E11.51 Type 2 diabetes w diabetic 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 Office Visit 04/15/2018 12:44p [facility] Madalyn Jordan E11.52 Type 2 diabetes Elizabeth Pérez M.D. w diabetic Diseases peripheral angiopathy w gangrene Z86.73 Prsnl hx of TIA (TIA), and cereb infrc w/o resid deficits Office Visit 04/15/2018 11:29a [facility] Michelle Siu, L97.513 Non- prs Assoc,pc [...] cerebral ischemic attack, unspecified Office Visit 12/10/2016 [facility] Tiffanie R07.2 Precordial pain 3:56p Assoc,pc Hospitalists MARJORIE Hope R55 Syncope and collapse E11.9 Type 2 diabetes mellitus without complications G45.9 Transient cerebral ischemic attack, unspecified Office Visit 12/09/2016 3:55p [facility] Orlin Junior R55 Syncope and Assoc,pc II, MFreda collapse Hospitalists R07.2 Precordial pain E11.9 Type 2 diabetes mellitus without complications G45.9 Transient cerebral ischemic attack, unspecified Office 12/09/2016 [facility] Sae Major, G45.9 Transient Visit 1:48p Clinic MFreda cerebral ischemic attack, unspecified Office 01/10/2016 [facility] Sadie Joshi R07.9 Chest pain, Visit 12:51p Assoc,pc Hospitalists MARJORIE Tatum unspecified N17.9 Acute kidney failure, unspecified E11.9 Type 2 diabetes mellitus without complications I10 Essential (primary) hypertension Office Visit 01/09/2016 12:50p [facility] Estefanía Lewis, R07.9 Chest pain , Assoc,pc N.P. unspecified Hospitalists E11.9 Type 2 diabetes mellitus without complications N17.9 Acute kidney failure, unspecified I10 Essential (primary) hypertension Office Visit 11/30/2015 [facility] Jamar Jordan M00.062 Staphylococcal 3:20p For Infectious Leeanne PérezD. arthritis, left Diseases knee Office Visit 11/16/2015 [facility] Jamar Jordan M00.062 Staphylococcal 3:20p For Infectious Leeanne PérezD. arthritis, left Diseases knee B96.7 Clostridium perfringens causing diseases classd elswhr Office Visit 11/03/2015 [facility] Jamar Jordan M00.062 Staphylococcal 2:00p For Infectious Leeanne PérezD. 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 arthritis, left Diseases knee R19.7 Diarrhea, unspecified V99.xxxA Unspecified transport accident, initial encounter B96.7 Clostridium perfringens causing diseases classd elswhr Office Visit 10/17/2015 [facility] Sanchez M00.062 Staphylococcal 10:01a Assoc,trevor Shell M.D. 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 arthritis, left Hospitalists knee E11.8 Type 2 diabetes mellitus with unspecified complications Office Visit 10/13/2015 [facility] Tiffanie M00.062 Staphylococcal 9:58a Assoc,trevor Hope, [employer] arthritis, left Hospitalists knee E11.8 Type 2 [...] Gaurang Meadows M.D. Other Forms [facility] Office Visit 06/19/2013 Oscar Macario 437.9 Cerebrovascular 11:30a Gaurang Meadows M.D. Disease Or Lesion [facility] Unspec Office Visit 05/12/2013 Oscar Macario 345.40 Local-Related 10:45a Gaurang Meadows M.D. Epilepsy W/O Mention [facility] Of Intractable Epilepsy 438.89 Cerebrovascular Disease Late Effect Other 331.83 Mild Cognitive Impairment So Stated Office Visit 03/13/2013 [facility] Sanchez 435.9 TIA Ischemia 12:53p [facility] Gabrielle Warren Cerebral Transient Unspec Office Visit 03/13/2013 [facility] Nasima Colmenares, 784.51 Dysarthria 2:43p Assoc,trevor D.O. Hospitalists 272.2 Hyperlipidemia Mixed 435.9 TIA Ischemia Cerebral Transient Unspec 305.1 Tobacco Use Disorder Office Visit 03/12/2013 [facility] Sanchez 435.9 TIA Ischemia 12:52p Services Of Pal Warren M.D. 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
[2019-01-02] MEDS ORDERED: Nitro 2% OINT* (Nitroglycerin) 1 INCH/PAK PAK TOPICAL ONE (22:37)
[2019-01-02] MEDS ORDERED: Furosemide IV* 10 MG/ML VIAL (40 MG) IV SLOW PU ONE (23:19)
[2019-01-03] MEDS ORDERED: Iodixanol* (CONTRAST) 320 MG/ML 100 ML SDV IV ONE (00:43)
[2019-01-03 00:48] LABS: Troponin I 0.04 ng/mL (<0.04)
[2019-01-03] MEDS ORDERED: cefTRIAXone(*) 1 GM in NS 0.9% 50 ML* 50 ML IVPB ONE (01:16)
[2019-01-03] MEDS ORDERED: Azithromycin IV(*) 500 MG in NS 0.9% 250 ML* 250 ML IVPB ONE (01:16)
[2019-01-03] MEDS ORDERED: LORazepam INJ* 2 MG/ML 1 ML VIAL IV PUSH ONE (02:22)
[2019-01-03] MEDS ORDERED: Ondansetron INJ* 2 MG/ML VIAL IV ONE (02:22)
[2019-01-03] MEDS ORDERED: Propofol* 200 ML ONE (03:09)
[2019-01-03] MEDS ORDERED: Succinylcholine* 20 MG/ML 10 ML VIAL IV ONE (03:13)
[2019-01-03] MEDS ORDERED: Etomidate* 2 MG/ML 10 ML VIAL IV ONE ×2 (03:14→03:42)
[2019-01-03] MEDS ORDERED: nitroGLYCERIN DRIP* 25,000 MCG/250 ML BTL ONE (03:28)
[2019-01-03] MEDS ORDERED: Furosemide IV* 10 MG/ML VIAL (40 MG) ONE (03:28)
[2019-01-03] MEDS ORDERED: Furosemide IV* 10 MG/ML VIAL (40 MG) IV ONE (03:48)
[2019-01-03] MEDS ORDERED: Propofol* 100 ML IV SCH (04:00)
[2019-01-03] MEDS ORDERED: NITROGLYCERIN IV ONE (04:00)
[2019-01-03] MEDS ORDERED: Propofol* 10 MG/ML 100 ML BTL ONE (04:00)
[2019-01-03] MEDS ORDERED: [UNRECOGNIZED DRUG - OTHER] IV ONE (04:00)
[2019-01-03] MEDS ORDERED: fentaNYL* 50 MCG/ML 2 ML VIAL (100 MCG VIAL) ONE (04:42)
[2019-01-03] MEDS ORDERED: Norepinephrine 16MCG/ML IVPRE* 4,000 MCG/250 ML BAG IV ONE (04:42)
[2019-01-03] MEDS ORDERED: fentaNYL* 50 MCG/ML 2 ML VIAL (100 MCG VIAL) IV SLOW PU ONE (04:59)
[2019-01-03 05:18] VITALS: BP 87/61
== END 2019-01-03 05:00 | disposition short-term general hospital (02) ==
LOC: ED 21:05
DX: J96.01 Acute respiratory failure with hypoxia (principal); J81.1 Chronic pulmonary edema; J18.9 Pneumonia, unspecified organism; R06.02 Shortness of breath; E11.9 Type 2 diabetes mellitus without complications; I25.10 Atherosclerotic heart disease of native coronary artery without angina pectoris; I10 Essential (primary) hypertension; Z87.891 Personal history of nicotine dependence
CPT/HCPCS: 36415; 71045; 71275; 80053; 82803; 83605; 83880; 84484; 85025; 85379; 87040; 93005; 93970; 96365; 96366; 96375; 96376; 99285; A9270-GY; J0330; J0456; J0696; J1940; J2060; J2405; J2704; J3010; Q9967